=== PATIENT | male | born 1945 | race Caucasian/White ===

== ENCOUNTER → 2016-07-05 | Outpatient (REF) | payer OTHER, MEDICARE, MEDICAID ==
[2016-07-05 16:29] LABS: ALBUMIN 3.5 GM/DL (3.2-5.2); ALBUMIN/GLOBULIN RATIO 1.06 (1.00-1.93); ALKALINE PHOSPHATASE 59 U/L (45-117); ALT/SGPT 17 U/L (12-78); ANION GAP 6 MEQ/L (8-16); AST/SGOT 14 U/L (15-37); BILIRUBIN,TOTAL 0.4 MG/DL (0.2-1.0); BLOOD UREA NITROGEN 15 MG/DL (7-18); CALCIUM LEVEL 8.6 MG/DL (8.8-10.2); CARBON DIOXIDE LEVEL 28 MEQ/L (21-32); CHLORIDE LEVEL 104 MEQ/L (98-107); CHOLESTEROL LEVEL 155 MG/DL (<200); CREATININE FOR GFR 1.05 MG/DL (0.70-1.30); GLOMERULAR FILTRATION RATE > 60.0 (>42); GLUCOSE, FASTING 206 MG/DL (83-110); MAGNESIUM LEVEL 1.6 MG/DL (1.8-2.4); POTASSIUM SERUM 4.3 MEQ/L (3.5-5.1); SODIUM LEVEL 138 MEQ/L (136-145); TOTAL PROTEIN 6.8 GM/DL (6.4-8.2); TRIGLYCERIDES LEVEL 91 MG/DL (<150)
== END ==
LOC: M SFHCLACO 09:26
PROVIDERS: ATTEND Physician Assistant
DX: I10 Essential (primary) hypertension (principal); E78.1 Pure hyperglyceridemia; E11.49 Type 2 diabetes mellitus with other diabetic neurological complication; E61.2 Magnesium deficiency; E55.9 Vitamin D deficiency, unspecified

== ENCOUNTER 2016-08-08 02:58 | Emergency (ER) | payer MEDICAID, MEDICARE, OTHER ==
[~2016-08-08] VITALS: Ht 170.2 cm; Wt 100.7 kg
[2016-08-08 03:10] VITALS: BP 161/75
--- NOTE | 2016-08-08 06:20 | REPUSA ---
CLINICAL HISTORY: Right hip pain. TECHNIQUE: Multiple axial CT images were obtained through chest without IV contrast material. MPR cor onal and sagittal sequences were obtained. COMMENTS: There is no evidence of pleural or parenchymal mass. Bilateral basilar atelectatic pulmonary changes. There are no pleural effusions. There is no evidence of hilar or mediastinal lymphadenopathy. The he art and great vessels are within normal limits. The visualized portions of the liver are of uniform attenuation without mass or defect. There is no i ntra or extrahepatic biliary ductal dilatation. The spleen is unremarkable. The visualized pancreas i s of normal contour and attenuation characteristics. There is no evidence of adrenal mass. The visual ized portions of the kidneys present no abnormalities. The bony structures are free of lytic or blastic lesions. Multilevel degenerative changes are seen in volving the thoracic spine. Scattered calcifications are seen involving the aorta and visualized ana r branches compatible with atherosclerosis. Gallstones. IMPRESSION: Bilateral basilar atelectatic pulmonary changes. Gallstones. Thank you for your kind referral of this patient.
== END 2016-08-08 07:15 | disposition home or self-care (01) ==
LOC: EDBD 02:58 → M ED 04:22
DX: S20.219A Contusion of unspecified front wall of thorax, initial encounter (principal); W19.XXXA Unspecified fall, initial encounter; Y92.099 Unspecified place in other non-institutional residence as the place of occurrence of the external cause; Y93.9 Activity, unspecified; Y99.9 Unspecified external cause status; J98.8 Other specified respiratory disorders; Z88.0 Allergy status to penicillin

== ENCOUNTER → 2016-10-04 | Outpatient (REF) | payer OTHER, MEDICAID ==
[2016-10-04 15:25] LABS: ALBUMIN 3.5 GM/DL (3.2-5.2); ALBUMIN/GLOBULIN RATIO 1.06 (1.00-1.93); ALKALINE PHOSPHATASE 61 U/L (45-117); ALT/SGPT 18 U/L (12-78); ANION GAP 7 MEQ/L (8-16); AST/SGOT 12 U/L (15-37); BILIRUBIN,TOTAL 0.3 MG/DL (0.2-1.0); BLOOD UREA NITROGEN 14 MG/DL (7-18); CALCIUM LEVEL 8.7 MG/DL (8.8-10.2); CARBON DIOXIDE LEVEL 28 MEQ/L (21-32); CHLORIDE LEVEL 103 MEQ/L (98-107); CHOLESTEROL LEVEL 146 MG/DL (<200); CREATININE FOR GFR 1.03 MG/DL (0.70-1.30); GLOMERULAR FILTRATION RATE > 60.0 (>42); GLUCOSE, FASTING 115 MG/DL (83-110); MAGNESIUM LEVEL 1.7 MG/DL (1.8-2.4); SODIUM LEVEL 138 MEQ/L (136-145); TOTAL PROTEIN 6.8 GM/DL (6.4-8.2); TRIGLYCERIDES LEVEL 127 MG/DL (<150)
== END ==
LOC: M SFHCLACO 09:35
PROVIDERS: ATTEND Physician Assistant
DX: I10 Essential (primary) hypertension (principal); E78.1 Pure hyperglyceridemia; E11.49 Type 2 diabetes mellitus with other diabetic neurological complication; E61.2 Magnesium deficiency

== ENCOUNTER → 2017-03-09 | Outpatient (REF) | payer OTHER, MEDICAID ==
[2017-03-09 14:56] LABS: ALBUMIN/GLOBULIN RATIO 1.08 (1.00-1.93); BILIRUBIN,TOTAL 0.4 MG/DL (0.2-1.0); CALCIUM LEVEL 9.2 MG/DL (8.8-10.2); CREATININE FOR GFR 1.39 MG/DL (0.70-1.30); GLOMERULAR FILTRATION RATE 53.6 (>42); TOTAL PROTEIN 7.7 GM/DL (6.4-8.2)
[2017-03-09 14:57] LABS: POTASSIUM SERUM 5.3 MEQ/L (3.5-5.1)
== END ==
LOC: M SFHCLACO 10:47
PROVIDERS: ATTEND Physician Assistant
DX: I10 Essential (primary) hypertension (principal); E78.1 Pure hyperglyceridemia; E11.49 Type 2 diabetes mellitus with other diabetic neurological complication; E61.2 Magnesium deficiency; E55.9 Vitamin D deficiency, unspecified

== ENCOUNTER → 2017-06-13 | Outpatient (REF) | payer OTHER, MEDICAID ==
[2017-06-13 14:30] LABS: ALBUMIN 3.4 GM/DL (3.2-5.2); ALBUMIN/GLOBULIN RATIO 1.03 (1.00-1.93); ALKALINE PHOSPHATASE 64 U/L (45-117); ALT/SGPT 15 U/L (12-78); ANION GAP 8 MEQ/L (8-16); AST/SGOT 12 U/L (7-37); BILIRUBIN,TOTAL 0.4 MG/DL (0.2-1.0); BLOOD UREA NITROGEN 17 MG/DL (7-18); CARBON DIOXIDE LEVEL 29 MEQ/L (21-32); CHLORIDE LEVEL 108 MEQ/L (98-107); CHOLESTEROL LEVEL 158 MG/DL (<200); CREATININE FOR GFR 1.03 MG/DL (0.70-1.30); GLOMERULAR FILTRATION RATE > 60.0 (>42); GLUCOSE, FASTING 136 MG/DL (70-100); HDL CHOLESTEROL 44 MG/DL (>40); MAGNESIUM LEVEL 1.9 MG/DL (1.8-2.4); NON-HDL-C 114 MG/DL; POTASSIUM SERUM 4.3 MEQ/L (3.5-5.1); SODIUM LEVEL 145 MEQ/L (136-145); TOTAL PROTEIN 6.7 GM/DL (6.4-8.2); TRIGLYCERIDES LEVEL 95 MG/DL (<150)
[2017-06-13 14:42] LABS: ESTIMATED AVERAGE GLUCOSE 212 MG/DL (60-110)
== END ==
LOC: M SFHCLACO 09:25
DX: E78.1 Pure hyperglyceridemia (principal); I10 Essential (primary) hypertension; E11.49 Type 2 diabetes mellitus with other diabetic neurological complication; E61.2 Magnesium deficiency; E55.9 Vitamin D deficiency, unspecified
CPT/HCPCS: 83735

== ENCOUNTER 2017-10-21 18:19 | Emergency (ER) | payer OTHER, MEDICAID ==
[2017-10-21 19:35] LABS: BASO % 0.6 % (0.0-1.0); EOS # 0.4 10^3/uL (0.0-0.50); EOS % 5.2 % (0.0-3.0); HEMATOCRIT 38.1 % (42.0-52.0); HEMOGLOBIN 12.6 g/dl (13.5-17.5); IMMATURE GRANULOCYTE % 0.3 % (0-3.0); LYMPH # 1.3 10^3/uL (1.5-4.5); LYMPH % 17.6 % (24.0-44.0); MEAN CORPUSCULAR HEMOGLOBIN 28.8 pg (27.0-33.0); MEAN CORPUSCULAR HGB CONC 33.1 g/dl (32.0-36.5); MEAN CORPUSCULAR VOLUME 87.2 fl (80.0-96.0); MONO # 0.4 10^3/uL (0.0-0.8); MONO % 5.6 % (0.0-5.0); NEUTROPHILS % 70.7 % (36.0-66.0); PLATELET COUNT, AUTOMATED 231 10^3/uL (150-450); RED BLOOD COUNT 4.37 10^6/uL (4.30-6.10); RED CELL DISTRIBUTION WIDTH 13.5 % (11.5-14.5); WHITE BLOOD COUNT 7.1 10^3/uL (4.0-10.0)
[2017-10-21 19:59] LABS: ALBUMIN 3.3 GM/DL (3.2-5.2); ALBUMIN/GLOBULIN RATIO 0.89 (1.00-1.93); ALKALINE PHOSPHATASE 69 U/L (45-117); ALT/SGPT 19 U/L (12-78); ANION GAP 8 MEQ/L (8-16); AST/SGOT 12 U/L (7-37); BILIRUBIN,DIRECT < 0.1 MG/DL (0.0-0.2); BILIRUBIN,TOTAL 0.3 MG/DL (0.2-1.0); BLOOD UREA NITROGEN 22 MG/DL (7-18); CARBON DIOXIDE LEVEL 26 MEQ/L (21-32); CHLORIDE LEVEL 106 MEQ/L (98-107); GLOMERULAR FILTRATION RATE 57.9 (>42); GLUCOSE, FASTING 257 MG/DL (70-100); LIPASE 100 U/L (73-393); POTASSIUM SERUM 4.9 MEQ/L (3.5-5.1); SODIUM LEVEL 140 MEQ/L (136-145)
[2017-10-21 20:01] LABS: LACTIC ACID SEPSIS PROTOCOL 1.4 MMOL/L (0.4-2.0)
== END 2017-10-21 20:29 | disposition home or self-care (01) ==
LOC: M ED 18:19
DX: R10.9 Unspecified abdominal pain (principal); R05 Cough; E11.9 Type 2 diabetes mellitus without complications; I10 Essential (primary) hypertension; E78.9 Disorder of lipoprotein metabolism, unspecified; K21.9 Gastro-esophageal reflux disease without esophagitis; Z88.0 Allergy status to penicillin; Z79.899 Other long term (current) drug therapy; Z79.4 Long term (current) use of insulin
CPT/HCPCS: 74021

== ENCOUNTER → 2018-06-15 | Outpatient (REF) | payer OTHER, MEDICAID, MEDICARE ==
[~2018-06-15] MED LIST: BRIM1OPD OU; CALC600T7 PO; DESI13CR2 TOP; ESOM1CAP5 PO; EZET10TA PO; FERR1TAB8 PO; HYDR25TAB PO; LATA5OPD OU; LEVE1INJ5 SC; LISI-538 PO; MAGN64TASA PO; METF10004 PO; NOVOINJ3 SC; PIOG1TAB37 PO; TAB-TAB5 PO; TYLE500T78 PO; VITA50005 PO
[2018-06-15 17:41] LABS: HEMOGLOBIN A1c 8.6 %
== END ==
LOC: M LABDRAWP 14:26
PROVIDERS: ATTEND Physician Assistant
DX: Z11.3 Encounter for screening for infections with a predominantly sexual mode of transmission (principal); E11.49 Type 2 diabetes mellitus with other diabetic neurological complication

== ENCOUNTER 2018-10-14 12:26 | Emergency (ER) | payer MEDICARE, MEDICAID ==
[~2018-10-14] VITALS: Ht 170.2 cm; Wt 102.7 kg
[~2018-10-14 12:26] MED LIST changes: -EZET10TA PO; +EZET10TA21 PO; +LATA0.0013 OU; -LATA5OPD OU
[2018-10-14 12:59] LABS: BASO % 0.5 % (0.0-1.0); EOS # 0.2 10^3/uL (0.0-0.50); EOS % 1.9 % (0.0-3.0); HEMATOCRIT 37.8 % (42.0-52.0); HEMOGLOBIN 12.5 g/dl (13.5-17.5); LYMPH # 1.5 10^3/uL (1.5-4.5); LYMPH % 18.6 % (24.0-44.0); MEAN CORPUSCULAR HEMOGLOBIN 29.7 pg (27.0-33.0); MEAN CORPUSCULAR HGB CONC 33.1 g/dl (32.0-36.5); MEAN CORPUSCULAR VOLUME 89.8 fl (80.0-96.0); MONO # 0.4 10^3/uL (0.0-0.8); MONO % 5.2 % (0.0-5.0); NEUTROPHILS # 5.8 10^3/uL (1.8-7.7); NEUTROPHILS % 73.4 % (36.0-66.0); PLATELET COUNT, AUTOMATED 241 10^3/uL (150-450); RED BLOOD COUNT 4.21 10^6/uL (4.30-6.10); WHITE BLOOD COUNT 7.9 10^3/uL (4.0-10.0)
[2018-10-14 13:29] LABS: ALBUMIN 3.7 GM/DL (3.2-5.2); ALT/SGPT 19 U/L (12-78); BILIRUBIN,DIRECT 0.1 MG/DL (0.0-0.2); BILIRUBIN,TOTAL 0.4 MG/DL (0.2-1.0); CK-MB VALUE MASS 2.5 NG/ML (<3.6); CPK CREATINE PHOSPHOKINASE 114 U/L (39-308); LIPASE 67 U/L (73-393); MB/CK RELATIVE INDEX 2.19 (< OR =4); NT-PRO BNP 108 PG/ML (<125); TOTAL PROTEIN 7.3 GM/DL (6.4-8.2); TROPONIN I < 0.02 NG/ML (< 0.10)
[2018-10-14] MEDS ORDERED: ISOVUE-370 76% 100ML VIAL (Q9967) As Ordered ONE (13:39)
--- NOTE | 2018-10-14 14:27 | REP ---
CHEST, SINGLE VIEW: Single view of the chest is performed and compared to a prior study of 11/25/2017. There is mild cardiomegaly. There is no acute infiltrate. There is calcification of the thoracic aorta. The mediastinal silhouette is unchanged. IMPRESSION: No acute infiltrate. Mild cardiomegaly. Electronically Signed by Rodolfo Barfield MD 10/15/2018 12:01 A
--- NOTE | 2018-10-14 15:08 | REP ---
CT ABDOMEN AND PELVIS WITH IV CONTRAST: TECHNIQUE: Axial contrast enhanced images from the lung bases to the pubic symphysis using 100 mL Isovue 370 intravenous contrast material with multiplanar reformations. Visualized lung bases demonstrate no evidence of acute infiltrate. The liver is unremarkable. There are several gallstones in the gallbladder without evidence of gallbladder wall edema or biliary dilatation. Spleen is normal in size with no intrinsic abnormality. The adrenals and pancreas are unremarkable. The kidneys demonstrate no mass or hydronephrosis. There is atherosclerotic calcification of the abdominal aorta without aneurysm. Slightly enlarged inguinal lymph nodes bilaterally appear stable compared to the prior study of 07/20/2014. No periaortic adenopathy is seen. Anterior skin thickening of the abdomen is also similar to prior study. No bowel thickening or inflammation is seen. There is no free air or free fluid. Bladder is unremarkable in appearance. IMPRESSION: No acute findings. No free air or free fluid. Gallstones in the gallbladder without evidence of gallbladder wall edema or biliary dilatation. Mildly prominent lymph nodes in the inguinal regions are stable compared to prior CT of 07/20/2014. Electronically Signed by Rodolfo Barfield MD 10/15/2018 12:07 A
[2018-10-14 16:02] VITALS: BP 158/71
--- NOTE | 2018-10-14 19:49 | ECGEPIP ---
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
== END 2018-10-14 16:06 | disposition home or self-care (01) ==
LOC: M ED 12:26 → EDBD 12:26 → M ED 16:06
DX: R05 Cough (principal); R60.0 Localized edema; T67.9XXA Effect of heat and light, unspecified, initial encounter; X30.XXXA Exposure to excessive natural heat, initial encounter; Y92.098 Other place in other non-institutional residence as the place of occurrence of the external cause; E11.9 Type 2 diabetes mellitus without complications; I10 Essential (primary) hypertension; K21.9 Gastro-esophageal reflux disease without esophagitis; E78.1 Pure hyperglyceridemia; G62.9 Polyneuropathy, unspecified; Z88.0 Allergy status to penicillin; Z89.511 Acquired absence of right leg below knee; Z79.899 Other long term (current) drug therapy; Z79.4 Long term (current) use of insulin
CPT/HCPCS: 71045; 74177; 80047; 80076; 81001; 82550; 82553; 83690; 83880; 84443; 84484; 85025; 93005; 93041; 94760; 99285; Q9967

== ENCOUNTER 2019-03-01 12:17 | Emergency (ER) | payer MEDICARE, MEDICAID ==
[~2019-03-01] VITALS: Ht 170.2 cm; Wt 102.3 kg
[2019-03-01] MEDS ORDERED: AMLO5TAB6 PO ×2 (12:40→15:56)
--- NOTE | 2019-03-01 13:16 | REP ---
CT brain: 03/01/2019. Indication: Hemorrhage. Headache. Comparison: None. Technique: Unenhanced axial CT images of the brain were obtained from skull base to vertex. Findings: There is no acute intracranial hemorrhage, acute cortical infarction, mass effect or hydrocephalous. Volume loss is present. There are a few patchy areas of cerebral hemisphere white matter hypoattenuation most consistent with chronic small vessel disease. Impression: No acute intracranial process. Electronically Signed by Moi Crane DO 03/01/2019 01:08 P
[2019-03-01 13:25] LABS: HEMATOCRIT 37.2 % (42.0-52.0); HEMOGLOBIN 12.4 g/dl (13.5-17.5); MEAN CORPUSCULAR HEMOGLOBIN 29.5 pg (27.0-33.0); MEAN CORPUSCULAR HGB CONC 33.3 g/dl (32.0-36.5); MEAN CORPUSCULAR VOLUME 88.6 fl (80.0-96.0); PLATELET COUNT, AUTOMATED 292 10^3/uL (150-450); WHITE BLOOD COUNT 9.6 10^3/uL (4.0-10.0)
[2019-03-01 13:44] LABS: CALCIUM LEVEL 9.4 MG/DL (8.8-10.2); CREATININE FOR GFR 1.64 MG/DL (0.70-1.30); GLOMERULAR FILTRATION RATE 44.1 (>42); POTASSIUM SERUM 5.7 MEQ/L (3.5-5.1)
[2019-03-01] MEDS ORDERED: NS 1,000 ML IV ONE (14:00)
[2019-03-01] MEDS ORDERED: LISI10TA4 PO (15:56)
[2019-03-01 16:20] VITALS: BP 160/74
--- NOTE | 2019-03-01 20:05 | ECGEPIP ---
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
== END 2019-03-01 16:29 | disposition home or self-care (01) ==
LOC: EDBD 12:17 → M ED 12:17
DX: E86.0 Dehydration (principal); E87.5 Hyperkalemia; E11.9 Type 2 diabetes mellitus without complications; I10 Essential (primary) hypertension; Z79.899 Other long term (current) drug therapy; Z79.4 Long term (current) use of insulin; Z88.0 Allergy status to penicillin

== ENCOUNTER 2019-04-19 16:22 | Emergency (ER) | payer MEDICARE, MEDICAID ==
[~2019-04-19] VITALS: Ht 170.2 cm; Wt 102.2 kg
[~2019-04-19 16:22] MED LIST changes: +AMLO5TAB6 PO; +LISI10TA4 PO
[2019-04-19] MEDS ORDERED: INSUDET SC (16:42)
[2019-04-19] MEDS ORDERED: NORV5TAB PO (16:42)
[2019-04-19 18:25] VITALS: BP 144/69
== END 2019-04-19 18:26 | disposition home or self-care (01) ==
LOC: M ED 16:22 → EDBD 16:22 → M ED 18:26
DX: S70.311A Abrasion, right thigh, initial encounter (principal); W10.1XXA Fall (on)(from) sidewalk curb, initial encounter; Y92.9 Unspecified place or not applicable; E11.9 Type 2 diabetes mellitus without complications; I10 Essential (primary) hypertension; E78.5 Hyperlipidemia, unspecified; D64.9 Anemia, unspecified; Z88.0 Allergy status to penicillin; Z79.84 Long term (current) use of oral hypoglycemic drugs; Z79.4 Long term (current) use of insulin; Z79.899 Other long term (current) drug therapy

== ENCOUNTER 2020-03-18 18:56 | Inpatient (IN) | payer MEDICAID, MEDICARE, OTHER ==
[~2020-03-18] VITALS: Ht 170.2 cm; Wt 73.6 kg
[~2020-03-18 18:56] MED LIST changes: +AMLO1TAB24 PO; -AMLO5TAB6 PO; +CALC-212 PO; -CALC600T7 PO; +INSUDET SC; +NORV5TAB PO
[2020-03-18 20:15] LABS: BASO % 0.4 % (0.0-1.0); EOS % 0.1 % (0.0-3.0); HEMATOCRIT 32.1 % (42.0-52.0); HEMOGLOBIN 9.6 g/dl (13.5-17.5); LYMPH # 1.2 10^3/uL (1.5-5.0); LYMPH % 11.6 % (24.0-44.0); MEAN CORPUSCULAR HEMOGLOBIN 27.4 pg (27.0-33.0); MEAN CORPUSCULAR HGB CONC 29.9 g/dl (32.0-36.5); MEAN CORPUSCULAR VOLUME 91.5 fl (80.0-96.0); MONO # 0.6 10^3/uL (0.0-0.8); MONO % 5.7 % (0.0-5.0); NEUTROPHILS # 8.5 10^3/uL (1.5-8.5); NEUTROPHILS % 81.1 % (36.0-66.0); PLATELET COUNT, AUTOMATED 345 10^3/uL (150-450); RED BLOOD COUNT 3.51 10^6/uL (4.30-6.10); WHITE BLOOD COUNT 10.4 10^3/uL (4.0-10.0)
--- NOTE | 2020-03-18 20:18 | REP ---
INDICATION: preop COMPARISON: None. TECHNIQUE: Portable AP view of the chest FINDINGS: The mediastinum and cardiac silhouette are stable and within normal limits for portable technique. Subtle left lower lobe airspace disease cannot be excluded and requires correlation with auscultation and physical examination. No further consolidation. No effusion. No pneumothorax. Skeletal structures are intact. IMPRESSION: Questionable left lower lobe infiltrate. <Electronically signed by Vik Alcantar > 03/18/202014
--- NOTE | 2020-03-18 20:21 | REP ---
INDICATION: infection COMPARISON: None. TECHNIQUE: AP, lateral, bilateral oblique views . FINDINGS: Considerable areas of subcutaneous emphysema primarily along the lateral aspect of the distal foot. Underlying osseous changes involving the 5th toe cannot be excluded and raise the possibility of osteomyelitis. No obvious acute fracture. Underlying age-related osteopenia and degenerative changes noted. IMPRESSION: Significant subcutaneous emphysema consistent with underlying infectious process and ulceration. Osteomyelitis involving the 5th toe cannot be excluded. <Electronically signed by Vik Alcantar > 03/18/20 2017
[2020-03-18 20:25] LABS: INR 1.04; PROTHROMBIN TIME 13.8 SECONDS (12.5-14.3)
[2020-03-18 20:26] LABS: PARTIAL THROMBOPLASTIN TIME 32.5 SECONDS (24.2-38.5)
[2020-03-18] MEDS ORDERED: MEROPENEM INJ 1 GM in IV 1 EA IV ONE (20:30)
[2020-03-18 20:44] LABS: RSV AMPLIFICATION NEGATIVE (NEGATIVE)
[2020-03-18 20:55] LABS: ERYTHROCYTE SEDIMENTATION RATE 93 mm/hr (0-20)
[2020-03-18 20:56] LABS: ALBUMIN 2.2 GM/DL (3.2-5.2); ALT/SGPT 11 U/L (12-78); AMYLASE 16 U/L (25-115); BILIRUBIN,DIRECT 0.1 MG/DL (0.0-0.2); BILIRUBIN,TOTAL 0.4 MG/DL (0.2-1.0); BLOOD UREA NITROGEN 35 MG/DL (7-18); CALCIUM LEVEL 8.6 MG/DL (8.8-10.2); CARBON DIOXIDE LEVEL 17 MEQ/L (21-32); CHLORIDE LEVEL 102 MEQ/L (98-107); CK-MB VALUE MASS 6.3 NG/ML (<3.6); CPK CREATINE PHOSPHOKINASE 90 U/L (39-308); CREATININE FOR GFR 1.79 MG/DL (0.70-1.30); GLOMERULAR FILTRATION RATE 39.7 (>42); GLUCOSE, FASTING 599 MG/DL (70-100); LIPASE 59 U/L (73-393); POTASSIUM SERUM 4.7 MEQ/L (3.5-5.1); SODIUM LEVEL 135 MEQ/L (136-145); TOTAL PROTEIN 6.8 GM/DL (6.4-8.2); TROPONIN I < 0.02 NG/ML (< 0.10)
[2020-03-18] MEDS: LATANOPROST 0.005% OPHTH SOLN 2.5 ML OU SCH (21:00)
[2020-03-18] MEDS ORDERED: NS 1,000 ML IV ONE (21:00)
[2020-03-18] MEDS: BRIMONIDINE 0.1% OPHTH SOLN 5 ML OU SCH (21:00)
[2020-03-18] MEDS ORDERED: HumaLOG INSULIN (NovoLOG) PER UNIT SC STA (21:01)
[2020-03-18 21:20] LABS: OSMOLALITY SERUM 339 MOSM/KG (280-301)
[2020-03-18 21:21] LABS: ACETONE/KETONE > 46.00 MG/DL (<2.81)
[2020-03-18 21:55] LABS: ABG BASE EXCESS -12.9 (-2.0-2.0); ABG HCO3 12.5 MEQ/L (22.0-26.0); ABG O2 SATURATION 98.4 % (95.0-99.0); ABG PARTIAL PRESSURE CO2 27.4 mmHg (35.0-45.0); ABG PARTIAL PRESSURE O2 119.3 mmHg (75.0-100.0); ABG STANDARD HCO3 14.3 MEQ/L (22.0-26.0); ABG TOTAL CO2 13.3 MEQ/L (23.0-31.0); ABG pH (ARTERIAL) 7.277 UNITS (7.350-7.450)
[2020-03-18 22:02] LABS: HEMOGLOBIN A1c > 14.0 %
[2020-03-18] MEDS ORDERED: INSULIN REGULAR IN 0.9 % NACL 100 UNIT in IV 1 EA IV SCH ×4 (22:05→22:11)
[2020-03-18 22:06] LABS: ESTIMATED AVERAGE GLUCOSE 355 MG/DL (60-110)
[2020-03-18] MEDS ORDERED: NS 500 ML IV ONE (22:15)
[2020-03-18] MEDS ORDERED: HumuLIN R (REGULAR) INSULIN (NovoLIN R) **100U/ML** PER UNIT IV ONE (22:15)
[2020-03-18] MEDS ORDERED: INSULIN IV RATE CHANGE DOCUMENTATION ML/HR XX SCH (22:15)
[2020-03-18] MEDS ORDERED: LISI-538 PO (22:34)
[2020-03-18] MEDS ORDERED: INSUHUMDS SC (22:34)
[2020-03-18] MEDS ORDERED: ACET-897 PO (22:34)
[2020-03-18] MEDS ORDERED: NORV5TAB PO (22:34)
[2020-03-18] MEDS ORDERED: XALA0.007 OU (22:34)
[2020-03-18] MEDS ORDERED: VITA50005 PO (22:34)
--- NOTE | 2020-03-18 22:45 | HPEPDOC ---
[facility] Medical History & Physical Date of Admission Mar 18, 2020 Date of Service: Mar 18, 2020 Primary Care Physician: Cathleen Steen PA-C, LAC Attending Physician: JB RIZZO MD History and Physical TIME OF SERVICE: 1140pm CHIEF COMPLAINT: foot pain HISTORY OF PRESENT ILLNESS: One week ago, this 74 yr old M dropped a heavy box on his left foot which cause trauma to the top of the foot. Over the last week the pain, which he describes as dull and 4/10 in severity became worse therefore he decided to come to the hospital for evaluation. He denied having f/c/n/v/d. He admits to occasionally forgetting to take his meds, and thinks that he took them yesterday. He has been feeling thirstier than usual but denied urinating more than usual. He reported that his AM sugars usually range from 145 to 150. 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 Per office notes patient has had difficulties with compliance because of poor health literacy. FAMILY HISTORY: Denies family hx of DM, CAD, CVA or CKD ALLERGIES: Please see below. HOME MEDICATIONS: Please see below. PHYSICAL EXAMINATION: Vital Signs Date Time Temp Pulse Resp B/P (MAP) Pulse Ox O2 Delivery O2 Flow Rate FiO2 03/18/20 19:11 97.5 101 18 165/65 (98) 98 Room Air GENERAL APPEARANCE: well-nourished / well developed / NAD / doesnt appear toxic INTEGUMENT: the skin on the left foot and left lower leg is thickened & red and there are stasis dermatitis changes on the legs / there is a malodours 5cm x 6cm necrotic ulcer on the dorsal surface of the left foot; tendons of the toes are visible at the base of the ulcer HEENT: EOMI / MM slightly dry CARDIOVASCULAR: tachycardic / NMRG / radial pulses intact LUNGS: CTAB on RA ABDOMEN: contour distended MUSCULOSKELETAL: NCAT / HARPER in arms NEUROLOGICAL: CN 2-12 grossly intact / speech not dysarthric PSYCHIATRIC: A&Ox 3/ able to understand and follow all commands LABORATORY DATA: 03/18/20 20:02 IMAGING: Xray left foot IMPRESSION: Significant subcutaneous emphysema consistent with underlying infectious process and ulceration. Osteomyelitis involving the 5th toe cannot be excluded. Chest xray IMPRESSION: Questionable left lower lobe infiltrate. MICROBIOLOGY: blood cx pending. ASSESSMENT: Mr. Knott is a 74 yr old w a hx of IDDM2, polyneuropathy, R AKA, HTN, DLP and BERNADETTE who presented w c/o 1 week in duration foot pain 2/2 trauma and was found to have a necrotic DM foot ulcer on the dorsal part of his foot; he will be admitted for management of DKA and left foot osteomyelitis /cellulitis. PLAN: 1 DKA in IDDM2 He meets the criteria to diagnose DKA, specifically he has: glucose >250 + pH <7.30 + bicarbonate <18 + urine ketones + serum osmol >320 + AG >12 The triggers are likely a combination of noncompliance with meds because of poor health literacy and the foot infection. DKA MPM Score to predict risk of in hospital mortality = 0 points = 0.86% in hospital mortality Plan: admit to ICU /NPO / Insulin drip per protocol/ IVF (will start w NS w KCl @ 250ml/H / f/u blood cx, / f/u accuchecks Q1H, BMP Q4H, venous PH Q4H, osmol Q4H, Mag Q4H, phosphorus Q4H/ hypoglycemia protocol / DM education / hold all home DM meds 2. Left foot osteomyelitis / left foot and lower leg cellulitis He doesnt meet SIRS criteria Plan: admit to ICU / NPO/ IVF / Vancomycin for MRAS and Ceftriaxone for MSSA coverage / General Surgery consult / will ask the day time team to liase with to determine if additional imaging studies are needed and to contact the department of radiology to determine if MRIs will be available tomorrow (Alma Delia Watkins) if not they may consider ordering a tagged WBC scan or CT of the foot 3. BELLA vs CKD His Cr is 1.79 but I am not sure what his baseline is Plan: f/u Is and Os / f/u Ulytes for FENa / f/u PTH, Phosph, Hep C and renal US 4. Possible left lower lobe infiltrate He doesnt have URI symptoms therefore no need to treat 5. Chronic HTN Plan: amlodipine / hold Lisinopril 6. Hx of BERNADETTE Plan: f/u iron panel & stool occult / hold oral iron while acutely ill 7. DLP Plan: hold Zetia while NPO DVT Px w SCDs pending possible surgery Dispo: home after more than 2 midnights stay Laboratory Data Labs 24H Laboratory Tests 2 03/18/20 19:52: Urine Color STRAW, Urine Appearance CLEAR, Urine pH 5.0, Urine Specific [place] 1.022, Urine Protein NEGATIVE, Urine Glucose (UA) 3+H, Urine Ketones 2+H, Urine Blood NEGATIVE, Urine Nitrite NEGATIVE, Urine Bilirubin NEGATIVE, Urine Urobilinogen 0.2, Urine Leukocyte Esterase NEGATIVE, Urine WBC (Auto) 0, Urine RBC (Auto) 1, Urine Hyaline Casts (Auto) 0, Urine Bacteria (Auto) NEGATIVE, Urine Squamous Epithelial Cells 0, Urine Mucus (Auto) SMALL, Urine Sperm (Auto) 03/18/20 19:56: Coronavirus (COVID-19)(PCR) NEGATIVE, Influenza Type A (RT-PCR) NEGATIVE, Influe nza Type B (RT-PCR) NEGATIVE, Respiratory Syncytial Virus (PCR) NEGATIVE 03/18/20 20:02: Immature Granulocyte % (Auto) 1.1, Neutrophils (%) (Auto) 81.1H, Lymphocytes (%) (Auto) 11.6L, Monocytes (%) (Auto) 5.7H, Eosinophils (%) (Auto) 0.1, Basophils (%) (Auto) 0.4, Neutrophils # (Auto) 8.5, Lymphocytes # (Auto) 1.2L, Monocytes # (Auto) 0.6, Eosinophils # (Auto) 0.0, Basophils # (Auto) 0.0, Nucleated Red Blood Cells % (auto) 0.0, Erythrocyte Sedimentation Rate 93H, Prothrombin Time 13.8, Prothromb Time International Ratio 1.04, Activated Partial Thromboplast Time 32.5, Anion Gap 16, Glomerular Filtration Rate 39.7L, Estimated Mean Plasma Glucose 355H, Hemoglobin A1c > 14.0, Osmolality 339H, Lactic Acid Level 1.0, Calcium Level 8.6L, Total Bilirubin 0.4, Direct Bilirubin 0.1, Aspartate Amino Transf (AST/SGOT) 7, Alanine Aminotransferase (ALT/SGPT) 11L, Alkaline Phospha tase 103, Total Creatine Kinase 90, Creatine Kinase MB 6.3H, Creatine Kinase MB Relative Index 7.00H, Troponin I < 0.02, C-Reactive Protein, Quantitative 17.40H, Total Protein 6.8, Albumin 2.2L, Albumin/Globulin Ratio 0.5, Amylase Level 16L, Lipase 59L, B-Hydroxybutyrate > 46.00H 03/18/20 21:40: Blood Gas Bicarbonate Standard 14.3L, Arterial Blood pH 7.277L, Arterial Blood Partial Pressure CO2 27.4L, Arterial Blood Partial Pressure O2 119.3H, Arterial Blood Total CO2 13.3L, Arterial Blood HCO3 12.5L, Arterial Blood Base Excess - 12.9L, Arterial Blood Oxygen Saturation 98.4 Microbiology Microbiology 03/18/20 Blood Culture, Received Pending 03/18/20 Blood Culture, Received Pending Home Medications Scheduled Amlodipine Besylate (Norvasc) 5 Mg Tablet, 5 MG PO DAILY Brimonidine Tartrate (Alphagan P) 100 Drop/5 Ml Soln, 1 DROP OU BID Calcium Carbonate/Vitamin D3 (Calcium 600-Vit D3 200 Tablet) 1 Tab Tab, 1 TAB PO BID Ergocalciferol (Vitamin D2) (Vitamin D2) 50,000 Units Cap, 50,000 UNITS PO Q2WK Esomeprazole Magnesium (Esomeprazole Magnesium) 40 Mg Cap, 40 MG PO DAILY Ezetimibe (Ezetimibe) 10 Mg Tab, 10 MG PO DAILY Ferrous Sulfate (Ferrous Sulfate) 325 Mg Tab, 325 MG PO TID Insulin Detemir (Levemir Flextouch) 100 Unit/Ml Inj, 45 UNITS SC DAILY Insulin Detemir (Levemir) 100 Unit/1 Ml Vial, 40 UNITS SC QHS Insulin Human Lispro (Humalog) 100 Unit/1 Ml Vial, 1 DOSE SC AC PER SLIDING SCALE Latanoprost (Xalatan) 0.005% 2.5ML Drops, 1 DROP OU QHS Lisinopril (Lisinopril) 20 Mg Tablet, 20 MG PO DAILY Magnesium Chloride (Mag64) 64 Mg Tabcr, 64 MG PO BID Metformin HCl (Metformin HCl) 1,000 Mg Tab, 1,000 MG PO BID Multivitamin with Iron (Tab-A-Bharath with Iron) 1 Tab Tab, 1 TAB PO DAILY Pioglitazone HCl (Pioglitazone HCl) 30 Mg Tab, 30 MG PO DAILY Scheduled PRN Acetaminophen (Tylenol Extra Strength) 500 Mg Tablet, 1,000 MG PO Q6H PRN for PAIN / FEVER Allergies Coded Allergies: Penicillins (Verified Allergy, Mild, rash, 10/14/18) A-FIB/CHADSVASC A-FIB History Current/History of A-Fib/PAF?: No Current PO Anticoag Therapy: No JB RIZZO MD Mar 18, 2020 22:45
[2020-03-18 23:48] LABS: VENOUS BASE EXCESS -9.8 (-2.0-2.0); VENOUS HCO3 16.7 MEQ/L (23.0-27.0); VENOUS O2 SATURATION 89.4 % (60.0-80.0); VENOUS PARTIAL PRESSURE CO2 38.7 mmHg (38.0-50.0); VENOUS PARTIAL PRESSURE O2 60.3 mmHg (30.0-50.0); VENOUS PH 7.253 UNITS (7.330-7.430); VENOUS STANDARD HCO3 16.5 MEQ/L; VENOUS TOTAL CO2 17.9 MEQ/L (24.0-28.0)
[2020-03-19] MEDS ORDERED: VANCOMYCIN HCL 750 MG, VIAL MATE ADAPTER 1 EACH in D5W 250 ML IV ONE ×4 (01:00)
[2020-03-19 01:35] LABS: CALCIUM LEVEL 8.8 MG/DL (8.8-10.2); CREATININE FOR GFR 1.67 MG/DL (0.70-1.30); MAGNESIUM LEVEL 2.2 MG/DL (1.8-2.4); PHOSPHORUS LEVEL 2.5 MG/DL (2.5-4.9)
[2020-03-19 01:36] LABS: PERCENT SATURATION 34.6 % (19.7-50.0)
[2020-03-19] MEDS: KCL 20MEQ in NS 1000ML 1,000 ML IV SCH ×2 (02:14→02:57)
[2020-03-19] MEDS: INSULIN REGULAR IN 0.9 % NACL 100 UNIT in IV 1 EA IV SCH ×10 (02:41→11:41)
[2020-03-19] MEDS: cefTRIAXone SOD 2 GM in D5W MINI-BAG PLUS 50 ML IV SCH (02:57)
[2020-03-19 03:28] LABS: VENOUS BASE EXCESS -2.6 (-2.0-2.0); VENOUS HCO3 22.6 MEQ/L (23.0-27.0); VENOUS O2 SATURATION 91.5 % (60.0-80.0); VENOUS PARTIAL PRESSURE CO2 40.5 mmHg (38.0-50.0); VENOUS PARTIAL PRESSURE O2 58.2 mmHg (30.0-50.0); VENOUS PH 7.364 UNITS (7.330-7.430); VENOUS STANDARD HCO3 22.2 MEQ/L; VENOUS TOTAL CO2 23.8 MEQ/L (24.0-28.0)
[2020-03-19] MEDS: INSULIN IV RATE CHANGE DOCUMENTATION ML/HR XX SCH ×4 (04:04→11:42)
[2020-03-19 04:15] LABS: CALCIUM LEVEL 8.1 MG/DL (8.8-10.2); CREATININE FOR GFR 1.61 MG/DL (0.70-1.30); GLOMERULAR FILTRATION RATE 44.9 (>42); PHOSPHORUS LEVEL 1.8 MG/DL (2.5-4.9); POTASSIUM SERUM 3.7 MEQ/L (3.5-5.1)
[2020-03-19] MEDS: KCL 40MEQ IN D5/0.45NS 1000ML 1,000 ML IV SCH ×3 (06:11→14:59)
[2020-03-19 07:46] LABS: VENOUS BASE EXCESS -7.8 (-2.0-2.0); VENOUS HCO3 17.2 MEQ/L (23.0-27.0); VENOUS O2 SATURATION 98.8 % (60.0-80.0); VENOUS PARTIAL PRESSURE O2 139.2 mmHg (30.0-50.0); VENOUS PH 7.334 UNITS (7.330-7.430); VENOUS STANDARD HCO3 18.1 MEQ/L; VENOUS TOTAL CO2 18.2 MEQ/L (24.0-28.0)
[2020-03-19 08:08] LABS: HEMATOCRIT 28.4 % (42.0-52.0); HEMOGLOBIN 8.9 g/dl (13.5-17.5); MEAN CORPUSCULAR HEMOGLOBIN 27.9 pg (27.0-33.0); MEAN CORPUSCULAR HGB CONC 31.3 g/dl (32.0-36.5); PLATELET COUNT, AUTOMATED 331 10^3/uL (150-450); RED BLOOD COUNT 3.19 10^6/uL (4.30-6.10); WHITE BLOOD COUNT 11.6 10^3/uL (4.0-10.0)
[2020-03-19 08:27] LABS: CREATININE FOR GFR 1.31 MG/DL (0.70-1.30); GLOMERULAR FILTRATION RATE 56.9 (>42); PHOSPHORUS LEVEL 1.7 MG/DL (2.5-4.9); POTASSIUM SERUM 4.1 MEQ/L (3.5-5.1)
[2020-03-19] MEDS: amLODIPine 5 MG TAB PO SCH (08:40)
--- NOTE | 2020-03-19 08:56 | CR.PDOC ---
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 Throughout this time he was able to ambulate with some discomfort. He notes subsequent swelling of his foot, erythema of the foot and the leg. Despite this he denies any fevers or chills and generally was not feeling terribly ill. The pain became worse eventually that led him to the emergency room. In the emergency room he was fo und to have redness extending from his foot to the area below the patella. He tells me he does get some redness over the area which results with antibiotics after a few days. He does have some chronic skin changes involving that red area. Despite his history has never been seen and evaluated by a vascular surgeon. He reports neuropathy to the leg secondary to his long standing diabetes He denies night pains, claudication type pains. PAST MEDICAL HISTORY: 1. Diabetes on insulin with neuropathy, prior diabetic foot infection on the right leg resulting in a below-knee amputation 2. Hypertension . PAST SURGICAL HISTORY: INCLUDES: 1. Appendectomy 2. Right below-knee amputation. ALLERGIES: Please see below. HOME MEDICATIONS: Please see below. REVIEW OF SYSTEMS: GENERAL: Patient symptoms are roughly about 2 weeks old with progression following dropping a heavy box on his left foot. He denies fevers or chills, abnormal weight loss.. HEENT: Reports history of cataracts, wears dentures NECK: Denies any neck pain CARDIOVASCULAR: [Denies chest pain and palpitations]. MUSCULOSKELETAL: [Denies arthralgias, back pain and thrombophlebitis]. NEUROLOGIC: [Denies headache, stroke and transient ischemic attack]. HEMATOLOGY/ONCOLOGY: [Denies bleeding or clotting disorder]. Patient is not on any anticoagulant HEART: Reports a history of heart murmurs is a child. PULMONARY: [Denies chronic cough, dyspnea and wheezing]. GASTROINTESTINAL: Denies any abdominal pain, diarrhea or constipation. GENITOURINARY: Denies dysuria, reports frequency. ENDOCRINE: Reports polyuria, polydipsia INFECTIOUS: [Denies any recent upper respiratory tract infection, UTI, need for use of antibiotics]. NUTRITION: [Reports good appetite]. PHYSICAL EXAMINATION: VITALS SIGNS: Please see below. GENERAL APPEARANCE: Patient seen laying flat on bed does not appear to be in any acute distress looks overall comfortable. He is pleasant and cooperative. SKIN: Warm and dry. HEENT: [Normocephalic, atraumatic. Lips and mucosa appear dry]. NECK: [Supple, no thyromegaly. No obvious jugular venous distention]. LUNGS: [Clear to auscultation bilaterally. No wheezing appreciated]. HEART: Regular heart rate and rhythm. ABDOMEN: Abdomen is round, soft, nondistended. Nontender. EXTREMITIES: Right leg below-knee amputation. He is wearing his stump sock Left leg: Black dry gangrene on the fifth toe. He has an open wound at the metatarsal aspect medial aspect of the dorsum of the forefoot involving the metatarsal. Dry, woody appearance with black eschar of the remaining skin and subcutaneous tissue. Generalized swelling on the foot. Deep red erythema. I don't feel any crepitations, though there is some mild dermal thickening with the skin erythema. No plantar ulcers. There are small scattered necrotic ulcer of the skin laterally and at the back of his ankle, with no active drainage. The erythema of the foot extending circumferentially to the lower leg up to about 3 cm laterally below the patella with some evidence of some chronic skin changes involving that portion of the foot. Also some mild dermal thickening. No definite area of fluctuance. Sent from flaking of the skin no skin breakdown. I feel a decreased pulse on the popliteal and could not definitely feel a pulse at the dorsalis pedis or posterior tibial area felt was told that Dr. ortega were present there. Pitting edema on the leg and foot. Mild tenderness on manipulation, pressure and leg and foot. Patient only partially to rotate the an kle, small motions on the toes. Patient's only able to have good sensation at the plantar area. ANCILLARIES: LABORATORY DATA: Please see below. IMAGING STUDIES: Foot x-ray. IMPRESSION AND PLAN: 74-year-old male with diabetes, poorly controlled with diabetes ketoacidosis Right foot and leg infection secondary to recent trauma which looks like there is evidence of poor healing, necrosis, dry gangrene of the fifth toe and portion of the skin and subcutaneous at the level of the metatarsals on the first toe, scattered skin necrosis. He has ongoing cellulitis or skin infection. Certainly there is a concern for possibility of necrotizing soft tissue infection though clinically he looks well for somebody with extensive skin erythema surrounding the foot and the leg that probably this is not a necrotizing soft tissue infection of the foot or otherwise what we know as a typical diabetic foot infection that could require emergent amputation. My concern on debriding those portions with necrosis is that this won't heal as he is already demonstrating failure to heal with the dry gangrene on the forefoot. I think he needs a formal vascular evaluation. Unfortunately we don't have a vascular surgery available to us through the holiday . Looked [facility] the [facility] He does not have an acutely ischemic leg to require emergent transfer. For now, continue to elevate the leg. Continue him on antibiotics. He is hungry cell start him on a regular diet. I'll try to get some noninvasive studies over the weekend. He is human and creatinine are elevated so we cannot get contrast studies to evaluate the status of the blood vessels on his lower leg. The depth and extent of the erythema seems to be resolving slightly with an tibiotics. Still with this it's hard to ascertain whether we can save the foot are not until we know what the vascular status is. We will continue to keep an eye on him over the weekend. If he does make a turn for worsening may need an emergent guillotine amputation. Given that he already has a right below-knee amputation, the chances of him being able to ambulate is very low. I explained all this to the patient and he seems to understand that. I will hold off on any surgical debridement on the wound. I will get some noninvasive studies over the weekend. Please ask our vascular surgeon to evaluate him, Monday. He'll be followed up by the epic professional surgeon over the weekend. Vital Signs Vital Signs Date Time Temp Pulse Resp B/P (MAP) Pulse Ox O2 Delivery O2 Flow Rate FiO2 03/19/20 07:45 85 135/67 (89) 97 Room Air 03/19/20 06:14 97.7 03/19/20 02:15 18 I&Os I&O- Last 24 Hours up to 6 AM 03/19/20 06:00 Intake Total 2109 ml Balance 2109 ml Laboratory Data Labs 24H Laboratory Tests 2 03/18/20 19:52: Urine Color STRAW, Urine Appearance CLEAR, Urine pH 5.0, Urine Specific [place] 1.022, Urine Protein NEGATIVE, Urine Glucose (UA) 3+H, Urine Ketones 2+H, Urine Blood NEGATIVE, Urine Nitrite NEGATIVE, Urine Bilirubin NEGATIVE, Urine Urobilinogen 0.2, Urine Leukocyte Esterase NEGATIVE, Urine WBC (Auto) 0, Urine RBC (Auto) 1, Urine Hyaline Casts (Auto) 0, Urine Bacteria (Auto) NEGATIVE, Urine Squamous Epithelial Cells 0, Urine Mucus (Auto) SMALL, Urine Sperm (Auto) 03/18/20 19:56: Coronavirus (COVID-19)(PCR) NEGATIVE, Influenza Type A (RT-PCR) NEGATIVE, Influenza Type B (RT-PCR) NEGATIVE, Respiratory Syncytial Virus (PCR) NEGATIVE 03/18/20 20:02: Immature Granulocyte % (Auto) 1.1, Neutrophils (%) (Auto) 81.1H, Lymphocytes (%) (Auto) 11.6L, Monocytes (%) (Auto) 5.7H, Eosinophils (%) (Auto) 0.1, Basophils (%) (Auto) 0.4, Neutrophils # (Auto) 8.5, Lymphocytes # (Auto) 1.2L, Monocytes # (Auto) 0.6, Eosinophils # (Auto) 0.0, Basophils # (Auto) 0.0, Nucleated Red Blood Cells % (auto) 0.0, Erythrocyte Sedimentation Rate 93H, Prothrombin Time 13.8, Prothromb Time International Ratio 1.04, Activated Partial Thromboplast Time 32.5, Anion Gap 16, Glomerular Filtration Rate 39.7L, Estimated Mean Plasma Glucose 355H, Hemoglobin A1c > 14.0, Osmolality 339H, Lactic Acid Level 1.0, Calcium Level 8.6L, Total Bilirubin 0.4, Direct Bilirubin 0.1, Aspartate Amino Transf (AST/SGOT) 7, Alanine Aminotransferase (ALT/SGPT) 11L, Alkaline Phosphatase 103, Total Creatine Kinase 90, Creatine Kinase MB 6.3H, Creatine Kinase MB Relative Index 7.00H, Troponin I < 0.02, C-Reactive Protein, Quantitative 17.40H, Total Protein 6.8, Albumin 2.2L, Albumin/Globulin Ratio 0.5, Amylase Level 16L, Lipase 59L, B-Hydroxybutyrate > 46.00H 03/18/20 21:40: Blood Gas Bicarbonate Standard 14.3L, Arterial Blood pH 7.277L, Arterial Blood Partial Pressure CO2 27.4L, Arterial Blood Partial Pressure O2 119.3H, Arterial Blood Total CO2 13.3L, Arterial Blood HCO3 12.5L, Arterial Blood Base Excess - 12.9L, Arterial Blood Oxygen Saturation 98.4 03/18/20 22:34: Bedside Glucose (Misc Panel) 355H 03/18/20 23:08: Bedside Glucose (Misc Panel) 285H 03/18/20 23:40: Blood Gas Puncture Site UNKNOWN, Blood Gas Bicarbonate Standard 16.5, Venous Blood pH 7.253L, Venous Blood Partial Pressure CO2 38.7, Venous Blood Partial Pressure O2 60.3H, Venous Blood Total Carbon Dioxide 17.9L, Venous Blood HCO3 1 6.7L, Venous Blood Oxygen Saturation 89.4H, Venous Blood Base Excess -9.8L, Anion Gap 13, Glomerular Filtration Rate 43.0, Osmolality 329H, Calcium Level 8.8, Phosphorus Level 2.5, Magnesium Level 2.2, Iron Level 54L, Total Iron Binding Capacity 156L, Transferrin % Saturation 34.6, Ferritin 1016H 03/19/20 00:22: Bedside Glucose (Misc Panel) 230H 03/19/20 01:35: Bedside Glucose (Misc Panel) 215H 03/19/20 02:35: Bedside Glucose (Misc Panel) 207H 03/19/20 03:21: Anion Gap 10, Glomerular Filtration Rate 44.9, Osmolality 311H, Calcium Level 8.1L, Phosphorus Level 1.8#L 03/19/20 03:22: Blood Gas Bicarbonate Standard 22.2, Venous Blood pH 7.364, Venous Blood Partial Pressure CO2 40.5, Venous Blood Partial Pressure O2 58.2H, Venous Blood Total Carbon Dioxide 23.8L, Venous Blood HCO3 22.6L, Venous Blood Oxygen Saturation 91.5H, Venous Blood Base Excess -2.6L 03/19/20 03:57: Bedside Glucose (Misc Panel) 135H 03/19/20 05:12: Bedside Glucose (Misc Panel) 94 03/19/20 06:47: Bedside Glucose (Misc Panel) 137H 03/19/20 07:40: Nucleated Red Blood Cells % (auto) 0.0, Blood Gas Bicarbonate Standard 18.1, Venous Blood pH 7.334, Venous Blood Partial Pressure CO2 33.0L, Venous Blood Partial Pressure O2 139.2H, Venous Blood Total Carbon Dioxide 18.2L, Venous Blood HCO3 17.2L, Venous Blood Oxygen Saturation 98.8H, Venous Blood Base Excess -7.8L, Anion Gap 12, Glomerular Filtration Rate 56.9, Calcium Level 8.0L, Phosphorus Level 1.7L CBC/BMP Laboratory Tests 03/18/20 20:02 03/18/20 23:40 03/19/20 03:21 03/19/20 07:40 Microbiology Microbiology 03/18/20 Blood Culture, Received Pending 03/18/20 Blood Culture, Received Pending Home Medications Scheduled Amlodipine Besylate (Norvasc) 5 Mg Tablet, 5 MG PO DAILY, (Reported) Brimonidine Tartrate (Alphagan P) 100 Drop/5 Ml Soln, 1 DROP OU BID, (Reported) Calcium Carbonate/Vitamin D3 (Calcium 600-Vit D3 200 Tablet) 1 Tab Tab, 1 TAB PO BID, (Reported) Ergocalciferol (Vitamin D2) (Vitamin D2) 50,000 Units Cap, 50,000 UNITS PO Q2WK, (Reported) Esomeprazole Magnesium (Esomeprazole Magnesium) 40 Mg Cap, 40 MG PO DAILY, (Reported) Ezetimibe (Ezetimibe) 10 Mg Tab, 10 MG PO DAILY, (Reported) Ferrous Sulfate (Ferrous Sulfate) 325 Mg Tab, 325 MG PO TID, (Reported) Insulin Detemir (Levemir Flextouch) 100 Unit/Ml Inj, 45 UNITS SC DAILY, (Reported) Insulin Detemir (Levemir) 100 Unit/1 Ml Vial, 40 UNITS SC QHS, (Reported) Insulin Human Lispro (Humalog) 100 Unit/1 Ml Vial, 1 DOSE SC AC, (Reported) PER SLIDING SCALE Latanoprost (Xalatan) 0.005% 2.5ML Drops, 1 DROP OU QHS, (Reported) Lisinopril (Lisinopril) 20 Mg Tablet, 20 MG PO DAILY, (Reported) Magnesium Chloride (Mag64) 64 Mg Tabcr, 64 MG PO BID, (Reported) Metformin HCl (Metformin HCl) 1,000 Mg Tab, 1,000 MG PO BID, (Reported) Multivitamin with Iron (Tab-A-Bharath with Iron) 1 Tab Tab, 1 TAB PO DAILY, (Reported) Pioglitazone HCl (Pioglitazone HCl) 30 Mg Tab, 30 MG PO DAILY, (Reported) Scheduled PRN Acetaminophen (Tylenol Extra Strength) 500 Mg Tablet, 1,000 MG PO Q6H PRN for PAIN / FEVER, (Reported) Allergies Coded Allergies: Penicillins (Verified Allergy, Mild, rash, 10/14/18) SAMI BARAKAT MD Mar 19, 2020 08:56
--- NOTE | 2020-03-19 09:25 | IPNPDOC ---
Date Seen The patient was seen on 03/19/20. Progress Note S:C/O 4/10 discomfort in left LE. remains in DKA on insulin iv gtt. c/o thirst. no abd pain/m/v. O: PE VITALS SEE BELOW GENERAL APPEARANCE: disheveled. appears his stated age. no respiratory distress. HEENT: no JVD, thyromegaly, or cervical LAD, dry mm Heart: S1 S2 RRR LUNGS: AEBE CTAB no adventitious breath sounds. no distress or use of resp acc mm ABDOMEN: Soft nt nd +bs x 4 quadrants EXT: right BKA, left foot w necrotic black eschar on left lateral foot w necrotic ulcer 5cm/x5cm on dorsum, malodorous exposed tendons on toes at base of the ulcer. chronic edema and venous changes LABORATORY DATA:see below IMAGING: Xray left foot IMPRESSION: Significant subcutaneous emphysema consistent with underlying infectious process and ulceration. Osteomyelitis involving the 5th toe cannot be excluded. Chest xray IMPRESSION: Questionable left lower lobe infiltrate. MICROBIOLOGY: blood cx pending. ASSESSMENT: 74 yr old w a hx of IDDM2, polyneuropathy, R AKA, HTN, DLP and BERNADETTE c/o 1wk h/o trauma to left foot admitted for DKA and left foot dry gangrene/cellulitis. PROBLEM LIST: DKA -Patient's anion gap is closed, bicarbonate is 19. He may be given Levemir insulin, but will change to 25 units subcutaneous twice a day for better glycemic control. -Patient's insulin drip may be discontinued at noon. Repeat BMP in 4 hours to make sure that the mammogram remains closed and bicarbonate remains above 21. -Patient may have a consistent carbohydrate diet at noon. Fingersticks can be changed to every before meals and at bedtime at that time and insulin sliding scale per [facility] protocol. -Patient has baseline peripheral neuropathy and only complains of 4 out of 10 pain in the left lower extremity, but will give pain medications as needed. -Check A1c Traumatic injury to Left Foot at home. -Resulting in left foot and lower extremity cellulitis and possible osteomyelitis -Elevate the left lower extremity on 2 pillows while supine -Avoid full weightbearing on this foot Left foot osteomyelitis / left foot and lower leg cellulitis/, dry gangrene -Patient most likely has severe peripheral vascular disease In light of his long-standing type 2 diabetes and hypertensive disease -check arterial Dopplers and vascular surgical consult for revascularization prior to amputation as recommended by general surgery -Currently on broad-spectrum antibiotics with vancomycin for possible MRSA. Check MRSA screen -On IV Zosyn for possible Pseudomonas. -Blood cultures have been obtained -Monitor sedimentation rate, CRP, and pro-calcitonin periodically -Gen. surgery, Dr. Newton has been consulted for possible debridement and amputation once revascularization is completed -Vascular Surgery is currently not available, we'll need to consult on Monday -Since the patient has had this traumatic injury and has had this issue for over 2 weeks, Patient does not require emergent revascularization. Peripheral vascular disease -check arterial Dopplers and vascular surgical consult for revascularization prior to amputation as recommended by general surgery -Vascular Surgery is currently not available, we'll need to consult on Monday -Since the patient has had this traumatic injury and has had this issue for over 2 weeks, Patient does not require emergent revascularization. CKD3 -Probably at baseline creatinine. Avoid nephrotoxins. -Renally dose all medications -since the patient is on vancomycin, We will need to check daily metabolic panel and Vanco peak and trough to Avoid nephrotoxicity left lower lobe infiltrate -No complaints of cough or fever. Currently on broad-spectrum antibiotics, vancomycin, Zosyn, day #2 -If possible, obtain a sputum culture, urine Legionella, urine streptococcal antigen Chronic HTN -Resumed on home medications Hx of BERNADETTE -No acute indication for RBC transfusion -No signs or symptoms of acute GI bleed DLP -Chronic -Check lipid profile -Resume home medications Disposition: 5-7 days depending on vascular surgical revascularization and completion of 7 days of antibiotics. Patient may need surgical debridement during this hospital stay Patient may be transferred to medical surgical floor later today once off the insulin drip. VS, I&O, 24H, Pending Sale To [facility] Vital Signs/I&O Vital Signs Date Time Temp Pulse Resp B/P (MAP) Pulse Ox O2 Delivery O2 Flow Rate FiO2 03/19/20 06:14 97.7 03/19/20 04:30 85 134/66 (88) 98 03/19/20 02:15 18 Room Air I&O- Last 24 Hours up to 6 AM 03/19/20 06:00 Intake Total 2109 ml Balance 2109 ml Laboratory Data 24H LABS Laboratory Tests 2 03/18/20 19:52: Urine Color STRAW, Urine Appearance CLEAR, Urine pH 5.0, Urine Specific [place] 1.022, Urine Protein NEGATIVE, Urine Glucose (UA) 3+H, Urine Ketones 2+H, Urine Blood NEGATIVE, Urine Nitrite NEGATIVE, Urine Bilirubin NEGATIVE, Urine Urobilinogen 0.2, Urine Leukocyte Esterase NEGATIVE, Urine WBC (Auto) 0, Urine RBC (Auto) 1, Urine Hyaline Casts (Auto) 0, Urine Bacteria (Auto) NEGATIVE, Urine Squamous Epithelial Cells 0, Urine Mucus (Auto) SMALL, Urine Sperm (Auto) 03/18/20 19:56: Coronavirus (COVID-19)(PCR) NEGATIVE, Influenza Type A (RT-PCR) NEGATIVE, Influenza Type B (RT-PCR) NEGATIVE, Respiratory Syncytial Virus (PCR) NEGATIVE 03/18/20 20:02: Immature Granulocyte % (Auto) 1.1, Neutrophils (%) (Auto) 81.1H, Lymphocytes (%) (Auto) 11.6L, Monocytes (%) (Auto) 5.7H, Eosinophils (%) (Auto) 0.1, Basophils (%) (Auto) 0.4, Neutrophils # (Auto) 8.5, Lymphocytes # (Auto) 1.2L, Monocytes # (Auto) 0.6, Eosinophils # (Auto) 0.0, Basophils # (Auto) 0.0, Nucleated Red Blood Cells % (auto) 0.0, Erythrocyte Sedimentation Rate 93H, Prothrombin Time 13.8, Prothromb Time International Ratio 1.04, Activated Partial Thromboplast Time 32.5, Anion Gap 16, Glomerular Filtration Rate 39.7L, Estimated Mean Plasma Glucose 355H, Hemoglobin A1c > 14.0, Osmolality 339H, Lactic Acid Level 1.0, Calcium Level 8.6L, Total Bilirubin 0.4, Direct Bilirubin 0.1, Aspartate Amino Transf (AST/SGOT) 7, Alanine Aminotransferase (ALT/SGPT) 11L, Alkaline Phosphatase 103, Total Creatine Kinase 90, Creatine Kinase MB 6.3H, Creatine Kinase MB Relative Index 7.00H, Troponin I < 0.02, C-Reactive Protein, Quantitative 17.40H, Total Protein 6.8, Albumin 2.2L, Albumin/Globulin Ratio 0.5, Amylase Level 16L, Lipase 59L, B-Hydroxybutyrate > 46.00H 03/18/20 21:40: Blood Gas Bicarbonate Standard 14.3L, Arterial Blood pH 7.277L, Arterial Blood Partial Pressure CO2 27.4L, Arterial Blood Partial Pressure O2 119.3H, Arterial Blood Total CO2 13.3L, Arterial Blood HCO3 12.5L, Arterial Blood Base Excess - 12.9L, Arterial Blood Oxygen Saturation 98.4 03/18/20 22:34: Bedside Glucose (Misc Panel) 355H 03/18/20 23:08: Bedside Glucose (Misc Panel) 285H 03/18/20 23:40: Blood Gas Puncture Site UNKNOWN, Blood Gas Bicarbonate Standard 16.5, Venous Blood pH 7.253L, Venous Blood Partial Pressure CO2 38.7, Venous Blood Partial Pressure O2 60.3H, Venous Blood Total Carbon Dioxide 17.9L, Venous Blood HCO3 16.7L, Venous Blood Oxygen Saturation 89.4H, Venous Blood Base Excess -9.8L, Anion Gap 13, Glomerular Filtration Rate 43.0, Osmolality 329H, Calcium Level 8.8, Phosphorus Level 2.5, Magnesium Level 2.2, Iron Level 54L, Total Iron Binding Capacity 156L, Transferrin % Saturation 34.6, Ferritin 1016H 03/19/20 00:22: Bedside Glucose (Misc Panel) 230H 03/19/20 01:35: Bedside Glucose (Misc Panel) 215H 03/19/20 02:35: Bedside Glucose (Misc Panel) 207H 03/19/20 03:21: Anion Gap 10, Glomerular Filtration Rate 44.9, Osmolality 311H, Calcium Level 8.1L, Phosphorus Level 1.8#L 03/19/20 03:22: Blood Gas Bicarbonate Standard 22.2, Venous Blood pH 7.364, Venous Blood Partial Pressure CO2 40.5, Venous Blood Partial Pressure O2 58.2H, Venous Blood Total Carbon Dioxide 23.8L, Venous Blood HCO3 22.6L, Venous Blood Oxygen Saturation 91.5H, Venous Blood Base Excess -2.6L 03/19/20 03:57: Bedside Glucose (Misc Panel) 135H 03/19/20 05:12: Bedside Glucose (Misc Panel) 94 03/19/20 06:47: Bedside Glucose (Misc Panel) 137H CBC/BMP Laboratory Tests 03/18/20 20:02 03/18/20 23:40 03/19/20 03:21 Microbiology Microbiology 03/18/20 Blood Culture, Received Pending 03/18/20 Blood Culture, Received Pending GINETTE URBAN MD Mar 19, 2020 07:29
[2020-03-19 09:34] LABS: FOLATE 11.3 NG/ML (>5.4)
[2020-03-19] MEDS: NEUTRA-PHOS 1.5 GM PACKET PO SCH ×4 (10:19→21:05)
[2020-03-19] MEDS: BRIMONIDINE 0.1% OPHTH SOLN 5 ML OU SCH ×2 (10:19→21:04)
[2020-03-19] MEDS: LEVEMIR (INSULIN DETEMIR) 1 UNITS/0.01ML SC SCH ×2 (10:30→21:04)
[2020-03-19 10:46] LABS: VENOUS BASE EXCESS -2.1 (-2.0-2.0); VENOUS HCO3 22.6 MEQ/L (23.0-27.0); VENOUS O2 SATURATION 99.5 % (60.0-80.0); VENOUS PARTIAL PRESSURE CO2 38.6 mmHg (38.0-50.0); VENOUS PARTIAL PRESSURE O2 169.4 mmHg (30.0-50.0); VENOUS PH 7.386 UNITS (7.330-7.430); VENOUS STANDARD HCO3 22.7 MEQ/L; VENOUS TOTAL CO2 23.8 MEQ/L (24.0-28.0)
[2020-03-19] MEDS ORDERED: GLUCAGON INJ 1MG VIAL SC PRN (12:15)
[2020-03-19] MEDS ORDERED: GLUCOSE 4GM CHEW TABLET PO PRN (12:15)
[2020-03-19] MEDS ORDERED: DEXTROSE 50% 50 ML SYRINGE IV PRN (12:15)
[2020-03-19] MEDS ORDERED: MAG SULF 1GM/100ML (MAG RUN) 1 GM in IV 1 EA IV ONE (12:30)
[2020-03-19 12:48] LABS: CALCIUM LEVEL 8.4 MG/DL (8.8-10.2); CREATININE FOR GFR 1.38 MG/DL (0.70-1.30); GLOMERULAR FILTRATION RATE 53.6 (>42); MAGNESIUM LEVEL 1.9 MG/DL (1.8-2.4); PHOSPHORUS LEVEL 1.4 MG/DL (2.5-4.9)
[2020-03-19 13:45] VITALS: BP 126/74
[2020-03-19 14:51] LABS: VENOUS BASE EXCESS -2.9 (-2.0-2.0); VENOUS HCO3 22.7 MEQ/L (23.0-27.0); VENOUS O2 SATURATION 94.3 % (60.0-80.0); VENOUS PARTIAL PRESSURE CO2 42.5 mmHg (38.0-50.0); VENOUS PARTIAL PRESSURE O2 70.9 mmHg (30.0-50.0); VENOUS PH 7.345 UNITS (7.330-7.430)
[2020-03-19] MEDS: VANCOMYCIN HCL 1,000 MG, VIAL MATE ADAPTER 1 EACH in D5W 250 ML IV SCH (14:52)
[2020-03-19] MEDS: HumaLOG INSULIN (NovoLOG) PER UNIT SC SCH ×2 (17:40→21:03)
[2020-03-19] MEDS: LATANOPROST 0.005% OPHTH SOLN 2.5 ML OU SCH (21:05)
[2020-03-19 22:00] VITALS: BP 111/55
[2020-03-20] MEDS: cefTRIAXone SOD 2 GM in D5W MINI-BAG PLUS 50 ML IV SCH (02:08)
[2020-03-20 06:00] VITALS: BP 121/67
[2020-03-20] MEDS: HumaLOG INSULIN (NovoLOG) PER UNIT SC SCH ×4 (07:30→21:55)
--- NOTE | 2020-03-20 07:32 | ECGEPIP ---
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
[2020-03-20] MEDS: LEVEMIR (INSULIN DETEMIR) 1 UNITS/0.01ML SC SCH ×2 (08:09→21:22)
[2020-03-20 08:17] LABS: BASO % 0.3 % (0.0-1.0); EOS # 0.1 10^3/uL (0.0-0.5); EOS % 1.1 % (0.0-3.0); HEMATOCRIT 29.6 % (42.0-52.0); HEMOGLOBIN 9.1 g/dl (13.5-17.5); LYMPH # 2.1 10^3/uL (1.5-5.0); LYMPH % 17.2 % (24.0-44.0); MEAN CORPUSCULAR HEMOGLOBIN 27.6 pg (27.0-33.0); MEAN CORPUSCULAR HGB CONC 30.7 g/dl (32.0-36.5); MEAN CORPUSCULAR VOLUME 89.7 fl (80.0-96.0); MONO # 0.9 10^3/uL (0.0-0.8); MONO % 7.4 % (0.0-5.0); NEUTROPHILS # 8.8 10^3/uL (1.5-8.5); NEUTROPHILS % 73.3 % (36.0-66.0); PLATELET COUNT, AUTOMATED 336 10^3/uL (150-450); WHITE BLOOD COUNT 12.1 10^3/uL (4.0-10.0)
--- NOTE | 2020-03-20 08:41 | IPNPDOC ---
Date Seen The patient was seen on 03/20/20. Progress Note S: not feeling well, diaphoretic, and shaky, and was found to be hypoglycemic this am. 3/10 pain in left foot and still malodorous. no fever or chills. given orange juice. O: PE VITALS SEE BELOW GENERAL APPEARANCE: disheveled. HEENT: no JVD, thyromegaly, or cervical LAD, dry mm Heart: S1 S2 RRR LUNGS: AEBE CTAB no adventitious breath sounds. ABDOMEN: Soft nt nd +bs x 4 quadrants EXT: right BKA, left foot w necrotic black eschar on left lateral foot w necrotic ulcer 5cm/x5cm on dorsum, malodorous exposed tendons on toes at base of the ulcer. chronic edema and venous changes LABORATORY DATA:see below IMAGING: Xray left foot IMPRESSION: Significant subcutaneous emphysema consistent with underlying infectious process and ulceration. Osteomyelitis involving the 5th toe cannot be excluded. Chest xray IMPRESSION: Questionable left lower lobe infiltrate. MICROBIOLOGY: blood cx pending. ASSESSMENT: 74 yr old w a hx of IDDM2, polyneuropathy, R AKA, HTN, DLP and BERNADETTE c/o 1wk h/o trauma to left foot admitted for DKA and left foot dry gangrene/cellulitis. PROBLEM LIST: DKA , resolved -hypoglycemic today, on protocol -start on d5 x 1liter -continue fingersticks Traumatic injury to Left Foot at home. -on abx for gangrene and cellulitis. surgery to debride vs amputate. -Elevate the left lower extremity on 2 pillows while supine -Avoid full weightbearing on this foot Left foot osteomyelitis / left foot and lower leg cellulitis/, dry gangrene -on IV antibiotics. -vascular surgical consult for revascularization prior to amputation as recommended by general surgery -Vascular Surgery is currently not available, we'll need to consult on Monday -Since the patient has had this traumatic injury and has had this issue for over 2 weeks, Patient does not require emergent revascularization. Peripheral vascular disease -carterial Dopplers and vascular surgical consult for revascularization prior to amputation as recommended by general surgery -Vascular Surgery is currently not available, we'll need to consult on Monday -Since the patient has had this traumatic injury and has had this issue for over 2 weeks, Patient does not require emergent revascularization. CKD3 -Probably at baseline creatinine. Avoid nephrotoxins. -Renally dose all medications -since the patient is on vancomycin, We will need to check daily metabolic panel and Vanco peak and trough to Avoid nephrotoxicity left lower lobe infiltrate -No complaints of cough or fever. Currently on broad-spectrum antibiotics, vancomycin, Zosyn, day #3 Chronic HTN -Resumed on home medications Hx of BERNADETTE -No acute indication for RBC transfusion -No signs or symptoms of acute GI bleed DLP -Chronic -Check lipid profile -Resume home medications VS, I&O, 24H, Fishbone Vital Signs/I&O Vital Signs Date Time Temp Pulse Resp B/P (MAP) Pulse Ox O2 Delivery O2 Flow Rate FiO2 03/20/20 06:00 97.7 89 18 121/67 (85) 96 Room Air I&O- Last 24 Hours up to 6 AM 03/20/20 06:00 Intake Total 3942 ml Output Total 2325 ml Balance 1617 ml Laboratory Data 24H LABS Laboratory Tests 2 03/19/20 08:45: Bedside Glucose (Misc Panel) 190H 03/19/20 10:23: Bedside Glucose (Misc Panel) 178H 03/19/20 10:37: Anion Gap 6L, Glomerular Filtration Rate 53.6, Calcium Level 8.4L, Phosphorus Level 1.4L, Magnesium Level 1.9 03/19/20 10:39: Blood Gas Bicarbonate Standard 22.7, Venous Blood pH 7.386, Venous Blood Partial Pressure CO2 38.6, Venous Blood Partial Pressure O2 169.4H, Venous Blood Total Carbon Dioxide 23.8L, Venous Blood HCO3 22.6L, Venous Blood Oxygen Saturation 99.5H, Venous Blood Base Excess -2.1L 03/19/20 11:38: Bedside Glucose (Misc Panel) 142H 03/19/20 14:36: Blood Gas Bicarbonate Standard 22.0, Venous Blood pH 7.345, Venous Blood Partial Pressure CO2 42.5, Venous Blood Partial Pressure O2 70.9H, Venous Blood Total Carbon Dioxide 24.0, Venous Blood HCO3 22.7L, Venous Blood Oxygen Saturation 94.3H, Venous Blood Base Excess -2.9L 03/19/20 16:55: Bedside Glucose (Misc Panel) 299H 03/19/20 20:01: Bedside Glucose (Misc Panel) 257H 03/20/20 07:55: Bedside Glucose (Misc Panel) 52L 03/20/20 07:58: Immature Granulocyte % (Auto) 0.7, Neutrophils (%) (Auto) 73.3H, Lymphocytes (%) (Auto) 17.2L, Monocytes (%) (Auto) 7.4H, Eosinophils (%) (Auto) 1.1, Basophils (%) (Auto) 0.3, Neutrophils # (Auto) 8.8H, Lymphocytes # (Auto) 2.1, Monocytes # (Auto) 0.9H, Eosinophils # (Auto) 0.1, Basophils # (Auto) 0.0, Nucleated Red Blood Cells % (auto) 0.0 03/20/20 08:32: Bedside Glucose (Misc Panel) 102 CBC/BMP Laboratory Tests 03/19/20 10:37 03/20/20 07:58 Microbiology Microbiology 03/18/20 Blood Culture - Preliminary, Resulted No growth after 24 hours . All specim... 03/18/20 Blood Culture - Preliminary, Resulted No growth after 24 hours . All specim... GINETTE URBAN MD Mar 20, 2020 08:41
[2020-03-20 08:44] LABS: BLOOD UREA NITROGEN 14 MG/DL (7-18); CALCIUM LEVEL 8.1 MG/DL (8.8-10.2); CARBON DIOXIDE LEVEL 25 MEQ/L (21-32); CHLORIDE LEVEL 107 MEQ/L (98-107); CREATININE FOR GFR 1.03 MG/DL (0.70-1.30); GLOMERULAR FILTRATION RATE > 60.0 (>42); GLUCOSE, FASTING 52 MG/DL (70-100); POTASSIUM SERUM 4.2 MEQ/L (3.5-5.1); SODIUM LEVEL 141 MEQ/L (136-145)
[2020-03-20] MEDS ORDERED: D5W/0.45% SODIUM CHLORIDE 1,000 ML IV SCH (09:00)
[2020-03-20] MEDS: VANCOMYCIN HCL 1,000 MG, VIAL MATE ADAPTER 1 EACH in D5W 250 ML IV SCH (10:02)
[2020-03-20] MEDS: BRIMONIDINE 0.1% OPHTH SOLN 5 ML OU SCH ×2 (10:05→21:23)
[2020-03-20] MEDS: amLODIPine 5 MG TAB PO SCH (10:05)
[2020-03-20] MEDS: NEUTRA-PHOS 1.5 GM PACKET PO SCH ×4 (10:07→21:23)
[2020-03-20] MEDS: MEROPENEM INJ 1 GM in IV 1 EA IV SCH ×2 (11:47→17:52)
[2020-03-20 14:00] VITALS: BP 119/68
[2020-03-20] MEDS ORDERED: MOM 30ML SUSPENSION UDC PO PRN (17:45)
[2020-03-20] MEDS ORDERED: MOM 30ML SUSPENSION UDC PO ONE (17:45)
[2020-03-20] MEDS: SENOKOT S TAB PO SCH (21:19)
[2020-03-20] MEDS: MIRALAX *UNIT DOSE* 17GM PACKET PO SCH (21:19)
[2020-03-20] MEDS: LATANOPROST 0.005% OPHTH SOLN 2.5 ML OU SCH (21:23)
[2020-03-20 22:00] VITALS: BP 120/76
[2020-03-21] MEDS: MEROPENEM INJ 1 GM in IV 1 EA IV SCH ×3 (02:09→17:20)
[2020-03-21] MEDS: VANCOMYCIN HCL 1,000 MG, VIAL MATE ADAPTER 1 EACH in D5W 250 ML IV SCH ×2 (03:05→21:07)
[2020-03-21 06:00] VITALS: BP 124/69
[2020-03-21 06:57] LABS: BASO % 0.3 % (0.0-1.0); EOS # 0.1 10^3/uL (0.0-0.5); EOS % 1.4 % (0.0-3.0); HEMOGLOBIN 8.9 g/dl (13.5-17.5); LYMPH # 1.4 10^3/uL (1.5-5.0); LYMPH % 14.7 % (24.0-44.0); MEAN CORPUSCULAR VOLUME 87.9 fl (80.0-96.0); MONO # 0.7 10^3/uL (0.0-0.8); MONO % 7.2 % (0.0-5.0); NEUTROPHILS # 7.2 10^3/uL (1.5-8.5); NEUTROPHILS % 75.7 % (36.0-66.0); PLATELET COUNT, AUTOMATED 252 10^3/uL (150-450); RED BLOOD COUNT 3.07 10^6/uL (4.30-6.10); WHITE BLOOD COUNT 9.5 10^3/uL (4.0-10.0)
[2020-03-21 07:24] LABS: BLOOD UREA NITROGEN 12 MG/DL (7-18); CALCIUM LEVEL 7.4 MG/DL (8.8-10.2); CARBON DIOXIDE LEVEL 27 MEQ/L (21-32); CHLORIDE LEVEL 104 MEQ/L (98-107); CREATININE FOR GFR 0.88 MG/DL (0.70-1.30); GLOMERULAR FILTRATION RATE > 60.0 (>42); GLUCOSE, FASTING 166 MG/DL (70-100); SODIUM LEVEL 138 MEQ/L (136-145)
[2020-03-21] MEDS: HumaLOG INSULIN (NovoLOG) PER UNIT SC SCH ×4 (07:41→21:00)
[2020-03-21] MEDS: NEUTRA-PHOS 1.5 GM PACKET PO SCH ×4 (07:41→21:06)
[2020-03-21] MEDS: SENOKOT S TAB PO SCH ×2 (07:42→21:00)
[2020-03-21] MEDS: MIRALAX *UNIT DOSE* 17GM PACKET PO SCH ×2 (07:42→21:00)
[2020-03-21] MEDS: amLODIPine 5 MG TAB PO SCH (07:42)
[2020-03-21] MEDS: LEVEMIR (INSULIN DETEMIR) 1 UNITS/0.01ML SC SCH ×2 (07:43→21:07)
[2020-03-21] MEDS: BRIMONIDINE 0.1% OPHTH SOLN 5 ML OU SCH ×2 (07:43→21:08)
--- NOTE | 2020-03-21 08:57 | IPNPDOC ---
Date Seen The patient was seen on 03/21/20. Progress Note S: Patient had a low-grade temperature of 100.2 overnight despite intravenous vancomycin and was given ceftriaxone early yesterday morning. , However, for better anaerobic and gram-negative coverage. Ceftriaxone has been discontinued and patient was started on intravenous meropenem with normalization of the white count. He denies any pain. Says he's feeling okay this morning. Due to hypoglycemia yesterday, patient was given a 1 L D5 half normal saline, which stabilized in the late afternoon. . He denies any diaphoresis, chest pain, pressure, tightness, lightheadedness, nausea, vomiting, abdominal pain, and says that the left lower extremity pain is 3 out of 10 on a pain scale and tolerable. Patient complained of constipation yesterday, was given as needed bowel regimen O: PE VITALS SEE BELOW GENERAL APPEARANCE: disheveled., No respiratory distress. Awake, alert, oriented 3, answering questions appropriately HEENT: no JVD, thyromegaly, or cervical LAD, moist mm , No stridor, no carotid bruit Heart: S1 S2 RRR LUNGS: AEBE CTAB no adventitious breath sounds. ABDOMEN: Soft nt nd +bs x 4 quadrants EXT: right BKA, left foot w necrotic black eschar on left lateral foot w necrotic ulcer 5cm/x5cm on dorsum, malodorous exposed tendons on toes at base of the ulcer. chronic edema and venous changes , worsening erythema Involving The left lower extremity increasing along the langley and medial leg. LABORATORY DATA:see below IMAGING: Xray left foot IMPRESSION: Significant subcutaneous emphysema consistent with underlying infectious process and ulceration. Osteomyelitis involving the 5th toe cannot be excluded. Chest xray IMPRESSION: Questionable left lower lobe infiltrate. MICROBIOLOGY: blood cx pending. ASSESSMENT: 74 yr old w a hx of IDDM2, polyneuropathy, R AKA, HTN, DLP and BERNADETTE c/o 1wk h/o trauma to left foot admitted for DKA and left foot dry gangrene/cellulitis. PROBLEM LIST: DKA , resolved -On consistent carbohydrate diet -On insulin sliding scale with SMC coverage per protocol -On fingersticks every before meals at bedtime -On hypoglycemic protocol -Had an episode of hypoglycemia on 03/20/2020 and was given D5. Traumatic injury to Left Foot at home. -Was initially an IV vancomycin, ceftriaxone for gangrene and cellulitis. -Due to persistent white count rations ceftriaxone was discontinued on 03/20/2020. -IV meropenem was started on 03/20/2020 for broader gram-negative and anaerobic coverage Currently on day #2 of meropenem -Day #3 of vancomycin managed by pharmacy -surgery to debride vs amputate, but leaning more towards amputation -Elevate the left lower extremity on 2 pillows while supine -Avoid full weightbearing on this foot Left foot osteomyelitis / left foot and lower leg cellulitis/, dry gangrene -on IV antibiotics. -vascular surgical consult for revascularization prior to amputation as recommended by general surgery -Vascular Surgery is currently not available, we'll need to consult on Monday -Since the patient has had this traumatic injury and has had this issue for over 2 weeks, Patient does not require emergent revascularization. Peripheral vascular disease -carterial Dopplers and vascular surgical consult for revascularization prior to amputation as recommended by general surgery -Vascular Surgery is currently not available, we'll need to consult on Monday -Since the patient has had this traumatic injury and has had this issue for over 2 weeks, Patient does not require emergent revascularization. CKD3 -Probably at baseline creatinine. Avoid nephrotoxins. -Renally dose all medications -since the patient is on vancomycin, We will need to check daily metabolic panel and Vanco peak and trough to Avoid nephrotoxicity left lower lobe infiltrate -No complaints of cough or fever. Currently on broad-spectrum antibiotics, vancomycin day #3 -s/p 2 days of ceftriaxone -Day #2 Meropenem Chronic HTN -Resumed on home medications Hx of BERNADETTE -No acute indication for RBC transfusion -No signs or symptoms of acute GI bleed DLP -Chronic -Resume home medications Disposition 3-4 days, pending amputation and vascular surgical evaluation VS, I&O, 24H, Fishbone Vital Signs/I&O Vital Signs Date Time Temp Pulse Resp B/P (MAP) Pulse Ox O2 Delivery O2 Flow Rate FiO2 03/21/20 07:42 94 124/69 03/21/20 06:54 100.1 03/21/20 06:00 18 95 Room Air I&O- Last 24 Hours up to 6 AM 03/21/20 06:00 Intake Total 3650 ml Output Total 1975 ml Balance 1675 ml Laboratory Data 24H LABS Laboratory Tests 2 03/20/20 12:06: Methicillin-Resist S.aureus DNA PCR NOT DETECTED 03/20/20 12:26: Bedside Glucose (Misc Panel) 393H 03/20/20 16:59: Bedside Glucose (Misc Panel) 243H 03/20/20 19:48: Bedside Glucose (Misc Panel) 372H 03/20/20 21:40: Bedside Glucose (Misc Panel) 383H 03/21/20 06:10: Bedside Glucose (Misc Panel) 164H 03/21/20 06:40: Immature Granulocyte % (Auto) 0.7, Neutrophils (%) (Auto) 75.7H, Lymphocytes (%) (Auto) 14.7L, Monocytes (%) (Auto) 7.2H, Eosinophils (%) (Auto) 1.4, Basophils (%) (Auto) 0.3, Neutrophils # (Auto) 7.2, Lymphocytes # (Auto) 1.4L, Monocytes # (Auto) 0.7, Eosinophils # (Auto) 0.1, Basophils # (Auto) 0.0, Nucleated Red Blood Cells % (auto) 0.0, Anion Gap 7L, Glomerular Filtration Rate > 60.0, Calcium Level 7.4L CBC/BMP Laboratory Tests 03/21/20 06:40 Microbiology Microbiology 03/20/20 Gram Stain - Final, Resulted 03/20/20 Wound Culture - Preliminary, Resulted Streptococcus Group G 03/18/20 Blood Culture - Preliminary, Resulted No Growth after 48 hours. All Specime... 03/18/20 Blood Culture - Preliminary, Resulted No Growth after 48 hours. All Specime... GINETTE URBAN MD Mar 21, 2020 08:57
--- NOTE | 2020-03-21 09:38 | IPNPDOC ---
Text Note Date of Service The patient was seen on 03/21/20. NOTE No acute events overnight. I was checking in on Mr. Knott due to his elevated wbc the last couple days, and his low grade fevers. He denies any changes to his left foot and lower leg. The pain is minimal, and the erythema has not spread any. He told me that he has no problems with his vasculature that he is aware of. Denies problems with VT, stroke, or PVD in the past. He lost the right leg about 18 years ago due to his diabetes, not ischemia. He is looking forward to seeing vascular early next week to see if they can do anything for him. VSSAF NAD ext - rt LE BKA, LT foot gangrene with some erythema up to the knee. No fluctuance or drainage. labs - below wbc improved A) 74y/o male with LLE cellulitis and gangrene P) recommend to continue with vascular consult. He will likely need some for of amputation prior to discharge. I will continue to monitor him for sepsis and be available for a guillotine amputation if needed. However, if this infection subsides, then vascular can evaluate him and likely plan on a bka once his infection has subsided. Will follow as needed. Sudarshan Ramsey DO VS,Fishbone, I+O VS, Fishbone, I+O Laboratory Tests 03/21/20 06:40 Vital Signs Date Time Temp Pulse Resp B/P (MAP) Pulse Ox O2 Delivery O2 Flow Rate FiO2 03/21/20 07:42 94 124/69 03/21/20 06:54 100.1 03/21/20 06:00 18 95 Room Air I&O- Last 24 Hours up to 6 AM 03/21/20 06:00 Intake Total 3650 ml Output Total 1975 ml Balance 1675 ml MAGALY RAMSEY DO Mar 21, 2020 09:38
[2020-03-21 14:00] VITALS: BP 128/63
[2020-03-21] MEDS: LATANOPROST 0.005% OPHTH SOLN 2.5 ML OU SCH (21:07)
[2020-03-21 22:00] VITALS: BP 126/67
[2020-03-22] MEDS: MEROPENEM INJ 1 GM in IV 1 EA IV SCH ×3 (02:16→17:50)
[2020-03-22 06:00] VITALS: BP 132/69
[2020-03-22 06:30] LABS: BASO % 0.5 % (0.0-1.0); EOS # 0.2 10^3/uL (0.0-0.5); EOS % 1.7 % (0.0-3.0); HEMATOCRIT 26.9 % (42.0-52.0); HEMOGLOBIN 8.5 g/dl (13.5-17.5); LYMPH # 1.1 10^3/uL (1.5-5.0); LYMPH % 12.7 % (24.0-44.0); MEAN CORPUSCULAR HEMOGLOBIN 28.4 pg (27.0-33.0); MEAN CORPUSCULAR HGB CONC 31.6 g/dl (32.0-36.5); MONO # 0.8 10^3/uL (0.0-0.8); MONO % 8.6 % (0.0-5.0); NEUTROPHILS # 6.7 10^3/uL (1.5-8.5); NEUTROPHILS % 75.8 % (36.0-66.0); PLATELET COUNT, AUTOMATED 234 10^3/uL (150-450); RED BLOOD COUNT 2.99 10^6/uL (4.30-6.10); WHITE BLOOD COUNT 8.8 10^3/uL (4.0-10.0)
[2020-03-22 06:47] LABS: BLOOD UREA NITROGEN 13 MG/DL (7-18); CALCIUM LEVEL 7.3 MG/DL (8.8-10.2); CARBON DIOXIDE LEVEL 28 MEQ/L (21-32); CHLORIDE LEVEL 102 MEQ/L (98-107); CREATININE FOR GFR 0.99 MG/DL (0.70-1.30); GLOMERULAR FILTRATION RATE > 60.0 (>42); GLUCOSE, FASTING 185 MG/DL (70-100); POTASSIUM SERUM 4.1 MEQ/L (3.5-5.1); SODIUM LEVEL 137 MEQ/L (136-145)
[2020-03-22] MEDS: amLODIPine 5 MG TAB PO SCH (08:50)
[2020-03-22] MEDS: NEUTRA-PHOS 1.5 GM PACKET PO SCH ×4 (08:50→21:18)
[2020-03-22] MEDS: LEVEMIR (INSULIN DETEMIR) 1 UNITS/0.01ML SC SCH ×2 (08:50→21:17)
[2020-03-22] MEDS: HumaLOG INSULIN (NovoLOG) PER UNIT SC SCH ×4 (08:51→21:00)
[2020-03-22] MEDS: BRIMONIDINE 0.1% OPHTH SOLN 5 ML OU SCH ×2 (08:53→21:19)
[2020-03-22] MEDS: MIRALAX *UNIT DOSE* 17GM PACKET PO SCH ×2 (09:00→21:00)
[2020-03-22] MEDS: SENOKOT S TAB PO SCH ×2 (09:00→21:00)
--- NOTE | 2020-03-22 09:26 | IPNPDOC ---
Date Seen The patient was seen on 03/22/20. Progress Note S: Continues to have malodorous discharge in the left foot and leg No fever, chills overnight. Glucose stable without hypoglycemia Denies shortness of breath, chest pain, pressure, tightness Dizziness, lightheadedness, diaphoresis, nausea, vomiting, diarrhea Complain of constipation and bowel regimen O: PE VITALS SEE BELOW GENERAL APPEARANCE: disheveled., No respiratory distress. Speaks full sentences without conversational dyspnea Awake, alert, oriented 3, answering questions appropriately HEENT: no JVD, thyromegaly, or cervical LAD, moist mm No stridor, no carotid bruit , no pharyngeal erythema Poor dentition Heart: S1 S2 RRR , no murmurs LUNGS: AEBE CTAB no adventitious breath sounds. No scoliosis. No use of respiratory accessory muscles ABDOMEN: Soft nt nd +bs x 4 quadrants. No fluid wave No abdominal bruit EXT: Malodorous, purulent, thick discharge noted on the left foot right BKA, left foot w necrotic black eschar on left lateral foot w necrotic ulcer 5cm/x5cm on dorsum, malodorous exposed tendons on toes at base of the ulcer. chronic edema and venous changes , worsening erythema Involving The left lower extremity increasing along the langley and medial leg. LABORATORY DATA:see below IMAGING: Xray left foot IMPRESSION: Significant subcutaneous emphysema consistent with underlying infectious process and ulceration. Osteomyelitis involving the 5th toe cannot be excluded. Chest xray IMPRESSION: Questionable left lower lobe infiltrate. MICROBIOLOGY: blood cx pending. ASSESSMENT: 74 yr old w a hx of IDDM2, polyneuropathy, R AKA, HTN, DLP and BERNADETTE c/o 1wk h/o trauma to left foot admitted for DKA and left foot dry gangrene/cellulitis. PROBLEM LIST: DKA , resolved -On consistent carbohydrate diet -On insulin sliding scale with SMC coverage per protocol -On fingersticks every before meals at bedtime -On hypoglycemic protocol -Had an episode of hypoglycemia on 03/20/2020 and was given D5. -No recurrent episodes of hypo-or hyperglycemia since 03/20/2020 Traumatic injury to Left Foot at home. -Was initially an IV vancomycin, ceftriaxone for gangrene and cellulitis. -Due to persistent white count and low-grade fever, ceftriaxone was discontinued on 03/20/2020. -IV meropenem was started on 03/20/2020 for broader gram-negative and anaerobic coverage Currently on day #3 of meropenem -Day #4 of vancomycin managed by pharmacy -surgery to debride vs amputate, but leaning more towards amputation -Elevate the left lower extremity on 2 pillows while supine -Avoid full weightbearing on this foot -Vascular surgical consult on Monday Left foot osteomyelitis / left foot and lower leg cellulitis/, dry gangrene -on IV vancomycin, day #4, IV meropenem, day #3, status post ceftriaxone -vascular surgical consult for revascularization prior to amputation as recommended by general surgery -Vascular Surgery is currently not available, we'll need to consult on Monday -Since the patient has had this traumatic injury and has had this issue for over 2 weeks, Patient does not require vascular evaluation or emergent inpatient transfer to [facility] For vascular services. -Arterial Dopplers. Peripheral vascular disease -arterial Dopplers and vascular surgical consult for revascularization prior to amputation as recommended by general surgery -Vascular Surgery is currently not available, we'll need to consult on Monday -Since the patient has had this traumatic injury and has had this issue for over 2 weeks, Patient does not require vascular evaluation or emergent inpatient transfer to [place] For vascular services. CKD3 -Probably at baseline creatinine. Avoid nephrotoxins. -Renally dose all medications -since the patient is on vancomycin, We will need to check daily metabolic panel and Vanco peak and trough to Avoid nephrotoxicity left lower lobe infiltrate -No complaints of cough or fever. Currently on broad-spectrum antibiotics, vancomycin day #4 -s/p 2 days of ceftriaxone -Day #3 Meropenem Chronic HTN -Resumed on home medications Hx of BERNADETTE -No acute indication for RBC transfusion -No signs or symptoms of acute GI bleed DLP -Chronic -Resume home medications Disposition 3-4 days, pending amputation and vascular surgical evaluation VS, I&O, 24H, Fishbone Vital Signs/I&O Vital Signs Date Time Temp Pulse Resp B/P (MAP) Pulse Ox O2 Delivery O2 Flow Rate FiO2 03/22/20 08:50 88 134/66 03/22/20 06:00 98.0 18 96 Room Air I&O- Last 24 Hours up to 6 AM 03/22/20 06:00 Intake Total 2330 ml Output Total 1325 ml Balance 1005 ml Laboratory Data 24H LABS Laboratory Tests 2 03/21/20 11:25: Bedside Glucose (Misc Panel) 253H 03/21/20 16:57: Bedside Glucose (Misc Panel) 117H 03/21/20 19:48: Bedside Glucose (Misc Panel) 211H 03/22/20 05:41: Anion Gap 7L, Glomerular Filtration Rate > 60.0, Calcium Level 7.3L 03/22/20 05:42: Immature Granulocyte % (Auto) 0.7, Neutrophils (%) (Auto) 75.8H, Lymphocytes (%) (Auto) 12.7L, Monocytes (%) (Auto) 8.6H, Eosinophils (%) (Auto) 1.7, Basophils (%) (Auto) 0.5, Neutrophils # (Auto) 6.7, Lymphocytes # (Auto) 1.1L, Monocytes # (Auto) 0.8, Eosinophils # (Auto) 0.2, Basophils # (Auto) 0.0, Nucleated Red Blood Cells % (auto) 0.0 CBC/BMP Laboratory Tests 03/22/20 05:41 03/22/20 05:42 Microbiology Microbiology 03/20/20 Gram Stain - Final, Complete 03/20/20 Wound Culture - Final, Complete Streptococcus Group G 03/18/20 Blood Culture - Preliminary, Resulted No Growth after 72 hours. All specime... 03/18/20 Blood Culture - Preliminary, Resulted No Growth after 72 hours. All specime... GINETTE URBAN MD Mar 22, 2020 09:26
[2020-03-22 14:00] VITALS: BP 132/65
[2020-03-22] MEDS: LATANOPROST 0.005% OPHTH SOLN 2.5 ML OU SCH (21:19)
[2020-03-22 22:00] VITALS: BP 129/64
[2020-03-23] MEDS: MEROPENEM INJ 1 GM in IV 1 EA IV SCH ×3 (02:08→18:37)
[2020-03-23 06:00] VITALS: BP 92/64
[2020-03-23 06:02] LABS: BASO % 0.4 % (0.0-1.0); EOS # 0.2 10^3/uL (0.0-0.5); EOS % 1.7 % (0.0-3.0); HEMATOCRIT 27.4 % (42.0-52.0); HEMOGLOBIN 8.7 g/dl (13.5-17.5); LYMPH # 1.6 10^3/uL (1.5-5.0); LYMPH % 17.2 % (24.0-44.0); MEAN CORPUSCULAR HEMOGLOBIN 28.8 pg (27.0-33.0); MEAN CORPUSCULAR HGB CONC 31.8 g/dl (32.0-36.5); MEAN CORPUSCULAR VOLUME 90.7 fl (80.0-96.0); MONO % 10.2 % (0.0-5.0); NEUTROPHILS # 6.6 10^3/uL (1.5-8.5); NEUTROPHILS % 69.8 % (36.0-66.0); PLATELET COUNT, AUTOMATED 236 10^3/uL (150-450); RED BLOOD COUNT 3.02 10^6/uL (4.30-6.10); WHITE BLOOD COUNT 9.5 10^3/uL (4.0-10.0)
[2020-03-23 06:22] LABS: BLOOD UREA NITROGEN 13 MG/DL (7-18); C REACTIVE PROTEIN QUANTITATIV 9.43 MG/DL (0.00-0.30); CALCIUM LEVEL 7.4 MG/DL (8.8-10.2); CARBON DIOXIDE LEVEL 28 MEQ/L (21-32); CHLORIDE LEVEL 101 MEQ/L (98-107); CREATININE FOR GFR 1.09 MG/DL (0.70-1.30); GLOMERULAR FILTRATION RATE > 60.0 (>42); GLUCOSE, FASTING 89 MG/DL (70-100); POTASSIUM SERUM 4.3 MEQ/L (3.5-5.1); SODIUM LEVEL 136 MEQ/L (136-145)
--- NOTE | 2020-03-23 08:10 | IPNPDOC ---
Date Seen The patient was seen on 03/23/20. Progress Note S: irritable this morning. no c/o pain, fever,chills. no pain. had constipation, and received bowel regimen no n/v/abd pain. O: PE VITALS SEE BELOW GENERAL APPEARANCE: irritable No respiratory distress. Speaks full sentences without conversational dyspnea Awake, alert, oriented 3, answering questions appropriately HEENT: EOMI no JVD, thyromegaly, or cervical LAD, moist mm No stridor, no carotid bruit , no pharyngeal erythema Poor dentition Heart: S1 S2 RRR , no murmurs/rubs/gallops LUNGS: AEBE CTAB no adventitious breath sounds. No scoliosis. No use of respiratory accessory muscles no conversational dyspnea or abdominal retractions ABDOMEN: Soft nt nd +bs x 4 quadrants. No fluid wave No abdominal bruit no HSM EXT: Malodorous dry gangrene of the left foot right BKA, left foot w necrotic black eschar on left lateral foot w necrotic ulcer 5cm/x5cm on dorsum, malodorous exposed tendons on toes at base of the ulcer. chronic edema and venous changes , unchanged erythema along the left leg all within purple surgical margins without worsening. LABORATORY DATA:see below IMAGING: Xray left foot IMPRESSION: Significant subcutaneous emphysema consistent with underlying infectious process and ulceration. Osteomyelitis involving the 5th toe cannot be excluded. Chest xray IMPRESSION: Questionable left lower lobe infiltrate. MICROBIOLOGY: blood cx pending. ASSESSMENT: 74 yr old w a hx of IDDM2, polyneuropathy, R AKA, HTN, DLP and BERNADETTE c/o 1wk h/o trauma to left foot admitted for DKA and left foot dry gangrene/cellulitis. PROBLEM LIST: DKA , resolved -On consistent carbohydrate diet -On insulin sliding scale with SMC coverage per protocol -On fingersticks every before meals at bedtime -On hypoglycemic protocol -Had an episode of hypoglycemia on 03/20/2020 and was given D5. -decreased levemir insulin from 30 units daily to 20 units qhs due to glucose 79 this AM and poor oral intake. Traumatic injury to Left Foot at home. -Was initially an IV vancomycin, ceftriaxone for left foot gangrene and cellulitis. -Due to persistent white count and low-grade fever, ceftriaxone was discontinued on 03/20/2020. -IV meropenem was started on 03/20/2020 for broader gram-negative and anaerobic coverage Currently on day #4 of meropenem -s/p 4 days of iv vancomycin, discontinued 03/22/20. -surgery to debride vs amputate, but leaning more towards amputation -Elevate the left lower extremity on 2 pillows while supine -Avoid full weightbearing on this foot -Vascular surgical consulted for revascularization. -arterial dopplers ordered, but not completed. Left foot osteomyelitis / left foot and lower leg cellulitis/, dry gangrene -completed 4days IV vanco - IV meropenem, day #4, status post ceftriaxone -vascular surgical consult for revascularization prior to amputation as recommended by general surgery -Arterial Dopplers ordered Peripheral vascular disease -arterial Dopplers and vascular surgical consult for revascularization prior to amputation as recommended by general surgery CKD3 -Probably at baseline creatinine. Avoid nephrotoxins. -Renally dose all medications left lower lobe infiltrate -No complaints of cough or fever. Currently on broad-spectrum antibiotics, vancomycin day #4 -s/p 2 days of ceftriaxone -Day #4 Meropenem Chronic HTN -Resumed on home medications Hx of BERNADETTE -No acute indication for RBC transfusion -No signs or symptoms of acute GI bleed DLP -Chronic -Resume home medications Disposition :pending amputation and vascular surgical evaluation VS, I&O, 24H, Fishbone Vital Signs/I&O Vital Signs Date Time Temp Pulse Resp B/P (MAP) Pulse Ox O2 Delivery O2 Flow Rate FiO2 03/23/20 06:00 97.3 92 20 92/64 (73) 93 Room Air I&O- Last 24 Hours up to 6 AM 03/23/20 06:00 Intake Total 2190 ml Output Total 1800 ml Balance 390 ml Laboratory Data 24H LABS Laboratory Tests 2 03/22/20 11:52: Bedside Glucose (Misc Panel) 169H 03/22/20 17:04: Bedside Glucose (Misc Panel) 204H 03/22/20 20:53: Bedside Glucose (Misc Panel) 170H 03/23/20 05:26: Immature Granulocyte % (Auto) 0.7, Neutrophils (%) (Auto) 69.8H, Lymphocytes (%) (Auto) 17.2L, Monocytes (%) (Auto) 10.2H, Eosinophils (%) (Auto) 1.7, Basophils (%) (Auto) 0.4, Neutrophils # (Auto) 6.6, Lymphocytes # (Auto) 1.6, Monocytes # (Auto) 1.0H, Eosinophils # (Auto) 0.2, Basophils # (Auto) 0.0, Nucleated Red Blood Cells % (auto) 0.2H, Anion Gap 7L, Glomerular Filtration Rate > 60.0, Calcium Level 7.4L, C-Reactive Protein, Quantitative 9.43H 03/23/20 05:41: Bedside Glucose (Misc Panel) 79L CBC/BMP Laboratory Tests 03/23/20 05:26 Microbiology Microbiology 03/20/20 Gram Stain - Final, Complete 03/20/20 Wound Culture - Final, Complete Streptococcus Group G 03/18/20 Blood Culture - Preliminary, Resulted No Growth after 72 hours. All specime... 03/18/20 Blood Culture - Preliminary, Resulted No Growth after 72 hours. All specime... GINETTE URBAN MD Mar 23, 2020 08:10
[2020-03-23] MEDS: MIRALAX *UNIT DOSE* 17GM PACKET PO SCH ×2 (09:00→21:00)
[2020-03-23] MEDS: SENOKOT S TAB PO SCH ×2 (09:00→21:33)
[2020-03-23] MEDS: HumaLOG INSULIN (NovoLOG) PER UNIT SC SCH ×4 (09:01→21:32)
[2020-03-23] MEDS: NEUTRA-PHOS 1.5 GM PACKET PO SCH ×4 (10:16→21:31)
[2020-03-23] MEDS: BRIMONIDINE 0.1% OPHTH SOLN 5 ML OU SCH ×2 (10:17→21:34)
[2020-03-23] MEDS: amLODIPine 5 MG TAB PO SCH (10:17)
--- NOTE | 2020-03-23 13:25 | CR.PDOC ---
General Date of Consultation: Mar 23, [address] Mcmullen HISTORY OF PRESENT ILLNESS: The patient is a 74-year-old male admitted to [facility] 03/18/20 with, to the left foot after dropping a heavy box on top of his foot. Found to have left foot osteomyelitis / left foot and lower leg cellulitis/, dry gangrene. Patient with history of right AKA. Vascular surgery is consulted for further recommendations. PAST MEDICAL HISTORY/Surgical History: IDDM2 w polyneuropathy Chronic HTN BERNADETTE DLP Appendectomy Right AKA / right lower extremity prosthesis FAMILY HISTORY: Hypertension SOCIAL HISTORY: Nonsmoker REVIEW OF SYSTEMS: As noted in HPI otherwise 11 point review of systems unremarkable. PHYSICAL EXAMINATION: VITAL SIGNS: Please see below. GENERAL APPEARANCE: A/O HEENT: MMM RESPIRATORY: no wheezing CARDIOVASCULAR: RRR ABDOMEN: soft, NT EXTREMITIES: Left foot/5th toe with black eschar, ulcer on dorsum of foot 4-5cm diameter, erythema extending to prox pretibial area but not beyond the area of skin marker demarcation. ASSESSMENT/PLAN: 1. Left foot trauma/left foot osteomyelitis / left foot and lower leg cellulitis/, dry gangrene. IV antibiotics as per hospitalist service. Continue with wound care. Arterial ultrasound has been requested and is pending at this time. Further recommendations to follow after review as per Dr. Mcmullen. 2. History of right AKA. Patient uses prosthetic. 3. CKD3 Initially on admission serum creatinine was 1.79 with GFR 39. Renal function has improved and this morning GFR is noted to be greater than 60 with serum creatinine 1.09. Vital Signs/I&O Vital Signs Date Time Temp Pulse Resp B/P (MAP) Pulse Ox O2 Delivery O2 Flow Rate FiO2 03/23/20 06:00 97.3 92 20 92/64 (73) 93 Room Air I&O- Last 24 Hours up to 6 AM 03/23/20 05:59 Intake Total 2190 ml Output Total 1800 ml Balance 390 ml Laboratory Data Labs 24H Laboratory Tests 2 03/22/20 11:52: Bedside Glucose (Misc Panel) 169H 03/22/20 17:04: Bedside Glucose (Misc Panel) 204H 03/22/20 20:53: Bedside Glucose (Misc Panel) 170H 03/23/20 05:26: Immature Granulocyte % (Auto) 0.7, Neutrophils (%) (Auto) 69.8H, Lymphocytes (%) (Auto) 17.2L, Monocytes (%) (Auto) 10.2H, Eosinophils (%) (Auto) 1.7, Basophils (%) (Auto) 0.4, Neutrophils # (Auto) 6.6, Lymphocytes # (Auto) 1.6, Monocytes # (Auto) 1.0H, Eosinophils # (Auto) 0.2, Basophils # (Auto) 0.0, Nucleated Red Blood Cells % (auto) 0.2H, Anion Gap 7L, Glomerular Filtration Rate > 60.0, Calcium Level 7.4L, C-Reactive Protein, Quantitative 9.43H 03/23/20 05:41: Bedside Glucose (Misc Panel) 79L CBC/BMP Laboratory Tests 03/23/20 05:26 Microbiology Microbiology 03/20/20 Gram Stain - Final, Complete 03/20/20 Wound Culture - Final, Complete Streptococcus Group G 03/18/20 Blood Culture - Preliminary, Resulted No Growth after 72 hours. All specime... 03/18/20 Blood Culture - Preliminary, Resulted No Growth after 72 hours. All specime... Allergies Coded Allergies: Penicillins (Verified Allergy, Mild, rash, 10/14/18) Home Medications Scheduled Amlodipine Besylate (Norvasc) 5 Mg Tablet, 5 MG PO DAILY, (Reported) Brimonidine Tartrate (Alphagan P) 100 Drop/5 Ml Soln, 1 DROP OU BID, (Reported) Calcium Carbonate/Vitamin D3 (Calcium 600-Vit D3 200 Tablet) 1 Tab Tab, 1 TAB PO BID, (Reported) Ergocalciferol (Vitamin D2) (Vitamin D2) 50,000 Units Cap, 50,000 UNITS PO Q2WK, (Reported) Esomeprazole Magnesium (Esomeprazole Magnesium) 40 Mg Cap, 40 MG PO DAILY, (Reported) Ezetimibe (Ezetimibe) 10 Mg Tab, 10 MG PO DAILY, (Reported) Ferrous Sulfate (Ferrous Sulfate) 325 Mg Tab, 325 MG PO TID, (Reported) Insulin Detemir (Levemir Flextouch) 100 Unit/Ml Inj, 45 UNITS SC DAILY, (Reported) Insulin Detemir (Levemir) 100 Unit/1 Ml Vial, 40 UNITS SC QHS, (Reported) Insulin Human Lispro (Humalog) 100 Unit/1 Ml Vial, 1 DOSE SC AC, (Reported) PER SLIDING SCALE Latanoprost (Xalatan) 0.005% 2.5ML Drops, 1 DROP OU QHS, (Reported) Lisinopril (Lisinopril) 20 Mg Tablet, 20 MG PO DAILY, (Reported) Magnesium Chloride (Mag64) 64 Mg Tabcr, 64 MG PO BID, (Reported) Metformin HCl (Metformin HCl) 1,000 Mg Tab, 1,000 MG PO BID, (Reported) Multivitamin with Iron (Tab-A-Bharath with Iron) 1 Tab Tab, 1 TAB PO DAILY, (Reported) Pioglitazone HCl (Pioglitazone HCl) 30 Mg Tab, 30 MG PO DAILY, (Reported) Scheduled PRN Acetaminophen (Tylenol Extra Strength) 500 Mg Tablet, 1,000 MG PO Q6H PRN for PAIN / FEVER, (Reported) Brigitte Prado Mar 23, 2020 08:27
--- NOTE | 2020-03-23 13:33 | REP ---
INDICATION: left foot dry gangrene/nonhealing diabetic ulcer PAD? COMPARISON: None. TECHNIQUE: Real time lock scale and color Doppler evaluation of the bilateral lower extremity arterial vasculature using linear high frequency transducer. FINDINGS: Right lower extremity demonstrates moderate to significant mixed atheromatous plaquing with biphasic wave patterns to the level of the proximal superficial femoral artery and subsequent monophasic wave pattern in the mid superficial femoral artery. There is subsequent occlusion of the distal superficial femoral artery with reversed flow in the popliteal artery. Patient is noted to be status post below the knee amputation. Left lower extremity demonstrates moderate to significant mixed atheromatous plaquing with biphasic wave pattern at the common femoral artery followed by monophasic wave patterns. There is evidence for 2:1 stenosis at the profundus, mid superficial femoral artery, popliteal artery and distal anterior tibial artery. Increased diastolic flow is noted consistent with hyperemia likely related to gangrenous changes of the left foot. Peak systolic velocities (cm/sec) Common femoral artery: Right 79; Left 155 Profunda femoris: Right 130; Left 104/156 SFA (proximal): Right 102; Left 99 SFA (mid): Right 64; Left 113/177 SFA (distal): Right occluded; Left 87 Popliteal artery: Right reversal; Left 71/131 DIANNA (prox.): Right -; Left 115 Tibioperoneal trunk: Right -; Left 98 HOSPICE SPIRITUAL CARE COORDINATOR (prox.): Right -; Left - HOSPICE SPIRITUAL CARE COORDINATOR (distal): Right -; Left 25 DIANNA (distal): Right -; Left 85/189 IMPRESSION: Marked atheromatous changes with evidence for right distal superficial femoral artery occlusion and areas of stenosis through the left profundus, superficial femoral artery, popliteal artery, and anterior tibial artery. <Electronically signed by Vik Alcantar > 03/23/20 [id number]
[2020-03-23 14:00] VITALS: BP 124/66
[2020-03-23] MEDS: LEVEMIR (INSULIN DETEMIR) 1 UNITS/0.01ML SC SCH (21:32)
[2020-03-23] MEDS: LATANOPROST 0.005% OPHTH SOLN 2.5 ML OU SCH (21:33)
[2020-03-23 22:00] VITALS: BP 144/70
[2020-03-24] MEDS: MEROPENEM INJ 1 GM in IV 1 EA IV SCH ×3 (02:07→17:54)
[2020-03-24 05:53] LABS: BASO % 0.5 % (0.0-1.0); EOS # 0.2 10^3/uL (0.0-0.5); EOS % 2.6 % (0.0-3.0); HEMATOCRIT 26.4 % (42.0-52.0); HEMOGLOBIN 8.1 g/dl (13.5-17.5); LYMPH # 1.7 10^3/uL (1.5-5.0); LYMPH % 19.6 % (24.0-44.0); MEAN CORPUSCULAR HEMOGLOBIN 28.1 pg (27.0-33.0); MEAN CORPUSCULAR HGB CONC 30.7 g/dl (32.0-36.5); MEAN CORPUSCULAR VOLUME 91.7 fl (80.0-96.0); MONO % 10.9 % (0.0-5.0); NEUTROPHILS # 5.8 10^3/uL (1.5-8.5); NEUTROPHILS % 65.9 % (36.0-66.0); PLATELET COUNT, AUTOMATED 211 10^3/uL (150-450); RED BLOOD COUNT 2.88 10^6/uL (4.30-6.10); WHITE BLOOD COUNT 8.8 10^3/uL (4.0-10.0)
[2020-03-24 06:00] VITALS: BP 131/62
[2020-03-24 06:17] LABS: BLOOD UREA NITROGEN 16 MG/DL (7-18); CALCIUM LEVEL 7.2 MG/DL (8.8-10.2); CARBON DIOXIDE LEVEL 30 MEQ/L (21-32); CHLORIDE LEVEL 101 MEQ/L (98-107); CREATININE FOR GFR 1.07 MG/DL (0.70-1.30); GLOMERULAR FILTRATION RATE > 60.0 (>42); GLUCOSE, FASTING 102 MG/DL (70-100); POTASSIUM SERUM 4.4 MEQ/L (3.5-5.1); SODIUM LEVEL 137 MEQ/L (136-145)
[2020-03-24] MEDS: HumaLOG INSULIN (NovoLOG) PER UNIT SC SCH ×4 (08:50→21:00)
--- NOTE | 2020-03-24 09:00 | IPNPDOC ---
Text Note Date of Service The patient was seen on 03/24/20. NOTE Vascular surgery. Dr. Mcmullen The patient is a 74-year-old male admitted to [facility] 03/18/20 with, to the left foot after dropping a heavy box on top of his foot. Found to have left foot osteomyelitis / left foot and lower leg cellulitis/, dry gangrene. Patient with history of right AKA. GENERAL APPEARANCE: A/O HEENT: MMM RESPIRATORY: no wheezing CARDIOVASCULAR: RRR ABDOMEN: soft, NT EXTREMITIES: Left foot/5th toe with black eschar, ulcer on dorsum of foot 4-5cm diameter, erythema extending to prox pretibial area but not beyond the area of skin marker demarcation. Betadine soaked gauze is applied to the patient's wounds on the left foot. Left foot is wrapped with Kerlix. ASSESSMENT/PLAN: 1. Left foot trauma/left foot osteomyelitis / left foot and lower leg cell ulitis/, dry gangrene. IV antibiotics as per hospitalist service. Betadine dressings to left foot daily. Arterial ultrasound is reviewed as per Dr. Mcmullen. Left lower extremity with significant disease throughout the SFA and stenosis noted at the profunda. Biphasic at the common femoral and monophasic distally. Plan is to proceed with left lower extremity angiogram 03/25/[address] Mcmullen. This is discussed and reviewed with the patient. The procedure, risks, benefits and alternatives are reviewed, informed consent is obtained and placed with the chart. NPO except meds in AM for procedure. 2. History of right AKA. Patient uses prosthetic. 3. CKD3 Initially on admission serum creatinine was 1.79 with GFR 39. Renal function has improved and this morning GFR is noted to be greater than 60 with serum creatinine 1.07. VS,Fishbone, I+O VS, Fishbone, I+O Laboratory Tests 03/24/20 05:26 Vital Signs Date Time Temp Pulse Resp B/P (MAP) Pulse Ox O2 Delivery O2 Flow Rate FiO2 03/24/20 06:00 98.6 97 17 131/62 (85) 96 Room Air I&O- Last 24 Hours up to 6 AM 03/24/20 05:59 Intake Total 2130 ml Output Total 2425 ml Balance -295 ml Brigitte Prado Mar 24, 2020 09:00
--- NOTE | 2020-03-24 10:29 | IPNPDOC ---
Text Note Date of Service The patient was seen on 03/24/20. NOTE Subjective: Patient seen and examined this morning. No acute overnight events reported. No new medical complaints this morning. Objective: VITALS SEE BELOW GENERAL APPEARANCE: No acute distress, lying comfortably in bed, chronically ill-appearing HEENT: Normocephalic, atraumatic, Poor dentition Heart: +S1 S2 RRR , no murmurs/rubs/gallops LUNGS: CTA B/L ABDOMEN: Soft nt nd +bs x 4 quadrants EXT: Malodorous dry gangrene of the left foot ; right BKA; left foot w necrotic black eschar on left lateral foot w necrotic ulcer 5cm/x5cm on dorsum, malodorous exposed tendons on toes at base of the ulcer. LABORATORY DATA:see below ASSESSMENT: 74M with PMHx IDDM2, polyneuropathy, R AKA, HTN, DLP and anemia, presents for 1wk h/o trauma to left foot, admitted for DKA and left foot dry gangrene/cellulitis. Plan: #DKA - resolved -On consistent carbohydrate diet -On insulin sliding scale with SMC coverage per protocol -On fingersticks every before meals at bedtime -On hypoglycemic protocol #Traumatic injury to Left Foot at home. -Was initially an IV vancomycin, ceftriaxone for left foot gangrene and cellulitis. -Due to persistent white count and low-grade fever, ceftriaxone was discontinued on 03/20/2020. -IV meropenem was started on 03/20/2020 for broader gram-negative and anaerobic coverage Currently on day #5 of meropenem -s/p 4 days of iv vancomycin, discontinued 03/22/20. - follow as per vascular - assistance appreciated - plan for angiogram tomorrow 03/25/20 # Left foot osteomyelitis / left foot and lower leg cellulitis/, dry gangrene -completed 4days IV vanco - IV meropenem, day #4, status post ceftriaxone -vascular surgical consult for revascularization prior to amputation as recommended by general surgery #Peripheral vascular disease -arterial Dopplers and vascular surgical consult for revascularization prior to amputation as recommended by general surgery #CKD3 -Probably at baseline creatinine. Avoid nephrotoxins. -Renally dose all medications # left lower lobe infiltrate -No complaints of cough or fever. Currently on broad-spectrum antibiotics, vancomycin day #4 -s/p 2 days of ceftriaxone -Day #5 Meropenem # HTN -Resumed on home medications #Hx of BERNADETTE - H/H slowly trending down - continue to monitor -No acute indication for RBC transfusion -No signs or symptoms of acute GI bleed # DLP -Resume home medications Disposition: pending angiogram, vascular follow up, likely BKA VS,Fishbone, I+O VS, Fishbone, I+O Laboratory Tests 03/24/20 05:26 Vital Signs Date Time Temp Pulse Resp B/P (MAP) Pulse Ox O2 Delivery O2 Flow Rate FiO2 03/24/20 06:00 98.6 97 17 131/62 (85) 96 Room Air I&O- Last 24 Hours up to 6 AM 03/24/20 06:00 Intake Total 2180 ml Output Total 2350 ml Balance -170 ml MELISSA MURRIETA MD Mar 24, 2020 10:28
[2020-03-24] MEDS: NEUTRA-PHOS 1.5 GM PACKET PO SCH ×4 (10:58→20:58)
[2020-03-24] MEDS: amLODIPine 5 MG TAB PO SCH (10:59)
[2020-03-24] MEDS: BRIMONIDINE 0.1% OPHTH SOLN 5 ML OU SCH ×2 (10:59→21:03)
[2020-03-24] MEDS: SENOKOT S TAB PO SCH ×2 (11:00→20:57)
[2020-03-24] MEDS: MIRALAX *UNIT DOSE* 17GM PACKET PO SCH ×2 (11:00→20:57)
[2020-03-24 14:00] VITALS: BP 142/63
[2020-03-24] MEDS: LEVEMIR (INSULIN DETEMIR) 1 UNITS/0.01ML SC SCH (21:02)
[2020-03-24] MEDS: LATANOPROST 0.005% OPHTH SOLN 2.5 ML OU SCH (21:03)
[2020-03-24 22:00] VITALS: BP 140/63
[2020-03-25] MEDS: MEROPENEM INJ 1 GM in IV 1 EA IV SCH ×3 (01:46→18:07)
[2020-03-25 06:00] VITALS: BP 131/66
[2020-03-25 06:52] LABS: BASO % 0.4 % (0.0-1.0); EOS # 0.3 10^3/uL (0.0-0.5); HEMATOCRIT 27.7 % (42.0-52.0); HEMOGLOBIN 8.4 g/dl (13.5-17.5); LYMPH % 23.7 % (24.0-44.0); MEAN CORPUSCULAR HEMOGLOBIN 27.5 pg (27.0-33.0); MEAN CORPUSCULAR HGB CONC 30.3 g/dl (32.0-36.5); MEAN CORPUSCULAR VOLUME 90.5 fl (80.0-96.0); MONO # 0.9 10^3/uL (0.0-0.8); MONO % 10.8 % (0.0-5.0); NEUTROPHILS # 5.1 10^3/uL (1.5-8.5); NEUTROPHILS % 61.5 % (36.0-66.0); PLATELET COUNT, AUTOMATED 254 10^3/uL (150-450); RED BLOOD COUNT 3.06 10^6/uL (4.30-6.10); WHITE BLOOD COUNT 8.3 10^3/uL (4.0-10.0)
[2020-03-25 07:15] LABS: BLOOD UREA NITROGEN 15 MG/DL (7-18); CALCIUM LEVEL 8.1 MG/DL (8.8-10.2); CARBON DIOXIDE LEVEL 29 MEQ/L (21-32); CHLORIDE LEVEL 102 MEQ/L (98-107); CREATININE FOR GFR 1.06 MG/DL (0.70-1.30); GLOMERULAR FILTRATION RATE > 60.0 (>42); GLUCOSE, FASTING 57 MG/DL (70-100); POTASSIUM SERUM 4.3 MEQ/L (3.5-5.1); SODIUM LEVEL 137 MEQ/L (136-145)
[2020-03-25] MEDS: HumaLOG INSULIN (NovoLOG) PER UNIT SC SCH ×4 (07:30→21:00)
[2020-03-25] MEDS: SENOKOT S TAB PO SCH ×2 (09:00→21:00)
[2020-03-25] MEDS: MIRALAX *UNIT DOSE* 17GM PACKET PO SCH ×2 (09:00→21:00)
[2020-03-25] MEDS: BRIMONIDINE 0.1% OPHTH SOLN 5 ML OU SCH ×2 (09:16→21:47)
[2020-03-25] MEDS: NEUTRA-PHOS 1.5 GM PACKET PO SCH ×4 (09:16→21:45)
[2020-03-25] MEDS: amLODIPine 5 MG TAB PO SCH (09:20)
[2020-03-25] MEDS ORDERED: ISOVUE-300 61% 50ML VIAL As Ordered ONE (11:11)
[2020-03-25] MEDS ORDERED: LIDOCAINE 1% MDV 20ML VIAL As Ordered ONE (11:11)
[2020-03-25] MEDS ORDERED: DEXTROSE 50% 50 ML SYRINGE As Ordered ONE (11:13)
[2020-03-25] MEDS ORDERED: fentaNYL 100 MCG/2 ML INJECTION (J3010) As Ordered ONE (11:21)
[2020-03-25] MEDS ORDERED: MIDAZOLAM INJ 2MG/2ML VIAL (J2250 PER 1MG) As Ordered ONE (11:21)
--- NOTE | 2020-03-25 12:17 | IPNPDOC ---
Text Note Date of Service The patient was seen on 03/25/20. NOTE Subjective: Patient seen and examined this morning. Overnight . He had an episode of hypoglycemia and was refusing intravenous repletion, but insisted on oral. No new medical complaints this morning. Objective: VITALS SEE BELOW GENERAL APPEARANCE: No acute distress, lying comfortably in bed, chronically ill-appearing HEENT: Normocephalic, atraumatic, Poor dentition Heart: +S1 S2 RRR , no murmurs/rubs/gallops LUNGS: CTA B/L ABDOMEN: Soft nt nd +bs x 4 quadrants EXT: Malodorous dry gangrene of the left foot ; right BKA; left foot w necrotic black eschar on left lateral foot w necrotic ulcer 5cm/x5cm on dorsum, malodorous exposed tendons on toes at base of the ulcer. LABORATORY DATA:see below ASSESSMENT: 74M with PMHx IDDM2, polyneuropathy, R AKA, HTN, DLP and anemia, presents for 1wk h/o trauma to left foot, admitted for DKA and left foot dry gangrene/celluli tis. Plan: #Traumatic injury to Left Foot at home. -Was initially an IV vancomycin, ceftriaxone for left foot gangrene and cellulitis. -Due to persistent white count and low-grade fever, ceftriaxone was discontinued on 03/20/2020. -IV meropenem was started on 03/20/2020 for broader gram-negative and anaerobic coverage Currently on day #5 of meropenem -s/p 4 days of iv vancomycin, discontinued 03/22/20. - follow as per vascular - assistance appreciated - plan for angiogram today 03/25/20 # Left foot osteomyelitis / left foot and lower leg cellulitis/, dry gangrene -completed 4days IV vanco - IV meropenem, day #5, status post ceftriaxone -vascular surgical consult for revascularization prior to amputation as recommended by general surgery #DKA - resolved -On consistent carbohydrate diet -On insulin sliding scale with SMC coverage per protocol -On fingersticks every before meals at bedtime -On hypoglycemic protocol #DM - severely uncontrolled - A1C>14 #Peripheral vascular disease -arterial Dopplers and vascular surgical consult for revascularization prior to amputation as recommended by general surgery #CKD3 -Probably at baseline creatinine. Avoid nephrotoxins. -Renally dose all medications # left lower lobe infiltrate -No complaints of cough or fever. Currently on broad-spectrum antibiotics, vancomycin day #4 -s/p 2 days of ceftriaxone -Day #5 Meropenem # HTN -Resumed on home medications #Hx of BERNADETTE - H/H slowly trending down - continue to monitor -No acute indication for RBC transfusion -No signs or symptoms of acute GI bleed # DLP -Resume home medications Disposition: pending angiogram, vascular follow up, likely BKA VS,Carmen, I+O VS, Marianelae, I+O Laboratory Tests 03/25/20 06:33 Vital Signs Date Time Temp Pulse Resp B/P (MAP) Pulse Ox O2 Delivery O2 Flow Rate FiO2 03/25/20 11:07 98.4 89 18 97 Room Air 03/25/20 09:20 137/85 I&O- Last 24 Hours up to 6 AM 03/25/20 05:59 Intake Total 2835 ml Output Total 3925 ml Balance -1090 ml MELISSA MURRIETA MD Mar 25, 2020 12:17
[2020-03-25] MEDS ORDERED: ASPIRIN 81 MG ENTERIC TAB PO ONE (13:30)
--- NOTE | 2020-03-25 13:50 | ROOPDOC ---
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 Ultrasound-guided access right common femoral artery 2. Aortoiliofemoral arteriogram 3. Selection left common femoral artery and left lower extremity arteriogram 4. Selection left mid superficial femoral artery and left lower extremity runoff 5. Angioplasty left distal SFA and popliteal artery with 5 x 100 [place] balloon 6. Stenting left distal SFA and proximal popliteal artery with 6 x 150 Innova stent and post-dilation with 6 x 200 [place] balloon 7. Attempt to cross chronic total occlusion left peroneal artery and posterior tibial arteries, aborted 8. Angioplasty left popliteal and proximal anterior tibial arteries with 3.5 x 100 Johnathan balloon 9. Completion arteriograms left lower extremity 10. Mynx closure right common femoral artery SURGEON: Shailesh Mcmullen MD ANESTHESIA: Local anesthesia 3 mL lidocaine. Moderate intravenous conscious sedation was supervised by Dr. Mcmullen. The patient was independently monitored by registered nurse assigned to the Department of radiology using automated blood pressure, EKG, and pulse oximetry. The detailed sedation record is probably stored in the hospital information system. The following is a brief sedation record: Start time 12:06, stop time 13:13, Versed 2 mg IV, fentanyl 100 g IV, heparin 4000 units IV. CONTRAST: 46 mL Isovue-300 INDICATION FOR PROCEDURE: This is a 74-year-old gentleman with long-standing peripheral vascular disease and history of a right below-knee amputation who was admitted with gangrene of the left foot and seen by general surgery last week, then we were consulted early this week for possible revascularization and possible limb amputation. Based on the patient's arterial study, I did not feel he could heel a below-knee amputation without some improvement in his arterial perfusion of the left lower extremity below the knee. The patient was hopefully would have a below-knee amputation as it would give him a better option to walk with dual prosthetics. He currently walks with a right lower extremity prosthetic. Risks benefits and alternatives to a left lower extremity arteriogram and potential intervention were explained to the patient and he was agreeable to proceed. Informed consent was obtained. INTERPRETATION: 1. The distal aorta and the bilateral common iliac arteries, hypogastric a rteries, and external iliac arteries are widely patent. 2. The bilateral common femoral arteries have some occasion plaque but are otherwise patent with good runoff into the proximal profunda and SFA bilaterally. 3. The left superficial femoral artery is widely patent but becomes increasingly ectatic and calcified without stenosis towards the mid distal aspect of the vessel, and then the proximal popliteal artery has heavy bulky calcified plaque throughout with several near occlusions, and then become slightly diminutive in size in the mid distal portion. There are multiple genicular vessels around the knee that collateralize to supply the proximal calf muscle The anterior tibial artery is the main runoff to the foot. There is a few areas of focal 60% stenos is in the proximal anterior tibial artery, but distal to this towards the foot and into the dorsal pedis artery there is rapid flow. No significant distal stenoses are noted. The peroneal and posterior tibial artery occluded near their origins, and the perineal does reconstitute with thready flow for a few centimeters through collaterals, but otherwise is occluded all the way to the ankle. The posterior tibial artery does not reconstitute. Both have large collaterals near their occlusions that then supply some of the calf. 4. After angioplasty of the distal SFA and proximal popliteal artery, there is still heavy plaque with mild dissections, significant flow limitation. After stenting the proximal popliteal artery into the distal SFA with a 6 x 150 Innova stent and post-dilating with a 6 x 200 [place] balloon, there is widely patent flow through the distal SFA and popliteal segments with no embolization, extravasation, or dissections. No significant residual stenosis present. 5. After extensive attempts to cannulize and cross the chronic total occlusions in the left peroneal and posterior tibial arteries, this was aborted. There are large collaterals near the occlusions in both vessels, and the wires and catheters consistently select collaterals consider crossing the occlusions. After aborting the attempts to cross the occlusions and these vessels, we saw no extravasation on completion arteriogram. 6. After angioplasty of the distal popliteal artery into the proximal anterior tibial artery with a Johnathan balloon, we had widely patent flow with no significant residual stenoses in the anterior tibial artery and rapid flow to the foot. No extravasation, embolization, or dissections were noted. There was still good collateral flow from genicular vessels around the knee to help supply the calf muscle medially. REPORT OF OPERATION: Patient was brought to the angiographic suite in stable condition. His bilateral groins were prepped and draped in sterile fashion. A timeout was performed. Sedation was administered without complication. Local anesthesia was administered to skin and subcutaneous tissue over the right common femoral artery. A microneedle was used to access the artery under ultrasound guidance. A wire was passed through this access needle was removed. A 4 Bengali sheath was placed and flushed with saline. A Glidewire and on reflex catheter were advanced under fluoroscopic guidance into the distal aorta. Aortoiliofemoral arteriograms were performed. Please see interpretation above. We then went up and over the bifurcation with a Glidewire and the catheter. We selected the left common femoral artery and arteriogram left lower extremity was performed, please see interpretation above. We then selected the mid left superficial femoral artery and a runoff of the left lower extremity was performed. Please see interpretation above. We then were able to navigate the wire pass the near occlusions in the popliteal artery. Extensive sheath over the wire for 6 x 45 cm destination sheath and flushed the sheath with saline. A 5 x 100 [place] balloon was advanced over the wire and the popliteal artery was angioplastied for multiple three-minute inflations. Following this are still significant residual stenosis, bulky calcified plaque, flow limitation, mild dissections. A 6 x 150 Innova stent was placed from the mid popliteal artery to the distal superficial femoral artery on the left. This was then postdilated with a 6 x 200 [place] balloon. Following this, there is widely patent flow through the distal SFA and popliteal artery with no significant residual stenosis. No extravasation embolization or dissections were noted. We then exchange the wire for an O18 Glidewire advantage and navigated this towards the tibials. I Mccormick catheter was advanced over the wire and we attempted to cross first into the posterior tibial artery, then into the peroneal artery on the left. Unfortunately, both vessels have large collaterals near their occlusions which the wire continue to try to select. We could not navigate the wire or the catheter down through the occlusions in either tibial vessel. Once this was aborted, completion arteriogram showed there was no extravasation from our attempts. We then navigated the wire into the anterior tibial artery and a 3.5 x 100 Johnathan balloon was advanced over the wire from the distal popliteal artery through the proximal anterior tibial artery. A three-minute inflations was performed and following this there was widely patent flow in line through the left femoral popliteal tibial system. Unfortunately, the best we could offer the patient was in line single vessel patent runoff to the foot, but it is a large vessel. He does have good collaterals from his genicular vessels to the medial calf. I'm hopeful this will be adequate blood flow to heal a below-knee amp utation. It is his best chance to be successful with walking with bilateral prosthetics. We exchange the sheath for short 6 Bengali sheath over an O35 wire and the Mynx closure device was deployed with good hemostasis. The patient was then taken to recovery in stable condition. In recovery, the patient became a bit confused, and then quite combative, and we were unable to keep him laying flat. During that time, he did not appear to have any bleeding or hematoma, but we will need to watch for this tonight. He cannot be redirected right now to lay flat despite our best efforts. Thankfully, he does not appear to have any negative sequela from this so far. We'll continue to watch closely. ESTIMATED BLOOD LOSS: Approximately 5 mL. COMPLICATIONS: None PLAN: Patient will return to the floor after an hour of monitoring in our recovery. He will likely need a sitter if he is still confused. He will be on bedrest for 4 hours postprocedure. I will speak with him tomorrow about considering amputation for the left lower extremity. He is not consolable at this time. The patient is not on an aspirin so we started this, and I also started him on heparin 5000 units 3 times a day. I like to put him on Plavix, but if he is going to have an amputation I think that we would have too much bleeding, as we will not be able to use a tourniquet due to recent stent placement. Therefore, we will hope that aspirin and 3 times a day heparin will be adequate for now. Continue local wound care to left foot. Betadine dressings are fine since the foot is not felt salvageable. We appreciate the opportunity to participate in the care of this patient. SHAILESH MCMULLEN MD Mar 25, 2020 13:50
[2020-03-25 15:00] VITALS: BP 150/73
[2020-03-25] MEDS: HEPARIN SOD (PORCINE) 5000UNITS/ML 1ML VIAL/SYRINGE SQ SCH ×2 (15:16→21:45)
[2020-03-25] MEDS: LEVEMIR (INSULIN DETEMIR) 1 UNITS/0.01ML SC SCH (21:00)
[2020-03-25] MEDS: LATANOPROST 0.005% OPHTH SOLN 2.5 ML OU SCH (21:47)
[2020-03-25 22:00] VITALS: BP 129/66
[2020-03-26] VITALS (10 sets, daily range): BP systolic 99–138; BP diastolic 43–66
[2020-03-26] MEDS: MEROPENEM INJ 1 GM in IV 1 EA IV SCH ×3 (01:43→17:31)
[2020-03-26 06:06] LABS: BASO % 0.4 % (0.0-1.0); EOS # 0.2 10^3/uL (0.0-0.5); EOS % 2.7 % (0.0-3.0); HEMATOCRIT 26.7 % (42.0-52.0); HEMOGLOBIN 8.1 g/dl (13.5-17.5); LYMPH # 1.6 10^3/uL (1.5-5.0); MEAN CORPUSCULAR HEMOGLOBIN 28.3 pg (27.0-33.0); MEAN CORPUSCULAR HGB CONC 30.3 g/dl (32.0-36.5); MEAN CORPUSCULAR VOLUME 93.4 fl (80.0-96.0); MONO # 0.6 10^3/uL (0.0-0.8); MONO % 8.5 % (0.0-5.0); NEUTROPHILS # 4.5 10^3/uL (1.5-8.5); PLATELET COUNT, AUTOMATED 271 10^3/uL (150-450); RED BLOOD COUNT 2.86 10^6/uL (4.30-6.10)
[2020-03-26 06:44] LABS: BLOOD UREA NITROGEN 16 MG/DL (7-18); CALCIUM LEVEL 8.3 MG/DL (8.8-10.2); CARBON DIOXIDE LEVEL 27 MEQ/L (21-32); CHLORIDE LEVEL 100 MEQ/L (98-107); CREATININE FOR GFR 1.07 MG/DL (0.70-1.30); GLOMERULAR FILTRATION RATE > 60.0 (>42); GLUCOSE, FASTING 347 MG/DL (70-100); POTASSIUM SERUM 5.2 MEQ/L (3.5-5.1); SODIUM LEVEL 133 MEQ/L (136-145)
[2020-03-26] MEDS: HumaLOG INSULIN (NovoLOG) PER UNIT SC SCH ×4 (07:30→21:14)
[2020-03-26] MEDS ORDERED: propofoL 200 MG/20 ML VIAL As Ordered ONE ×2 (07:42→10:10)
[2020-03-26] MEDS ORDERED: LIDOCAINE 2% 100MG/5ML SDV (FOR ANES.) As Ordered ONE (07:42)
[2020-03-26] MEDS ORDERED: ROCURONIUM BROMIDE 50 MG/5 ML VIAL As Ordered ONE (07:42)
[2020-03-26] MEDS ORDERED: ONDANSETRON 4MG/2ML VIAL As Ordered ONE (07:43)
[2020-03-26] MEDS ORDERED: fentaNYL 100 MCG/2 ML INJECTION (J3010) As Ordered ONE (07:43)
[2020-03-26] MEDS ORDERED: VANCOMYCIN HCL 1,000 MG, VIAL MATE ADAPTER 1 EACH in D5W 250 ML IV ONE (08:00)
[2020-03-26] MEDS ORDERED: VANCOMYCIN 1000MG/20ML VIAL As Ordered ONE (08:00)
--- NOTE | 2020-03-26 08:02 | IPNPDOC ---
Date Seen The patient was seen on 03/26/20. Progress Note Patient seen and examined. Last night, we discussed the risks benefits and alternatives to a left below-knee versus above-knee amputation. I discussed with the patient that we did improve the blood flow to the left lower extremity with his procedure yesterday, but that if there was too much infection in the calf or the skin was not viable on the posterior flat, we would have to do an above-knee amputation regardless. My hope is that we will be able to do a below knee. The patient was agreeable to proceed, he and his family were extensively counseled, informed consent was obtained. This morning, I reiterated this with the patient and asked if he had any questions, and he said no he understands. We will plan to proceed soon to the OR for left below-knee versus above-knee amputation. VS, I&O, 24H, Fishbone Vital Signs/I&O Vital Signs Date Time Temp Pulse Resp B/P (MAP) Pulse Ox O2 Delivery O2 Flow Rate FiO2 03/26/20 06:00 98.3 81 19 125/61 (82) 97 Room Air 03/25/20 13:10 2 I&O- Last 24 Hours up to 6 AM 03/26/20 05:59 Intake Total 950 ml Output Total 5270 ml Balance -4320 ml Laboratory Data 24H LABS Laboratory Tests 2 03/25/20 11:08: Bedside Glucose (Misc Panel) 67L 03/25/20 11:40: Bedside Glucose (Misc Panel) 149H 03/25/20 13:26: Bedside Glucose (Misc Panel) 125H 03/25/20 16:45: Bedside Glucose (Misc Panel) 179H 03/25/20 18:08: Coronavirus (COVID-19)(PCR) NEGATIVE 03/25/20 20:24: Bedside Glucose (Misc Panel) 217H 03/26/20 05:18: Immature Granulocyte % (Auto) 0.4, Neutrophils (%) (Auto) 65.0, Lymphocytes (%) (Auto) 23.0L, Monocytes (%) (Auto) 8.5H, Eosinophils (%) (Auto) 2.7, Basophils (%) (Auto) 0.4, Neutrophils # (Auto) 4.5, Lymphocytes # (Auto) 1.6, Monocytes # (Auto) 0.6, Eosinophils # (Auto) 0.2, Basophils # (Auto) 0.0, Nucleated Red Blood Cells % (auto) 0.0, Anion Gap 6L, Glomerular Filtration Rate > 60.0, Calcium Level 8.3L 03/26/20 07:31: Bedside Glucose (Misc Panel) 304H CBC/BMP Laboratory Tests 03/26/20 05:18 Microbiology Microbiology 03/20/20 Gram Stain - Final, Complete 03/20/20 Wound Culture - Final, Complete Streptococcus Group G 03/18/20 Blood Culture - Final, Complete NO GROWTH AFTER 5 DAYS 03/18/20 Blood Culture - Final, Complete NO GROWTH AFTER 5 DAYS SHAILESH MARADIAGA MD Mar 26, 2020 08:02
[2020-03-26] MEDS: MIRALAX *UNIT DOSE* 17GM PACKET PO SCH ×2 (09:00→21:00)
[2020-03-26] MEDS: NEUTRA-PHOS 1.5 GM PACKET PO SCH ×2 (09:00→12:32)
[2020-03-26] MEDS: SENOKOT S TAB PO SCH ×2 (09:00→21:13)
[2020-03-26] MEDS ORDERED: BUPIVACAINE HCL 0.5% 30 ML VIAL As Ordered ONE (09:18)
[2020-03-26] MEDS ORDERED: LIDOCAINE 2% W/EPINEPHRINE 20ML VIAL **PRES FREE As Ordered ONE (09:18)
[2020-03-26] MEDS ORDERED: PHENYLephrine HCL 500 MCG/5 ML (100MCG/ML) SYRINGE (J2370) As Ordered ONE ×2 (10:10→10:37)
--- NOTE | 2020-03-26 11:19 | ROOPDOC ---
[facility] Report Of Operation Report of Operation DATE OF PROCEDURE: 03/26/20 PREPROCEDURE DIAGNOSES: Atherosclerosis of the [place] arteries with gangrene left foot POSTPROCEDURE DIAGNOSES: Same PROCEDURE: Left below-knee amputation SURGEON: Shailesh Mcmullen MD ANESTHESIA: LMA and local INDICATION FOR PROCEDURE: Mr. Knott is a very pleasant 74-year-old gentleman with severe end-stage peripheral vascular disease status post revascularization of his left popliteal artery and anterior tibial artery yesterday, and now we prepare for a left below-knee versus above-knee amputation. I believe the patient has adequate blood flow for a below-knee amputation, but I am not sure if the quality of the tissue or the posterior flap due to gangrene of the foot and infection. I discussed with him that a possible we would do a left below- knee amputation, since this is his best option to ambulate again as a bilateral amputee. He has a history of a right below-knee amputation and walks with a prosthetic. At his age, his best chance to ambulate again with bilateral prosthetics is with a below-knee amputation. We will do everything we can to provide this if possible. Risks benefits and alternatives were explained to the patient and he was agreeable to proceed. Informed consent was obtained. REPORT OF OPERATION: The patient was brought to the OR in stable condition and placed supine on your table. LMA anesthesia and antibiotics were administered without complication. His left lower extremity was prepped and draped in sterile fashion. A timeout was performed. A skin marker was used to fashion and incision with a long posterior flap, and then local anesthesia was administered around the planned incision. A transverse incision was made 12 cm distal to the tibial plateau and then extended medially and laterally 12 cm distal to this for a long posterior flap. Bovie cautery was used to extend the incision down through the subcutaneous tissue and muscle. Bridging vessels were suture ligated and divided. Arterial structures were suture ligated and divided. Veins were suture ligated and divided. We did not use a tourniquet for this procedure because the patient had a proximal popliteal artery, distal SFA artery stent placed yesterday and we do not want to crush it. The tibia was transected slightly proximally with an anterior bevel and the fibula was transected slightly more proximal to this. We then continued the dissection along the posterior muscle flap and the lower leg was sent for pathology. We irrigated with saline. Additional suture ligation and Bovie cautery were used for hemostasis. The nerve was high ligated and divided and local anesthesia was placed around the perineural structures. A rasp was used to smooth the edges of the bones and further bevel the anterior aspect of the tibia. We irrigated a second time. The posterior muscle and fascia were attached to the periosteal tissue anterior to the tibia to protect the area from erosion of the bone. Jqzdif-[id number]-yquqh Vicryl sutures were used across the area to secure the fascia. We then used [id number]-bo-[id number] Vicryl sutures along the entire fascial edge to approximate the edges. We made sure there were fascial closure. We then did a few deep dermal Vicryl sutures, interrupted, to further take tension off the skin edge. Nylon mattress sutures were placed to approximate the skin edges, and jose luis were used as a final closure of the skin. The entire stump was cleaned and dried. Xeroform was placed over the incision and sutures. Lotion was placed on the skin as it was very dry preop. We are hopeful this will help with skin integrity and healing. Fluffs, 4 x 4's, Kerlix, and Sonu wrap were used as a final dressing. The patient was then allowed to awaken from anesthesia and taken to recovery in stable condition. He tolerated the procedure and the anesthesia well. ESTIMATED BLOOD LOSS: Approximately 150 mL. COMPLICATIONS: None SPECIMENS: Left lower leg sent for pathology PLAN: Okay to resume preoperative diet and medications per primary team. Elevate left lower extremity stump to minimize swelling. Encourage patient to straight knee to prevent contractures. Analgesia as needed. Encourage high-protein healing, and tight glucose control. PTOT and ARU eval. We appreciate the opportunity to participate in the care of this patient. SHAILESH MCMULLEN MD Mar 26, 2020 11:19
[2020-03-26] MEDS ORDERED: diazePAM 5MG TABLET PO PRN (11:30)
[2020-03-26] MEDS ORDERED: PERCOCET 5MG/325MG TAB PO PRN (11:30)
[2020-03-26] MEDS ORDERED: LR 1,000 ML IV SCH (11:45)
[2020-03-26] MEDS ORDERED: fentaNYL 100 MCG/2 ML INJECTION (J3010) IV PRN (11:45)
[2020-03-26] MEDS ORDERED: ONDANSETRON 4MG/2ML VIAL IV PRN (11:45)
[2020-03-26] MEDS: ASPIRIN 81 MG ENTERIC TAB PO SCH (12:32)
[2020-03-26] MEDS: PERCOCET 5MG/325MG TAB PO PRN ×2 (12:32→17:44)
[2020-03-26] MEDS: BRIMONIDINE 0.1% OPHTH SOLN 5 ML OU SCH ×2 (12:33→21:15)
[2020-03-26] MEDS: amLODIPine 5 MG TAB PO SCH (12:36)
--- NOTE | 2020-03-26 18:02 | IPN ---
PROGRESS NOTE DATE: 03/26/2020 SUBJECTIVE: Sebas is seen in [address] [place] [address]. He underwent a left below knee amputation today due to gangrene in the lower extremity by Dr. Mcmullen. The patient currently denies chest pain, shortness of breath, or palpitations. PHYSICAL EXAM: Vital signs: Blood pressure 103/43, pulse 91, respirations 18, temperature 98.1 degrees. General appearance: Alert, conversant, no distress. Lungs: Clear. Heart: Regular rate and rhythm. Abdomen: Soft, nontender. His operative site is dressed. LABS: CBC today is unchanged from previous. BMP showed a potassium of 5.2. Blood sugar was 347. It was 57 yesterday morning. I note that his hemoglobin A1c on admission was above measurable range which is unusual. IMPRESSION: 1. Status post left below knee amputation, postop care per vascular surgery. 2. Diabetic ketoacidosis, resolved. Compliance as outpatient is obviously poor. Hemoglobin A1c is above measurable range which is something I have not seen in several years. 3. Peripheral arterial disease. Treatment per vascular surgery. 4. Chronic kidney disease stage III. Follow daily labs. 5. Left lower lobe infiltrate. He is on day three of ceftriaxone, day six of Meropenem. 6. Iron-deficiency anemia. Daily CBCs have been ordered. 7. Hypertension. Blood pressure is low postoperatively. We will be holding his antihypertensives. 8. Mild hyperkalemia. Hold his potassium supplement.
[2020-03-26] MEDS: LEVEMIR (INSULIN DETEMIR) 1 UNITS/0.01ML SC SCH (21:14)
[2020-03-26] MEDS: LATANOPROST 0.005% OPHTH SOLN 2.5 ML OU SCH (21:15)
[2020-03-26] MEDS: HEPARIN SOD (PORCINE) 5000UNITS/ML 1ML VIAL/SYRINGE SQ SCH (21:15)
[2020-03-27] VITALS (11 sets, daily range): BP systolic 112–150; BP diastolic 57–78
[2020-03-27] MEDS: MEROPENEM INJ 1 GM in IV 1 EA IV SCH ×2 (01:12→16:28)
[2020-03-27] MEDS: PERCOCET 5MG/325MG TAB PO PRN (02:10)
[2020-03-27] MEDS: HEPARIN SOD (PORCINE) 5000UNITS/ML 1ML VIAL/SYRINGE SQ SCH ×3 (05:28→21:24)
[2020-03-27 06:28] LABS: HEMATOCRIT 21.3 % (42.0-52.0); MEAN CORPUSCULAR HEMOGLOBIN 28.3 pg (27.0-33.0); MEAN CORPUSCULAR HGB CONC 30.5 g/dl (32.0-36.5); MEAN CORPUSCULAR VOLUME 92.6 fl (80.0-96.0); PLATELET COUNT, AUTOMATED 286 10^3/uL (150-450); WHITE BLOOD COUNT 14.1 10^3/uL (4.0-10.0)
[2020-03-27 06:33] LABS: HEMOGLOBIN 6.5 g/dl (13.5-17.5)
[2020-03-27 06:49] LABS: CALCIUM LEVEL 7.4 MG/DL (8.8-10.2); CREATININE FOR GFR 1.27 MG/DL (0.70-1.30); POTASSIUM SERUM 4.7 MEQ/L (3.5-5.1)
[2020-03-27 07:42] LABS: HEMATOCRIT 20.6 % (42.0-52.0); HEMOGLOBIN 6.4 g/dl (13.5-17.5)
[2020-03-27] MEDS: ASPIRIN 81 MG ENTERIC TAB PO SCH ×2 (08:07→08:11)
[2020-03-27] MEDS: HumaLOG INSULIN (NovoLOG) PER UNIT SC SCH ×4 (08:07→21:25)
[2020-03-27] MEDS: SENOKOT S TAB PO SCH ×2 (08:08→20:53)
[2020-03-27] MEDS: MIRALAX *UNIT DOSE* 17GM PACKET PO SCH ×2 (08:08→20:53)
[2020-03-27] MEDS: BRIMONIDINE 0.1% OPHTH SOLN 5 ML OU SCH ×2 (08:11→21:23)
--- NOTE | 2020-03-27 08:52 | IPN ---
PROGRESS NOTE DATE: 03/27/2020 SUBJECTIVE: Sebas is seen in [address], his hemoglobin is down to 6.4, dropped postoperatively. There is no active bleeding. No epistaxis, rectal bleeding or urinary bleeding and no bleeding from his wound noticed. No chest pain, shortness of breath, or dyspnea on exertion. PHYSICAL EXAMINATION: VITAL SIGNS: Stable. Blood pressure is 120/64, afebrile. LUNGS: Clear. HEART: Regular rhythm. ABDOMEN: Soft, nontender. No masses. Left surgical site is dressed. There is no bleeding. LABORATORY DATA: Hemoglobin is 6.5, white count 14, platelets 286,000, sodium 134, potassium 4.7, BUN is 20, creatinine 1.2, glucose 145. IMPRESSION: 1. Postop anemia, probably from perioperative blood loss. He consented to blood transfusion. Will transfuse 2 units of packed red blood cells. 2. Status post left below knee amputation, postop day #2. Postop care per Anesthesia. 3. Chronic kidney disease Stage III. Renal function is monitored with daily lab work. 4. Diabetic ketoacidosis, resolved. He is on enforced compliance while hospitalized, unfortunately, upon discharge he probably will return to his previous pattern of noncompliance. 5. Left lobe pneumonia. He is on day #4 of Ceftriaxone and day #7 of Meropenem. 6. Hypertension. His antihypertensives were held postoperatively. Blood pressure is still well-controlled. 7. Hyperkalemia, resolved by holding his potassium supplement.
[2020-03-27] MEDS ORDERED: VANCOMYCIN HCL 1,000 MG, VIAL MATE ADAPTER 1 EACH in D5W 250 ML IV SCH (14:30)
--- NOTE | 2020-03-27 14:33 | IPNPDOC ---
Date Seen The patient was seen on 03/27/20. Progress Note Patient seen and examined postop day #2 status post left popliteal artery and anterior tibial artery revascularization, postoperative day one status post left below-knee amputation. The patient says he is doing much better, and feels considerably better today than yesterday. I suspect this is partially due to removing the gangrenous tissue that had mostly consumed his left foot, and also because he is receiving blood transfusions today for acute on chronic anemia with baseline hemoglobin 8 down to 6.5 today likely due to acute surgical blood loss. The patient says his pain is well controlled. He says he is tolerating a diet well. On exam, his incision is clean dry and intact but he does have some erythema on the pretibial aspect of the stump as well as some mild erythema along the inferior aspect of his incision on the flap. He also has a little venous congestion in the flap but is being compliant with elevation and his Sonu wrap compression, so I'm hopeful this will improve with time. There is minimal serosanguineous drainage on his postop dressing, but otherwise everything is jorge luis an dry and intact. The jose luis and sutures are intact. I cleaned the stump thoroughly and redressed it with Xeroform, fluffs, kerlix, Sonu wrap. The patient tolerated this well. We then elevated on 3 pillows. He did very well with this dressing change. Minimal pain per the patient. He has not yet seen in physical or occupational therapy, but it is a holiday weekend. Hopefully he can start moving around a bit more later today or tomorrow. I encouraged him to eat as much protein is possible to help with healing. He will need tight glucose control. I also discussed with Dr. Chavarria that we would like to continue antibiotics a few more days due to the erythema noted around the incision, since there was such significant infection before amputation. We are hopeful that we will be able to preserve the below-knee amputation stump, as this is the best chance for the patient to ambulate as a bilateral amputee, but he is high risk for infection due to the extensive pre-op infection and diabetes. We will continue antibiotics for now. I'm very hopeful that the stump will heal well. We appreciate the opportunity to participate in the care of this patient. VS, I&O, 24H, Fishbone Vital Signs/I&O Vital Signs Date Time Temp Pulse Resp B/P (MAP) Pulse Ox O2 Delivery O2 Flow Rate FiO2 03/27/20 13:46 03/27/20 11:35 135/65 03/26/20 12:05 2 I&O- Last 24 Hours up to 6 AM 03/27/20 06:00 Intake Total 3415 ml Output Total 2675 ml Balance 740 ml Laboratory Data 24H LABS Laboratory Tests 2 03/26/20 16:35: Bedside Glucose (Misc Panel) 296H 03/26/20 20:51: Bedside Glucose (Misc Panel) 342H 03/27/20 05:21: Nucleated Red Blood Cells % (auto) 0.0, Anion Gap 5L, Glomerular Filtration Rate 59.0, Calcium Level 7.4L 03/27/20 11:20: Bedside Glucose (Misc Panel) 93 CBC/BMP Laboratory Tests 03/27/20 05:21 03/27/20 07:25 Microbiology Microbiology 03/20/20 Gram Stain - Final, Complete 03/20/20 Wound Culture - Final, Complete Streptococcus Group G 03/18/20 Blood Culture - Final, Complete NO GROWTH AFTER 5 DAYS 03/18/20 Blood Culture - Final, Complete NO GROWTH AFTER 5 DAYS SHAILESH MARADIAGA MD Mar 27, 2020 14:33
[2020-03-27] MEDS ORDERED: VANCOMYCIN HCL 750 MG, VIAL MATE ADAPTER 1 EACH in D5W 250 ML IV ONE ×2 (18:00→19:00)
[2020-03-27] MEDS: LATANOPROST 0.005% OPHTH SOLN 2.5 ML OU SCH (21:23)
[2020-03-27] MEDS: LEVEMIR (INSULIN DETEMIR) 1 UNITS/0.01ML SC SCH (21:24)
[2020-03-28] MEDS: MEROPENEM INJ 1 GM in IV 1 EA IV SCH ×2 (04:07→16:15)
[2020-03-28] MEDS: HEPARIN SOD (PORCINE) 5000UNITS/ML 1ML VIAL/SYRINGE SQ SCH ×3 (05:50→21:19)
[2020-03-28] MEDS: VANCOMYCIN HCL 750 MG, VIAL MATE ADAPTER 1 EACH in D5W 250 ML IV SCH (05:50)
[2020-03-28 06:00] VITALS: BP 149/69
[2020-03-28 06:01] LABS: HEMATOCRIT 25.1 % (42.0-52.0); MEAN CORPUSCULAR HGB CONC 31.9 g/dl (32.0-36.5); MEAN CORPUSCULAR VOLUME 90.9 fl (80.0-96.0); PLATELET COUNT, AUTOMATED 264 10^3/uL (150-450); RED BLOOD COUNT 2.76 10^6/uL (4.30-6.10); WHITE BLOOD COUNT 10.7 10^3/uL (4.0-10.0)
[2020-03-28 06:27] LABS: BLOOD UREA NITROGEN 18 MG/DL (7-18); CALCIUM LEVEL 7.8 MG/DL (8.8-10.2); CARBON DIOXIDE LEVEL 27 MEQ/L (21-32); CHLORIDE LEVEL 99 MEQ/L (98-107); CREATININE FOR GFR 1.17 MG/DL (0.70-1.30); GLOMERULAR FILTRATION RATE > 60.0 (>42); GLUCOSE, FASTING 141 MG/DL (70-100); POTASSIUM SERUM 4.2 MEQ/L (3.5-5.1); SODIUM LEVEL 132 MEQ/L (136-145)
[2020-03-28] MEDS: VANCOMYCIN HCL 500 MG in D5W MINI-BAG PLUS 100 ML IV SCH (07:03)
[2020-03-28] MEDS: ASPIRIN 81 MG ENTERIC TAB PO SCH (08:06)
[2020-03-28] MEDS: MIRALAX *UNIT DOSE* 17GM PACKET PO SCH ×2 (08:07→21:19)
[2020-03-28] MEDS: SENOKOT S TAB PO SCH ×2 (08:07→21:18)
[2020-03-28] MEDS: HumaLOG INSULIN (NovoLOG) PER UNIT SC SCH ×4 (08:07→21:18)
[2020-03-28] MEDS: BRIMONIDINE 0.1% OPHTH SOLN 5 ML OU SCH ×2 (08:07→21:19)
--- NOTE | 2020-03-28 10:47 | IPN ---
PROGRESS NOTE DATE: 03/28/2020 SUBJECTIVE: Sebas feels well. No chest pain, shortness of breath or dyspnea on exertion. He feels better since he got transfused yesterday. PHYSICAL EXAMINATION: VITAL SIGNS: Afebrile. Blood pressure 149/69. LUNGS: Clear. HEART: Regular rhythm. ABDOMEN: Soft, nontender. No bloody drainage on his bandages from his recent surgery. LABORATORY DATA: White count 10.7, hemoglobin is up to 8, platelets 264,000. Sodium 132, potassium is 4.2, BUN 18, creatinine is 1.0, glucose is 141. Blood sugars have been between 90 and 300. IMPRESSION: 1. Status post left below knee amputation, required blood transfusion yesterday. Spoke with Dr. Mcmullen. She would like him on IV antibiotics because of some redness near the surgical site and would like him treated for about a week with this. Will take him into the middle of the week before making a decision about stopping them. 2. DKA is resolved, his diabetic compliance is poor as an outpatient. Blood sugars are fluctuating between 90s to 300s here. 3. Chronic kidney disease Stage III, stable. Adjust doses of medicines based on renal function. 4. Left lower lobe infiltrate. He is on IV antibiotics which should cover this. 5. Hypertension. Blood pressure is under adequate control. 6. History of hyperkalemia, potassium levels remain acceptable.
[2020-03-28 14:00] VITALS: BP 109/51
--- NOTE | 2020-03-28 18:49 | IPNPDOC ---
Date Seen The patient was seen on 03/28/20. Progress Note Patient seen and examined postop day #3 status post left popliteal artery and anterior tibial artery revascularization, postoperative day #2 status post left below-knee amputation. The patient says still doing well today, and feels considerably better today than preop. I suspect this is partially due to removing the gangrenous tissue that had mostly consumed his left foot, and also because he is receiving blood transfusions yesterday for acute on chronic anemia with baseline hemoglobin 8 down to 6.5 today likely due to acute surgical blood loss. The patient says his pain is well controlled. He does have some muscle spasms, but says they resolved pretty quickly. He says he is tolerating a diet well. I encouraged him to eat as much protein is possible to help with healing. He will need tight glucose control. Physical therapy came today. The patient's that he sat at the edge of the bed. On exam, his incision is clean dry and intact but he does have still some erythema on the pretibial aspect of the stump as well as some mild erythema along the inferior aspect of his incision on the flap, although I think it is a little better today than yesterday. He also has a little venous congestion on the posterior flap that is also slightly improved from yesterday, and he is being compliant with elevation and his Sonu wrap compression, so I'm hopeful this will improve with time. There is minimal serosanguineous drainage on his postop dressing, but otherwise everything is clean dry and intact. The jose luis and sutures are intact. I cleaned the stump thoroughly and redressed it with Xero form, fluffs, kerlix, Sonu wrap. The patient tolerated this well. We then elevated on 3 pillows. He did very well with this dressing change. Minimal pain per the patient. Dr. Chavarria restarted antibiotics yesterday at her request, and we would like to continue this for a few more days due to the erythema noted around the incision, since there was such significant infection before amputation. We are hopeful that we will be able to preserve the below-knee amputation stump, as this is the best chance for the patient to ambulate as a bilateral amputee, but he is high risk for infection due to the extensive pre-op infection and diabetes. I'm very hopeful that the stump will heal well. We appre ciate the opportunity to participate in the care of this patient. VS, I&O, 24H, Fishbone Vital Signs/I&O Vital Signs Date Time Temp Pulse Resp B/P (MAP) Pulse Ox O2 Delivery O2 Flow Rate FiO2 03/28/20 14:00 98.0 91 17 109/51 (70) 96 Room Air 03/26/20 12:05 2 I&O- Last 24 Hours up to 6 AM 03/28/20 06:00 Intake Total 3712 ml Output Total 3200 ml Balance 512 ml Laboratory Data 24H LABS Laboratory Tests 2 03/27/20 21:17: Bedside Glucose (Misc Panel) 369H 03/28/20 05:29: Nucleated Red Blood Cells % (auto) 0.0, Anion Gap 6L, Glomerular Filtration Rate > 60.0, Calcium Level 7.8L 03/28/20 11:29: Bedside Glucose (Misc Panel) 208H 03/28/20 16:33: Bedside Glucose (Misc Panel) 265H CBC/BMP Laboratory Tests 03/28/20 05:29 Microbiology Microbiology 03/20/20 Gram Stain - Final, Complete 03/20/20 Wound Culture - Final, Complete Streptococcus Group G 03/18/20 Blood Culture - Final, Complete NO GROWTH AFTER 5 DAYS 03/18/20 Blood Culture - Final, Complete NO GROWTH AFTER 5 DAYS SHAILESH MARADIAGA MD Mar 28, 2020 18:49
[2020-03-28] MEDS: LEVEMIR (INSULIN DETEMIR) 1 UNITS/0.01ML SC SCH (21:18)
[2020-03-28] MEDS: LATANOPROST 0.005% OPHTH SOLN 2.5 ML OU SCH (21:19)
[2020-03-28 22:00] VITALS: BP 108/56
[2020-03-29] MEDS: MEROPENEM INJ 1 GM in IV 1 EA IV SCH ×2 (03:30→17:53)
[2020-03-29 05:36] LABS: HEMATOCRIT 26.8 % (42.0-52.0); HEMOGLOBIN 8.3 g/dl (13.5-17.5); MEAN CORPUSCULAR HEMOGLOBIN 28.7 pg (27.0-33.0); MEAN CORPUSCULAR VOLUME 92.7 fl (80.0-96.0); PLATELET COUNT, AUTOMATED 302 10^3/uL (150-450); RED BLOOD COUNT 2.89 10^6/uL (4.30-6.10)
[2020-03-29 06:00] VITALS: BP 118/60
[2020-03-29 06:05] LABS: BLOOD UREA NITROGEN 21 MG/DL (7-18); CALCIUM LEVEL 8.2 MG/DL (8.8-10.2); CARBON DIOXIDE LEVEL 32 MEQ/L (21-32); CHLORIDE LEVEL 101 MEQ/L (98-107); CREATININE FOR GFR 1.25 MG/DL (0.70-1.30); GLOMERULAR FILTRATION RATE > 60.0 (>42); GLUCOSE, FASTING 69 MG/DL (70-100); POTASSIUM SERUM 4.1 MEQ/L (3.5-5.1); SODIUM LEVEL 135 MEQ/L (136-145); VANCOMYCIN LEVEL TROUGH 15.6 UG/ML (10.0-20.0)
[2020-03-29] MEDS: VANCOMYCIN HCL 750 MG, VIAL MATE ADAPTER 1 EACH in D5W 250 ML IV SCH (06:16)
[2020-03-29] MEDS: HEPARIN SOD (PORCINE) 5000UNITS/ML 1ML VIAL/SYRINGE SQ SCH ×3 (06:18→21:18)
[2020-03-29] MEDS: VANCOMYCIN HCL 500 MG in D5W MINI-BAG PLUS 100 ML IV SCH (07:28)
[2020-03-29] MEDS: HumaLOG INSULIN (NovoLOG) PER UNIT SC SCH ×4 (07:30→21:19)
[2020-03-29] MEDS: BRIMONIDINE 0.1% OPHTH SOLN 5 ML OU SCH ×2 (09:04→21:18)
[2020-03-29] MEDS: SENOKOT S TAB PO SCH ×2 (09:04→21:00)
[2020-03-29] MEDS: ASPIRIN 81 MG ENTERIC TAB PO SCH (09:04)
[2020-03-29] MEDS: MIRALAX *UNIT DOSE* 17GM PACKET PO SCH ×2 (09:04→21:00)
[2020-03-29 14:00] VITALS: BP 113/84
--- NOTE | 2020-03-29 14:03 | IPN ---
PROGRESS NOTE DATE: 03/29/2020 SUBJECTIVE: No real change in Sebas today. No chest pain, shortness of breath, or dyspnea on exertion. Blood pressure is well controlled at 118/60. His hemoglobin is stable after transfusion. PHYSICAL EXAMINATION: Vital signs: Stable. General appearance: Alert, conversant, no distress. Lungs: Clear. Heart: Regular rate and rhythm. Abdomen: Soft, nontender. No bleeding from the amputation site. LABS: Hemoglobin is stable at 8.3. BMP unremarkable. Blood sugars are elevated. IMPRESSION: 1. Diabetes. We will increase the dose of his evening Detemir insulin to a sliding scale coverage. 2. Postop anemia. Hemoglobin is stable. Would check this daily. 3. Status post left BKA. Surgery would like him to be on IV antibiotics into the mid week so we will continue these through Monday and then hopefully we will have a disposition for him.
[2020-03-29] MEDS: LATANOPROST 0.005% OPHTH SOLN 2.5 ML OU SCH (21:18)
[2020-03-29] MEDS: LEVEMIR (INSULIN DETEMIR) 1 UNITS/0.01ML SC SCH (21:20)
[2020-03-29 22:00] VITALS: BP 114/52
[2020-03-30] MEDS: MEROPENEM INJ 1 GM in IV 1 EA IV SCH ×2 (03:00→16:10)
[2020-03-30] MEDS: HEPARIN SOD (PORCINE) 5000UNITS/ML 1ML VIAL/SYRINGE SQ SCH ×3 (05:22→21:15)
[2020-03-30] MEDS: VANCOMYCIN HCL 750 MG, VIAL MATE ADAPTER 1 EACH in D5W 250 ML IV SCH (05:30)
[2020-03-30 06:00] VITALS: BP 113/47
[2020-03-30] MEDS: VANCOMYCIN HCL 500 MG in D5W MINI-BAG PLUS 100 ML IV SCH (06:33)
[2020-03-30 06:59] LABS: BLOOD UREA NITROGEN 21 MG/DL (7-18); CALCIUM LEVEL 8.3 MG/DL (8.8-10.2); CARBON DIOXIDE LEVEL 32 MEQ/L (21-32); CHLORIDE LEVEL 100 MEQ/L (98-107); CREATININE FOR GFR 1.25 MG/DL (0.70-1.30); GLOMERULAR FILTRATION RATE > 60.0 (>42); GLUCOSE, FASTING 152 MG/DL (70-100); POTASSIUM SERUM 4.8 MEQ/L (3.5-5.1); SODIUM LEVEL 135 MEQ/L (136-145)
[2020-03-30 07:02] LABS: HEMATOCRIT 26.5 % (42.0-52.0); MEAN CORPUSCULAR HGB CONC 30.2 g/dl (32.0-36.5); MEAN CORPUSCULAR VOLUME 92.7 fl (80.0-96.0); PLATELET COUNT, AUTOMATED 397 10^3/uL (150-450); RED BLOOD COUNT 2.86 10^6/uL (4.30-6.10); WHITE BLOOD COUNT 6.3 10^3/uL (4.0-10.0)
--- NOTE | 2020-03-30 07:34 | IPNPDOC ---
Date Seen The patient was seen on 03/30/20. Progress Note Patient seen and examined postop day #4 status post left popliteal artery and anterior tibial artery revascularization, postoperative day #3 status post left below-knee amputation. The patient says still doing well today. The patient says his pain is well controlled. He does have some muscle spasms, but says they resolve pretty quickly. He says he is tolerating a diet well. I encouraged him to eat as much protein is possible to help with healing. He will need tight glucose control. Physical therapy continues to work with patient. YUNIEL prasad pending. On exam, his incision is clean dry and intact and the erythema on the pretibial aspect of the stump as well as along the inferior aspect of his incision on the flap is definitely improved today. He also has a little venous congestion on the posterior flap that is also much improved today, and he is being compliant with elevation and his Sonu wrap compression, so I'm hopeful this will continue to resolve with time. There is no drainage on his dressing, and everything is clean dry and intact. The jose luis and sutures are intact. I cleaned the stump thoroughly and redressed it with Xeroform, fluffs, kerlix, Sonu wrap. The patient tolerated this well. We then elevated on 3 pillows. He did very well with this dressing change. Minimal pain per the patient. Dr. Chavarria restarted antibiotics at our request, and we would like to continue this for a few more days due to the erythema noted around the incision, and since there was such si gnificant infection before amputation. We are hopeful that we will be able to preserve the below-knee amputation stump, as this is the best chance for the patient to ambulate as a bilateral amputee, but he is high risk for infection due to the extensive pre-op infection and diabetes. I'm very hopeful that the stump will heal well. We appreciate the opportunity to participate in the care of this patient. VS, I&O, 24H, Fishbone Vital Signs/I&O Vital Signs Date Time Temp Pulse Resp B/P (MAP) Pulse Ox O2 Delivery O2 Flow Rate FiO2 03/30/20 06:00 98.5 72 18 113/47 (69) 95 Room Air 03/26/20 12:05 2 I&O- Last 24 Hours up to 6 AM 03/30/20 06:00 Intake Total 1923 ml Output Total 2975 ml Balance -1052 ml Laboratory Data 24H LABS Laboratory Tests 2 03/29/20 11:32: Bedside Glucose (Misc Panel) 375H 03/29/20 17:13: Bedside Glucose (Misc Panel) 296H 03/29/20 20:52: Bedside Glucose (Misc Panel) 272H 03/30/20 05:30: Nucleated Red Blood Cells % (auto) 0.0, Anion Gap 3L, Glomerular Filtration Rate > 60.0, Calcium Level 8.3L CBC/BMP Laboratory Tests 03/30/20 05:30 Microbiology Microbiology 03/20/20 Gram Stain - Final, Complete 03/20/20 Wound Culture - Final, Complete Streptococcus Group G SHAILESH MARADIAGA MD Mar 30, 2020 07:34
[2020-03-30] MEDS: HumaLOG INSULIN (NovoLOG) PER UNIT SC SCH ×4 (07:58→21:13)
[2020-03-30] MEDS: MIRALAX *UNIT DOSE* 17GM PACKET PO SCH ×2 (07:58→21:00)
[2020-03-30] MEDS: ASPIRIN 81 MG ENTERIC TAB PO SCH (07:58)
[2020-03-30] MEDS: SENOKOT S TAB PO SCH ×2 (07:59→21:00)
[2020-03-30] MEDS: BRIMONIDINE 0.1% OPHTH SOLN 5 ML OU SCH ×2 (07:59→21:14)
--- NOTE | 2020-03-30 09:15 | DSES ---
DISCHARGE SUMMARY DATE OF ADMISSION: 03/18/2020 DATE OF DISCHARGE: 03/30/2020 ADMISSION DIAGNOSIS: Left below-knee amputation for ischemic left lower extremity. PROCEDURE PERFORMED: Left below-knee amputation, left popliteal artery and anterior tibial artery revascularization by Dr. Mcmullen. SECONDARY DIAGNOSES: 1. Peripheral artery disease. 2. Diabetic ketoacidosis, resolved. 3. Type 1 diabetes noncompliant with poor control. 4. Chronic kidney disease stage III. 5. Left lower lobe pneumonia community-acquired. 6. Iron deficiency anemia. 7. Hypertensive heart disease. 8. Hyperkalemia. HISTORY: Sebas Knott was a patient of Cathleen Steen of the [facility], who dropped a heavy box on his left foot causing trauma to the left foot. A week later, he presented with an infection in that foot and was admitted for further treatment. He was found initially to be in DKA and had osteomyelitis with left lower leg cellulitis and was in acute kidney injury. HOSPITAL COURSE: He was treated with IV antibiotics and he failed to respond to this. He was seen by general surgery and then vascular surgery. Attempt at revascularization occurred. He ultimately underwent below-knee amputation. He had some signs of infection postoperatively and recommendation was to continue antibiotics, which we had done. He had some acute blood loss anemia and required transfusion. Today, he has been seen by Dr. Mcmullen who thinks that the wound is healing well. He recommended continued IV antibiotics for a few more days. He feels the patient is progressive and should be stable for rehab. SIGNIFICANT LABORATORY DATA: Today white count 6.3, hemoglobin 8, platelets 397,000. Sodium 133, potassium 4.8, BUN 21, creatinine 1.2, glucose 152. COVID was negative. DISCHARGE DISPOSITION: He is discharged to acute rehabilitation unit (ARU). He will follow-up with Cathleen Steen his primary care provider after discharge. DISCHARGE ACTIVITY: As tolerated. DISCHARGE DIET: He will continue with consistent carbohydrate, no added salt, low-fat and cholesterol diet. DISCHARGE FOLLOW-UP: He will follow-up with Dr. Mcmullen per her office. DISCHARGE MEDICATIONS: Currently are - detemir insulin 3 units at bedtime - vancomycin dosing per clinical pharmacology - meropenem 1 gram IV q. 12 hours - various eye drops - sliding scale insulin per protocol - MiraLAX one capful b.i.d. - Ecotrin 81 mg daily - Tylenol p.r.n. for pain - Percocet 5/325 q. 4 hours p.r.n. for pain At the time of this dictation, there are no pending labs.
[2020-03-30] MEDS ORDERED: CLOPIDOGREL 75 MG TAB PO ONE (09:26)
[2020-03-30 14:00] VITALS: BP 108/45
[2020-03-30] MEDS: LATANOPROST 0.005% OPHTH SOLN 2.5 ML OU SCH (21:14)
[2020-03-30] MEDS: LEVEMIR (INSULIN DETEMIR) 1 UNITS/0.01ML SC SCH (21:14)
[2020-03-30 22:00] VITALS: BP 136/61
[2020-03-31] MEDS: MEROPENEM INJ 1 GM in IV 1 EA IV SCH ×2 (03:52→15:19)
[2020-03-31 05:28] LABS: HEMATOCRIT 25.5 % (42.0-52.0); HEMOGLOBIN 7.6 g/dl (13.5-17.5); MEAN CORPUSCULAR HEMOGLOBIN 27.6 pg (27.0-33.0); MEAN CORPUSCULAR HGB CONC 29.8 g/dl (32.0-36.5); MEAN CORPUSCULAR VOLUME 92.7 fl (80.0-96.0); PLATELET COUNT, AUTOMATED 383 10^3/uL (150-450); RED BLOOD COUNT 2.75 10^6/uL (4.30-6.10); WHITE BLOOD COUNT 5.8 10^3/uL (4.0-10.0)
[2020-03-31] MEDS: VANCOMYCIN HCL 750 MG, VIAL MATE ADAPTER 1 EACH in D5W 250 ML IV SCH (05:33)
[2020-03-31] MEDS: HEPARIN SOD (PORCINE) 5000UNITS/ML 1ML VIAL/SYRINGE SQ SCH ×3 (05:33→21:30)
[2020-03-31 06:00] VITALS: BP 129/57
[2020-03-31 06:02] LABS: BLOOD UREA NITROGEN 22 MG/DL (7-18); CALCIUM LEVEL 7.8 MG/DL (8.8-10.2); CARBON DIOXIDE LEVEL 32 MEQ/L (21-32); CHLORIDE LEVEL 102 MEQ/L (98-107); CREATININE FOR GFR 1.17 MG/DL (0.70-1.30); GLOMERULAR FILTRATION RATE > 60.0 (>42); GLUCOSE, FASTING 139 MG/DL (70-100); POTASSIUM SERUM 4.6 MEQ/L (3.5-5.1); SODIUM LEVEL 136 MEQ/L (136-145); VANCOMYCIN LEVEL TROUGH 14.9 UG/ML (10.0-20.0)
[2020-03-31] MEDS: VANCOMYCIN HCL 500 MG in D5W MINI-BAG PLUS 100 ML IV SCH (07:50)
[2020-03-31] MEDS: ASPIRIN 81 MG ENTERIC TAB PO SCH (07:51)
[2020-03-31] MEDS: HumaLOG INSULIN (NovoLOG) PER UNIT SC SCH ×4 (07:51→21:28)
[2020-03-31] MEDS: CLOPIDOGREL 75 MG TAB PO SCH (07:51)
[2020-03-31] MEDS: SENOKOT S TAB PO SCH ×2 (07:52→21:29)
[2020-03-31] MEDS: MIRALAX *UNIT DOSE* 17GM PACKET PO SCH ×2 (07:52→21:31)
[2020-03-31] MEDS: BRIMONIDINE 0.1% OPHTH SOLN 5 ML OU SCH ×2 (07:52→21:30)
[2020-03-31 13:48] VITALS: BP 128/48
[2020-03-31] MEDS: LEVEMIR (INSULIN DETEMIR) 1 UNITS/0.01ML SC SCH (21:28)
[2020-03-31] MEDS: LATANOPROST 0.005% OPHTH SOLN 2.5 ML OU SCH (21:30)
[2020-03-31 22:00] VITALS: BP 128/57
[2020-04-01] MEDS: KETOCONAZOLE 2% CREAM TOP SCH ×3 (00:22→21:12)
[2020-04-01] MEDS: MEROPENEM INJ 1 GM in IV 1 EA IV SCH ×2 (04:25→16:11)
[2020-04-01 05:26] LABS: HEMATOCRIT 29.8 % (42.0-52.0); MEAN CORPUSCULAR HEMOGLOBIN 28.5 pg (27.0-33.0); MEAN CORPUSCULAR HGB CONC 30.2 g/dl (32.0-36.5); MEAN CORPUSCULAR VOLUME 94.3 fl (80.0-96.0); PLATELET COUNT, AUTOMATED 461 10^3/uL (150-450); RED BLOOD COUNT 3.16 10^6/uL (4.30-6.10); WHITE BLOOD COUNT 6.1 10^3/uL (4.0-10.0)
[2020-04-01 05:59] LABS: BEDSIDE GLUCOSE CONFIRMATION 70 MG/DL (LESS THAN 200); BLOOD UREA NITROGEN 23 MG/DL (7-18); CALCIUM LEVEL 8.3 MG/DL (8.8-10.2); CARBON DIOXIDE LEVEL 32 MEQ/L (21-32); CHLORIDE LEVEL 103 MEQ/L (98-107); CREATININE FOR GFR 1.19 MG/DL (0.70-1.30); GLOMERULAR FILTRATION RATE > 60.0 (>42); GLUCOSE, FASTING 70 MG/DL (70-100); POTASSIUM SERUM 4.3 MEQ/L (3.5-5.1); SODIUM LEVEL 140 MEQ/L (136-145)
[2020-04-01 06:00] VITALS: BP 123/58
[2020-04-01] MEDS: VANCOMYCIN HCL 750 MG, VIAL MATE ADAPTER 1 EACH in D5W 250 ML IV SCH (06:17)
[2020-04-01] MEDS: HEPARIN SOD (PORCINE) 5000UNITS/ML 1ML VIAL/SYRINGE SQ SCH ×3 (06:19→21:12)
[2020-04-01] MEDS: HumaLOG INSULIN (NovoLOG) PER UNIT SC SCH ×3 (07:16→17:23)
[2020-04-01] MEDS: VANCOMYCIN HCL 500 MG in D5W MINI-BAG PLUS 100 ML IV SCH (07:35)
[2020-04-01] MEDS: MIRALAX *UNIT DOSE* 17GM PACKET PO SCH ×2 (09:00→21:00)
[2020-04-01] MEDS: BRIMONIDINE 0.1% OPHTH SOLN 5 ML OU SCH ×2 (09:43→21:11)
[2020-04-01] MEDS: CLOPIDOGREL 75 MG TAB PO SCH (09:43)
[2020-04-01] MEDS: SENOKOT S TAB PO SCH ×2 (09:43→21:10)
[2020-04-01] MEDS: ASPIRIN 81 MG ENTERIC TAB PO SCH (09:43)
--- NOTE | 2020-04-01 10:15 | IPNPDOC ---
Text Note Date of Service The patient was seen on 04/01/20. NOTE Vascular surgery. Dr. Mcmullen Patient seen and examined status post left popliteal artery and anterior tibial artery revascularization 03/25/[address] Mcmullen, S/P status post left below-knee amputation 03/26/[address] Mcmullen. The patient says still doing well today. The patient says his pain is well controlled. He states he is eating well. On exam, his incision is clean dry and intact. There is some erythema on the pretibial aspect of the stump as well as along the inferior aspect of his incision, does not appear to be worsening. There is no drainage on his dressing, and everything is clean dry and intact. The jose luis and sutures are intact. I cleaned the stump thoroughly and redressed it with Xeroform, fluffs, kerlix, Sonu wrap. The patient tolerated this well. Continue to elevate. Currently remains on IV antibiotics, he is high risk for infection due to the extensive pre-op infection and diabetes. Continues to closely monitor healing. We appreciate the opportunity to participate in the care of this patient. VS,Miguelbone, I+O VS, Miguelbone, I+O Laboratory Tests 04/01/20 05:19 Vital Signs Date Time Temp Pulse Resp B/P (MAP) Pulse Ox O2 Delivery O2 Flow Rate FiO2 04/01/20 06:00 97.6 80 18 123/58 (79) 98 Room Air 03/26/20 12:05 2 I&O- Last 24 Hours up to 6 AM 04/01/20 06:00 Intake Total 2950 ml Output Total 4400 ml Balance -1450 ml Brigitte Prado Apr 01, 2020 10:15
--- NOTE | 2020-04-01 10:22 | IPNPDOC ---
Date Seen The patient was seen on 03/31/20. Progress Note This note is for 03/31/2020 Patient seen and examined postop day #5 status post left popliteal artery and anterior tibial artery revascularization, postoperative day #4 status post left below-knee amputation. The patient says still doing well today. The patient says his pain is well controlled. He does have some muscle spasms, but says they resolve pretty quickly. He says he is tolerating a diet well. I encouraged him to eat as much protein is possible to help with healing. He will need tight glucose control. Physical therapy continues to work with patient. ARU acceptance pending insurance approval P On exam, his incision is clean dry and intact and the erythema on the pretibial aspect of the stump as well as along the inferior aspect of his incision on the flap is definitely improved today. He also has a little venous congestion on the posterior flap that is improving daily, and he is being compliant with elevation and his Sonu wrap compression, so I'm hopeful this will continue to resolve with time. There is no drainage on his dressing, and everything is clean dry and intact. The jose luis and sutures are intact. I cleaned the stump thoroughly and redressed it with Xeroform, fluffs, kerlix, Sonu wrap. The patient tolerated this well. We then elevated on 3 pillows. He is doing well with knee extension to prevent contracture. He did very well with this dressing change. Minimal pain per the patient. Dr. Chavarria restarted antibiotics at our request, and we would like to continue this for a few more days due to the erythema noted around the incision, and since there was such significant infection before amputation. We are hopeful that we will be able to preserve the below-knee amputation stump, as this is the best chance for the patient to ambulate as a bilateral amputee, but he is high risk for infection due to the extensive pre-op infection and diabetes. I'm very hopeful that the stump will heal well. We appreciate the opportunity to participate in the care of this patient. VS, I&O, 24H, Fishbone Vital Signs/I&O Vital Signs Date Time Temp Pulse Resp B/P (MAP) Pulse Ox O2 Delivery O2 Flow Rate FiO2 04/01/20 06:00 97.6 80 18 123/58 (79) 98 Room Air 03/26/20 12:05 2 I&O- Last 24 Hours up to 6 AM 04/01/20 06:00 Intake Total 2950 ml Output Total 4400 ml Balance -1450 ml Laboratory Data 24H LABS Laboratory Tests 2 03/31/20 11:43: Bedside Glucose (Misc Panel) 244H 03/31/20 17:10: Bedside Glucose (Misc Panel) 228H 03/31/20 19:57: Bedside Glucose (Misc Panel) 286H 04/01/20 05:03: Bedside Glucose (Misc Panel) 45L 04/01/20 05:19: Nucleated Red Blood Cells % (auto) 0.0, Bedside Glucose Confirm (Misc) 70, Anion Gap 5L, Glomerular Filtration Rate > 60.0, Calcium Level 8.3L 04/01/20 05:27: Bedside Glucose (Misc Panel) 86 CBC/BMP Laboratory Tests 04/01/20 05:19 SHAILESH MARADIAGA MD Apr 01, 2020 10:22
--- NOTE | 2020-04-01 12:09 | IPN ---
PROGRESS NOTE DATE: 04/01/2020 SUBJECTIVE: We are waiting for Sebas to be cleared for ARU. He has developed what looks like a fungal rash. I put him on some topical ketoconazole and today, the rash is much less red and pruritic, so he seems to be responding well to this. OBJECTIVE: VITAL SIGNS: Stable, blood pressure 123/58. LUNGS: Clear. HEART: Rhythm regular. ABDOMEN: Soft and nontender. EXTREMITIES: His bandages are clean and dry. LABORATORY DATA: Electrolytes unremarkable. Hemoglobin stable at 9. His blood sugar was 45 this morning. IMPRESSION: 1. Hypoglycemia. I will reduce the dose of his basal insulin from 30 to 20 units at bedtime and discontinue his h.s. insulin. 2. Intertrigo. Continue his ketoconazole 2% cream. 3. Postoperative anemia. Hemoglobin is stable. Continue his aspirin 81 mg daily. 4. Wound infection. Infectious disease would like him on meropenem and vancomycin through the end of the week. These can be discontinued on Monday if vascular surgery feels that his wounds have sufficiently recovered. 5. Peripheral arterial disease. He is on aspirin and Plavix, and he needs to continue both of these. Dr. Mcmullen has been attending to him and I appreciate her input. I reviewed the vascular surgery note for today and plans are to continue intravenous antibiotics at this point. I think making a decision about stopping these Monday seems reasonable, with the input of vascular surgery.
[2020-04-01 14:00] VITALS: BP 115/59
[2020-04-01] MEDS ORDERED: LEVEMIR (INSULIN DETEMIR) 1 UNITS/0.01ML SC SCH (21:00)
[2020-04-01] MEDS: LATANOPROST 0.005% OPHTH SOLN 2.5 ML OU SCH (21:11)
[2020-04-01 22:00] VITALS: BP 127/62
[2020-04-02] MEDS: MEROPENEM INJ 1 GM in IV 1 EA IV SCH (03:11)
[2020-04-02] MEDS: HEPARIN SOD (PORCINE) 5000UNITS/ML 1ML VIAL/SYRINGE SQ SCH ×2 (05:23→13:50)
[2020-04-02] MEDS: VANCOMYCIN HCL 750 MG, VIAL MATE ADAPTER 1 EACH in D5W 250 ML IV SCH (05:31)
[2020-04-02 05:54] LABS: HEMATOCRIT 29.1 % (42.0-52.0); HEMOGLOBIN 8.7 g/dl (13.5-17.5); MEAN CORPUSCULAR HEMOGLOBIN 27.7 pg (27.0-33.0); MEAN CORPUSCULAR HGB CONC 29.9 g/dl (32.0-36.5); MEAN CORPUSCULAR VOLUME 92.7 fl (80.0-96.0); PLATELET COUNT, AUTOMATED 483 10^3/uL (150-450); RED BLOOD COUNT 3.14 10^6/uL (4.30-6.10); WHITE BLOOD COUNT 5.3 10^3/uL (4.0-10.0)
[2020-04-02 06:00] VITALS: BP 121/56
[2020-04-02 06:19] LABS: BLOOD UREA NITROGEN 30 MG/DL (7-18); CALCIUM LEVEL 8.3 MG/DL (8.8-10.2); CARBON DIOXIDE LEVEL 31 MEQ/L (21-32); CHLORIDE LEVEL 101 MEQ/L (98-107); CREATININE FOR GFR 1.14 MG/DL (0.70-1.30); GLOMERULAR FILTRATION RATE > 60.0 (>42); GLUCOSE, FASTING 193 MG/DL (70-100); POTASSIUM SERUM 4.6 MEQ/L (3.5-5.1); SODIUM LEVEL 136 MEQ/L (136-145)
[2020-04-02] MEDS: VANCOMYCIN HCL 500 MG in D5W MINI-BAG PLUS 100 ML IV SCH (06:32)
[2020-04-02] MEDS: ASPIRIN 81 MG ENTERIC TAB PO SCH (08:11)
[2020-04-02] MEDS: BRIMONIDINE 0.1% OPHTH SOLN 5 ML OU SCH (08:11)
[2020-04-02] MEDS: CLOPIDOGREL 75 MG TAB PO SCH (08:11)
[2020-04-02] MEDS: HumaLOG INSULIN (NovoLOG) PER UNIT SC SCH ×2 (08:11→12:31)
[2020-04-02] MEDS: SENOKOT S TAB PO SCH (08:11)
[2020-04-02] MEDS: MIRALAX *UNIT DOSE* 17GM PACKET PO SCH (08:11)
[2020-04-02] MEDS: KETOCONAZOLE 2% CREAM TOP SCH (08:12)
[2020-04-02] MEDS ORDERED: VANC1INJ37 IV (11:39)
[2020-04-02] MEDS ORDERED: [UNRECOGNIZED DRUG - CODE] IV (11:39)
[2020-04-02] MEDS ORDERED: CLOP75TA2 PO (11:39)
[2020-04-02] MEDS ORDERED: ASPI81TAEC PO (11:39)
[2020-04-02] MEDS ORDERED: KETO2CR TOP (11:39)
[2020-04-02] MEDS ORDERED: VANC750P8 IV (11:39)
[2020-04-02] MEDS ORDERED: SENN-52 PO (11:39)
--- NOTE | 2020-04-03 02:43 | DS.PDOC ---
Discharge Summary General Date of Admission Mar 18, 2020 at 22:14 Date of Discharge April 02, 2020 Specialist/Consultants Involve Vascular surgery, Dr. Mcmullen General surgery, Dr. Newton and Dr. Ramsey Discharge Summary PROCEDURES PERFORMED DURING STAY: Left below the knee amputation, Left popliteal artery and anterior tibial artery revascularization ADMITTING DIAGNOSES: 1. Peripheral arterial disease 2. Diabetic ketoacidosis, resolved 3. Insulin dependent diabetes mellitus, poorly controlled 4. CKD stage III 5. Left lower lobe pneumonia (CAP) 6. Iron deficiency anemia 7. Hypertension 8. Hyperkalemia DISCHARGE DIAGNOSES: 1. Peripheral arterial disease 2. Diabetic ketoacidosis, resolved 3. Insulin dependent diabetes mellitus, poorly controlled 4. CKD stage III 5. Left lower lobe pneumonia (CAP) 6. Iron deficiency anemia 7. Hypertension 8. Hyperkalemia 9. Osteomyelitis of left foot, dry gangrene of left foot COMPLICATIONS/CHIEF COMPLAINT: Dka Type 1,Osteomyelitis Of L Foot. HISTORY OF PRESENT ILLNESS: Mr. Knott is a 74 year old male with type 1 diabetes mellitus and PAD who is here after trauma to left foot. About a week prior to admission, he had dropped a heavy box on his left foot. Ever since then he had a dull, 4/10 pain in his left foot. He came to the ED for evaluation. Otherwise, he reported occasionally forgetting to take his medication. He has been experiencing polydipsia. Patient was admitted for DKA, cellulitis/osteomyelitis/dry gangrene of left foot, and left lower lobe pneumonia. HOSPITAL COURSE: DKA resolved. General surgery was initially consulted for the left foot, but they recommended vascular surgery to evaluate the patient. In the mean time, patient was managed with broad spectrum IV antibiotics (Vancomycin and meropenem), but there was no improvement. Patient underwent left BKA on 03/30/2020. Afterwards, Vascular surgery requested that we continue antibiotics until 04/03/2020. This morning, patient felt well. Denied any fever, chest pain, dyspnea, or abdominal pain. He felt ready and was subsequently sent to ARU. DISCHARGE MEDICATIONS: Please see below. ALLERGIES: Please see below. PHYSICAL EXAMINATION ON DISCHARGE: VITAL SIGNS: Please see below. GENERAL: Comfortable, in no apparent distress HEENT: Head normocephalic, atraumatic, EOMI, sclera clear NECK: Supple CARDIOVASCULAR EXAMINATION: Regular rate and rhythm RESPIRATORY EXAMINATION: Lungs clear to auscultation bilaterally ABDOMINAL EXAMINATION: Soft, nontender, normal bowel sounds EXTREMITIES: Bilateral BKA SKIN: Warm and dry NEUROLOGICAL EXAMINATION: CN 3-12 grossly intact PSYCHIATRIC EXAMINATION: Normal mood and affect LABORATORY DATA: Please see below. IMAGING: (Radiologist interpretation) XR left foot, 03/18/2020 Significant subcutaneous emphysema consistent with underlying infectious process and ulceration. Osteomyelitis involving the 5th toe cannot be excluded. CXR 03/18/2020 Questionable left lower lobe infiltrate. Bilateral lower extremity arterial study 03/23/2020 Marked atheromatous changes with evidence for right distal superficial femoral artery occlusion and areas of stenosis through the left profundus, superficial femoral artery, popliteal artery, and anterior tibial artery. PROGNOSIS: Good. ACTIVITY: As tolerated. DIET: Carbohydrate consistent diet DISCHARGE PLAN: ARU DISPOSITION: 62 D/T Rehab Facility. DISCHARGE INSTRUCTIONS: 1. Follow up with physician at ARU 2. On discharge from ARU, follow up with PCP 3. On discharge from ARU, follow up with vascular surgery DISCHARGE CONDITION: Stable. Total time spent on discharge planning, discharge summary, and medication reconciliation: 45 minutes Vital Signs/I&Os Vital Signs Date Time Temp Pulse Resp B/P (MAP) Pulse Ox O2 Delivery O2 Flow Rate FiO2 04/02/20 06:00 97.0 77 17 121/56 (77) 96 Room Air I&O- Last 24 Hours up to 6 AM 04/03/20 06:00 Intake Total 885 ml Output Total 0 ml Balance 885 ml Laboratory Data Labs 24H Laboratory Tests 2 04/02/20 05:28: Nucleated Red Blood Cells % (auto) 0.0, Anion Gap 4L, Glomerular Filtration Rate > 60.0, Calcium Level 8.3L 04/02/20 11:26: Bedside Glucose (Misc Panel) 324H CBC/BMP Laboratory Tests 04/02/20 05:28 FSBS Laboratory Tests Test 04/02/20 11:26 Range/Units Bedside Glucose (Misc Panel) 324 83-110 MG/DL Discharge Medications Scheduled Aspirin (Aspirin EC) 81 Mg Tablet., 81 MG PO QAM Brimonidine Tartrate (Alphagan P) 100 Drop/5 Ml Soln, 1 DROP OU BID, (Reported) Clopidogrel Bisulfate (Clopidogrel) 75 Mg Tablet, 75 MG PO DAILY Ezetimibe (Ezetimibe) 10 Mg Tab, 10 MG PO DAILY, (Reported) Insulin Detemir (Levemir) 100 Unit/1 Ml Vial, 40 UNITS SC QHS, (Reported) Insulin Human Lispro (Humalog) 100 Unit/1 Ml Vial, 1 DOSE SC AC, (Reported) PER SLIDING SCALE Ketoconazole (Ketoconazole) 15 Gm Cream..g., 0 DOSE TOP BID Latanoprost (Xalatan) 0.005% 2.5ML Drops, 1 DROP OU QHS, (Reported) Meropenem (Merrem) 1 Gm Vial, 1 GM IV Q12H Multivitamin with Iron (Tab-A-Bharath with Iron) 1 Tab Tab, 1 TAB PO DAILY, (Reported) Sennosides/Docusate Sodium (Senna Plus Tablet) 1 Each Tablet, 2 TAB PO BID Vancomycin/0.9 % Sod Chloride (Vanco 500 mg/100 ml-0.9% NaCl) 500 Mg/100 Ml Froz.piggy, 1 INJ IV Q24H Vancomycin/Water For Inj (Peg) (Vancomycin 750 mg/150 ml Bag) 750 Mg/150 Ml Piggyback, 750 MG IV Q24H Scheduled PRN Acetaminophen (Tylenol Extra Strength) 500 Mg Tablet, 1,000 MG PO Q6H PRN for PAIN / FEVER, (Reported) Allergies Coded Allergies: Penicillins (Verified Allergy, Mild, rash, 10/14/18) DUNIA SKELTON DO Apr 03, 2020 02:43
== END 2020-04-02 14:08 | DRG 616 ==
LOC: M ED 18:56 → M ED INP 22:14 → M MSPAV 03-19 13:45
PROVIDERS: ADMIT Internal Medicine; ATTEND Family Medicine
PROC: 047K3ZZ Dilation of Right Femoral Artery, Percutaneous Approach (ICD-10-PCS; 2020-03-25)
PROC: 047M3ZZ Dilation of Right Popliteal Artery, Percutaneous Approach (ICD-10-PCS; 2020-03-25)
PROC: 047T3ZZ Dilation of Right Peroneal Artery, Percutaneous Approach (ICD-10-PCS; 2020-03-25)
PROC: B41FYZZ Fluoroscopy of Right Lower Extremity Arteries using Other Contrast (ICD-10-PCS; 2020-03-25)
PROC: 0Y6J0Z3 Detachment at Left Lower Leg, Low, Open Approach (ICD-10-PCS; principal; 2020-03-26 08:30)
PROC: 30233N1 Transfusion of Nonautologous Red Blood Cells into Peripheral Vein, Percutaneous Approach (ICD-10-PCS; 2020-03-27)
DX: E10.10 Type 1 diabetes mellitus with ketoacidosis without coma (principal); J18.9 Pneumonia, unspecified organism; E10.52 Type 1 diabetes mellitus with diabetic peripheral angiopathy with gangrene; L97.929 Non-pressure chronic ulcer of unspecified part of left lower leg with unspecified severity; M86.172 Other acute osteomyelitis, left ankle and foot; N17.9 Acute kidney failure, unspecified; E10.621 Type 1 diabetes mellitus with foot ulcer; N18.30 Chronic kidney disease, stage 3 unspecified; Z79.4 Long term (current) use of insulin; I12.9 Hypertensive chronic kidney disease with stage 1 through stage 4 chronic kidney disease, or unspecified chronic kidney disease; E87.5 Hyperkalemia; D50.9 Iron deficiency anemia, unspecified; Z79.82 Long term (current) use of aspirin; Z79.899 Other long term (current) drug therapy; Z88.0 Allergy status to penicillin; Z89.611 Acquired absence of right leg above knee

== ENCOUNTER 2020-03-30 11:30 | Inpatient (IN) | payer OTHER ==
[~2020-03-30] VITALS: Ht 170.2 cm; Wt 73.0 kg
[~2020-03-30 11:30] MED LIST changes: +ACET-897 PO; +HYDR-3490 PO; -HYDR25TAB PO; +INSUHUMDS SC; -LISI-538 PO; +LISI10TA22 PO; -LISI10TA4 PO; +LISI20TA33 PO; +XALA0.007 OU
--- NOTE | 2020-03-31 10:47 | IPN ---
PROGRESS NOTE DATE: 03/31/2020 SUBJECTIVE: Sebas is waiting to go to ARU. He is still on IV antibiotics. His hemoglobin has remained stable. No chest pain, shortness of breath, fever, or chills. He developed a rash that is mostly in his inguinal creases and still some on the bottom of his left thigh and his back. OBJECTIVE: VITAL SIGNS: Afebrile, vital signs stable. LUNGS: Clear. HEART: Regular rhythm. ABDOMEN: Soft and nontender. EXTREMITIES: Erythema rash in the inguinal creases behind the left thigh and the rash on his back is almost gone. LABORATORY DATA: White count 5.8, hemoglobin 7.6, platelets 383,000. Sodium 136, potassium 4.6, BUN 22, creatinine 1.1, glucose 139. IMPRESSION: 1. Rash. This looks like a fungal rash. I have ordered topical treatment of ketoconazole 2% cream applied twice a day. 2. Status post left below-knee amputation (BKA) with postoperative anemia. His hemoglobin is a little lower today. Daily labs have been ordered. He might need another blood transfusion. 3. Diabetes. Sliding scale insulin coverage, as well as detemir insulin to be continued. 4. Postoperative infection. Vascular surgery is advising to continue intravenous (IV) antibiotic therapy at least until mid week. 5. Disposition: Awaiting approval for acute rehabilitation unit (ARU).
[2020-04-02] MEDS ORDERED: VANC750P8 IV (11:39)
[2020-04-02] MEDS ORDERED: CLOP75TA2 PO (11:39)
[2020-04-02] MEDS ORDERED: [UNRECOGNIZED DRUG - CODE] IV (11:39)
[2020-04-02] MEDS ORDERED: SENN-52 PO (11:39)
[2020-04-02] MEDS ORDERED: ASPI81TAEC PO (11:39)
[2020-04-02] MEDS ORDERED: KETO2CR TOP (11:39)
[2020-04-02] MEDS ORDERED: VANC1INJ37 IV (11:39)
[2020-04-02 14:15] VITALS: BP 125/59
[2020-04-02] MEDS ORDERED: BISACODYL 10 MG SUPP PR PRN (15:15)
[2020-04-02] MEDS ORDERED: oxyCODONE 5MG TAB PO PRN (15:15)
[2020-04-02] MEDS ORDERED: DEXTROSE 50% 50 ML SYRINGE IV PRN (15:15)
[2020-04-02] MEDS ORDERED: MOM 30ML SUSPENSION UDC PO PRN (15:15)
[2020-04-02] MEDS ORDERED: GLUCOSE 4GM CHEW TABLET PO PRN (15:15)
[2020-04-02] MEDS ORDERED: GLUCAGON INJ 1MG VIAL SC PRN (15:15)
--- NOTE | 2020-04-02 17:06 | IPNPDOC ---
Date Seen The patient was seen on 04/02/20. Progress Note Patient seen and examined. Doing well status post revascularization left lower extremity and left below-knee amputation. His erythema is almost completely resolved, which is a huge improvement from where we started postop. The venous congestion on the flap is also significantly better with only a small amount of venous congestion noted in the central inferior incision on the posterior flap. There are 2 small areas of excoriation, but otherwise the skin is clean dry and intact and healing well. The incision was cleaned and dried. Xeroform was placed over the central portion in the area of venous congestion excoriations and mild erythema. 4 x 4's gauze and Sonu wrap were placed as a final dressing. I think it is safe to discontinue the antibiotics tomorrow. Hopefully the flap and the i ncision will continue to heal. I am cautiously optimistic that this will be a successful below-knee amputation. The patient is doing an excellent job of extending his knee and preventing contracture. We will plan to discontinue his jose luis 2 weeks postop and sutures 3 weeks postop if he is healing well. Continue local wound care and physical and occupational therapy as tolerated. We appreciate the opportunity to participate in care of this patient. VS, I&O, 24H, Fishbone Vital Signs/I&O Vital Signs Date Time Temp Pulse Resp B/P (MAP) Pulse Ox O2 Delivery O2 Flow Rate FiO2 04/02/20 14:15 98.6 90 19 125/59 (81) 96 Room Air Laboratory Data 24H LABS Laboratory Tests 2 04/02/20 16:27: Bedside Glucose (Misc Panel) 258H SHAILESH MARADIAGA MD Apr 02, 2020 17:06
[2020-04-02] MEDS: LACTOBACILLUS ACIDOPHILUS CAP (BACID) PO SCH ×2 (17:13→20:28)
[2020-04-02] MEDS: MEROPENEM INJ 1 GM in IV 1 EA IV SCH (17:13)
[2020-04-02] MEDS: ACETAMINOPHEN 500 MG TAB PO SCH ×2 (17:13→20:28)
[2020-04-02] MEDS: PANTOPRAZOLE 40MG TAB (PROTONIX) PO SCH (17:13)
[2020-04-02] MEDS: HumaLOG INSULIN (NovoLOG) PER UNIT SC SCH ×2 (17:14→20:29)
[2020-04-02] MEDS: REMEDY PHYTOPLEX Z-GUARD PASTE 113GM TUBE (FROM STOREROOM PRODUCT) TOP SCH ×2 (17:14→20:31)
[2020-04-02 20:00] VITALS: BP 121/57
[2020-04-02] MEDS: FERROUS GLUCONATE 324 MG TAB PO SCH (20:28)
[2020-04-02] MEDS: SENOKOT S TAB PO SCH (20:28)
[2020-04-02] MEDS: LEVEMIR (INSULIN DETEMIR) 1 UNITS/0.01ML SC SCH (20:29)
[2020-04-02] MEDS: BRIMONIDINE 0.1% OPHTH SOLN 5 ML OU SCH (20:30)
[2020-04-02] MEDS: LATANOPROST 0.005% OPHTH SOLN 2.5 ML OU SCH (20:30)
[2020-04-02] MEDS: KETOCONAZOLE 2% CREAM TOP SCH (20:30)
[2020-04-02] MEDS: HEPARIN SOD (PORCINE) 5000UNITS/ML 1ML VIAL/SYRINGE SC SCH (20:37)
[2020-04-03] MEDS: MEROPENEM INJ 1 GM in IV 1 EA IV SCH (03:58)
[2020-04-03] MEDS: HEPARIN SOD (PORCINE) 5000UNITS/ML 1ML VIAL/SYRINGE SC SCH ×3 (05:25→21:35)
[2020-04-03 05:32] VITALS: BP 120/59
[2020-04-03] MEDS ORDERED: VANCOMYCIN HCL 750 MG, VIAL MATE ADAPTER 1 EACH in D5W 250 ML IV ONE (06:00)
[2020-04-03] MEDS ORDERED: VANCOMYCIN HCL 500 MG in D5W MINI-BAG PLUS 100 ML IV ONE (07:00)
[2020-04-03] MEDS: LACTOBACILLUS ACIDOPHILUS CAP (BACID) PO SCH ×4 (08:00→21:35)
[2020-04-03 08:10] LABS: BASO # 0.1 10^3/uL (0.0-0.2); EOS # 0.3 10^3/uL (0.0-0.5); EOS % 6.2 % (0.0-3.0); HEMATOCRIT 29.1 % (42.0-52.0); HEMOGLOBIN 8.6 g/dl (13.5-17.5); LYMPH # 1.5 10^3/uL (1.5-5.0); LYMPH % 29.8 % (24.0-44.0); MEAN CORPUSCULAR HEMOGLOBIN 27.6 pg (27.0-33.0); MEAN CORPUSCULAR HGB CONC 29.6 g/dl (32.0-36.5); MEAN CORPUSCULAR VOLUME 93.3 fl (80.0-96.0); MONO # 0.3 10^3/uL (0.0-0.8); MONO % 6.4 % (0.0-5.0); NEUTROPHILS # 2.9 10^3/uL (1.5-8.5); NEUTROPHILS % 56.4 % (36.0-66.0); PLATELET COUNT, AUTOMATED 497 10^3/uL (150-450); RED BLOOD COUNT 3.12 10^6/uL (4.30-6.10); WHITE BLOOD COUNT 5.2 10^3/uL (4.0-10.0)
[2020-04-03 08:50] LABS: ALBUMIN 2.1 GM/DL (3.2-5.2); ALT/SGPT 18 U/L (12-78); BILIRUBIN,TOTAL 0.3 MG/DL (0.2-1.0); BLOOD UREA NITROGEN 29 MG/DL (7-18); C REACTIVE PROTEIN QUANTITATIV 2.75 MG/DL (0.00-0.30); CALCIUM LEVEL 8.7 MG/DL (8.8-10.2); CARBON DIOXIDE LEVEL 32 MEQ/L (21-32); CHLORIDE LEVEL 102 MEQ/L (98-107); CREATININE FOR GFR 1.19 MG/DL (0.70-1.30); GLOMERULAR FILTRATION RATE > 60.0 (>42); GLUCOSE, FASTING 204 MG/DL (70-100); POTASSIUM SERUM 4.2 MEQ/L (3.5-5.1); SODIUM LEVEL 137 MEQ/L (136-145); TOTAL PROTEIN 7.1 GM/DL (6.4-8.2)
[2020-04-03] MEDS ORDERED: VANCOMYCIN HCL 1,250 MG in IV FLUID PLACE HOLDER 1 EA IV ONE (09:00)
[2020-04-03] MEDS: ASPIRIN 81 MG ENTERIC TAB PO SCH (09:36)
[2020-04-03] MEDS: FERROUS GLUCONATE 324 MG TAB PO SCH ×2 (09:37→21:35)
[2020-04-03] MEDS: MULTIVITAMINS/MINERALS THERAP 1 TAB PO SCH (09:37)
[2020-04-03] MEDS: HumaLOG INSULIN (NovoLOG) PER UNIT SC SCH ×4 (09:37→21:48)
[2020-04-03] MEDS: PANTOPRAZOLE 40MG TAB (PROTONIX) PO SCH (09:38)
[2020-04-03] MEDS: CLOPIDOGREL 75 MG TAB PO SCH (09:38)
[2020-04-03] MEDS: SENOKOT S TAB PO SCH ×2 (09:38→21:00)
[2020-04-03] MEDS: ACETAMINOPHEN 500 MG TAB PO SCH ×3 (09:39→21:35)
[2020-04-03] MEDS: BRIMONIDINE 0.1% OPHTH SOLN 5 ML OU SCH ×2 (09:40→21:36)
[2020-04-03] MEDS: KETOCONAZOLE 2% CREAM TOP SCH ×2 (09:41→21:37)
[2020-04-03] MEDS: REMEDY PHYTOPLEX Z-GUARD PASTE 113GM TUBE (FROM STOREROOM PRODUCT) TOP SCH ×3 (09:42→21:37)
--- NOTE | 2020-04-03 11:16 | HPEPDOC ---
Cosmetics Supervisor Note DATE OF ADMISSION: 04-02-20 DATE OF SERVICE: 04-03-20 TIME OF ADMISSION: Please refer to physician's admission order. SOURCE OF ADMISSION INFORMATION: [facility] record and patient CHIEF COMPLAINT: left BKA HISTORY OF PRESENT ILLNESS: 74M pmh PAD s/p right BKA, diabetes with peripheral polyneuropathy, HTN, HLD, iron deficiency anemia who dropped a box onto his left foot and presented to [facility] ED on 03-18-20 with worsening pain and was found to be in DKA with a left foot infection. Foot Xray showed, Significant subcutaneous emphysema consistent with underlying infectious process and ulceration. Osteomyelitis involving the 5th toe cannot be excluded. He was started on antibiotics and vascular was consulted recommended an arterial study which showed, Marked atheromatous changes with evidence for right distal superficial femoral artery occlusion and areas of stenosis through the left profundus, superficial femoral artery, popliteal artery, and anterior tibial artery. He then underwent a left BKA on 03-26-30 with post-op anemia for which he received blood transfusion of prbcs. He was continued on IV antibiotics following surgery due to concern for residual limb cellulitis, had episodes of hypoglycemia for which his insulin dosing was adjusted, and was evaluated by therapy who noted deficits in mobility and ADL below his prior level of function making him a good candidate for ARU level of care. REVIEW OF SYSTEMS: The following is a completed review of systems and has been reviewed. Review of systems otherwise unremarkable. 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 PAST MEDICAL HISTORY: as per HPI PAST SURGICAL HISTORY: As per HPI and appendectomy ALLERGIES: Please see below. MEDICATIONS: Please see below. FAMILY HISTORY: Cardiac, DM, renal disease SOCIAL HISTORY: denies smoking, etoh, illicit drugs DIET: consistent carb PHYSICAL EXAMINATION: VITAL SIGNS: Please see below. GENERAL: Pleasant and cooperative. No acute distress. HEENT: PERRL. Extraocular movements intact. Clear conjunctiva CARDIOVASCULAR: Regular rate and rhythm. No murmurs, rubs, or gallops LUNGS: Clear to auscultation bilaterally. No wheezes. No rhonchi ABDOMEN: Soft, nontender, nondistended. Positive bowel sounds. Normal active bowel sounds NEUROLOGICAL: Alert and oriented times three. Cranial nerves II through XII grossly intact. Sensation grossly intact except diminished in distal LE EXTREMITIES: 5\5 strength bilateral upper extremities. 5/5 bilat hip flexors, knee extensors and flexors SKIN: groin erythematous rash, right BKA with medial laceration (covered with optifoam) and blanchable erythema, left BKA incision with minimal erythema, no ecchymosis or induration, mildly macerated borders LABORATORY DATA: Please see below. IMAGING: Imaging documentation personally reviewed by record FUNCTIONAL STATUS: Premorbid: Modified Independent with all activities of daily life as well as mobility with cane and prosthesis On Admission: Min-total assist for bed mobility, functional transfers, ambulation, dressing, toileting GOALS: Mod-I from wheelchair level for community distances, toileting, functional transfers, dressing, bathing, bed mobility ASSESSMENT:74-year-old M with past medical history of DM and PAD who presents status post left BKA PLAN: 1. Rehab- PT/OT advance mobility and ADLs, stretch/maintain ROM/strengthen all 4 limbs, teach limb care and desensitization 2. Neuro- peripheral polyneuropathy celine to longstanding DM 3. Vasc- s/p left BKA c/u IV antibiotics through till 04-03-20, daily wound care, monitor for infection, will trend CRP. c/u ASA and Plavix -vasc consulted, f/u as outpatient 4. Cardiac- hx of PAD on ASa and Plavix, will monitor BPs 5. Resp- Encourage incentive spirometry, monitor for infection 6. Endo- DM1 on Insulin, monitor and adjust dosing prn 7. GI ppx- protonix 8. DVT ppx- heparin 9. Pain- tylenol and oxycodone 10. - monitor PVRs 11. Heme- iron deficiency anemia will start oral iron, FOBT ordered 12. Dispo- tbd POST ADMISSION PHYSICIAN EVALUATION: Medical and functional status: Description of medical status, medical asse ssment: As above. Rehabilitation diagnosis and current and prior cold morbid medical conditions as above. Risk of complications and plans to mitigate them as above. Description of functional status current status is as above. Prior status as above. Status compared to preadmission: There are no clinically significant differences between the patient's current status and the information described on the preadmission screening document. Treatment plan anticipated: Treatment plan is as described above. Required disciplines including physical therapy, occupational therapy, others as noted above Intensity of services: 3 hours a day, 6 days a week. Special considerations: There are no specific special or safety considerations that would likely preclude immediate implementation of an intensive greyson abilitation program or subsequently influence the plan of care. ATTESTATION: Considering all the information above, it is my best judgment that this patient requires intensive rehabilitation therapy as described above and an inpatient hospital environment due to the complexity of nursing, medical, and rehabilitation needs required by the patient. Furthermore, this patient can reasonably be expected to participate in an benefit from an inpatient rehabilitation stay with an interdisciplinary team approach to the delivery of rehabilitation care under the direction and supervision of rehabilitation physician. PROGNOSIS: good ESTIMATED LENGTH OF STAY:10-14 days. PROJECTED DISCHARGE DESTINATION: Home with family support and any durable medical equipment required to increase functional safety and mobility. TIME SPENT COUNSELING AND COORDINATING INITIAL CARE: Greater than 70 minutes. Vital Signs Vital Sign - Last 24 Hours 04/02/20 04/02/20 04/03/20 14:15 20:00 05:32 Temp 98.6 98.4 97.5 Pulse 90 84 73 Resp 19 19 19 B/P (MAP) 125/59 (81) 121/57 (78) 120/59 (79) Pulse Ox 96 97 97 O2 Delivery Room Air Room Air Room Air Laboratory Data CBC/BMP Laboratory Tests 04/03/20 07:52 Labs 24H Laboratory Tests 2 04/02/20 16:27: Bedside Glucose (Misc Panel) 258H 04/02/20 19:41: Bedside Glucose (Misc Panel) 285H 04/03/20 04:43: Bedside Glucose (Misc Panel) 202H 04/03/20 07:52: Immature Granulocyte % (Auto) 0.2, Neutrophils (%) (Auto) 56.4, Lymphocytes (%) (Auto) 29.8, Monocytes (%) (Auto) 6.4H, Eosinophils (%) (Auto) 6.2H, Basophils (%) (Auto) 1.0, Neutrophils # (Auto) 2.9, Lymphocytes # (Auto) 1.5, Monocytes # (Auto) 0.3, Eosinophils # (Auto) 0.3, Basophils # (Auto) 0.1, Nucleated Red Blood Cells % (auto) 0.0, Anion Gap 3L, Glomerular Filtration Rate > 60.0, Calcium Level 8.7L, Total Bilirubin 0.3, Aspartate Amino Transf (AST/SGOT) 12, Alanine Aminotransferase (ALT/SGPT) 18, Alkaline Phosphatase 83, C-Reactive Protein, Quantitative 2.75H, Total Protein 7.1, Albumin 2.1L, Albumin/Globulin Ratio 0.4 FSBS Laboratory Tests Test 04/02/20 16:27 04/02/20 19:41 04/03/20 04:43 Range/Units Bedside Glucose (Misc Panel) 258 285 202 83-110 MG/DL Home Medications Scheduled Aspirin (Aspirin EC) 81 Mg Tablet.dr, 81 MG PO QAM Brimonidine Tartrate (Alphagan P) 100 Drop/5 Ml Soln, 1 DROP OU BID, (Reported) Clopidogrel Bisulfate (Clopidogrel) 75 Mg Tablet, 75 MG PO DAILY Ezetimibe (Ezetimibe) 10 Mg Tab, 10 MG PO DAILY, (Reported) Insulin Detemir (Levemir) 100 Unit/1 Ml Vial, 40 UNITS SC QHS, (Reported) Insulin Human Lispro (Humalog) 100 Unit/1 Ml Vial, 1 DOSE SC AC, (Reported) PER SLIDING SCALE Ketoconazole (Ketoconazole) 15 Gm Cream..g., 0 DOSE TOP BID Latanoprost (Xalatan) 0.005% 2.5ML Drops, 1 DROP OU QHS, (Reported) Meropenem (Merrem) 1 Gm Vial, 1 GM IV Q12H Multivitamin with Iron (Tab-A-Bharath with Iron) 1 Tab Tab, 1 TAB PO DAILY, (Reported) Sennosides/Docusate Sodium (Senna Plus Tablet) 1 Each Tablet, 2 TAB PO BID Vancomycin/0.9 % Sod Chloride (Vanco 500 mg/100 ml-0.9% NaCl) 500 Mg/100 Ml Froz.piggy, 1 INJ IV Q24H Vancomycin/Water For Inj (Peg) (Vancomycin 750 mg/150 ml Bag) 750 Mg/150 Ml Piggyback, 750 MG IV Q24H Scheduled PRN Acetaminophen (Tylenol Extra Strength) 500 Mg Tablet, 1,000 MG PO Q6H PRN for PAIN / FEVER, (Reported) Allergies Coded Allergies: Penicillins (Verified Allergy, Mild, rash, 10/14/18) A-FIB/CHADSVASC A-FIB History Current/History of A-Fib/PAF?: No Current PO Anticoag Therapy: No YOSVANY GORMAN MD Apr 03, 2020 11:16
[2020-04-03 14:00] VITALS: BP 131/63
[2020-04-03 20:38] VITALS: BP 132/62
[2020-04-03] MEDS: LATANOPROST 0.005% OPHTH SOLN 2.5 ML OU SCH (21:36)
[2020-04-03] MEDS: LEVEMIR (INSULIN DETEMIR) 1 UNITS/0.01ML SC SCH (21:36)
[2020-04-04] MEDS: HEPARIN SOD (PORCINE) 5000UNITS/ML 1ML VIAL/SYRINGE SC SCH ×3 (06:14→21:41)
[2020-04-04 06:30] VITALS: BP 146/71
[2020-04-04] MEDS: LACTOBACILLUS ACIDOPHILUS CAP (BACID) PO SCH ×4 (07:53→21:38)
[2020-04-04] MEDS: HumaLOG INSULIN (NovoLOG) PER UNIT SC SCH ×4 (07:54→21:36)
[2020-04-04] MEDS: PANTOPRAZOLE 40MG TAB (PROTONIX) PO SCH (08:00)
[2020-04-04] MEDS: MULTIVITAMINS/MINERALS THERAP 1 TAB PO SCH (08:00)
[2020-04-04] MEDS: CLOPIDOGREL 75 MG TAB PO SCH (08:00)
[2020-04-04] MEDS: SENOKOT S TAB PO SCH ×2 (08:00→21:00)
[2020-04-04] MEDS: ASPIRIN 81 MG ENTERIC TAB PO SCH (08:00)
[2020-04-04] MEDS: FERROUS GLUCONATE 324 MG TAB PO SCH ×2 (08:00→21:38)
[2020-04-04] MEDS: ACETAMINOPHEN 500 MG TAB PO SCH ×3 (08:04→21:38)
[2020-04-04] MEDS: BRIMONIDINE 0.1% OPHTH SOLN 5 ML OU SCH ×2 (08:04→21:36)
[2020-04-04] MEDS: KETOCONAZOLE 2% CREAM TOP SCH ×2 (08:05→21:37)
[2020-04-04] MEDS: REMEDY PHYTOPLEX Z-GUARD PASTE 113GM TUBE (FROM STOREROOM PRODUCT) TOP SCH ×3 (08:06→21:37)
[2020-04-04 14:00] VITALS: BP 108/68
[2020-04-04 21:00] VITALS: BP 140/63
[2020-04-04] MEDS: LEVEMIR (INSULIN DETEMIR) 1 UNITS/0.01ML SC SCH (21:36)
[2020-04-04] MEDS: LATANOPROST 0.005% OPHTH SOLN 2.5 ML OU SCH (21:36)
[2020-04-05] MEDS: HEPARIN SOD (PORCINE) 5000UNITS/ML 1ML VIAL/SYRINGE SC SCH ×3 (06:07→20:27)
[2020-04-05 06:11] VITALS: BP 129/60
[2020-04-05] MEDS: ACETAMINOPHEN 500 MG TAB PO SCH ×3 (08:40→20:22)
[2020-04-05] MEDS: MULTIVITAMINS/MINERALS THERAP 1 TAB PO SCH (08:40)
[2020-04-05] MEDS: PANTOPRAZOLE 40MG TAB (PROTONIX) PO SCH (08:40)
[2020-04-05] MEDS: LACTOBACILLUS ACIDOPHILUS CAP (BACID) PO SCH ×4 (08:40→20:22)
[2020-04-05] MEDS: HumaLOG INSULIN (NovoLOG) PER UNIT SC SCH ×4 (08:41→20:23)
[2020-04-05] MEDS: CLOPIDOGREL 75 MG TAB PO SCH (08:41)
[2020-04-05] MEDS: SENOKOT S TAB PO SCH ×2 (08:41→20:22)
[2020-04-05] MEDS: ASPIRIN 81 MG ENTERIC TAB PO SCH (08:41)
[2020-04-05] MEDS: FERROUS GLUCONATE 324 MG TAB PO SCH ×2 (08:41→20:22)
[2020-04-05] MEDS: KETOCONAZOLE 2% CREAM TOP SCH ×2 (08:42→20:24)
[2020-04-05] MEDS: BRIMONIDINE 0.1% OPHTH SOLN 5 ML OU SCH ×2 (08:42→20:24)
[2020-04-05] MEDS: REMEDY PHYTOPLEX Z-GUARD PASTE 113GM TUBE (FROM STOREROOM PRODUCT) TOP SCH ×3 (08:43→20:24)
[2020-04-05 14:00] VITALS: BP 106/54
[2020-04-05 20:00] VITALS: BP 136/64
[2020-04-05] MEDS: LEVEMIR (INSULIN DETEMIR) 1 UNITS/0.01ML SC SCH (20:23)
[2020-04-05] MEDS: LATANOPROST 0.005% OPHTH SOLN 2.5 ML OU SCH (20:24)
[2020-04-06] MEDS: HEPARIN SOD (PORCINE) 5000UNITS/ML 1ML VIAL/SYRINGE SC SCH ×3 (05:03→21:20)
[2020-04-06 06:00] VITALS: BP 133/63
[2020-04-06] MEDS: CLOPIDOGREL 75 MG TAB PO SCH (07:28)
[2020-04-06] MEDS: ASPIRIN 81 MG ENTERIC TAB PO SCH (07:29)
[2020-04-06] MEDS: PANTOPRAZOLE 40MG TAB (PROTONIX) PO SCH (07:29)
[2020-04-06] MEDS: LACTOBACILLUS ACIDOPHILUS CAP (BACID) PO SCH ×4 (07:29→21:17)
[2020-04-06] MEDS: FERROUS GLUCONATE 324 MG TAB PO SCH ×2 (07:29→21:18)
[2020-04-06] MEDS: HumaLOG INSULIN (NovoLOG) PER UNIT SC SCH ×4 (07:29→21:00)
[2020-04-06] MEDS: SENOKOT S TAB PO SCH ×2 (07:29→21:00)
[2020-04-06] MEDS: MULTIVITAMINS/MINERALS THERAP 1 TAB PO SCH (07:29)
[2020-04-06] MEDS: REMEDY PHYTOPLEX Z-GUARD PASTE 113GM TUBE (FROM STOREROOM PRODUCT) TOP SCH ×3 (07:30→21:20)
[2020-04-06] MEDS: KETOCONAZOLE 2% CREAM TOP SCH ×2 (07:30→21:00)
[2020-04-06] MEDS: BRIMONIDINE 0.1% OPHTH SOLN 5 ML OU SCH ×2 (07:30→21:20)
[2020-04-06] MEDS: ACETAMINOPHEN 500 MG TAB PO SCH ×3 (07:32→21:18)
[2020-04-06 09:09] LABS: BASO # 0.1 10^3/uL (0.0-0.2); BASO % 1.1 % (0.0-1.0); EOS # 0.5 10^3/uL (0.0-0.5); EOS % 7.5 % (0.0-3.0); HEMATOCRIT 30.6 % (42.0-52.0); HEMOGLOBIN 9.2 g/dl (13.5-17.5); LYMPH % 28.2 % (24.0-44.0); MEAN CORPUSCULAR HEMOGLOBIN 28.5 pg (27.0-33.0); MEAN CORPUSCULAR HGB CONC 30.1 g/dl (32.0-36.5); MEAN CORPUSCULAR VOLUME 94.7 fl (80.0-96.0); MONO # 0.4 10^3/uL (0.0-0.8); MONO % 5.9 % (0.0-5.0); NEUTROPHILS # 4.1 10^3/uL (1.5-8.5); PLATELET COUNT, AUTOMATED 542 10^3/uL (150-450); RED BLOOD COUNT 3.23 10^6/uL (4.30-6.10); WHITE BLOOD COUNT 7.2 10^3/uL (4.0-10.0)
[2020-04-06 09:37] LABS: BLOOD UREA NITROGEN 28 MG/DL (7-18); CALCIUM LEVEL 8.8 MG/DL (8.8-10.2); CARBON DIOXIDE LEVEL 29 MEQ/L (21-32); CHLORIDE LEVEL 100 MEQ/L (98-107); CREATININE FOR GFR 1.23 MG/DL (0.70-1.30); GLOMERULAR FILTRATION RATE > 60.0 (>42); GLUCOSE, FASTING 259 MG/DL (70-100); POTASSIUM SERUM 4.6 MEQ/L (3.5-5.1); SODIUM LEVEL 134 MEQ/L (136-145)
--- NOTE | 2020-04-06 10:07 | IPNPDOC ---
PM&R Progress Note DATE OF SERVICE: Apr 06, 2020 Fleet Administrative Assistant Progress Note Subjective: Patient reporting he had a good weekend, no fevers or chills, and that he is feeling stronger. REVIEW OF SYSTEMS: The following is a completed review of systems and has been reviewed. Review of systems otherwise unremarkable. 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 PHYSICAL EXAMINATION: VITAL SIGNS: Please see below. GENERAL: Pleasant and cooperative. No acute distress. HEENT: PERRL. Extraocular movements intact. Clear conjunctiva CARDIOVASCULAR: Regular rate and rhythm. No murmurs, rubs, or gallops LUNGS: Clear to auscultation bilaterally. No wheezes. No rhonchi ABDOMEN: Soft, nontender, nondistended. Positive bowel sounds. Normal active bow el sounds NEUROLOGICAL: Alert and oriented times three. Cranial nerves II through XII grossly intact. Sensation grossly intact except diminished in distal LE EXTREMITIES: 5\5 strength bilateral upper extremities. 5/5 bilat hip flexors, knee extensors and flexors SKIN: groin erythematous rash (improving), right BKA with medial laceration (covered with optifoam) and blanchable erythema, left BKA incision with no erythema, no ecchymosis or induration ASSESSMENT:74-year-old M with past medical history of DM and PAD who presents status post left BKA PLAN: 1. Rehab- PT/OT advance mobility and ADLs, stretch/maintain ROM/strengthen all 4 limbs, teach limb care and desensitization 2. Neuro- peripheral polyneuropathy celine to longstanding DM 3. Vasc- s/p left BKA c/u IV antibiotics through till 04-03-20, daily wound care, monitor for infection, will trend CRP(trending down off antibiotics), c/u ASA and Plavix -vasc consulted, f/u as outpatient 4. Cardiac- hx of PAD on ASa and Plavix, will monitor BPs 5. Resp- Encourage incentive spirometry, monitor for infection 6. Endo- DM1 on Insulin, monitor and adjust dosing prn, mildly elevated fasting glucose levls, will increase evening long-acting and c/u to monitor 7. GI ppx- protonix 8. DVT ppx- heparin 9. Pain- tylenol and oxycodone 10. - monitor PVRs 11. Heme- iron deficiency anemia will start oral iron, FOBT ordered 12. Dispo- tbd Allergies Coded Allergies: Penicillins (Verified Allergy, Mild, rash, 10/14/18) Vital Signs Vital Signs Date Time Temp Pulse Resp B/P (MAP) Pulse Ox O2 Delivery O2 Flow Rate FiO2 04/06/20 06:00 98.2 70 18 133/63 (86) 98 Room Air Laboratory Data CBC/BMP Laboratory Tests 04/06/20 07:49 Labs 24H Laboratory Tests 2 04/05/20 11:18: Bedside Glucose (Misc Panel) 203H 04/05/20 16:14: Bedside Glucose (Misc Panel) 290H 04/05/20 19:21: Bedside Glucose (Misc Panel) 226H 04/06/20 05:02: Bedside Glucose (Misc Panel) 189H 04/06/20 07:49: Immature Granulocyte % (Auto) 0.3, Neutrophils (%) (Auto) 57.0, Lymphocytes (%) (Auto) 28.2, Monocytes (%) (Auto) 5.9H, Eosinophils (%) (Auto) 7.5H, Basophils (%) (Auto) 1.1H, Neutrophils # (Auto) 4.1, Lymphocytes # (Auto) 2.0, Monocytes # (Auto) 0.4, Eosinophils # (Auto) 0.5, Basophils # (Auto) 0.1, Nucleated Red Blood Cells % (auto) 0.0, Anion Gap 5L, Glomerular Filtration Rate > 60.0, Calcium Level 8.8, C-Reactive Protein, Quantitative 1.20H Microbiology Microbiology 04/03/20 Stool Occult Blood (BRITNEY) - Final, Complete Current Medications Current Medications Current Medications Medications (Trade) Dose Ordered Sig/Anna Route PRN Reason Start Time Stop Time Status Last Admin Dose Admin Acetaminophen (Tylenol Tab) 1,000 mg TID PO 04/02/20 16:00 04/06/20 07:32 Aspirin (Ecotrin) 81 mg DAILY PO 04/03/20 09:00 04/06/20 07:29 Bisacodyl (Dulcolax Suppository) 10 mg DAILYPRN PRN IN CONSTIPATION 04/02/20 15:15 Brimonidine Tartrate (Alphagan P 0.1%) 1 drop BID OU 04/02/20 21:00 04/06/20 07:30 Clopidogrel Bisulfate (PLAVix) 75 mg DAILY PO 04/03/20 09:00 04/06/20 07:28 Dextrose (Dextrose 50%) 25 ml ASDIRECTED PRN IV SEE LABEL COMMENTS 04/02/20 15:15 Ferrous Gluconate (Fergon) 324 mg BID PO 04/02/20 21:00 04/06/20 07:29 Glucagon (Glucagon) 1 mg ASDIRECTED PRN SC SEE LABEL COMMENTS 04/02/20 15:15 Glucose (Glucose) 16 GM ASDIRECTED PRN PO SEE LABEL COMMENTS 04/02/20 15:15 Heparin Sodium (Porcine) (Heparin) 5,000 units Q8H SC 04/02/20 22:00 04/06/20 05:03 Insulin Detemir (Levemir Insulin) 20 units QHS SC 04/02/20 21:00 04/05/20 20:23 Insulin Human Lispro (HumaLOG INSULIN) SEE PROTOCOL TABLE AC SC 04/02/20 17:30 04/06/20 07:29 Insulin Human Lispro (HumaLOG INSULIN) SEE PROTOCOL TABLE QHS SC 04/02/20 21:00 04/04/20 21:36 Ketoconazole (Nizoral) APPLY TO RASH ON THIG... BID TOP 04/02/20 21:00 04/06/20 07:30 Lactobacillus Acidophilus (Bacid) 1 ea WMHS PO 04/02/20 18:00 04/06/20 07:29 Latanoprost (Xalatan 0.005% Op Soln) 1 drop QHS OU 04/02/20 21:00 04/05/20 20:24 Magnesium Hydroxide (Milk Of Magnesia) 30 ml DAILYPRN PRN PO CONSTIPATION 04/02/20 15:15 Meropenem 1 gm/IV Miscellaneous Supplies 50 ml @ 100 mls/hr Q12H IV 04/02/20 16:00 04/03/20 15:59 DC 04/03/20 03:58 Multivitamins (Theragram-M) 1 tab DAILY PO 04/03/20 09:00 04/06/20 07:29 Oxycodone HCl (Roxicodone, Oxyir) 5 mg Q4HP PRN PO PAIN 04/02/20 15:15 Pantoprazole Sodium (Protonix) 40 mg DAILY PO 04/02/20 09:00 04/06/20 07:29 Senna/Docusate Sodium (Senokot S) 2 tab BID PO 04/02/20 21:00 04/06/20 07:29 YOSVANY GORMAN MD Apr 06, 2020 10:07
[2020-04-06 14:00] VITALS: BP 124/67
[2020-04-06 20:00] VITALS: BP 128/58
[2020-04-06] MEDS ORDERED: LEVEMIR (INSULIN DETEMIR) 1 UNITS/0.01ML SC SCH (21:00)
[2020-04-06] MEDS: LATANOPROST 0.005% OPHTH SOLN 2.5 ML OU SCH (21:20)
[2020-04-07] MEDS: HEPARIN SOD (PORCINE) 5000UNITS/ML 1ML VIAL/SYRINGE SC SCH ×3 (05:39→21:31)
[2020-04-07 06:00] VITALS: BP 111/52
[2020-04-07] MEDS: SENOKOT S TAB PO SCH ×2 (07:45→21:29)
[2020-04-07] MEDS: CLOPIDOGREL 75 MG TAB PO SCH (08:44)
[2020-04-07] MEDS: MULTIVITAMINS/MINERALS THERAP 1 TAB PO SCH (08:44)
[2020-04-07] MEDS: HumaLOG INSULIN (NovoLOG) PER UNIT SC SCH ×4 (08:44→21:00)
[2020-04-07] MEDS: ASPIRIN 81 MG ENTERIC TAB PO SCH (08:45)
[2020-04-07] MEDS: LACTOBACILLUS ACIDOPHILUS CAP (BACID) PO SCH ×4 (08:45→21:29)
[2020-04-07] MEDS: PANTOPRAZOLE 40MG TAB (PROTONIX) PO SCH (08:45)
[2020-04-07] MEDS: FERROUS GLUCONATE 324 MG TAB PO SCH ×2 (08:45→21:29)
[2020-04-07] MEDS: ACETAMINOPHEN 500 MG TAB PO SCH ×3 (08:46→21:29)
[2020-04-07] MEDS: BRIMONIDINE 0.1% OPHTH SOLN 5 ML OU SCH ×2 (08:46→21:31)
[2020-04-07] MEDS: REMEDY PHYTOPLEX Z-GUARD PASTE 113GM TUBE (FROM STOREROOM PRODUCT) TOP SCH ×3 (08:47→21:00)
[2020-04-07] MEDS: KETOCONAZOLE 2% CREAM TOP SCH ×2 (08:49→21:31)
--- NOTE | 2020-04-07 10:43 | IPNPDOC ---
PM&R Progress Note DATE OF SERVICE: Apr 07, 2020 [employer] Progress Note Subjective: Patient reporting he is upset about staff finding a bedbug in his room. Otherwise he has no complaints. REVIEW OF SYSTEMS: The following is a completed review of systems and has been reviewed. Review of systems otherwise unremarkable. 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 PHYSICAL EXAMINATION: VITAL SIGNS: Please see below. GENERAL: Pleasant and cooperative. No acute distress. HEENT: PERRL. Extraocular movements intact. Clear conjunctiva CARDIOVASCULAR: Regular rate and rhythm. No murmurs, rubs, or gallops LUNGS: Clear to auscultation bilaterally. No wheezes. No rhonchi ABDOMEN: Soft, nontender, nondistended. Positive bowel sounds. Normal active bowel sounds NEUROLOGICAL: Alert and oriented times three. Cranial nerves II through XII grossly intact. Sensation grossly intact except diminished in distal LE EXTREMITIES: 5\5 strength bilateral upper extremities. 5/5 bilat hip flexors, knee extensors and flexors SKIN: groin erythematous rash (improving), right BKA with medial laceration (covered with optifoam) and blanchable erythema, left BKA incision with no erythema, no ecchymosis or induration ASSESSMENT:74-year-old M with past medical history of DM and PAD who presents status post left BKA PLAN: 1. Rehab- PT/OT advance mobility and ADLs, stretch/maintain ROM/strengthen all 4 limbs, teach limb care and desensitization 2. Neuro- peripheral polyneuropathy celine to longstanding DM 3. Vasc- s/p left BKA s/p IVr antibiotics, CRP trending down, wound appears to be healing well, c/u ASA and Plavix -vasc consulted, f/u as outpatient 4. Cardiac- hx of PAD on ASa and Plavix, will monitor BPs 5. Resp- Encourage incentive spirometry, monitor for infection 6. Endo- DM1 on Insulin, monitor and adjust dosing prn, mildly elevated fasting glucose levels, will increase evening long-acting again and add daytime coverage, c/u ISS 7. GI ppx- protonix 8. DVT ppx- heparin 9. Pain- tylenol and oxycodone 10. - monitor PVRs, voiding well 11. Heme- iron deficiency anemia, c/u oral iron, FOBT negative 12. Dispo- tbd Allergies Coded Allergies: Penicillins (Verified Allergy, Mild, rash, 10/14/18) Vital Signs Vital Signs Date Time Temp Pulse Resp B/P (MAP) Pulse Ox O2 Delivery O2 Flow Rate FiO2 04/07/20 06:00 97.7 72 18 111/52 (71) 97 Room Air Laboratory Data Labs 24H Laboratory Tests 2 04/06/20 11:13: Bedside Glucose (Misc Panel) 329H 04/06/20 16:06: Bedside Glucose (Misc Panel) 192H 04/06/20 21:08: Bedside Glucose (Misc Panel) 220H 04/07/20 05:40: Bedside Glucose (Misc Panel) 183H Microbiology Microbiology 04/03/20 Stool Occult Blood (BRITNEY) - Final, Complete Current Medications Current Medications Current Medications Medications (Trade) Dose Ordered Sig/Anna Route PRN Reason Start Time Stop Time Status Last Admin Dose Admin Acetaminophen (Tylenol Tab) 1,000 mg TID PO 04/02/20 16:00 04/07/20 08:46 Aspirin (Ecotrin) 81 mg DAILY PO 04/03/20 09:00 04/07/20 08:45 Bisacodyl (Dulcolax Suppository) 10 mg DAILYPRN PRN ID CONSTIPATION 04/02/20 15:15 Brimonidine Tartrate (Alphagan P 0.1%) 1 drop BID OU 04/02/20 21:00 04/07/20 08:46 Clopidogrel Bisulfate (PLAVix) 75 mg DAILY PO 04/03/20 09:00 04/07/20 08:44 Dextrose (Dextrose 50%) 25 ml ASDIRECTED PRN IV SEE LABEL COMMENTS 04/02/20 15:15 Ferrous Gluconate (Fergon) 324 mg BID PO 04/02/20 21:00 04/07/20 08:45 Glucagon (Glucagon) 1 mg ASDIRECTED PRN SC SEE LABEL COMMENTS 04/02/20 15:15 Glucose (Glucose) 16 GM ASDIRECTED PRN PO SEE LABEL COMMENTS 04/02/20 15:15 Heparin Sodium (Porcine) (Heparin) 5,000 units Q8H SC 04/02/20 22:00 04/07/20 05:39 Insulin Detemir (Levemir Insulin) 20 units QHS SC 04/02/20 21:00 04/06/20 10:02 DC 04/05/20 20:23 Insulin Detemir (Levemir Insulin) 24 units QHS SC 04/06/20 21:00 04/06/20 21:19 Insulin Human Lispro (HumaLOG INSULIN) SEE PROTOCOL TABLE AC SC 04/02/20 17:30 04/07/20 08:44 Insulin Human Lispro (HumaLOG INSULIN) SEE PROTOCOL TABLE QHS SC 04/02/20 21:00 04/04/20 21:36 Ketoconazole (Nizoral) APPLY TO RASH ON THIG... BID TOP 04/02/20 21:00 04/07/20 08:49 Lactobacillus Acidophilus (Bacid) 1 ea WMHS PO 04/02/20 18:00 04/07/20 08:45 Latanoprost (Xalatan 0.005% Op Soln) 1 drop QHS OU 04/02/20 21:00 04/06/20 21:20 Magnesium Hydroxide (Milk Of Magnesia) 30 ml DAILYPRN PRN PO CONSTIPATION 04/02/20 15:15 Meropenem 1 gm/IV Miscellaneous Supplies 50 ml @ 100 mls/hr Q12H IV 04/02/20 16:00 04/03/20 15:59 DC 04/03/20 03:58 Multivitamins (Theragram-M) 1 tab DAILY PO 04/03/20 09:00 04/07/20 08:44 Oxycodone HCl (Roxicodone, Oxyir) 5 mg Q4HP PRN PO PAIN 04/02/20 15:15 Pantoprazole Sodium (Protonix) 40 mg DAILY PO 04/02/20 09:00 04/07/20 08:45 Senna/Docusate Sodium (Senokot S) 2 tab BID PO 04/02/20 21:00 04/06/20 07:29 YOSVANY GORMAN MD 12, 2021 10:43
[2020-04-07] MEDS: LEVEMIR (INSULIN DETEMIR) 1 UNITS/0.01ML SC SCH ×2 (12:49→21:30)
[2020-04-07 20:00] VITALS: BP 152/70
[2020-04-07] MEDS: LATANOPROST 0.005% OPHTH SOLN 2.5 ML OU SCH (21:31)
[2020-04-08] MEDS: HEPARIN SOD (PORCINE) 5000UNITS/ML 1ML VIAL/SYRINGE SC SCH ×3 (05:29→21:23)
[2020-04-08 05:55] VITALS: BP 112/61
[2020-04-08] MEDS: HumaLOG INSULIN (NovoLOG) PER UNIT SC SCH ×4 (07:42→20:21)
[2020-04-08] MEDS: ASPIRIN 81 MG ENTERIC TAB PO SCH (07:43)
[2020-04-08] MEDS: CLOPIDOGREL 75 MG TAB PO SCH (07:43)
[2020-04-08] MEDS: LEVEMIR (INSULIN DETEMIR) 1 UNITS/0.01ML SC SCH ×2 (07:43→21:23)
[2020-04-08] MEDS: MULTIVITAMINS/MINERALS THERAP 1 TAB PO SCH (07:43)
[2020-04-08] MEDS: FERROUS GLUCONATE 324 MG TAB PO SCH ×2 (07:43→21:22)
[2020-04-08] MEDS: ACETAMINOPHEN 500 MG TAB PO SCH ×3 (07:43→21:22)
[2020-04-08] MEDS: LACTOBACILLUS ACIDOPHILUS CAP (BACID) PO SCH ×4 (07:43→21:22)
[2020-04-08] MEDS: SENOKOT S TAB PO SCH ×2 (07:43→21:22)
[2020-04-08] MEDS: PANTOPRAZOLE 40MG TAB (PROTONIX) PO SCH (07:43)
[2020-04-08] MEDS: BRIMONIDINE 0.1% OPHTH SOLN 5 ML OU SCH ×2 (07:44→21:27)
[2020-04-08] MEDS: KETOCONAZOLE 2% CREAM TOP SCH ×2 (07:44→21:27)
[2020-04-08] MEDS: REMEDY PHYTOPLEX Z-GUARD PASTE 113GM TUBE (FROM STOREROOM PRODUCT) TOP SCH ×3 (07:44→21:24)
[2020-04-08 08:58] LABS: BASO # 0.1 10^3/uL (0.0-0.2); EOS # 0.6 10^3/uL (0.0-0.5); EOS % 10.1 % (0.0-3.0); HEMATOCRIT 29.2 % (42.0-52.0); HEMOGLOBIN 8.8 g/dl (13.5-17.5); LYMPH # 1.6 10^3/uL (1.5-5.0); MEAN CORPUSCULAR HEMOGLOBIN 28.8 pg (27.0-33.0); MEAN CORPUSCULAR HGB CONC 30.1 g/dl (32.0-36.5); MEAN CORPUSCULAR VOLUME 95.4 fl (80.0-96.0); MONO # 0.4 10^3/uL (0.0-0.8); MONO % 6.1 % (0.0-5.0); NEUTROPHILS # 3.1 10^3/uL (1.5-8.5); NEUTROPHILS % 54.3 % (36.0-66.0); PLATELET COUNT, AUTOMATED 487 10^3/uL (150-450); RED BLOOD COUNT 3.06 10^6/uL (4.30-6.10); WHITE BLOOD COUNT 5.8 10^3/uL (4.0-10.0)
[2020-04-08 09:28] LABS: BLOOD UREA NITROGEN 22 MG/DL (7-18); CALCIUM LEVEL 8.6 MG/DL (8.8-10.2); CARBON DIOXIDE LEVEL 28 MEQ/L (21-32); CHLORIDE LEVEL 104 MEQ/L (98-107); GLOMERULAR FILTRATION RATE > 60.0 (>42); GLUCOSE, FASTING 207 MG/DL (70-100); POTASSIUM SERUM 4.7 MEQ/L (3.5-5.1); SODIUM LEVEL 139 MEQ/L (136-145)
--- NOTE | 2020-04-08 12:48 | IPNPDOC ---
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 REVIEW OF SYSTEMS: The following is a completed review of systems and has been reviewed. Review of systems otherwise unremarkable. 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 PHYSICAL EXAMINATION: VITAL SIGNS: Please see below. GENERAL: Pleasant and cooperative. No acute distress. HEENT: PERRL. Extraocular movements intact. Clear conjunctiva CARDIOVASCULAR: Regular rate and rhythm. No murmurs, rubs, or gallops LUNGS: Clear to auscultation bilaterally. No wheezes. No rhonchi ABDOMEN: Soft, nontender, nondistended. Positive bowel sounds. Normal active bowel sounds NEUROLOGICAL: Alert and oriented times three. Cranial nerves II through XII grossly intact. Sensation grossly intact except diminished in distal LE EXTREMITIES: 5\5 strength bilateral upper extremities. 5/5 bilat hip flexors, knee extensors and flexors SKIN: groin erythematous rash (improving), right BKA with medial laceration (covered with optifoam) and blanchable erythema(improving), left BKA incision with no erythema, no ecchymosis or induration ASSESSMENT:74-year-old M with past medical history of DM and PAD who presents status post left BKA PLAN: 1. Rehab- PT/OT advance mobility and ADLs, stretch/maintain ROM/strengthen all 4 limbs, teach limb care and desensitization 2. Neuro- peripheral polyneuropathy celine to longstanding DM 3. Vasc- s/p left BKA s/p IVr antibiotics, CRP trending down, wound appears to be healing well, c/u ASA and Plavix- will confirmw ith vascular if ok to remove jose luis as patient 2 weeks post-op -vasc consulted, f/u as outpatient 4. Cardiac- hx of PAD on ASa and Plavix, will monitor BPs 5. Resp- Encourage incentive spirometry, monitor for infection 6. Endo- DM on Insulin, monitor and adjust dosing prn, mildly elevated fasting glucose levels, continue to adjust levemir dosing prn, c/u ISS 7. GI ppx- protonix 8. DVT ppx- heparin 9. Pain- tylenol and oxycodone 10. - monitor PVRs, voiding well 11. Heme- iron deficiency anemia, c/u oral iron, FOBT negative 12. Dispo- 04-15-20 to home at wheelchair level, progressing towards goals Allergies Coded Allergies: Penicillins (Verified Allergy, Mild, rash, 10/14/18) Vital Signs Vital Signs Date Time Temp Pulse Resp B/P (MAP) Pulse Ox O2 Delivery O2 Flow Rate FiO2 04/08/20 05:55 98.1 81 17 112/61 (78) 97 Room Air Laboratory Data CBC/BMP Laboratory Tests 04/08/20 08:31 Labs 24H Laboratory Tests 2 04/07/20 16:32: Bedside Glucose (Misc Panel) 159H 04/07/20 19:39: Bedside Glucose (Misc Panel) 151H 04/07/20 21:33: Bedside Glucose (Misc Panel) 238H 04/08/20 04:47: Bedside Glucose (Misc Panel) 177H 04/08/20 08:31: Immature Granulocyte % (Auto) 0.5, Neutrophils (%) (Auto) 54.3, Lymphocytes (%) (Auto) 28.0, Monocytes (%) (Auto) 6.1H, Eosinophils (%) (Auto) 10.1H, Basophils (%) (Auto) 1.0, Neutrophils # (Auto) 3.1, Lymphocytes # (Auto) 1.6, Monocytes # (Auto) 0.4, Eosinophils # (Auto) 0.6H, Basophils # (Auto) 0.1, Nucleated Red Blood Cells % (auto) 0.0, Anion Gap 7L, Glomerular Filtration Rate > 60.0, Calcium Level 8.6L 04/08/20 11:33: Bedside Glucose (Misc Panel) 230H Microbiology Microbiology 04/03/20 Stool Occult Blood (BRITNEY) - Final, Complete Current Medications Current Medications Current Medications Medications (Trade) Dose Ordered Sig/Anna Route PRN Reason Start Time Stop Time Status Last Admin Dose Admin Acetaminophen (Tylenol Tab) 1,000 mg TID PO 04/02/20 16:00 04/08/20 07:43 Aspirin (Ecotrin) 81 mg DAILY PO 04/03/20 09:00 04/08/20 07:43 Bisacodyl (Dulcolax Suppository) 10 mg DAILYPRN PRN [place] CONSTIPATION 04/02/20 15:15 Brimonidine Tartrate (Alphagan P 0.1%) 1 drop BID OU 04/02/20 21:00 04/08/20 07:44 Clopidogrel Bisulfate (PLAVix) 75 mg DAILY PO 04/03/20 09:00 04/08/20 07:43 Dextrose (Dextrose 50%) 25 ml ASDIRECTED PRN IV SEE LABEL COMMENTS 04/02/20 15:15 Ferrous Gluconate (Fergon) 324 mg BID PO 04/02/20 21:00 04/08/20 07:43 Glucagon (Glucagon) 1 mg ASDIRECTED PRN SC SEE LABEL COMMENTS 04/02/20 15:15 Glucose (Glucose) 16 GM ASDIRECTED PRN PO SEE LABEL COMMENTS 04/02/20 15:15 Heparin Sodium (Porcine) (Heparin) 5,000 units Q8H SC 04/02/20 22:00 04/08/20 05:29 Insulin Detemir (Levemir Insulin) 5 units DAILY SC 04/07/20 11:00 04/08/20 07:43 Insulin Detemir (Levemir Insulin) 20 units QHS SC 04/02/20 21:00 04/06/20 10:02 DC 04/05/20 20:23 Insulin Detemir (Levemir Insulin) 24 units QHS SC 04/06/20 21:00 04/07/20 10:41 DC 04/06/20 21:19 Insulin Detemir (Levemir Insulin) 26 units QHS SC 04/07/20 21:00 04/07/20 21:30 Insulin Human Lispro (HumaLOG INSULIN) SEE PROTOCOL TABLE AC SC 04/02/20 17:30 04/08/20 12:16 Insulin Human Lispro (HumaLOG INSULIN) SEE PROTOCOL TABLE QHS SC 04/02/20 21:00 04/04/20 21:36 Ketoconazole (Nizoral) APPLY TO RASH ON THIG... BID TOP 04/02/20 21:00 04/08/20 07:44 Lactobacillus Acidophilus (Bacid) 1 ea WMHS PO 04/02/20 18:00 04/08/20 07:43 Latanoprost (Xalatan 0.005% Op Soln) 1 drop QHS OU 04/02/20 21:00 04/07/20 21:31 Magnesium Hydroxide (Milk Of Magnesia) 30 ml DAILYPRN PRN PO CONSTIPATION 04/02/20 15:15 Meropenem 1 gm/IV Miscellaneous Supplies 50 ml @ 100 mls/hr Q12H IV 04/02/20 16:00 04/03/20 15:59 DC 04/03/20 03:58 Multivitamins (Theragram-M) 1 tab DAILY PO 04/03/20 09:00 04/08/20 07:43 Oxycodone HCl (Roxicodone, Oxyir) 5 mg Q4HP PRN PO PAIN 04/02/20 15:15 Pantoprazole Sodium (Protonix) 40 mg DAILY PO 04/02/20 09:00 04/08/20 07:43 Senna/Docusate Sodium (Senokot S) 2 tab BID PO 04/02/20 21:00 04/07/20 21:29 YOSVANY GORMAN MD Apr 08, 2020 12:48
[2020-04-08 14:00] VITALS: BP 128/70
[2020-04-08 20:00] VITALS: BP 141/63
[2020-04-08] MEDS: LATANOPROST 0.005% OPHTH SOLN 2.5 ML OU SCH (21:28)
[2020-04-09] MEDS: HEPARIN SOD (PORCINE) 5000UNITS/ML 1ML VIAL/SYRINGE SC SCH ×3 (05:24→20:49)
[2020-04-09 06:00] VITALS: BP 136/70
[2020-04-09] MEDS: BRIMONIDINE 0.1% OPHTH SOLN 5 ML OU SCH ×2 (06:00→20:50)
[2020-04-09] MEDS: PANTOPRAZOLE 40MG TAB (PROTONIX) PO SCH (08:49)
[2020-04-09] MEDS: CLOPIDOGREL 75 MG TAB PO SCH (08:49)
[2020-04-09] MEDS: FERROUS GLUCONATE 324 MG TAB PO SCH ×2 (08:49→20:48)
[2020-04-09] MEDS: MULTIVITAMINS/MINERALS THERAP 1 TAB PO SCH (08:49)
[2020-04-09] MEDS: LACTOBACILLUS ACIDOPHILUS CAP (BACID) PO SCH ×4 (08:49→20:48)
[2020-04-09] MEDS: ASPIRIN 81 MG ENTERIC TAB PO SCH (08:49)
[2020-04-09] MEDS: LEVEMIR (INSULIN DETEMIR) 1 UNITS/0.01ML SC SCH ×2 (08:50→20:50)
[2020-04-09] MEDS: REMEDY PHYTOPLEX Z-GUARD PASTE 113GM TUBE (FROM STOREROOM PRODUCT) TOP SCH ×3 (08:54→20:51)
[2020-04-09] MEDS: ACETAMINOPHEN 500 MG TAB PO SCH ×3 (08:59→20:48)
[2020-04-09] MEDS: SENOKOT S TAB PO SCH ×2 (09:01→20:48)
[2020-04-09] MEDS: KETOCONAZOLE 2% CREAM TOP SCH ×2 (09:04→20:50)
[2020-04-09] MEDS: HumaLOG INSULIN (NovoLOG) PER UNIT SC SCH ×4 (09:47→20:49)
--- NOTE | 2020-04-09 11:29 | IPNPDOC ---
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 REVIEW OF SYSTEMS: The following is a completed review of systems and has been reviewed. Review of systems otherwise unremarkable. 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 PHYSICAL EXAMINATION: VITAL SIGNS: Please see below. GENERAL: Pleasant and cooperative. No acute distress. HEENT: PERRL. Extraocular movements intact. Clear conjunctiva CARDIOVASCULAR: Regular rate and rhythm. No murmurs, rubs, or gallops LUNGS: Clear to auscultation bilaterally. No wheezes. No rhonchi ABDOMEN: Soft, nontender, nondistended. Positive bowel sounds. Normal active bowel sounds NEUROLOGICAL: Alert and oriented times three. Cranial nerves II through XII grossly intact. Sensation grossly intact except diminished in distal LE EXTREMITIES: 5\5 strength bilateral upper extremities. 5/5 bilat hip flexors, knee extensors and flexors SKIN: groin erythematous rash (improving), right BKA with medial laceration (covered with optifoam) and blanchable erythema(improving), left BKA incision with no erythema, no ecchymosis or induration ASSESSMENT:74-year-old M with past medical history of DM and PAD who presents status post left BKA PLAN: 1. Rehab- PT/OT advance mobility and ADLs, stretch/maintain ROM/strengthen all 4 limbs, teach limb care and desensitization 2. Neuro- peripheral polyneuropathy due to longstanding DM 3. Vasc- s/p left BKA s/p IVr antibiotics, CRP trending down, wound appears to be healing well, c/u ASA and Plavix- jose luis to be removed today -vasc consulted, f/u as outpatient 4. Cardiac- hx of PAD on ASa and Plavix, will monitor BPs 5. Resp- Encourage incentive spirometry, monitor for infection 6. Endo- DM on Insulin, monitor and adjust dosing prn, mildly elevated fasting glucose levels, continue to adjust levemir dosing prn, c/u ISS 7. GI ppx- protonix 8. DVT ppx- heparin 9. Pain- tylenol and oxycodone 10. - monitor PVRs, voiding well 11. Heme- iron deficiency anemia, c/u oral iron, FOBT negative 12. Dispo- 04-15-20 to home at wheelchair level, progressing towards goals Allergies Coded Allergies: Penicillins (Verified Allergy, Mild, rash, 10/14/18) Vital Signs Vital Signs Date Time Temp Pulse Resp B/P (MAP) Pulse Ox O2 Delivery O2 Flow Rate FiO2 04/09/20 06:00 98.1 82 18 136/70 (92) 95 Room Air Laboratory Data Labs 24H Laboratory Tests 2 04/08/20 11:33: Bedside Glucose (Misc Panel) 230H 04/08/20 16:27: Bedside Glucose (Misc Panel) 166H 04/08/20 19:57: Bedside Glucose (Misc Panel) 243H 04/09/20 06:29: Bedside Glucose (Misc Panel) 110 04/09/20 11:13: Bedside Glucose (Misc Panel) 127H Microbiology Microbiology 04/03/20 Stool Occult Blood (BRITNEY) - Final, Complete Current Medications Current Medications Current Medications Medications (Trade) Dose Ordered Sig/Anna Route PRN Reason Start Time Stop Time Status Last Admin Dose Admin Acetaminophen (Tylenol Tab) 1,000 mg TID PO 04/02/20 16:00 04/09/20 08:59 Aspirin (Ecotrin) 81 mg DAILY PO 04/03/20 09:00 04/09/20 08:49 Bisacodyl (Dulcolax Suppository) 10 mg DAILYPRN PRN [place] CONSTIPATION 04/02/20 15:15 Brimonidine Tartrate (Alphagan P 0.1%) 1 drop BID OU 04/02/20 21:00 04/09/20 06:00 Clopidogrel Bisulfate (PLAVix) 75 mg DAILY PO 04/03/20 09:00 04/09/20 08:49 Dextrose (Dextrose 50%) 25 ml ASDIRECTED PRN IV SEE LABEL COMMENTS 04/02/20 15:15 Ferrous Gluconate (Fergon) 324 mg BID PO 04/02/20 21:00 04/09/20 08:49 Glucagon (Glucagon) 1 mg ASDIRECTED PRN SC SEE LABEL COMMENTS 04/02/20 15:15 Glucose (Glucose) 16 GM ASDIRECTED PRN PO SEE LABEL COMMENTS 04/02/20 15:15 Heparin Sodium (Porcine) (Heparin) 5,000 units Q8H SC 04/02/20 22:00 04/09/20 05:24 Insulin Detemir (Levemir Insulin) 5 units DAILY SC 04/07/20 11:00 04/09/20 08:50 Insulin Detemir (Levemir Insulin) 20 units QHS SC 04/02/20 21:00 04/06/20 10:02 DC 04/05/20 20:23 Insulin Detemir (Levemir Insulin) 24 units QHS SC 04/06/20 21:00 04/07/20 10:41 DC 04/06/20 21:19 Insulin Detemir (Levemir Insulin) 26 units QHS SC 04/07/20 21:00 04/08/20 21:23 Insulin Human Lispro (HumaLOG INSULIN) SEE PROTOCOL TABLE AC SC 04/02/20 17:30 04/09/20 09:47 Insulin Human Lispro (HumaLOG INSULIN) SEE PROTOCOL TABLE QHS SC 04/02/20 21:00 04/04/20 21:36 Ketoconazole (Nizoral) APPLY TO RASH ON THIG... BID TOP 04/02/20 21:00 04/09/20 09:04 Lactobacillus Acidophilus (Bacid) 1 ea WMHS PO 04/02/20 18:00 04/09/20 08:49 Latanoprost (Xalatan 0.005% Op Soln) 1 drop QHS OU 04/02/20 21:00 04/08/20 21:28 Magnesium Hydroxide (Milk Of Magnesia) 30 ml DAILYPRN PRN PO CONSTIPATION 04/02/20 15:15 Meropenem 1 gm/IV Miscellaneous Supplies 50 ml @ 100 mls/hr Q12H IV 04/02/20 16:00 04/03/20 15:59 DC 04/03/20 03:58 Multivitamins (Theragram-M) 1 tab DAILY PO 04/03/20 09:00 04/09/20 08:49 Oxycodone HCl (Roxicodone, Oxyir) 5 mg Q4HP PRN PO PAIN 04/02/20 15:15 Pantoprazole Sodium (Protonix) 40 mg DAILY PO 04/02/20 09:00 04/09/20 08:49 Senna/Docusate Sodium (Senokot S) 2 tab BID PO 04/02/20 21:00 04/09/20 09:01 YOSVANY GORMAN MD Apr 09, 2020 11:29
[2020-04-09 14:00] VITALS: BP 129/81
[2020-04-09 20:15] VITALS: BP 134/62
[2020-04-09] MEDS: LATANOPROST 0.005% OPHTH SOLN 2.5 ML OU SCH (20:51)
[2020-04-10] MEDS: HEPARIN SOD (PORCINE) 5000UNITS/ML 1ML VIAL/SYRINGE SC SCH ×3 (05:43→20:40)
[2020-04-10 06:00] VITALS: BP 115/63
[2020-04-10] MEDS: LEVEMIR (INSULIN DETEMIR) 1 UNITS/0.01ML SC SCH ×2 (07:31→20:34)
[2020-04-10] MEDS: HumaLOG INSULIN (NovoLOG) PER UNIT SC SCH ×4 (07:31→20:33)
[2020-04-10] MEDS: CLOPIDOGREL 75 MG TAB PO SCH (07:32)
[2020-04-10] MEDS: SENOKOT S TAB PO SCH ×2 (07:32→20:33)
[2020-04-10] MEDS: ACETAMINOPHEN 500 MG TAB PO SCH ×3 (07:32→20:33)
[2020-04-10] MEDS: ASPIRIN 81 MG ENTERIC TAB PO SCH (07:32)
[2020-04-10] MEDS: LACTOBACILLUS ACIDOPHILUS CAP (BACID) PO SCH ×4 (07:32→20:33)
[2020-04-10] MEDS: MULTIVITAMINS/MINERALS THERAP 1 TAB PO SCH (07:32)
[2020-04-10] MEDS: PANTOPRAZOLE 40MG TAB (PROTONIX) PO SCH (07:32)
[2020-04-10] MEDS: BRIMONIDINE 0.1% OPHTH SOLN 5 ML OU SCH ×2 (07:33→20:34)
[2020-04-10] MEDS: REMEDY PHYTOPLEX Z-GUARD PASTE 113GM TUBE (FROM STOREROOM PRODUCT) TOP SCH ×3 (07:33→20:35)
[2020-04-10] MEDS: KETOCONAZOLE 2% CREAM TOP SCH ×2 (07:33→20:35)
[2020-04-10] MEDS: FERROUS GLUCONATE 324 MG TAB PO SCH ×2 (07:36→20:33)
[2020-04-10 08:18] LABS: BASO # 0.1 10^3/uL (0.0-0.2); BASO % 1.1 % (0.0-1.0); EOS # 0.9 10^3/uL (0.0-0.5); EOS % 13.9 % (0.0-3.0); HEMATOCRIT 32.6 % (42.0-52.0); HEMOGLOBIN 9.7 g/dl (13.5-17.5); LYMPH # 1.9 10^3/uL (1.5-5.0); LYMPH % 30.7 % (24.0-44.0); MEAN CORPUSCULAR HEMOGLOBIN 28.1 pg (27.0-33.0); MEAN CORPUSCULAR HGB CONC 29.8 g/dl (32.0-36.5); MEAN CORPUSCULAR VOLUME 94.5 fl (80.0-96.0); MONO # 0.5 10^3/uL (0.0-0.8); MONO % 7.3 % (0.0-5.0); NEUTROPHILS # 2.9 10^3/uL (1.5-8.5); NEUTROPHILS % 46.7 % (36.0-66.0); PLATELET COUNT, AUTOMATED 483 10^3/uL (150-450); RED BLOOD COUNT 3.45 10^6/uL (4.30-6.10); WHITE BLOOD COUNT 6.2 10^3/uL (4.0-10.0)
[2020-04-10 08:56] LABS: BLOOD UREA NITROGEN 19 MG/DL (7-18); CALCIUM LEVEL 8.7 MG/DL (8.8-10.2); CARBON DIOXIDE LEVEL 29 MEQ/L (21-32); CHLORIDE LEVEL 104 MEQ/L (98-107); CREATININE FOR GFR 1.11 MG/DL (0.70-1.30); GLOMERULAR FILTRATION RATE > 60.0 (>42); GLUCOSE, FASTING 176 MG/DL (70-100); POTASSIUM SERUM 5.4 MEQ/L (3.5-5.1); SODIUM LEVEL 138 MEQ/L (136-145)
[2020-04-10] MEDS ORDERED: SOD POLYSTYRENE SULFONATE SUSP 15 GM/60 ML UD PO ONE (11:00)
[2020-04-10 14:00] VITALS: BP 109/58
[2020-04-10 20:00] VITALS: BP 131/61
[2020-04-10] MEDS: LATANOPROST 0.005% OPHTH SOLN 2.5 ML OU SCH (20:34)
[2020-04-11] MEDS: HEPARIN SOD (PORCINE) 5000UNITS/ML 1ML VIAL/SYRINGE SC SCH ×3 (05:23→20:12)
[2020-04-11 05:38] VITALS: BP 123/59
[2020-04-11] MEDS: SENOKOT S TAB PO SCH ×2 (08:24→20:12)
[2020-04-11] MEDS: ACETAMINOPHEN 500 MG TAB PO SCH ×3 (08:24→20:12)
[2020-04-11] MEDS: ASPIRIN 81 MG ENTERIC TAB PO SCH (08:24)
[2020-04-11] MEDS: LACTOBACILLUS ACIDOPHILUS CAP (BACID) PO SCH ×4 (08:24→20:12)
[2020-04-11] MEDS: LEVEMIR (INSULIN DETEMIR) 1 UNITS/0.01ML SC SCH ×2 (08:24→20:11)
[2020-04-11] MEDS: FERROUS GLUCONATE 324 MG TAB PO SCH ×2 (08:24→20:12)
[2020-04-11] MEDS: MULTIVITAMINS/MINERALS THERAP 1 TAB PO SCH (08:24)
[2020-04-11] MEDS: PANTOPRAZOLE 40MG TAB (PROTONIX) PO SCH (08:24)
[2020-04-11] MEDS: CLOPIDOGREL 75 MG TAB PO SCH (08:24)
[2020-04-11 08:25] LABS: BLOOD UREA NITROGEN 18 MG/DL (7-18); CALCIUM LEVEL 8.3 MG/DL (8.8-10.2); CARBON DIOXIDE LEVEL 29 MEQ/L (21-32); CHLORIDE LEVEL 101 MEQ/L (98-107); CREATININE FOR GFR 1.21 MG/DL (0.70-1.30); GLOMERULAR FILTRATION RATE > 60.0 (>42); GLUCOSE, FASTING 188 MG/DL (70-100); POTASSIUM SERUM 4.6 MEQ/L (3.5-5.1); SODIUM LEVEL 136 MEQ/L (136-145)
[2020-04-11] MEDS: KETOCONAZOLE 2% CREAM TOP SCH ×2 (08:25→20:13)
[2020-04-11] MEDS: BRIMONIDINE 0.1% OPHTH SOLN 5 ML OU SCH ×2 (08:25→20:13)
[2020-04-11] MEDS: HumaLOG INSULIN (NovoLOG) PER UNIT SC SCH ×4 (08:25→20:13)
[2020-04-11] MEDS: REMEDY PHYTOPLEX Z-GUARD PASTE 113GM TUBE (FROM STOREROOM PRODUCT) TOP SCH ×3 (08:26→20:13)
[2020-04-11 13:44] VITALS: BP 100/59
--- NOTE | 2020-04-11 14:00 | IPNPDOC ---
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 REVIEW OF SYSTEMS: The following is a completed review of systems and has been reviewed. Review of systems otherwise unremarkable. 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 PHYSICAL EXAMINATION: VITAL SIGNS: Please see below. GENERAL: Pleasant and cooperative. No acute distress. HEENT: PERRL. Extraocular movements intact. Clear conjunctiva CARDIOVASCULAR: Regular rate and rhythm. No murmurs, rubs, or gallops LUNGS: Clear to auscultation bilaterally. No wheezes. No rhonchi ABDOMEN: Soft, nontender, nondistended. Positive bowel sounds. Normal active bowel sounds NEUROLOGICAL: Alert and oriented times three. Cranial nerves II through XII grossly intact. Sensation grossly intact except diminished in distal LE EXTREMITIES: 5\5 strength bilateral upper extremities. 5/5 bilat hip flexors, knee extensors and flexors SKIN: groin erythematous rash (improving), right BKA with medial laceration (covered with optifoam) and blanchable erythema(improving), left BKA incision with no erythema, no ecchymosis or induration ASSESSMENT:74-year-old M with past medical history of DM and PAD who presents status post left BKA PLAN: 1. Rehab- PT/OT advance mobility and ADLs, stretch/maintain ROM/strengthen all 4 limbs, teach limb care and desensitization 2. Neuro- peripheral polyneuropathy due to longstanding DM 3. Vasc- s/p left BKA s/p IVr antibiotics, CRP trending down, wound appears to be healing well, c/u ASA and Plavix- jose luis to be removed today -vasc consulted, f/u as outpatient 4. Cardiac- hx of PAD on ASa and Plavix, will monitor BPs 5. Resp- Encourage incentive spirometry, monitor for infection 6. Endo- DM on Insulin, monitor and adjust dosing prn, mildly elevated fasting glucose levels, continue to adjust levemir dosing prn, c/u ISS 7. GI ppx- protonix 8. DVT ppx- heparin 9. Pain- tylenol and oxycodone 10. - monitor PVRs, voiding well 11. Heme- iron deficiency anemia, c/u oral iron, FOBT negative 12. Dispo- 04-15-20 to home at wheelchair level, progressing towards goals Allergies Coded Allergies: Penicillins (Verified Allergy, Mild, rash, 10/14/18) Vital Signs Vital Signs Date Time Temp Pulse Resp B/P (MAP) Pulse Ox O2 Delivery O2 Flow Rate FiO2 04/11/20 13:44 96.9 88 20 100/59 (73) 99 Room Air Laboratory Data CBC/BMP Laboratory Tests 04/11/20 07:12 Labs 24H Laboratory Tests 2 04/10/20 15:56: Bedside Glucose (Misc Panel) 158H 04/10/20 19:53: Bedside Glucose (Misc Panel) 216H 04/11/20 04:58: Bedside Glucose (Misc Panel) 158H 04/11/20 07:12: Anion Gap 6L, Glomerular Filtration Rate > 60.0, Calcium Level 8.3L 04/11/20 12:20: Bedside Glucose (Misc Panel) 157H Microbiology Microbiology 04/03/20 Stool Occult Blood (BRITNEY) - Final, Complete Current Medications Current Medications Current Medications Medications (Trade) Dose Ordered Sig/Anna Route PRN Reason Start Time Stop Time Status Last Admin Dose Admin Acetaminophen (Tylenol Tab) 1,000 mg TID PO 04/02/20 16:00 04/11/20 08:24 Aspirin (Ecotrin) 81 mg DAILY PO 04/03/20 09:00 04/11/20 08:24 Bisacodyl (Dulcolax Suppository) 10 mg DAILYPRN PRN [place] CONSTIPATION 04/02/20 15:15 Brimonidine Tartrate (Alphagan P 0.1%) 1 drop BID OU 04/02/20 21:00 04/11/20 08:25 Clopidogrel Bisulfate (PLAVix) 75 mg DAILY PO 04/03/20 09:00 04/11/20 08:24 Dextrose (Dextrose 50%) 25 ml ASDIRECTED PRN IV SEE LABEL COMMENTS 04/02/20 15:15 Ferrous Gluconate (Fergon) 324 mg BID PO 04/02/20 21:00 04/11/20 08:24 Glucagon (Glucagon) 1 mg ASDIRECTED PRN SC SEE LABEL COMMENTS 04/02/20 15:15 Glucose (Glucose) 16 GM ASDIRECTED PRN PO SEE LABEL COMMENTS 04/02/20 15:15 Heparin Sodium (Porcine) (Heparin) 5,000 units Q8H SC 04/02/20 22:00 04/11/20 13:56 Insulin Detemir (Levemir Insulin) 5 units DAILY SC 04/07/20 11:00 04/11/20 08:24 Insulin Detemir (Levemir Insulin) 20 units QHS SC 04/02/20 21:00 04/06/20 10:02 DC 04/05/20 20:23 Insulin Detemir (Levemir Insulin) 24 units QHS SC 04/06/20 21:00 04/07/20 10:41 DC 04/06/20 21:19 Insulin Detemir (Levemir Insulin) 26 units QHS SC 04/07/20 21:00 04/10/20 20:34 Insulin Human Lispro (HumaLOG INSULIN) SEE PROTOCOL TABLE AC SC 04/02/20 17:30 04/11/20 12:46 Insulin Human Lispro (HumaLOG INSULIN) SEE PROTOCOL TABLE QHS SC 04/02/20 21:00 04/09/20 20:49 Ketoconazole (Nizoral) APPLY TO RASH ON THIG... BID TOP 04/02/20 21:00 04/11/20 08:25 Lactobacillus Acidophilus (Bacid) 1 ea WMHS PO 04/02/20 18:00 04/11/20 12:46 Latanoprost (Xalatan 0.005% Op Soln) 1 drop QHS OU 04/02/20 21:00 04/10/20 20:34 Magnesium Hydroxide (Milk Of Magnesia) 30 ml DAILYPRN PRN PO CONSTIPATION 04/02/20 15:15 Meropenem 1 gm/IV Miscellaneous Supplies 50 ml @ 100 mls/hr Q12H IV 04/02/20 16:00 04/03/20 15:59 DC 04/03/20 03:58 Multivitamins (Theragram-M) 1 tab DAILY PO 04/03/20 09:00 04/11/20 08:24 Oxycodone HCl (Roxicodone, Oxyir) 5 mg Q4HP PRN PO PAIN 04/02/20 15:15 Pantoprazole Sodium (Protonix) 40 mg DAILY PO 04/02/20 09:00 04/11/20 08:24 Senna/Docusate Sodium (Senokot S) 2 tab BID PO 04/02/20 21:00 04/11/20 08:24 YOSVANY GORMAN MD Apr 11, 2020 14:00
[2020-04-11 20:00] VITALS: BP 141/65
[2020-04-11] MEDS: LATANOPROST 0.005% OPHTH SOLN 2.5 ML OU SCH (20:13)
[2020-04-12] MEDS: HEPARIN SOD (PORCINE) 5000UNITS/ML 1ML VIAL/SYRINGE SC SCH ×3 (05:22→20:25)
[2020-04-12 06:00] VITALS: BP 138/69
[2020-04-12] MEDS: SENOKOT S TAB PO SCH ×2 (08:12→20:26)
[2020-04-12] MEDS: HumaLOG INSULIN (NovoLOG) PER UNIT SC SCH ×4 (08:12→20:26)
[2020-04-12] MEDS: BRIMONIDINE 0.1% OPHTH SOLN 5 ML OU SCH ×2 (08:13→20:25)
[2020-04-12] MEDS: ACETAMINOPHEN 500 MG TAB PO SCH ×3 (08:13→20:24)
[2020-04-12] MEDS: ASPIRIN 81 MG ENTERIC TAB PO SCH (08:13)
[2020-04-12] MEDS: LEVEMIR (INSULIN DETEMIR) 1 UNITS/0.01ML SC SCH ×2 (08:13→20:25)
[2020-04-12] MEDS: FERROUS GLUCONATE 324 MG TAB PO SCH ×2 (08:13→20:24)
[2020-04-12] MEDS: CLOPIDOGREL 75 MG TAB PO SCH (08:13)
[2020-04-12] MEDS: PANTOPRAZOLE 40MG TAB (PROTONIX) PO SCH (08:13)
[2020-04-12] MEDS: LACTOBACILLUS ACIDOPHILUS CAP (BACID) PO SCH ×4 (08:13→20:24)
[2020-04-12] MEDS: MULTIVITAMINS/MINERALS THERAP 1 TAB PO SCH (08:13)
[2020-04-12] MEDS: KETOCONAZOLE 2% CREAM TOP SCH ×2 (08:14→20:26)
[2020-04-12] MEDS: REMEDY PHYTOPLEX Z-GUARD PASTE 113GM TUBE (FROM STOREROOM PRODUCT) TOP SCH ×3 (08:14→20:26)
[2020-04-12 14:00] VITALS: BP 142/67
[2020-04-12 20:00] VITALS: BP 143/69
[2020-04-12] MEDS: LATANOPROST 0.005% OPHTH SOLN 2.5 ML OU SCH (20:25)
[2020-04-13] MEDS: HEPARIN SOD (PORCINE) 5000UNITS/ML 1ML VIAL/SYRINGE SC SCH ×3 (05:42→21:26)
[2020-04-13 06:05] VITALS: BP 140/66
[2020-04-13] MEDS: HumaLOG INSULIN (NovoLOG) PER UNIT SC SCH ×4 (07:43→21:26)
[2020-04-13] MEDS: SENOKOT S TAB PO SCH ×2 (07:44→21:29)
[2020-04-13] MEDS: LEVEMIR (INSULIN DETEMIR) 1 UNITS/0.01ML SC SCH ×2 (07:44→21:27)
[2020-04-13] MEDS: PANTOPRAZOLE 40MG TAB (PROTONIX) PO SCH (07:46)
[2020-04-13] MEDS: FERROUS GLUCONATE 324 MG TAB PO SCH ×2 (07:46→21:28)
[2020-04-13] MEDS: ASPIRIN 81 MG ENTERIC TAB PO SCH (07:46)
[2020-04-13] MEDS: LACTOBACILLUS ACIDOPHILUS CAP (BACID) PO SCH ×4 (07:46→21:29)
[2020-04-13] MEDS: CLOPIDOGREL 75 MG TAB PO SCH (07:46)
[2020-04-13] MEDS: ACETAMINOPHEN 500 MG TAB PO SCH ×3 (07:47→21:28)
[2020-04-13] MEDS: MULTIVITAMINS/MINERALS THERAP 1 TAB PO SCH (07:47)
[2020-04-13] MEDS: BRIMONIDINE 0.1% OPHTH SOLN 5 ML OU SCH ×2 (07:48→21:31)
[2020-04-13] MEDS: KETOCONAZOLE 2% CREAM TOP SCH ×2 (07:49→21:32)
[2020-04-13] MEDS: REMEDY PHYTOPLEX Z-GUARD PASTE 113GM TUBE (FROM STOREROOM PRODUCT) TOP SCH ×3 (07:51→21:31)
[2020-04-13 08:03] LABS: BASO # 0.1 10^3/uL (0.0-0.2); BASO % 1.2 % (0.0-1.0); EOS # 0.7 10^3/uL (0.0-0.5); EOS % 12.2 % (0.0-3.0); HEMATOCRIT 32.3 % (42.0-52.0); HEMOGLOBIN 9.4 g/dl (13.5-17.5); LYMPH # 1.5 10^3/uL (1.5-5.0); LYMPH % 25.8 % (24.0-44.0); MEAN CORPUSCULAR HEMOGLOBIN 27.6 pg (27.0-33.0); MEAN CORPUSCULAR HGB CONC 29.1 g/dl (32.0-36.5); MONO # 0.5 10^3/uL (0.0-0.8); MONO % 8.7 % (0.0-5.0); NEUTROPHILS # 2.9 10^3/uL (1.5-8.5); NEUTROPHILS % 51.2 % (36.0-66.0); PLATELET COUNT, AUTOMATED 386 10^3/uL (150-450); WHITE BLOOD COUNT 5.7 10^3/uL (4.0-10.0)
[2020-04-13 08:28] LABS: BLOOD UREA NITROGEN 18 MG/DL (7-18); CALCIUM LEVEL 9.1 MG/DL (8.8-10.2); CARBON DIOXIDE LEVEL 29 MEQ/L (21-32); CHLORIDE LEVEL 104 MEQ/L (98-107); CREATININE FOR GFR 1.15 MG/DL (0.70-1.30); GLOMERULAR FILTRATION RATE > 60.0 (>42); GLUCOSE, FASTING 167 MG/DL (70-100); POTASSIUM SERUM 4.5 MEQ/L (3.5-5.1); SODIUM LEVEL 138 MEQ/L (136-145)
[2020-04-13 14:00] VITALS: BP 125/62
[2020-04-13 20:15] VITALS: BP 158/78
[2020-04-13] MEDS: LATANOPROST 0.005% OPHTH SOLN 2.5 ML OU SCH (21:31)
[2020-04-14 05:13] VITALS: BP 151/73
[2020-04-14] MEDS: HEPARIN SOD (PORCINE) 5000UNITS/ML 1ML VIAL/SYRINGE SC SCH ×3 (06:08→21:34)
[2020-04-14] MEDS: LACTOBACILLUS ACIDOPHILUS CAP (BACID) PO SCH ×4 (07:23→21:32)
[2020-04-14] MEDS: HumaLOG INSULIN (NovoLOG) PER UNIT SC SCH ×4 (07:24→21:34)
[2020-04-14] MEDS: ASPIRIN 81 MG ENTERIC TAB PO SCH (07:43)
[2020-04-14] MEDS: CLOPIDOGREL 75 MG TAB PO SCH (07:43)
[2020-04-14] MEDS: MULTIVITAMINS/MINERALS THERAP 1 TAB PO SCH (07:43)
[2020-04-14] MEDS: ACETAMINOPHEN 500 MG TAB PO SCH ×3 (07:44→21:32)
[2020-04-14] MEDS: FERROUS GLUCONATE 324 MG TAB PO SCH ×2 (07:44→21:32)
[2020-04-14] MEDS: PANTOPRAZOLE 40MG TAB (PROTONIX) PO SCH (07:44)
[2020-04-14] MEDS: SENOKOT S TAB PO SCH ×2 (07:44→21:00)
[2020-04-14] MEDS: KETOCONAZOLE 2% CREAM TOP SCH ×2 (07:45→21:35)
[2020-04-14] MEDS: LEVEMIR (INSULIN DETEMIR) 1 UNITS/0.01ML SC SCH ×2 (07:45→21:33)
[2020-04-14] MEDS: REMEDY PHYTOPLEX Z-GUARD PASTE 113GM TUBE (FROM STOREROOM PRODUCT) TOP SCH ×3 (07:46→21:34)
[2020-04-14] MEDS: BRIMONIDINE 0.1% OPHTH SOLN 5 ML OU SCH ×2 (07:46→18:29)
--- NOTE | 2020-04-14 09:56 | IPNPDOC ---
PM&R Progress Note DATE OF SERVICE: Apr 14, 2020 [employer] Progress Note Subjective: Patient seen in his room stating he wishes he could stay here longer for rehab, but understands he will need an extended stay somewhere since his goal is to be able to work on gait training with new prosthetic. REVIEW OF SYSTEMS: The following is a completed review of systems and has been reviewed. Review of systems otherwise unremarkable. 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 PHYSICAL EXAMINATION: VITAL SIGNS: Please see below. GENERAL: Pleasant and cooperative. No acute distress. HEENT: PERRL. Extraocular movements intact. Clear conjunctiva CARDIOVASCULAR: Regular rate and rhythm. No murmurs, rubs, or gallops LUNGS: Clear to auscultation bilaterally. No wheezes. No rhonchi ABDOMEN: Soft, nontender, nondistended. Positive bowel sounds. Normal active bowel sounds NEUROLOGICAL: Alert and oriented times three. Cranial nerves II through XII grossly intact. Sensation grossly intact except diminished in distal LE EXTREMITIES: 5\5 strength bilateral upper extremities. 5/5 bilat hip flexors, knee extensors and flexors SKIN: groin erythematous rash (improving), right BKA with medial laceration (covered with optifoam) and blanchable erythema(improving), left BKA incision with no erythema, no ecchymosis or induration ASSESSMENT:74-year-old M with past medical history of DM and PAD who presents status post left BKA PLAN: 1. Rehab- PT/OT advance mobility and ADLs, stretch/maintain ROM/strengthen all 4 limbs, teach limb care and desensitization 2. Neuro- peripheral polyneuropathy due to longstanding DM 3. Vasc- s/p left BKA s/p IVr antibiotics, CRP trending down, wound appears to be healing well, c/u ASA and Plavix- jose luis removed, will d/c sutures prior to d/c -vasc consulted, f/u as outpatient 4. Cardiac- hx of PAD on ASa and Plavix, will monitor BPs 5. Resp- Encourage incentive spirometry, monitor for infection 6. Endo- DM on Insulin, monitor and adjust dosing prn, mildly elevated fasting glucose levels, continue to adjust levemir dosing prn, c/u ISS 7. GI ppx- protonix 8. DVT ppx- heparin 9. Pain- tylenol and oxycodone 10. - monitor PVRs, voiding well 11. Heme- iron deficiency anemia, c/u oral iron, FOBT negative 12. Dispo- 04-15-20 to home at wheelchair level, progressing towards goals Allergies Coded Allergies: Penicillins (Verified Allergy, Mild, rash, 10/14/18) Vital Signs Vital Signs Date Time Temp Pulse Resp B/P (MAP) Pulse Ox O2 Delivery O2 Flow Rate FiO2 04/14/20 05:13 97.7 70 18 151/73 (99) 96 Room Air Laboratory Data Labs 24H Laboratory Tests 2 04/13/20 10:55: Bedside Glucose (Misc Panel) 263H 04/13/20 16:11: Bedside Glucose (Misc Panel) 96 04/13/20 16:39: Bedside Glucose (Misc Panel) 92 04/13/20 19:34: Bedside Glucose (Misc Panel) 277H 04/14/20 06:23: Bedside Glucose (Misc Panel) 115H Current Medications Current Medications Current Medications Medications (Trade) Dose Ordered Sig/Anna Route PRN Reason Start Time Stop Time Status Last Admin Dose Admin Acetaminophen (Tylenol Tab) 1,000 mg TID PO 04/02/20 16:00 04/14/20 07:44 Aspirin (Ecotrin) 81 mg DAILY PO 04/03/20 09:00 04/14/20 07:43 Bisacodyl (Dulcolax Suppository) 10 mg DAILYPRN PRN [place] CONSTIPATION 04/02/20 15:15 Brimonidine Tartrate (Alphagan P 0.1%) 1 drop BID OU 04/02/20 21:00 04/14/20 07:46 Clopidogrel Bisulfate (PLAVix) 75 mg DAILY PO 04/03/20 09:00 04/14/20 07:43 Dextrose (Dextrose 50%) 25 ml ASDIRECTED PRN IV SEE LABEL COMMENTS 04/02/20 15:15 Ferrous Gluconate (Fergon) 324 mg BID PO 04/02/20 21:00 04/14/20 07:44 Glucagon (Glucagon) 1 mg ASDIRECTED PRN SC SEE LABEL COMMENTS 04/02/20 15:15 Glucose (Glucose) 16 GM ASDIRECTED PRN PO SEE LABEL COMMENTS 04/02/20 15:15 Heparin Sodium (Porcine) (Heparin) 5,000 units Q8H SC 04/02/20 22:00 04/14/20 06:08 Insulin Detemir (Levemir Insulin) 5 units DAILY SC 04/07/20 11:00 04/14/20 07:45 Insulin Detemir (Levemir Insulin) 20 units QHS SC 04/02/20 21:00 04/06/20 10:02 DC 04/05/20 20:23 Insulin Detemir (Levemir Insulin) 24 units QHS SC 04/06/20 21:00 04/07/20 10:41 DC 04/06/20 21:19 Insulin Detemir (Levemir Insulin) 26 units QHS SC 04/07/20 21:00 04/13/20 21:27 Insulin Human Lispro (HumaLOG INSULIN) SEE PROTOCOL TABLE AC SC 04/02/20 17:30 04/14/20 07:24 Insulin Human Lispro (HumaLOG INSULIN) SEE PROTOCOL TABLE QHS SC 04/02/20 21:00 04/13/20 21:26 Ketoconazole (Nizoral) APPLY TO RASH ON THIG... BID TOP 04/02/20 21:00 04/14/20 07:45 Lactobacillus Acidophilus (Bacid) 1 ea WMHS PO 04/02/20 18:00 04/14/20 07:23 Latanoprost (Xalatan 0.005% Op Soln) 1 drop QHS OU 04/02/20 21:00 04/13/20 21:31 Magnesium Hydroxide (Milk Of Magnesia) 30 ml DAILYPRN PRN PO CONSTIPATION 04/02/20 15:15 Meropenem 1 gm/IV Miscellaneous Supplies 50 ml @ 100 mls/hr Q12H IV 04/02/20 16:00 04/03/20 15:59 DC 04/03/20 03:58 Multivitamins (Theragram-M) 1 tab DAILY PO 04/03/20 09:00 04/14/20 07:43 Oxycodone HCl (Roxicodone, Oxyir) 5 mg Q4HP PRN PO PAIN 04/02/20 15:15 Pantoprazole Sodium (Protonix) 40 mg DAILY PO 04/02/20 09:00 04/14/20 07:44 Senna/Docusate Sodium (Senokot S) 2 tab BID PO 04/02/20 21:00 04/14/20 07:44 YOSVANY GORMAN MD Apr 14, 2020 09:56
[2020-04-14 14:00] VITALS: BP 127/58
[2020-04-14 20:00] VITALS: BP 137/69
[2020-04-14] MEDS: LATANOPROST 0.005% OPHTH SOLN 2.5 ML OU SCH (21:30)
[2020-04-15 05:53] VITALS: BP 138/66
[2020-04-15] MEDS: HEPARIN SOD (PORCINE) 5000UNITS/ML 1ML VIAL/SYRINGE SC SCH (06:33)
[2020-04-15] MEDS: HumaLOG INSULIN (NovoLOG) PER UNIT SC SCH (07:00)
[2020-04-15] MEDS: LEVEMIR (INSULIN DETEMIR) 1 UNITS/0.01ML SC SCH (07:01)
[2020-04-15] MEDS: SENOKOT S TAB PO SCH (07:03)
[2020-04-15] MEDS: CLOPIDOGREL 75 MG TAB PO SCH (07:25)
[2020-04-15] MEDS: MULTIVITAMINS/MINERALS THERAP 1 TAB PO SCH (07:25)
[2020-04-15] MEDS: FERROUS GLUCONATE 324 MG TAB PO SCH (07:25)
[2020-04-15] MEDS: ASPIRIN 81 MG ENTERIC TAB PO SCH (07:25)
[2020-04-15] MEDS: LACTOBACILLUS ACIDOPHILUS CAP (BACID) PO SCH (07:25)
[2020-04-15] MEDS: ACETAMINOPHEN 500 MG TAB PO SCH (07:25)
[2020-04-15] MEDS: BRIMONIDINE 0.1% OPHTH SOLN 5 ML OU SCH (07:26)
[2020-04-15] MEDS: REMEDY PHYTOPLEX Z-GUARD PASTE 113GM TUBE (FROM STOREROOM PRODUCT) TOP SCH (07:27)
[2020-04-15 07:28] LABS: BASO # 0.1 10^3/uL (0.0-0.2); BASO % 1.2 % (0.0-1.0); EOS # 0.8 10^3/uL (0.0-0.5); EOS % 10.2 % (0.0-3.0); HEMATOCRIT 31.1 % (42.0-52.0); HEMOGLOBIN 9.7 g/dl (13.5-17.5); LYMPH # 1.9 10^3/uL (1.5-5.0); LYMPH % 26.4 % (24.0-44.0); MEAN CORPUSCULAR HGB CONC 31.2 g/dl (32.0-36.5); MEAN CORPUSCULAR VOLUME 93.1 fl (80.0-96.0); MONO # 0.7 10^3/uL (0.0-0.8); MONO % 9.3 % (0.0-5.0); NEUTROPHILS # 3.8 10^3/uL (1.5-8.5); NEUTROPHILS % 52.4 % (36.0-66.0); PLATELET COUNT, AUTOMATED 329 10^3/uL (150-450); RED BLOOD COUNT 3.34 10^6/uL (4.30-6.10); WHITE BLOOD COUNT 7.3 10^3/uL (4.0-10.0)
[2020-04-15] MEDS: PANTOPRAZOLE 40MG TAB (PROTONIX) PO SCH (07:29)
[2020-04-15] MEDS: KETOCONAZOLE 2% CREAM TOP SCH (07:30)
[2020-04-15 07:49] LABS: BLOOD UREA NITROGEN 18 MG/DL (7-18); CALCIUM LEVEL 8.6 MG/DL (8.8-10.2); CARBON DIOXIDE LEVEL 30 MEQ/L (21-32); CHLORIDE LEVEL 106 MEQ/L (98-107); CREATININE FOR GFR 1.13 MG/DL (0.70-1.30); GLOMERULAR FILTRATION RATE > 60.0 (>42); GLUCOSE, FASTING 69 MG/DL (70-100); POTASSIUM SERUM 4.2 MEQ/L (3.5-5.1); SODIUM LEVEL 140 MEQ/L (136-145)
[2020-04-15] MEDS ORDERED: RISATAB3 PO (09:40)
[2020-04-15] MEDS ORDERED: BRIM1OPD OU (09:40)
[2020-04-15] MEDS ORDERED: PANT40TA29 PO (09:40)
[2020-04-15] MEDS ORDERED: OXYC-517 PO (09:40)
[2020-04-15] MEDS ORDERED: INSUHUMDS SC ×2 (09:40)
[2020-04-15] MEDS ORDERED: ASPI81TAEC PO (09:40)
[2020-04-15] MEDS ORDERED: SENN-52 PO (09:40)
[2020-04-15] MEDS ORDERED: CLOP75TA2 PO (09:40)
[2020-04-15] MEDS ORDERED: Latanoprost 0.005% Op Soln OU (09:40)
[2020-04-15] MEDS ORDERED: FERR32TA PO (09:40)
[2020-04-15] MEDS ORDERED: INSUDET SC ×2 (09:40)
[2020-04-15] MEDS ORDERED: VITMTA PO (09:40)
[2020-04-15] MEDS ORDERED: ACET-683 PO (09:40)
--- NOTE | 2020-04-15 11:45 | PMRDS ---
NAME: BRITNI FLEMING [facility] WT ID#: [id number] : 1945 JOB: [id number] JUAN C: 04/15/2020 ACCT: [id number] DOCTOR: YOSVANY GORMAN MD PMR DISCHARGE SUMMARY DATE OF ADMISSION: 04/02/2020 DATE OF DISCHARGE: 04/15/2020 CHIEF COMPLAINT/DISCHARGE DIAGNOSIS: Left BKA. HISTORY OF PRESENT ILLNESS: This is a 74-year-old male with a past medical history of PAD status post right BKA, diabetes, peripheral polyneuropathy, hypertension, hyperlipidemia, iron deficiency anemia, who dropped a box onto his left foot and presented to [facility] ED on 03/18/2020 with worsening pain and was found to be on DKA with a foot infection. Foot x-ray showed "significant subcutaneous emphysema consistent with underlying infectious process and ulceration. Osteomyelitis involving the 5th toe cannot be excluded." He was started on antibiotics, Vascular was consulted and recommended an arterial study which showed "marked atheromatous changes with evidence of right distal superficial femoral artery occlusion and areas of stenosis to the left profunda, superficial femoral artery, popliteal artery and anterior tibial artery." He then underwent a left BKA on 03/26/2020 with postop anemia for which he received blood transfusions with PRBCs. He was continued on IV antibiotics, followed by Surgery for concern of residual limb cellulitis and had episodes of hypoglycemia for which his insulin dosing was adjusted. He was evaluated by therapy who noted deficits in mobility and ADLs below his prior level of function making him a good candidate for ARU level of care. PAST MEDICAL HISTORY: As per HPI. HOSPITAL COURSE: The patient was admitted and enrolled in a comprehensive PT/OT program. He received 24 hour nursing supervision and weekly team meetings were held to discuss his progress. The patient was transitioned off IV antibiotics and the CRP trended down, with overall good healing of his left residual limb incision. He was maintained on oral iron for iron deficiency anemia. His fecal occult blood test was negative and he also remained on Heparin for DVT prophylaxis. Patient's insulin dosing was adjusted due to elevated fasting glucose levels and he was maintained on aspirin and Plavix. He made slow steady but substantial gains in therapy and was deemed functionally stable for further short-term rehab. DISCHARGE MEDICATIONS: As per instructions. FUNCTIONAL HISTORY: The patient was standby assist for [facility] independent for functional transfers and bed mobility. Thank you for this referral.
== END 2020-04-15 10:25 | DRG 561 ==
LOC: M PM&R 04-02 14:15
PROVIDERS: ADMIT Physical Medicine & Rehabilitation; ATTEND Physical Medicine & Rehabilitation
DX: Z47.81 Encounter for orthopedic aftercare following surgical amputation (principal); Z89.512 Acquired absence of left leg below knee; E11.51 Type 2 diabetes mellitus with diabetic peripheral angiopathy without gangrene; Z89.511 Acquired absence of right leg below knee; E11.42 Type 2 diabetes mellitus with diabetic polyneuropathy; D50.9 Iron deficiency anemia, unspecified; I10 Essential (primary) hypertension; Z88.0 Allergy status to penicillin; Z79.82 Long term (current) use of aspirin; Z79.02 Long term (current) use of antithrombotics/antiplatelets; Z79.4 Long term (current) use of insulin; Z79.899 Other long term (current) drug therapy; E78.5 Hyperlipidemia, unspecified

== ENCOUNTER 2020-05-17 23:06 | Inpatient (IN) | payer OTHER ==
[~2020-05-17] VITALS: Ht 170.2 cm; Wt 77.0 kg
[~2020-05-17 23:06] MED LIST changes: +ACET-683 PO; +ASPI81TAEC PO; +CLOP75TA2 PO; +FERR32TA PO; +KETO2CR TOP; +Latanoprost 0.005% Op Soln OU; +OXYC-517 PO; +PANT40TA29 PO; +RISATAB3 PO; +SENN-52 PO; +VANC1INJ37 IV; +VANC750P8 IV; +VITMTA PO; +[UNRECOGNIZED DRUG - CODE] IV
--- OUTSIDE RECORDS SUMMARY | 2020-05-17 23:15 | CCD ---
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 Name Role Phone Hubert Dyer MD Unavailable Unavailable Hubert Dyer MD Unavailable Unavailable Hubert Dyer MD Unavailable Unavailable Hubert Dyer MD Unavailable Unavailable Hubert Dyer MD Unavailable Unavailable Hubert Dyer MD Unavailable Unavailable Hubert Dyer MD Unavailable Unavailable Hubert Dyer MD Unavailable Unavailable Hubert Dyer MD Unavailable Unavailable Hubert Dyer MD Unavailable Unavailable Hubert Dyer MD Unavailable Unavailable Hubert Dyer MD Unavailable Unavailable Hubert Dyer MD Unavailable Unavailable Hubert Dyer MD Unavailable Unavailable Hubert Dyer MD Unavailable Unavailable Hubert Dyer MD Unavailable Unavailable Dombek-Lang, V Jacqueline MD Unavailable Unavailable Dombek-Lang, V Jacqueline MD Unavailable Unavailable Dombek-Lang, V Jacqueline MD Unavailable Unavailable Dombek-Lang, V Jacqueline MD Unavailable Unavailable Dombek-Lang, V Jacqueline MD Unavailable Unavailable Dombek-Lang, V Jacqueline MD Unavailable Unavailable Dombek-Lang, V Jacqueline MD Unavailable Unavailable Dombek-Lang, V Jacqueline MD Unavailable Unavailable Dombek-Lang, V Jacqueline MD Unavailable Unavailable Dombek-Lang, V Jacqueline MD Unavailable Unavailable Dombek-Lang, V Jacqueline MD Unavailable Unavailable Dombek-Lang, V Jacqueline MD Unavailable Unavailable Dombek-Lang, V Jacqueline MD Unavailable Unavailable Dombek-Lang, V Jacqueline MD Unavailable Unavailable Dombek-Lang, V Jacqueline MD Unavailable Unavailable Dombek-Lang, V Jacqueline MD Unavailable Unavailable Dombek-Lang, V Jacqueline MD Unavailable Unavailable Dombek-Lang, V Jacqueline MD Unavailable Unavailable Dombek-Lang, V Jacqueline MD Unavailable Unavailable Dombek-Lang, V Jacqueline MD Unavailable Unavailable Dombek-Lang, V Jacqueline MD Unavailable Unavailable Enio, Cathleen PA Unavailable Unavailable Enio, Cathleen PA Unavailable Unavailable Enio, Cathleen PA Unavailable Unavailable Enio, Cathleen PA Unavailable Unavailable Enio, Cathleen PA Unavailable Unavailable Enio, Cathleen PA Unavailable Unavailable Enio, Cathleen PA Unavailable Unavailable Enio, Cathleen PA Unavailable Unavailable Enio, Cathleen PA Unavailable Unavailable Enio, Cathleen PA Unavailable Unavailable Enio, Cathleen PA Unavailable Unavailable Enio, Cathleen PA Unavailable Unavailable Enio, Cathleen PA Unavailable Unavailable Enio, Cathleen PA Unavailable Unavailable Enio, Cathleen PA Unavailable Unavailable Enio, Cathleen PA Unavailable Unavailable Enio, Cathleen PA Unavailable Unavailable Enio, Cathleen PA Unavailable Unavailable Enio, Cathleen PA Unavailable Unavailable Enio, Cathleen PA Unavailable Unavailable Enio, Cathleen PA Unavailable Unavailable Enio, Cathleen PA Unavailable Unavailable Enio, Cathleen PA Unavailable Unavailable Enio, Cathleen PA Unavailable Unavailable Enio, Cathleen PA Unavailable Unavailable Enio, Cathleen PA Unavailable Unavailable Enio, Cathleen PA Unavailable Unavailable Enio, Cathleen PA Unavailable Unavailable Enio, Cathleen PA Unavailable Unavailable Enio, Cathleen PA Unavailable Unavailable Enio, Cathleen PA Unavailable Unavailable Enio, Cathleen PA Unavailable Unavailable Enio, Cathleen PA Unavailable Unavailable Enio, Cathleen PA Unavailable Unavailable Enio, Cathleen PA Unavailable Unavailable Enio, Cathleen PA Unavailable Unavailable Enio, Cathleen PA Unavailable Unavailable Enio, Cathleen PA Unavailable Unavailable Enio, Cathleen PA Unavailable Unavailable Enio, Cathleen PA Unavailable Unavailable Enio, Cathleen PA Unavailable Unavailable Enio, Cathleen PA Unavailable Unavailable Enio, Cathleen PA Unavailable Unavailable Enio, Cathleen PA Unavailable Unavailable Enio, Cathleen PA Unavailable Unavailable Enio, Cathleen PA Unavailable Unavailable Enio, Cathleen PA Unavailable Unavailable Enio, Cathleen PA Unavailable Unavailable Enio, Cathleen PA Unavailable Unavailable Eino, Cathleen PA Unavailable Unavailable Enio, Cathleen PA Unavailable Unavailable Enio, Cathleen PA Unavailable Unavailable Enio, Cathleen PA Unavailable Unavailable Enio, Cathleen PA Unavailable Unavailable Enio, Cathleen PA Unavailable Unavailable Enio, Cathleen PA Unavailable Unavailable Enio, Cathleen PA Unavailable Unavailable Enio, Cathleen PA Unavailable Unavailable MED[facility]_23, [id number] Unavailable [phone] [facility], [id number] Unavailable [phone] [facility], [id number] Unavailable [phone] [facility], [id number] Unavailable [phone] [facility], [id number] Unavailable [phone] [facility], [id number] Unavailable [phone] [facility], [id number] Unavailable [phone] [facility], [id number] Unavailable [phone] [facility], [id number] Unavailable [phone] [facility], [id number] Unavailable [phone] [facility], [id number] Unavailable [phone] [facility] Un[facility] Unavailable Hubert Dyer MD Unavailable Unavailable Hubert Dyer MD Unavailable Unavailable Dombek-Lang, V Jacqueline MD Unavailable Unavailable Dombek-Lang, V Jacqueline MD Unavailable Unavailable Dombek-Lang, V Jacqueline MD Unavailable Unavailable Dombek-Lang, V Jacqueline MD Unavailable Unavailable Dombek-Lang, V Jacqueline MD Unavailable Unavailable Dombek-Lang, V Jacqueline MD Unavailable Unavailable Dombek-Lang, V Jacqueline MD Unavailable Unavailable Dombek-Lang, V Jacqueline MD Unavailable Unavailable Dombek-Lang, V Jacqueline MD Unavailable Unavailable Dombek-Lang, V Jacqueline MD Unavailable Unavailable Dombek-Lang, V Jacqueline MD Unavailable Unavailable Dombek-Lang, V Jacqueline MD Unavailable Unavailable Dombek-Lang, V Jacqueline MD Unavailable Unavailable Dombek-Lang, V Jacqueline MD Unavailable Unavailable Dombek-Lang, V Jacqueline MD Unavailable Unavailable Dombek-Lang, V Jacqueline MD Unavailable Unavailable Dombek-Lang, V Jacqueline MD Unavailable Unavailable Dombek-Lang, V Jacqueline MD Unavailable Unavailable Dombek-Lang, V Jacqueline MD Unavailable Unavailable Dombek-Lang, V Jacqueline MD Unavailable Unavailable Dombek-Lang, V Jacqueline MD Unavailable Unavailable Dombek-Lang, V Jacqueline MD Unavailable Unavailable Dombek-Lang, V Jacqueline MD Unavailable Unavailable Dombek-Lang, V Jacqueline MD Unavailable Unavailable Dombek-Lang, V Jacqueline MD Unavailable Unavailable Dombek-Lang, V Jacqueline MD Unavailable Unavailable Dombek-Lang, V Jacqueline MD Unavailable Unavailable Dombek-Lang, V Jacqueline MD Unavailable Unavailable Dombek-Lang, V Jacqueline MD Unavailable Unavailable Dombek-Lang, V Jacqueline MD Unavailable Unavailable Dombek-Lang, V Jacqueline MD Unavailable Unavailable Dombek-Lang, V Jacqueline MD Unavailable Unavailable Dombek-Lang, V Jacqueline MD Unavailable Unavailable Dombek-Lang, V Jacqueline MD Unavailable Unavailable Dombek-Lang, V Jacqueline MD Unavailable Unavailable DiVencenzo, Jordan DO Unavailable Unavailable DiVencenzo, Jordan DO Unavailable Unavailable DiVencenzo, Jordan DO Unavailable Unavailable DiVencenzo, Jordan DO Unavailable Unavailable DiVencenzo, Jordan DO Unavailable Unavailable IRIS, JESSICA Unavailable Unavailable Re-disclosure Warning The records that you are about to access may contain information from federally-assisted alcohol or drug abuse programs. If such information is present, then the following federally mandated warning applies: This information has been disclosed to you from records protected by federal confidentiality rules (42 CFR part 2). The federal rules prohibit you from making any further disclosure of this information unless further disclosure is expressly permitted by the written consent of the person to whom it pertains or as otherwise permitted by 42 CFR part 2. A general authorization for the release of medical or other information is NOT sufficient for this purpose. The Federal rules restrict any use of the information to criminally investigate or prosecute any alcohol or drug abuse patient.The records that you are about to access may contain highly sensitive health information, the redisclosure of which is protected by Article 27-F of the [facility] Public Health law. If you continue you may have access to information: Regarding HIV / AIDS; Provided by facilities licensed or operated by the [facility] Office of Mental Health; or Provided by the [facility] Office for People With Developmental Disabilities. If such information is present, then the following [facility] mandated warning applies: This information has been disclosed to you from confidential records which are protected by state law. State law prohibits you from making any further disclosure of this information without the specific written consent of the person to whom it pertains, or as otherwise permitted by law. Any unauthorized further disclosure in violation of state law may result in a fine or senior care sentence or both. A general authorization for the release of medical or other information is NOT sufficient authorization for further disc losure. Allergies and Adverse Reactions Type Description Substance Reaction Status Data Source(s ) Drug allergy Penicillins Penicillins Hives [facility] Drug allergy Farxiga dapagliflozin lightheaded, nauseated Active eCW1 ([facility]) Drug allergy Hydrochlorothiazide Hydrochlorothiazide diarrhea Activ e eCW1 ([facility]) Drug allergy Guaifenesin Drug allergy blurry vision Active eCW1 ([facility]) statins statins statins myalgias Active eCW1 ([facility]) Penicillin V-potassium Penicillin V-potassium Penicillin V-potassiu m rash Active eCW1 ([facility]) statins statins statins myalgias Active eCW1 ([facility]) Penicillin V-potassium Penicillin V-potassium Penicillin V-potassiu m rash Active eCW1 ([facility]) statins statins statins myalgias Active eCW1 ([facility]) Penicillin V-potassium Penicillin V-potassium Penicillin V-potassiu m rash Active eCW1 ([facility]) statins statins statins myalgias Active eCW1 ([facility]) Penicillin V-potassium Penicillin V-potassium Penicillin V-potassiu m rash Active eCW1 ([facility]) statins statins statins myalgias Active eCW1 ([facility]) Penicillin V-potassium Penicillin V-potassium Penicillin V-potassiu m rash Active eCW1 ([facility]) Encounters Encounter Providers Location Date Indications Data Source(s ) Unknown [address] [facility] [address] 05/13/2020 12:00:00 AM EST eCW1 ([facility]) Outpatient Attender: Jacqueline Dyer MDConsultant: [facility] [id number] 05/08/2020 08:10:00 PM [facility] Inpatient Attender: [phone] MEDENT_ 23Attender: Jordan Brice DOAdmitter: Jordan Brice DO EMERGENCY ROOM-2N 05/02/2020 02:40:00 PM EST - 05/13/2020 10:20:00 AM [facility] Patient discharged. Inpatient Attender: Jacqueline Dyer MDAdmitter: Jacqueline Dyer MD EMERGENCY ROOM-2N 04/29/2020 03:00:00 PM EST - 05/02/2020 02:39:00 PM [facility] Patient discharged. Outpatient Attender: Jacqueline Dyer MDConsultant: [facility] [id number] 04/29/2020 02:50:00 AM [facility] Inpatient Attender: Jacqueline Dyer MDAdmitter: Jacqueline Dyer MD EMERGENCY ROOM-2N 04/15/2020 11:09:00 AM EST - 04/29/2020 02:59:00 PM [facility] Patient discharged. Unknown [address] [facility] [address] 03/12/2020 12:00:00 AM EST eCW1 ([facility]) Outpatient [address] [facility] [address] 03/12/2020 12:00:00 AM EST eCW1 ([facility]) Unknown [address] [facility] [address] 03/03/2020 12:00:00 AM EST eCW1 ([facility]) Unknown [address] [facility] [address] 02/27/2020 12:00:00 AM EST eCW1 ([facility]) Unknown [address] [facility] [address] 02/24/2020 12:00:00 AM EST eCW1 ([facility]) Unknown [address] [facility] [address] 02/12/2020 12:00:00 AM EST eCW1 ([facility]) Outpatient [address] [facility] [address] 02/12/2020 12:00:00 AM EST eCW1 ([facility]) Unknown [address] [facility] [address] 01/23/2020 12:00:00 AM EDT eCW1 ([facility]) Outpatient [address] [facility] [address] 01/06/2020 12:00:00 AM EDT eCW1 ([facility]) Unknown [address] [facility] [address] 01/06/2020 12:00:00 AM EDT eCW1 ([facility]) Unknown [address] [facility] [address] 12/31/2019 12:00:00 AM EDT eCW1 ([facility]) [facility] [place] [address] [facility] [address] 10/17/2019 12:00:00 AM EDT eCW1 ([facility]) Outpatient [address] [facility] [address] 09/12/2019 12:00:00 AM EDT eCW1 ([facility]) Unknown [address] [facility] [address] 09/10/2019 12:00:00 AM EDT eCW1 ([facility]) Unknown [address] [facility] [address] 09/05/2019 12:00:00 AM EDT eCW1 ([facility]) [facility] [address] [place] [address] [place] [address] 08/15/2019 12:00:00 AM EDT eCW1 ([facility]) [facility] [address] [place] [address] Y [address] 08/14/2019 12:00:00 AM EDT eCW1 ([facility]) [facility] [address] [facility] [address] 08/07/2019 12:00:00 AM EDT eCW1 ([facility]) [address] [place] [address] 07/31/2019 12:00:00 AM EDT eCW1 ([facility]) Outpatient Attender: Cathleen PHAM 07/26/2019 10:14:0 0 AM EDT Lab [facility] [place] [id number] [facility] [address] 07/26/2019 12:00:00 AM EDT eCW1 ([facility]) [address] [place] [address] 07/18/2019 12:00:00 AM EDT eCW1 ([facility]) [facility] [address] [place] [address] [place] [address] 07/18/2019 12:00:00 AM EDT eCW1 ([facility]) [address] [place] [address] 07/17/2019 12:00:00 AM EDT eCW1 ([facility]) [facility] [address] [facility] [address] 07/12/2019 12:00:00 AM EDT eCW1 ([facility]) [facility] [address] [facility] [address] 07/11/2019 12:00:00 AM EDT eCW1 ([facility]) [facility] [address] [facility] [address] 07/09/2019 12:00:00 AM EDT [facility]CW1 [facility] [address] [facility] [address] 07/08/2019 12:00:00 AM EDT eCW1 ([facility]) [facility] [address] [facility] [address] 07/03/2019 12:00:00 AM EDT eCW1 ([facility]) [facility] [address] [facility] [address] 07/03/2019 12:00:00 AM EDT eCW1 ([facility]) [facility] [address] [facility] [address] 06/25/2019 12:00:00 AM EDT eCW1 ([facility]) [facility] [address] [facility] [address] 06/06/2019 12:00:00 AM EDT eCW1 ([facility]) [facility] [address] [facility] [address] 05/31/2019 12:00:00 AM EST eCW1 ([facility]) [facility] [place] [address] [facility] [address] 05/30/2019 12:00:00 AM EST eCW1 ([facility]) [facility] [address] [facility] [address] 05/23/2019 12:00:00 AM EST eCW1 ([facility]) [facility] [address] [facility] [address] 05/17/2019 12:00:00 AM EST eCW1 ([facility]) [facility] [address] [facility] [address] 05/13/2019 12:00:00 AM EST eCW1 ([facility]) [facility] [place] [address] [facility] [address] 05/10/2019 12:00:00 AM EST eCW1 ([facility] [address] [facility] [address] 05/08/2019 12:00:00 AM EST eCW1 ([facility]) [facility] [place] [address] [facility] [address] 05/02/2019 12:00:00 AM EST eCW1 ([facility]) [facility] [place] [address] [facility] [address] 04/23/2019 12:00:00 AM EST eCW1 ([facility]) [facility] [place] [address] [facility] [address] 04/23/2019 12:00:00 AM EST eCW1 ([facility]) [facility] [place] [address] [facility] [address] 04/22/2019 12:00:00 AM EST eCW1 ([facility]) Outpatient Attender: Cathleen PHAM 04/16/2019 10:21:0 0 AM EST lab [facility] lab [facility] [place] [address] [place] [address], [place] [address] 04/16/2019 12:00:00 AM EST eCW1 ([facility]) [facility] [place] [address] [place] [address], [place] [address] 04/11/2019 12:00:00 AM EST eCW1 ([facility]) [facility] [address] [facility] [address] 04/09/2019 12:00:00 AM EST eCW1 ([facility]) Outpatient Attender: JESSICA SIMMONS 04/01/2019 12:00:00 A [facility] [place] [address] [facility] [address] 03/28/2019 12:00:00 AM EST eCW1 ([facility]) [facility] [address] [facility] [address] 03/25/2019 12:00:00 AM EST eCW1 ([facility]) Outpatient Attender: JESSICA SIMMONS 03/22/2019 12:00:00 A [facility] [address] [facility] [address] 03/19/2019 12:00:00 AM EST eCW1 ([facility]) Outpatient 01/25/2018 12:00:00 AM EDT - 01/25/2018 11:59:00 PM EDT [facility] [employer] [facility] [employer] [facility] Patient discharged. Medications Medication Brand Name Start Date Product Form Dose Route Admi nistrative Instructions Pharmacy Instructions Status Indications Reaction Description Data Source(s) Glucometer UNK 05/13/2019 12:00:00 AM EST active Glucometer eCW1 ([facility]) Glucometer UNK 05/13/2019 12:00:00 AM EST active as directed eCW1 ([facility]) Glucometer UNK 05/13/2019 12:00:00 AM EST active Glucometer eCW1 ([facility]) Glucometer UNK 05/13/2019 12:00:00 AM EST active Glucometer eCW1 ([facility]) Glucometer UNK 05/13/2019 12:00:00 AM EST active as directed eCW1 ([facility]) Glucometer UNK 05/13/2019 12:00:00 AM EST active as directed eCW1 ([facility]) Glucometer UNK 05/13/2019 12:00:00 AM EST active Glucometer eCW1 ([facility]) Glucometer UNK 05/13/2019 12:00:00 AM EST active Glucometer eCW1 ([facility]) Glucometer UNK 05/13/2019 12:00:00 AM EST active Glucometer eCW1 ([facility]) Glucometer UNK 05/13/2019 12:00:00 AM EST active Glucometer eCW1 ([facility]) Glucometer UNK 05/13/2019 12:00:00 AM EST active as directed eCW1 ([facility]) Glucometer UNK 05/13/2019 12:00:00 AM EST active as directed eCW1 ([facility]) Glucometer UNK 05/13/2019 12:00:00 AM EST active Glucometer eCW1 ([facility]) Glucometer UNK 05/13/2019 12:00:00 AM EST active as directed eCW1 ([facility]) Glucometer UNK 05/13/2019 12:00:00 AM EST active as directed eCW1 ([facility]) Glucometer UNK 05/13/2019 12:00:00 AM EST active Glucometer eCW1 ([facility]) Glucometer UNK 05/13/2019 12:00:00 AM EST active Glucometer eCW1 ([facility]) Glucometer UNK 05/13/2019 12:00:00 AM EST active Glucometer eCW1 ([facility]) Glucometer UNK 05/13/2019 12:00:00 AM EST active Glucometer eCW1 ([facility]) Glucometer UNK 05/13/2019 12:00:00 AM EST active Glucometer eCW1 ([facility]) Glucometer UNK 05/13/2019 12:00:00 AM EST active Glucometer eCW1 ([facility]) Glucometer UNK 05/13/2019 12:00:00 AM EST active Glucometer eCW1 ([facility]) Physical Therapy evaluate and treat UNK 05/10/2019 12:00:00 AM EST active mechanical eval & tx eCW1 (Counts include 234 beds at the [facility]) Physical Therapy evaluate and treat UNK 05/10/2019 12:00:00 AM EST suspended Physical Therapy evaluate and tr eat eCW1 ([facility]) Physical Therapy evaluate and treat UNK 05/10/2019 12:00:00 AM EST suspended Physical Therapy evaluate and tr eat eCW1 ([facility]) Physical Therapy evaluate and treat UNK 05/10/2019 12:00:00 AM EST active Physical Therapy evaluate and tr eat eCW1 ([facility]) Physical Therapy evaluate and treat UNK 05/10/2019 12:00:00 AM EST suspended Physical Therapy evaluate and tr eat eCW1 ([facility]) Physical Therapy evaluate and treat UNK 05/10/2019 12:00:00 AM EST active Physical Therapy evaluate and tr eat eCW1 ([facility]) Physical Therapy evaluate and treat UNK 05/10/2019 12:00:00 AM EST suspended Physical Therapy evaluate and tr eat eCW1 ([facility]) Physical Therapy evaluate and treat UNK 05/10/2019 12:00:00 AM EST active Physical Therapy evaluate and tr eat eCW1 ([facility]) Physical Therapy evaluate and treat UNK 05/10/2019 12:00:00 AM EST active mechanical eval & tx eCW1 (Counts include 234 beds at the [facility]) Physical Therapy evaluate and treat UNK 05/10/2019 12:00:00 AM EST active mechanical eval & tx eCW1 (Counts include 234 beds at the [facility]) Physical Therapy evaluate and treat UNK 05/10/2019 12:00:00 AM EST suspended Physical Therapy evaluate and tr eat eCW1 ([facility]) Physical Therapy evaluate and treat UNK 05/10/2019 12:00:00 AM EST active mechanical eval & tx eCW1 (Counts include 234 beds at the [facility]) Physical Therapy evaluate and treat UNK 05/10/2019 12:00:00 AM EST suspended Physical Therapy evaluate and tr eat eCW1 ([facility]) Physical Therapy evaluate and treat UNK 05/10/2019 12:00:00 AM EST active Physical Therapy evaluate and tr eat eCW1 ([facility]) Physical Therapy evaluate and treat UNK 05/10/2019 12:00:00 AM EST active mechanical eval & tx eCW1 (Counts include 234 beds at the [facility]) Physical Therapy evaluate and treat UNK 05/10/2019 12:00:00 AM EST active mechanical eval & tx eCW1 (Counts include 234 beds at the [facility]) Physical Therapy evaluate and treat UNK 05/10/2019 12:00:00 AM EST suspended Physical Therapy evaluate and tr eat eCW1 ([facility]) Physical Therapy evaluate and treat UNK 05/10/2019 12:00:00 AM EST active mechanical eval & tx eCW1 (Counts include 234 beds at the [facility]) Physical Therapy evaluate and treat UNK 05/10/2019 12:00:00 AM EST suspended Physical Therapy evaluate and tr eat eCW1 ([facility]) Physical Therapy evaluate and treat UNK 05/10/2019 12:00:00 AM EST suspended Physical Therapy evaluate and tr eat eCW1 ([facility]) Physical Therapy evaluate and treat UNK 05/10/2019 12:00:00 AM EST suspended Physical Therapy evaluate and tr eat eCW1 ([facility]) Physical Therapy evaluate and treat UNK 05/10/2019 12:00:00 AM EST active mechanical eval & tx eCW1 (Counts include 234 beds at the [facility]) Physical Therapy evaluate and treat UNK 05/10/2019 12:00:00 AM EST suspended Physical Therapy evaluate and tr eat eCW1 ([facility]) 3 ML Insulin, Aspart, Human 100 UNT/ML P en Injector [NovoLog] NovoLog Flexpen 100 UNIT/ML NovoLog Flexpen 100 UNIT/ML 05/03/2019 12:00:00 AM EST active NovoLog Flexpen 100 UNIT/ML eCW1 ([facility]) 3 ML Insulin, Aspart, Human 100 UNT/ML P en Injector [NovoLog] NovoLog Flexpen 100 UNIT/ML NovoLog Flexpen 100 UNIT/ML 05/03/2019 12:00:00 AM EST active 6 units eCW1 ([facility]) 3 ML Insulin, Aspart, Human 100 UNT/ML P en Injector [NovoLog] NovoLog Flexpen 100 UNIT/ML NovoLog Flexpen 100 UNIT/ML 05/03/2019 12:00:00 AM EST active 6 units eCW1 ([facility]) 3 ML Insulin, Aspart, Human 100 UNT/ML P en Injector [NovoLog] NovoLog Flexpen 100 UNIT/ML NovoLog Flexpen 100 UNIT/ML 05/03/2019 12:00:00 AM EST active 6 units eCW1 ([facility]) 3 ML Insulin, Aspart, Human 100 UNT/ML P en Injector [NovoLog] NovoLog Flexpen 100 UNIT/ML NovoLog Flexpen 100 UNIT/ML 05/03/2019 12:00:00 AM EST active NovoLog Flexpen 100 UNIT/ML eCW1 ([facility]) 3 ML Insulin, Aspart, Human 100 UNT/ML P en Injector [NovoLog] NovoLog Flexpen 100 UNIT/ML NovoLog Flexpen 100 UNIT/ML 05/03/2019 12:00:00 AM EST active NovoLog Flexpen 100 UNIT/ML eCW1 ([facility]) 3 ML Insulin, Aspart, Human 100 UNT/ML P en Injector [NovoLog] NovoLog Flexpen 100 UNIT/ML NovoLog Flexpen 100 UNIT/ML 05/03/2019 12:00:00 AM EST active NovoLog Flexpen 100 UNIT/ML eCW1 ([facility]) 3 ML Insulin, Aspart, Human 100 UNT/ML P en Injector [NovoLog] NovoLog Flexpen 100 UNIT/ML NovoLog Flexpen 100 UNIT/ML 05/03/2019 12:00:00 AM EST active NovoLog Flexpen 100 UNIT/ML eCW1 ([facility]) 3 ML Insulin, Aspart, Human 100 UNT/ML P en Injector [NovoLog] NovoLog Flexpen 100 UNIT/ML NovoLog Flexpen 100 UNIT/ML 05/03/2019 12:00:00 AM EST active 6 units eCW1 ([facility]) 3 ML Insulin, Aspart, Human 100 UNT/ML P en Injector [NovoLog] NovoLog Flexpen 100 UNIT/ML NovoLog Flexpen 100 UNIT/ML 05/03/2019 12:00:00 AM EST active 6 units eCW1 ([facility]) 3 ML Insulin, Aspart, Human 100 UNT/ML P en Injector [NovoLog] NovoLog Flexpen 100 UNIT/ML NovoLog Flexpen 100 UNIT/ML 05/03/2019 12:00:00 AM EST active NovoLog Flexpen 100 UNIT/ML eCW1 ([facility]) 3 ML Insulin, Aspart, Human 100 UNT/ML P en Injector [NovoLog] NovoLog Flexpen 100 UNIT/ML NovoLog Flexpen 100 UNIT/ML 05/03/2019 12:00:00 AM EST active NovoLog Flexpen 100 UNIT/ML eCW1 ([facility]) 3 ML Insulin, Aspart, Human 100 UNT/ML P en Injector [NovoLog] NovoLog Flexpen 100 UNIT/ML NovoLog Flexpen 100 UNIT/ML 05/03/2019 12:00:00 AM EST active NovoLog Flexpen 100 UNIT/ML eCW1 ([facility]) 3 ML Insulin, Aspart, Human 100 UNT/ML P en Injector [NovoLog] NovoLog Flexpen 100 UNIT/ML NovoLog Flexpen 100 UNIT/ML 05/03/2019 12:00:00 AM EST active NovoLog Flexpen 100 UNIT/ML eCW1 ([facility]) 3 ML Insulin, Aspart, Human 100 UNT/ML P en Injector [NovoLog] NovoLog Flexpen 100 UNIT/ML NovoLog Flexpen 100 UNIT/ML 05/03/2019 12:00:00 AM EST active NovoLog Flexpen 100 UNIT/ML eCW1 ([facility]) 3 ML Insulin, Aspart, Human 100 UNT/ML P en Injector [NovoLog] NovoLog Flexpen 100 UNIT/ML NovoLog Flexpen 100 UNIT/ML 05/03/2019 12:00:00 AM EST active NovoLog Flexpen 100 UNIT/ML eCW1 ([facility]) 3 ML Insulin, Aspart, Human 100 UNT/ML P en Injector [NovoLog] NovoLog Flexpen 100 UNIT/ML NovoLog Flexpen 100 UNIT/ML 05/03/2019 12:00:00 AM EST active NovoLog Flexpen 100 UNIT/ML eCW1 ([facility]) 3 ML Insulin, Aspart, Human 100 UNT/ML P en Injector [NovoLog] NovoLog Flexpen 100 UNIT/ML NovoLog Flexpen 100 UNIT/ML 05/03/2019 12:00:00 AM EST active 6 units eCW1 ([facility]) 3 ML Insulin, Aspart, Human 100 UNT/ML P en Injector [NovoLog] NovoLog Flexpen 100 UNIT/ML NovoLog Flexpen 100 UNIT/ML 05/03/2019 12:00:00 AM EST active NovoLog Flexpen 100 UNIT/ML eCW1 ([facility]) 3 ML Insulin, Aspart, Human 100 UNT/ML P en Injector [NovoLog] NovoLog Flexpen 100 UNIT/ML NovoLog Flexpen 100 UNIT/ML 05/03/2019 12:00:00 AM EST active 6 units eCW1 ([facility]) 3 ML Insulin, Aspart, Human 100 UNT/ML P en Injector [NovoLog] NovoLog Flexpen 100 UNIT/ML NovoLog Flexpen 100 UNIT/ML 05/03/2019 12:00:00 AM EST active NovoLog Flexpen 100 UNIT/ML eCW1 ([facility]) 3 ML Insulin, Aspart, Human 100 UNT/ML P en Injector [NovoLog] NovoLog Flexpen 100 UNIT/ML NovoLog Flexpen 100 UNIT/ML 05/03/2019 12:00:00 AM EST active NovoLog Flexpen 100 UNIT/ML eCW1 ([facility]) 3 ML Insulin, Aspart, Human 100 UNT/ML P en Injector [NovoLog] NovoLog Flexpen 100 UNIT/ML NovoLog Flexpen 100 UNIT/ML 05/03/2019 12:00:00 AM EST active 6 units eCW1 ([facility]) Amlodipine 5 MG Oral Tablet amLODIPine Besylate 5 MG O ral Tablet (NORVASC) amLODIPine Besylate 5 MG Oral Tablet (NORVASC) 02/27/2019 12:00:00 AM EST 5 mg Oral active Take 1 tablet by mouth d [facility] Insurance Providers Payer name Policy type / Coverage type Policy ID Covered alliance party ID Covered alliance party's relationship to brown Policy Brown Plan Information HUMANA GOLD [id number] SP [id number] HUMANA GOLD CLASSIC [id number] S [id number] [place]EDNY [id number] SP [id number] BHARAT MEDICARE [id number] SP [id number] [facility] AZLE [id number] SP [id number] HUMANA GOLD [id number] SP [id number] MEDICAID M [id number] Self [id number] [id number] UNITED MEDICARE DUAL G [id number] Self [id number] SELF PAY MEDICAID [facility] [id number] SP [id number] HUMANA MEDICARE ADV [id number] SP [id number] MEDICAID [id number] SP [id number] BHARAT MEDICARE ADV [id number] SP [id number] SELF PAY [employer] [facility] MCRHMO [id number] SP [id number] MEDICARE [id number] SP [id number] MEDICARE [id number] SP [id number] UNITED [employer]ARE MGD MEDICARE [id number] SP [id number] UNITED HEALTHCARE(MCAID) O [id number] S [id number] MEDICAID M [id number] S [id number] [place]ELF [facility] M[facility] MEDICARE [id number] SP [id number] UNITED HE[employer]CARE(MCAID) O [id number] S [id number] SELF PAY MEDICAID [facility] [id number] SP [id number] ANSI-Health Maintenance Organization (HM O) [id number] ANSI-Medicaid [id number] ANSI-Medicare Part B [id number] ANSI-Not a Secondary Insurance [id number] ic2evob [id number] ANSI-Medicare Part B [id number] ANSI-Not a Secondary Insurance [id number] ANSI-Health Maintenance Organization ( O) [id number] ANSI-Medicaid [id number] ANSI-Not a Secondary Insurance [id number] ANSI-Health Maintenance Organization ( O) [id number] ANSI-Medicare Part B [id number] ANSI-Medicaid [id number] ANSI-Medicare Part B [id number] ANSI-Medicaid [id number] ANSI-Not a Secondary Insurance [id number] ANSI-Health Maintenance Organization ( O) [id number] ANSI-Health Maintenance Organization ( O) [id number] ANSI-Medicare Part B [id number] ANSI-Medicaid [id number] ANSI-Not a Secondary Insurance [id number] [id number] [employer] [id number] SP [id number] [employer] OPTIONS [id number] SP [id number] [facility] COMMUNITY PLAN [id number] SP [id number] [facility] [id number] SP [id number] ANSI-Health Maintenance Organization ( O) [id number] ANSI-Medicaid [id number] ANSI-Medicare Part B [id number] ANSI-Not a Secondary Insurance [id number] [id number]-0715-[id number] ANSI-Medicare Part B [id number] ANSI-Health Maintenance Organization ( O) [id number] ANSI-Not a Secondary Insurance [id number]-[id number]-[id number] [id number]-a145-698t-[id number] ANSI-Medicaid [id number] ANSI-Medicaid [id number] ANSI-Health Maintenance Organization ( O) [id number] [id number]-4cl3-4dmw-[id number] ANSI-Not a Secondary Insurance [id number]-47c6-o267w [id number] dpngr4d2-4977-321d-68l3-[id number] ANSI-Medicare Part B [id number] ANSI-Medicare Part B [id number] ANSI-Health Maintenance Organization ( O) [id number]-hiuo-[id number] [id number]-oqlk-wl21mu51k2n0 ANSI-Not a Secondary Insurance [id number]-[id number]-78y01 [id number]-u505-6j68-055x-[id number] ANSI-Medicaid [id number] ANSI-Health Maintenance Organization ( O) [id number]-37fw61385749 ANSI-Medicare Part B [id number] ANSI-Medicaid [id number] ANSI-Not a Secondary Insurance [id number] [id number] [id number] ANSI-Medicaid [id number] ANSI-Medicare Part B [id number] ANSI-Not a Secondary Insurance [id number] [id number] 400i3g21-25k4-6687-1276-g1246z4qr0b4 ANSI-Health Maintenance Organization ( O) [id number]-[id number]-2hjg-34si-cc9t-w8998m733o2s Medicaid of [place] Other 0 Self 0 [employer] Other 0 Self 0 ANSI-Medicare Part B [id number] ANSI-Health Maintenance Organization ( O) [id number] [id number]-60dp-[id number] ANSI-Medicaid [id number] ANSI-Not a Secondary Insurance [id number]-[id number] [id number]-s489-02bu-d8ch-[id number] ANSI-Not a Secondary Insurance [id number]-hu7h-1949-u18r-uy945 [id number]-oc3f-3030-r24l-[id number] ANSI-Health Maintenance Organization ( O) [id number]-6164-773n-[id number] ANSI-Medicare Part B [id number] ANSI-Medicaid [id number] ANSI-Medicaid [id number] ANSI-Health Maintenance Organization ( O) [id number]-[id number] ANSI-Not a Secondary Insurance [id number]-6600-8273-ju81-lnz1n 374z77e 44m5066t-4918-0537-rx48-bqo1k345c92w ANSI-Health Maintenance Organization ( O) [id number]-[id number]-[id number] k503h8e3-uc07-5011-2vfv-[id number] ANSI-Not a Secondary Insurance [id number]-e213-71iy-15oc-626gv [id number]-p862-55xe-50oc-884oc6373sv7 ANSI-Medicaid [id number] ANSI-Not a Secondary Insurance [id number]-90k3-eok6-31836 [id number] [id number]-br8n-48w2-[id number] ANSI-Health Maintenance Organization ( O) [id number]hx4p8 5w3dz0c1-4yg9-4ac7-5407-37ci934lh0e4 ANSI-Medicaid [id number]-[id number] ANSI-Medicaid [id number] ANSI-Not a Secondary Insurance [id number]-n5sj-19357 [id number] 71k6x3a6-8i97-3d0x-l2eo-81287b1p036u ANSI-Medicaid [id number] ANSI-Not a Secondary Insurance [id number]-n405-0y5w-432k-3vcd0 [id number] 3628zfv5-k653-7m1g-162u-[id number] ANSI-Not a Secondary Insurance 285qx7r8-k6o7-42hl-1060-44dj2 [id number] 349in9s1-g0w3-55yv-[id number] ANSI-Medicaid [id number] ANSI-Not a Secondary Insurance [id number]-m818-97234 hn8n2c0 [id number]-s7ih-5a75-h071-62904je5z2y5 ANSI-Medicaid [id number] ANSI-Medicaid [id number] ANSI-Not a Secondary Insurance [id number]-[id number]-[id number] SELF PAY MEDICAID [facility] [id number] BW [id number] ANSI-Medicaid [id number] ANSI-Not a Secondary Insurance [id number]-f50h8 [id number] 191tl3eb-l825-52k6-4jk5-[id number] ANSI-Not a Secondary Insurance [id number]-1154-h8u7-ce4if [id number]-7476-g9x6-[id number] ANSI-Medicaid [id number] ANSI-Medicaid [id number] ANSI-Health Maintenance Organization ( O) [id number]-556x-[id number]-yw7c-671o-[id number] ANSI-Health Maintenance Organization ( O) [id number]-752m-[id number]-694r-[id number] ANSI-Medicaid [id number] ANSI-Health Maintenance Organization ( O) [id number]-[id number] [id number]-7xb0-91x6-4e49-sc4i74551b5g ANSI-Medicaid [id number] ANSI-Health Maintenance Organization ( O) [id number]-2c3p-[id number]-b6i1-622l-6y8t-[id number] ANSI-Medicaid [id number] ANSI-Health Maintenance Organization ( O) [id number]-p039-3p71-lp9a-[id number] 4jvy4dci-u630-4o47-og4a-[id number] ANSI-Medicaid [id number] ANSI-Medicaid [id number] ANSI-Health Maintenance Organization ( O) [id number] ANSI-Medicare Part B [id number] ANSI-Medicaid [id number] ANSI-Health Maintenance Organization ( O) [id number] [id number]-npy8-7981-3eyj-[id number] ANSI-Medicaid [id number] ANSI-Medicare Part B [id number] ANSI-Medicaid [id number] ANSI-Medicare Part B [id number] ANSI-Medicaid [id number] ANSI-Medicaid [id number] ANSI-Medicare Part B [id number] ANSI-Medicaid [id number] ANSI-Medicare Part B [id number] ANSI-Medicare Part B [id number] ANSI-Medicaid [id number] ANSI-Medicare Part B [id number] ANSI-Medicaid [id number] ANSI-Medicare Part B [id number] ANSI-Medicaid [id number] ANSI-Medicare Part B [id number] ANSI-Medicaid [id number] ANSI-Medicare Part B [id number] ANSI-Medicaid [id number] ANSI-Medicare Part B [id number] ANSI-Medicaid [id number] ANSI-Medicaid [id number] ANSI-Medicare Part B [id number] ANSI-Medicaid [id number] ANSI-Medicare Part B [id number] [employer] [facility] [id number] SP [id number] MEDICAID [facility] [id number] SP [id number] ANSI-Medicaid [id number] ANSI-Medicare Part B [id number] ANSI-Medicaid [id number] ANSI-Medicare Part B [id number] ANSI-Medicaid [id number] ANSI-Medicare Part B [id number] [employer] [facility] [id number] SP [id number] ANSI-Medicare Part B [id number] ANSI-Medicaid [id number] MEDICAID [facility] [id number] SP [id number] ANSI-Medicare Part B [id number] ANSI-Medicaid [id number] MEDICARE [id number] SP [id number] A [employer] [id number] SP [id number] ANSI-Medicare Part B [id number] ANSI-Medicaid [id number] Medicaid of [place] Other 0 Self 0 Medicare Part A [facility] Other 0 Self 0 MEDICARE [id number] SP [id number] ANSI-Medicaid [id number] ANSI-Medicare Part B [id number] ANSI-Medicaid [id number] ANSI-Medicare Part B [id number] ANSI-Medicaid [id number] ANSI-Medicare Part B [id number] ANSI-Medicare Part B [id number] ANSI-Medicaid [id number] [facility]-Medicare Part B [id number] [facility]-Medicaid [id number] Medicaid - Sara Campbell [id number] Medica id [id number] ID IDENTIFICATION [id number] Other In surance [id number] [employer] [id number] Commercial Insurance [id number] [employer]/CHADIAN O [id number] O [id number] MEDICARE COMPLETE [id number] SP [id number] MEDICARE COMPLETE [id number] SP [id number] MEDICARE COMPLETE UNAVAILABLE SP UNAVAILABLE [facility] [id number] SP [id number] MEDICARE [id number] SP [id number] A Medicare [facility] Medicare Primary Self Medicare [facility] Medicare Primary Self [place] UNAVAIL[place] SP UNAVAILABLE MEDICARE [id number] SP [id number] Problems, Conditions, and Diagnoses Code Display Name Description Problem Type Effective Dates Data Source(s) F41.8 984162408 Anxiety about health Problem 07/03/2019 12:0 0:00 AM EDT eCW1 ([facility]) F41.8 [id number] Anxiety about health Problem 07/03/2019 12:0 0:00 AM EDT eCW1 ([facility]) I62.9 [id number] Intracranial hemorrhage Problem 04/11/2019 1 2:00:00 AM EST eCW1 ([facility]) I62.9 [id number] Intracranial hemorrhage Problem 04/11/2019 1 2:00:00 AM EST [facility] ([facility]) Z66 Do not resuscitate DO NOT RESUSCITATE Diagnosis 02:40:00 PM [facility] Z90.89 Acquired absence of other organs ACQUIRED ABSENC E OF OTHER ORGANS Diagnosis 05/02/2020 02:40:00 PM [facility] Z87.39 Personal history of other di seases of the musculoskeletal system and connective tissue PERSONAL HISTORY OF DISEASES OF THE MS SYS AND CON Diagnosis 05/02/2020 02:40:00 PM [facility] Z89.511 Acquired absence of right leg below knee ACQUIRED ABSENCE OF RIGHT LEG BELOW KNEE Diagnosis 05/02/2020 02:40:00 PM [facility] 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 GATHERER (CU RRENT) USE OF ASPIRIN Diagnosis 05/02/2020 02:40:00 PM [facility] Z79.4 watermelon inspector (current) use of insulin SENIOR CARE (CU RRENT) USE OF INSULIN Diagnosis 05/02/2020 02:40:00 PM [facility] G31.9 Degenerative disease of nervous system, unspecified DEGENERATIVE DISEASE OF NERVOUS SYSTEM, UNSPECIFIE Diagnosis 05/02/2020 02:40:00 PM [facility] J44.9 Chronic obstructive pulmonary disease, u nspecified CHRONIC OBSTRUCTIVE PULMONARY DISEASE, UNSPECIFIED Diagnosis 05/02/2020 02:40:00 PM [facility] E61.1 Iron deficiency IRON DEFICIENCY Diagnosis 05/02/2020 02:4 0:00 PM [facility] F41.9 Anxiety disorder, unspecified ANXIETY DISORDER, UNSPEC IFIED Diagnosis 05/02/2020 02:40:00 PM [facility] R79.89 Other specified abnormal findings of blo od chemistry OTHER SPECIFIED ABNORMAL FINDINGS OF BLOOD MILL TENDER WASHING Diagnosis 05/02/2020 02:40:00 PM [facility] E87.6 Hypokalemia HYPOKALEMIA Diagnosis 05/02/2020 02:40:00 PM [facility] E83.42 Hypomagnesemia HYPOMAGNESEMIA Diagnosis 05/02/2020 02:40: 00 PM [facility] B37.2 Candidiasis of skin and nail CANDIDIASIS OF SKIN AND N AIL Diagnosis 05/02/2020 02:40:00 PM [facility] E55.9 Vitamin D deficiency, unspecified VITAMIN D DEFI CIENCY, UNSPECIFIED Diagnosis 05/02/2020 02:40:00 PM [facility] F43.20 Adjustment disorder, unspecified ADJUSTMENT DISO RDER, UNSPECIFIED Diagnosis 05/02/2020 02:40:00 PM [facility] H40.9 Unspecified glaucoma UNSPECIFIED GLAUCOMA Diagnosis 05/02/2020 02:40:00 PM [facility] K21.9 Gastro-esophageal reflux disease without esophagitis GASTRO-ESOPHAGEAL REFLUX DISEASE WITHOUT ESOPHAGIT Diagnosis 05/02/2020 02:40:00 PM [facility] E78.5 Hyperlipidemia, unspecified HYPERLIPIDEMIA, UNSPECIFIE D Diagnosis 05/02/2020 02:40:00 PM [facility] I13.10 Hypertensive heart and chron ic kidney disease without heart failure, with stage 1 through stage 4 chronic kidney disease, or unspecified chronic kidney disease HYP HRT CHR KDNY DIS W/O HRT FAIL, W STG 1-4/UNS Diagnosis 05/02/2020 02:40:00 PM [facility] I73.9 Peripheral vascular disease, unspecified PERIPHERAL VASCULAR DISEASE, UNSPECIFIED Diagnosis 05/02/2020 02:40:00 [facility] E11[facility]8 Type 2 diabetes mellitus with unspecifie d complications TYPE 2 DIABETES MELLITUS WITH UNSPECIFIED COMPLICA Diagnosis 05/02/2020 02:40:00 PM [facility] E87.8 Other disorders of electroly te and fluid balance, not elsewhere classified OTH DISORDERS OF ELECTROLYTE AND FLUID BALANCE, NE Diagnosis 05/02/2020 02:40:00 PM [facility] D64.9 Anemia, unspecified ANEMIA, UNSPECIFIED Diagnosis 0 05/02/2020 02:40:00 PM [facility] R79.82 Elevated C-reactive protein (CRP) ELEVATED C-YOLETTE CTIVE PROTEIN (CRP) Diagnosis 05/02/2020 02:40:00 PM [facility] N18.2 Chronic kidney disease, stage 2 (mild) C HRONIC KIDNEY DISEASE, STAGE 2 (MILD) Diagnosis 05/02/2020 02:40:00 PM [facility] l A04.72 ENTEROCOLITIS D/T CLOSTRIDIUM DIFFICILE, NOT SPCF ENTEROCOLITIS D/T CLOSTRIDIUM DIFFICILE, NOT SPCF Diagnosis 05/02/2020 02:40:00 PM [facility] Z89.512 Acquired absence of left leg below knee ACQUIRED ABSENCE OF LEFT LEG BELOW KNEE Diagnosis 05/02/2020 02:40:00 PM [facility] l E87.1 Hypo-osmolality and hyponatremia HYPO-OSMOLALITY AND HYPONATREMIA Diagnosis 05/02/2020 02:40:00 PM [facility] E43 Unspecified severe protein-calorie malnu trition UNSPECIFIED SEVERE PROTEIN- CALORIE MALNUTRITION Diagnosis 05/02/2020 02:40:00 [facility] R26.89 Other abnormalities of gait and mobility OTHER ABNORMALITIES OF GAIT AND MOBILITY Diagnosis 05/02/2020 02:40:00 PM [facility] R26.2 Difficulty in walking, not elsewhere cla ssified DIFFICULTY IN WALKING, NOT ELSEWHERE CLASSIFIED Diagnosis 04/29/2020 03:00:00 PM [facility] N18.9 Chronic kidney disease, unspecified CHRONIC KIDN EY DISEASE, UNSPECIFIED Diagnosis 04/29/2020 03:00:00 PM [facility] E86.0 Dehydration DEHYDRATION Diagnosis 04/29/2020 03:00:00 PM [facility] F32.9 Major depressive disorder, single episod e, unspecified MAJOR DEPRESSIVE DISORDER, SINGLE EPISODE, UNSPECI Diagnosis 04/29/2020 03:00:00 PM [facility] D50.9 Iron deficiency anemia, unspecified IRON DEFICIE NCY ANEMIA, UNSPECIFIED Diagnosis 04/29/2020 03:00:00 PM [facility] B37.9 Candidiasis, unspecified CANDIDIASIS, UNSPECIFIED Diag nosis 04/29/2020 03:00:00 PM [facility] I12.9 Hypertensive chronic kidney disease with stage 1 through stage 4 chronic kidney disease, or unspecified chronic kidney disease HYPERTENSIVE CHRONIC KIDNEY DISEASE W STG 1-4/UNSP Diagnosis 04/29/2020 03:00:00 PM [facility] E11.51 Type 2 diabetes mellitus wit h diabetic peripheral angiopathy without gangrene TYPE 2 DIABETES W DIABETIC PERIPHERAL ANGIOPATH W/ Diagnosis 04/29/2020 03:00:00 PM [facility] Z98.890 OTHER SPECIFIED POSTPROCEDURAL STATES OT HER SPECIFIED POSTPROCEDURAL STATES Diagnosis 04/29/2020 03:00:00 PM [facility] l A41.9 Sepsis, unspecified organism SEPSIS, UNSPECIFIED ORGAN ISM Diagnosis 04/29/2020 03:00:00 PM [facility] N17.9 Acute kidney failure, unspecified ACUTE KIDNEY F AILURE, UNSPECIFIED Diagnosis 04/29/2020 03:00:00 PM [facility] M86.10 Other acute osteomyelitis, unspecified s ite OTHER ACUTE OSTEOMYELITIS, UNSPECIFIED SITE Diagnosis 04/29/2020 03:00:00 PM [facility] l R50.9 Fever, unspecified FEVER, UNSPECIFIED Diagnosis 11:09:00 AM [facility] R19.7 Diarrhea, unspecified DIARRHEA, UNSPECIFIED Diagnosis 04/15/2020 11:09:00 [facility] Z86.39 Personal history of other endocrine, nut ritional and metabolic disease PERSONAL HISTORY OF ENDO, NUTRITIONAL AND METABOLI Diagnosis 11:09:00 [facility] K21.00 GASTRO-ESOPHAGEAL REFLUX DIS WITH ESOPHA GITIS, WIT GASTRO-ESOPHAGEAL REFLUX DIS WITH ESOPHAGITIS, WIT Diagnosis 04/15/2020 11:09:00 [facility] J42 Unspecified chronic bronchitis UNSPECIFIED CHRONIC BRO NCHITIS Diagnosis 04/15/2020 11:09:00 [facility] E78.2 Mixed hyperlipidemia MIXED HYPERLIPIDEMIA Diagnosis 04/15/2020 11:09:00 [facility] I11.9 Hypertensive heart disease without heart failure HYPERTENSIVE HEART DISEASE WITHOUT HEART FAILURE Diagnosis 04/15/2020 11:09:00 AM [facility] M86.9 Osteomyelitis, unspecified OSTEOMYELITIS, UNSPECIFIED Diagnosis 04/15/2020 11:09:00 AM [facility] R53.81 Other malaise OTHER MALAISE Diagnosis 04/15/2020 11:09:00 AM [facility] E78.1 Pure hyperglyceridemia E78.1 - Pure hyperglyceridemia Diagnosis 07/26/2019 10:14:00 AM [facility] Surgeries/Procedures Procedure Description Date Indications Data Source(s) Introduction of Insulin into Subcutaneous Tissue, Percutaneo us Approach 05/02/2020 12:00:00 AM [facility] Introduction of Other Therapeutic Substa nce into Peripheral Vein, Percutaneous Approach 05/02/2020 12:00:00 AM [facility] Introduction of Anti-inflammatory into R espiratory Tract, Via Natural or Artificial Opening 05/02/2020 12:00:00 AM [facility] Muscle Performance Treatment of Musculoskeletal System - Who le Body 05/02/2020 12:00:00 AM [facility] Introduction of Other Anti-infective int o Peripheral Vein, Percutaneous Approach 04/29/2020 12:00:00 AM [facility] CHRON CARE MGMT SRVC 20 MIN 08/14/2019 12:00:00 AM EDT eCW1 ([facility]) PHYSICIAN TELEPHONE EVALUATION 21-30 MIN 07/18/2019 12 :00:00 AM EDT eCW1 ([facility]) Office Visit, Est Pt., Level 3 PC 07/12/2019 12:00:00 AM EDT eCW1 ([facility]) HOME V, EP EXPANDED 05/02/2019 12:00:00 AM EST eCW1 ([facility]) TRANS CARE MGMT 7 DAY DISCH 03/28/2019 12:00:00 AM EST eCW1 ([facility]) Results ID Date Data Source [id number] 05/13/2020 09:59:00 AM [facility] l In-Patient NoteNote:LABORATORY TEST RX: Dx Hyponatremia Hyperkalemia OBTAIN BEFORE 05/16/2020 PCP tel [phone] CBC with [id number] Iron Name Value Range Interpretation Code Description Data Marcela rce(s) Supporting Document(s) ID Date Data Source [id number] 05/11/2020 10:18:00 AM [facility] l DATE OF EXAMINATION: 05/11/2020 9:33 EST BRAIN W/O CONTRAST HISTORY: Altered mental status TECHNIQUE: This CT exam was performed using the following dose reduction techniques:automatic exposure control, adjustment of mA and/or kV according to thepatient's size, and use of iterative reconstruction technique. Standard contiguous axial spiral imaging was obtained from the skull basethrough the vertex without contrast administration and with coronalreformatting. FINDINGS: BRAIN: Moderate atrophy and chronic deep white matter ischemic changes arenoted. There are no parenchymal hematomas mass effect or midline shift. Thereare no extra-axial collections. Mild calcified plaque formation of the rightvertebral artery is noted. IMPRESSION: Moderate diffuse cerebral atrophy of aging and chronic deep white matterischemic changes. Electronically signed in [id number] by: Hardy Duran M.D. 05/11/2020 10:13 EST Name Value Range Interpretation Code Description Data Marcela rce(s) Supporting Document(s) ID Date Data Source [id number] 05/12/2020 10:05:00 AM EST [facility] Name Value Range Interpretation Code Description Data [facility] rce(s) Supporting Document(s) Cortisol 17.8 ug/dL [facility] C ortisol AM 6.2 - 19.4 Cortisol PM 2.3 - 11.9 ID Date Data Source [id number] 05/11/2020 07:29:00 AM EST [facility] Name Value Range Interpretation Code Description Data [facility] rce(s) Supporting Document(s) GLUCOSE 155 mg/dL 74-106 H [facility] BLOOD UREA NITROGEN 35 mg/dL 7-18 H [facility] ital CREATININE 1.44 mg/dL 0.7-1.3 H [facility] SODIUM 124 mmol/L 136-145 L [facility] POTASSIUM 5.0 mmol/L 3.5-5.1 [facility] CHLORIDE 92 mmol/L 98-107 L [facility] CO2 29 mmol/L 21-32 [facility] CALCIUM 8.4 mg/dL 8.5-10.1 L [facility] ANION GAP 3.0 mmol/L 5-12 L [facility] GLOMERULAR FILTRATION RATE 48 mL/min [facility] GFR IS CALCULATED IN mL/min/1.73m2 ROBERT L FUNCTION: >90MILDLY DECREASED: 60-89MILDY TO MODERATELY DECREASED: 45-59 MODERATELY TO SEVERELY DECREASED: 30-44SEVERELY DECREASED: 15-29RENAL FAILURE: <15 AST 13 U/L 15-37 L [facility] ALT 16 U/L 12-78 [facility] ALKALINE PHOSPHATASE 56 U/L 46-116 [facility] pital TOTAL BILIRUBIN 0.2 mg/dL 0.2-1.0 [facility] TOTAL PROTEIN 6.3 g/dl 6.4-8.2 L [facility] ALBUMIN 2.9 gm/dL 3.4-5.0 L [facility] ID Date Data Source [id number] 05/11/2020 07:29:00 AM EST [facility] Name Value Range Interpretation Code Description Data Marcela rce(s) Supporting Document(s) MAGNESIUM 1.9 mg/dL 1.8-2.4 [facility] ID Date Data Source [id number] 05/11/2020 07:20:00 AM [facility] l Name Value Range Interpretation Code Description Data Marcela rce(s) Supporting Document(s) PROTHROMBIN TIME (PATIENT) 9.8 SECONDS 9.1-11.6 [facility] INR 0.94 0.87-1.06 [facility] ID Date Data Source [id number] 05/11/2020 07:08:00 AM [facility] l Name Value Range Interpretation Code Description Data Marcela rce(s) Supporting Document(s) WHITE BLOOD COUNT 9.1 K/mm3 4.0-10.0 [facility] al RED BLOOD COUNT 3.82 M/mm3 4.50-6.00 L [facility] HEMOGLOBIN 11.1 gm/dL 14.0-18.0 L [facility] HEMATOCRIT 32.6 % 42.0-54.0 [facility] MEAN CELL VOLUME 85.3 fl 80-96 [facility] MEAN CORPUSCULAR HEMOGLOBIN 29.1 pg 27.0-31.0 [facility] MEAN CORPUSCULAR HGB CONC 34.0 g/dl 32.0-36.0 [facility] RED CELL DISTRIBUTION WIDTH 14.2 % 10.0-14.5 [facility] PLATELET COUNT 409 K/mm3 172-450 [facility] MEAN PLATELET VOLUME 9.4 fl 9.0-13.0 [facility] pital GRAN % 46.5 % 50-80.0 L [facility] IG% 0.1 % 0.0-0.2 [facility] LYMPH % 20.3 % 25.0-50.0 L [facility] MONO % 4.7 % 2.0-10.0 [facility] EOS % 27.7 % 0-5.0 *H [facility] BASO % 0.7 % 0.0-2.0 [facility] GRAN # 4.3 K/mm3 2.0-8.00 [facility] IG# 0.0 K/mm3 0.0-0.2 [facility] LYMPH # 1.9 K/mm3 1.0-5.0 [facility] MONO # 0.4 K/mm3 0.10-1.20 [facility] EOS # 2.5 K/mm3 0.0-0.5 *H [facility] BASO # 0.1 K/mm3 0.0-0.2 [facility] ID Date Data Source [id number] 05/11/2020 07:07:00 AM [facility] Name Value Range Interpretation Code Description Data Marcela rce(s) Supporting Document(s) PH 7.35 7.31-7.41 [facility] VENOUS PCO2 54.8 mmHg 41-51 [facility] VENOUS PO2 43 mmHg 35-42 H [facility] VENOUS BLODD O2 SATURATION 55.2 % 68-77 L [facility] VENOUS BLOOD HCO3 29.2 meq/L 24.0-25.0 [facility] VENOUS BASE EXCESS 3.0 -3.0-3.0 [facility] VENOUS BLOOD CO2 30.9 mmol/L 23.0-32.0 [facility] ID Date Data Source [id number] 05/10/2020 06:45:00 AM [facility] l Name Value Range Interpretation Code Description Data Marcela rce(s) Supporting Document(s) GLUCOSE 165 mg/dL 74-106 H [facility] BLOOD UREA NITROGEN 26 mg/dL 7-18 H [facility] ital CREATININE 1.46 mg/dL 0.7-1.3 H [facility] SODIUM 122 mmol/L 136-145 L [facility] POTASSIUM 5.2 mmol/L 3.5-5.1 H [facility] CHLORIDE 88 mmol/L 98-107 *L [facility] CO2 30 mmol/L 21-32 [facility] CALCIUM 8.8 mg/dL 8.5-10.1 [facility] ANION GAP 4.0 mmol/L 5-12 L [facility] GLOMERULAR FILTRATION RATE 47 mL/min [facility] GFR IS CALCULATED IN mL/min/1.73m2 ROBERT L FUNCTION: >90MILDLY DECREASED: 60-89MILDY TO MODERATELY DECREASED: 45-59 MODERATELY TO SEVERELY DECREASED: 30-44SEVERELY DECREASED: 15-29RENAL FAILURE: <15 ID Date Data Source [id number] 05/09/2020 06:32:00 AM [facility] l Name Value Range Interpretation Code Description Data Marcela rce(s) Supporting Document(s) GLUCOSE 214 mg/dL 74-106 H [facility] BLOOD UREA NITROGEN 19 mg/dL 7-18 [facility] ital CREATININE 1.40 mg/dL 0.7-1.3 H [facility] SODIUM 126 mmol/L 136-145 L [facility] POTASSIUM 5.5 mmol/L 3.5-5.1 H [facility] CHLORIDE 92 mmol/L 98-107 L [facility] CO2 31 mmol/L 21-32 [facility] CALCIUM 8.8 mg/dL 8.5-10.1 [facility] ANION GAP 3.0 mmol/L 5-12 L [facility] GLOMERULAR FILTRATION RATE 50 mL/min [facility] GFR IS CALCULATED IN mL/min/1.73m2 ROBERT L FUNCTION: >90MILDLY DECREASED: 60-89MILDY TO MODERATELY DECREASED: 45-59 MODERATELY TO SEVERELY DECREASED: 30-44SEVERELY DECREASED: 15-29RENAL FAILURE: <15 ID Date Data Source [id number] 05/08/2020 11:39:00 PM EST [facility] In-Patient NoteNote:05/08/2020 22;40 I was notified at 22:40 about genna Fleming's potassium level . I am at his bed side at 22: 59. THe EKG shows sinus rhythm at 70 bpm.His EKG obtained at 22:49 showssinus rh\ythm 70 bpm.Patient is alert and oriented x 3 There is no chest pain , no palpitations, no difficulty breathing.I did explain to Mr Fleming he will get treatment with inhaled medications as wellas furosemide. With several blood draws today that show a consistent trend of hyperkalemia. At this time the exact cause is puzzling.Mr Fleming is receiving albuterol neb now which we will return in 2 hrs. We are going to give the patient lasix and recheck his potassium levels at 6 am. Name Value Range Interpretation Code Description Data Marcela rce(s) Supporting Document(s) ID Date Data Source [id number] 05/08/2020 10:34:00 PM EST [facility] Name Value Range Interpretation Code Description Data Marcela rce(s) Supporting Document(s) TSH 2.454 uIU/mL 0.360-3.740 [facility] ID Date Data Source [id number] 05/08/2020 10:21:00 PM EST [facility] Name Value Range Interpretation Code Description Data Marcela rce(s) Supporting Document(s) GLUCOSE 186 mg/dL 74-106 H [facility] BLOOD UREA NITROGEN 16 mg/dL 7-18 [facility] ital CREATININE 1.35 mg/dL 0.7-1.3 H [facility] SODIUM 125 mmol/L 136-145 L [facility] CALLED TO [facility] 05/080 POTASSIUM 6.6 mmol/L 3.5-5.1 *H [facility] CALLED TO [facility] 05/08 2220 CHLORIDE 94 mmol/L 98-107 L [facility] CO2 29 mmol/L 21-32 [facility] CALCIUM 8.6 mg/dL 8.5-10.1 [facility] ANION GAP 2.0 mmol/L 5-12 L [facility] GLOMERULAR FILTRATION RATE 52 mL/min [facility] GFR IS CALCULATED IN mL/min/1.73m2 ROBERT L FUNCTION: >90MILDLY DECREASED: 60-89MILDY TO MODERATELY DECREASED: 45-59 MODERATELY TO SEVERELY DECREASED: 30-44SEVERELY DECREASED: 15-29RENAL FAILURE: <15 ID Date Data Source [id number] 05/09/2020 02:54:00 PM EST [facility] dawn Name Value Range Interpretation Code Description Data Marcela rce(s) Supporting Document(s) OSMS 276 mOsm/KG 275-300 N [facility] ID Date Data Source [id number] 05/09/2020 02:51:00 PM [facility] Name Value Range Interpretation Code Description Data [facility] rce(s) Supporting Document(s) OSMO URINE 208 MMOL/KG 400-850 L [facility] ID Date Data Source [id number] 05/08/2020 09:05:00 PM EST [facility] l Name Value Range Interpretation Code Description Data [facility] rce(s) Supporting Document(s) SODIUM,RANDOM URINE 59 mmol/L 5-300 [facility] ital ID Date Data Source [id number] 05/08/2020 06:10:00 PM [facility] See AddendumProgress Note GeneralEn counter:Chart reviewed. Patient interviewed and examined. Labs, medications and orders viewed by me. Discussed with staff. All questions were answered. SubjectiveGeneral Condition:The patient is feeling much better. He is no longer having loose watery stools. He had a more soft bowel movement this morning. There was no melena or blood. The patient denies fever or chills and he has been afebrile. His vital signs are stable. He denies any nausea or vomiting. His appetite is excellent. He has not felt lightheaded or dizzy and denies headache. He denies any new EENT complaints. He is breathing at baseline and has not felt short of breath. He denies any cough or wheezing. He has not had palpitations and denies chest pain. He denies abdominal pain and has no other GI complaints. He continues tourinate without a problem and has no new genitourinary complaints. He is havingno discomfort in either of his stumps. He continues to work with physical therapy. He is using a slide board for transfers. He denies feeling weak and has had no new numbness or tingling. He denies any new skin problems. Full review of systems is as noted above, otherwise is negative. ObjectiveNote:Current MedicationsAcetaminophen 650 MG Q4H PRN PO fever, pain and/or headache Aluminum Hydroxide 30 ML Q4H PRN PO INDIGESTION Aspirin 81 MG DAILY PO Brimonidine Tartrate 1 DROP BID OU Cholecalciferol 2,000 UNIT DAILY PO Clopidogrel Bisulfate 75 MG DAILY PO Ferrous Sulfate 325 MG BID PO Heparin Sodium 5,000 UNIT BID SC Insulin Glargine 26 U HS SC Insulin Human Regular MODERATE DOSE - Sliding Scale < 60 MG/DL * Follow Hypoglycemic Protocol 61 - 150 No COVERAGE 151 - 180 2 UNITS 181 - 240 4 UNITS 241 - 300 6 UNITS 301 - 350 8 UNITS 351 - 400 10 UNITS > 400 Serum Glucose, Notify Provider ACHS SC Latanoprost 1 DROP HS OP Lisinopril 10 MG DAILY PO Magnesium Oxide 400 MG BID PO Multivitamins 1 TAB DAILY PO Nutritional Formula (Lactose Free) 1 CAP BID PO Nystatin 1 DOSE BID TP Omeprazole 40 MG DAILY PO Vancomycin HCl 125 MG QID PO Vital Signs 05/07 0800 Temp 97.6 98.0 Pulse 72 80 Resp 16 18 B/P 136/58 120/60 B/P Mean Pulse Ox 96 97 O2 Delivery O2 Flow Rate FiO2 Temp; 98.0, Pulse; 80, Resp: 18, B/P: 120/60 SaO2: 97, O2 Status: PHYSICAL EXAMINATION: General: Pleasant white male who is alert and oriented. He continues to be cooperative. He is in no distress.Head: AtraumaticEENT pupils reactive, sclerae anicteric, ENT evaluation is unremarkable except from just having a couple of teeth.Neck normal inspection, non-tender, supple, full range of motion, there was no JVDRespiratory chest non-tender, lungs clear, normal breath sounds, no respiratory distress, no accessory muscle useCardiovascular regular rate/rhythm, no JVD, no murmurGastrointestinal normal bowel sounds, non tender, soft, no organomegaly, no pulsatile massBack normal inspection, no CVA tenderness, no vertebral tendernessExtremities patient has bilateral BKA's. 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0 gm/dL) 10.4 L Hct (42.0 - 54.0 %) 31.2 L MCV (80 - 96 fl) 86.9 MCH (27.0 - 31.0 pg) 29.0 MCHC Differential (32.0 - 36.0 g/dl) 33.3 RDW (10.0 - 14.5 %) 14.3 Plt Count (172 - 450 K/mm3) 412 MPV (9.0 - 13.0 fl) 9.6 Gran % (Auto) (50 - 80.0 %) 50.9 Gran # (2.0 - 8.00 K/mm3) 5.2 Immature Gran % (0.0 - 0.2 %) 0.4 H Lymphocytes % (25.0 - 50.0 %) 17.3 L Monocytes % (2.0 - 10.0 %) 4.6 Eosinophils % (0 - 5.0 %) 26.0 *H Basophils % (0.0 - 2.0 %) 0.8 Immature Gran # (0.0 - 0.2 K/mm3) 0.0 Lymphocytes # (1.0 - 5.0 K/mm3) 1.8 Monocytes # (0.10 - 1.20 K/mm3) 0.5 Eosinophils # (0.0 - 0.5 K/mm3) 2.7 *H Basophils # (0.0 - 0.2 K/mm3) 0.1 EKG: Normal sinus rhythm, PAC's, there were no acute ST or T-wave changes. Assessment/PlanAllergiesCoded Allergies:Penicillins (Intermediate, Hives 05/02/20) Additional NotesLab work on Monday the : CMP, CBC with differential, magnesium levelContinue Maalox and Tylenol as neededMaintain DVT prophylaxis with heparinContinue probioticContinue multivitaminProblem List 1. Ambulatory dysfunction A&PThe patient is making progress. Continue to work with staff and PT 2. History of left below knee amputation A&PAgain, continue to work with staff and PTT. We're awaiting his new prosthesis. Work with prosthetics. 3. Clostridium difficile colitis A&PComplete 10 day course of oral vancomycin. Monitor symptoms as well. Continue contact precautions per protocol 4. Diarrhea of infectious origin A&PThis seems to finally be improving. Continue to monitor response to treatment. Once stools are well formed, contact precautions can be DC'd 5. Hyperkalemia A&PQuestion if this is a true elevation and not hemolyzed specimen. We will therefore repeat his chemistries. For completeness I had an EKG performed and there were no acute ST T wave changes. If still is elevated then will initiate treatment. 6. Chronic kidney disease A&PThe patient did have a little drop in his renal function on his last lab work (GFR of 52), and today's is now essentially unchanged (GFR of 55). Try to avoid nephrotoxic medications. Follow-up renal function on Monday. 7. Hyponatremia A&PThe patient now has significant hyponatremia and it developed over the past 4 days. This may all be secondary to his diarrhea. We will repeat his chemistries, and trend levels. 8. Hypochloremia A&PThe patient now has significant hypochloremia (and it was high 4 days ago) and it developed over the past 4 days. This may all be secondary to his diarrhea. We will repeat his chemistries, and trend levels. 9. Hypomagnesemia A&PHis magnesium level is improving with supplementation. We will and 6 more dosesof magnesium oxide and recheck a level on Monday 10. Elevated WBC count A&PThis is improving. Continue to trend WBC to make sure normalizes. 11. Abnormal CBC A&PThis is also improving. Follow-up differential as well, to make sure it is normalizing. 12. Normocytic anemia A&PThis is improving. Continue to follow H&H. Continue iron supplementation 13. Elevated C-reactive protein (CRP) A&PThis is much improved and no further follow-up is needed 14. Severe protein- calorie malnutrition A&PPatient appetite is excellent. Staff continue to encourage by mouth intake. Wehave added Liquacel. Follow dietitian recommendations as well 15. Diabetes mellitus type 2 with complications A&PPatient does have frequent elevated glucose readings. Continue diabetic diet. Continue to monitor blood sugars and provide sliding scale coverage. We will increase his Lantus dose to 26 units daily at bedtime and monitor response. 16. PAD (peripheral artery disease) A&PContinue aspirin, clopidogrel as well as secondary prevention 17. Hypertension A&PThe patient will remain on a heart healthy diet. Blood pressure has been stablewith the addition of lisinopril. Question if the addition of lisinopril is raising his potassium. Continue to monitor electrolytes as well as renal function. Follow blood pressure closely as well 18. Dyslipidemia A&PThe patient may benefit from niacin or omega-3 fats. This can be addressed by his PCP as an outpatient. The only other option to increase his HDL is exercise, and unfortunately he is limited from an ambulatory status 19. GERD (gastroesophageal reflux disease) A&PContinue PPI 20. Glaucoma A&PContinue current ophthalmic preparations 21. Adjustment reaction A&PThe patient was seen by behavioral health. Medications are not indicated. 22. Vitamin D deficiency A&PContinue vitamin D supplementation. 23. Candidiasis of skin A&PThis has since improved. Staff is providing nystatin to prevent further skin issues from his recent significant diarrhea 24. History of right below knee amputation A&PThis remained stable and patient does use his prosthesis. VTE ProphylaxisVTE Prophylaxis: Maintain DVT prophylaxis with heparin. ADDENDUM: 05/08/20 1809 ADDENDUM: Jordan Brice DO on 05/08/20 at 1803 Laboratory Tests 05/08 05/08 05/08 0630 1425 1700 Chemistry Sodium (136 - 145 mmol/L) 130 L 124 L 124 L Potassium (3.5 - 5.1 mmol/L) 6.3 H 6.0 H 5.4 H Chloride (98 - 107 mmol/L) 96 L 91 L 91 L Carbon Dioxide (21 - 32 mmol/L) 31 31 29 Anion Gap (5 - 12 mmol/L) 3.0 L 2.0 L 4.0 L BUN (7 - 18 mg/dL) 18 17 16 Creatinine (0.7 - 1.3 mg/dL) 1.28 1.31 H 1.31 H Estimated GFR (MDRD) (mL/min) 55 53 53 Glucose (74 - 106 mg/dL) 197 H 222 H 204 H Calcium (8.5 - 10.1 mg/dL) 8.7 8.4 L 8.7 Magnesium (1.8 - 2.4 mg/dL) 1.5 L Hematology WBC (4.0 - 10.0 K/mm3) 10.3 H RBC (4.50 - 6.00 M/mm3) 3.59 L Hgb (14.0 - 18.0 gm/dL) 10.4 L Hct (42.0 - 54.0 %) 31.2 L MCV (80 - 96 fl) 86.9 MCH (27.0 - 31.0 pg) 29.0 MCHC Differential (32.0 - 36.0 g/dl) 33.3 RDW (10.0 - 14.5 %) 14.3 Plt Count (172 - 450 K/mm3) 412 MPV (9.0 - 13.0 fl) 9.6 Gran % (Auto) (50 - 80.0 %) 50.9 Gran # (2.0 - 8.00 K/mm3) 5.2 Immature Gran % (0.0 - 0.2 %) 0.4 H Lymphocytes % (25.0 - 50.0 %) 17.3 L Monocytes % (2.0 - 10.0 %) 4.6 Eosinophils % (0 - 5.0 %) 26.0 *H Basophils % (0.0 - 2.0 %) 0.8 Immature Gran # (0.0 - 0.2 K/mm3) 0.0 Lymphocytes # (1.0 - 5.0 K/mm3) 1.8 Monocytes # (0.10 - 1.20 K/mm3) 0.5 Eosinophils # (0.0 - 0.5 K/mm3) 2.7 *H Basophils # (0.0 - 0.2 K/mm3) 0.1 As I noted above, question if this is true hyperkalemia. Repeat potassium at 1425 was 6.0 and then at 1700, 5.4. This is without any intervention/treatment.What is also disconcerting is the significant hyponatremia/hypochloremia. The patient had a normal sodium and chloride on the eighth and nothing has changed clinically. In fact his C. difficile colitis symptoms have improved. The patient is not on a diuretic or medications that potentially could cause hyponatremia. He is not in CHF nor does have a history of CHF. He is not in liver or renal failure. This is not alcohol-related. There's been no significant change in his fluid intake. He has not had any major surgery or trauma.Therefore, we will send off urine sodium, urine and serum osmolality and see if we can get a better picture of his hyponatremia. We will follow accurate I's and O's as well. For completeness check TSH and we'll repeat a BMP at 10 PM. The patient's review of systems is unchanged since arthur vasquez today as is his physical examination. Name Value Range Interpretation Code Description Data [facility] Supporting Document(s) ID Date Data Source [id number] 05/08/2020 05:28:00 PM EST [facility] Name Value Range Interpretation Code Description Data [facility] Supporting Document(s) GLUCOSE 204 mg/dL 74-106 H [facility] BLOOD UREA NITROGEN 16 mg/dL 7-18 [facility] CREATININE 1.31 mg/dL 0.7-1.3 H [facility] SODIUM 124 mmol/L 136-145 L [facility] POTASSIUM 5.4 mmol/L 3.5-5.1 H [facility] CHLORIDE 91 mmol/L 98-107 L [facility] CO2 29 mmol/L 21-32 [facility] CALCIUM 8.7 mg/dL 8.5-10.1 [facility] ANION GAP 4.0 mmol/L 5-12 L [facility] GLOMERULAR FILTRATION RATE 53 mL/min [facility] GFR IS CALCULATED IN mL/min/1.73m2 ROBERT L FUNCTION: >90MILDLY DECREASED: 60-89MILDY TO MODERATELY DECREASED: 45-59 MODERATELY TO SEVERELY DECREASED: 30-44SEVERELY DECREASED: 15-29RENAL FAILURE: <15 ID Date Data Source [id number] 05/08/2020 02:43:00 PM [facility] l Name Value Range Interpretation Code Description Data [facility] rce(s) Supporting Document(s) GLUCOSE 222 mg/dL 74-106 H [facility] BLOOD UREA NITROGEN 17 mg/dL 7-18 [facility] CREATININE 1.31 mg/dL 0.7-1.3 H [facility] SODIUM 124 mmol/L 136-145 L [facility] POTASSIUM 6.0 mmol/L 3.5-5.1 H [facility] CHLORIDE 91 mmol/L 98-107 L [facility] CO2 31 mmol/L 21-32 [facility] CALCIUM 8.4 mg/dL 8.5-10.1 L [facility] ANION GAP 2.0 mmol/L 5-12 L [facility] GLOMERULAR FILTRATION RATE 53 mL/min [facility] GFR IS CALCULATED IN mL/min/1.73m2 ROBERT L FUNCTION: >90MILDLY DECREASED: 60-89MILDY TO MODERATELY DECREASED: 45-59 MODERATELY TO SEVERELY DECREASED: 30-44SEVERELY DECREASED: 15-29RENAL FAILURE: <15 ID Date Data Source [id number] 05/08/2020 09:41:00 AM EST [facility] In-Patient NoteNote:The patient will re quire following equipment at home: 36 inch slide board18 inch wheelchair with removable arm rest, elevate leg rests and anti-tippersDrop arm commodeSome electric hospital bed with mattress and side rales 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 He does require theabove equipment so that he may perform his ADLs as well as transfer and ambulate. Name Value Range Interpretation Code Description Data [facility] rce(s) Supporting Document(s) ID Date Data Source [id number] 05/08/2020 07:04:00 AM EST [facility] Name Value Range Interpretation Code Description Data [facility] rce(s) Supporting Document(s) MAGNESIUM 1.5 mg/dL 1.8-2.4 L [facility] ID Date Data Source [id number] 05/08/2020 07:04:00 AM EST [facility] Name Value Range Interpretation Code Description Data [facility] rce(s) Supporting Document(s) GLUCOSE 197 mg/dL 74-106 H [facility] BLOOD UREA NITROGEN 18 mg/dL 7-18 [facility] ital CREATININE 1.28 mg/dL 0.7-1.3 [facility] SODIUM 130 mmol/L 136-145 L [facility] POTASSIUM 6.3 mmol/L 3.5-5.1 H [facility] CHLORIDE 96 mmol/L 98-107 L [facility] CO2 31 mmol/L 21-32 [facility] CALCIUM 8.7 mg/dL 8.5-10.1 [facility] ANION GAP 3.0 mmol/L 5-12 L [facility] GLOMERULAR FILTRATION RATE 55 mL/min [facility] GFR IS CALCULATED IN mL/min/1.73m2 ROBERT L FUNCTION: >90MILDLY DECREASED: 60-89MILDY TO MODERATELY DECREASED: 45-59 MODERATELY TO SEVERELY DECREASED: 30-44SEVERELY DECREASED: 15-29RENAL FAILURE: <15 ID Date Data Source [id number] 05/08/2020 06:55:00 AM EST [facility] Name Value Range Interpretation Code Description [facility] WHITE BLOOD COUNT 10.3 K/mm3 4.0-10.[address] [facility] dawn RED BLOOD COUNT 3.59 M/mm3 4.50-6.00 L [facility] l HEMOGLOBIN 10.4 gm/dL 14.0-18.0 L [facility] HEMATOCRIT 31.2 % 42.0-54.0 L [facility] MEAN CELL VOLUME 86.9 fl 80-96 [facility] l MEAN CORPUSCULAR HEMOGLOBIN 29.0 pg 27.0-31.0 [facility] MEAN CORPUSCULAR HGB CONC 33.3 g/dl 32.0-36.0 [facility] RED CELL DISTRIBUTION WIDTH 14.3 % 10.0-14.5 [facility] PLATELET COUNT 412 K/mm3 172-450 [facility] MEAN PLATELET VOLUME 9.6 fl 9.0-13.0 [facility] pital GRAN % 50.9 % 50-80.0 [facility] IG% 0.4 % 0.0-0.2 H [facility] LYMPH % 17.3 % 25.0-50.0 L [facility] MONO % 4.6 % 2.0-10.0 [facility] EOS % 26.0 % 0-5.0 *H [facility] BASO % 0.8 % 0.0-2.0 [facility] GRAN # 5.2 K/mm3 2.0-8.00 [facility] IG# 0.0 K/mm3 0.0-0.2 [facility] LYMPH # 1.8 K/mm3 1.0-5.0 [facility] MONO # 0.5 K/mm3 0.10-1.20 [facility] EOS # 2.7 K/mm3 0.0-0.5 *H [facility] BASO # 0.1 K/mm3 0.0-0.2 [facility] ID Date Data Source [id number] 05/04/2020 04:14:00 PM [facility] In-Patient NoteNote:Laboratory Tests 05/04 05/04 0625 0625 Chemistry Sodium (136 - 145 mmol/L) 140 Potassium (3.5 - 5.1 mmol/L) 4.3 Chloride (98 - 107 mmol/L) 108 H Carbon Dioxide (21 - 32 mmol/L) 25 Anion Gap (5 - 12 mmol/L) 7.0 BUN (7 - 18 mg/dL) 16 Creatinine (0.7 - 1.3 mg/dL) 1.34 H Estimated GFR (MDRD) (mL/min) 52 Glucose (74 - 106 mg/dL) 224 H Calcium (8.5 - 10.1 mg/dL) 8.4 L Magnesium (1.8 - 2.4 mg/dL) 1.3 L Total Bilirubin (0.2 - 1.0 mg/dL) 0.2 AST (15 - 37 U/L) 15 ALT (12 - 78 U/L) 19 Alkaline Phosphatase (46 - 116 U/L) 49 C-Reactive Protein (0.0 - 3.0 mg/L) 10.1 H Total Protein (6.4 - 8.2 g/dl) 4.8 L Albumin (3.4 - 5.0 gm/dL) 2.0 L Triglycerides (0 - 150 mg/dL) 130 Cholesterol (0 - 200 mg/dL) 93 LDL Cholesterol, Calc (0 - 100 mg/dL) 43 HDL Cholesterol (40 - 60 mg/dL) 24 L Cholesterol/HDL Ratio (0.0 - 5.0) 3.9 Hematology WBC (4.0 - 10.0 K/mm3) 13.1 H RBC (4.50 - 6.00 M/mm3) 3.09 L Hgb (14.0 - 18.0 gm/dL) 9.0 L Hct (42.0 - 54.0 %) 27.4 L MCV (80 - 96 fl) 88.7 MCH (27.0 - 31.0 pg) 29.1 MCHC Differential (32.0 - 36.0 g/dl) 32.8 RDW (10.0 - 14.5 %) 15.2 H Plt Count (172 - 450 K/mm3) 331 MPV (9.0 - 13.0 fl) 10.0 Gran % (Auto) (50 - 80.0 %) 48.5 L Gran # (2.0 - 8.00 K/mm3) 6.4 Immature Gran % (0.0 - 0.2 %) 0.7 H Lymphocytes % (25.0 - 50.0 %) 15.8 L Monocytes % (2.0 - 10.0 %) 6.1 Eosinophils % (0 - 5.0 %) 28.1 *H Basophils % (0.0 - 2.0 %) 0.8 Immature Gran # (0.0 - 0.2 K/mm3) 0.1 Lymphocytes # (1.0 - 5.0 K/mm3) 2.1 Monocytes # (0.10 - 1.20 K/mm3) 0.8 Eosinophils # (0.0 - 0.5 K/mm3) 3.7 *H Basophils # (0.0 - 0.2 K/mm3) 0.1 Labs reviewed: CBC: Slightly higher leukocytosis. Normocytic anemia, essentially no change. Has abnormal differential. Continue iron supplementation. Repeat CBC with differential on Monday to trend WBC, H&H as well as differential. CMP, CRP and lipid profile: Elevated chloride improving. Chronic kidney diseaseslightly worse (stage III). Patient has hyperglycemia but is a diabetic. He has hypomagnesemia. Elevated CRP is much improved. Severe PCM. Positive dyslipidemia.We will supplement patient's magnesium with mag oxide 4 mg twice a day for 7 doses. Follow-up magnesium level on Monday. Follow-up BMP on Monday as well totrend chloride level, renal function and glucose. No further CRP levels are indicated. Await dietitian evaluation and recommendations for patient's PCM as well as his dyslipidemia. The dyslipidemia will need to be followed up as an outpatient. Name Value Range Interpretation Code Description Data [facility] rce(s) Supporting Document(s) ID Date Data Source [id number] 05/04/2020 07:37:00 AM [facility] l Name Value Range Interpretation Code Description Data [facility] rce(s) Supporting Document(s) CHOLESTEROL 93 mg/dL 0-200 [facility] TRIGLYCERIDES 130 mg/dL 0-150 [facility] LDL CHOLESTEROL 43 mg/dL 0-100 [facility] HDL CHOLESTEROL 24 mg/dL 40-60 [facility] CHOL/HDL RATIO 3.9 0.0-5.0 [facility] ID Date Data Source [id number] 05/04/2020 07:25:00 AM [facility] l Name Value Range Interpretation Code Description Data [facility] rce(s) Supporting Document(s) MAGNESIUM 1.3 mg/dL 1.8-2.4 [facility] ID Date Data Source [id number] 05/04/2020 07:25:00 AM [facility] l Name Value Range Interpretation Code Description Data [facility] rce(s) Supporting Document(s) C REACTIVE PROTEIN 10.1 mg/L 0.0-3.[address] [facility] dawn ID Date Data Source [id number] 05/04/2020 07:25:00 AM [facility] Name Value Range Interpretation Code Description Data [facility] rce(s) Supporting Document(s) GLUCOSE 224 mg/dL 74-106 H [facility] BLOOD UREA NITROGEN 16 mg/dL 7-18 [facility] ital CREATININE 1.34 mg/dL 0.7-1.3 H [facility] SODIUM 140 mmol/L 136-145 [facility] POTASSIUM 4.3 mmol/L 3.5-5.1 [facility] CHLORIDE 108 mmol/L 98-107 H [facility] CO2 25 mmol/L 21-32 [facility] CALCIUM 8.4 mg/dL 8.5-10.1 L [facility] ANION GAP 7.0 mmol/L 5-12 [facility] GLOMERULAR FILTRATION RATE 52 mL/min [facility] GFR IS CALCULATED IN mL/min/1.73m2 ROBERT L FUNCTION: >90MILDLY DECREASED: 60-89MILDY TO MODERATELY DECREASED: 45-59 MODERATELY TO SEVERELY DECREASED: 30-44SEVERELY DECREASED: 15-29RENAL FAILURE: <15 AST 15 U/L 15-37 [facility] ALT 19 U/L 12-78 [facility] ALKALINE PHOSPHATASE 49 U/L 46-116 [facility] TOTAL BILIRUBIN 0.2 mg/dL 0.2-1.0 [facility] TOTAL PROTEIN 4.8 g/dl 6.4-8.2 L [facility] ALBUMIN 2.0 gm/dL 3.4-5.0 [facility] ID Date Data Source [id number] 05/04/2020 07:01:00 AM EST [facility] Name Value Range Interpretation Code Description Data Marcela e(s) Supporting Document(s) WHITE BLOOD COUNT 13.1 K/mm3 4.0-10.0 [facility] RED BLOOD COUNT 3.09 M/mm3 4.50-6.00 L [facility] HEMOGLOBIN 9.0 gm/dL 14.0-18.0 L [facility] HEMATOCRIT 27.4 % 42.0-54.0 L [facility] MEAN CELL VOLUME 88.7 fl 80-96 [facility] MEAN CORPUSCULAR HEMOGLOBIN 29.1 pg 27.0-31.0 [facility] MEAN CORPUSCULAR HGB CONC 32.8 g/dl 32.0-36.0 [facility] RED CELL DISTRIBUTION WIDTH 15.2 % 10.0-14.5 H [facility] PLATELET COUNT 331 K/mm3 172-450 [facility] MEAN PLATELET VOLUME 10.0 fl 9.0-13.0 [facility] GRAN % 48.5 % 50-80.0 L [facility] IG% 0.7 % 0.0-0.2 H [facility] LYMPH % 15.8 % 25.0-50.0 L [facility] MONO % 6.1 % 2.0-10.0 [facility] EOS % 28.1 % 0-5.0 *H [facility] BASO % 0.8 % 0.0-2.0 [facility] GRAN # 6.4 K/mm3 2.0-8.00 [facility] IG# 0.1 K/mm3 0.0-0.2 [facility] LYMPH # 2.1 K/mm3 1.0-5.0 [facility] MONO # 0.8 K/mm3 0.10-1.20 [facility] EOS # 3.7 K/mm3 0.0-0.5 *H [facility] BASO # 0.1 K/mm3 0.0-0.2 [facility] ID Date Data Source [id number] 05/02/2020 04:16:00 PM [facility] HistoryChief Complaint/Admit ReasonAmbu latory dysfunction, status post left BKAHistory of Presenting IllnessThe patient is a 74-year-old white male who had been here for a course of subacute rehabilitation after a recent left BKA. The patient had an infected left foot with osteomyelitis, that was complicated by lower extremity arterial ischemia. He underwent the left BKA on 03/26/20. The patient came to our facility on 04/15/20. On 04/28/20 he started to have loose watery stools. He developed a fever and his stool was tested and came back positive for C. difficile. The patient was placed on isolation and oral vancomycin was initiated. However the patient had a significant white count, fever, acute kidney injury with dehydration. IV Flagyl was also ordered and the patient was changed to inpatient. The patient has responded nicely to his IV fluids and they have been discontinued. His acute kidney injury/dehydration/prerenal azotemia has improved. His IV Flagyl was discontinued and he has just been continued on his oral vancomycin. His diarrhea is much improved and he is feeling better. His white blood cell count has come down from 28.8, to 11.8. The left shift has also resolved. The patient's vital signs have been stable and he has been afebrile. He is tolerating his diet. The patient is nonambulatory, but this is due to his recent left BKA. He has a slide board transfer, from bed to wheelchair. We are awaiting his left lower extremity prosthesis. With the patient clinically improved, he is being transferred back to swing bed status to continue his course of rehabilitation. REVIEW OF SYSTEMS: The patient denies fever or chills. He denies nausea or vomiting. He still is having on average 5-6 loose/watery stools a day. There's been no melena, blood or mucus. His appetite is good. He does have chronic headaches and they have not changed. They're intermittent. He denies feeling lightheaded or dizzy. Hedenies any change in vision, speech or swallowing. He denies any new ENT complaints. The patient denies shortness of breath, wheezing or cough. He denies chest pain or palpitations. He denies abdominal pain and has not had heartburn, indigestion, dysphagia or lori nophagia. He is voiding without difficulty and denies any complaints. The patient does have a right lower extremity prosthesis and is awaiting his new left lower extremity prosthesis. As noted above he is currently nonambulatory, until he has to prosthesis. He ruchi slide board transfer from bed to chair. Patient will have occasional pain in his left stump, but it is tolerable. He is very occasional phantom limb pain inboth lower extremities and it is also tolerable. He denies any specific new musculoskeletal complaints. The patient does have occasional numbness and tingling in his fingers. He denies any other weakness, numbness or tingling. His fungal infection in the skin folds is much improved with current treatment. He denies any new skin problems. He does have good and bad days and emotionallyis feeling in between today. 10 point review of systems is otherwise negative except for what is documented above. PAST MEDICAL HISTORY: C. difficile colitisDiarrhea, secondary to the C. di fficileDehydrationAcute kidney injuryChronic kidney disease stage II to IIIDiabetes mellitus type 2 with hyperglycemia, status post DKA as well as diabeticneuropathyPeripheral arterial diseaseCandidiasi sGERDGlaucomaHyperlipidemiaHypertensionIron deficiency anemiaSepsisHeart murmur as a childVitamin D deficiency PAST SURGICAL HISTORY: AppendectomyRight BKA, years agoLeft BKA 03/26/20 FAMILY HISTORY: Mother from cancer at age 64, type unknownFather at a young age, but unfortunately he does not know any history aboutit.He has 3 half-sisters, ages 59, 62 and 66. They are all alive and well. 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 He did drink years ago, but just occasionallyHe is a nonsmoker and does not use drugs ADVANCED DIRECTIVES: The patient does not have a healthcare proxyHe is a DNR/DNI IMMUNIZATIONS: Flu and pneumonia vaccines are up-to-date ALLERGIES: Penicillin (hives) HOME MEDICATIONS: Amlodipine 5 mg by mouth dailyBrimonidine 1 drop both eyes twice a dayCalcium with vitamin D 600/200 one tablet by mouth twice a dayVitamin D 50,000 units every 2 weeksNexium 40 mg by mouth dailyZetia 10 mg by mouth dailyFerrous sulfate 325 mg by mouth 3 times a dayLevemir 60 units subcutaneous twice a daySliding scale insulin (Humalog)Latanoprost 0.005% one drop both eyes daily at bedtimeLisinopril 20 mg by mouth dailyMagnesium chloride 64 mg by mouth twice a dayMetformin 1000 mg by mouth twice a dayMultivitamin with iron 1 by mouth dailyPioglitazone 30 mg by mouth dailyAcetaminophen 1000 mg every 6 hours when necessary CURRENT INPATIENT MEDICATIONS: Lantus 20 units subcutaneous daily at bedtimeAspirin 81 mg enteric-coated by mouth dailyPlavix 75 mg by mouth dailyOmeprazole 40 mg by mouth dailyProbiotic 1 capsule by mouth every afternoonModerate sliding scale insulin coverage before meals and at bedtimeNystatin powder topically twice a dayLatanoprost 0.005% both eyes one drop at bedtimeBrimonidine 0.2% both eyes one drop twice a dayVancomycin 125 mg by mouth 4 times a day (day 3 of 10)Tylenol 650 mg every 6 hours as needed Past Medical/Surgical HistoryPast Medical/Surgical HistoryMedical Problems Adjustment reaction BELLA (acute kidney injury) Ambulatory dysfunction Candidiasis of skin Chronic kidney disease Clostridium difficile colitis COPD (chronic obstructive pulmonary disease) Dehydration Depression Diabetes mellitus Diabetes mellitus type 2 with complications Diarrhea of infectious origin DKA (diabetic ketoacidosis) Elevated C-reactive protein (CRP) Elevated WBC count GERD (gastroesophageal reflux disease) Glaucoma History of left below knee amputation Hyperchloremia Hyperlipidemia Hypertension Hyponatremia Iron deficiency Metabolic acidosis Normocytic anemia Osteomyelitis of left foot PAD (peripheral artery disease) Prerenal azotemia Sepsis Severe protein-calorie malnutrition Vitamin D deficiencySurgical Problems History of appendectomy History of right below knee amputation AllergiesCoded Allergies:Penicillins (Intermediate, Hives 05/02/20) ExamVital SignsVital Signs 05/02 1541 Temp 97.2 Pulse 78 Resp 20 B/P 119/62 B/P Mean Pulse Ox 98 O2 Delivery O2 Flow Rate FiO2 Physical ExaminationOther:PHYSICAL EXAMINATION: General: Well- developed, well-nourished white male who is alert, oriented x3, cooperative and in no apparent distress.HEENT: Normocephalic, atraumatic, pupils reactive, sclerae anicteric, oral mucosa is pink and moist, the patient has just 2 lower teeth. Oropharynx is otherwise unremarkable.Neck: FROM, supple, nontender, no masses or lymphadenopathy, carotids 2+ withoutbruits, trachea in the midline, no thyromegaly, there was no JVD or HJR.Lungs: Clear to auscultation bilaterally. There was no accessory muscle movement or evidence of respiratory distress.Chest wall: Nontender and no crepitationHeart: Regular, rate and rhythm. Normal S1-S2. No murmur was noted.Abdomen: Soft, nontender, no masses or organomegaly, bowel sounds are positive in all 4 quadrants.Extremities: The patient has bilateral BKA's. He does move all 4 extremities atthe bedside. th ere've been no issues with either of his stumps.Neurologic: Again the patient was alert and oriented X3. He did move all 4 extremities and the bedside. Motor and sensory does appear grossly intact.Back: There was no vertebral or CVA tenderness. I do not appreciate any paravertebral muscle spasm.Skin: Warm and dry, normal colorPsychiatric: Mood and affect were appropriate.Lymphatic: No palpable lymphadenopathy ADMISSION PLAN: The patient is being admitted from acute status to swing bed status, to continuehis course of rehabilitation.Vital signs every 4 hours 6 and then every shiftThe patient is currently not ambulatory. He is slight board transfers from bed to wheelchair. Further activity will depend on physical therapy, as we are awaiting his left lower extremity prosthesis.Diet: Heart healthy, consistent carbohydrateWe will resume patient's multivitamin.AM lab work to 05/04/20: CBC, CMP, CRP and magnesium level.Patient will have available as needed Tylenol MaaloxContinue probioticMaintain DVT prophylaxis as patient is currently nonambulatory Assessment/PlanProblem List 1. Ambulatory dysfunction A&PThe patient is currently nonambulatory. He is a sliding board with transfers from bed to wheelchair. The patient will work with staff and PT. Further activity per PT. We are waiting the patient's left lower extremity prosthesis. He already has his right lower extremity prosthesis. 2. History of left below knee amputation A&PAgain, as noted above, we are awaiting patient's left lower extremity prosthesis 3. Clostridium difficile colitis A&PThe patient is clinically much improved. Complete 10 day course of oral vancomycin. Continue to monitor response to treatment as well. Maintaining contact precautions for now. 4. Diarrhea of infectious origin A&PThis is improving. Continue to monitor response to treatment. 5. Dehydration A&PThis has been corrected 6. Prerenal azotemia A&PThis has been corrected 7. BELLA (acute kidney injury) A&PThis has resolved 8. Chronic kidney disease A&PThis is improved and patient is now stage II with a GFR of 63 9. Elevated WBC count A&PThis has improved and the patient has no further left shift. Continue to trend the CBC 10. Elevated C- reactive protein (CRP) A&PThis is most likely elevated due to patient's C. difficile colitis. Trend levelto see that it is improving/resolving with t reatment 11. Normocytic anemia A&PTrend H&H. Resume patient's iron supplement 12. Hyperchloremia A&PTrend chloride level 13. Diabetes mellitus type 2 with complications A&PConsistent carbohydrate diet. Check blood sugars before meals and at bedtime and provide sliding scale coverage, if indicated. Continue Lantus. 14. Severe protein-calorie malnutrition A&PEncourage by mouth intake. Dietitian evaluation 15. PAD (peripheral artery disease) A&PContinue aspirin, Plavix as well as management of patient's diabetes, hypertension and hyperlipidemia. 16. Hypertension A&PThe patient's blood pressure has been at times slightly elevated and he needs tohave better control view of his diabetes, PAD and recent BKA. With the patient's acute kidney injury and renal function improved, I will start at a lower dose of lisinopril and monitor response (not only for blood pressure management, but reinitiating an ANDRES inhibitor in a diabetic). At this time, I will not be resuming amlodipine. 17. Hyperlipidemia A&PPer the old records as well as pharmacy, the patient was only on Zetia and not astatin. He has not been on anything for his lipids and well over a month and a half. I am therefore going to check a lipid profile and then initiate treatment, after results are available 18. GERD (gastroesophageal reflux disease) A&PMonitor for exacerbating symptoms. Continue omeprazole 19. Glaucoma A&PContinue brimonidine and latanoprost 20. Adjustment reaction A&PA behavioral health consult has already been requested and we are awaiting theirevaluation and recommendations 21. Vitamin D deficiency A&PThe patient will be started on daily vitamin D and he may resume his high dose vitamin D every 2 weeks, post discharge. 22. Candidiasis of skin A&PWe will continue topical treatment with nystatin powder and continue to monitor response DIET Consistent Carbohydrate (heart healthy)Activity the patient is currently nonambulatory and we are awaiting his new prosthesis for his left lower extremity. He is currently slide board transfers from bed to wheelchair. Further activity per PT.Patient Condition StableResuscitation Status DNR & DNIPlan discussed with patientCase discussed with nursing staffCopies toFamily Provider: Advance Care Planning* 5 minutes of [id number] time spent for Advance Care Planning in explanation/discussion of Advance Directives.* Following people are present during the meeting: Myself and the patient.* Decisions reached: The patient does not have a healthcare proxy or a MOLST form. However, he will remain a DNR/DNI. VTE ProphylaxisVTE Prophylaxis: Resume DVT prophylaxis with heparin. Name Value Range Interpretation Code Description Data Marcela rce(s) Supporting Document(s) ID Date Data Source [id number] 05/02/2020 03:28:00 PM EST [facility] Summary of HospitalizationReason for Ad missionC. difficile colitis, diarrhea, dehydration, feverHospital CourseThe patient is a 74-year-old white male who had been here for a course of subacute rehabilitation after a recent left BKA. The patient had an infected left foot with osteomyelitis, that was complicated by lower extremity arterial ischemia. He underwent the left BKA on 03/26/20. The patient came to our facility on 04/15/20. On 04/28/20 he started to have loose watery stools. He developed a fever and his stool was tested and came back positive for C. difficile. The patient was placed on isolation and oral vancomycin was initiated. However the patient had a significant white count, fever, acute kidney injury with dehydration. IV Flagyl was also ordered and the patient was changed to inpatient. The patient has responded nicely to his IV fluids and they have been discontinued. His acute kidney injury/dehydration/prerenal azotemia has improved. His IV Flagyl was discontinued and he has just been continued on his oral vancomycin. His diarrhea is much improved and he is feeling better. His white blood cell count has come down from 28.8, to 11.8. The left shift has also resolved. The patient's vital signs have been stable and he has been afebrile. He is tolerating his diet. The patient is nonambulatory, but this is due to his recent left BKA. He has a slide board transfer, from bed to wheelchair. We are awaiting his left lower extremity prosthesis. With the patient clinically improved, he is being transferred back to swing bed status to continue his course of rehabilitation. REVIEW OF SYSTEMS: The patient denies fever or chills. He denies nausea or vomiting. He still is having on average 5-6 loose/watery stools a day. There's been no melena, blood or mucus. His appetite is good. He does have chronic headaches and they have not changed. They're intermittent. He denies feeling lightheaded or dizzy. Hedenies any change in vision, speech or swallowing. He denies any new ENT complaints. The patient denies shortness of breath, wheezing or cough. He denies chest pain or palpitations. He denies abdominal pain and has not had heartburn, indigestion, dysphagia or odynophagia. He is voiding without difficulty and denies any complaints. The patient does have a right lower extremity prosthesis and is awaiting his new left lower extremity prosthesis. As noted above he is currently nonambulatory, until he has to prosthesis. He ruchi slide board transfer from bed to chair. Patient will have occasional pain in his left stump, but it is tolerable. He is very occasional phantom limb pain inboth lower extremities and it is also tolerable. He denies any specific new musculoskeletal complaints. The patient does have occasional numbness and tingling in his fingers. He denies any other weakness, numbness or tingling. His fungal infection in the skin folds is much improved with current treatment. He denies any new skin problems. He does have good and bad days and emotionallyis feeling in between today. 10 point review of systems is otherwise negative except for what is documented above. PAST MEDICAL HISTORY: C. difficile colitisDiarrhea, secondary to the C. difficileDehydrationAcute kidney injuryChronic kidney disease stage II to IIIDiabetes mellitus type 2 with hyperglycemia, status post DKA as well as diabeticneuropathyPeripheral arterial diseaseCandidi asisGERDGlaucomaHyperlipidemiaHypertensionIron deficiency anemiaSepsisHeart murmur as a childVitamin D deficiency PAST SURGICAL HISTORY: AppendectomyRight BKA, years agoLeft BKA 03/26/20 FAMILY HISTORY: Mother from cancer at age 64, type unknownFather at a young age, but unfortunately he does not know any history aboutit.He has 3 half-sisters, ages 59, 62 and 66. They are all alive and well. 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 He did drink years ago, but just occasionallyHe is a nonsmoker and does not use drugs ADVANCED DIRECTIVES: The patient does not have a healthcare proxyHe is a DNR/DNI IMMUNIZATIONS: Flu and pneumonia vaccines are up-to-date ALLERGIES: Penicillin (hives) HOME MEDICATIONS: Amlodipine 5 mg by mouth dailyBrimonidine 1 drop both eyes twice a dayCalcium with vitamin D 600/200 one tablet by mouth twice a dayVitamin D 50,000 units every 2 weeksNexium 40 mg by mouth dailyZetia 10 mg by mouth dailyFerrous sulfate 325 mg by mouth 3 times a dayLevemir 60 units subcutaneous twice a daySliding scale insulin (Humalog)Latanoprost 0.005% one drop both eyes daily at bedtimeLisinopril 20 mg by mouth dailyMagnesium chloride 64 mg by mouth twice a dayMetformin 1000 mg by mouth twice a dayMultivitamin with iron 1 by mouth dailyPioglitazone 30 mg by mouth dailyAcetaminophen 1000 mg every 6 hours when necessary CURRENT INPATIENT MEDICATIONS: Lantus 20 units subcutaneous daily at bedtimeAspirin 81 mg enteric-coated by mouth dailyPlavix 75 mg by mouth dailyOmeprazole 40 mg by mouth dailyProbiotic 1 capsule by mouth every afternoonModerate sliding scale insulin coverage before meals and at bedtimeNystatin powder topically twice a dayLatanoprost 0.005% both eyes one drop at bedtimeBrimonidine 0.2% both eyes one drop twice a dayVancomycin 125 mg by mouth 4 times a day ()Tylenol 650 mg every 6 hours as needed Procedures & Relevant StudiesStudiesLaboratory Tests All Test Result Date Time Chemistry Sodium (136 - 145 mmol/L) 142 05/02 0555 Potassium (3.5 - 5.1 mmol/L) 4.0 05/02 0555 Chloride (98 - 107 mmol/L) 110 H 05/02 0555 Carbon Dioxide (21 - 32 mmol/L) 23 05/02 0555 Anion Gap (5 - 12 mmol/L) 9.0 05/02 0555 BUN (7 - 18 mg/dL) 16 05/02 05 Creatinine (0.7 - 1.3 mg/dL) 1.14 05/02 0555 Estimated GFR (MDRD) (mL/min) 63 05/02 0555 Glucose (74 - 106 mg/dL) 177 H 05/02 0555 Calcium (8.5 - 10.1 mg/dL) 8.3 L 05/02 0555 Total Bilirubin (0.2 - 1.0 mg/dL) 0.3 04/30 622 AST (15 - 37 U/L) 18 04/30 622 ALT (12 - 78 U/L) 19 04/30 622 Alkaline Phosphatase (46 - 116 U/L) 69 04/30 06 C-Reactive Protein (0.0 - 3.0 mg/L) 125.8 H 04/30 622 Total Protein (6.4 - 8.2 g/dl) 5.7 L 04/30 622 Albumin (3.4 - 5.0 gm/dL) 2.5 L 02/ 0623 Hematology WBC (4.0 - 10.0 K/mm3) 11.8 H 02/ 0555 RBC (4.50 - 6.00 M/mm3) 3.02 L 02/ 0555 Hgb (14.0 - 18.0 gm/dL) 8.8 L 02/ 0555 Hct (42.0 - 54.0 %) 26.1 L 02/ 0555 MCV (80 - 96 fl) 86.4 02/ 0555 MCH (27.0 - 31.0 pg) 29.1 02/ 0555 MCHC Differential (32.0 - 36.0 g/dl) 33.7 02/ 0555 RDW (10.0 - 14.5 %) 15.0 H 02/ 0555 Plt Count (172 - 450 K/mm3) 308 02/ 0555 MPV (9.0 - 13.0 fl) 10.4 02/ 0623 Gran % (Auto) (50 - 80.0 %) 70.0 02/04 0623 Gran # (2.0 - 8.00 K/mm3) 13.4 H 02/04 0623 Immature Gran % (0.0 - 0.2 %) 0.2 02/04 0623 Lymphocytes % (25.0 - 50.0 %) 9.7 L 02/04 0623 Monocytes % (2.0 - 10.0 %) 3.4 02/04 0623 Eosinophils % (0 - 5.0 %) 16.4 *H 02/ 0623 Basophils % (0.0 - 2.0 %) 0.3 02/04 0623 Immature Gran # (0.0 - 0.2 K/mm3) 0.0 02/04 0623 Lymphocytes # (1.0 - 5.0 K/mm3) 1.9 02/ 0623 Monocytes # (0.10 - 1.20 K/mm3) 0.7 02/04 0623 Eosinophils # (0.0 - 0.5 K/mm3) 3.1 *H 02/ 0623 Basophils # (0.0 - 0.2 K/mm3) 0.1 02/ 0623 Diagnoses (Current Visit)Problem List 1. Sepsis 2. BELLA (acute kidney injury) 3. Dehydration 4. Prerenal azotemia 5. Chronic kidney disease 6. Clostridium difficile colitis 7. Elevated WBC count 8. Elevated C-reactive protein (CRP) 9. Normocytic anemia 10. Hyponatremia 11. Hyperchloremia 12. Metabolic acidosis 13. Diabetes mellitus type 2 with complications 14. Severe protein- calorie malnutrition 15. Ambulatory dysfunction 16. History of left below knee amputation 17. PAD (peripheral artery disease) 18. Hypertension 19. Hyperlipidemia 20. GERD (gastroesophageal reflux disease) 21. Glaucoma 22. Candidiasis of skin 23. Adjustment reaction Patient's Discharge ConditionVital SignsVital Signs Date Time Temp Pulse Resp B/P B/P Pulse O2 O2 Flow FiO2 Mean Ox Delivery Rate 05/02 1117 98.2 80 18 123/66 97 05/02 0700 97.0 80 18 120/69 96 05/02 0308 98.0 88 20 128/56 98 / 2315 97.6 87 16 133/66 97 / 2000 97.9 88 16 129/66 98 Patient's Discharge ConditionDischarge date 05/02/20Discharge condition stableDischarge DispositionThe patient is being discharged from the acute service and admitted back to swing bed status to resume his course of subacute rehabilitation Physical ExaminationOther:PHYSICAL EXAMINATION: General: Well-developed, well- nourished white male who is alert, oriented x3, cooperative and in no apparent distress.HEENT: Normocephalic, atraumatic, pupils reactive, sclerae anicteric, oral mucosa is pink and moist, the patient has just 2 lower teeth. Oropharynx is otherwise unremarkable.Neck: FROM, supple, nontender, no masses or lymphaden opathy, carotids 2+ withoutbruits, trachea in the midline, no thyromegaly, there was no JVD or HJR.Lungs: Clear to auscultation bilaterally. There was no accessory muscle movement or evidence of respiratory distress.Chest wall: Nontender and no crepitationHeart: Regular, rate and rhythm. Normal S1-S2. No murmur was noted.Abdomen: Soft, nontender, no masses or organomegaly, bowel sounds are positive in all 4 quadrants.Extremities: The patient has bilateral BKA's. He does move all 4 extremities atthe bedside. there've been no issues with either of his stumps.Neurologic: Again the patient was alert and oriented X3. He did move all 4 extremities and the bedside. Motor and sensory does appear grossly intact.Back: There was no vertebral or CVA tenderness. I do not appreciate any paravertebral muscle spasm.Skin: Warm and dry, normal colorPsychiatric: Mood and affect were appropriate.Lymphatic: No palpable lymphadenopathy Patient/Family InstructionsAdditional NotesThe patient is being discharged from acute status and admitted back to swing bed, to resume his course of subacute rehabilitation. Please see full H&P as well as orders in his swing bed admission for further details.Time spent by provider to complete discharge > 30 minutesCopies toFamily Provider: Advance Care Planning* 3 minutes of [id number] time spent for Advance Care Planning in explanation/discussion of Advance Directives.* Following people are present during the meeting: The patient and myself.* Decisions reached: He will remain a DNR/DNI. Name Value Range Interpretation Code Description Data Marcela rce(s) Supporting Document(s) ID Date Data Source [id number] 05/02/2020 06:17:00 AM EST [facility] Name Value Range Interpretation Code Description Data [facility] rce(s) Supporting Document(s) GLUCOSE 177 mg/dL 74-106 H [facility] BLOOD UREA NITROGEN 16 mg/dL 7-18 [facility] ital CREATININE 1.14 mg/dL 0.7-1.3 [facility] SODIUM 142 mmol/L 136-145 [facility] POTASSIUM 4.0 mmol/L 3.5-5.1 [facility] CHLORIDE 110 mmol/L 98-107 H [facility] CO2 23 mmol/L 21-32 [facility] CALCIUM 8.3 mg/dL 8.5-10.1 L [facility] ANION GAP 9.0 mmol/L 5-12 [facility] GLOMERULAR FILTRATION RATE 63 mL/min [facility] GFR IS CALCULATED IN mL/min/1.73m2 ROBERT L FUNCTION: >90MILDLY DECREASED: 60-89MILDY TO MODERATELY DECREASED: 45-59 MODERATELY TO SEVERELY DECREASED: 30-44SEVERELY DECREASED: 15-29RENAL FAILURE: <15 ID Date Data Source [id number] 05/02/2020 06:03:00 AM EST [facility] Name Value Range Interpretation Code Description Data Marcela rce(s) Supporting Document(s) WHITE BLOOD COUNT 11.8 K/mm3 4.0-10.0 H [facility] RED BLOOD COUNT 3.02 M/mm3 4.50-6.00 L [facility] HEMOGLOBIN 8.8 gm/dL 14.0-18.0 [facility] HEMATOCRIT 26.1 % 42.0-54.0 L [facility] MEAN CELL VOLUME 86.4 fl 80-96 [facility] MEAN CORPUSCULAR HEMOGLOBIN 29.1 pg 27.0-31.0 [facility] MEAN CORPUSCULAR HGB CONC 33.7 g/dl 32.0-36.0 [facility] RED CELL DISTRIBUTION WIDTH 15.0 % 10.0-14.5 H [facility] PLATELET COUNT 308 K/mm3 172-450 [facility] ID Date Data Source [id number] 05/01/2020 09:39:00 AM [facility] Progress Note GeneralEncounter:Chart re viewed. Patient interviewed and examined. Labs, medications and orders viewed by me. SubjectiveGeneral Condition:74 yo male seen in room, in wheelchair participating with PT.Denies complaints and feels his diarrhea has almost completely resolved.No overnight or nursing issues reported.Denies: f/c/r, n/v/d, CP, productive sputum, cough, hemoptysis, SOB/GOEL, abd/flank pain.Tolerating PO intakeVoiding fine. ObjectiveNote:Temp; 98.2, Pulse; 87, Resp: 18, B/P: 118/59 SaO2: 98, O2 Status: RA EENT PERRL/EOMI, normal ENT inspectionNeck normal inspection, suppleResp iratory lungs clear, no respiratory distressCardiovascular regular rate/rhythm, no JVDPeripheral Pulses2+ carotid (R), 2+ carotid (L), 2+ femoral (R), 2+ femoral (L)Back normal inspection, no CVA tendernessExtremities bilateral BKA, no issues with stumpsNeurologic/Psychiatric alert, 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, normal mood/affect, oriented x 3Skin normal color, warm/dryLymphatic no adenopathyOther:Laboratory Tests 05/01 0840 Chemistry Sodium (136 - 145 mmol/L) 139 Potassium (3.5 - 5.1 mmol/L) 4.3 Chloride (98 - 107 mmol/L) 109 H Carbon Dioxide (21 - 32 mmol/L) 20 L Anion Gap (5 - 12 mmol/L) 10.0 BUN (7 - 18 mg/dL) 22 H Creatinine (0.7 - 1.3 mg/dL) 1.26 Estimated GFR (MDRD) (mL/min) 56 Glucose (74 - 106 mg/dL) 372 H Calcium (8.5 - 10.1 mg/dL) 8.1 L Hematology WBC (4.0 - 10.0 K/mm3) 9.6 RBC (4.50 - 6.00 M/mm3) 3.13 L Hgb (14.0 - 18.0 gm/dL) 9.2 L Hct (42.0 - 54.0 %) 27.7 L MCV (80 - 96 fl) 88.5 MCH (27.0 - 31.0 pg) 29.4 MCHC Differential (32.0 - 36.0 g /dl) 33.2 RDW (10.0 - 14.5 %) 15.0 H Plt Count (172 - 450 K/mm3) 267 Current MedicationsAcetaminophen 650 MG Q6H PRN PO FEVER GREATER THAN 101 Acetaminophen 650 MG Q6H PRN PO PAIN MILD (-06/03) Aspirin 81 MG DAILY PO Brimonidine Tartrate 1 DROP BID OU Clopidogrel Bisulfate 75 MG DAILY PO Insulin Glargine 10 U HS SC Insulin Human Regular MODERATE DOSE - Sliding Scale < 60 MG/DL * Follow Hypoglycemic Protocol 61 - 150 No COVERAGE 151 - 180 2 UNITS 181 - 240 4 UNITS 241 - 300 6 UNITS 301 - 350 8 UNITS 351 - 400 10 UNITS > 400 Serum Glucose, Notify Provider ACHS SC Latanoprost 1 DROP HS OU Nutritional Formula (Lactose Free) 1 CAP DAILY@1400 PO Nystatin 1 DOSE BID TP Omeprazole 40 MG DAILY PO Sodium Chloride 5 ML QID PRN IV Flush Vancomycin HCl 125 MG QID PO Vital Signs-Last Result Date Time Pulse Ox 98 02/ 0700 B/P 118/59 02/ 0700 Temp 98.2 02/ 0700 Pulse 87 02/ 0700 Resp 18 05/01 0700 Assessment/PlanAllergiesCoded Marcelino rgies:Penicillins (Intermediate, Hives 04/15/20) Problem List 1. Sepsis A&PPatient admitted acute from SWING status on 04/29/2020WBC: 25.9 (day before was 28.8), RRmax 20, HR: 99 in combination with positive C.diff is equivalent to Sepsis and had noted BELLA with increas in Sr Cr.He has been maintained on IV fluids and IV metronidazole along with po vanco. The lowest his MAP recorded was 63. Otherwise he has maintained good BP readings and good UO indicating good tissue perfusions.I agree that it was best to admit him for a few days to acute status and closer nursing and provider follow up.Today, he is progressing nicely. 2. BELLA (acute kidney injury) A&PSr Cr baseline is around 1.2 Today's labs are at baseline.Will d/c IV fluids and encouarge oral intake. 3. Clostridium difficile colitis A&PToday wbc has normalizedCurrently good BP readings and he is on RA and no clinical s/s of sepsis.Will d/c IV Metronidazole and contine po vanco (day 05/06).Avoid nephrotoxins. 4. Diabetes mellitus A&PC/w consistent carb dietFSBS ac/hs with SSI and Lantus coverag (may need further adjustments) 5. Osteomyelitis of left foot A&Ps/p BKADoing well otherwise and has been evaluated for a new prosthetic (just waiting for it to be delivered)c/w nutritional supplementationC/w PT and appreciate input from case management regarding disposition 6. Hypertension A&Pstablec/t monitor 7. Glaucoma A&Pc/w brimonidine and latanoprost 8. PAD (peripheral artery disease) A&Pstablec/w ASA and Plavix 9. GERD (gastroesophageal reflux disease) A&Pc/w omeprazole 10. COPD (chronic obstructive pulmonary disease) A&P?COPD by history, but not on inhalers.Lungs clear, not requiring oxygen supplementation. 11. Hyperlipidemia A&Pnot currently on statin therapyshould f/u OP with PCP 12. Candidiasis of skin A&Pc/w nystatin topical 13. Iron deficiency A&Pchronic anemiaH/H stable Negative stool occult blood sample on 04/28/2020no c/o of rectal bleedingShould be followed up OP with colonoscopy 14. Depression A&PPatient had some anger issues this morning with being frustrated with his prolonged stay and set back from the C. Diff/sepsis. Will request consult. Disposition PlanLets monitor him on acute status one more day, repeat labs in morning and then anticpate making him a SWING patient. He will still need some further PT and training with his new prosthetic before he will be ready for d/c home.VTE ProphylaxisVTE Prophylaxis: bilateral bka, active with PT Name Value Range Interpretation Code Description [facility]) ID Date Data Source [id number] 05/01/2020 09:20:00 AM [facility] Name Value Range Interpretation Code Description [facility] Supporting Document(s) GLUCOSE 372 mg/dL 74-106 H [facility] BLOOD UREA NITROGEN 22 mg/dL 7-18 H [facility] ital CREATININE 1.26 mg/dL 0.7-1.3 [facility] SODIUM 139 mmol/L 136-145 [facility] POTASSIUM 4.3 mmol/L 3.5-5.1 [facility] CHLORIDE 109 mmol/L 98-107 H [facility] CO2 20 mmol/L 21-32 L [facility] CALCIUM 8.1 mg/dL 8.5-10.1 L [facility] ANION GAP 10.0 mmol/L 5-12 [facility] GLOMERULAR FILTRATION RATE 56 mL/min [facility] GFR IS CALCULATED IN mL/min/1.73m2 ROBERT L FUNCTION: >90MILDLY DECREASED: 60-89MILDY TO MODERATELY DECREASED: 45-59 MODERATELY TO SEVERELY DECREASED: 30-44SEVERELY DECREASED: 15-29RENAL FAILURE: <15 ID Date Data Source [id number] 05/01/2020 09:13:00 AM [facility] Name Value Range Interpretation Code Description Data [facility](s) Supporting Document(s) WHITE BLOOD COUNT 9.6 K/mm3 4.0-10.0 [facility] al RED BLOOD COUNT 3.13 M/mm3 4.50-6.00 L [facility] HEMOGLOBIN 9.2 gm/dL 14.0-18.0 L [facility] HEMATOCRIT 27.7 % 42.0-54.0 L [facility] MEAN CELL VOLUME 88.5 fl 80-96 [facility] MEAN CORPUSCULAR HEMOGLOBIN 29.4 pg 27.0-31.0 [facility] MEAN CORPUSCULAR HGB CONC 33.2 g/dl 32.0-36.0 [facility] RED CELL DISTRIBUTION WIDTH 15.0 % 10.0-14.5 H [facility] PLATELET COUNT 267 K/mm3 172-450 [facility] ID Date Data Source [id number] 04/30/2020 12:37:00 PM [facility] dakota See AddendumProgress Note GeneralEn counter:Chart reviewed. Patient interviewed and examined. Labs, medications and orders viewed by me. SubjectiveGeneral Condition:74 yo male seen bedside no specific complaints.No overnight or nursing issues reported.Feels his diarrhea is improved.Denies: f/c/r, n/v/d, CP, productive sputum, hemoptysis, GOEL/SOB, PND, abd/flankpain.Tolerating PO intakeVoiding fine. ObjectiveNote:Temp; 96.9, Pulse; 69, Resp: 18, B/P: 101/51 SaO2: 94, O2 Status: RA EENT PERRL/EOMI, normal ENT inspectionNeck normal inspection, non-tender, suppleRespiratory chest non- tender, lungs clearCardiovascular regular rate/rhythm, no JVDPeripheral Pulses2+ carotid (R), 2+ carotid (L), 2+ femoral (R), 2+ femoral (L), 2+ dorsalis pedis (R), 2+ dorsalis pedis (L)Gastrointestinal normal bowel sounds, non tender, soft, no organomegalyBack normal inspection, no CVA tendernessExtremities no calf tenderness, no pedal edemaNeurologic/Psychiatric alert, 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, normal mood/affect, oriented x 3Skin normal color, warm/dryLymphatic no adenopathyOther:Laboratory Tests 04/30 06 Chemistry Sodium (136 - 145 mmol/L) 138 Potassium (3.5 - 5.1 mmol/L) 3.8 Chloride (98 - 107 mmol/L) 107 Carbon Dioxide (21 - 32 mmol/L) 18 L Anion Gap (5 - 12 mmol/L) 13.0 H BUN (7 - 18 mg/dL) 34 H Creatinine (0.7 - 1.3 mg/dL) 1.48 H Estimated GFR (MDRD) (mL/min) 46 Glucose (74 - 106 mg/dL) 161 H Calcium (8.5 - 10.1 mg/dL) 7.7 L Total Bilirubin (0.2 - 1.0 mg/dL) 0.3 AST (15 - 37 U/L) 18 ALT (12 - 78 U/L) 19 Alkaline Phosphatase (46 - 116 U/L) 69 C-Reactive Prote in (0.0 - 3.0 mg/L) 125.8 H Total Protein (6.4 - 8.2 g/dl) 5.7 L Albumin (3.4 - 5.0 gm/dL) 2.5 L Hematology WBC (4.0 - 10.0 K/mm3) 19.1 H RBC (4.50 - 6.00 M/mm3) 3.34 L Hgb (14.0 - 18.0 gm/dL) 9.8 L Hct (42.0 - 54.0 %) 29.6 L MCV (80 - 96 fl) 88.6 MCH (27.0 - 31.0 pg) 29.3 MCHC Differential (32.0 - 36.0 g/dl) 33.1 RDW (10.0 - 14.5 %) 14.8 H Plt Count (172 - 450 K/mm3) 279 MPV (9.0 - 13.0 fl) 10.4 Gran % (Auto) (50 - 80.0 %) 70.0 Gran # (2.0 - 8.00 K/mm3) 13.4 H Immature Gran % (0.0 - 0.2 %) 0.2 Lymphocytes % (25.0 - 50.0 %) 9.7 L Monocytes % (2.0 - 10.0 %) 3.4 Eosinophils % (0 - 5.0 %) 16.4 *H Basophils % (0.0 - 2.0 %) 0.3 Immature Gran # (0.0 - 0.2 K/mm3) 0.0 Lymphocytes # (1.0 - 5.0 K/mm3) 1.9 Monocytes # (0.10 - 1.20 K/mm3) 0.7 Eosinophils # (0.0 - 0.5 K/mm3) 3.1 *H Basophils # (0.0 - 0.2 K/mm3) 0.1 Current MedicationsAcetaminophen 650 MG Q6H PRN PO FEVER GREATER THAN 101 Acetaminophen 650 MG Q6H PRN PO PAIN MILD (1- 06/03) Aspirin 81 MG DAILY PO Brimonidine Tartrate 1 DROP BID OU Clopidogrel Bisulfate 75 MG DAILY PO Insulin Human Regular MODERATE DOSE - Sliding Scale < 60 MG/DL * Follow Hypoglycemic Protocol 61 - 150 No COVERAGE 151 - 180 2 UNITS 181 - 240 4 UNITS 241 - 300 6 UNITS 301 - 350 8 UNITS 351 - 400 10 UNITS > 400 Serum Glucose, Notify Provider ACHS SC Latanoprost 1 DROP HS OU Metronidazole 100 ML Q8H IVPB Nutritional Formula (Lactose Free) 1 CAP DAILY@1400 PO Nystatin 1 DOSE BID TP Omeprazole 40 MG DAILY PO Sodium Chloride 1,000 ML .Q6H40M IV Sodium Chloride 5 ML QID PRN IV Flush Vancomycin HCl 125 MG QID PO Assessment/PlanAllergiesCoded Allergies:Penicillins (Intermediate, Hives 04/15/20) Problem List 1. Clostridium difficile colitis A&Pimproved symptomsWBC improving No s/s of sepsisC/w Po Vanco and currently on Metronidazole 2. PAD (peripheral artery disease) A&Pstablec/w ASA and Plavix 3. Osteomyelitis of left foot A&Ps/p right BKA, now with bilateral BKAHas been eval for new prostheticc/w nutritional supplementationC/w PT and appreciate input from case management regarding disposition 4. Diabetes mellitus A&PConsistent carb dietFSBS ac/hs with SSI 5. Hypertension A&Pstablec/t monitor 6. Glaucoma A&Pc/w brimonidine and latanoprost 7. GERD (gastroesophageal reflux disease) A&Pc/w omeprazole 8. Candidiasis of skin A&Pc/w nystatin topically VTE ProphylaxisVTE Prophylaxis: bilateral bka, active with PT ADDENDUM: 04/30/20 1237 ADDENDUM: Juan Pablo Ponce DO on 04/30/20 at 1235 will restart Lantus at 10unitis sq qhs this evening since his fsbs are runnig more consistently above 250 Name Value Range Interpretation Code Description Data Marcela [facility](s) Supporting Document(s) ID Date Data Source [id number] 04/30/2020 07:27:00 AM EST [facility] Name Value Range Interpretation Code Description Data Marcela rce(s) Supporting Document(s) GLUCOSE 161 mg/dL 74-106 H [facility] BLOOD UREA NITROGEN 34 mg/dL 7-18 H [facility] ital CREATININE 1.48 mg/dL 0.7-1.3 H [facility] SODIUM 138 mmol/L 136-145 [facility] POTASSIUM 3.8 mmol/L 3.5-5.1 [facility] CHLORIDE 107 mmol/L 98-107 [facility] CO2 18 mmol/L 21-32 L [facility] CALCIUM 7.7 mg/dL 8.5-10.1 [facility] ANION GAP 13.0 mmol/L 5-12 H [facility] GLOMERULAR FILTRATION RATE 46 mL/min [facility] GFR IS CALCULATED IN mL/min/1.73m2 ROBERT L FUNCTION: >90MILDLY DECREASED: 60-89MILDY TO MODERATELY DECREASED: 45-59 MODERATELY TO SEVERELY DECREASED: 30-44SEVERELY DECREASED: 15-29RENAL FAILURE: <15 AST 18 U/L 15-37 [facility] ALT 19 U/L 12-78 [facility] ALKALINE PHOSPHATASE 69 U/L 46-116 [facility] pital TOTAL BILIRUBIN 0.3 mg/dL 0.2-1.0 [facility] TOTAL PROTEIN 5.7 g/dl 6.4-8.2 L [facility] ALBUMIN 2.5 gm/dL 3.4-5.0 [facility] ID Date Data Source [id number] 04/30/2020 07:27:00 AM [facility] Name Value Range Interpretation Code Description Data Marcela e(s) Supporting Document(s) C REACTIVE PROTEIN 125.8 mg/L 0.0-3.0 H [facility] ital ID Date Data Source [id number] 04/30/2020 07:03:00 AM [facility] Name Value Range Interpretation Code Description Data Marcela rce(s) Supporting Document(s) WHITE BLOOD COUNT 19.1 K/mm3 4.0-10.0 [facility] RED BLOOD COUNT 3.34 M/mm3 4.50-6.00 L [facility] HEMOGLOBIN 9.8 gm/dL 14.0-18.0 [facility] HEMATOCRIT 29.6 % 42.0-54.0 [facility] MEAN CELL VOLUME 88.6 fl 80-96 [facility] MEAN CORPUSCULAR HEMOGLOBIN 29.3 pg 27.0-31.0 [facility] MEAN CORPUSCULAR HGB CONC 33.1 g/dl 32.0-36.0 [facility] RED CELL DISTRIBUTION WIDTH 14.8 % 10.0-14.5 H [facility] PLATELET COUNT 279 K/mm3 172-450 [facility] MEAN PLATELET VOLUME 10.4 fl 9.0-13.0 [facility] pital GRAN % 70.0 % 50-80.0 [facility] IG% 0.2 % 0.0-0.2 [facility] LYMPH % 9.7 % 25.0-50.0 L [facility] MONO % 3.4 % 2.0-10.0 [facility] EOS % 16.4 % 0-5.0 *H [facility] BASO % 0.3 % 0.0-2.0 [facility] GRAN # 13.4 K/mm3 2.0-8.00 H [facility] IG# 0.0 K/mm3 0.0-0.2 [facility] LYMPH # 1.9 K/mm3 1.0-5.0 [facility] MONO # 0.7 K/mm3 0.10-1.20 [facility] EOS # 3.1 K/mm3 0.0-0.5 *H [facility] BASO # 0.1 K/mm3 0.0-0.2 [facility] ID Date Data Source [id number] 04/29/2020 07:35:00 AM [facility] l Name Value Range Interpretation Code Description Data Marcela rce(s) Supporting Document(s) C REACTIVE PROTEIN 121.8 mg/L 0.0-3.0 H [facility] ital ID Date Data Source [id number] 04/29/2020 07:23:00 AM [facility] l Name Value Range Interpretation Code Description Data Marcela rce(s) Supporting Document(s) GLUCOSE 292 mg/dL 74-106 H [facility] BLOOD UREA NITROGEN 48 mg/dL 7-18 H [facility] ital CREATININE 1.78 mg/dL 0.7-1.3 H [facility] SODIUM 131 mmol/L 136-145 L [facility] POTASSIUM 3.6 mmol/L 3.5-5.1 [facility] CHLORIDE 101 mmol/L 98-107 [facility] CO2 21 mmol/L 21-32 [facility] CALCIUM 7.3 mg/dL 8.5-10.1 L [facility] ANION GAP 9.0 mmol/L 5-12 [facility] GLOMERULAR FILTRATION RATE 38 mL/min [facility] GFR IS CALCULATED IN mL/min/1.73m2 ROBERT L FUNCTION: >90MILDLY DECREASED: 60-89MILDY TO MODERATELY DECREASED: 45-59 MODERATELY TO SEVERELY DECREASED: 30-44SEVERELY DECREASED: 15-29RENAL FAILURE: <15 AST 22 U/L 15-37 [facility] ALT 19 U/L 12-78 [facility] ALKALINE PHOSPHATASE 63 U/L 46-116 [facility] TOTAL BILIRUBIN 0.2 mg/dL 0.2-1.0 [facility] TOTAL PROTEIN 5.1 g/dl 6.4-8.2 L [facility] ALBUMIN 2.2 gm/dL 3.4-5.0 [facility] ID Date Data Source [id number] 04/29/2020 06:55:00 AM EST [facility] Name Value Range Interpretation Code Description Data Marcela rce(s) Supporting Document(s) WHITE BLOOD COUNT 25.9 K/mm3 4.0-10.0 *[facility] RED BLOOD COUNT 3.05 M/mm3 4.50-6.00 L [facility] HEMOGLOBIN 8.9 gm/dL 14.0-18.0 [facility] HEMATOCRIT 26.9 % 42.0-54.0 [facility] MEAN CELL VOLUME 88.2 fl 80-96 [facility] MEAN CORPUSCULAR HEMOGLOBIN 29.2 pg 27.0-31.0 [facility] MEAN CORPUSCULAR HGB CONC 33.1 g/dl 32.0-36.0 [facility] RED CELL DISTRIBUTION WIDTH 14.6 % 10.0-14.5 H [facility] PLATELET COUNT 262 K/mm3 172-450 [facility] MEAN PLATELET VOLUME 10.2 fl 9.0-13.0 [facility] pital GRAN % 80.3 % 50-80.0 H [facility] IG% 0.5 % 0.0-0.2 H [facility] LYMPH % 8.7 % 25.0-50.0 L [facility] MONO % 5.4 % 2.0-10.0 [facility] EOS % 4.9 % 0-5.0 [facility] BASO % 0.2 % 0.0-2.0 [facility] GRAN # 20.8 K/mm3 2.0-8.00 *H [facility] IG# 0.1 K/mm3 0.0-0.2 [facility] LYMPH # 2.3 K/mm3 1.0-5.0 [facility] MONO # 1.4 K/mm3 0.10-1.20 H [facility] EOS # 1.3 K/mm3 0.0-0.5 H [facility] BASO # 0.0 K/mm3 0.0-0.2 [facility] ID Date Data Source [id number] 05/05/2020 10:20:00 AM EST [facility] Name Value Range Interpretation Code Description Data Marcela rce(s) Supporting Document(s) [facility] ID Date Data Source [id number] 05/05/2020 10:20:00 AM EST [facility] Name Value Range Interpretation Code Description Data Marcela rce(s) Supporting Document(s) [facility] ID Date Data Source [id number] 04/28/2020 08:02:00 [facility] Name Value Range Interpretation Code Description Data Marcela rce(s) Supporting Document(s) NEUTROPHILS 81 % 50-80 H [facility] LYMPHOCYTE 8 % 25-50 L [facility] MONOCYTE 6 % 2.0-10.0 [facility] Eosinophils [#/volume] in Blood by Automated count 5 % 0-5 [facility] PLATELET ESTIMATE NORMAL NORMAL [facility] RBC MORPHOLOGY EXPECTED RESULTS:NORMAL= NORMOCHROMIC, NORMOCYTIC CELLSAbnormal Morphologic Findings > or = to 1+ are reported.Clinicopathologic correlation by the provider is required todetermine significance of finding. ID Date Data Source [id number] 04/28/2020 08:49:00 PM [facility] l Name Value Range Interpretation Code Description Data Marcela rce(s) Supporting Document(s) WHITE BLOOD COUNT 28.8 K/mm3 4.0-10.0 *[facility] RED BLOOD COUNT 3.23 M/mm3 4.50-6.00 L [facility] l HEMOGLOBIN 9.5 gm/dL 14.0-18.0 L [facility] HEMATOCRIT 28.5 % 42.0-54.0 L [facility] MEAN CELL VOLUME 88.2 fl 80-96 [facility] l MEAN CORPUSCULAR HEMOGLOBIN 29.4 pg 27.0-31.0 [facility] MEAN CORPUSCULAR HGB CONC 33.3 g/dl 32.0-36.0 [facility] RED CELL DISTRIBUTION WIDTH 14.7 % 10.0-14.5 H [facility] PLATELET COUNT 282 K/mm3 172-450 [facility] MEAN PLATELET VOLUME 9.5 fl 9.0-13.0 [facility] pital GRAN % 81.0 % 50-80.0 H [facility] IG% 0.2 % 0.0-0.2 [facility] LYMPH % 6.1 % 25.0-50.0 L [facility] MONO % 6.6 % 2.0-10.0 [facility] EOS % 5.9 % 0-5.0 H [facility] BASO % 0.2 % 0.0-2.0 [facility] GRAN # 23.3 K/mm3 2.0-8.00 *H [facility] IG# 0.1 K/mm3 0.0-0.2 [facility] LYMPH # 1.8 K/mm3 1.0-5.0 [facility] MONO # 1.9 K/mm3 0.10-1.20 H [facility] EOS # 1.7 K/mm3 0.0-0.5 *H [facility] BASO # 0.1 K/mm3 0.0-0.2 [facility] ID Date Data Source [id number] 04/28/2020 09:16:00 PM EST [facility] Name Value Range Interpretation Code Description Data Marcela rce(s) Supporting Document(s) GLUCOSE 146 mg/dL 74-106 H [facility] BLOOD UREA NITROGEN 47 mg/dL 7-18 H [facility] ital CREATININE 1.85 mg/dL 0.7-1.3 H [facility] SODIUM 131 mmol/L 136-145 L [facility] POTASSIUM 4.7 mmol/L 3.5-5.1 [facility] CHLORIDE 99 mmol/L 98-107 [facility] CO2 22 mmol/L 21-32 [facility] CALCIUM 7.8 mg/dL 8.5-10.1 L [facility] ANION GAP 10.0 mmol/L 5-12 [facility] GLOMERULAR FILTRATION RATE 36 mL/min [facility] GFR IS CALCULATED IN mL/min/1.73m2 ROBERT L FUNCTION: >90MILDLY DECREASED: 60-89MILDY TO MODERATELY DECREASED: 45-59 MODERATELY TO SEVERELY DECREASED: 30-44SEVERELY DECREASED: 15-29RENAL FAILURE: <15 AST 24 U/L 15-37 [facility] ALT 18 U/L 12-78 [facility] ALKALINE PHOSPHATASE 69 U/L 46-116 [facility] TOTAL BILIRUBIN 0.3 mg/dL 0.2-1.0 [facility] TOTAL PROTEIN 5.8 g/dl 6.4-8.2 L [facility] ALBUMIN 2.5 gm/dL 3.4-5.0 L [facility] ID Date Data Source [id number] 05/04/2020 12:05:00 PM EST [facility] Name Value Range Interpretation Code Description Data Marcela rce(s) Supporting Document(s) GI Profile, Stool, PCR Abnormal (applies to non-nu meric results) [facility] TESTS RESULT FLAG UNI TS REF RANGE LAB Campylobacter Note [A] 01 Not Detected Reference Range: Not DetectedC difficile toxin... Detected [A] 01 Reference Range: Not DetectedPlesiomonas shige... Note 01 Not Detected Reference Range: Not DetectedSalmonella Note 01 Not Detected Reference Range: Not DetectedVibrio Note 01 Not Dete cted Reference Range: Not DetectedVibrio cholerae Note 01 Not Detected Reference Range: Not DetectedYersinia enteroco... Note 01 Not Detected Reference Range: Not DetectedEnteroaggretative... Note 01 Not Detected Reference Range: Not DetectedEnteropathogenic ... Note 01 Not Detected Reference Range: Not DetectedEnterotoxigenic E... Note 01 Not Detected Reference Range: Not FzhqlfaiNxjqh-ablam-esfdr... Note 01 Not Detected Reference Range: Not DetectedE coli O157 Note 01 Not Detected Reference Range: Not DetectedShigella/Enteroin... Note 01 Not Detected Reference Range: Not DetectedCryptosporidium Note 01 Not Detected Reference Range: Not DetectedCyclospora cayeta... Note 01 Not Detected Reference Range: Not DetectedEntamoeba histoly... Note 01 Not Detected Reference Range: Not DetectedGiardia lamblia Note 01 Not Detected Reference Range: Not DetectedAdenovirus F 40/41 Note 01 Not Detected Reference Range: Not DetectedAstrovirus Note 01 Not Detected Reference Range: Not DetectedNorovirus GI/GII Note 01 Not Detected Reference Range: Not DetectedRotavirus A Note 01 Not Detected Reference Range: Not DetectedSapovirus Note 01 Not Detected Reference Range: Not Detected FLAG LEGEND: L-Low Normal,H-High Normal,LL-Alert Low,HH-Alert High <- Panic Low,>-Panic High,A-Abnormal,AA-Critical Abnormal Performed at:[address] [id number] Shanda Ryan MD, ID Date Data Source [id number] 04/28/2020 02:20:00 PM [facility] Name Value Range Interpretation Code Description Data Marcela rce(s) Supporting Document(s) STOOL FOR OCCULT BLOOD NEGATIVE NEGATIVE [facility] ID Date Data Source [id number] 04/28/2020 02:20:00 PM [facility] Name Value Range Interpretation Code Description Data Marcela rce(s) Supporting Document(s) CDIFF A/B POSITIVE NEGATIVE [facility] THIS TEST IS PERFORMED USING A RAPIDIMMU NONASSAY FOR DETECTING CLOSTRIDIUM DIFFICILE TOXINS AAND B. ID Date Data Source [id number] 04/26/2020 10:20:00 AM [facility] Name Value Range Interpretation Code Description Data Marcela rce(s) Supporting Document(s) GLUCOSE 260 mg/dL 74-106 H [facility] BLOOD UREA NITROGEN 33 mg/dL 7-18 H [facility] ital CREATININE 1.49 mg/dL 0.7-1.3 H [facility] SODIUM 133 mmol/L 136-145 L [facility] POTASSIUM 4.8 mmol/L 3.5-5.1 [facility] CHLORIDE 99 mmol/L 98-107 [facility] CO2 28 mmol/L 21-32 [facility] CALCIUM 9.3 mg/dL 8.5-10.1 [facility] ANION GAP 6.0 mmol/L 5-12 [facility] GLOMERULAR FILTRATION RATE 46 mL/min [facility] GFR IS CALCULATED IN mL/min/1.73m2 ROBERT L FUNCTION: >90MILDLY DECREASED: 60-89MILDY TO MODERATELY DECREASED: 45-59 MODERATELY TO SEVERELY DECREASED: 30-44SEVERELY DECREASED: 15-29RENAL FAILURE: <15 AST 16 U/L 15-37 [facility] ALT 22 U/L 12-78 [facility] ALKALINE PHOSPHATASE 77 U/L 46-116 [facility] pitsd TOTAL BILIRUBIN 0.4 mg/dL 0.2-1.0 [facility] TOTAL PROTEIN 7.2 g/dl 6.4-8.2 [facility] ALBUMIN 3.4 gm/dL 3.4-5.0 [facility] ID Date Data Source [id number] 04/26/2020 10:14:00 AM [facility] Name Value Range Interpretation Code Description Data Marcela rce(s) Supporting Document(s) WHITE BLOOD COUNT 8.7 K/mm3 4.0-10.0 [facility] al RED BLOOD COUNT 3.79 M/mm3 4.50-6.00 L [facility] HEMOGLOBIN 11.1 gm/dL 14.0-18.0 L [facility] HEMATOCRIT 33.8 % 42.0-54.0 L [facility] MEAN CELL VOLUME 89.2 fl 80-96 [facility] MEAN CORPUSCULAR HEMOGLOBIN 29.3 pg 27.0-31.0 [facility] MEAN CORPUSCULAR HGB CONC 32.8 g/dl 32.0-36.0 [facility] RED CELL DISTRIBUTION WIDTH 14.9 % 10.0-14.5 H [facility] PLATELET COUNT 344 K/mm3 172-450 [facility] ID Date Data Source [id number] 04/24/2020 12:46:00 PM [facility] Progress Note GeneralEncounter:Chart re viewed. Patient interviewed and examined. Labs, medications and orders viewed by me. SubjectiveGeneral Condition:Mr Fleming is here for a subacute rehav after his left below the knee amputation related to infection and arterial insufficiency.His left leg is healing nicely. There is no open areas. His pain is minimal He started PT. He is working on Upper extremity strength as well as his endurance. Undestandably his recent surgery was extremely stressful; he did have some mood swings related to his recent loos. He denies any chest pain or chest pressure. He denies shhortness of breath, any GI or symptoms.He did have Psych eval. He would benefit from supportive therapy.t this stage wewill hold off prescribing pharmaceuticals. ObjectiveNote:Temp; 98.5, Pulse; 110, Resp: 18, B/P: 118/63 SaO2: 99, O2 Status: RAEENT PERRL/EOMI, normal ENT inspection, TMs normalNeck normal inspection, non-tender, supple, full range of motionRespiratory chest non-tender, lungs clear, normal breath sounds, no respiratory distress, no accessory muscle useCardiovascular regular rate/rhythm, no edema, no gallop, no JVD, no murmur, normal peripheral pulsesGastrointestinal normal bowel sounds, non tender, soft, no organomegaly, no pulsatile massBack normal inspection, no CVA tenderness, no vertebral tendernessExtremities non-tender, normal range of motion, normal inspection, St post bilateral BKA.Left stomp is healing nicely.Neurologic/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 History of left below knee amputation A&PLeft BKA on March 26. Stomp is healing very well Obtaining consultation for stomp care. 2. History of right below knee amputation A&PWell healed Patient does have prosthesis for his right leg. He was able to walk before the left side amputation. 3. Candidiasis of skin A&PWill use Nystatin as needed 4. Glaucoma A&PContinue Opht medications 5. DKA (diabetic ketoacidosis) A&PResolved. 6. Iron deficiency A&PContinue supplementation. Will obtain iron studies as possibly there is also an impaired absorption. 7. Hypertension A&PWell controlled. No changes. Continue present medication 8. Hyperlipidemia A&PStatin to be continued 9. COPD (chronic obstructive pulmonary disease) A&PSo far well controlled 10. Osteomyelitis of left foot A&PSt post left BKA. Off antibiotics, sutures and jose luis out.iHealing very well. Continue supplementation for healing Consulted Mr Damon to discuss stomp care and preparation 11. Diabetes mellitus A&PContinue ADA diet Continue long lasting insulin as well as sliding scale coverage 12. PAD (peripheral artery disease) A&PContinue secondary prevention, Severe 13. GERD (gastroesophageal reflux disease) A&PContinue PPIs Name Value Range Interpretation Code Description Data Marcela rce(s) Supporting Document(s) ID Date Data Source [id number] 04/22/2020 04:36:00 PM EST [facility] In-Patient NoteNote:Mr Fleming had psych consult today. The recommendation was to start therapy is possible but no medications at this point. Name Value Range Interpretation Code Description Data [facility] rce(s) Supporting Document(s) ID Date Data Source [id number] 04/19/2020 08:46:00 PM EST [facility] Progress Note GeneralEncounter:Chart re viewed. Patient interviewed and examined. Labs, medications and orders viewed by me. SubjectiveGeneral Condition:Mr Fleming is a 74 year old male who was transferred here from [facility] where he underwent BKA of his left leg after developing infection related to trauma. He is off his IV antibiotics now. His left leg is healing very well. His jose luis and sutures are now removed and steri strips are in place. Mr Fleming is adjusting well to his stay here. He was frustrated we do not carry Levemir Insulin.We started his on Lantus but slightly lower dose as hospital diet is usually more restricted,He is sleeping well He denies any chest discomfort or any GI or symptoms.He would like to work on his prosthesis care with the same lab he did for his right leg. We will obtain consult.Mr Fleming had 2 units of PRBCs transfusion at [facility]. His Hb is 9.3. We will follow that issue and also obtain Iron studies.Laboratory Tests All Test Result Date Time Chemistry Sodium (136 - 145 mmol/L) 133 L 04/19 0555 Potassium (3.5 - 5.1 mmol/L) 4.9 04/19 0555 Chloride (98 - 107 mmol/L) 98 04/19 0555 Carbon Dioxide (21 - 32 mmol/L) 29 04/19 0555 Anion Gap (5 - 12 mmol/L) 6.0 04/19 0555 BUN (7 - 18 mg/dL) 24 H 04/19 0555 Creatinine (0.7 - 1.3 mg/dL) 1.40 H 04/19 0555 Estimated GFR (MDRD) (mL/min) 50 04/19 0555 Glucose (74 - 106 mg/dL) 250 H 04/19 0555 Estimat Average Glucose (mg/dL) 228.8 04/16 0618 Hemoglobin A1c (3.8 - 5.6 %) 9.6 H 04/16 0618 Specific Antoine (1.001 - 1.035) 1.020 04/15 1330 Calcium (8.5 - 10.1 mg/dL) 8.7 04/19 0555 Total Bilirubin (0.2 - 1.0 mg/dL) 0.3 04/19 0555 AST (15 - 37 U/L) 17 04/19 0555 ALT (12 - 78 U/L) 23 04/19 0555 Alkaline Phosphatase (46 - 116 U/L) 59 04/19 0555 C-Reactive Protein (0.0 - 3.0 mg/L) 12.4 H 04/16 0618 Total Protein (6.4 - 8.2 g/dl) 6.7 04/19 0555 Albumin (3.4 - 5.0 gm/dL) 2.7 L 04/19 0555 Hematology WBC (4.0 - 10.0 K/mm3) 8.0 04/19 0555 RBC (4.50 - 6.00 M/mm3) 3.18 L 04/19 0555 Hgb (14.0 - 18.0 gm/dL) 9.3 L 04/19 0555 Hct (42.0 - 54.0 %) 28.1 L 04/19 0555 MCV (80 - 96 fl) 88.4 04/19 0555 MCH (27.0 - 31.0 pg) 29.2 04/19 0555 MCHC Differential (32.0 - 36.0 g/dl) 33.1 04/19 0555 RDW (10.0 - 14.5 %) 14.6 H 04/19 0555 Plt Count (172 - 450 K/mm3) 273 04/19 0555 MPV (9.0 - 13.0 fl) 9.5 04/19 0555 Gran % (Auto) (50 - 80.0 %) 69.2 04/19 0555 Gran # (2.0 - 8.00 K/mm3) 5.6 04/19 0555 Immature Gran % (0.0 - 0.2 %) 0.1 04/19 0555 Lymphocytes % (25.0 - 50.0 %) 18.2 L 04/19 0555 Monocytes % (2.0 - 10.0 %) 7.2 04/19 0555 Eosinophils % (0 - 5.0 %) 4.6 04/19 0555 Basophils % (0.0 - 2.0 %) 0.7 04/19 0555 Immature Gran # (0.0 - 0.2 K/mm3) 0.0 04/19 0555 Lymphocytes # (1.0 - 5.0 K/mm3) 1.5 04/19 0555 Monocytes # (0.10 - 1.20 K/mm3) 0.6 04/19 0555 Eosinophils # (0.0 - 0.5 K/mm3) 0.4 04/19 0555 Basophils # (0.0 - 0.2 K/mm3) 0.1 04/19 05 Urines Urine Color YELLOW 04/15 1329 Urine Appearance CLEAR 04/15 1329 Urine pH (5.0 - 9.0) 7.0 04/15 1329 Urine Protein (NEGATIVE mg/dL) NEGATIVE 04/15 1329 Urine Ketones (NEGATIVE mg/dL) NEGATIVE 04/15 1329 Urine Blood (NEGATIVE) TRACE H 04/15 1329 Urine Nitrite (NEGATIVE) NEGATIVE 04/15 1329 Urine Bilirubin (NEGATIVE) NEGATIVE 04/15 1329 Urine Urobilinogen (0 - 1 mg/dL) NORMAL(0.2-1) 04/15 1329 Ur Leukocyte Esterase (NEGATIVE) NEGATIVE 04/15 1329 Urine Microscopic RBC (0 - 3 /hpf) NON E SEEN 04/15 1329 Urine Microscopic WBC (0 - 5 /hpf) NONE SEEN 04/15 1329 Ur Epithelial Cells (0 /hpf) 1+ 04/15 1329 Urine Glucose (NEGATIVE mg/dL) 500 H 04/15 1329 ObjectiveNote:Temp; 97.2, Pulse; 80, Resp: 16, B/P: 149/71 SaO2: 99, O2 Status: RA EENT PERRL/EOMI, normal ENT inspection, TMs normalNeck normal inspection, non-tender, supple, full range of motionRespiratory chest non-tender, lungs clear, normal breath sounds, no respiratory distress, no accessory muscle useCardiovascular regular rate/rhythm, no edema, no gallop, no JVD, no murmur, normal peripheral pulsesGastrointestinal normal bowel sounds, non tender, soft, no organomegaly, no pulsatile massBack normal inspection, no CVA tenderness, no vertebral tendernessExtremities non-tender, normal range of motion, normal inspection, St post bilateral 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 alert, 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, normal mood/affect, no motor/sensory deficits, oriented x 3Skin warm/dryLymphatic no adenopathyOther:Current MedicationsAcet aminophen 1,000 MG TID PO Aspirin 81 MG DAILY PO Bisacodyl 10 MG Q24H PRN RC IF NO BM IN PRIOR 24 HRS Brimonidine Tartrate 1 DROP BID OU Clopidogrel Bisulfate 75 MG DAILY PO Docusate Sodium 200 MG DAILY PO Ferrous Sulfate 325 MG BID PO Heparin Sodium 5,000 UNIT Q8H.2 SC Insulin Glargine 20 U DAILY SC Insulin Human Regular MODERATE DOSE - Sliding Scale < 60 MG/DL * Follow Hypoglycemic Protocol 61 - 150 No COVERAGE 151 - 180 2 UNITS 181 - 240 4 UNITS 241 - 300 6 UNITS 301 - 350 8 UNITS 351 - 400 10 UNITS > 400 Serum Glucose, Notify Provider ACHS SC Latanoprost 1 DROP HS OU Multivitamins 1 TAB DAILY PO Nutritional Formula (Lactose Free) 1 CAP DAILY@1400 PO Nystatin 1 DOSE BID TP Omeprazole 40 MG DAILY 0700 PO Oxycodone HCl 5 MG Q4H PRN PO PAIN SEVERE (7- 10/10) Senna 8.6 MG HS PO Assessment/PlanAllergiesCoded Allergies:Penicillins (Intermediate, Hives 04/15/20) Problem List 1. History of left below knee amputation A&PLeft BKA on March 26. Stomp is healing very well Obtaining consultation for stomp care. 2. History of right below knee amputation A&PWell healed Patient does have prosthesis and he was able to walk. 3. Candidiasis of skin A&PWill use Nystatin as needed 4. Glaucoma A&PContinue Opht medications 5. DKA (diabetic ketoacidosis) A&PResolved. That was February 2020 6. Iron deficiency A&PContinue supplementation. Edithll obtain iron studies as possibly there is also an impaired absorption. 7. Hypertension A&PWell controlled Continue present medication 8. Hyperlipidemia A&PStatin to be continued 9. COPD (chronic obstructive pulmonary disease) A&PSo far well controlled 10. Osteomyelitis of left foot A&PSt post left BKA Off antibiotics 11. Diabetes mellitus A&PContinue ADA diet Long lasting insulin as well as sliding scale coverage 12. PAD (peripheral artery disease) A&PContinue secondary prevention 13. GERD (gastroesophageal reflux disease) A&PContinue PPIs Advance Care Planning* 5 minutes of [id number] time spent for Advance Care Planning in explanation/discussion of Advance Directives.* Following people are present during the meeting: Mr Alberto and myself* Decisions reached: Maintain full code VTE ProphylaxisVTE Prophylaxis: Continue heparin sc Name Value Range Interpretation Code Description Data Marcela rce(s) Supporting Document(s) ID Date Data Source [id number] 04/19/2020 06:32:00 AM [facility] l Name Value Range Interpretation Code Description Data [facility] rce(s) Supporting Document(s) GLUCOSE 250 mg/dL 74-106 [facility] BLOOD UREA NITROGEN 24 mg/dL 7-18 H [facility] ital CREATININE 1.40 mg/dL 0.7-1.3 H [facility] SODIUM 133 mmol/L 136-145 L [facility] POTASSIUM 4.9 mmol/L 3.5-5.1 [facility] CHLORIDE 98 mmol/L 98-107 [facility] CO2 29 mmol/L 21-32 [facility] CALCIUM 8.7 mg/dL 8.5-10.1 [facility] ANION GAP 6.0 mmol/L 5-12 [facility] GLOMERULAR FILTRATION RATE 50 mL/min [facility] GFR IS CALCULATED IN mL/min/1.73m2 ROBERT L FUNCTION: >90MILDLY DECREASED: 60-89MILDY TO MODERATELY DECREASED: 45-59 MODERATELY TO SEVERELY DECREASED: 30-44SEVERELY DECREASED: 15-29RENAL FAILURE: <15 AST 17 U/L 15-37 [facility] ALT 23 U/L 12-78 [facility] ALKALINE PHOSPHATASE 59 U/L 46-116 [facility] pital TOTAL BILIRUBIN 0.3 mg/dL 0.2-1.0 [facility] TOTAL PROTEIN 6.7 g/dl 6.4-8.2 [facility] ALBUMIN 2.7 gm/dL 3.4-5.0 L [facility] ID Date Data Source [id number] 04/19/2020 06:03:00 AM [facility] Name Value Range Interpretation Code Description Data Marcela e(s) Supporting Document(s) WHITE BLOOD COUNT 8.0 K/mm3 4.0-10.0 [facility]LOOD COUNT 3.18 M/mm3 4.50-6.00 L [facility] HEMOGLOBIN 9.3 gm/dL 14.0-18.0 L [facility] HEMATOCRIT 28.1 % 42.0-54.0 L [facility] MEAN CELL VOLUME 88.4 fl 80-96 [facility] MEAN CORPUSCULAR HEMOGLOBIN 29.2 pg 27.0-31.0 [facility] MEAN CORPUSCULAR HGB CONC 33.1 g/dl 32.0-36.0 [facility] RED CELL DISTRIBUTION WIDTH 14.6 % 10.0-14.5 H [facility] PLATELET COUNT 273 K/mm3 172-450 [facility] MEAN PLATELET VOLUME 9.5 fl 9.0-13.0 [facility] pital GRAN % 69.2 % 50-80.0 [facility] IG% 0.1 % 0.0-0.2 [facility] LYMPH % 18.2 % 25.0-50.0 L [facility] MONO % 7.2 % 2.0-10.0 [facility] EOS % 4.6 % 0-5.0 [facility] BASO % 0.7 % 0.0-2.0 [facility] GRAN # 5.6 K/mm3 2.0-8.00 [facility] IG# 0.0 K/mm3 0.0-0.2 [facility] LYMPH # 1.5 K/mm3 1.0-5.0 [facility] MONO # 0.6 K/mm3 0.10-1.20 [facility] EOS # 0.4 K/mm3 0.0-0.5 [facility] BASO # 0.1 K/mm3 0.0-0.2 [facility] ID Date Data Source [id number] 04/16/2020 09:38:00 AM [facility] HistoryChief Complaint/Admit ReasonDebi llity and deconditioningSt post left below the knee amputationHistory of Presenting IllnessThis is a 74 year old male with past medical history of diabetes mellitus, PAD, st post right BKA, hyperlipidemia, hypertension, iron deficiency anemia, peripheral neuropathy,iron deficiency anemia who was treated at [facility] in February 2020 for DKA and left foot infection (he dropped a heavy box on his left foot). Due to severe arterial ischemia involving left lower extremity arterial supply and left foot osteomyelitis after vascular consult patient underwent a left BKA on .In a postoperative period Mr Fleming had PRBCs transfusion and IV antibiotics werecontinued for concern of a residual limb cellulitis. Patient was referred for acute PT/OT rehab program at [facility]. He was maintained on IV antibiotics, his insulin was adjusted and he was started on Iron supplementation. The demand of an acute rehab program were to exhausting for Mr Fleming. He was referred to [facility] for a subacute rehab. Prior to discharge his jose luis and sutures were removed. Mr Fleming has been using right leg prosthesis prior to his February leftfoot infection. He is coming to [facility] for a Subacute rehab and recoveryfrom his recent Left leg amputation and a new bilateral BKA amputation status. Past Medical/Surgical HistoryPast Medical/Surgical HistoryMedical Problems Candidiasis of skin COPD (chronic obstructive pulmonary disease) Diabetes mellitus DKA (diabetic ketoacidosis) GERD (gastroesophageal reflux disease) Glaucoma History of left below knee amputation Hyperlipidemia Hypertension Iron deficiency Osteomyelitis of left foot PAD (peripheral artery disease)Surgical Problems History of appendectomy History of right below knee amputation Reconciled Home Med ListSee Reconciled Home Medication List AllergiesCoded Allergies:Penicillins (Intermediate, Hives 04/15/20) Family history Strong family gx for DM, heart disease and renal diseaseSocial History quit smoking, no alcohol use, no recreational drug use Review of SystemsConstitutionalReports: Generalized weakness, Fatigue. SkinReports: rash, other (recent left BKA ). EyesReports: other (Glaucoma). Denies: redness, discharge, visual loss/blurred, itching. ENTDenies: earache, ear ringing, hearing loss, mouth pain, nose bleeding. RespiratoryDenies: shortness of breath, wheezing, hemoptysis. CardiovascularDenies: chest pain, palpitations. GastrointestinalDenies: nausea, vomiting, diarrhea, constipation. GenitourinaryDenies: dysuria, hematuria, nocturia. MusculoskeletalReports: other (Hx of r.JOSEA and s.p. left BKA). HematologyReports: other (Anemia). EndocrineReports: hyperglycemia. NeurologicalReports: other (diabetic neuropathy). PsychDenies: agitation, anxiety, confusion, delusional, depression. Unable to obtainTHe 14 system review was negative unless mentioned above ExamVital SignsVital Signs 04/15 04/15 1131 2019 Temp 98.0 97.0 Pulse 77 80 Resp 16 18 B/P 142/77 155/70 B/P Mean Pulse Ox 98 99 O2 Delivery O2 Flow Rate FiO2 Physical ExaminationEENT PERRL/EOMI, normal ENT inspection, pharynx normalNeck normal inspection, non-tender, supple, full range of motio nRespiratory chest non-tender, lungs clear, normal breath sounds, no respiratory distress, no accessory muscle useCardiovascular regular rate/rhythm, no edema, no gallop, no JVDGastrointestinal normal bowel sounds, non tender, soft, no organomegaly, no pulsatile massBack Exam normal inspection, no CVA tendernessExtremities normal range of motion, Upper extremities, St post Bilat. 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 alert, 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, normal mood/affect, no motor/sensory deficits, oriented x 3Skin Opal infection related skin irritation is groin areaLymphatic no adenopathy Assessment/PlanProblem List 1. History of left below knee amputation A&PContinue healing of surgical incision and preparing the left leg for a prosthesis 2. History of right below knee amputation A&PPatient was using his prosthesis prior to his left leg amputation 3. Candidiasis of skin A&PInvolving skin folds.Will continue Nystatin powder 4. Glaucoma A&PContinue eye preparations 5. DKA (diabetic ketoacidosis) A&PDecember 2019 Resolved now. Qualifiers Diabetes mellitus type: type 2 6. Iron deficiency A&PPatiernt did have PRBCs transfusion.Continue Iron supplementation BID 7. Hypertension Qualifiers Hypertension type: essential hypertension Qualified Code: I10 - Essential (primary) hypertension 8. Hyperlipidemia A&PContinue statins Qualifiers Hyperlipidemia type: mixed hyperlipidemia Qualified Code: E78.2 - Mixed hyperlipidemia 9. COPD (chronic obstructive pulmonary disease) A&PNo current isues Qualifiers COPD type: chronic bronchitis Chronic bronchitis type: unspecified Qualified Code: J42 - Unspecified chronic bronchitis 10. Osteomyelitis of left foot A&PLeft BKA 2019 Qualifiers Osteomyelitis type: unspecified type Qualified Code: M86.9 - Osteomyelitis, unspecified 11. Diabetes mellitus A&PConsistent carb diet and insulin lantus plus sliding scale Qualifiers Diabetes mellitus type: type 2 12. PAD (peripheral artery disease) A&PContinue secondary prevention,,Continue PLavix 13. GERD (gastroesophageal reflux disease) A&PReplaced Protonix with Omeprazole 40 mg po daily Qualifiers Esophagitis presence: with esophagitis DIET Consistent Carb. 60gActivity OOB as tolerated w/assistPatient Condition StableResuscitation Status FULL CODEPlan discussed with patientCase discussed with case advocate, nursing staffCopies toFamily Provider: VTE ProphylaxisVTE Prophylaxis: SQ Heparin Name Value Range Interpretation Code Description Data [facility] rce(s) Supporting Document(s) ID Date Data Source [id number] 04/16/2020 06:50:00 AM [facility] Name Value Range Interpretation Code Description [facility]) HGBA1C 9.6 % 3.8-5.6 H [facility] Diabetic > or = to 6.5%Prediabetes 5.7-6 .4%Normal <5.7 ESTIMATED AVERAGE GLUCOSE 228.8 mg/dL [facility] ID Date Data Source [id number] 04/16/2020 06:34:00 AM [facility] l Name Value Range Interpretation Code Description Data [facility] Supporting Document(s) WHITE BLOOD COUNT 7.3 K/mm3 4.0-10.0 [facility] al RED BLOOD COUNT 3.34 M/mm3 4.50-6.00 L [facility] HEMOGLOBIN 9.8 gm/dL 14.0-18.0 [facility] HEMATOCRIT 30.1 % 42.0-54.0 L [facility] MEAN CELL VOLUME 90.1 fl 80-96 [facility] MEAN CORPUSCULAR HEMOGLOBIN 29.3 pg 27.0-31.0 [facility] MEAN CORPUSCULAR HGB CONC 32.6 g/dl 32.0-36.0 [facility] RED CELL DISTRIBUTION WIDTH 14.7 % 10.0-14.5 H [facility] PLATELET COUNT 301 K/mm3 172-450 [facility] MEAN PLATELET VOLUME 9.3 fl 9.0-13.0 [facility] pital GRAN % 60.9 % 50-80.0 [facility] IG% 0.1 % 0.0-0.2 [facility] LYMPH % 23.5 % 25.0-50.0 L [facility] MONO % 6.8 % 2.0-10.0 [facility] EOS % 7.7 % 0-5.0 H [facility] BASO % 1.0 % 0.0-2.0 [facility] GRAN # 4.5 K/mm3 2.0-8.00 [facility] IG# 0.0 K/mm3 0.0-0.2 [facility] LYMPH # 1.7 K/mm3 1.0-5.0 [facility] MONO # 0.5 K/mm3 0.10-1.20 [facility] EOS # 0.6 K/mm3 0.0-0.5 H [facility] BASO # 0.1 K/mm3 0.0-0.2 [facility] ID Date Data Source [id number] 04/16/2020 07:05:00 AM EST [facility] l Name Value Range Interpretation Code Description Data Marcela rce(s) Supporting Document(s) C REACTIVE PROTEIN 12.4 mg/L 0.0-3.0 [facility] ID Date Data Source [id number] 04/16/2020 07:05:00 AM [facility] l Name Value Range Interpretation Code Description Data Marcela rce(s) Supporting Document(s) GLUCOSE 274 mg/dL 74-106 H [facility] BLOOD UREA NITROGEN 21 mg/dL 7-18 H [facility] ital CREATININE 1.29 mg/dL 0.7-1.3 [facility] SODIUM 137 mmol/L 136-145 [facility] POTASSIUM 5.2 mmol/L 3.5-5.1 H [facility] CHLORIDE 102 mmol/L 98-107 [facility] CO2 29 mmol/L 21-32 [facility] CALCIUM 9.4 mg/dL 8.5-10.1 [facility] ANION GAP 6.0 mmol/L 5-12 [facility] GLOMERULAR FILTRATION RATE 54 mL/min [facility] GFR IS CALCULATED IN mL/min/1.73m2 ROBERT L FUNCTION: >90MILDLY DECREASED: 60-89MILDY TO MODERATELY DECREASED: 45-59 MODERATELY TO SEVERELY DECREASED: 30-44SEVERELY DECREASED: 15-29RENAL FAILURE: <15 AST 21 U/L 15-37 [facility] ALT 27 U/L 12-78 [facility] ALKALINE PHOSPHATASE 63 U/L 46-116 [facility] pital TOTAL BILIRUBIN 0.4 mg/dL 0.2-1.0 [facility] TOTAL PROTEIN 7.1 g/dl 6.4-8.2 [facility] ALBUMIN 2.8 gm/dL 3.4-5.0 L [facility] ID Date Data Source [id number] 04/15/2020 01:52:00 PM EST [facility] spital Name Value Range Interpretation Code Description Data Marcela rce(s) Supporting Document(s) URINE RBC NONE SEEN /hpf 0-3 [facility] URINE WBC NONE SEEN /hpf 0-5 [facility] URINE EPITHELIAL CELLS 1+ /hpf 0 [facility]ital ID Date Data Source [id number] 04/15/2020 01:44:00 PM [facility] ital Name Value Range Interpretation Code Description Data Marcela rce(s) Supporting Document(s) URINE COLOR. [facility] URINE APPEARANCE CLEAR [facility] GLUCOSE (UA) 500 mg/dL NEGATIVE [facility] dawn URINE BILIRUBIN NEGATIVE NEGATIVE [facility] URINE KETONE NEGATIVE mg/dL NEGATIVE [facility] al SPECIFIC GRAVITY,URINE 1.020 1.001-1.035 [facility] URINE BLOOD TRACE NEGATIVE [facility] PH,URINE 7.0 5.0-9.0 [facility] URINE PROTEIN NEGATIVE mg/dL NEGATIVE [facility] URINE UROBILINOGEN NORMAL(0.2-1) mg/dL 0-1 [facility] URINE NITRATE NEGATIVE NEGATIVE [facility] URINE LEUKOCYTE ESTERASE NEGATIVE NEGATIVE [facility] ID Date Data Source [id number] 04/15/2020 09:23:00 AM EST [facility] Name Value Range Interpretation Code Description Data Marcela rce(s) Supporting Document(s) SARS coronavirus 2 RNA [Presence] in Res piratory specimen by ZEYAD with probe detection NEGATIVE [facility] This lab was ordered by [facility] a nd reported by [facility]. ID Date Data Source [id number] 03/25/2020 06:08:00 PM EST [facility] Name Value Range Interpretation Code Description Data Marcela rce(s) Supporting Document(s) SARS coronavirus 2 RNA [Presence] in Res piratory specimen by ZEYAD with probe detection [facility] This lab was ordered by [facility] a nd reported by [facility]. ID Date Data Source [id number] 03/18/2020 07:56:00 PM EST [facility] Name Value Range Interpretation Code Description Data Marcela rce(s) Supporting Document(s) SARS coronavirus 2 RNA [Presence] in Res piratory specimen by ZEYAD with probe detection [facility] This lab was ordered by [facility] a nd reported by [facility]. ID Date Data Source [id number] 07/26/2019 01:58:00 PM EDT [facility] Name Value Range Interpretation Code Description Data Marcela rce(s) Supporting Document(s) SODIUM 141 MEQ/L 135-145 N [facility] POTASSIUM 4.8 MEQ/L 3.5-5.3 [facility] CHLORIDE 107 MEQ/L 94-110 [facility] CARBON DIOXIDE 23 MEQ/L 22-33 N [facility] ANION GAP 16 5-16 N [facility] BLOOD UREA NITRO 24 MG/DL 7-25 [facility] CREATININE 1.3 MG/DL 0.6-1.4 [facility] GFR 54.1 ML/MIN [facility] Stage G3a - Mildly to moderately decrea sed kidney function The GFR is an estimate of the Glomerular Filtration Rate. It is an aid to assess a patient's renal function. It is not a conclusive diagnosis of kidney disease. GFR normal is >=90 The MDRD GFR calculation is considered valid between the ages of 18 and 75 years only. BUN/CREAT RATIO 18 8-36 N [facility] GLUCOSE 261 MG/DL 70-100 H [facility] CA 9.3 MG/DL 8.7-10.5 [facility] BILIRUBIN,TOTAL 0.3 MG/DL 0.1-1.3 [facility] AST 12 U/L 5-40 [facility] ALT 14 U/L 5-48 [facility] ALKALINE PHOSPHATASE 66 U/L 40-140 [facility] alth TOTAL PROTEIN 6.7 G/DL 5.9-8.3 N [facility] ALBUMIN 4.5 G/DL 3.0-5.1 [facility] GLOBULIN 2.2 G/DL 1.5-3.5 [facility] ALB/GLOB RATIO 2.0 G/DL 1.0-3.0 N [facility] ID Date Data Source [id number] 07/26/2019 01:58:00 PM [facility] Name Value Range Interpretation Code Description Data Marcela rce(s) Supporting Document(s) GLYCOSYLATED HGBA1C 10.5 % 4.1-6.5 [facility] Date Data Source [id number] 07/26/2019 01:58:00 PM EDT [facility] Name Value Range Interpretation Code Description Data Marcela rce(s) Supporting Document(s) TRIGLYCERIDES 152 MG/DL 45-150 [facility] CHOLESTEROL 146 MG/DL 125-200 [facility] LDL CHOLESTEROL 76 MG/DL 50-130 [facility] HDL CHOLESTEROL 40 MG/DL 39-96 [facility] CHOL/HDL RATIO 3.7 0-4.9 N [facility] ID Date Data Source [id number] 04/16/2019 02:37:00 PM EST [facility] Name Value Range Interpretation Code Description Data Marcela rce(s) Supporting Document(s) SODIUM 142 MEQ/L 135-145 [facility] POTASSIUM 4.5 MEQ/L 3.5-5.3 N [facility] CHLORIDE 107 MEQ/L 94-110 [facility] CARBON DIOXIDE 26 MEQ/L 22-33 N [facility] ANION GAP 14 5-16 N [facility] BLOOD UREA NITRO 17 MG/DL 7-25 N [facility] CREATININE 1.3 MG/DL 0.6-1.4 N [facility] GFR 54.1 ML/MIN [facility] Stage G3a - Mildly to moderately decrea sed kidney function GFR normal is >=90 The MDRD GFR calculation is considered valid between the ages of 18 and 75 years only. The GFR is an estimate of the Glomerular Filtration Rate. It is considered accurate in evaluating patients with Chronic Kidney Disease,but may underestimate kidney function in Healthy Patients. BUN/CREAT RATIO 13 8-36 [facility] GLUCOSE 271 MG/DL 70-100 H [facility] CA 9.0 MG/DL 8.7-10.5 [facility] BILIRUBIN,TOTAL 0.3 MG/DL 0.1-1.3 N [facility] AST 14 U/L 5-40 [facility] ALT 16 U/L 5-48 [facility] ALKALINE PHOSPHATASE 73 U/L 40-140 [facility] TOTAL PROTEIN 6.4 G/DL 5.9-8.3 [facility] ALBUMIN 4.1 G/DL 3.0-5.1 [facility] GLOBULIN 2.3 G/DL 1.5-3.5 [facility] [place] ALB/GLOB RATIO 1.8 G/DL 1.0-2.7 [facility] [place] ID Date Data Source [id number] 04/16/2019 02:37:00 PM EST [facility] [place] Name Value Range Interpretation Code Description Data Marcela rce(s) Supporting Document(s) GLYCOSYLATED HGBA1C 9.2 % 4.1-6.5 [facility] ID Date Data Source [id number] 04/16/2019 02:37:00 PM [facility] [place] Name Value Range Interpretation Code Description Data Marcela rce(s) Supporting Document(s) TRIGLYCERIDES 97 MG/DL 45-150 [facility] CHOLESTEROL 160 MG/DL 125-200 [facility] LDL CHOLESTEROL 99 MG/DL 50-130 [facility] HDL CHO[facility]STEROL 42 MG/DL 39-96 [facility] CHOL/HDL RATIO 3.8 0-4.9 [facility] Procedure Social History Code Duration Value Status Description Data Source(s ) Smoking 03/25/2020 12:00:00 AM EST Never Smoker completed Never S moker eCW1 ([facility]) Smoking 07/27/2019 12:00:00 AM EDT Never Smoker completed Never S moker eCW1 ([facility]) Smoking 07/27/2019 12:00:00 AM EDT Never Smoker completed Never S moker eCW1 ([facility]) Smoking 07/27/2019 12:00:00 AM EDT Never Smoker completed Never S moker eCW1 ([facility]) Smoking 07/27/2019 12:00:00 AM EDT Never Smoker completed Never S moker eCW1 ([facility]) Smoking 07/27/2019 12:00:00 AM EDT Never Smoker completed Never S moker eCW1 ([facility]) Smoking 07/27/2019 12:00:00 AM EDT Never Smoker completed Never S moker eCW1 ([facility]) Smoking 07/27/2019 12:00:00 AM EDT Never Smoker completed Never S moker eCW1 ([facility]) Smoking 07/27/2019 12:00:00 AM EDT Never Smoker completed Never S moker eCW1 ([facility]) Smoking 07/27/2019 12:00:00 AM EDT Never Smoker completed Never S moker eCW1 ([facility]) Smoking 07/27/2019 12:00:00 AM EDT Never Smoker completed Never S moker eCW1 ([facility]) Smoking 07/27/2019 12:00:00 AM EDT Never Smoker completed Never S moker eCW1 ([facility]) Smoking 07/27/2019 12:00:00 AM EDT Never Smoker completed Never S moker eCW1 ([facility]) Smoking 07/27/2019 12:00:00 AM EDT Never Smoker completed Never S moker eCW1 ([facility]) Smoking 07/27/2019 12:00:00 AM EDT Never Smoker completed Never S moker eCW1 ([facility]) Vital Signs ID Date Data Source UNK Name Value Range Interpretation Code Description Data Source(s) Body mass index (BMI) [Ratio] 33.04 kg/m2 33.04 kg/m2 W1 ([facility]) Body height 67 [in_us] 67 [in_us] eCW1 ([facility]) Body weight Measured 211 [lb_av] 211 [lb_av] eC W1 ([facility]) Body weight Measured 211.2 [lb_av] 211.2 [lb_av ] W1 ([facility]) Diastolic blood pressure 72 mm[Hg] 72 mm[Hg] eCW1 ([facility]) Systolic blood pressure 130 mm[Hg] 130 mm[Hg] e CW1 ([facility]) Body temperature 98.2 [degF] 98.2 [degF] W1 ( [facility]) Respiratory rate 18 /min 18 /min eCW1 ([facility]) Heart rate 118 /min 118 /min eCW1 ([facility]) Body mass index (BMI) [Ratio] 33.07 kg/m2 33.07 kg/m2 eCW1 ([facility]) Body height 67 [in_us] 67 [in_us] eCW1 ([facility]) Diastolic blood pressure 72 mm[Hg] 72 mm[Hg] eCW1 ([facility]) Systolic blood pressure 122 mm[Hg] 122 mm[Hg] e CW1 ([facility]) Body temperature 98.1 [degF] 98.1 [degF] eCW1 ( [facility]) Respiratory rate 18 /min 18 /min eCW1 ([facility]) Heart rate 103 /min 103 /min eCW1 ([facility]) Body mass index (BMI) [Ratio] 33.76 kg/m2 33.76 kg/m2 eCW1 ([facility]) Body height 67 [in_us] 67 [in_us] eCW1 ([facility]) Body weight Measured 215.6 [lb_av] 215.6 [lb_av ] eCW1 ([facility]) Diastolic blood pressure 56 mm[Hg] 56 mm[Hg] eCW1 ([facility]) Systolic blood pressure 138 mm[Hg] 138 mm[Hg] e CW1 ([facility]) Body temperature 99.1 [degF] 99.1 [degF] eCW1 ( [facility]) Respiratory rate 16 /min 16 /min eCW1 ([facility]) Heart rate 87 /min 87 /min eCW1 ([facility]) Body mass index (BMI) [Ratio] 35.39 kg/m2 35.39 kg/m2 eCW1 ([facility]) Body height 67 [in_us] 67 [in_us] eCW1 ([facility]) Body weight Measured 226 [lb_av] 226 [lb_av] eC W1 ([facility]) Diastolic blood pressure 65 mm[Hg] 65 mm[Hg] eCW1 ([facility]) Systolic blood pressure 144 mm[Hg] 144 mm[Hg] e CW1 ([facility]) Body temperature 98.1 [degF] 98.1 [degF] eCW1 ( [facility]) Respiratory rate 18 /min 18 /min eCW1 ([facility]) Heart rate 83 /min 83 /min eCW1 ([facility]) Body mass index (BMI) [Ratio] 35.86 kg/m2 35.86 kg/m2 eCW1 ([facility]) Body height 67 [in_us] 67 [in_us] eCW1 ([facility]) Body weight Measured 229 [lb_av] 229 [lb_av] eC W1 ([facility]) ID Date Data Source [id number] 05/14/2020 11:15:00 AM EST [facility] Name Value Range Interpretation Code Description Data Source(s) WEIGHT 75.7 kilos 75.7 [facility] HEIGHT 170.18 centimeters 170.18 centimeter [facility] WEIGHT 95.8 kilos 95.8 [facility] HEIGHT 152.4 centimeters 152.4 centimeters [facility] WEIGHT 78.3 kilos 78.3 [facility] HEIGHT 170.18 centimeters 170.18 centimeter [facility] ID Date Data Source [id number] 05/07/2020 11:37:00 AM EST [facility] Name Value Range Interpretation Code Description Data Source(s) WEIGHT 78.3 kilos 78.3 [facility] HEIGHT 170.18 centimeters 170.18 centimeter [facility] ID Date Data Source [id number] 05/07/2020 11:37:00 AM EST [facility] Name Value Range Interpretation Code Description Data Source(s) WEIGHT 78.3 kilos 78.3 [facility] HEIGHT 170.18 centimeters 170.18 centimeter [facility] WE[facility].18 centimeters 170.18 centimeter [facility] WEIGHT 82.1 kilos 82.1 [facility] HEIGHT 170.18 centimeters 170.18 centimeter [facility] Patient Treatment Plan of Care Planned Activity Planned Date Details Description Data Source (s) Glucometer 05/13/2019 12:00:00 AM EST e CW1 ([facility]) Glucometer 05/13/2019 12:00:00 AM EST e CW1 ([facility]) Glucometer 05/13/2019 12:00:00 AM EST e CW1 ([facility]) Glucometer 05/13/2019 12:00:00 AM EST e CW1 ([facility]) Physical Therapy evaluate and treat 05/10/2019 12:00:00 AM EST eCW1 ([facility]) 3 ML Insulin, Aspart, Human 100 UNT/ML Pen Injector [N ovoLog] 05/03/2019 12:00:00 AM EST eCW1 ([facility]) Amlodipine 5 MG Oral Tablet 02/27/2019 12:00:00 AM EST [facility]
[2020-05-18] VITALS (86 sets, daily range): BP systolic 58–134; BP diastolic 37–84
--- OUTSIDE RECORDS SUMMARY | 2020-05-18 00:02 | CCD ---
Author Author [facility] Organization [facility] Address Unknown Phone Unavailable Care Team Providers Care Subsurface Augmentee Operator Name Role Phone Hubert Dyer MD [...] Unavailable Enio, Cathleen PA Unavailable Unavailable MEDENT_23, [id number] Unavailable [phone] [facility], [id number] Unavailable [phone] [facility], [id number] Unavailable [phone] [facility], [id number] Unavailable [phone] [facility], [id number] Unavailable [phone] [facility], [id number] Unavailable [phone] [facility], [id number] Unavailable [phone] [facility], [id number] Unavailable [phone] [facility], [id number] Unavailable [phone] [facility], [id number] Unavailable [phone] [facility], [id number] Unavailable [phone] [facility] Unavailable Hubert Dyer MD [...] is protected by Article 27-F of the [facility] Public Health law. If you continue you may have access to information: Regarding HIV / AIDS; Provided by facilities licensed or operated by the [facility] Office of Mental Health; or Provided by the [facility] Office for People With Developmental Disabilities. If such information is present, then the following [facility] mandated warning applies: This information has [...] law may result in a fine or retirement sentence or both. A general authorization for the release of medical or other information is NOT sufficient authorization for further disc losure. Allergies and Adverse Reactions Type Description Substance Reaction Status Data Source(s ) Drug allergy Penicillins Penicillins Hives [place] [facility] Drug allergy Farxiga dapagliflozin lightheaded, nauseated Active eCW1 ([facility]) Drug allergy Hydrochlorothiazide Hydrochlorothiazide diarrhea Activ e eCW1 ([facility]) Drug allergy Guaifenesin Drug allergy blurry vision Active eCW1 ([facility]) statins statins statins myalgias Active eCW1 ([facility]) Penicillin V-potassium Penicillin V-potassium Penicillin V-potassiu m rash Active eCW1 ([facility]) statins statins statins myalgias Active eCW1 ([facility]) Penicillin V-potassium Penicillin V-potassium Penicillin V-potassiu m rash Active eCW1 ([facility]) statins statins statins myalgias Active eCW1 ([facility]) Penicillin V-potassium Penicillin V-potassium Penicillin V-potassiu m rash Active eCW1 ([facility]) statins statins statins myalgias Active eCW1 ([facility]) Penicillin V-potassium Penicillin V-potassium Penicillin V-potassiu m rash Active eCW1 ([facility]) statins statins statins myalgias Active eCW1 ([facility]) Penicillin V-potassium Penicillin V-potassium Penicillin V-potassiu m rash Active eCW1 ([facility]) Encounters Encounter Providers Location Date Indications Data Source(s ) Unknown [address] [facility] [address] 05/13/2020 12:00:00 AM EST eCW1 ([facility]) Outpatient Attender: Jacqueline Dyer MDConsultant: [id number] 05/08/2020 08:10:00 PM [facility] Inpatient Attender: [phone] MEDENT_ 23Attender: Jordan Brice DOAdmitter: Jordan Brice DO EMERGENCY ROOM-2N 05/02/2020 02:40:00 PM EST - 05/13/2020 10:20:00 AM [facility] Patient discharged. Inpatient Attender: Jacqueline Dyer MDAdmitter: Jacqueline Dyer MD EMERGENCY ROOM-2N 04/29/2020 03:00:00 PM EST - 05/02/2020 02:39:00 PM [facility] Patient discharged. Outpatient Attender: Jacqueline Dyer MDConsultant: [facility] [id number] 04/29/2020 02:50:00 AM [facility] Inpatient Attender: Jacqueline Dyer MDAdmitter: Jacqueline Dyer MD EMERGENCY ROOM-2N 04/15/2020 11:09:00 AM EST - 04/29/2020 02:59:00 PM [facility] Patient discharged. Unknown [address] [facility] [address] 03/12/2020 12:00:00 AM EST eCW1 ([facility]) Out[place] [address] [facility] [address] 03/12/2020 12:00:00 AM EST eCW1 ([facility]) Unknown [address] [facility] [address] 03/03/2020 12:00:00 AM EST eCW1 ([facility]) Unknown [address] [facility] [address] 02/27/2020 12:00:00 AM EST eCW1 ([facility]) Unknown [address] [facility] [address] 02/24/2020 12:00:00 AM EST eCW1 ([facility]) Unknown [address] [facility] [address] 02/12/2020 12:00:00 AM EST eCW1 ([facility]) Out[place] [address] [facility] [address] 02/12/2020 12:00:00 AM EST eCW1 ([facility]) Unknown [address] [facility] [address] 01/23/2020 12:00:00 AM EDT eCW1 ([facility]) Out[place] [address] [facility] [address] 01/06/2020 12:00:00 AM EDT eCW1 ([facility]) Unknown [address] [facility] [address] 01/06/2020 12:00:00 AM EDT eCW1 ([facility]) Unknown [address] [facility] [address] 12/31/2019 12:00:00 AM EDT eCW1 ([facility]) [facility] [place] [address] [facility] [address] 10/17/2019 12:00:00 AM EDT eCW1 ([facility]) Out[place] [address] [facility] [address] 09/12/2019 12:00:00 AM EDT eCW1 ([facility]) Unknown [address] [facility] [address] 09/10/2019 12:00:00 AM EDT eCW1 ([facility]) Unknown [address] [facility] [address] 09/05/2019 12:00:00 AM EDT eCW1 ([facility]) [facility] [address] [place] [address] [place] [address] 08/15/2019 12:00:00 AM EDT eCW1 ([facility]) [facility] [address] [place] [address] [place] [address] 08/14/2019 12:00:00 AM EDT eCW1 ([facility]) [facility] [address] [facility] [address] 08/07/2019 12:00:00 AM EDT eCW1 ([facility]) [address] [place] [address] 07/31/2019 12:00:00 AM EDT eCW1 ([facility]) Outpatient Attender: Cathleen PHAM 07/26/2019 10:14:0 0 AM EDT Lab [facility] Lab [place] [id number] [facility] [address] 07/26/2019 12:00:00 AM EDT eCW1 ([facility]) [address] [place] [address] 07/18/2019 12:00:00 AM EDT eCW1 ([facility]) [facility] [address] [place] [address] [place] [address] 07/18/2019 12:00:00 AM EDT eCW1 ([facility]) [address] [place] [address] 07/17/2019 12:00:00 AM EDT eCW1 ([facility]) [facility] [place] [address] [facility] [address] 07/12/2019 12:00:00 AM EDT eCW1 ([facility]) [facility] [place] [address] [facility] [address] 07/11/2019 12:00:00 AM EDT eCW1 ([facility]) [facility] [place] [address] [facility] [address] 07/09/2019 12:00:00 AM EDT eCW1 ([facility]) [facility] [address] [facility] [address] 07/08/2019 12:00:00 AM EDT eCW1 ([facility]) [facility] [place] [address] [facility] [address] 07/03/2019 12:00:00 AM EDT eCW1 ([facility]) [facility] [place] [address] [facility] [address] 07/03/2019 12:00:00 AM EDT eCW1 ([facility]) [facility] [place] [address] [facility] [address] 06/25/2019 12:00:00 AM EDT eCW1 ([facility]) [facility] [place] [address] [facility] [address] 06/06/2019 12:00:00 AM EDT eCW1 ([facility]) [facility] [place] [address] [facility] [address] 05/31/2019 12:00:00 AM EST eCW1 ([facility]) [facility] [place] [address] [facility] [address] 05/30/2019 12:00:00 AM EST eCW1 ([facility]) [facility] [place] [address] [facility] [address] 05/23/2019 12:00:00 AM EST eCW1 ([facility]) [facility] [place] [address] [facility] [address] 05/17/2019 12:00:00 AM EST eCW1 ([facility]) [facility] [place] [address] [facility] [address] 05/13/2019 12:00:00 AM EST eCW1 ([facility]) [facility] [place] [address] [facility] [address] 05/10/2019 12:00:00 AM EST eCW1 ([facility]) [facility] [address] [facility] [address] 05/08/2019 12:00:00 AM EST eCW1 ([facility]) [facility] [place] [address] [facility] [address] 05/02/2019 12:00:00 AM EST eCW1 ([facility]) [facility] [place] [address] [facility] [address] 04/23/2019 12:00:00 AM EST eCW1 ([facility]) [facility] [place] [address] [facility] [address] 04/23/2019 12:00:00 AM EST eCW1 ([facility]) [facility] [place] [address] [facility] [address] 04/22/2019 12:00:00 AM EST eCW1 ([facility]) Outpatient Attender: Cathleen PHAM 04/16/2019 10:21:0 0 AM EST lab [facility] lab [facility] [place] [address] [place] [address], [place] [address] 04/16/2019 12:00:00 AM EST eCW1 ([facility]) [facility] [place] [address] [place] [address], [place] [address] 04/11/2019 12:00:00 AM EST eCW1 ([facility]) [facility] [place] [address] [facility] [address] 04/09/2019 12:00:00 AM EST eCW1 ([facility]) Outpatient Attender: JESSICA SIMMONS 04/01/2019 12:00:00 A [facility] [place] [address] [facility] [address] 03/28/2019 12:00:00 AM EST eCW1 ([facility]) [facility] [place] [address] [facility] [address] 03/25/2019 12:00:00 AM EST eCW1 ([facility]) Outpatient Attender: JESSICA SIMMONS 03/22/2019 12:00:00 A M [facility] Outpatient 01/25/2018 12:00:00 AM EDT - 01/25/2018 11:59:00 PM EDT ONGOING [employer]IFEL[employer] SERVICE [facility] ONGOING [employer]IFEL[employer] SERVICE Patient discharged. Medications Medication Brand Name Start Date Product Form Dose Route Admi nistrative Instructions Pharmacy Instructions Status Indications Reaction Description Data Source(s) Glucometer UNK 05/13/2019 12:00:00 AM EST active Glucometer eCW1 ([facility]) Glucometer UNK 05/13/2019 12:00:00 AM EST active as directed eCW1 ([facility]) Glucometer UNK 05/13/2019 12:00:00 AM EST active Glucometer eCW1 ([facility]) Glucometer UNK 05/13/2019 12:00:00 AM EST active Glucometer eCW1 ([facility]) Glucometer UNK 05/13/2019 12:00:00 AM EST active as directed eCW1 ([facility]) Glucometer UNK 05/13/2019 12:00:00 AM EST active as directed eCW1 ([facility]) Glucometer UNK 05/13/2019 12:00:00 AM EST active Glucometer eCW1 ([facility]) Glucometer UNK 05/13/2019 12:00:00 AM EST active Glucometer eCW1 ([facility]) Glucometer UNK 05/13/2019 12:00:00 AM EST active Glucometer eCW1 ([facility]) Glucometer UNK 05/13/2019 12:00:00 AM EST active Glucometer eCW1 ([facility]) Glucometer UNK 05/13/2019 12:00:00 AM EST active as directed eCW1 ([facility]) Glucometer UNK 05/13/2019 12:00:00 AM EST active as directed eCW1 ([facility]) Glucometer UNK 05/13/2019 12:00:00 AM EST active Glucometer eCW1 ([facility]) Glucometer UNK 05/13/2019 12:00:00 AM EST active as directed eCW1 ([facility]) Glucometer UNK 05/13/2019 12:00:00 AM EST active as directed eCW1 ([facility]) Glucometer UNK 05/13/2019 12:00:00 AM EST active Glucometer eCW1 ([facility]) Glucometer UNK 05/13/2019 12:00:00 AM EST active Glucometer eCW1 ([facility]) Glucometer UNK 05/13/2019 12:00:00 AM EST active Glucometer eCW1 ([facility]) Glucometer UNK 05/13/2019 12:00:00 AM EST active Glucometer eCW1 ([facility]) Glucometer UNK 05/13/2019 12:00:00 AM EST active Glucometer eCW1 ([facility]) Glucometer UNK 05/13/2019 12:00:00 AM EST active Glucometer eCW1 ([facility]) Glucometer UNK 05/13/2019 12:00:00 AM EST active Glucometer eCW1 ([facility]) Physical Therapy evaluate and treat UNK 05/10/2019 12:00:00 AM EST active mechanical eval & tx eCW1 ([facility]) Physical Therapy evaluate and treat UNK 05/10/2019 12:00:00 AM EST suspended Physical Therapy evaluate and tr eat eCW1 ([facility]) Physical Therapy evaluate and treat UNK 05/10/2019 12:00:00 AM EST suspended Physical Therapy evaluate and tr eat eCW1 ([facility]) Physical Therapy evaluate and treat UNK 05/10/2019 12:00:00 AM EST active Physical Therapy evaluate and tr eat eCW1 ([facility]) Physical Therapy evaluate and treat UNK 05/10/2019 12:00:00 AM EST suspended Physical Therapy evaluate and tr eat eCW1 ([facility]) Physical Therapy evaluate and treat UNK 05/10/2019 12:00:00 AM EST active Physical Therapy evaluate and tr eat eCW1 ([facility]) Physical Therapy evaluate and treat UNK 05/10/2019 12:00:00 AM EST suspended Physical Therapy evaluate and tr eat eCW1 ([facility]) Physical Therapy evaluate and treat UNK 05/10/2019 12:00:00 AM EST active Physical Therapy evaluate and tr eat eCW1 ([facility]) Physical Therapy evaluate and treat UNK 05/10/2019 12:00:00 AM EST active mechanical eval & tx eCW1 ([facility]) Physical Therapy evaluate and treat UNK 05/10/2019 12:00:00 AM EST active mechanical eval & tx eCW1 ([facility]) Physical Therapy evaluate and treat UNK 05/10/2019 12:00:00 AM EST suspended Physical Therapy evaluate and tr eat eCW1 ([facility]) Physical Therapy evaluate and treat UNK 05/10/2019 12:00:00 AM EST active mechanical eval & tx eCW1 ([facility]) Physical Therapy evaluate and treat UNK 05/10/2019 12:00:00 AM EST suspended Physical Therapy evaluate and tr eat eCW1 ([facility]) Physical Therapy evaluate and treat UNK 05/10/2019 12:00:00 AM EST active Physical Therapy evaluate and tr eat eCW1 ([facility]) Physical Therapy evaluate and treat UNK 05/10/2019 12:00:00 AM EST active mechanical eval & tx eCW1 ([facility]) Physical Therapy evaluate and treat UNK 05/10/2019 12:00:00 AM EST active mechanical eval & tx eCW1 ([facility]) Physical Therapy evaluate and treat UNK 05/10/2019 12:00:00 AM EST suspended Physical Therapy evaluate and tr eat eCW1 ([facility]) Physical Therapy evaluate and treat UNK 05/10/2019 12:00:00 AM EST active mechanical eval & tx eCW1 ([facility]) Physical Therapy evaluate and treat UNK 05/10/2019 12:00:00 AM EST suspended Physical Therapy evaluate and tr eat eCW1 ([facility]) Physical Therapy evaluate and treat UNK 05/10/2019 12:00:00 AM EST suspended Physical Therapy evaluate and tr eat eCW1 ([facility]) Physical Therapy evaluate and treat UNK 05/10/2019 12:00:00 AM EST suspended Physical Therapy evaluate and tr eat eCW1 ([facility]) Physical Therapy evaluate and treat UNK 05/10/2019 12:00:00 AM EST active mechanical eval & tx eCW1 ([facility]) Physical Therapy evaluate and treat UNK 05/10/2019 12:00:00 AM EST suspended Physical Therapy evaluate and tr eat eCW1 ([facility]) 3 ML Insulin, Aspart, Human 100 UNT/ML P en Injector [NovoLog] NovoLog Flexpen 100 UNIT/ML NovoLog Flexpen 100 UNIT/ML 05/03/2019 12:00:00 AM EST active NovoLog Flexpen 100 UNIT/ML eCW1 ([facility]) 3 ML Insulin, Aspart, Human 100 UNT/ML P en Injector [NovoLog] NovoLog Flexpen 100 UNIT/ML NovoLog Flexpen 100 UNIT/ML 05/03/2019 12:00:00 AM EST active 6 units eCW1 ([facility]) 3 ML Insulin, Aspart, Human 100 UNT/ML P en Injector [NovoLog] NovoLog Flexpen 100 UNIT/ML NovoLog Flexpen 100 UNIT/ML 05/03/2019 12:00:00 AM EST active 6 units eCW1 ([facility]) 3 ML Insulin, Aspart, Human 100 UNT/ML P en Injector [NovoLog] NovoLog Flexpen 100 UNIT/ML NovoLog Flexpen 100 UNIT/ML 05/03/2019 12:00:00 AM EST active 6 units eCW1 ([facility]) 3 ML Insulin, Aspart, Human 100 UNT/ML P en Injector [NovoLog] NovoLog Flexpen 100 UNIT/ML NovoLog Flexpen 100 UNIT/ML 05/03/2019 12:00:00 AM EST active NovoLog Flexpen 100 UNIT/ML eCW1 ([facility]) 3 ML Insulin, Aspart, Human 100 UNT/ML P en Injector [NovoLog] NovoLog Flexpen 100 UNIT/ML NovoLog Flexpen 100 UNIT/ML 05/03/2019 12:00:00 AM EST active NovoLog Flexpen 100 UNIT/ML eCW1 ([facility]) 3 ML Insulin, Aspart, Human 100 UNT/ML P en Injector [NovoLog] NovoLog Flexpen 100 UNIT/ML NovoLog Flexpen 100 UNIT/ML 05/03/2019 12:00:00 AM EST active NovoLog Flexpen 100 UNIT/ML eCW1 ([facility]) 3 ML Insulin, Aspart, Human 100 UNT/ML P en Injector [NovoLog] NovoLog Flexpen 100 UNIT/ML NovoLog Flexpen 100 UNIT/ML 05/03/2019 12:00:00 AM EST active NovoLog Flexpen 100 UNIT/ML eCW1 ([facility]) 3 ML Insulin, Aspart, Human 100 UNT/ML P en Injector [NovoLog] NovoLog Flexpen 100 UNIT/ML NovoLog Flexpen 100 UNIT/ML 05/03/2019 12:00:00 AM EST active 6 units eCW1 ([facility]) 3 ML Insulin, Aspart, Human 100 UNT/ML P en Injector [NovoLog] NovoLog Flexpen 100 UNIT/ML NovoLog Flexpen 100 UNIT/ML 05/03/2019 12:00:00 AM EST active 6 units eCW1 ([facility]) 3 ML Insulin, Aspart, Human 100 UNT/ML P en Injector [NovoLog] NovoLog Flexpen 100 UNIT/ML NovoLog Flexpen 100 UNIT/ML 05/03/2019 12:00:00 AM EST active NovoLog Flexpen 100 UNIT/ML eCW1 ([facility]) 3 ML Insulin, Aspart, Human 100 UNT/ML P en Injector [NovoLog] NovoLog Flexpen 100 UNIT/ML NovoLog Flexpen 100 UNIT/ML 05/03/2019 12:00:00 AM EST active NovoLog Flexpen 100 UNIT/ML eCW1 ([facility]) 3 ML Insulin, Aspart, Human 100 UNT/ML P en Injector [NovoLog] NovoLog Flexpen 100 UNIT/ML NovoLog Flexpen 100 UNIT/ML 05/03/2019 12:00:00 AM EST active NovoLog Flexpen 100 UNIT/ML eCW1 ([facility]) 3 ML Insulin, Aspart, Human 100 UNT/ML P en Injector [NovoLog] NovoLog Flexpen 100 UNIT/ML NovoLog Flexpen 100 UNIT/ML 05/03/2019 12:00:00 AM EST active NovoLog Flexpen 100 UNIT/ML eCW1 ([facility]) 3 ML Insulin, Aspart, Human 100 UNT/ML P en Injector [NovoLog] NovoLog Flexpen 100 UNIT/ML NovoLog Flexpen 100 UNIT/ML 05/03/2019 12:00:00 AM EST active NovoLog Flexpen 100 UNIT/ML eCW1 ([facility]) 3 ML Insulin, Aspart, Human 100 UNT/ML P en Injector [NovoLog] NovoLog Flexpen 100 UNIT/ML NovoLog Flexpen 100 UNIT/ML 05/03/2019 12:00:00 AM EST active NovoLog Flexpen 100 UNIT/ML eCW1 ([facility]) 3 ML Insulin, Aspart, Human 100 UNT/ML P en Injector [NovoLog] NovoLog Flexpen 100 UNIT/ML NovoLog Flexpen 100 UNIT/ML 05/03/2019 12:00:00 AM EST active NovoLog Flexpen 100 UNIT/ML eCW1 ([facility]) 3 ML Insulin, Aspart, Human 100 UNT/ML P en Injector [NovoLog] NovoLog Flexpen 100 UNIT/ML NovoLog Flexpen 100 UNIT/ML 05/03/2019 12:00:00 AM EST active 6 units eCW1 ([facility]) 3 ML Insulin, Aspart, Human 100 UNT/ML P en Injector [NovoLog] NovoLog Flexpen 100 UNIT/ML NovoLog Flexpen 100 UNIT/ML 05/03/2019 12:00:00 AM EST active NovoLog Flexpen 100 UNIT/ML eCW1 ([facility]) 3 ML Insulin, Aspart, Human 100 UNT/ML P en Injector [NovoLog] NovoLog Flexpen 100 UNIT/ML NovoLog Flexpen 100 UNIT/ML 05/03/2019 12:00:00 AM EST active 6 units eCW1 ([facility]) 3 ML Insulin, Aspart, Human 100 UNT/ML P en Injector [NovoLog] NovoLog Flexpen 100 UNIT/ML NovoLog Flexpen 100 UNIT/ML 05/03/2019 12:00:00 AM EST active NovoLog Flexpen 100 UNIT/ML eCW1 ([facility]) 3 ML Insulin, Aspart, Human 100 UNT/ML P en Injector [NovoLog] NovoLog Flexpen 100 UNIT/ML NovoLog Flexpen 100 UNIT/ML 05/03/2019 12:00:00 AM EST active NovoLog Flexpen 100 UNIT/ML eCW1 ([facility]) 3 ML Insulin, Aspart, Human 100 UNT/ML P en Injector [NovoLog] NovoLog Flexpen 100 UNIT/ML NovoLog Flexpen 100 UNIT/ML 05/03/2019 12:00:00 AM EST active 6 units eCW1 ([facility]) Amlodipine 5 MG Oral Tablet amLODIPine Besylate 5 MG O ral Tablet (NORVASC) amLODIPine Besylate 5 MG Oral Tablet (NORVASC) 02/27/2019 12:00:00 AM EST 5 mg Oral active Take 1 tablet by mouth d [facility] Insurance Providers Payer name Policy type / Coverage type Policy ID Covered alliance party ID Covered alliance party's relationship to brown Policy Brown Plan Information HUMANA GOLD [id number] SP [id number] HUMANA GOLD CLASSIC [id number] S [id number] [place] [id number] SP [id number] [facility] MEDICARE [id number] SP [id number] [facility] [place] [id number] SP [id number] HUMANA GOLD [id number] SP [id number] MEDICAID M [id number] Self [id number] [id number] UNITED MEDICARE DUAL G [id number] Self [id number] SELF PAY MEDICAID [facility] [id number] SP [id number] HUMANA MEDICARE ADV [id number] SP [id number] MEDICAID [id number] SP [id number] [place] MEDICARE ADV [id number] SP [id number] SELF PAY [facility] [id number] SP [id number] MEDICARE [id number] SP [id number] MEDICARE [id number] SP [id number] [employer] MGD MEDICARE [id number] SP [id number] [employer]ARE(MCAID) O [id number] S [id number] MEDICAID M [id number] S [id number] SELF PAY [employer] MGD MEDICARE [id number] SP [id number] UNITED [employer](MCAID) O [id number] S [id number] SELF PAY MEDICAID [facility] [id number] SP [id number] [facility] ( O) 01v90l3a-0272-66a3-a150-v03918844r1e 58y63o4r-0430-96q2-r451-u99920570z2g ANSI-Medicaid [id number] ANSI-Medicare Part B [id number] ANSI-Not a Secondary Insurance jda6r47k-19kf-84o4-1tsa-b1h21 qj9ezlo qbv8b02w-77qr-03j4-3tpf-m4h86ru2sezh ANSI-Medicare Part B [id number]-[id number] ANSI-Not a Secondary Insurance uy8290bv-u6z7-2f33-r1sn-508l3 28373h7 xd3828td-p3t2-2k66-m4xh-712w475090j1 ANSI-Health Maintenance Organization (HM O) 568b17w9-7l6i-4i71-t48w-23196542g8k0 952r10d5-1i9j-4n33-z12h-48914025w2a0 ANSI-Medicaid [id number] ANSI-Not a Secondary Insurance [id number]-729b-ik30-5l0c8 0zy24l2 9h701611-46sp-382d-kb01-6i8m23ev55m9 ANSI-Health Maintenance Organization ( O) 5iz39l05-24tv-9215-p2z7-k969vq37oh90 6wp44x50-96ja-5429-u0c9-l047un61yh71 ANSI-Medicare Part B [id number]-x2t1-6g45-155i-[id number] ANSI-Medicaid [id number] ANSI-Medicare Part B [id number] ANSI-Medicaid [id number]-[id number] ANSI-Not a Secondary Insurance 882565u7-7m39-8749-k4kn-13sw9 968n35t 051390h9-1z69-2226-q9ws-23se1053k30e ANSI-Health Maintenance Organization ( O) 58g3a83r-26o6-5767-6676-k21x6lafg832 43b8j04v-34g2-3404-0610-y36i3vuar436 ANSI-Health Maintenance Organization ( O) 6te34aj0-j685-9467-y520-3u8pa26ea488 6gv08fw6-x577-4769-r760-7w1eu97rt262 ANSI-Medicare Part B [id number] ANSI-Medicaid [id number]-[id number]-[id number] ANSI-Not a Secondary Insurance e8k4m3w9-6f41-86h6-txld-1vq84 0pi96gk y3e1k9p2-6x41-89y3-fooq-2ys366js87uu [employer] [id number] SP [id number] [place] [employer]IONS [id number] SP [id number] [facility] [id number] SP [id number] [facility] [id number] SP [id number] ANSI-Health Maintenance Organization (HM O) n8b88t4i-94l9-4y14-4f5r-j223eq62g82o k7j45o5y-57m3-7h76-0x6m-z731vk38j76x ANSI-Medicaid [id number] ANSI-Medicare Part B [id number]-[id number] ANSI-Not a Secondary Insurance scek75x8-57c9-12tm-0337-q00g1 62gvq98 adkh15p2-32u3-51ri-0944-w42o531hiy47 ANSI-Medicare Part B [id number] [id number]-ffdw-15k4-[id number] ANSI-Health Maintenance Organization (HM O) 8452r063-kqz9-1l52-05t4-3ar11d257p05 9614i727-fxf2-6s72-48w9-1pv20x293e98 ANSI-Not a Secondary Insurance xn7j0c87-x980-164h-m597-28018 665817q an8e4x14-u928-042i-c454-71647642793w ANSI-Medicaid [id number] ANSI-Medicaid [id number] ANSI-Health Maintenance Organization ( O) q3385l1l-0xa5-6ovw-k311-2l51aol6fu01 f9788o4m-0iz8-6jsm-x072-4k43gep7hp12 ANSI-Not a Secondary Insurance quebl1u8-6459-449i-72h4-b121h 6595m03 iquog3n6-9583-658e-17n5-r213b2960i73 ANSI-Medicare Part B [id number]-607i-398u-t98m-s6nrqj5e08h9 ANSI-Medicare Part B [id number] bncr2m7t-x64o-1506-n952-87948wl5us9i ANSI-Health Maintenance Organization ( O) tkq63z80-5655-37x8-mure-qd18sp83f6l2 qmf39f30-0552-13q2-ppux-lg34kj36n7b8 ANSI-Not a Secondary Insurance 126y8v64-k489-7q68-086b-47b81 f092gb7 436s4b20-t764-0s37-207z-87p19n983nb4 ANSI-Medicaid [id number] ANSI-Health Maintenance Organization (HM O) 205t9452-0p02-6v33-14wj-83td29132941 497i0147-3f30-1h96-73ya-72rc80178402 ANSI-Medicare Part B [id number]-[id number] ANSI-Medicaid [id number] ANSI-Not a Secondary Insurance 22908f52-2121-22m2-4dp3-66041 s9gb628 71309s99-0188-97y5-4oq7-07081s5hm563 ANSI-Medicaid [id number]-[id number] ANSI-Medicare Part B [id number] 37pf14j8-i92z-975x-0zc3-exlh3mmcb4r2 ANSI-Not a Secondary Insurance 914t7c06-72u2-7056-0764-z5942 h1ki2d6 714r0y82-33a2-7249-7291-q6924p5yw5e1 ANSI-Health Maintenance Organization ( O) x698offm-9hnn-61rb-pg2y-b0293o981l8a a019yvoh-0rcv-96zv-kc5z-f5589t863a4u Medicaid of [place] Other 0 Self 0 [facility] Other 0 Self 0 ANSI-Medicare Part B [id number] ANSI-Health Maintenance Organization ( O) h685e733-7wzv-43rl-78g9-79h644z9qq18 e626e464-7tfl-79dn-87w9-87a839i4te34 ANSI-Medicaid [id number]-n1ar-[id number] ANSI-Not a Secondary Insurance 9c1d23bz-h377-85ur-u1ml-30z10 8m32433 9v3o64qc-f875-99mx-f6gp-39t633a03008 ANSI-Not a Secondary Insurance r2146qym-uu4m-8020-l72s-mz603 95g50z4 x5091qvz-ua0i-9403-a06h-dv06402r94e4 ANSI-Health Maintenance Organization ( O) [id number]-1616-205l-298a64x31839 09603105-6x3s-7287-783e-985w53r78122 ANSI-Medicare Part B [id number] ANSI-Medicaid [id number]-4t03-f0n5-s7l2er3lov7i ANSI-Medicaid [id number]-d0v6-8w9b-27po-[id number] ANSI-Health Maintenance Organization ( O) n180e1xd-53b5-5528-9547-5m437549cj27 h659v9rv-89y4-1962-8519-7y742817nm42 ANSI-Not a Secondary Insurance 21a3804k-3211-5804-wr69-vzn6l 991x89p 11g4571n-1410-3890-cs80-keu0l120n54m ANSI-Health Maintenance Organization ( O) c070u0u8-fm68-7549-0isi-2266962583w9 w429s8f8-yj07-7693-5uue-5350941105h6 ANSI-Not a Secondary Insurance 68841a11-r160-02if-60uf-045dy 5866nv5 19123p98-l742-44zy-05fg-228jy5113hs0 ANSI-Medicaid [id number]-55a9-0103-[id number] ANSI-Not a Secondary Insurance 0cf05448-hc0n-76d7-qld9-33466 1216z72 5bp51726-fn9c-94f6-uqc1-607849852y76 ANSI-Health Maintenance Organization ( O) 8o9gy4d6-6hc1-7vm2-3872-12dl142ft5m2 2m2ok0d5-0vc0-7cc5-3491-07bs678pz7e2 ANSI-Medicaid [id number]-6b06-c486-7y023k8vs6oa ANSI-Medicaid [id number] 70uep4vb-52y0-1u43-[id number] ANSI-Not a Secondary Insurance 81n5v7g9-7s13-0u6i-p3yo-85651 r8y825v 12w6i2v7-5z37-3i8p-q8cr-91461g2g614h ANSI-Medicaid [id number]-[id number] ANSI-Not a Secondary Insurance 5709ilk0-o020-4j9d-087u-3mmi6 3yi28m0 7735fyv3-j745-0r8r-187d-9ryw35gj76p0 ANSI-Not a Secondary Insurance 452mn8o4-j1o5-48em-5091-23ai5 75j8p11 577he6q7-e2b1-05kb-6820-81uv543o1z72 ANSI-Medicaid [id number]-d45z-[id number] ANSI-Not a Secondary Insurance s087u092-c1lu-4r23-u863-72522 jq2y2n5 p062v149-g5ei-9b13-z279-39098kv2d4k9 ANSI-Medicaid [id number] ANSI-Medicaid [id number] ANSI-Not a Secondary Insurance 11g32p35-2473-074h-0qg7-5v95j 526kd56 49e43t94-9299-632w-3sg1-4b50z964zq93 SELF PAY MEDICAID [facility] [id number] ANSI-Medicaid [id number] ANSI-Not a Secondary Insurance 779jm1qh-w208-57k2-1yu3-t85x1 87579r1 234in2xj-t704-49s4-7ab2-y83p005323r1 ANSI-Not a Secondary Insurance 950t7d67-527d-0099-l0m9-yx4wi 674g073 032x0u15-734j-5422-m1s2-df4qg401n598 ANSI-Medicaid [id number]-818n-[id number] ANSI-Medicaid [id number]-[id number] ANSI-Health Maintenance Organization ( O) 4ph1q872-up5k-566o-5947-58x1152k662e 6kq2t817-zv5i-628j-0485-30z4201d046w ANSI-Health Maintenance Organization ( O) n0q8j8v3-0ay9-935a-312c-2q6pb89446jy e8o3b3f9-4zb7-791v-471m-8c3hl67523kx ANSI-Medicaid [id number]-2x74-62rb-[id number] ANSI-Health Maintenance Organization ( O) 8l3c856c-1mj0-51o8-4w20-vb5y76935g7j 3s6r571m-2ml9-69a8-2c05-hw1x17363z0m ANSI-Medicaid [id number]-7276-l51j-[id number] ANSI-Health Maintenance Organization ( O) [id number]-t5n0-899a-8g5j-q736q8352319 99224424-i0m1-238s-3x3c-j624d3312529 ANSI-Medicaid [id number]-[id number] ANSI-Health Maintenance Organization ( O) 7yxl1xjb-z374-2m00-qd4w-1r6s427j6103 6alv2nrj-j093-5v98-bv2d-9g0d238p1694 ANSI-Medicaid [id number]-[id number] ANSI-Medicaid [id number] ANSI-Health Maintenance Organization ( O) q9e20363-2119-1915-8084-98640jh030a6 y6j46288-4844-2074-3740-14515gj364u8 ANSI-Medicare Part B [id number]-[id number]-sh40ao3luhu0 ANSI-Medicaid [id number] [facility] i5094d44-qdd8-6058-7ksp-88p4s2m20514 u0706n44-dwq6-5021-8zki-19t8c8y00213 ANSI-Medicaid [id number] 26auufme-08v1-00sb27b1-46ki-68k7-34rl895v729g ANSI-Medicare Part B [id number] 8moyn42n-7ea3-7xu1-xm09-fyp08g0a8794 ANSI-Medicaid [id number] ANSI-Medicare Part B [id number] ANSI-Medicaid [id number] 0xq1[id number] ANSI-Medicaid [id number]-z0d3-72iv-626s-[id number] ANSI-Medicare Part B [id number]-14iz-66lu-c019-hri6ae8p50zs ANSI-Medicaid [id number] ANSI-Medicare Part B [id number]-w7t6-0r2c-0e5z-5764qj21rgm1 ANSI-Medicare Part B [id number]-r2qd-3246-b9s8-8m2vt30p7336 ANSI-Medicaid [id number]-[id number] ANSI-Medicare Part B [id number] ANSI-Medicaid [id number]-jc9z-[id number]-[id number] ANSI-Medicare Part B [id number]-340m-1e4f-h2505hjbp563 ANSI-Medicaid [id number]-[id number] ANSI-Medicare Part B [id number] ANSI-Medicaid [id number] 8fna5vyx-079o-3x3c-1i8w-w8e98wm513l3 ANSI-Medicare Part B [id number]-511d-[id number] ANSI-Medicaid [id number]-tpy0-4743-bii4-brep1x26g31b ANSI-Medicare Part B [id number] ANSI-Medicaid [id number] ANSI-Medicaid [id number]-[id number] ANSI-Medicare Part B [id number] ANSI-Medicaid [id number]-[id number] ANSI-Medicare Part B [id number]-[id number] [employer] MCR [id number] SP 1 [id number] MEDICAID [facility] [id number] SP [id number] ANSI-Medicaid [id number] ANSI-Medicare Part B [id number] ANSI-Medicaid [id number] ANSI-Medicare Part B [id number] ANSI-Medicaid [id number] ANSI-Medicare Part B [id number] [employer] MCR [id number] SP 1 [id number] ANSI-Medicare Part B [id number] ANSI-Medicaid [id number] MEDICAID [facility] [id number] SP [id number] ANSI-Medicare Part B [id number] ANSI-Medicaid [id number] MEDICARE [id number] SP [id number] A [employer] [id number] SP [id number] ANSI-Medicare Part B [id number] ANSI-Medicaid [id number] [place] of [place] Other 0 Self 0 Medicare Part A [facility] Other 0 Self 0 MEDICARE [id number] SP [id number] ANSI-Medicaid [id number] ANSI-Medicare Part B [id number] ANSI-Medicaid [id number] ANSI-Medicare Part B [id number] ANSI-Medicaid [id number] ANSI-Medicare Part B [id number] ANSI-Medicare Part B [id number] [facility]-Medicaid [id number] [facility]-Medicare Part B [id number] [facility]-Medicaid [id number] Medicaid - [employer] [id number] Medica id [id number] ID IDENTIFICATION [id number] Other In surance .[id number] [employer] [id number] Commercial Insurance [id number] [employer]/[place] O [id number] O [id number] MEDICARE COMPLETE [id number] SP [id number] MEDICARE COMPLETE [id number] SP [id number] MEDICARE COMPLETE UNAVAILABLE SP UNAVAILABLE [facility] [id number] SP [id number] MEDICARE [id number] SP [id number] A Medicare [facility] Medicare Primary Self Medicare [facility] Medicare Primary Self MEDICAID [facility] UNAVAILABLE SP UNAVAILABLE MEDICARE [id number] SP [id number] Problems, Conditions, and Diagnoses Code Display Name Description Problem Type Effective Dates Data Source(s) F41.8 799238243 Anxiety about health Problem 07/03/2019 12:0 0:00 AM EDT eCW1 ([facility]) F41.8 [id number] Anxiety about health Problem 07/03/2019 12:0 0:00 AM EDT eCW1 ([facility]) I62.9 [id number] Intracranial hemorrhage Problem 04/11/2019 1 2:00:00 AM EST eCW1 ([facility]) I62.9 [id number] Intracranial hemorrhage Problem 04/11/2019 1 2:00:00 AM [facility] ([facility]) Z66 Do not resuscitate DO NOT RESUSCITATE Diagnosis 02:40:00 PM [facility] Z90.89 Acquired absence of other organs ACQUIRED ABSENC E OF OTHER ORGANS Diagnosis 05/02/2020 02:40:00 PM [facility] Z87.39 Personal history of other di seases of the musculoskeletal system and connective tissue PERSONAL HISTORY OF DISEASES OF THE MS SYS AND CON Diagnosis 05/02/2020 02:40:00 PM [facility] Z89.511 Acquired absence of right leg below knee ACQUIRED ABSENCE OF RIGHT LEG BELOW KNEE Diagnosis 05/02/2020 02:40:00 PM [facility] Z79.82 emt intermediate (current) use of aspirin JAIL (CU RRENT) USE OF ASPIRIN Diagnosis 05/02/2020 02:40:00 PM [facility] Z79.4 care 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 Diagnosis 05/02/2020 02:40:00 PM [facility] G31.9 Degenerative disease of nervous system, unspecified DEGENERATIVE DISEASE OF NERVOUS SYSTEM, UNSPECIFIE Diagnosis 05/02/2020 02:40:00 PM [facility] J44.9 Chronic obstructive pulmonary disease, u nspecified CHRONIC OBSTRUCTIVE PULMONARY DISEASE, UNSPECIFIED Diagnosis 05/02/2020 02:40:00 PM [facility] E61.1 Iron deficiency IRON DEFICIENCY Diagnosis 05/02/2020 02:4 0:00 PM [facility] F41.9 Anxiety disorder, unspecified ANXIETY DISORDER, UNSPEC IFIED Diagnosis 05/02/2020 02:40:00 PM [facility] R79.89 Other specified abnormal findings of blo od chemistry OTHER SPECIFIED ABNORMAL FINDINGS OF BLOOD AIR[employer]OR[employer] ELECT[employer]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 Diagnosis 05/02/2020 02:40:00 PM [facility] E87.6 Hypokalemia HYPOKALEMIA Diagnosis 05/02/2020 02:40:00 PM [facility] E83.42 Hypomagnesemia HYPOMAGNESEMIA Diagnosis 05/02/2020 02:40: 00 PM [facility] B37.2 Candidiasis of skin and nail CANDIDIASIS OF SKIN AND N AIL Diagnosis 05/02/2020 02:40:00 PM [facility] E55.9 Vitamin D deficiency, unspecified VITAMIN D DEFI CIENCY, UNSPECIFIED Diagnosis 05/02/2020 02:40:00 PM [facility] F43.20 Adjustment disorder, unspecified ADJUSTMENT DISO RDER, UNSPECIFIED Diagnosis 05/02/2020 02:40:00 PM [facility] H40.9 Unspecified glaucoma UNSPECIFIED GLAUCOMA Diagnosis 05/02/2020 02:40:00 PM [facility] K21.9 Gastro-esophageal reflux disease without esophagitis GASTRO-ESOPHAGEAL REFLUX DISEASE WITHOUT ESOPHAGIT Diagnosis 05/02/2020 02:40:00 PM [facility] E78.5 Hyperlipidemia, unspecified HYPERLIPIDEMIA, UNSPECIFIE D Diagnosis 05/02/2020 02:40:00 PM [facility] I13.10 Hypertensive heart and chron ic kidney disease without heart failure, with stage 1 through stage 4 chronic kidney disease, or unspecified chronic kidney disease HYP HRT CHR KDNY DIS W/O HRT FAIL, W STG 1-4/UNS Diagnosis 05/02/2020 02:40:00 PM [facility] I73.9 Peripheral vascular disease, unspecified PERIPHERAL VASCULAR DISEASE, UNSPECIFIED Diagnosis 05/02/2020 [facility]40[facility] E11.8 Type 2 diabetes mellitus with unspecifie d complications TYPE 2 DIABETES MELLITUS WITH UNSPECIFIED COMPLICA Diagnosis 05/02/2020 02:40:00 PM [facility] E87.8 Other disorders of electroly te and fluid balance, not elsewhere classified OTH DISORDERS OF ELECTROLYTE AND FLUID BALANCE, NE Diagnosis 05/02/2020 02:40:00 PM [facility] D64.9 Anemia, unspecified ANEMIA, UNSPECIFIED Diagnosis 0 05/02/2020 02:40:00 PM [facility] R79.82 Elevated C-reactive protein (CRP) ELEVATED C-YOLETTE CTIVE PROTEIN (CRP) Diagnosis 05/02/2020 02:40:00 PM [facility] N18.2 Chronic kidney disease, stage 2 (mild) C HRONIC KIDNEY DISEASE, STAGE 2 (MILD) Diagnosis 05/02/2020 02:40:00 [facility] A04.72 ENTEROCOLITIS D/T CLOSTRIDIUM DIFFICILE, NOT SPCF ENTEROCOLITIS D/T CLOSTRIDIUM DIFFICILE, NOT SPCF Diagnosis 05/02/2020 02:40:00 PM [facility] Z89.512 Acquired absence of left leg below knee ACQUIRED ABSENCE OF LEFT LEG BELOW KNEE Diagnosis 05/02/2020 02:40:00 PM [facility] E87.1 Hypo-osmolality and hyponatremia HYPO-OSMOLALITY AND HYPONATREMIA Diagnosis 05/02/2020 02:40:00 PM [facility] E43 Unspecified severe protein-calorie malnu trition UNSPECIFIED SEVERE PROTEIN- CALORIE MALNUTRITION Diagnosis 05/02/2020 02:40:[facility] R26.89 Other abnormalities of gait and mobility OTHER ABNORMALITIES OF GAIT AND MOBILITY Diagnosis 05/02/2020 02:40:00 PM [facility] R26.2 Difficulty in walking, not elsewhere cla ssified DIFFICULTY IN WALKING, NOT ELSEWHERE CLASSIFIED Diagnosis 04/29/2020 03:00:00 PM [facility] N18.9 Chronic kidney disease, unspecified CHRONIC KIDN EY DISEASE, UNSPECIFIED Diagnosis 04/29/2020 03:00:00 PM [facility] E86.0 Dehydration DEHYDRATION Diagnosis 04/29/2020 03:00:00 PM [facility] F32.9 Major depressive disorder, single episod e, unspecified MAJOR DEPRESSIVE DISORDER, SINGLE EPISODE, UNSPECI Diagnosis 04/29/2020 03:00:00 PM [facility] D50.9 Iron deficiency anemia, unspecified IRON DEFICIE NCY ANEMIA, UNSPECIFIED Diagnosis 04/29/2020 03:00:00 PM [facility] B37.9 Candidiasis, unspecified CANDIDIASIS, UNSPECIFIED Diag nosis 04/29/2020 03:00:00 PM [facility] I12.9 Hypertensive chronic kidney disease with stage 1 through stage 4 chronic kidney disease, or unspecified chronic kidney disease HYPERTENSIVE CHRONIC KIDNEY DISEASE W STG 1-4/UNSP Diagnosis 04/29/2020 03:00:00 PM [facility] E11.51 Type 2 diabetes mellitus wit h diabetic peripheral angiopathy without gangrene TYPE 2 DIABETES W DIABETIC PERIPHERAL ANGIOPATH W/ Diagnosis 04/29/2020 03:00:00 PM [facility] Z98.890 OTHER SPECIFIED POSTPROCEDURAL STATES OT HER SPECIFIED POSTPROCEDURAL STATES Diagnosis 04/29/2020 03:00:00 PM [facility] A41.9 Sepsis, unspecified organism SEPSIS, UNSPECIFIED ORGAN ISM Diagnosis 04/29/2020 03:00:00 PM [facility] N17.9 Acute kidney failure, unspecified ACUTE KIDNEY F AILURE, UNSPECIFIED Diagnosis 04/29/2020 03:00:00 PM [facility] M86.10 Other acute osteomyelitis, unspecified s ite OTHER ACUTE OSTEOMYELITIS, UNSPECIFIED SITE Diagnosis 04/29/2020 03:00:00 PM [facility] R50.9 Fever, unspecified FEVER, UNSPECIFIED Diagnosis 11:09:00 AM [facility] R19.7 Diarrhea, unspecified DIARRHEA, UNSPECIFIED Diagnosis 04/15/2020 11:09:00 AM [facility] Z86.39 Personal history of other endocrine, nut ritional and metabolic disease PERSONAL HISTORY OF ENDO, NUTRITIONAL AND METABOLI Diagnosis 11:09:00 [facility] K21.00 GASTRO-ESOPHAGEAL REFLUX DIS WITH ESOPHA GITIS, WIT GASTRO-ESOPHAGEAL REFLUX DIS WITH ESOPHAGITIS, WIT Diagnosis 04/15/2020 11:09:00 [facility] J42 Unspecified chronic bronchitis UNSPECIFIED CHRONIC BRO NCHITIS Diagnosis 04/15/2020 11:09:00 [facility] E78.2 Mixed hyperlipidemia MIXED HYPERLIPIDEMIA Diagnosis 04/15/2020 11:09:00 [facility] I11.9 Hypertensive heart disease without heart failure HYPERTENSIVE HEART DISEASE WITHOUT HEART FAILURE Diagnosis 04/15/2020 11:09:00 AM [facility] M86.9 Osteomyelitis, unspecified OSTEOMYELITIS, UNSPECIFIED Diagnosis 04/15/2020 11:09:00 AM [facility] R53.81 Other malaise OTHER MALAISE Diagnosis 04/15/2020 11:09:00 AM [facility] E78.1 Pure hyperglyceridemia E78.1 - Pure hyperglyceridemia Diagnosis 07/26/2019 10:14:00 AM [facility] Surgeries/Procedures Procedure Description Date Indications Data Source(s) Introduction of Insulin into Subcutaneous Tissue, Percutaneo us Approach 05/02/2020 12:00:00 AM [facility] Introduction of Other Therapeutic Substa nce into Peripheral Vein, Percutaneous Approach 05/02/2020 12:00:00 [facility] Introduction of Anti-inflammatory into R espiratory Tract, Via Natural or Artificial Opening 05/02/2020 12:00:00 AM [facility] Muscle Performance Treatment of Musculoskeletal System - Who le Body 05/02/2020 12:00:00 AM [facility] Introduction of Other Anti-infective int o Peripheral Vein, Percutaneous Approach 04/29/2020 12:00:00 AM [facility] CHRON CARE MGMT SRVC 20 MIN 08/14/2019 12:00:00 AM EDT eCW1 ([facility]) PHYSICIAN TELEPHONE EVALUATION 21-30 MIN 07/18/2019 12 :00:00 AM EDT eCW1 ([facility]) Office Visit, Est Pt., Level 3 PC 07/12/2019 12:00:00 AM EDT eCW1 ([facility]) HOME V, EP EXPANDED 05/02/2019 12:00:00 AM EST eCW1 ([facility]) TRANS CARE MGMT 7 DAY DISCH 03/28/2019 12:00:00 AM EST eCW1 ([facility]) Results ID Date Data Source [id number] 05/13/2020 09:59:00 AM [facility] l In-Patient NoteNote:LABORATORY TEST RX: Dx Hyponatremia Hyperkalemia OBTAIN BEFORE 05/16/2020 PCP tel [phone] CBC with [id number] Name Value Range Interpretation Code Description Data Marcela rce(s) Supporting Document(s) ID Date Data Source [id number] 05/11/2020 10:18:00 AM [facility] l DATE OF EXAMINATION: 05/11/2020 9:33 EST [...] rce(s) Supporting Document(s) ID Date Data Source [id number] 05/12/2020 10:05:00 AM EST [facility] Name Value Range Interpretation Code Description Data Marcela rce(s) Supporting Document(s) Cortisol 17.8 ug/dL [facility] C ortisol AM 6.2 - 19.4 Cortisol PM 2.3 - 11.9 ID Date Data Source [id number] 05/11/2020 07:29:00 AM [facility] Name Value Range Interpretation Code Description Data Marcela rce(s) Supporting Document(s) GLUCOSE 155 mg/dL 74-106 H [facility] BLOOD UREA NITROGEN 35 mg/dL 7-18 H [facility] ital CREATININE 1.44 mg/dL 0.7-1.3 H [facility] SODIUM 124 mmol/L 136-145 L [facility] POTASSIUM 5.0 mmol/L 3.5-5.1 [facility] CHLORIDE 92 mmol/L 98-107 L [facility] CO2 29 mmol/L 21-32 [facility] CALCIUM 8.4 mg/dL 8.5-10.1 L [facility] ANION GAP 3.0 mmol/L 5-12 L [facility] GLOMERULAR FILTRATION RATE 48 mL/min [facility] GFR IS CALCULATED IN mL/min/1.73m2 ROBERT L FUNCTION: >90MILDLY DECREASED: 60-89MILDY TO MODERATELY DECREASED: 45-59 MODERATELY TO SEVERELY DECREASED: 30-44SEVERELY DECREASED: 15-29RENAL FAILURE: <15 AST 13 U/L 15-37 L [facility] ALT 16 U/L 12-78 [facility] ALKALINE PHOSPHATASE 56 U/L 46-116 [facility] pital TOTAL BILIRUBIN 0.2 mg/dL 0.2-1.0 [facility] TOTAL PROTEIN 6.3 g/dl 6.4-8.2 L [facility] ALBUMIN 2.9 gm/dL 3.4-5.0 L [facility] ID Date Data Source [id number] 05/11/2020 07:29:00 AM [facility] l Name Value Range Interpretation Code Description Data Marcela rce(s) Supporting Document(s) MAGNESIUM 1.9 mg/dL 1.8-2.4 [facility] ID Date Data Source [id number] 05/11/2020 07:20:00 AM [facility] l Name Value Range Interpretation Code Description Data Marcela rce(s) Supporting Document(s) PROTHROMBIN TIME (PATIENT) 9.8 SECONDS 9.1-11.6 [facility] INR 0.94 0.87-1.06 [facility] ID Date Data Source [id number] 05/11/2020 07:08:00 AM [facility] Name Value Range Interpretation Code Description Data Marcela rce(s) Supporting Document(s) WHITE BLOOD COUNT 9.1 K/mm3 4.0-10.0 [facility] RED BLOOD COUNT 3.82 M/mm3 4.50-6.00 L [facility] HEMOGLOBIN 11.1 gm/dL 14.0-18.0 [facility] HEMATOCRIT 32.6 % 42.0-54.0 [facility] MEAN CELL VOLUME 85.3 fl 80-96 [facility] MEAN CORPUSCULAR HEMOGLOBIN 29.1 pg 27.0-31.0 [facility] MEAN CORPUSCULAR HGB CONC 34.0 g/dl 32.0-36.0 [facility] RED CELL DISTRIBUTION WIDTH 14.2 % 10.0-14.5 [facility] PLATELET COUNT 409 K/mm3 172-450 [facility] MEAN PLATELET VOLUME 9.4 fl 9.0-13.0 [facility] pital GRAN % 46.5 % 50-80.0 L [facility] IG% 0.1 % 0.0-0.2 [facility] LYMPH % 20.3 % 25.0-50.0 L [facility] MONO % 4.7 % 2.0-10.0 [facility] EOS % 27.7 % 0-5.0 *H [facility] BASO % 0.7 % 0.0-2.0 [facility] GRAN # 4.3 K/mm3 2.0-8.00 [facility] IG# 0.0 K/mm3 0.0-0.2 [facility] LYMPH # 1.9 K/mm3 1.0-5.0 [facility] MONO # 0.4 K/mm3 0.10-1.20 [facility] EOS # 2.5 K/mm3 0.0-0.5 *H [facility] BASO # 0.1 K/mm3 0.0-0.2 [facility] ID Date Data Source [id number] 05/11/2020 07:07:00 AM [facility] l Name Value Range Interpretation Code Description Data Marcela rce(s) Supporting Document(s) PH 7.35 7.31-7.41 [facility] VENOUS PCO2 54.8 mmHg 41-51 [facility] VENOUS PO2 43 mmHg 35-42 [facility] VENOUS BLODD O2 SATURATION 55.2 % 68-77 L [facility] VENOUS BLOOD HCO3 29.2 meq/L 24.0-25.0 [facility] VEN[facility] BASE EXCESS 3.0 -3.0-3.0 [facility] VENOUS BLOOD CO2 30.9 mmol/L 23.0-32.0 [facility] ID Date Data Source [id number] 05/10/2020 06:45:00 AM [facility] Name Value Range Interpretation Code Description Data Marcela rce(s) Supporting Document(s) GLUCOSE 165 mg/dL 74-106 H [facility] BLOOD UREA NITROGEN 26 mg/dL 7-18 H [facility] ital CREATININE 1.46 mg/dL 0.7-1.3 H [facility] SODIUM 122 mmol/L 136-145 L [facility] POTASSIUM 5.2 mmol/L 3.5-5.1 H [facility] CHLORIDE 88 mmol/L 98-107 *L [facility] CO2 30 mmol/L 21-32 [facility] CALCIUM 8.8 mg/dL 8.5-10.1 [facility] ANION GAP 4.0 mmol/L 5-12 L [facility] GLOMERULAR FILTRATION RATE 47 mL/min [facility] GFR IS CALCULATED IN mL/min/1.73m2 ROBERT L FUNCTION: >90MILDLY DECREASED: 60-89MILDY TO MODERATELY DECREASED: 45-59 MODERATELY TO SEVERELY DECREASED: 30-44SEVERELY DECREASED: 15-29RENAL FAILURE: <15 ID Date Data Source [id number] 05/09/2020 06:32:00 AM [facility] l Name Value Range Interpretation Code Description Data Marcela rce(s) Supporting Document(s) GLUCOSE 214 mg/dL 74-106 H [facility] BLOOD UREA NITROGEN 19 mg/dL 7-18 H [facility] ital CREATININE 1.40 mg/dL 0.7-1.3 [facility] SODIUM 126 mmol/L 136-145 L [facility] POTASSIUM 5.5 mmol/L 3.5-5.1 H [facility] CHLORIDE 92 mmol/L 98-107 L [facility] CO2 31 mmol/L 21-32 [facility] CALCIUM 8.8 mg/dL 8.5-10.1 [facility] ANION GAP 3.0 mmol/L 5-12 L [facility] GLOMERULAR FILTRATION RATE 50 mL/min [facility] GFR IS CALCULATED IN mL/min/1.73m2 ROBERT L FUNCTION: >90MILDLY DECREASED: 60-89MILDY TO MODERATELY DECREASED: 45-59 MODERATELY TO SEVERELY DECREASED: 30-44SEVERELY DECREASED: 15-29RENAL FAILURE: <15 ID Date Data Source [id number] 05/08/2020 11:39:00 PM [facility] In-Patient NoteNote:05/08/2020 22;40 I was notified at [...] Code Description Data Marcela e(s) Supporting Document(s) ID Date Data Source [id number] 05/08/2020 10:34:00 PM [facility] Name Value Range Interpretation Code Description Data Marcela rce(s) Supporting Document(s) TSH 2.454 uIU/mL 0.360-3.740 [facility] ID Date Data Source [id number] 05/08/2020 10:21:00 PM [facility] Name Value Range Interpretation Code Description Data [facility](s) Supporting Document(s) GLUCOSE 186 mg/dL 74-106 H [facility] BLOOD UREA NITROGEN 16 mg/dL 7-18 [facility] ital CREATININE 1.35 mg/dL 0.7-1.3 H [facility] SODIUM 125 mmol/L 136-145 [facility] CALLED TO [facility] 05/08 2219 POTASSIUM 6.6 mmol/L 3.5-5.1 *H [facility] CALLED TO [facility] 05/08 2219 CHLORIDE 94 mmol/L 98-107 L [facility] CO2 29 mmol/L 21-32 [facility] CALCIUM 8.6 mg/dL 8.5-10.1 [facility] ANION GAP 2.0 mmol/L 5-12 L [facility] GLOMERULAR FILTRATION RATE 52 mL/min [facility] GFR IS CALCULATED IN mL/min/1.73m2 ROBERT L FUNCTION: >90MILDLY DECREASED: 60-89MILDY TO MODERATELY DECREASED: 45-59 MODERATELY TO SEVERELY DECREASED: 30-44SEVERELY DECREASED: 15-29RENAL FAILURE: <15 ID Date Data Source [id number] 05/09/2020 02:54:00 PM [facility] Name Value Range Interpretation Code Description Data Marcela rce(s) Supporting Document(s) OSMS 276 mOsm/KG 275-300 N [facility] ID Date Data Source [id number] 05/09/2020 02:51:00 PM [facility] dawn Name Value Range Interpretation Code Description Data Marcela rce(s) Supporting Document(s) OSMO URINE 208 MMOL/KG 400-850 L [facility] ID Date Data Source [id number] 05/08/2020 09:05:00 PM [facility] l Name Value Range Interpretation Code Description Data Marcela rce(s) Supporting Document(s) SODIUM,RANDOM URINE 59 mmol/L 5-300 [facility] ID Date Data Source [id number] 05/08/2020 06:10:00 PM [facility] l See AddendumProgress Note GeneralEn counter:Chart reviewed. 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 ADDENDUM: 05/08/20 1809 ADDENDUM: MashaJordan robles DO on 05/08/20 at 1803 Laboratory Tests [...] Name Value Range Interpretation Code Description Data [facility] Document(s) ID Date Data Source [id number] 05/08/2020 05:28:00 PM EST [facility] Name Value Range Interpretation Code Description Data [facility] Supporting Document(s) GLUCOSE 204 mg/dL 74-106 H [facility] BLOOD UREA NITROGEN 16 mg/dL 7-18 [facility] CREATININE 1.31 mg/dL 0.7-1.3 H [facility] SODIUM 124 mmol/L 136-145 L [facility] POTASSIUM 5.4 mmol/L 3.5-5.1 H [facility] CHLORIDE 91 mmol/L 98-107 L [facility] CO2 29 mmol/L 21-32 [facility] CALCIUM 8.7 mg/dL 8.5-10.1 [facility] ANION GAP 4.0 mmol/L 5-12 L [facility] GLOMERULAR FILTRATION RATE 53 mL/min [facility] GFR IS CALCULATED IN mL/min/1.73m2 ROBERT L FUNCTION: >90MILDLY DECREASED: 60-89MILDY TO MODERATELY DECREASED: 45-59 MODERATELY TO SEVERELY DECREASED: 30-44SEVERELY DECREASED: 15-29RENAL FAILURE: <15 ID Date Data Source [id number] 05/08/2020 02:43:00 PM EST [facility] Name Value Range Interpretation Code Description Data Marcela rce(s) Supporting Document(s) GLUCOSE 222 mg/dL 74-106 H [facility] BLOOD UREA NITROGEN 17 mg/dL 7-18 [facility] ital CREATININE 1.31 mg/dL 0.7-1.3 H [facility] SODIUM 124 mmol/L 136-145 L [facility] POTASSIUM 6.0 mmol/L 3.5-5.1 H [facility] CHLORIDE 91 mmol/L 98-107 L [facility] CO2 31 mmol/L 21-32 [facility] CALCIUM 8.4 mg/dL 8.5-10.1 L [facility] ANION GAP 2.0 mmol/L 5-12 L [facility] GLOMERULAR FILTRATION RATE 53 mL/min [facility] GFR IS CALCULATED IN mL/min/1.73m2 ROBERT L FUNCTION: >90MILDLY DECREASED: 60-89MILDY TO MODERATELY DECREASED: 45-59 MODERATELY TO SEVERELY DECREASED: 30-44SEVERELY DECREASED: 15-29RENAL FAILURE: <15 ID Date Data Source [id number] 05/08/2020 09:41:00 AM EST [facility] In-Patient NoteNote:The patient will re quire following equipment at home: 36 inch slide board18 inch wheelchair with removable arm rest, elevate leg rests and anti-tippersDrop arm commodeSome electric [facility] bed with mattress and side rales 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 He does require theabove equipment so that he may perform his ADLs as well as transfer and ambulate. Name Value Range Interpretation Code Description Data Marcela rce(s) Supporting Document(s) ID Date Data Source [id number] 05/08/2020 07:04:00 AM [facility] l Name Value Range Interpretation Code Description Data Marcela rce(s) Supporting Document(s) MAGNESIUM 1.5 mg/dL 1.8-2.4 L [facility] ID Date Data Source [id number] 05/08/2020 07:04:00 AM [facility] l Name Value Range Interpretation Code Description Data Marcela e(s) Supporting Document(s) GLUCOSE 197 mg/dL 74-106 H [facility] BLOOD UREA NITROGEN 18 mg/dL 7-18 [facility] ital CREATININE 1.28 mg/dL 0.7-1.3 [facility] SODIUM 130 mmol/L 136-145 L [facility] POTASSIUM 6.3 mmol/L 3.5-5.1 H [facility] CHLORIDE 96 mmol/L 98-107 L [facility] CO2 31 mmol/L 21-32 [facility] CALCIUM 8.7 mg/dL 8.5-10.1 [facility] ANION GAP 3.0 mmol/L 5-12 L [facility] GLOMERULAR FILTRATION RATE 55 mL/min [facility] GFR IS CALCULATED IN mL/min/1.73m2 ROBERT L FUNCTION: >90MILDLY DECREASED: 60-89MILDY TO MODERATELY DECREASED: 45-59 MODERATELY TO SEVERELY DECREASED: 30-44SEVERELY DECREASED: 15-29RENAL FAILURE: <15 ID Date Data Source [id number] 05/08/2020 06:55:00 AM [facility] l Name Value Range Interpretation Code Description Data [facility] rce(s) Supporting Document(s) WHITE BLOOD COUNT 10.3 K/mm3 4.0-10.0 H [facility] RED BLOOD COUNT 3.59 M/mm3 4.50-6.00 L [facility] l HEMOGLOBIN 10.4 gm/dL 14.0-18.0 L [facility] HEMATOCRIT 31.2 % 42.0-54.0 L [facility] MEAN CELL VOLUME 86.9 fl 80-96 [facility] l MEAN CORPUSCULAR HEMOGLOBIN 29.0 pg 27.0-31.0 [facility] MEAN CORPUSCULAR HGB CONC 33.3 g/dl 32.0-36.0 [facility] RED CELL DISTRIBUTION WIDTH 14.3 % 10.0-14.5 [facility] PLATELET COUNT 412 K/mm3 172-450 [facility] MEAN PLATELET VOLUME 9.6 fl 9.0-13.0 [facility] pital GRAN % 50.9 % 50-80.0 [facility] IG% 0.4 % 0.0-0.2 H [facility] LYMPH % 17.3 % 25.0-50.0 L [facility] MONO % 4.6 % 2.0-10.0 [facility] EOS % 26.0 % 0-5.0 *H [facility] BASO % 0.8 % 0.0-2.0 [facility] GRAN # 5.2 K/mm3 2.0-8.00 [facility] IG# 0.0 K/mm3 0.0-0.2 [facility] LYMPH # 1.8 K/mm3 1.0-5.0 [facility] MONO # 0.5 K/mm3 0.10-1.20 [facility] EOS # 2.7 K/mm3 0.0-0.5 *H [facility] BASO # 0.1 K/mm3 0.0-0.2 [facility] ID Date Data Source [id number] 05/04/2020 04:14:00 PM [facility] l In-Patient NoteNote:Laboratory Tests 05/04 05/04 0625 0625 [...] rce(s) Supporting Document(s) ID Date Data Source [id number] 05/04/2020 07:37:00 AM [facility] Name Value Range Interpretation Code Description Data [facility] rce(s) Supporting Document(s) CHOLESTEROL 93 mg/dL 0-200 [facility] TRIGLYCERIDES 130 mg/dL 0-150 [facility] LDL CHOLESTEROL 43 mg/dL 0-100 [facility] HDL CHOLESTEROL 24 mg/dL 40-60 L [facility] CHOL/HDL RATIO 3.9 0.0-5.0 [facility] ID Date Data Source [id number] 05/04/2020 07:25:00 AM EST [facility] Name Value Range Interpretation Code Description Data [facility] rce(s) Supporting Document(s) MAGNESIUM 1.3 mg/dL 1.8-2.4 L [facility] ID Date Data Source [id number] 05/04/2020 07:25:00 AM EST [facility] Name Value Range Interpretation Code Description Data [facility] rce(s) Supporting Document(s) C REACTIVE PROTEIN 10.1 mg/L 0.0-3.0 H [facility] dawn ID Date Data Source [id number] 05/04/2020 07:25:00 AM EST [facility] Name Value Range Interpretation Code Description Data Marcela rce(s) Supporting Document(s) GLUCOSE 224 mg/dL 74-106 H [facility] BLOOD UREA NITROGEN 16 mg/dL 7-18 [facility] ital CREATININE 1.34 mg/dL 0.7-1.3 H [facility] SODIUM 140 mmol/L 136-145 [facility] POTASSIUM 4.3 mmol/L 3.5-5.1 [facility] CHLORIDE 108 mmol/L 98-107 H [facility] CO2 25 mmol/L 21-32 [facility] CALCIUM 8.4 mg/dL 8.5-10.1 L [facility] ANION GAP 7.0 mmol/L 5-12 [facility] GLOMERULAR FILTRATION RATE 52 mL/min [facility] GFR IS CALCULATED IN mL/min/1.73m2 ROBERT L FUNCTION: >90MILDLY DECREASED: 60-89MILDY TO MODERATELY DECREASED: 45-59 MODERATELY TO SEVERELY DECREASED: 30-44SEVERELY DECREASED: 15-29RENAL FAILURE: <15 AST 15 U/L 15-37 [facility] ALT 19 U/L 12-78 [facility] ALKALINE PHOSPHATASE 49 U/L 46-116 [facility] TOTAL BILIRUBIN 0.2 mg/dL 0.2-1.0 [facility] TOTAL PROTEIN 4.8 g/dl 6.4-8.2 L [facility] ALBUMIN 2.0 gm/dL 3.4-5.0 L [facility] ID Date Data Source [id number] 05/04/2020 07:01:00 AM EST [facility] Name Value Range Interpretation Code Description Data Marcela rce(s) Supporting Document(s) WHITE BLOOD COUNT 13.1 K/mm3 4.0-10.0 H [facility] RED BLOOD COUNT 3.09 M/mm3 4.50-6.00 L [facility] HEMOGLOBIN 9.0 gm/dL 14.0-18.0 L [facility] HEMATOCRIT 27.4 % 42.0-54.0 L [facility] MEAN CELL VOLUME 88.7 fl 80-96 [facility] MEAN CORPUSCULAR HEMOGLOBIN 29.1 pg 27.0-31.0 [facility] MEAN CORPUSCULAR HGB CONC 32.8 g/dl 32.0-36.0 [facility] RED CELL DISTRIBUTION WIDTH 15.2 % 10.0-14.5 H [facility] PLATELET COUNT 331 K/mm3 172-450 [facility] MEAN PLATELET VOLUME 10.0 fl 9.0-13.0 [facility] pital GRAN % 48.5 % 50-80.0 L [facility] IG% 0.7 % 0.0-0.2 H [facility] LYMPH % 15.8 % 25.0-50.0 L [facility] MONO % 6.1 % 2.0-10.0 [facility] EOS % 28.1 % 0-5.0 *H [facility] BASO % 0.8 % 0.0-2.0 [facility] GRAN # 6.4 K/mm3 2.0-8.00 [facility] IG# 0.1 K/mm3 0.0-0.2 [facility] LYMPH # 2.1 K/mm3 1.0-5.0 [facility] MONO # 0.8 K/mm3 0.10-1.20 [facility] EOS # 3.7 K/mm3 0.0-0.5 *H [facility] BASO # 0.1 K/mm3 0.0-0.2 [facility] ID Date Data Source [id number] 05/02/2020 04:16:00 PM [facility] HistoryChief Complaint/Admit ReasonAmbu latory dysfunction, status post [...] alone.He has no children.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 He did drink [...] Provider: Advance Care Planning* 5 minutes of hyzq-aq-poqi time spent for Advance Care Planning in [...] rce(s) Supporting Document(s) ID Date Data Source [id number] 05/02/2020 03:28:00 PM [facility] Summary of HospitalizationReason for Ad missionC. 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 He did drink [...] by mouth 4 times a day (day )Tylenol 650 mg every 6 hours as needed Procedures & Relevant StudiesStudiesLaboratory Tests All Test Result Date Time Chemistry Sodium (136 - 145 mmol/L) 142 05/02 0555 Potassium (3.5 - 5.1 mmol/L) 4.0 05/02 05 Chloride (98 - 107 mmol/L) 110 H 05/02 0555 Carbon Dioxide (21 - 32 mmol/L) 23 05/02 0555 Anion Gap (5 - 12 mmol/L) 9.0 05/02 554 BUN (7 - 18 mg/dL) 16 05/02 05 Creatinine (0.7 - 1.3 mg/dL) 1.14 05/02 05 Estimated GFR (MDRD) (mL/min) 63 05/02 05 Glucose (74 - 106 mg/dL) 177 H 05/02 05 Calcium (8.5 - 10.1 mg/dL) 8.3 L 05/02 554 Total Bilirubin (0.2 - 1.0 mg/dL) 0.3 04/30 622 AST (15 - 37 U/L) 18 04/30 622 ALT (12 - 78 U/L) 19 04/30 622 Alkaline Phosphatase (46 - 116 U/L) 69 04/30 622 C-Reactive Protein (0.0 - 3.0 mg/L) 125.8 H 04/30 622 Total Protein (6.4 - 8.2 g/dl) 5.7 L 04/30 622 Albumin (3.4 - 5.0 gm/dL) 2.5 L 04/30 622 Hematology WBC (4.0 - 10.0 K/mm3) 11.8 H 05/02 05 RBC (4.50 - 6.00 M/mm3) 3.02 L 05/02 0555 Hgb (14.0 - 18.0 gm/dL) 8.8 L / 0555 Hct (42.0 - 54.0 %) 26.1 L 05/02 0555 MCV (80 - 96 fl) 86.4 / 0555 MCH (27.0 - 31.0 pg) 29.1 05/02 0555 MCHC Differential (32.0 - 36.0 g/dl) 33.7 / 0555 RDW (10.0 - 14.5 %) 15.0 H 05/02 0555 Plt Count (172 - 450 K/mm3) 308 02/ 0555 MPV (9.0 - 13.0 fl) 10.4 / 0623 Gran % (Auto) (50 - 80.0 %) 70.0 02/ 0623 Gran # (2.0 - 8.00 K/mm3) 13.4 H 04/30 0623 Immature Gran % (0.0 - 0.2 %) 0.2 02/ 0623 Lymphocytes % (25.0 - 50.0 %) 9.7 L 02/ 0623 Monocytes % (2.0 - 10.0 %) 3.4 02/ 0623 Eosinophils % (0 - 5.0 %) 16.4 *H / 0623 Basophils % (0.0 - 2.0 %) 0.3 02/ 0623 Immature Gran # (0.0 - 0.2 K/mm3) 0.0 02/ 0623 Lymphocytes # (1.0 - 5.0 K/mm3) 1.9 02/ 0623 Monocytes # (0.10 - 1.20 K/mm3) 0.7 / 0623 Eosinophils # (0.0 - 0.5 K/mm3) 3.1 *H / 0623 Basophils # (0.0 - 0.2 K/mm3) 0.1 /06 3023 Diagnoses (Current Visit)Problem List 1. Sepsis 2. [...] 05/02 0700 97.0 80 18 120/69 96 / 0308 98.0 88 20 128/56 98 02/ 2315 97.6 87 16 133/66 97 05/01 2000 97.9 88 16 129/66 98 Patient's [...] Provider: Advance Care Planning* 3 minutes of myxo-pt-tinu time spent for Advance Care Planning in explanation/discussion of Advance Directives.* Following people are present during the meeting: The patient and myself.* Decisions reached: He will remain a DNR/DNI. Name Value Range Interpretation Code Description Data Marcela rce(s) Supporting Document(s) ID Date Data Source [id number] 05/02/2020 06:17:00 AM EST [facility] Name Value Range Interpretation Code Description Data [facility] rce(s) Supporting Document(s) GLUCOSE 177 mg/dL 74-106 H [facility] BLOOD UREA NITROGEN 16 mg/dL 7-18 [facility] ital CREATININE 1.14 mg/dL 0.7-1.3 [facility] SODIUM 142 mmol/L 136-145 [facility] POTASSIUM 4.0 mmol/L 3.5-5.1 [facility] CHLORIDE 110 mmol/L 98-107 H [facility] CO2 23 mmol/L 21-32 [facility] CALCIUM 8.3 mg/dL 8.5-10.1 [facility] ANION GAP 9.0 mmol/L 5-12 [facility] GLOMERULAR FILTRATION RATE 63 mL/min [facility] GFR IS CALCULATED IN mL/min/1.73m2 ROBERT L FUNCTION: >90MILDLY DECREASED: 60-89MILDY TO MODERATELY DECREASED: 45-59 MODERATELY TO SEVERELY DECREASED: 30-44SEVERELY DECREASED: 15-29RENAL FAILURE: <15 ID Date Data Source [id number] 05/02/2020 06:03:00 AM EST [facility] Name Value Range Interpretation Code Description Data Marcela rce(s) Supporting Document(s) WHITE BLOOD COUNT 11.8 K/mm3 4.0-10.0 H [facility] dawn RED BLOOD COUNT 3.02 M/mm3 4.50-6.00 L [facility] HEMOGLOBIN 8.8 gm/dL 14.0-18.0 [facility] HEMATOCRIT 26.1 % 42.0-54.0 L [facility] MEAN CELL VOLUME 86.4 fl 80-96 [facility] MEAN CORPUSCULAR HEMOGLOBIN 29.1 pg 27.0-31.0 [facility] MEAN CORPUSCULAR HGB CONC 33.7 g/dl 32.0-36.0 [facility] RED CELL DISTRIBUTION WIDTH 15.0 % 10.0-14.5 H [facility] PLATELET COUNT 308 K/mm3 172-450 [facility] ID Date Data Source [id number] 05/01/2020 09:39:00 AM [facility] Progress Note GeneralEncounter:Chart re viewed. 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3 [facility] SODIUM 139 mmol/L 136-145 [facility] POTASSIUM 4.3 mmol/L 3.5-5.1 [facility] CHLORIDE 109 mmol/L 98-107 H [facility] CO2 20 mmol/L 21-32 L [facility] CALCIUM 8.1 mg/dL 8.5-10.1 L [facility] ANION GAP 10.0 mmol/L 5-12 [facility] GLOMERULAR FILTRATION RATE 56 mL/min [facility] GFR IS CALCULATED IN mL/min/1.73m2 ROBERT L FUNCTION: >90MILDLY DECREASED: 60-89MILDY TO MODERATELY DECREASED: 45-59 MODERATELY TO SEVERELY DECREASED: 30-44SEVERELY DECREASED: 15-29RENAL FAILURE: <15 ID Date Data Source [id number] 05/01/2020 09:13:00 AM [facility] Name Value Range Interpretation Code Description Data [facility](s) Supporting Document(s) WHITE BLOOD COUNT 9.6 K/mm3 4.0-10.0 [facility] al RED BLOOD COUNT 3.13 M/mm3 4.50-6.00 L [facility] HEMOGLOBIN 9.2 gm/dL 14.0-18.0 [facility] HEMATOCRIT 27.7 % 42.0-54.0 [facility] MEAN CELL VOLUME 88.5 fl 80-96 [facility] MEAN CORPUSCULAR HEMOGLOBIN 29.4 pg 27.0-31.0 [facility] MEAN CORPUSCULAR HGB CONC 33.2 g/dl 32.0-36.0 [facility] RED CELL DISTRIBUTION WIDTH 15.0 % 10.0-14.5 H [facility] PLATELET COUNT 267 K/mm3 172-450 [facility] ID Date Data Source [id number] 04/30/2020 12:37:00 PM EST [facility] See AddendumProgress Note GeneralEn counter:Chart reviewed. 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(s) Supporting Document(s) ID Date Data Source [id number] 04/30/2020 07:27:00 AM EST [facility] Name Value Range Interpretation Code Description Data [facility](s) Supporting Document(s) GLUCOSE 161 mg/dL 74-106 H [facility] BLOOD UREA NITROGEN 34 mg/dL 7-18 [facility] ital CREATININE 1.48 mg/dL 0.7-1.3 H [facility] SODIUM 138 mmol/L 136-145 [facility] POTASSIUM 3.8 mmol/L 3.5-5.1 [facility] CHLORIDE 107 mmol/L 98-107 [facility] CO2 18 mmol/L 21-32 L [facility] CALCIUM 7.7 mg/dL 8.5-10.1 [facility] ANION GAP 13.0 mmol/L 5-12 H [facility] GLOMERULAR FILTRATION RATE 46 mL/min [facility] GFR IS CALCULATED IN mL/min/1.73m2 ROBERT L FUNCTION: >90MILDLY DECREASED: 60-89MILDY TO MODERATELY DECREASED: 45-59 MODERATELY TO SEVERELY DECREASED: 30-44SEVERELY DECREASED: 15-29RENAL FAILURE: <15 AST 18 U/L 15-37 [facility] ALT 19 U/L 12-78 [facility] ALKALINE PHOSPHATASE 69 U/L 46-116 [facility] TOTAL BILIRUBIN 0.3 mg/dL 0.2-1.0 [facility] TOTAL PROTEIN 5.7 g/dl 6.4-8.2 [facility] ALBUMIN 2.5 gm/dL 3.4-5.0 [facility] ID Date Data Source [id number] 04/30/2020 07:27:00 AM [facility] Name Value Range Interpretation Code Description Data [facility](s) Supporting Document(s) C REACTIVE PROTEIN 125.8 mg/L 0.0-3.0 H [facility] ital ID Date Data Source [id number] 04/30/2020 07:03:00 AM [facility] Name Value Range Interpretation Code Description Data [facility](s) Supporting Document(s) WHITE BLOOD COUNT 19.1 K/mm3 4.0-10.0 H [facility] dawn RED BLOOD COUNT 3.34 M/mm3 4.50-6.00 L [facility] HEMOGLOBIN 9.8 gm/dL 14.0-18.0 [facility] HEMATOCRIT 29.6 % 42.0-54.0 [facility] MEAN CELL VOLUME 88.6 fl 80-96 [facility] MEAN CORPUSCULAR HEMOGLOBIN 29.3 pg 27.0-31.0 [facility] MEAN CORPUSCULAR HGB CONC 33.1 g/dl 32.0-36.0 [facility] RED CELL DISTRIBUTION WIDTH 14.8 % 10.0-14.5 H [facility] PLATELET COUNT 279 K/mm3 172-450 [facility] MEAN PLATELET VOLUME 10.4 fl 9.0-13.0 [facility] pital GRAN % 70.0 % 50-80.0 [facility] IG% 0.2 % 0.0-0.2 [facility] LYMPH % 9.7 % 25.0-50.0 L [facility] MONO % 3.4 % 2.0-10.0 [facility] EOS % 16.4 % 0-5.0 *H [facility] BASO % 0.3 % 0.0-2.0 [facility] GRAN # 13.4 K/mm3 2.0-8.00 H [facility] IG# 0.0 K/mm3 0.0-0.2 [facility] LYMPH # 1.9 K/mm3 1.0-5.0 [facility] MONO # 0.7 K/mm3 0.10-1.20 [facility] EOS # 3.1 K/mm3 0.0-0.5 *H [facility] BASO # 0.1 K/mm3 0.0-0.2 [facility] ID Date Data Source [id number] 04/29/2020 07:35:00 AM [facility] Name Value Range Interpretation Code Description Data Marcela rce(s) Supporting Document(s) C REACTIVE PROTEIN 121.8 mg/L 0.0-3.0 [facility] ital ID Date Data Source [id number] 04/29/2020 07:23:00 AM [facility] Name Value Range Interpretation Code Description Data Marcela rce(s) Supporting Document(s) GLUCOSE 292 mg/dL 74-106 H [facility] BLOOD UREA NITROGEN 48 mg/dL 7-18 H [facility] ital CREATININE 1.78 mg/dL 0.7-1.3 H [facility] SODIUM 131 mmol/L 136-145 L [facility] POTASSIUM 3.6 mmol/L 3.5-5.1 [facility] CHLORIDE 101 mmol/L 98-107 [facility] CO2 21 mmol/L 21-32 [facility] CALCIUM 7.3 mg/dL 8.5-10.1 L [facility] ANION GAP 9.0 mmol/L 5-12 [facility] GLOMERULAR FILTRATION RATE 38 mL/min [facility] GFR IS CALCULATED IN mL/min/1.73m2 ROBERT L FUNCTION: >90MILDLY DECREASED: 60-89MILDY TO MODERATELY DECREASED: 45-59 MODERATELY TO SEVERELY DECREASED: 30-44SEVERELY DECREASED: 15-29RENAL FAILURE: <15 AST 22 U/L 15-37 [facility] ALT 19 U/L 12-78 [facility] ALKALINE PHOSPHATASE 63 U/L 46-116 [facility] TOTAL BILIRUBIN 0.2 mg/dL 0.2-1.0 [facility] TOTAL PROTEIN 5.1 g/dl 6.4-8.2 L [facility] ALBUMIN 2.2 gm/dL 3.4-5.0 L [facility] ID Date Data Source [id number] 04/29/2020 06:55:00 AM EST [facility] Name Value Range Interpretation Code Description Data Marcela rce(s) Supporting Document(s) WHITE BLOOD COUNT 25.9 K/mm3 4.0-10.0 *[facility] RED BLOOD COUNT 3.05 M/mm3 4.50-6.00 L [facility] HEMOGLOBIN 8.9 gm/dL 14.0-18.0 L [facility] HEMATOCRIT 26.9 % 42.0-54.0 [facility] MEAN CELL VOLUME 88.2 fl 80-96 [facility] MEAN CORPUSCULAR HEMOGLOBIN 29.2 pg 27.0-31.0 [facility] MEAN CORPUSCULAR HGB CONC 33.1 g/dl 32.0-36.0 [facility] RED CELL DISTRIBUTION WIDTH 14.6 % 10.0-14.5 H [facility] PLATELET COUNT 262 K/mm3 172-450 [facility] MEAN PLATELET VOLUME 10.2 fl 9.0-13.0 [facility] GRAN % 80.3 % 50-80.0 H [facility] IG% 0.5 % 0.0-0.2 H [facility] LYMPH % 8.7 % 25.0-50.0 L [facility] MONO % 5.4 % 2.0-10.0 [facility] EOS % 4.9 % 0-5.0 [facility] BASO % 0.2 % 0.0-2.0 [facility] GRAN # 20.8 K/mm3 2.0-8.00 *H [facility] IG# 0.1 K/mm3 0.0-0.2 [facility] LYMPH # 2.3 K/mm3 1.0-5.0 [facility] MONO # 1.4 K/mm3 0.10-1.20 H [facility] EOS # 1.3 K/mm3 0.0-0.5 H [facility] BASO # 0.0 K/mm3 0.0-0.2 [facility] ID Date Data Source [id number] 05/05/2020 10:20:00 AM EST [facility] Name Value Range Interpretation Code Description Data Marceal rce(s) Supporting Document(s) [facility] ID Date Data Source [id number] 05/05/2020 10:20:00 AM EST [facility] Name Value Range Interpretation Code Description Data Marcela rce(s) Supporting Document(s) [facility] ID Date Data Source [id number] 04/28/2020 08:02:00 PM EST [facility] Name Value Range Interpretation Code Description Data Marcela rce(s) Supporting Document(s) NEUTROPHILS 81 % 50-80 H [facility] LYMPHOCYTE 8 % 25-50 L [facility] MONOCYTE 6 % 2.0-10.0 [facility] Eosinophils [#/volume] in Blood by Automated count 5 % 0-5 [facility] PLATELET ESTIMATE NORMAL NORMAL [facility] RBC MORPHOLOGY EXPECTED RESULTS:NORMAL= NORMOCHROMIC, NORMOCYTIC CELLSAbnormal Morphologic Findings > or = to 1+ are reported.Clinicopathologic correlation by the provider is required todetermine significance of finding. ID Date Data Source [id number] 04/28/2020 08:49:00 PM [facility] l Name Value Range Interpretation Code Description Data Marcela rce(s) Supporting Document(s) WHITE BLOOD COUNT 28.8 K/mm3 4.0-10.0 *[facility] RED BLOOD COUNT 3.23 M/mm3 4.50-6.00 L [facility] HEMOGLOBIN 9.5 gm/dL 14.0-18.0 L [facility] HEMATOCRIT 28.5 % 42.0-54.0 L [facility] MEAN CELL VOLUME 88.2 fl 80-96 [facility] MEAN CORPUSCULAR HEMOGLOBIN 29.4 pg 27.0-31.0 [facility] MEAN CORPUSCULAR HGB CONC 33.3 g/dl 32.0-36.0 [facility] RED CELL DISTRIBUTION WIDTH 14.7 % 10.0-14.5 H [facility] PLATELET COUNT 282 K/mm3 172-450 [facility] MEAN PLATELET VOLUME 9.5 fl 9.0-13.0 [facility] pital GRAN % 81.0 % 50-80.0 H [facility] IG% 0.2 % 0.0-0.2 [facility] LYMPH % 6.1 % 25.0-50.0 L [facility] MONO % 6.6 % 2.0-10.0 [facility] EOS % 5.9 % 0-5.0 H [facility] BASO % 0.2 % 0.0-2.0 [facility] GRAN # 23.3 K/mm3 2.0-8.00 *H [facility] IG# 0.1 K/mm3 0.0-0.2 [facility] LYMPH # 1.8 K/mm3 1.0-5.0 [facility] MONO # 1.9 K/mm3 0.10-1.20 H [facility] EOS # 1.7 K/mm3 0.0-0.5 *H [facility] BASO # 0.1 K/mm3 0.0-0.2 [facility] ID Date Data Source [id number] 04/28/2020 09:16:00 PM EST [facility] Name Value Range Interpretation Code Description Data Marcela rce(s) Supporting Document(s) GLUCOSE 146 mg/dL 74-106 H [facility] BLOOD UREA NITROGEN 47 mg/dL 7-18 H [facility] ital CREATININE 1.85 mg/dL 0.7-1.3 H [facility] SODIUM 131 mmol/L 136-145 L [facility] POTASSIUM 4.7 mmol/L 3.5-5.1 [facility] CHLORIDE 99 mmol/L 98-107 [facility] CO2 22 mmol/L 21-32 [facility] CALCIUM 7.8 mg/dL 8.5-10.1 L [facility] ANION GAP 10.0 mmol/L 5-12 [facility] GLOMERULAR FILTRATION RATE 36 mL/min [facility] GFR IS CALCULATED IN mL/min/1.73m2 ROBERT L FUNCTION: >90MILDLY DECREASED: 60-89MILDY TO MODERATELY DECREASED: 45-59 MODERATELY TO SEVERELY DECREASED: 30-44SEVERELY DECREASED: 15-29RENAL FAILURE: <15 AST 24 U/L 15-37 [facility] ALT 18 U/L 12-78 [facility] ALKALINE PHOSPHATASE 69 U/L 46-116 [facility] pital TOTAL BILIRUBIN 0.3 mg/dL 0.2-1.0 [facility] TOTAL PROTEIN 5.8 g/dl 6.4-8.2 L [facility] ALBUMIN 2.5 gm/dL 3.4-5.0 L [facility] ID Date Data Source [id number] 05/04/2020 12:05:00 PM EST [facility] Name Value [...] Note 01 Not Detected Reference Range: Not [id number]... Note 01 Not Detected Reference Range: Not [...] <- Panic Low,>-Panic High,A-Abnormal,AA-Critical Abnormal Performed at:[address] [id number] Shanda Ryan MD, ID Date Data Source [id number] 04/28/2020 02:20:00 PM [facility] l Name Value Range Interpretation Code Description Data Marcela rce(s) Supporting Document(s) STOOL FOR OCCULT BLOOD NEGATIVE NEGATIVE [facility] ospital ID Date Data Source [id number] 04/28/2020 02:20:00 PM [facility] l Name Value Range Interpretation Code Description Data Marcela rce(s) Supporting Document(s) CDIFF A/B POSITIVE NEGATIVE [facility] THIS TEST IS PERFORMED USING A RAPIDIMMU NONASSAY FOR DETECTING CLOSTRIDIUM DIFFICILE TOXINS AAND B. ID Date Data Source [id number] 04/26/2020 10:20:00 AM [facility] l Name Value Range Interpretation Code Description Data Marcela rce(s) Supporting Document(s) GLUCOSE 260 mg/dL 74-106 H [facility] BLOOD UREA NITROGEN 33 mg/dL 7-18 H [facility] ital CREATININE 1.49 mg/dL 0.7-1.3 H [facility] SODIUM 133 mmol/L 136-145 [facility] POTASSIUM 4.8 mmol/L 3.5-5.1 [facility] CHLORIDE 99 mmol/L 98-107 [facility] CO2 28 mmol/L 21-32 [facility] CALCIUM 9.3 mg/dL 8.5-10.1 [facility] ANION GAP 6.0 mmol/L 5-12 [facility] GLOMERULAR FILTRATION RATE 46 mL/min [facility] GFR IS CALCULATED IN mL/min/1.73m2 ROBERT L FUNCTION: >90MILDLY DECREASED: 60-89MILDY TO MODERATELY DECREASED: 45-59 MODERATELY TO SEVERELY DECREASED: 30-44SEVERELY DECREASED: 15-29RENAL FAILURE: <15 AST 16 U/L 15-37 [facility] ALT 22 U/L 12-78 [facility] ALKALINE PHOSPHATASE 77 U/L 46-116 [facility] pital TOTAL BILIRUBIN 0.4 mg/dL 0.2-1.0 [facility] TOTAL PROTEIN 7.2 g/dl 6.4-8.2 [facility] ALBUMIN 3.4 gm/dL 3.4-5.0 [facility] ID Date Data Source [id number] 04/26/2020 10:14:00 AM [facility] Name Value Range Interpretation Code Description Data Marcela rce(s) Supporting Document(s) WHITE BLOOD COUNT 8.7 K/mm3 4.0-10.0 [facility] RED BLOOD COUNT 3.79 M/mm3 4.50-6.00 L [facility] HEMOGLOBIN 11.1 gm/dL 14.0-18.0 [facility] HEMATOCRIT 33.8 % 42.0-54.0 [facility] MEAN CELL VOLUME 89.2 fl 80-96 [facility] MEAN CORPUSCULAR HEMOGLOBIN 29.3 pg 27.0-31.0 [facility] MEAN CORPUSCULAR HGB CONC 32.8 g/dl 32.0-36.0 [facility] RED CELL DISTRIBUTION WIDTH 14.9 % 10.0-14.5 H [facility] PLATELET COUNT 344 K/mm3 172-450 [facility] ID Date Data Source [id number] 04/24/2020 12:46:00 PM [facility] Progress Note GeneralEncounter:Chart re viewed. Patient interviewed [...] would benefit from supportive therapy.t this stage samra hold off prescribing pharmaceuticals. 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 Continue supplementation for healing Consulted Mr Marisol to discuss stomp care and preparation 11. Diabetes mellitus A&PContinue ADA diet Continue long lasting insulin as well as sliding scale coverage 12. PAD (peripheral artery disease) A&PContinue secondary prevention, Severe 13. GERD (gastroesophageal reflux disease) A&PContinue PPIs Name Value Range Interpretation Code Description Data Marcela zurita(s) Supporting Document(s) ID Date Data Source [id number] 04/22/2020 04:36:00 PM EST [facility] In-Patient NoteNote:Mr Fleming had psych consult today. The recommendation was to start therapy is possible but no medications at this point. Name Value Range Interpretation Code Description Data Marcela rce(s) Supporting Document(s) ID Date Data Source [id number] 04/19/2020 08:46:00 PM EST [facility] Progress Note GeneralEncounter:Chart re viewed. Patient interviewed and examined. Labs, medications and orders viewed by me. SubjectiveGeneral Condition:Mr Fleming is a 74 year old male who was transferred here from [facility] where he underwent BKA of his left [...] had 2 units of PRBCs transfusion at [facility]. His Hb is 9.3. 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 Iron deficiency A&PContinue supplementation. Wewill obtain iron studies as possibly there is [...] PPIs Advance Care Planning* 5 minutes of [id number] time spent for Advance Care Planning in explanation/discussion of Advance Directives.* Following people are present during the meeting: Mr Alberto and myself* Decisions reached: Maintain full code VTE ProphylaxisVTE Prophylaxis: Continue heparin sc Name Value Range Interpretation Code Description Data Marcela rce(s) Supporting Document(s) ID Date Data Source [id number] 04/19/2020 06:32:00 AM [facility] l Name Value Range Interpretation Code Description Data [facility] rce(s) Supporting Document(s) GLUCOSE 250 mg/dL 74-106 H [facility] BLOOD UREA NITROGEN 24 mg/dL 7-18 H [facility] ital CREATININE 1.40 mg/dL 0.7-1.3 H [facility] SODIUM 133 mmol/L 136-145 L [facility] POTASSIUM 4.9 mmol/L 3.5-5.1 [facility] CHLORIDE 98 mmol/L 98-107 [facility] CO2 29 mmol/L 21-32 [facility] CALCIUM 8.7 mg/dL 8.5-10.1 [facility] ANION GAP 6.0 mmol/L 5-12 [facility] GLOMERULAR FILTRATION RATE 50 mL/min [facility] GFR IS CALCULATED IN mL/min/1.73m2 ROBERT L FUNCTION: >90MILDLY DECREASED: 60-89MILDY TO MODERATELY DECREASED: 45-59 MODERATELY TO SEVERELY DECREASED: 30-44SEVERELY DECREASED: 15-29RENAL FAILURE: <15 AST 17 U/L 15-37 [facility] ALT 23 U/L 12-78 [facility] ALKALINE PHOSPHATASE 59 U/L 46-116 [facility] pital TOTAL BILIRUBIN 0.3 mg/dL 0.2-1.0 [facility] TOTAL PROTEIN 6.7 g/dl 6.4-8.2 [facility] ALBUMIN 2.7 gm/dL 3.4-5.0 L [facility] ID Date Data Source [id number] 04/19/2020 06:03:00 AM [facility] Name Value Range Interpretation Code Description Data [facility] Supporting Document(s) WHITE BLOOD COUNT 8.0 K/mm3 4.0-10.0 [facility] al RED BLOOD COUNT 3.18 M/mm3 4.50-6.00 L [facility] HEMOGLOBIN 9.3 gm/dL 14.0-18.0 L [facility] HEMATOCRIT 28.1 % 42.0-54.0 L [facility] MEAN CELL VOLUME 88.4 fl 80-96 [facility] MEAN CORPUSCULAR HEMOGLOBIN 29.2 pg 27.0-31.0 [facility] MEAN CORPUSCULAR HGB CONC 33.1 g/dl 32.0-36.0 [facility] RED CELL DISTRIBUTION WIDTH 14.6 % 10.0-14.5 H [facility] PLATELET COUNT 273 K/mm3 172-450 [facility] MEAN PLATELET VOLUME 9.5 fl 9.0-13.0 [facility] pital GRAN % 69.2 % 50-80.0 [facility] IG% 0.1 % 0.0-0.2 [facility] LYMPH % 18.2 % 25.0-50.0 L [facility] MONO % 7.2 % 2.0-10.0 [facility] EOS % 4.6 % 0-5.0 [facility] BASO % 0.7 % 0.0-2.0 [facility] GRAN # 5.6 K/mm3 2.0-8.00 [facility] IG# 0.0 K/mm3 0.0-0.2 [facility] LYMPH # 1.5 K/mm3 1.0-5.0 [facility] MONO # 0.6 K/mm3 0.10-1.20 [facility] EOS # 0.4 K/mm3 0.0-0.5 [facility] BASO # 0.1 K/mm3 0.0-0.2 [facility] ID Date Data Source [id number] 04/16/2020 09:38:00 AM [facility] HistoryChief Complaint/Admit ReasonDebi llity and deconditioningSt post left below the knee amputationHistory of Presenting IllnessThis is a 74 year old male with past medical history of diabetes mellitus, PAD, st post right BKA, hyperlipidemia, hypertension, iron deficiency anemia, peripheral neuropathy,iron deficiency anemia who was treated at [facility] in February 2020 for DKA and left [...] referred for acute PT/OT rehab program at [facility]. He was maintained on IV antibiotics, his insulin was adjusted and he was started on Iron supplementation. The demand of an acute rehab program were to exhausting for Mr Fleming. He was referred to [facility] for a subacute rehab. Prior to discharge his jose luis and sutures were removed. Mr Fleming has been using right leg prosthesis prior to his February leftfoot infection. He is coming to [facility] for a Subacute rehab and recoveryfrom his [...] dysuria, hematuria, nocturia. MusculoskeletalReports: other (Hx of r.BKA and s.p. left BKA). HematologyReports: other (Anemia). [...] Upper extremities, St post Bilat. 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 Supporting Document(s) HGBA1C 9.6 % 3.8-5.6 H [facility] Diabetic > or = to 6.5%Prediabetes 5.7-6 .4%Normal <5.7 ESTIMATED AVERAGE GLUCOSE 228.8 mg/dL [facility] ID Date Data Source [id number] 04/16/2020 06:34:00 AM [facility] l Name Value Range Interpretation Code Description Data [facility](s) Supporting Document(s) WHITE BLOOD COUNT 7.3 K/mm3 4.0-10.0 [facility] al RED BLOOD COUNT 3.34 M/mm3 4.50-6.00 L [facility] HEMOGLOBIN 9.8 gm/dL 14.0-18.0 [facility] HEMATOCRIT 30.1 % 42.0-54.0 [facility] MEAN CELL VOLUME 90.1 fl 80-96 [facility] MEAN CORPUSCULAR HEMOGLOBIN 29.3 pg 27.0-31.0 [facility] MEAN CORPUSCULAR HGB CONC 32.6 g/dl 32.0-36.0 [facility] RED CELL DISTRIBUTION WIDTH 14.7 % 10.0-14.5 H [facility] PLATELET COUNT 301 K/mm3 172-450 [facility] MEAN PLATELET VOLUME 9.3 fl 9.0-13.0 [facility] pital GRAN % 60.9 % 50-80.0 [facility] IG% 0.1 % 0.0-0.2 [facility] LYMPH % 23.5 % 25.0-50.0 L [facility] MONO % 6.8 % 2.0-10.0 [facility] EOS % 7.7 % 0-5.0 H [facility] BASO % 1.0 % 0.0-2.0 [facility] GRAN # 4.5 K/mm3 2.0-8.00 [facility] IG# 0.0 K/mm3 0.0-0.2 [facility] LYMPH # 1.7 K/mm3 1.0-5.0 [facility] MONO # 0.5 K/mm3 0.10-1.20 [facility] EOS # 0.6 K/mm3 0.0-0.5 H [facility] BASO # 0.1 K/mm3 0.0-0.2 [facility] ID Date Data Source [id number] 04/16/2020 07:05:00 [facility] Name Value Range Interpretation Code Description Data Marcela rce(s) Supporting Document(s) C REACTIVE PROTEIN 12.4 mg/L 0.0-3.0 H [facility] ID Date Data Source [id number] 04/16/2020 07:05:00 AM [facility] l Name Value Range Interpretation Code Description Data Marcela rce(s) Supporting Document(s) GLUCOSE 274 mg/dL 74-106 H [facility] BLOOD UREA NITROGEN 21 mg/dL 7-18 H [facility] ital CREATININE 1.29 mg/dL 0.7-1.3 [facility] SODIUM 137 mmol/L 136-145 [facility] POTASSIUM 5.2 mmol/L 3.5-5.1 H [facility] CHLORIDE 102 mmol/L 98-107 [facility] CO2 29 mmol/L 21-32 [facility] CALCIUM 9.4 mg/dL 8.5-10.1 [facility] ANION GAP 6.0 mmol/L 5-12 [facility] GLOMERULAR FILTRATION RATE 54 mL/min [facility] GFR IS CALCULATED IN mL/min/1.73m2 ROBERT L FUNCTION: >90MILDLY DECREASED: 60-89MILDY TO MODERATELY DECREASED: 45-59 MODERATELY TO SEVERELY DECREASED: 30-44SEVERELY DECREASED: 15-29RENAL FAILURE: <15 AST 21 U/L 15-37 [facility] ALT 27 U/L 12-78 [facility] ALKALINE PHOSPHATASE 63 U/L 46-116 [facility] pital TOTAL BILIRUBIN 0.4 mg/dL 0.2-1.0 [facility] TOTAL PROTEIN 7.1 g/dl 6.4-8.2 [facility] ALBUMIN 2.8 gm/dL 3.4-5.0 L [facility] ID Date Data Source [id number] 04/15/2020 01:52:00 PM EST [facility] Name Value Range Interpretation Code Description Data Marcela rce(s) Supporting Document(s) URINE RBC NONE SEEN /hpf 0-3 [facility] URINE WBC NONE SEEN /hpf 0-5 [facility] URINE EPITHELIAL CELLS 1+ /hpf 0 [facility] ospital ID Date Data Source [id number] [id number] 04/15/2020 01:44:00 PM EST [facility] Name Value Range Interpretation Code Description Data Marcela rce(s) Supporting Document(s) URINE COLOR. [facility] URINE APPEARANCE CLEAR [facility] GLUCOSE (UA) 500 mg/dL [facility] URINE BILIRUBIN NEGATIVE NEGATIVE [facility] URINE KETONE NEGATIVE mg/dL NEGATIVE [facility] SPECIFIC GRAVITY,URINE 1.020 1.001-1.035 [facility] URINE BLOOD TRACE NEGATIVE [facility] PH,URINE 7.0 5.0-9.0 [facility] URINE PROTEIN NEGATIVE mg/dL NEGATIVE [facility] URINE UROBILINOGEN NORMAL(0.2-1) mg/dL 0-1 [facility] URINE NITRATE NEGATIVE NEGATIVE [facility] URINE LEUKOCYTE ESTERASE NEGATIVE NEGATIVE [facility] ID Date Data Source [id number] 04/15/2020 09:23:00 AM EST [facility] Name Value Range Interpretation Code Description Data Marcela rce(s) Supporting Document(s) SARS coronavirus 2 RNA [Presence] in Res piratory specimen by ZEYAD with probe detection NEGATIVE [facility] This lab was ordered by [facility] a nd reported by [facility]. ID Date Data Source [id number] 03/25/2020 06:08:00 PM EST [facility] Name Value Range Interpretation Code Description Data Marcela rce(s) Supporting Document(s) SARS coronavirus 2 RNA [Presence] in Res piratory specimen by ZEYAD with probe detection [facility] This lab was ordered by [facility] a nd reported by [facility]. ID Date Data Source [id number] 03/18/2020 07:56:00 PM EST [facility] Name Value Range Interpretation Code Description Data Marcela rce(s) Supporting Document(s) SARS coronavirus 2 RNA [Presence] in Res piratory specimen by ZEYAD with probe detection [facility] This lab was ordered by [facility] a nd reported by [facility]. ID Date Data Source [id number] 07/26/2019 01:58:00 PM EDT [facility] Name Value Range Interpretation Code Description Data Marcela rce(s) Supporting Document(s) SODIUM 141 MEQ/L 135-145 [facility] POTASSIUM 4.8 MEQ/L 3.5-5.3 [facility] CHLORIDE 107 MEQ/L 94-110 [facility] CARBON DIOXIDE 23 MEQ/L 22-33 [facility] ANION GAP 16 5-16 N [facility] BLOOD UREA NITRO 24 MG/DL 7-25 [facility] CREATININE 1.3 MG/DL 0.6-1.4 N [facility] GFR 54.1 ML/MIN [facility] Stage G3a - Mildly to moderately [...] years only. BUN/CREAT RATIO 18 8-36 N [facility] GLUCOSE 261 MG/DL 70-100 H [facility] CA 9.3 MG/DL 8.7-10.5 N [facility] BILIRUBIN,TOTAL 0.3 MG/DL 0.1-1.3 N [facility] AST 12 U/L 5-40 N [facility] ALT 14 U/L 5-48 N [facility] ALKALINE PHOSPHATASE 66 U/L 40-140 N [facility] alth TOTAL PROTEIN 6.7 G/DL 5.9-8.3 [facility] ALBUMIN 4.5 G/DL 3.0-5.1 [facility] GLOBULIN 2.2 G/DL 1.5-3.5 N [facility] ALB/GLOB RATIO 2.0 G/DL 1.0-3.0 N [facility] ID Date Data Source [id number] 07/26/2019 01:58:00 PM EDT [facility] Name Value Range Interpretation Code Description Data Marcela rce(s) Supporting Document(s) GLYCOSYLATED HGBA1C 10.5 % 4.1-6.5 H [facility] lt ID Date Data Source [id number] 07/26/2019 01:58:00 PM EDT [facility] Name Value Range Interpretation Code Description Data Marcela rce(s) Supporting Document(s) TRIGLYCERIDES 152 MG/DL 45-150 [facility] CHOLESTEROL 146 MG/DL 125-200 [facility] LDL CHOLESTEROL 76 MG/DL 50-130 [facility] HDL CHOLESTEROL 40 MG/DL 39-96 [facility] CHOL/HDL RATIO 3.7 0-4.9 N [facility] ID Date Data Source [id number] 04/16/2019 02:37:00 PM EST [facility] Name Value Range Interpretation Code Description Data Marcela rce(s) Supporting Document(s) SODIUM 142 MEQ/L 135-145 N [facility] POTASSIUM 4.5 MEQ/L 3.5-5.3 N [facility] CHLORIDE 107 MEQ/L 94-110 N [facility] CARBON DIOXIDE 26 MEQ/L 22-33 [facility] ANION GAP 14 5-16 N [facility] BLOOD UREA NITRO 17 MG/DL 7-25 N [facility] CREATININE 1.3 MG/DL 0.6-1.4 [facility] GFR 54.1 ML/MIN [facility] Stage G3a - Mildly to moderately [...] Healthy Patients. BUN/CREAT RATIO 13 8-36 N [facility] GLUCOSE 271 MG/DL 70-100 H [facility] CA 9.0 MG/DL 8.7-10.5 N [facility] BILIRUBIN,TOTAL 0.3 MG/DL 0.1-1.3 [facility] AST 14 U/L 5-40 [facility] ALT 16 U/L 5-48 N [facility] ALKALINE PHOSPHATASE 73 U/L 40-140 N [facility] TOTAL PROTEIN 6.4 G/DL 5.9-8.3 N [facility] ALBUMIN 4.1 G/DL 3.0-5.1 [facility] GLOBULIN 2.3 G/DL 1.5-3.5 [facility] ALB/GLOB RATIO 1.8 G/DL 1.0-2.7 [facility] ID Date Data Source [id number] 04/16/2019 02:37:00 PM EST [facility] Name Value Range Interpretation Code Description Data Marcela rce(s) Supporting Document(s) GLYCOSYLATED HGBA1C 9.2 % 4.1-6.5 [facility] ID Date Data Source [id number] 04/16/2019 02:37:00 PM EST [facility] Name Value Range Interpretation Code Description Data Marcela rce(s) Supporting Document(s) TRIGLYCERIDES 97 MG/DL 45-150 [facility] CHOLESTEROL 160 MG/DL 125-200 [facility] LDL CHOLESTEROL 99 MG/DL 50-130 [facility] HDL CHOLESTEROL 42 MG/DL 39-96 [facility] CHOL/HDL RATIO 3.8 0-4.9 [facility] Procedure Social History Code Duration Value Status Description Data Source(s ) Smoking 03/25/2020 12:00:00 AM EST Never Smoker completed Never S moker eCW1 ([facility]) Smoking 07/27/2019 12:00:00 AM EDT Never Smoker completed Never S moker eCW1 ([facility]) Smoking 07/27/2019 12:00:00 AM EDT Never Smoker completed Never S moker eCW1 ([facility]) Smoking 07/27/2019 12:00:00 AM EDT Never Smoker completed Never S moker eCW1 ([facility]) Smoking 07/27/2019 12:00:00 AM EDT Never Smoker completed Never S moker eCW1 ([facility]) Smoking 07/27/2019 12:00:00 AM EDT Never Smoker completed Never S moker eCW1 ([facility]) Smoking 07/27/2019 12:00:00 AM EDT Never Smoker completed Never S moker eCW1 ([facility]) Smoking 07/27/2019 12:00:00 AM EDT Never Smoker completed Never S moker eCW1 ([facility]) Smoking 07/27/2019 12:00:00 AM EDT Never Smoker completed Never S moker eCW1 ([facility]) Smoking 07/27/2019 12:00:00 AM EDT Never Smoker completed Never S moker eCW1 ([facility]) Smoking 07/27/2019 12:00:00 AM EDT Never Smoker completed Never S moker eCW1 ([facility]) Smoking 07/27/2019 12:00:00 AM EDT Never Smoker completed Never S moker eCW1 ([facility]) Smoking 07/27/2019 12:00:00 AM EDT Never Smoker completed Never S moker eCW1 ([facility]) Smoking 07/27/2019 12:00:00 AM EDT Never Smoker completed Never S moker eCW1 ([facility]) Smoking 07/27/2019 12:00:00 AM EDT Never Smoker completed Never S moker eCW1 ([facility]) Vital Signs ID Date Data Source UNK Name Value Range Interpretation Code Description Data Source(s) Body mass index (BMI) [Ratio] 33.04 kg/m2 33.04 kg/m2 eCW1 ([facility]) Body height 67 [in_us] 67 [in_us] eCW1 ([facility]) Body weight Measured 211 [lb_av] 211 [lb_av] eC W1 ([facility]) Body weight Measured 211.2 [lb_av] 211.2 [lb_av ] eCW1 ([facility]) Diastolic blood pressure 72 mm[Hg] 72 mm[Hg] eCW1 ([facility]) Systolic blood pressure 130 mm[Hg] 130 mm[Hg] e CW1 ([facility]) Body temperature 98.2 [degF] 98.2 [degF] eCW1 ( [facility]) Respiratory rate 18 /min 18 /min eCW1 ([facility]) Heart rate 118 /min 118 /min eCW1 ([facility]) Body mass index (BMI) [Ratio] 33.07 kg/m2 33.07 kg/m2 eCW1 ([facility]) Body height 67 [in_us] 67 [in_us] eCW1 ([facility]) Diastolic blood pressure 72 mm[Hg] 72 mm[Hg] eCW1 ([facility]) Systolic blood pressure 122 mm[Hg] 122 mm[Hg] e CW1 ([facility]) Body temperature 98.1 [degF] 98.1 [degF] eCW1 ( [facility]) Respiratory rate 18 /min 18 /min eCW1 ([facility]) Heart rate 103 /min 103 /min eCW1 ([facility]) Body mass index (BMI) [Ratio] 33.76 kg/m2 33.76 kg/m2 eCW1 ([facility]) Body height 67 [in_us] 67 [in_us] eCW1 ([facility]) Body weight Measured 215.6 [lb_av] 215.6 [lb_av ] eCW1 ([facility]) Diastolic blood pressure 56 mm[Hg] 56 mm[Hg] eCW1 ([facility]) Systolic blood pressure 138 mm[Hg] 138 mm[Hg] e CW1 ([facility]) Body temperature 99.1 [degF] 99.1 [degF] eCW1 ( [facility]) Respiratory rate 16 /min 16 /min eCW1 ([facility]) Heart rate 87 /min 87 /min eCW1 ([facility]) Body mass index (BMI) [Ratio] 35.39 kg/m2 35.39 kg/m2 eCW1 ([facility]) Body height 67 [in_us] 67 [in_us] eCW1 ([facility]) Body weight Measured 226 [lb_av] 226 [lb_av] eC W1 ([facility]) Diastolic blood pressure 65 mm[Hg] 65 mm[Hg] eCW1 ([facility]) Systolic blood pressure 144 mm[Hg] 144 mm[Hg] e CW1 ([facility]) Body temperature 98.1 [degF] 98.1 [degF] eCW1 ( [facility]) Respiratory rate 18 /min 18 /min eCW1 ([facility]) Heart rate 83 /min 83 /min eCW1 ([facility]) Body mass index (BMI) [Ratio] 35.86 kg/m2 35.86 kg/m2 eCW1 ([facility]) Body height 67 [in_us] 67 [in_us] eCW1 ([facility]) Body weight Measured 229 [lb_av] 229 [lb_av] eC W1 ([facility]) ID Date Data Source [id number] 05/14/2020 11:15:00 AM EST [facility] Name Value Range Interpretation Code Description Data Source(s) WEIGHT 75.7 kilos 75.7 kilos [facility] HEIGHT 170.18 centimeters 170.18 centimeter [facility] WEIGHT 95.8 kilos 95.8 [facility] HEIGHT 152.4 centimeters 152.4 centimeters [facility] WEIGHT 78.3 kilos 78.3 [facility] HEIGHT 170.18 centimeters 170.18 centimeter [facility] ID Date Data Source [id number] 05/07/2020 11:37:00 AM EST [facility] Name Value Range Interpretation Code Description Data Source(s) WEIGHT 78.3 kilos 78.3 [facility] HEIGHT 170.18 centimeters 170.18 centimeter [facility] ID Date Data Source [id number] 05/07/2020 11:37:00 AM EST [facility] Name Value Range Interpretation Code Description Data Source(s) WEIGHT 78.3 kilos 78.3 [facility] HEIGHT 170.18 centimeters 170.18 centimeter [facility] WEIGHT 72.4 kilos 72.4 [facility] HEIGHT 170.18 centimeters 170.18 centimeter [facility] WEIGHT 82.1 kilos 82.1 [facility] HEIGHT 170.18 centimeters 170.18 centimeter [facility] Patient Treatment Plan of Care Planned Activity Planned Date Details Description Data Source (s) Glucometer 05/13/2019 12:00:00 AM EST e CW1 ([facility]) Glucometer 05/13/2019 12:00:00 AM EST e CW1 ([facility]) Glucometer 05/13/2019 12:00:00 AM EST e CW1 ([facility]) Glucometer 05/13/2019 12:00:00 AM EST e CW1 ([facility]) Physical Therapy evaluate and treat 05/10/2019 12:00:00 AM EST eCW1 ([facility]) 3 ML Insulin, Aspart, Human 100 UNT/ML Pen Injector [N ovoLog] 05/03/2019 12:00:00 AM EST eCW1 ([facility]) Amlodipine 5 MG Oral Tablet 02/27/2019 12:00:00 AM EST [facility]
[2020-05-18] MEDS ORDERED: ACETAMINOPHEN TAB 650MG DOSE (2X325MG) PO ONE (00:15)
[2020-05-18] MEDS ORDERED: FERR1TAB8 PO (00:38)
[2020-05-18] MEDS ORDERED: SENN-53 PO (00:39)
[2020-05-18] MEDS ORDERED: METF10004 PO (00:41)
[2020-05-18] MEDS ORDERED: ESOM40CA35 PO (00:41)
[2020-05-18] MEDS ORDERED: LISI20TA33 PO (00:41)
[2020-05-18] MEDS ORDERED: AMLO1TAB24 PO (00:41)
[2020-05-18] MEDS ORDERED: TORS20TA2 PO (00:41)
[2020-05-18 00:52] LABS: HEMATOCRIT 29.2 % (42.0-52.0); HEMOGLOBIN 9.5 g/dl (13.5-17.5); MEAN CORPUSCULAR HEMOGLOBIN 28.4 pg (27.0-33.0); MEAN CORPUSCULAR HGB CONC 32.5 g/dl (32.0-36.5); MEAN CORPUSCULAR VOLUME 87.4 fl (80.0-96.0); PLATELET COUNT, AUTOMATED 291 10^3/uL (150-450); RED BLOOD COUNT 3.34 10^6/uL (4.30-6.10); WHITE BLOOD COUNT 19.5 10^3/uL (4.0-10.0)
[2020-05-18 01:13] LABS: BLOOD UREA NITROGEN 59 MG/DL (7-18); CARBON DIOXIDE LEVEL 19 MEQ/L (21-32); CHLORIDE LEVEL 96 MEQ/L (98-107); CREATININE FOR GFR 2.03 MG/DL (0.70-1.30); GLOMERULAR FILTRATION RATE 34.3 (>42); GLUCOSE, FASTING 488 MG/DL (70-100); INR 1.29; PARTIAL THROMBOPLASTIN TIME 30.7 SECONDS (24.2-38.5); POTASSIUM SERUM 3.2 MEQ/L (3.5-5.1); PROTHROMBIN TIME 16.4 SECONDS (12.5-14.3); SODIUM LEVEL 129 MEQ/L (136-145)
--- NOTE | 2020-05-18 01:13 | REPVR ---
PROCEDURE INFORMATION: Exam: XR Chest, 1 View Exam date and time: 05/18/2020 1:02 AM Age: 74 years old Clinical indication: Other: Weakness TECHNIQUE: Imaging protocol: XR of the chest Views: 1 view. COMPARISON: CR PORTABLE CHEST X-RAY 03/18/2020 7:55 PM FINDINGS: Lungs: Unremarkable. No consolidation. Pleural spaces: Unremarkable. No pleural effusion. No pneumothorax. Heart/Mediastinum: Unremarkable. No cardiomegaly. Bones/joints: Unremarkable. IMPRESSION: Negative chest without change from 03/18/2020. Electronically signed by: Giovanny Daiman On 05/18/2020 01:13:11 AM
[2020-05-18 01:14] LABS: ALBUMIN 2.6 GM/DL (3.2-5.2); ALT/SGPT 23 U/L (12-78); BILIRUBIN,DIRECT 0.1 MG/DL (0.0-0.2); BILIRUBIN,TOTAL 0.3 MG/DL (0.2-1.0); CALCIUM LEVEL 7.9 MG/DL (8.8-10.2); CK-MB VALUE MASS 8.1 NG/ML (<3.6); CPK CREATINE PHOSPHOKINASE 630 U/L (39-308); LIPASE 44 U/L (73-393); MB/CK RELATIVE INDEX 1.29 (< OR =4); TROPONIN I < 0.02 NG/ML (< 0.10)
[2020-05-18] MEDS ORDERED: HumuLIN R (REGULAR) INSULIN (NovoLIN R) **100U/ML** PER UNIT IV ONE (01:15)
[2020-05-18 01:24] LABS: LYMPHOCYTES 6 % (16-44); MONOCYTES 8 % (0-5); NEUTROPHILS 80 % (28-66); PLATELET ESTIMATE NORMAL (NORMAL)
[2020-05-18] MEDS ORDERED: POTASSIUM CHLORIDE 10 MEQ SR TABLET PO ONE (01:30)
[2020-05-18] MEDS ORDERED: MED REC COMMENT (01:37)
[2020-05-18] MEDS ORDERED: NS 500 ML IV ONE (01:45)
--- NOTE | 2020-05-18 02:59 | REPVR ---
PROCEDURE INFORMATION: Exam: CT Chest Without Contrast; Diagnostic Exam date and time: 05/18/2020 2:36 AM Age: 74 years old Clinical indication: Chest pain; Additional info: Hypoxia TECHNIQUE: Imaging protocol: Diagnostic computed tomography of the chest without contrast. 3D rendering (Not supervised by radiologist): MIP and/or 3D reconstructed images were created by the technologist. Radiation optimization: All CT scans at this facility use at least one of these dose optimization techniques: automated exposure control; mA and/or kV adjustment per patient size (includes targeted exams where dose is matched to clinical indication); or iterative reconstruction. COMPARISON: CT Chest without contrast 08/08/2016 5:40 AM FINDINGS: Lungs: Minimal dependent atelectasis in the lower lobes. No focal infiltrates. Pleural spaces: Unremarkable. No pneumothorax. No pleural effusion. Heart: Coronary artery calcifications are present. Pulmonary arteries: The main pulmonary artery measures 32 mm. Aorta: The ascending thoracic aorta measures 34 mm. Lymph nodes: Unremarkable. No enlarged lymph nodes. Gallbladder and bile ducts: There are several gallstones in the gallbladder. Bones/joints: Unremarkable. No acute fracture. Soft tissues: Unremarkable. IMPRESSION: 1. Cholelithiasis. 2. Minimal dependent atelectasis in the lower lobes with no interval infiltrates since 08/08/2016. Electronically signed by: Giovanny Damian On 05/18/2020 03:00:05 AM
[2020-05-18] MEDS ORDERED: NS 1,000 ML IV ONE (03:30)
[2020-05-18] MEDS ORDERED: DEXTROSE 50% 50 ML SYRINGE IV PRN (03:45)
[2020-05-18] MEDS ORDERED: GLUCAGON INJ 1MG VIAL SC PRN (03:45)
[2020-05-18] MEDS ORDERED: GLUCOSE 4GM CHEW TABLET PO PRN (03:45)
[2020-05-18] MEDS ORDERED: SODIUM CHLORIDE 0.9% 1000ML IV ONE (03:45)
[2020-05-18 03:57] LABS: ABG BASE EXCESS -8.1 (-2.0-2.0); ABG HCO3 16.7 MEQ/L (22.0-26.0); ABG O2 SATURATION 98.3 % (95.0-99.0); ABG PARTIAL PRESSURE CO2 31.5 mmHg (35.0-45.0); ABG PARTIAL PRESSURE O2 217.5 mmHg (75.0-100.0); ABG STANDARD HCO3 17.9 MEQ/L (22.0-26.0); ABG TOTAL CO2 17.6 MEQ/L (23.0-31.0); ABG pH (ARTERIAL) 7.341 UNITS (7.350-7.450)
--- OUTSIDE RECORDS SUMMARY | 2020-05-18 04:11 | CCD ---
Author Author [facility] [employer] Organization [facility] [employer] Address Unknown Phone Unavailable Care Team Providers Care Clinical Appeals Auditor Name Role Phone Cathleen Steen Unavailable PROBLEMS Type Condition ICD9-CM Code [id number] Code Onset Dates Condition S tatus W/U Status Risk SNOMED Code Notes Problem Status post below knee amputation Z89.519 Active confirmed 996113424 Definitely qualifies for continued home care assistance, forms are completed Problem Pure hypertriglyceridemia E78.1 Active confirmed [id number] We reviewed diet Problem DM neuro manif type II, uncontrolled E11.49 Act luca confirmed [id number] Again, I reminded Justo that he needs ba ilda insulin, and it is never good to skip a dose no matter what his blood sugar is. He will continue to work with our art educator Problem Long-term current use of insulin for diabetes mellitus Z79.4 Active confirmed 646809758 Problem Essential hypertension I10 Active confirmed 52347796 Likely controlled on current regimen, no medication changes have been made Problem Iron deficiency anemia D50.9 Active confirmed 08570820 Stable Problem Intracranial hemorrhage I62.9 Active confirmed 1407168 Recovering slowly, but he has helped. I encouraged him to keep calling his landlord until the bedbug problem his salt, so he can get in-home help as well. He will continue seeing our diabetes counselor. 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.42 Active confirmed 82163102 Problem Anxiety about health F41.8 Active confirmed 306307881 Problem Magnesium deficiency E61.2 Active confirmed 646192051 Well- controlled on magnesium 64 mg daily, no medication changes Problem Vitamin D deficiency E55.9 Active confirmed 17319105 Well controlled on current regimen of Drisdol 50,000 units, no changes Problem Hypocalcemia E83.51 Active confirmed 2450425 Improved on calcium 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 Active conf irmed [id number] Problem Type 2 diabetes mellitus with unspecified complications E11.8 Active confirmed 68708806 ALLERGIES Allergen (clinical drug ingredient) Drug/Non Drug Allergy do cumented on EMR Reaction Allergy Type Onset Date Status hydrochlorothiazide Hydrochlorothiazide([facility] Code:[address]-83) diarrhea Drug Allergy Active Guaifenesin blurry vision Drug Allergy Active statins myalgias Non Drug Allergy Active dapagliflozin Farxiga([facility] Code:[address]-41) lightheaded, marky seated Drug Allergy Active Penicillin V-potassium rash Drug Allergy Active ENCOUNTERS from 1945 to 2020-05-16 Encounter Location Date Provider Diagnosis [facility] [address] [place] [address] 17 Apr, 2020 [facility] IMMUN[facility] Vaccine Route Administration Date Status Influenza 18 yrs & older Flublok Unknown Nov 27, 2018 Administered Zoster 50mcg/0.5mL Shingrix Unknown August 18, 2017 Admi nistered Influenza (High Dose 65 & up) Unknown Nov 24, 2017 Ad ministered Pneumococcal 0.5mL Prevnar 13 Unknown Nov 20, 2014 Ad ministered SOCIAL HISTORY Tobacco Use: Social History Observation Description Date Details (start date - stop date) Never Smoker Sex Assigned At : Social History Observation Description Sex Assigned At Unknown Education: Question Answer Notes Level of Education: Not finished High School Audit Question Answer Notes Total Score: 0 Interpretation: Alcohol Education Sexual Hx: Question Answer Notes Had sex in the last 12 months (vaginal, oral, or anal)? No Have you ever had an STD? No Drug and Alcohol Question Answer Notes Total Score: 0 Interpretation: No problems reported BMI Care Goal Follow-Up Question Answer Notes Above Normal BMI Follow-Up Dietary management educatio n, guidance, and counseling Tobacco Use: Question Answer Notes Are you a: never smoker , never smoker REASON FOR REFERRAL No Information VITAL SIGNS No information MEDICATIONS Medication SIG (Take, Route, Frequency, Duration) Notes Start Da te End Date Status May have dx = v49.75 Medicare#[id number], Medicai d #[id number] for a right prosthetic leg as directed for 99 months Nov, Active Pioglitazone HCl 30 MG 1 tablet Orally Once a day Active Calcium + D3 600-200 MG-UNIT 1 tablet with food Orally Twice a day for 30 Days Not-Taking Alphagan P 0.1 % 1 drop into affected eye Ophthalmic Twice a day Active Glucose Blood - One Touch Ultra tst strips, dx=E11.49 dx=E11.49 3 times a day for 33 days Active July Z89.519 Medicare#[id number], Medicai d #[id number] (right BKA with prosthetic leg) Jan, Active Ezetimibe 10 MG 1 tablet Orally Once a day for 90 day(s) Active Physical Therapy evaluate and treat mechanical eval & tx Z89.519, s/p BKA 3 x/wk x for 30 Days Apr, Not-Taking Metformin HCl 1000 1 tablet with a meal Orally Twice a day for 90 day s Active Hydrochlorothiazide 25 1 tablet in the morning Orally Once a day for 90 days Active Humalog KwikPen 100 UNIT/ML 6 units Subcutaneous Three times a day Not-Taking Glucometer as directed Freeyle light for dx=E11.49 3 times a day for 365 days Apr, Active OneTouch Ultra - TEST THREE TIMES DAILY for 90 Active Mag64 64 MG 1 tablet Orally Twice a day for 90 days Active Acetaminophen ER 650 MG 2 tablets as needed Orally every 6 hrs Active Levemir Flex Touch 100 UNIT/ML 36 units QAM, 30 units QPM Subcutaneous Twice a day Active Lisinopril 20 MG 1 tablet Orally Once a day for 90 days Active Tab-A-Bharath/Iron - 1 tablet Orally Once a for 90 Active Lancets - E11.49 subcutaneously 3 times a day for 66 days Feb, Active Glucose 5 GM Orally once daily as needed Active Vitamin C 500 MG 1 tablet Orally Once a day Active Eucerin Original Healing Externally Active AmLODIPine Besylate 5 MG 1 tablet Orally Once a day for 30 Active Metformin HCl 1000 mg 1 tablet with meals Orally Twice a day for 90 Not-Taking NovoFine 32G X 6 MM dx=E11.49 for dx=E11.49 4 times a day for 25 days Active Latanoprost 0.005 % 1 drop into affected eye in the evening Ophthalmic Once a day Active NovoLog Flexpen 100 UNIT/ML 6 units Subcutaneous 3 times a day f or 30 days Apr, Active Drisdol 55948 UNIT 1 capsule Orally Once every 2 weeks for 90 da ys Mar, Active Esomeprazole Magnesium 40 MG 1 capsule Orally Once a day Active Calcium + D 600-200 MG-UNIT 1 tablet with food Orally Twice a day for 30 Active Ferrous Sulfate 325 (65 Fe) MG 1 tablet Orally 3 times a day for 90 day(s) Active PROCEDURES No Information RESULTS No Results REASON FOR VISIT Verbal orders for jail & PT MEDICAL (GENERAL) HISTORY Type Description Date Medical History hypertension Medical History hyperlipidemia Medical History GERD Medical History anemia of chronic disease Medical History status post right below-knee amputation Medical History T2DM IR c periperheral neuropathy, ho R BKA 1993, dx at 48Y Surgical History right below-knee amputation Surgical History appendectomy 1994 Hospitalization History surgery as above Hospitalization History intracranial hemorrhage with extende d rehabilitation 2019 Goals Section No Information Health Concerns No Information MEDICAL EQUIPMENT No Information MENTAL STATUS No Information FUNCTIONAL STATUS No Information ASSESSMENTS No Information PLAN OF TREATMENT Next Appt Details Provider Name:Josué Dougherty, 2020-05-28 0 9:45:00 AM, [address] [place], [address], Insurance Providers Payer Name Payer Address Payer Phone Insured Name Patient Relati onship to Insured Coverage Start Date Coverage End Date MEDICAID [employer] [address] [employer] [id number] [place] [employer] [facility] [address] [address] [facility] [id number] [place]
--- OUTSIDE RECORDS SUMMARY | 2020-05-18 04:12 | CCD ---
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 Name Role Phone Hubert Dyer MD Unavailable [...] Unavailable Enio, Cathleen PA Unavailable Unavailable Enio, Catlheen PA Unavailable Unavailable Enio, Cathleen PA Unavailable [...] Unavailable Enio, Cathleen PA Unavailable Unavailable MEDENT_23, [id number] Unavailable [phone] [facility], [id number] Unavailable [phone] [facility], [id number] Unavailable [phone] [facility], [id number] Unavailable [phone] [facility], [id number] Unavailable [phone] [facility], [id number] Unavailable [phone] [facility], [id number] Unavailable [phone] [facility], [id number] Unavailable [phone] [facility], [id number] Unavailable [phone] [facility], [id number] Unavailable [phone] MED[facility], [id number] Unavailable [phone] [facility] Un[facility] Unavailable Hubert Dyer MD [...] is protected by Article 27-F of the [facility] Public Health law. If you continue you may have access to information: Regarding HIV / AIDS; Provided by facilities licensed or operated by the [facility] Office of Mental Health; or Provided by the [facility] Office for People With Developmental Disabilities. If such information is present, then the following [facility] mandated warning applies: This information has been [...] allergy Farxiga dapagliflozin lightheaded, nauseated Active eCW1 ([facility]) Drug allergy Hydrochlorothiazide Hydrochlorothiazide diarrhea Activ e eCW1 ([facility]) Drug allergy Guaifenesin Drug allergy blurry vision Active eCW1 ([facility]) statins statins statins myalgias Active eCW1 ([facility]) Penicillin V-potassium Penicillin V-potassium Penicillin V-potassiu m rash Active eCW1 ([facility]) statins statins statins myalgias Active eCW1 ([facility]) Penicillin V-potassium Penicillin V-potassium Penicillin V-potassiu m rash Active eCW1 ([facility]) statins statins statins myalgias Active eCW1 ([facility]) Penicillin V-potassium Penicillin V-potassium Penicillin V-potassiu m rash Active eCW1 ([facility]) statins statins statins myalgias Active eCW1 ([facility]) Penicillin V-potassium Penicillin V-potassium Penicillin V-potassiu m rash Active eCW1 ([facility]) statins statins statins myalgias Active eCW1 ([facility]) Penicillin V-potassium Penicillin V-potassium Penicillin V-potassiu m rash Active eCW1 ([facility]) Encounters Encounter Providers Location Date Indications Data Source(s ) Unknown [address] [facility] [address] 05/13/2020 12:00:00 AM EST eCW1 ([facility]) Outpatient Attender: Jacqueline Dyer MDConsultant: [facility] [id number] 05/08/2020 08:10:00 PM [facility] Inpatient Attender: [phone] MEDENT_ 23Attender: Jordan Brice DOAdmitter: Jordan Brice DO EMERGENCY ROOM-2N 05/02/2020 02:40:00 PM EST - 05/13/2020 10:20:00 AM [facility] Patient discharged. Inpatient Attender: Jacqueline Dyer MDAdmitter: Jacqueline Dyer MD EMERGENCY ROOM-2N 04/29/2020 03:00:00 PM EST - 05/02/2020 02:39:00 PM [facility] Patient discharged. Outpatient Attender: Jacqueline Dyer MDConsultant: [facility] [id number] 04/29/2020 02:50:00 AM [facility] Inpatient Attender: Jacqueline Dyer MDAdmitter: Jacqueline Dyer MD EMERGENCY ROOM-2N 04/15/2020 11:09:00 AM EST - 04/29/2020 02:59:00 PM [facility] Patient discharged. Unknown [address] [facility] [address] 03/12/2020 12:00:00 AM EST eCW1 ([facility]) Outpatient [address] [facility] [address] 03/12/2020 12:00:00 AM EST eCW1 ([facility]) Unknown [address] [facility] [address] 03/03/2020 12:00:00 AM EST eCW1 ([facility]) Unknown [address] [facility] [address] 02/27/2020 12:00:00 AM EST eCW1 ([facility]) Unknown [address] [facility] [address] 02/24/2020 12:00:00 AM EST eCW1 ([facility]) Unknown [address] [facility] [address] 02/12/2020 12:00:00 AM EST eCW1 ([facility]) Outpatient [address] [facility] [address] 02/12/2020 12:00:00 AM EST eCW1 ([facility]) Unknown [address] [facility] [address] 01/23/2020 12:00:00 AM EDT eCW1 ([facility]) Outpatient [address] [facility] [address] 01/06/2020 12:00:00 AM EDT eCW1 ([facility]) Unknown [address] [facility] [address] 01/06/2020 12:00:00 AM EDT eCW1 ([facility]) Unknown [address] [facility] [address] 12/31/2019 12:00:00 AM EDT eCW1 ([facility]) [facility] [place] [address] [facility] [address] 10/17/2019 12:00:00 AM EDT eCW1 ([facility]) Outpatient [address] [facility] [address] 09/12/2019 12:00:00 AM EDT eCW1 ([facility]) Unknown [address] [facility] [address] 09/10/2019 12:00:00 AM EDT eCW1 ([facility]) Unknown [address] [facility] [address] 09/05/2019 12:00:00 AM EDT eCW1 ([facility]) [facility] [address] [place] [address] [place] [address] 08/15/2019 12:00:00 AM EDT eCW1 ([facility]) [facility] [address] [place] [address] [place] [address] 08/14/2019 12:00:00 AM EDT eCW1 ([facility]) [facility] [address] [facility] [address] 08/07/2019 12:00:00 AM EDT eCW1 ([facility]) [address] [place] [address] 07/31/2019 12:00:00 AM EDT eCW1 ([facility]) Outpatient Attender: Cathleen PHAM 07/26/2019 10:14:0 0 AM EDT Lab [facility] [place] [address] [facility] [address] 07/26/2019 12:00:00 AM EDT eCW1 ([facility]) [address] [place] [address] 07/18/2019 12:00:00 AM EDT eCW1 ([facility]) [facility] [address] [place] [address] [place] [address] 07/18/2019 12:00:00 AM EDT eCW1 ([facility]) [address] [place] [address] 07/17/2019 12:00:00 AM EDT eCW1 ([facility]) [facility] [place] [address] [facility] [address] 07/12/2019 12:00:00 AM EDT eCW1 ([facility]) [facility] [place] [address] [facility] [address] 07/11/2019 12:00:00 AM EDT eCW1 ([facility]) [facility] [place] [address] [facility] [address] 07/09/2019 12:00:00 AM EDT eCW1 ([facility]) [facility] [address] [facility] [address] 07/08/2019 12:00:00 AM EDT eCW1 ([facility]) [facility] [place] [address] [facility] [address] 07/03/2019 12:00:00 AM EDT eCW1 ([facility]) [facility] [place] [address] [facility] [address] 07/03/2019 12:00:00 AM EDT eCW1 ([facility]) [facility] [place] [address] [facility] [address] 06/25/2019 12:00:00 AM EDT eCW1 ([facility]) [facility] [place] [address] [facility] [address] 06/06/2019 12:00:00 AM EDT eCW1 ([facility]) [facility] [place] [address] [facility] [address] 05/31/2019 12:00:00 AM EST eCW1 ([facility]) [facility] [place] [address] [facility] [address] 05/30/2019 12:00:00 AM EST eCW1 ([facility]) [facility] [place] [address] [facility] [address] 05/23/2019 12:00:00 AM EST eCW1 ([facility]) [facility] [place] [address] [facility] [address] 05/17/2019 12:00:00 AM EST eCW1 ([facility]) [facility] [place] [address] [facility] [address] 05/13/2019 12:00:00 AM EST eCW1 ([facility]) [facility] [place] [address] [facility] [address] 05/10/2019 12:00:00 AM EST eCW1 ([facility]) [facility] [address] [facility] [address] 05/08/2019 12:00:00 AM EST eCW1 ([facility]) [facility] [place] [address] [facility] [address] 05/02/2019 12:00:00 AM EST eCW1 ([facility]) [facility] [place] [address] [facility] [address] 04/23/2019 12:00:00 AM EST eCW1 ([facility]) [facility] [place] [address] [facility] [address] 04/23/2019 12:00:00 AM EST eCW1 ([facility]) [facility] [place] [address] [facility] [address] 04/22/2019 12:00:00 AM EST eCW1 ([facility]) Outpatient Attender: Cathleen PHAM 04/16/2019 10:21:0 0 AM EST lab [facility] [place] [address] [place] [address], [place] [address] 04/16/2019 12:00:00 AM EST eCW1 ([facility]) [facility] [place] [address] [place] [address], [place] [address] 04/11/2019 12:00:00 AM EST eCW1 ([facility]) [facility] [place] [address] [facility] [address] 04/09/2019 12:00:00 AM EST eCW1 ([facility]) Outpatient Attender: JESSICA SIMMONS 04/01/2019 12:00:00 A M [facility] [place] [address] [facility] [address] 03/28/2019 12:00:00 AM EST eCW1 ([facility]) [facility] [place] [address] [facility] [address] 03/25/2019 12:00:00 AM EST eCW1 ([facility]) Outpatient Attender: JESSICA SIMMONS 03/22/2019 12:00:00 A M [facility] Outpatient 01/25/2018 12:00:00 AM EDT - 01/25/2018 11:59:00 PM EDT [facility] Patient discharged. Medications Medication Brand Name Start Date Product Form Dose Route Admi nistrative Instructions Pharmacy Instructions Status Indications Reaction Description Data Source(s) Glucometer UNK 05/13/2019 12:00:00 AM EST active Glucometer eCW1 ([facility]) Glucometer UNK 05/13/2019 12:00:00 AM EST active as directed eCW1 ([facility]) Glucometer UNK 05/13/2019 12:00:00 AM EST active Glucometer eCW1 ([facility]) Glucometer UNK 05/13/2019 12:00:00 AM EST active Glucometer eCW1 ([facility]) Glucometer UNK 05/13/2019 12:00:00 AM EST active as directed eCW1 ([facility]) Glucometer UNK 05/13/2019 12:00:00 AM EST active as directed eCW1 ([facility]) Glucometer UNK 05/13/2019 12:00:00 AM EST active Glucometer eCW1 ([facility]) Glucometer UNK 05/13/2019 12:00:00 AM EST active Glucometer eCW1 ([facility]) Glucometer UNK 05/13/2019 12:00:00 AM EST active Glucometer eCW1 ([facility]) Glucometer UNK 05/13/2019 12:00:00 AM EST active Glucometer eCW1 ([facility]) Glucometer UNK 05/13/2019 12:00:00 AM EST active as directed eCW1 ([facility]) Glucometer UNK 05/13/2019 12:00:00 AM EST active as directed eCW1 ([facility]) Glucometer UNK 05/13/2019 12:00:00 AM EST active Glucometer eCW1 ([facility]) Glucometer UNK 05/13/2019 12:00:00 AM EST active as directed eCW1 ([facility]) Glucometer UNK 05/13/2019 12:00:00 AM EST active as directed eCW1 ([facility]) Glucometer UNK 05/13/2019 12:00:00 AM EST active Glucometer eCW1 ([facility]) Glucometer UNK 05/13/2019 12:00:00 AM EST active Glucometer eCW1 ([facility]) Glucometer UNK 05/13/2019 12:00:00 AM EST active Glucometer eCW1 ([facility]) Glucometer UNK 05/13/2019 12:00:00 AM EST active Glucometer eCW1 ([facility]) Glucometer UNK 05/13/2019 12:00:00 AM EST active Glucometer eCW1 ([facility]) Glucometer UNK 05/13/2019 12:00:00 AM EST active Glucometer eCW1 ([facility]) Glucometer UNK 05/13/2019 12:00:00 AM EST active Glucometer eCW1 ([facility]) Physical Therapy evaluate and treat UNK 05/10/2019 12:00:00 AM EST active mechanical eval & tx eCW1 ([facility]) Physical Therapy evaluate and treat UNK 05/10/2019 12:00:00 AM EST suspended Physical Therapy evaluate and tr eat eCW1 ([facility]) Physical Therapy evaluate and treat UNK 05/10/2019 12:00:00 AM EST suspended Physical Therapy evaluate and tr eat eCW1 ([facility]) Physical Therapy evaluate and treat UNK 05/10/2019 12:00:00 AM EST active Physical Therapy evaluate and tr eat eCW1 ([facility]) Physical Therapy evaluate and treat UNK 05/10/2019 12:00:00 AM EST suspended Physical Therapy evaluate and tr eat eCW1 ([facility]) Physical Therapy evaluate and treat UNK 05/10/2019 12:00:00 AM EST active Physical Therapy evaluate and tr eat eCW1 ([facility]) Physical Therapy evaluate and treat UNK 05/10/2019 12:00:00 AM EST suspended Physical Therapy evaluate and tr eat eCW1 ([facility]) Physical Therapy evaluate and treat UNK 05/10/2019 12:00:00 AM EST active Physical Therapy evaluate and tr eat eCW1 ([facility]) Physical Therapy evaluate and treat UNK 05/10/2019 12:00:00 AM EST active mechanical eval & tx eCW1 ([facility]) Physical Therapy evaluate and treat UNK 05/10/2019 12:00:00 AM EST active mechanical eval & tx eCW1 ([facility]) Physical Therapy evaluate and treat UNK 05/10/2019 12:00:00 AM EST suspended Physical Therapy evaluate and tr eat eCW1 ([facility]) Physical Therapy evaluate and treat UNK 05/10/2019 12:00:00 AM EST active mechanical eval & tx eCW1 ([facility]) Physical Therapy evaluate and treat UNK 05/10/2019 12:00:00 AM EST suspended Physical Therapy evaluate and tr eat eCW1 ([facility]) Physical Therapy evaluate and treat UNK 05/10/2019 12:00:00 AM EST active Physical Therapy evaluate and tr eat eCW1 ([facility]) Physical Therapy evaluate and treat UNK 05/10/2019 12:00:00 AM EST active mechanical eval & tx eCW1 ([facility]) Physical Therapy evaluate and treat UNK 05/10/2019 12:00:00 AM EST active mechanical eval & tx eCW1 ([facility]) Physical Therapy evaluate and treat UNK 05/10/2019 12:00:00 AM EST suspended Physical Therapy evaluate and tr eat eCW1 ([facility]) Physical Therapy evaluate and treat UNK 05/10/2019 12:00:00 AM EST active mechanical eval & tx eCW1 ([facility]) Physical Therapy evaluate and treat UNK 05/10/2019 12:00:00 AM EST suspended Physical Therapy evaluate and tr eat eCW1 ([facility]) Physical Therapy evaluate and treat UNK 05/10/2019 12:00:00 AM EST suspended Physical Therapy evaluate and tr eat eCW1 ([facility]) Physical Therapy evaluate and treat UNK 05/10/2019 12:00:00 AM EST suspended Physical Therapy evaluate and tr eat eCW1 ([facility]) Physical Therapy evaluate and treat UNK 05/10/2019 12:00:00 AM EST active mechanical eval & tx eCW1 ([facility]) Physical Therapy evaluate and treat UNK 05/10/2019 12:00:00 AM EST suspended Physical Therapy evaluate and tr eat eCW1 ([facility]) 3 ML Insulin, Aspart, Human 100 UNT/ML P en Injector [NovoLog] NovoLog Flexpen 100 UNIT/ML NovoLog Flexpen 100 UNIT/ML 05/03/2019 12:00:00 AM EST active NovoLog Flexpen 100 UNIT/ML eCW1 ([facility]) 3 ML Insulin, Aspart, Human 100 UNT/ML P en Injector [NovoLog] NovoLog Flexpen 100 UNIT/ML NovoLog Flexpen 100 UNIT/ML 05/03/2019 12:00:00 AM EST active 6 units eCW1 ([facility]) 3 ML Insulin, Aspart, Human 100 UNT/ML P en Injector [NovoLog] NovoLog Flexpen 100 UNIT/ML NovoLog Flexpen 100 UNIT/ML 05/03/2019 12:00:00 AM EST active 6 units eCW1 ([facility]) 3 ML Insulin, Aspart, Human 100 UNT/ML P en Injector [NovoLog] NovoLog Flexpen 100 UNIT/ML NovoLog Flexpen 100 UNIT/ML 05/03/2019 12:00:00 AM EST active 6 units eCW1 ([facility]) 3 ML Insulin, Aspart, Human 100 UNT/ML P en Injector [NovoLog] NovoLog Flexpen 100 UNIT/ML NovoLog Flexpen 100 UNIT/ML 05/03/2019 12:00:00 AM EST active NovoLog Flexpen 100 UNIT/ML eCW1 ([facility]) 3 ML Insulin, Aspart, Human 100 UNT/ML P en Injector [NovoLog] NovoLog Flexpen 100 UNIT/ML NovoLog Flexpen 100 UNIT/ML 05/03/2019 12:00:00 AM EST active NovoLog Flexpen 100 UNIT/ML eCW1 ([facility]) 3 ML Insulin, Aspart, Human 100 UNT/ML P en Injector [NovoLog] NovoLog Flexpen 100 UNIT/ML NovoLog Flexpen 100 UNIT/ML 05/03/2019 12:00:00 AM EST active NovoLog Flexpen 100 UNIT/ML eCW1 ([facility]) 3 ML Insulin, Aspart, Human 100 UNT/ML P en Injector [NovoLog] NovoLog Flexpen 100 UNIT/ML NovoLog Flexpen 100 UNIT/ML 05/03/2019 12:00:00 AM EST active NovoLog Flexpen 100 UNIT/ML eCW1 ([facility]) 3 ML Insulin, Aspart, Human 100 UNT/ML P en Injector [NovoLog] NovoLog Flexpen 100 UNIT/ML NovoLog Flexpen 100 UNIT/ML 05/03/2019 12:00:00 AM EST active 6 units eCW1 ([facility]) 3 ML Insulin, Aspart, Human 100 UNT/ML P en Injector [NovoLog] NovoLog Flexpen 100 UNIT/ML NovoLog Flexpen 100 UNIT/ML 05/03/2019 12:00:00 AM EST active 6 units eCW1 ([facility]) 3 ML Insulin, Aspart, Human 100 UNT/ML P en Injector [NovoLog] NovoLog Flexpen 100 UNIT/ML NovoLog Flexpen 100 UNIT/ML 05/03/2019 12:00:00 AM EST active NovoLog Flexpen 100 UNIT/ML eCW1 ([facility]) 3 ML Insulin, Aspart, Human 100 UNT/ML P en Injector [NovoLog] NovoLog Flexpen 100 UNIT/ML NovoLog Flexpen 100 UNIT/ML 05/03/2019 12:00:00 AM EST active NovoLog Flexpen 100 UNIT/ML eCW1 ([facility]) 3 ML Insulin, Aspart, Human 100 UNT/ML P en Injector [NovoLog] NovoLog Flexpen 100 UNIT/ML NovoLog Flexpen 100 UNIT/ML 05/03/2019 12:00:00 AM EST active NovoLog Flexpen 100 UNIT/ML eCW1 ([facility]) 3 ML Insulin, Aspart, Human 100 UNT/ML P en Injector [NovoLog] NovoLog Flexpen 100 UNIT/ML NovoLog Flexpen 100 UNIT/ML 05/03/2019 12:00:00 AM EST active NovoLog Flexpen 100 UNIT/ML eCW1 ([facility]) 3 ML Insulin, Aspart, Human 100 UNT/ML P en Injector [NovoLog] NovoLog Flexpen 100 UNIT/ML NovoLog Flexpen 100 UNIT/ML 05/03/2019 12:00:00 AM EST active NovoLog Flexpen 100 UNIT/ML eCW1 ([facility]) 3 ML Insulin, Aspart, Human 100 UNT/ML P en Injector [NovoLog] NovoLog Flexpen 100 UNIT/ML NovoLog Flexpen 100 UNIT/ML 05/03/2019 12:00:00 AM EST active NovoLog Flexpen 100 UNIT/ML eCW1 ([facility]) 3 ML Insulin, Aspart, Human 100 UNT/ML P en Injector [NovoLog] NovoLog Flexpen 100 UNIT/ML NovoLog Flexpen 100 UNIT/ML 05/03/2019 12:00:00 AM EST active NovoLog Flexpen 100 UNIT/ML eCW1 ([facility]) 3 ML Insulin, Aspart, Human 100 UNT/ML P en Injector [NovoLog] NovoLog Flexpen 100 UNIT/ML NovoLog Flexpen 100 UNIT/ML 05/03/2019 12:00:00 AM EST active 6 units eCW1 ([facility]) 3 ML Insulin, Aspart, Human 100 UNT/ML P en Injector [NovoLog] NovoLog Flexpen 100 UNIT/ML NovoLog Flexpen 100 UNIT/ML 05/03/2019 12:00:00 AM EST active NovoLog Flexpen 100 UNIT/ML eCW1 ([facility]) 3 ML Insulin, Aspart, Human 100 UNT/ML P en Injector [NovoLog] NovoLog Flexpen 100 UNIT/ML NovoLog Flexpen 100 UNIT/ML 05/03/2019 12:00:00 AM EST active 6 units eCW1 ([facility]) 3 ML Insulin, Aspart, Human 100 UNT/ML P en Injector [NovoLog] NovoLog Flexpen 100 UNIT/ML NovoLog Flexpen 100 UNIT/ML 05/03/2019 12:00:00 AM EST active NovoLog Flexpen 100 UNIT/ML eCW1 ([facility]) 3 ML Insulin, Aspart, Human 100 UNT/ML P en Injector [NovoLog] NovoLog Flexpen 100 UNIT/ML NovoLog Flexpen 100 UNIT/ML 05/03/2019 12:00:00 AM EST active NovoLog Flexpen 100 UNIT/ML eCW1 ([facility]) 3 ML Insulin, Aspart, Human 100 UNT/ML P en Injector [NovoLog] NovoLog Flexpen 100 UNIT/ML NovoLog Flexpen 100 UNIT/ML 05/03/2019 12:00:00 AM EST active 6 units eCW1 ([facility]) Amlodipine 5 MG Oral Tablet amLODIPine Besylate 5 MG O ral Tablet (NORVASC) amLODIPine Besylate 5 MG Oral Tablet (NORVASC) 02/27/2019 12:00:00 AM EST 5 mg Oral active Take 1 tablet by mouth [facility] Insurance Providers Payer name Policy type / Coverage type Policy ID Covered republican ID Covered republican's relationship to brown Policy Brown Plan Information HUMANA GOLD [id number] SP [id number] HUMANA GOLD CLASSIC [id number] S [id number] [id number] [id number] SP [id number] [facility] MEDICARE [id number] SP [id number] [facility] [id number] SP [id number] HUMANA GOLD [id number] SP [id number] MEDICAID M [id number] Self [id number] [id number] UNITED MEDICARE DUAL G [id number] Self [id number] SELF PAY MEDICAID [facility] [id number] SP [id number] HUMANA MEDICARE ADV [id number] SP [id number] MEDICAID [id number] SP [id number] BHARAT MEDICARE ADV [id number] SP [id number] SELF [facility] [id number] SP [id number] MEDICARE [id number] SP [id number] MEDICARE [id number] SP [id number] UNITED HEALTHCARE MGD MEDICARE [id number] SP [id number] UNITED HEALTHCARE(MCAID) O [id number] S [id number] MEDICAID M [id number] S [id number] SELF PAY UNITED HE[employer]CARE MGD MEDICARE [id number] SP [id number] UNITED HEALTHCARE(MCAID) O [id number] S [id number] SELF PAY MEDICAID [facility] [id number] SP [id number] ANSI-Health Maintenance Organization ( O) [id number] ANSI-Medicaid [id number] ANSI-Medicare Part B [id number] ANSI-Not a Secondary Insurance [id number] ANSI-Medicare Part B [id number] ANSI-Not a Secondary Insurance [id number] ANSI-Health Maintenance Organization (HM O) [id number] ANSI-Medicaid [id number] ANSI-Not a Secondary Insurance [id number] ANSI-Health Maintenance Organization ( O) [id number] ANSI-Medicare Part B [id number] ANSI-Medicaid [id number] ANSI-Medicare Part B [id number] ANSI-Medicaid [id number] ANSI-Not a Secondary Insurance [id number] ANSI-Health Maintenance Organization ( O) 65g8t76y-60g4-0430-2498-w87q1pirx413 49c0d53y-20t4-4157-9162-j79h7nqgf743 ANSI-Health Maintenance Organization ( O) [id number]-o069-2970-j991-5b6nz65vz479 6gr95tr1-i396-1141-o265-3a4yb35dd045 ANSI-Medicare Part B [id number] ANSI-Medicaid [id number] ANSI-Not a Secondary Insurance [id number]-xgme-2tm28 [id number] w4r9a7u6-4j76-84b6-hgal-9fl748jz66gh [employer] [id number] SP [id number] [place] OPTIONS [id number] SP [id number] [facility] COMM[facility] PLAN [id number] SP [id number] [facility] [id number] SP [id number] ANSI-Health Maintenance Organization (HM O) [id number]-[id number]-00s7-6d96-4a1a-a322kp89k54e ANSI-Medicaid [id number] ANSI-Medicare Part B [id number] ANSI-Not a Secondary Insurance nerp40c4-41h9-17df-2204-g54y3 41dca33 hzpl20o5-97s3-28rk-3952-b74j135fbh75 ANSI-Medicare Part B [id number] ANSI-Health Maintenance Organization (HM O) [id number]-[id number] [id number]-[id number] ANSI-Not a Secondary Insurance yt1r2p14-a327-880b-x713-03084 [id number] pi1s9m28-c767-012j-m814-91493599112s ANSI-Medicaid [id number] ANSI-Medicaid [id number] ANSI-Health Maintenance Organization ( O) [id number]-7jn7-5akn-p785-9n79vny7hq60 m2125k2l-2xg3-2bzb-j541-2b39asr6tx95 ANSI-Not a Secondary Insurance gfijt3w1-1539-853h-97s4-z979y [id number] nymzq4s7-8910-713i-46l6-[id number] ANSI-Medicare Part B [id number] ANSI-Medicare Part B [id number]-[id number] ANSI-Health Maintenance Organization ( O) lzt72i05-2163-66f1-dfpe-vf96mx14r0w7 cgh91d11-6108-13s0-amck-gm22jb30k9h1 ANSI-Not a Secondary Insurance [id number]-a705-4d70-305l-99o80 m049ox4 653r5x54-r537-3l89-439k-45d07v890lp6 ANSI-Medicaid [id number] ANSI-Health Maintenance Organization (HM O) [id number]-[id number]-93pm16260377 ANSI-Medicare Part B [id number] ANSI-Medicaid [id number] ANSI-Not a Secondary Insurance [id number]55 o2vq891 34617k21-6524-66g7-0oj5-96895t9yc956 ANSI-Medicaid [id number] ANSI-Medicare Part B [id number] ANSI-Not a Secondary Insurance 201z2p90-70x6-1636-1845-k1157 f4as9a6 513f8v36-47z9-4613-4655-x4105v0vv9j1 ANSI-Health Maintenance Organization ( O) a708zqtn-5bjf-38mz-yy6l-f9787w054v8j k702vqfl-4hzc-44vn-yg9m-r3414h384o5e Medicaid of [place] Other 0 Self 0 [facility] Other 0 Self 0 ANSI-Medicare Part B [id number] ANSI-Health Maintenance Organization ( O) s422s460-7pkj-69oq-91e5-83t057q9qe04 a888p651-7bsw-03uv-06e3-57p878f7tj76 ANSI-Medicaid [id number] ANSI-Not a Secondary Insurance [id number]-s050-57jg-l6ou-57w49 [id number] 6w5l85kk-h808-75et-s9xn-25d268y50668 ANSI-Not a Secondary Insurance [id number]-qy4m-6113-n11x-ym054 23r06c0 h6594pde-gw0h-0321-t56j-hu11458o28p4 ANSI-Health Maintenance Organization ( O) [id number]-2876-296i-672j71a44037 [id number]-5203-255p-362i73p89471 ANSI-Medicare Part B [id number] ANSI-Medicaid [id number]-3t80-p4i9-b6z5fl6win6w ANSI-Medicaid [id number] ANSI-Health Maintenance Organization ( O) h804p0tp-72d9-7967-5142-5w740808qe96 k998k4ag-91m9-9452-2793-2a036424zk79 ANSI-Not a Secondary Insurance [id number]-3265-9824-nf23-sij7n 434i62p 14q2262k-1186-7113-pf76-yma2q626w76m ANSI-Health Maintenance Organization ( O) c489h7n1-yv99-9976-8dqj-6333916953b1 j117j2i6-hc44-6265-9vqr-2532910688b0 ANSI-Not a Secondary Insurance [id number]-z320-97dd-69lx-594um 3954xl9 41542t75-x543-03yj-00qj-661wr7317eb7 ANSI-Medicaid [id number] ANSI-Not a Secondary Insurance [id number]-pj4e-41e2-cym8-23128 3033f05 8yw37022-lh7v-21s7-lsy0-799319303p83 ANSI-Health Maintenance Organization ( O) 0m1wc5e3-8ar4-5jt6-5959-22hb927ly6t9 0q4he8t5-0dy3-6yf7-5701-51rx943ph3h5 ANSI-Medicaid [id number] ANSI-Medicaid [id number] ANSI-Not a Secondary Insurance 86v1g0y1-0o48-2t4r-i5tj-66767 w2n420k 94k3w1y0-3f60-3c8a-f5ud-32573l7e959p ANSI-Medicaid [id number] ANSI-Not a Secondary Insurance 7429vif1-l799-3y7p-818r-6esu7 2ln70t9 2174vjn7-x104-1g5u-851z-5exm73oo25l7 ANSI-Not a Secondary Insurance 708oo0f4-u2a6-71xk-8287-49os2 93x9c54 522po4c8-o7i5-07oi-3097-08xq459k5b52 ANSI-Medicaid [id number] ANSI-Not a Secondary Insurance h797c725-c1je-0l18-o737-69949 fa3u8x7 h031b413-n2hk-2x48-a364-64299aj0k8w6 ANSI-Medicaid [id number] ANSI-Medicaid [id number] ANSI-Not a Secondary Insurance 54p47r26-6288-948s-0rb3-2x27o 307wa82 07g04x62-9393-555e-1cu6-2v77x696my94 S[employer] [place] MED[facility]ID [facility] [id number] ANSI-Medicaid [id number] ANSI-Not a Secondary Insurance 311bo0sf-o546-16n8-2uc9-x06l7 95636f0 552ti7na-b226-56m1-9iw2-f06e518740x7 ANSI-Not a Secondary Insurance 252z3v20-641t-5399-n3j8-ln3nc 378p522 852q2k55-098g-7121-z3g4-er3xy760i049 ANSI-Medicaid [id number] ANSI-Medicaid [id number] ANSI-Health Maintenance Organization ( O) 7sg3i360-bn5o-685v-8370-17w4550t993k 3gg7f850-ek0g-930p-5148-07b5550l075t ANSI-Health Maintenance Organization ( O) n7j9u0k6-9kc2-317h-009j-8k5nu55761yp p8a1h0z3-5jg2-284d-350a-8r4kw80369fv ANSI-Medicaid [id number] ANSI-Health Maintenance Organization ( O) [id number]-0sa1-12i6-6q70-nj2w27197d9v 9c6c406v-0mx4-72h4-7o40-ow1o18263j8a ANSI-Medicaid [id number] ANSI-Health Maintenance Organization ( O) [id number]-o3o5-759i-9p9v-[id number] 90904919-u0j7-691y-2z3l-a141u8847090 ANSI-Medicaid [id number] ANSI-Health Maintenance Organization ( O) 4ums8xnz-t138-7x97-wy1r-9h7k200h8636 4wlc8uzr-r739-1r86-ca7s-9s1p318r9924 ANSI-Medicaid [id number] ANSI-Medicaid [id number] ANSI-Health Maintenance Organization ( O) [id number]517ew835e8 y7j07205-6327-6524-1013-16570xn722u8 ANSI-Medicare Part B [id number] ANSI-Medicaid [id number] [facility] [id number]-rxs9-7569-4dbi-[id number] t5242e80-tqf6-5047-7ryb-80u1k8f37783 ANSI-Medicaid [id number]-36p5-10jk56j5-55mp-[id number] ANSI-Medicare Part B [id number] ANSI-Medicaid [id number] ANSI-Medicare Part B [id number] ANSI-Medicaid [id number] ANSI-Medicaid [id number] ANSI-Medicare Part B [id number] ANSI-Medicaid [id number] ANSI-Medicare Part B [id number]-9t8b-5983wm54deo9 ANSI-Medicare Part B [id number] ANSI-Medicaid [id number]-[id number] ANSI-Medicare Part B [id number] ANSI-Medicaid [id number]-rm7l-[id number] ANSI-Medicare Part B [id number] ANSI-Medicaid [id number] ANSI-Medicare Part B [id number] ANSI-Medicaid [id number]-[id number]-[id number]-[id number] ANSI-Medicare Part B [id number] ANSI-Medicaid [id number]-hef8-0119-kht1-[id number] ANSI-Medicare Part B [id number] ANSI-Medicaid [id number] ANSI-Medicaid [id number] ANSI-Medicare Part B [id number] ANSI-Medicaid [id number]-[id number] ANSI-Medicare Part B [id number] [employer]IONS MCR [id number] SP 1 [id number] MED[facility]ID [facility] [id number] SP [id number] ANSI-Medicaid [id number] ANSI-Medicare Part B [id number] ANSI-Medicaid [id number] ANSI-Medicare Part B [id number] ANSI-Medicaid [id number] ANSI-Medicare Part B [id number] [employer] OPTIONS MCR [id number] SP 1 [id number] ANSI-Medicare Part B [id number] ANSI-Medicaid [id number] [facility]ICAID [facility] [id number] SP BW [id number] ANSI-Medicare Part B [id number] ANSI-Medicaid [id number] MEDICARE [id number] SP [id number] A [employer] OPTIONS [id number] SP [id number] ANSI-Medicare Part B [id number] ANSI-Medicaid [id number] Medicaid of [place] Other 0 Self 0 Medicare Part A [facility] Other 0 Self 0 MEDICARE [id number] SP [id number] ANSI-Medicaid [id number] ANSI-Medicare Part B [id number] ANSI-Medicaid [id number] ANSI-Medicare Part B [id number] ANSI-Medicaid [id number] ANSI-Medicare Part B [id number] ANSI-Medicare Part B [id number] [facility]-Medicaid [id number] [facility]-Medicare Part B [id number] [facility]-Medicaid [id number] Medicaid - [place] [id number] Medica id [id number] ID IDENTIFICATION [id number] Other In surance [id number] [employer]IONS [id number] Commercial Insurance [id number] [employer] OPTIONS/EQUATORIAL GUINEAN O [id number] O [id number] MEDICARE COMPLETE [id number] SP [id number] MEDICARE COMPLETE [id number] SP [id number] MEDICARE COMPLETE UNAVAILABLE SP UNAVAILABLE [facility] [id number] SP [id number] MEDICARE [id number] SP [id number] A Medicare [facility] Medicare Primary Self Medicare [facility] [place] Medicare Primary Self MEDICAID [facility] UNAVAILABLE SP UNAVAILABLE MEDICARE [id number] SP [id number] Problems, Conditions, and Diagnoses Code Display Name Description Problem Type Effective Dates Data Source(s) F41.8 [id number] Anxiety about health Problem 07/03/2019 12:0 0:00 AM EDT eCW1 ([facility]) F41.8 [id number] Anxiety about health Problem 07/03/2019 12:0 0:00 AM EDT eCW1 ([facility]) I62.9 [id number] Intracranial hemorrhage Problem 04/11/2019 1 2:00:00 AM EST eCW1 ([facility]) I62.9 [id number] Intracranial hemorrhage Problem 04/11/2019 1 2:00:00 AM 1 ([facility]) Z66 Do not resuscitate DO NOT RESUSCITATE Diagnosis 02:40:00 PM [facility] Z90.89 Acquired absence of other organs ACQUIRED ABSENC E OF OTHER ORGANS Diagnosis 05/02/2020 02:40:00 PM [facility] Z87.39 Personal history of other di seases of the musculoskeletal system and connective tissue PERSONAL HISTORY OF DISEASES OF THE MS SYS AND CON Diagnosis 05/02/2020 02:40:00 PM [facility] Z89.511 Acquired absence of right leg below knee ACQUIRED ABSENCE OF RIGHT LEG BELOW KNEE Diagnosis 05/02/2020 02:40:00 PM [facility] 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 DETENTION (CU RRENT) USE OF ASPIRIN Diagnosis 05/02/2020 02:40:00 PM [facility] Z79.4 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 Diagnosis 05/02/2020 02:40:00 PM [facility] G31.9 Degenerative disease of nervous system, unspecified DEGENERATIVE DISEASE OF NERVOUS SYSTEM, UNSPECIFIE Diagnosis 05/02/2020 02:40:00 PM [facility] J44.9 Chronic obstructive pulmonary disease, u nspecified CHRONIC OBSTRUCTIVE PULMONARY DISEASE, UNSPECIFIED Diagnosis 05/02/2020 02:40:00 PM [facility] E61.1 Iron deficiency IRON DEFICIENCY Diagnosis 05/02/2020 02:4 0:00 PM [facility] F41.9 Anxiety disorder, unspecified ANXIETY DISORDER, UNSPEC IFIED Diagnosis 05/02/2020 02:40:00 PM [facility] R79.89 Other specified abnormal findings of blo od chemistry OTHER SPECIFIED ABNORMAL FINDINGS OF BLOOD ORDER TAKER Diagnosis 05/02/2020 02:40:00 PM [facility] E87.6 Hypokalemia HYPOKALEMIA Diagnosis 05/02/2020 02:40:00 PM [facility] E83.42 Hypomagnesemia HYPOMAGNESEMIA Diagnosis 05/02/2020 02:40: 00 PM [facility] B37.2 Candidiasis of skin and nail CANDIDIASIS OF SKIN AND N AIL Diagnosis 05/02/2020 02:40:00 PM [facility] E55.9 Vitamin D deficiency, unspecified VITAMIN D DEFI CIENCY, UNSPECIFIED Diagnosis 05/02/2020 02:40:00 PM [facility] F43.20 Adjustment disorder, unspecified ADJUSTMENT DISO RDER, UNSPECIFIED Diagnosis 05/02/2020 02:40:00 PM [facility] H40.9 Unspecified glaucoma UNSPECIFIED GLAUCOMA Diagnosis 05/02/2020 02:40:00 PM [facility] K21.9 Gastro-esophageal reflux disease without esophagitis GASTRO-ESOPHAGEAL REFLUX DISEASE WITHOUT ESOPHAGIT Diagnosis 05/02/2020 02:40:00 PM [facility] E78.5 Hyperlipidemia, unspecified HYPERLIPIDEMIA, UNSPECIFIE D Diagnosis 05/02/2020 02:40:00 PM [facility] I13.10 Hypertensive heart and chron ic kidney disease without heart failure, with stage 1 through stage 4 chronic kidney disease, or unspecified chronic kidney disease HYP HRT CHR KDNY DIS W/O HRT FAIL, W STG 1-4/UNS Diagnosis 05/02/2020 02:40:00 PM [facility] I73.9 Peripheral vascular disease, unspecified PERIPHERAL VASCULAR DISEASE, UNSPECIFIED Diagnosis 05/02/2020 02:40:00 PM [facility] E11.8 Type 2 diabetes mellitus with unspecifie d complications TYPE 2 DIABETES MELLITUS WITH UNSPECIFIED COMPLICA Diagnosis 05/02/2020 02:40:00 PM [facility] E87.8 Other disorders of electroly te and fluid balance, not elsewhere classified OTH DISORDERS OF ELECTROLYTE AND FLUID BALANCE, NE Diagnosis 05/02/2020 02:40:00 PM [facility] D64.9 Anemia, unspecified ANEMIA, UNSPECIFIED Diagnosis 0 05/02/2020 02:40:00 PM [facility] R79.82 Elevated C-reactive protein (CRP) ELEVATED C-YOLETTE CTIVE PROTEIN (CRP) Diagnosis 05/02/2020 02:40:00 PM [facility] N18.2 Chronic kidney disease, stage 2 (mild) C HRONIC KIDNEY DISEASE, STAGE 2 (MILD) Diagnosis 05/02/2020 02:40:00 PM [facility] A04.72 ENTEROCOLITIS D/T CLOSTRIDIUM DIFFICILE, NOT SPCF ENTEROCOLITIS D/T CLOSTRIDIUM DIFFICILE, NOT SPCF Diagnosis 05/02/2020 02:40:00 PM [facility] Z89.512 Acquired absence of left leg below knee ACQUIRED ABSENCE OF LEFT LEG BELOW KNEE Diagnosis 05/02/2020 02:40:00 PM [facility] E87.1 Hypo-osmolality and hyponatremia HYPO-OSMOLALITY AND HYPONATREMIA Diagnosis 05/02/2020 02:40:00 PM [facility] E43 Unspecified severe protein-calorie malnu trition UNSPECIFIED SEVERE PROTEIN- CALORIE MALNUTRITION Diagnosis 05/02/2020 02:40:00 PM [facility] R26.89 Other abnormalities of gait and mobility OTHER ABNORMALITIES OF GAIT AND MOBILITY Diagnosis 05/02/2020 02:40:00 PM [facility] R26.2 Difficulty in walking, not elsewhere cla ssified DIFFICULTY IN WALKING, NOT ELSEWHERE CLASSIFIED Diagnosis 04/29/2020 03:00:00 PM [facility] N18.9 Chronic kidney disease, unspecified CHRONIC KIDN EY DISEASE, UNSPECIFIED Diagnosis 04/29/2020 03:00:00 PM [facility] E86.0 Dehydration DEHYDRATION Diagnosis 04/29/2020 03:00:00 PM [facility] F32.9 Major depressive disorder, single episod e, unspecified MAJOR DEPRESSIVE DISORDER, SINGLE EPISODE, UNSPECI Diagnosis 04/29/2020 03:00:00 PM [facility] D50.9 Iron deficiency anemia, unspecified IRON DEFICIE NCY ANEMIA, UNSPECIFIED Diagnosis 04/29/2020 03:00:00 PM [facility] B37.9 Candidiasis, unspecified CANDIDIASIS, UNSPECIFIED Diag nosis 04/29/2020 03:00:00 PM [facility] I12.9 Hypertensive chronic kidney disease with stage 1 through stage 4 chronic kidney disease, or unspecified chronic kidney disease HYPERTENSIVE CHRONIC KIDNEY DISEASE W STG 1-4/UNSP Diagnosis 04/29/2020 03:00:00 PM [facility] E11.51 Type 2 diabetes mellitus wit h diabetic peripheral angiopathy without gangrene TYPE 2 DIABETES W DIABETIC PERIPHERAL ANGIOPATH W/ Diagnosis 04/29/2020 03:00:00 PM [facility] Z98.890 OTHER SPECIFIED POSTPROCEDURAL STATES OT HER SPECIFIED POSTPROCEDURAL STATES Diagnosis 04/29/2020 03:00:00 PM [facility] A41.9 Sepsis, unspecified organism SEPSIS, UNSPECIFIED ORGAN ISM Diagnosis 04/29/2020 03:00:00 PM [facility] N17.9 Acute kidney failure, unspecified ACUTE KIDNEY F AILURE, UNSPECIFIED Diagnosis 04/29/2020 03:00:00 PM [facility] M86.10 Other acute osteomyelitis, unspecified s ite OTHER ACUTE OSTEOMYELITIS, UNSPECIFIED SITE Diagnosis 04/29/2020 03:00:00 PM [facility] R50.9 Fever, unspecified FEVER, UNSPECIFIED Diagnosis 11:09:00 AM [facility] R19.7 Diarrhea, unspecified DIARRHEA, UNSPECIFIED Diagnosis 04/15/2020 11:09:00 AM [facility] Z86.39 Personal history of other endocrine, nut ritional and metabolic disease PERSONAL HISTORY OF ENDO, NUTRITIONAL AND METABOLI Diagnosis 11:09:00 [facility] K21.00 GASTRO-ESOPHAGEAL REFLUX DIS WITH ESOPHA GITIS, WIT GASTRO-ESOPHAGEAL REFLUX DIS WITH ESOPHAGITIS, WIT Diagnosis 04/15/2020 11:09:00 [facility] J42 Unspecified chronic bronchitis UNSPECIFIED CHRONIC BRO NCHITIS Diagnosis 04/15/2020 11:09:00 [facility] E78.2 Mixed hyperlipidemia MIXED HYPERLIPIDEMIA Diagnosis 04/15/2020 11:09:00 [facility] I11.9 Hypertensive heart disease without heart failure HYPERTENSIVE HEART DISEASE WITHOUT HEART FAILURE Diagnosis 04/15/2020 11:09:00 AM [facility] M86.9 Osteomyelitis, unspecified OSTEOMYELITIS, UNSPECIFIED Diagnosis 04/15/2020 11:09:00 AM [facility] R53.81 Other malaise OTHER MALAISE Diagnosis 04/15/2020 11:09:00 AM [facility] E78.1 Pure hyperglyceridemia E78.1 - Pure hyperglyceridemia Diagnosis 07/26/2019 10:14:00 AM [facility] Surgeries/Procedures Procedure Description Date Indications Data Source(s) Introduction of Insulin into Subcutaneous Tissue, Percutaneo us Approach 05/02/2020 12:00:00 AM [facility] Introduction of Other Therapeutic Substa nce into Peripheral Vein, Percutaneous Approach 05/02/2020 12:00:00 [facility] Introduction of Anti-inflammatory into R espiratory Tract, Via Natural or Artificial Opening 05/02/2020 12:00:00 AM [facility] Muscle Performance Treatment of Musculoskeletal System - Who le Body 05/02/2020 12:00:00 AM [facility] Introduction of Other Anti-infective int o Peripheral Vein, Percutaneous Approach 04/29/2020 12:00:00 AM [facility] CHRON CARE MGMT SRVC 20 MIN 08/14/2019 12:00:00 AM EDT eCW1 ([facility]) PHYSICIAN TELEPHONE EVALUATION 21-30 MIN 07/18/2019 12 :00:00 AM EDT eCW1 ([facility]) Office Visit, Est Pt., Level 3 PC 07/12/2019 12:00:00 AM EDT eCW1 ([facility]) HOME V, EP EXPANDED 05/02/2019 12:00:00 AM EST eCW1 ([facility]) TRANS CARE MGMT 7 DAY DISCH 03/28/2019 12:00:00 AM EST eCW1 ([facility]) Results ID Date Data Source [id number] 05/13/2020 09:59:00 AM [facility] In-Patient NoteNote:LABORATORY TEST RX: Dx Hyponatremia Hyperkalemia OBTAIN BEFORE 05/16/2020 PCP tel [phone] CBC with [id number] Iron Name Value Range Interpretation Code Description Data Marcela rce(s) Supporting Document(s) ID Date Data Source [id number] 05/11/2020 10:18:00 AM [facility] DATE OF EXAMINATION: 05/11/2020 9:33 EST [...] rce(s) Supporting Document(s) ID Date Data Source [id number] 05/12/2020 10:05:00 AM EST [facility] Name Value Range Interpretation Code Description Data Marcela rce(s) Supporting Document(s) Cortisol 17.8 ug/dL [facility] C ortisol AM 6.2 - 19.4 Cortisol PM 2.3 - 11.9 ID Date Data Source [id number] 05/11/2020 07:29:00 AM [facility] Name Value Range Interpretation Code Description Data Marcela rce(s) Supporting Document(s) GLUCOSE 155 mg/dL 74-106 H Black [facility] BLOOD UREA NITROGEN 35 mg/dL 7-18 [facility] ital CREATININE 1.44 mg/dL 0.7-1.3 H [facility] SODIUM 124 mmol/L 136-145 L [facility] POTASSIUM 5.0 mmol/L 3.5-5.1 [facility] CHLORIDE 92 mmol/L 98-107 L [facility] CO2 29 mmol/L 21-32 [facility] CALCIUM 8.4 mg/dL 8.5-10.1 L [facility] ANION GAP 3.0 mmol/L 5-12 L [facility] GLOMERULAR FILTRATION RATE 48 mL/min [facility] GFR IS CALCULATED IN mL/min/1.73m2 ROBERT L FUNCTION: >90MILDLY DECREASED: 60-89MILDY TO MODERATELY DECREASED: 45-59 MODERATELY TO SEVERELY DECREASED: 30-44SEVERELY DECREASED: 15-29RENAL FAILURE: <15 AST 13 U/L 15-37 L [facility] ALT 16 U/L 12-78 [facility] ALKALINE PHOSPHATASE 56 U/L 46-116 [facility] pital TOTAL BILIRUBIN 0.2 mg/dL 0.2-1.0 [facility] TOTAL PROTEIN 6.3 g/dl 6.4-8.2 L [facility] ALBUMIN 2.9 gm/dL 3.4-5.0 L [facility] ID Date Data Source [id number] 05/11/2020 07:29:00 AM [facility] l Name Value Range Interpretation Code Description Data Marcela rce(s) Supporting Document(s) MAGNESIUM 1.9 mg/dL 1.8-2.4 [facility] ID Date Data Source [id number] 05/11/2020 07:20:00 AM [facility] l Name Value Range Interpretation Code Description Data Marcela rce(s) Supporting Document(s) PROTHROMBIN TIME (PATIENT) 9.8 SECONDS 9.1-11.6 [facility] INR 0.94 0.87-1.06 [facility] ID Date Data Source [id number] 05/11/2020 07:08:00 AM [facility] Name Value Range Interpretation Code Description Data Marcela rce(s) Supporting Document(s) WHITE BLOOD COUNT 9.1 K/mm3 4.0-10.0 [facility] 3.82 M/mm3 4.50-6.00 L [facility] HEMOGLOBIN 11.1 gm/dL 14.0-18.0 [facility] HEMATOCRIT 32.6 % 42.0-54.0 [facility] MEAN CELL VOLUME 85.3 fl 80-96 [facility] MEAN CORPUSCULAR HEMOGLOBIN 29.1 pg 27.0-31.0 [facility] MEAN CORPUSCULAR HGB CONC 34.0 g/dl 32.0-36.0 [facility] RED CELL DISTRIBUTION WIDTH 14.2 % 10.0-14.5 [facility] PLATELET COUNT 409 K/mm3 172-450 [facility] MEAN PLATELET VOLUME 9.4 fl 9.0-13.0 [facility] pital GRAN % 46.5 % 50-80.0 L [facility] IG% 0.1 % 0.0-0.2 [facility] LYMPH % 20.3 % 25.0-50.0 L [facility] MONO % 4.7 % 2.0-10.0 [facility] EOS % 27.7 % 0-5.0 *H [facility] BASO % 0.7 % 0.0-2.0 [facility] GRAN # 4.3 K/mm3 2.0-8.00 [facility] IG# 0.0 K/mm3 0.0-0.2 [facility] LYMPH # 1.9 K/mm3 1.0-5.0 [facility] MONO # 0.4 K/mm3 0.10-1.20 [facility] EOS # 2.5 K/mm3 0.0-0.5 *H [facility] BASO # 0.1 K/mm3 0.0-0.2 [facility] ID Date Data Source [id number] 05/11/2020 07:07:00 AM [facility] l Name Value Range Interpretation Code Description Data Marcela rce(s) Supporting Document(s) PH 7.35 7.31-7.41 [facility] VENOUS PCO2 54.8 mmHg 41-51 [facility] VENOUS PO2 43 mmHg 35-42 [facility] VENOUS BLODD O2 SATURATION 55.2 % 68-77 L [facility] VENOUS BLOOD HCO3 29.2 meq/L 24.0-25.0 [facility] BASE EXCESS 3.0 -3.0-3.0 [facility] VENOUS BLOOD CO2 30.9 mmol/L 23.0-32.0 [facility] ID Date Data Source [id number] 05/10/2020 06:45:00 AM [facility] Name Value Range Interpretation Code Description Data Marcela rce(s) Supporting Document(s) GLUCOSE 165 mg/dL 74-106 H [facility] BLOOD UREA NITROGEN 26 mg/dL 7-18 [facility] ital CREATININE 1.46 mg/dL 0.7-1.3 H [facility] SODIUM 122 mmol/L 136-145 L [facility] POTASSIUM 5.2 mmol/L 3.5-5.1 H [facility] CHLORIDE 88 mmol/L 98-107 *L [facility] CO2 30 mmol/L 21-32 [facility] CALCIUM 8.8 mg/dL 8.5-10.1 [facility] ANION GAP 4.0 mmol/L 5-12 L [facility] GLOMERULAR FILTRATION RATE 47 mL/min [facility] GFR IS CALCULATED IN mL/min/1.73m2 ROBERT L FUNCTION: >90MILDLY DECREASED: 60-89MILDY TO MODERATELY DECREASED: 45-59 MODERATELY TO SEVERELY DECREASED: 30-44SEVERELY DECREASED: 15-29RENAL FAILURE: <15 ID Date Data Source [id number] 05/09/2020 06:32:00 AM [facility] l Name Value Range Interpretation Code Description Data Marcela rce(s) Supporting Document(s) GLUCOSE 214 mg/dL 74-106 H [facility] BLOOD UREA NITROGEN 19 mg/dL 7-18 [facility] ital CREATININE 1.40 mg/dL 0.7-1.3 [facility] SODIUM 126 mmol/L 136-145 L [facility] POTASSIUM 5.5 mmol/L 3.5-5.1 H [facility] CHLORIDE 92 mmol/L 98-107 L [facility] CO2 31 mmol/L 21-32 [facility] CALCIUM 8.8 mg/dL 8.5-10.1 [facility] ANION GAP 3.0 mmol/L 5-12 L [facility] GLOMERULAR FILTRATION RATE 50 mL/min [facility] GFR IS CALCULATED IN mL/min/1.73m2 ROBERT L FUNCTION: >90MILDLY DECREASED: 60-89MILDY TO MODERATELY DECREASED: 45-59 MODERATELY TO SEVERELY DECREASED: 30-44SEVERELY DECREASED: 15-29RENAL FAILURE: <15 ID Date Data Source [id number] 05/08/2020 11:39:00 PM [facility] In-Patient NoteNote:05/08/2020 22;40 I was notified [...] e(s) Supporting Document(s) ID Date Data Source [id number] 05/08/2020 10:34:00 PM [facility] Name Value Range Interpretation Code Description Data Marcela rce(s) Supporting Document(s) TSH 2.454 uIU/mL 0.360-3.740 [facility] ID Date Data Source [id number] 05/08/2020 10:21:00 PM [facility] Name Value Range Interpretation Code Description Data [facility](s) Supporting Document(s) GLUCOSE 186 mg/dL 74-106 H [facility] BLOOD UREA NITROGEN 16 mg/dL 7-18 [facility] ital CREATININE 1.35 mg/dL 0.7-1.3 H [facility] SODIUM 125 mmol/L 136-145 [facility] CALLED TO [facility] 05/08 2219 POTASSIUM 6.6 mmol/L 3.5-5.1 *H [facility] CALLED TO [facility] 05/08 2219 CHLORIDE 94 mmol/L 98-107 L [facility] CO2 29 mmol/L 21-32 [facility] CALCIUM 8.6 mg/dL 8.5-10.1 [facility] ANION GAP 2.0 mmol/L 5-12 L [facility] GLOMERULAR FILTRATION RATE 52 mL/min [facility] GFR IS CALCULATED IN mL/min/1.73m2 ROBERT L FUNCTION: >90MILDLY DECREASED: 60-89MILDY TO MODERATELY DECREASED: 45-59 MODERATELY TO SEVERELY DECREASED: 30-44SEVERELY DECREASED: 15-29RENAL FAILURE: <15 ID Date Data Source [id number] 05/09/2020 02:54:00 PM [facility] Name Value Range Interpretation Code Description Data Marcela rce(s) Supporting Document(s) OSMS 276 mOsm/KG 275-300 [facility] ID Date Data Source [id number] 05/09/2020 02:51:00 PM [facility] Name Value Range Interpretation Code Description Data Marcela rce(s) Supporting Document(s) OSMO URINE 208 MMOL/KG 400-850 L [facility] ID Date Data Source [id number] 05/08/2020 09:05:00 PM [facility] l Name Value Range Interpretation Code Description Data Marcela rce(s) Supporting Document(s) SODIUM,RANDOM URINE 59 mmol/L 5-300 [facility] ID Date Data Source [id number] 05/08/2020 06:10:00 PM [facility] l See AddendumProgress Note GeneralEn counter:Chart reviewed. 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, normal mood/affect, no [...] Name Value Range Interpretation Code Description [facility](s[facility] ID Date Data Source [id number] 05/08/2020 05:28:00 PM [facility] Name Value Range Interpretation Code Description Data [facility] Supporting Document(s) GLUCOSE 204 mg/dL 74-106 H [facility] BLOOD UREA NITROGEN 16 mg/dL 7-18 [facility] ital CREATININE 1.31 mg/dL 0.7-1.3 H [facility] SODIUM 124 mmol/L 136-145 L [facility] POTASSIUM 5.4 mmol/L 3.5-5.1 H [facility] CHLORIDE 91 mmol/L 98-107 L [facility] CO2 29 mmol/L 21-32 [facility] CALCIUM 8.7 mg/dL 8.5-10.1 [facility] ANION GAP 4.0 mmol/L 5-12 L [facility] GLOMERULAR FILTRATION RATE 53 mL/min [facility] GFR IS CALCULATED IN mL/min/1.73m2 ROBERT L FUNCTION: >90MILDLY DECREASED: 60-89MILDY TO MODERATELY DECREASED: 45-59 MODERATELY TO SEVERELY DECREASED: 30-44SEVERELY DECREASED: 15-29RENAL FAILURE: <15 ID Date Data Source [id number] 05/08/2020 02:43:00 PM EST [facility] Name Value Range Interpretation Code Description Data Marcela rce(s) Supporting Document(s) GLUCOSE 222 mg/dL 74-106 H [facility] BLOOD UREA NITROGEN 17 mg/dL 7-18 [facility] ital CREATININE 1.31 mg/dL 0.7-1.3 H [facility] SODIUM 124 mmol/L 136-145 L [facility] POTASSIUM 6.0 mmol/L 3.5-5.1 H [facility] CHLORIDE 91 mmol/L 98-107 L [facility] CO2 31 mmol/L 21-32 [facility] CALCIUM 8.4 mg/dL 8.5-10.1 L [facility] ANION GAP 2.0 mmol/L 5-12 L [facility] GLOMERULAR FILTRATION RATE 53 mL/min [facility] GFR IS CALCULATED IN mL/min/1.73m2 ROBERT L FUNCTION: >90MILDLY DECREASED: 60-89MILDY TO MODERATELY DECREASED: 45-59 MODERATELY TO SEVERELY DECREASED: 30-44SEVERELY DECREASED: 15-29RENAL FAILURE: <15 ID Date Data Source [id number] 05/08/2020 09:41:00 AM EST [facility] In-Patient NoteNote:The patient will re quire following equipment at home: 36 inch slide board18 inch wheelchair with removable arm rest, elevate leg rests and anti-tippersDrop arm commodeSome electric 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 He does require theabove equipment so that he may perform his ADLs as well as transfer and ambulate. Name Value Range Interpretation Code Description Data Marcela rce(s) Supporting Document(s) ID Date Data Source [id number] 05/08/2020 07:04:00 AM [facility] l Name Value Range Interpretation Code Description Data Marcela rce(s) Supporting Document(s) MAGNESIUM 1.5 mg/dL 1.8-2.4 L [facility] ID Date Data Source [id number] 05/08/2020 07:04:00 AM [facility] l Name Value Range Interpretation Code Description Data Marcela e(s) Supporting Document(s) GLUCOSE 197 mg/dL 74-106 H [facility] BLOOD UREA NITROGEN 18 mg/dL 7-18 [facility] ital CREATININE 1.28 mg/dL 0.7-1.3 [facility] SODIUM 130 mmol/L 136-145 L [facility] POTASSIUM 6.3 mmol/L 3.5-5.1 H [facility] CHLORIDE 96 mmol/L 98-107 L [facility] CO2 31 mmol/L 21-32 [facility] CALCIUM 8.7 mg/dL 8.5-10.1 [facility] ANION GAP 3.0 mmol/L 5-12 L [facility] GLOMERULAR FILTRATION RATE 55 mL/min [facility] GFR IS CALCULATED IN mL/min/1.73m2 ROBERT L FUNCTION: >90MILDLY DECREASED: 60-89MILDY TO MODERATELY DECREASED: 45-59 MODERATELY TO SEVERELY DECREASED: 30-44SEVERELY DECREASED: 15-29RENAL FAILURE: <15 ID Date Data Source [id number] 05/08/2020 06:55:00 AM [facility] l Name Value Range Interpretation Code Description Data [facility] rce(s) Supporting Document(s) WHITE BLOOD COUNT 10.3 K/mm3 4.0-10.0 H [facility] RED BLOOD COUNT 3.59 M/mm3 4.50-6.00 L [facility] l HEMOGLOBIN 10.4 gm/dL 14.0-18.0 L [facility] HEMATOCRIT 31.2 % 42.0-54.0 L [facility] MEAN CELL VOLUME 86.9 fl 80-96 [facility] l MEAN CORPUSCULAR HEMOGLOBIN 29.0 pg 27.0-31.0 [facility] MEAN CORPUSCULAR HGB CONC 33.3 g/dl 32.0-36.0 [facility] RED CELL DISTRIBUTION WIDTH 14.3 % 10.0-14.5 [facility] PLATELET COUNT 412 K/mm3 172-450 [facility] MEAN PLATELET VOLUME 9.6 fl 9.0-13.0 [facility] pital GRAN % 50.9 % 50-80.0 [facility] IG% 0.4 % 0.0-0.2 H [facility] LYMPH % 17.3 % 25.0-50.0 L [facility] MONO % 4.6 % 2.0-10.0 [facility] EOS % 26.0 % 0-5.0 *H [facility] BASO % 0.8 % 0.0-2.0 [facility] GRAN # 5.2 K/mm3 2.0-8.00 [facility] IG# 0.0 K/mm3 0.0-0.2 [facility] LYMPH # 1.8 K/mm3 1.0-5.0 [facility] MONO # 0.5 K/mm3 0.10-1.20 [facility] EOS # 2.7 K/mm3 0.0-0.5 *H [facility] BASO # 0.1 K/mm3 0.0-0.2 [facility] ID Date Data Source [id number] 05/04/2020 04:14:00 PM [facility] l In-Patient NoteNote:Laboratory Tests 05/04 05/04 0625 [...] rce(s) Supporting Document(s) ID Date Data Source [id number] 05/04/2020 07:37:00 AM [facility] Name Value Range Interpretation Code Description Data [facility] rce(s) Supporting Document(s) CHOLESTEROL 93 mg/dL 0-200 [facility] TRIGLYCERIDES 130 mg/dL 0-150 [facility] LDL CHOLESTEROL 43 mg/dL 0-100 [facility] HDL CHOLESTEROL 24 mg/dL 40-60 L [facility] CHOL/HDL RATIO 3.9 0.0-5.0 [facility] ID Date Data Source [id number] 05/04/2020 07:25:00 AM EST [facility] Name Value Range Interpretation Code Description Data [facility] rce(s) Supporting Document(s) MAGNESIUM 1.3 mg/dL 1.8-2.4 L [facility] ID Date Data Source [id number] 05/04/2020 07:25:00 AM EST [facility] Name Value Range Interpretation Code Description Data [facility] rce(s) Supporting Document(s) C REACTIVE PROTEIN 10.1 mg/L 0.0-3.0 H [facility] dawn ID Date Data Source [id number] 05/04/2020 07:25:00 AM EST [facility] Name Value Range Interpretation Code Description Data Marcela rce(s) Supporting Document(s) GLUCOSE 224 mg/dL 74-106 H [facility] BLOOD UREA NITROGEN 16 mg/dL 7-18 [facility] ital CREATININE 1.34 mg/dL 0.7-1.3 H [facility] SODIUM 140 mmol/L 136-145 [facility] POTASSIUM 4.3 mmol/L 3.5-5.1 [facility] CHLORIDE 108 mmol/L 98-107 H [facility] CO2 25 mmol/L 21-32 [facility] CALCIUM 8.4 mg/dL 8.5-10.1 L [facility] ANION GAP 7.0 mmol/L 5-12 [facility] GLOMERULAR FILTRATION RATE 52 mL/min [facility] GFR IS CALCULATED IN mL/min/1.73m2 ROBERT L FUNCTION: >90MILDLY DECREASED: 60-89MILDY TO MODERATELY DECREASED: 45-59 MODERATELY TO SEVERELY DECREASED: 30-44SEVERELY DECREASED: 15-29RENAL FAILURE: <15 AST 15 U/L 15-37 [facility] ALT 19 U/L 12-78 [facility] ALKALINE PHOSPHATASE 49 U/L 46-116 [facility] TOTAL BILIRUBIN 0.2 mg/dL 0.2-1.0 [facility] TOTAL PROTEIN 4.8 g/dl 6.4-8.2 L [facility] ALBUMIN 2.0 gm/dL 3.4-5.0 L [facility] ID Date Data Source [id number] 05/04/2020 07:01:00 AM EST [facility] Name Value Range Interpretation Code Description Data Marcela rce(s) Supporting Document(s) WHITE BLOOD COUNT 13.1 K/mm3 4.0-10.0 H [facility] RED BLOOD COUNT 3.09 M/mm3 4.50-6.00 L [facility] HEMOGLOBIN 9.0 gm/dL 14.0-18.0 L [facility] HEMATOCRIT 27.4 % 42.0-54.0 L [facility] MEAN CELL VOLUME 88.7 fl 80-96 [facility] l MEAN CORPUSCULAR HEMOGLOBIN 29.1 pg 27.0-31.0 [facility] MEAN CORPUSCULAR HGB CONC 32.8 g/dl 32.0-36.0 [facility] RED CELL DISTRIBUTION WIDTH 15.2 % 10.0-14.5 H [facility] PLATELET COUNT 331 K/mm3 172-450 [facility] MEAN PLATELET VOLUME 10.0 fl 9.0-13.0 [facility] pital GRAN % 48.5 % 50-80.0 L [facility] IG% 0.7 % 0.0-0.2 H [facility] LYMPH % 15.8 % 25.0-50.0 [facility] MONO % 6.1 % 2.0-10.0 [facility] EOS % 28.1 % 0-5.0 *H [facility] BASO % 0.8 % 0.0-2.0 [facility] GRAN # 6.4 K/mm3 2.0-8.00 [facility] IG# 0.1 K/mm3 0.0-0.2 [facility] LYMPH # 2.1 K/mm3 1.0-5.0 [facility] MONO # 0.8 K/mm3 0.10-1.20 [facility] EOS # 3.7 K/mm3 0.0-0.5 *H [facility] BASO # 0.1 K/mm3 0.0-0.2 [facility] ID Date Data Source [id number] 05/02/2020 04:16:00 PM [facility] HistoryChief Complaint/Admit ReasonAmbu latory dysfunction, status [...] alone.He has no children.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 He did drink [...] Provider: Advance Care Planning* 5 minutes of nkjg-ev-voug time spent for Advance Care Planning in [...] rce(s) Supporting Document(s) ID Date Data Source [id number] 05/02/2020 03:28:00 PM [facility] Summary of HospitalizationReason for Ad missionC. 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 He did drink [...] Provider: Advance Care Planning* 3 minutes of [id number]-jm-[id number] time spent for Advance Care Planning in explanation/discussion of Advance Directives.* Following people are present during the meeting: The patient and myself.* Decisions reached: He will remain a DNR/DNI. Name Value Range Interpretation Code Description Data Marcela rce(s) Supporting Document(s) ID Date Data Source [id number] 05/02/2020 06:17:00 AM EST [facility] Name Value Range Interpretation Code Description Data [facility] rce(s) Supporting Document(s) GLUCOSE 177 mg/dL 74-106 H [facility] BLOOD UREA NITROGEN 16 mg/dL 7-18 [facility] ital CREATININE 1.14 mg/dL 0.7-1.3 [facility] SODIUM 142 mmol/L 136-145 [facility] POTASSIUM 4.0 mmol/L 3.5-5.1 [facility] CHLORIDE 110 mmol/L 98-107 H [facility] CO2 23 mmol/L 21-32 [facility] CALCIUM 8.3 mg/dL 8.5-10.1 [facility] ANION GAP 9.0 mmol/L 5-12 [facility] GLOMERULAR FILTRATION RATE 63 mL/min [facility] GFR IS CALCULATED IN mL/min/1.73m2 ROBERT L FUNCTION: >90MILDLY DECREASED: 60-89MILDY TO MODERATELY DECREASED: 45-59 MODERATELY TO SEVERELY DECREASED: 30-44SEVERELY DECREASED: 15-29RENAL FAILURE: <15 ID Date Data Source [id number] 05/02/2020 06:03:00 AM EST [facility] Name Value Range Interpretation Code Description Data Marcela rce(s) Supporting Document(s) WHITE BLOOD COUNT 11.8 K/mm3 4.0-10.0 H [facility] dawn RED BLOOD COUNT 3.02 M/mm3 4.50-6.00 L [facility] l HEMOGLOBIN 8.8 gm/dL 14.0-18.0 [facility] HEMATOCRIT 26.1 % 42.0-54.0 L [facility] MEAN CELL VOLUME 86.4 fl 80-96 [facility] MEAN CORPUSCULAR HEMOGLOBIN 29.1 pg 27.0-31.0 [facility] MEAN CORPUSCULAR HGB CONC 33.7 g/dl 32.0-36.0 [facility] RED CELL DISTRIBUTION WIDTH 15.0 % 10.0-14.5 H [facility] PLATELET COUNT 308 K/mm3 172-450 [facility] ID Date Data Source [id number] 05/01/2020 09:39:00 AM [facility] Progress Note GeneralEncounter:Chart re viewed. 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, normal mood/affect, oriented [...] rce(s) Supporting Document(s) ID Date Data Source [id number] 05/01/2020 09:20:00 AM [facility] Name Value Range Interpretation Code Description Data Marcela rce(s) Supporting Document(s) GLUCOSE 372 mg/dL 74-106 H [facility] BLOOD UREA NITROGEN 22 mg/dL 7-18 H [facility] ital CREATININE 1.26 mg/dL 0.7-1.3 [facility] SODIUM 139 mmol/L 136-145 [facility] POTASSIUM 4.3 mmol/L 3.5-5.1 [facility] CHLORIDE 109 mmol/L 98-107 H [facility] CO2 20 mmol/L 21-32 L [facility] CALCIUM 8.1 mg/dL 8.5-10.1 L [facility] ANION GAP 10.0 mmol/L 5-12 [facility] GLOMERULAR FILTRATION RATE 56 mL/min [facility] GFR IS CALCULATED IN mL/min/1.73m2 ROBERT L FUNCTION: >90MILDLY DECREASED: 60-89MILDY TO MODERATELY DECREASED: 45-59 MODERATELY TO SEVERELY DECREASED: 30-44SEVERELY DECREASED: 15-29RENAL FAILURE: <15 ID Date Data Source [id number] 05/01/2020 09:13:00 AM [facility] Name Value Range Interpretation Code Description Data [facility](s) Supporting Document(s) WHITE BLOOD COUNT 9.6 K/mm3 4.0-10.0 [facility] al RED BLOOD COUNT 3.13 M/mm3 4.50-6.00 L [facility] HEMOGLOBIN 9.2 gm/dL 14.0-18.0 [facility] HEMATOCRIT 27.7 % 42.0-54.0 [facility] MEAN CELL VOLUME 88.5 fl 80-96 [facility] MEAN CORPUSCULAR HEMOGLOBIN 29.4 pg 27.0-31.0 [facility] MEAN CORPUSCULAR HGB CONC 33.2 g/dl 32.0-36.0 [facility] RED CELL DISTRIBUTION WIDTH 15.0 % 10.0-14.5 H [facility] PLATELET COUNT 267 K/mm3 172-450 [facility] ID Date Data Source [id number] 04/30/2020 12:37:00 PM [facility] [...] no calf tenderness, no pedal edemaNeurologic/Psychiatric alert, 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 installer 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, normal mood/affect, oriented [...] Name Value Range Interpretation Code Description Data [facility](s) Supporting Document(s) ID Date Data Source [id number] 04/30/2020 07:27:00 AM EST [facility] Name Value Range Interpretation Code Description Data Marcela [facility](s) Supporting Document(s) GLUCOSE 161 mg/dL 74-106 H [facility] BLOOD UREA NITROGEN 34 mg/dL 7-18 H [facility] ital CREATININE 1.48 mg/dL 0.7-1.3 H [facility] SODIUM 138 mmol/L 136-145 [facility] POTASSIUM 3.8 mmol/L 3.5-5.1 [facility] CHLORIDE 107 mmol/L 98-107 [facility] CO2 18 mmol/L 21-32 L [facility] CALCIUM 7.7 mg/dL 8.5-10.1 [facility] ANION GAP 13.0 mmol/L 5-12 H [facility] GLOMERULAR FILTRATION RATE 46 mL/min [facility] GFR IS CALCULATED IN mL/min/1.73m2 ROBERT L FUNCTION: >90MILDLY DECREASED: 60-89MILDY TO MODERATELY DECREASED: 45-59 MODERATELY TO SEVERELY DECREASED: 30-44SEVERELY DECREASED: 15-29RENAL FAILURE: <15 AST 18 U/L 15-37 [facility] ALT 19 U/L 12-78 [facility] ALKALINE PHOSPHATASE 69 U/L 46-116 [facility] [facility] TOTAL BILIRUBIN 0.3 mg/dL 0.2-1.0 [facility] TOTAL PROTEIN 5.7 g/dl 6.4-8.2 [facility] ALBUMIN 2.5 gm/dL 3.4-5.0 [facility] ID Date Data Source [id number] 04/30/2020 07:27:00 AM [facility] Name Value Range Interpretation Code Description Data [facility](s) Supporting Document(s) C REACTIVE PROTEIN 125.8 mg/L 0.0-3.0 H [facility] ital ID Date Data Source [id number] 04/30/2020 07:03:00 AM [facility] Name Value Range Interpretation Code Description Data [facility](s) Supporting Document(s) WHITE BLOOD COUNT 19.1 K/mm3 4.0-10.0 H [facility] dawn RED BLOOD COUNT 3.34 M/mm3 4.50-6.00 L [facility] HEMOGLOBIN 9.8 gm/dL 14.0-18.0 [facility] HEMATOCRIT 29.6 % 42.0-54.0 [facility] MEAN CELL VOLUME 88.6 fl 80-96 [facility] MEAN CORPUSCULAR HEMOGLOBIN 29.3 pg 27.0-31.0 [facility] MEAN CORPUSCULAR HGB CONC 33.1 g/dl 32.0-36.0 [facility] RED CELL DISTRIBUTION WIDTH 14.8 % 10.0-14.5 H [facility] PLATELET COUNT 279 K/mm3 172-450 [facility] MEAN PLATELET VOLUME 10.4 fl 9.0-13.0 [facility] pital GRAN % 70.0 % 50-80.0 [facility] IG% 0.2 % 0.0-0.2 [facility] LYMPH % 9.7 % 25.0-50.0 L [facility] MONO % 3.4 % 2.0-10.0 [facility] EOS % 16.4 % 0-5.0 *H [facility] BASO % 0.3 % 0.0-2.0 [facility] GRAN # 13.4 K/mm3 2.0-8.00 H [facility] IG# 0.0 K/mm3 0.0-0.2 [facility] LYMPH # 1.9 K/mm3 1.0-5.0 [facility] MONO # 0.7 K/mm3 0.10-1.20 [facility] EOS # 3.1 K/mm3 0.0-0.5 *H [facility] BASO # 0.1 K/mm3 0.0-0.2 [facility] ID Date Data Source [id number] 04/29/2020 07:35:00 AM [facility] Name Value Range Interpretation Code Description Data Marcela rce(s) Supporting Document(s) C REACTIVE PROTEIN 121.8 mg/L 0.0-3.0 [facility] ital ID Date Data Source [id number] 04/29/2020 07:23:00 AM [facility] Name Value Range Interpretation Code Description Data Marcela rce(s) Supporting Document(s) GLUCOSE 292 mg/dL 74-106 H [facility] BLOOD UREA NITROGEN 48 mg/dL 7-18 H [facility] ital CREATININE 1.78 mg/dL 0.7-1.3 H [facility] SODIUM 131 mmol/L 136-145 L [facility] POTASSIUM 3.6 mmol/L 3.5-5.1 [facility] CHLORIDE 101 mmol/L 98-107 [facility] CO2 21 mmol/L 21-32 [facility] CALCIUM 7.3 mg/dL 8.5-10.1 L [facility] ANION GAP 9.0 mmol/L 5-12 [facility] GLOMERULAR FILTRATION RATE 38 mL/min [facility] GFR IS CALCULATED IN mL/min/1.73m2 ROBERT L FUNCTION: >90MILDLY DECREASED: 60-89MILDY TO MODERATELY DECREASED: 45-59 MODERATELY TO SEVERELY DECREASED: 30-44SEVERELY DECREASED: 15-29RENAL FAILURE: <15 AST 22 U/L 15-37 [facility] ALT 19 U/L 12-78 [facility] ALKALINE PHOSPHATASE 63 U/L 46-116 [facility] TOTAL BILIRUBIN 0.2 mg/dL 0.2-1.0 [facility] TOTAL PROTEIN 5.1 g/dl 6.4-8.2 L [facility] ALBUMIN 2.2 gm/dL 3.4-5.0 L [facility] ID Date Data Source [id number] 04/29/2020 06:55:00 AM EST [facility] l Name Value Range Interpretation Code Description Data Marcela rce(s) Supporting Document(s) WHITE BLOOD COUNT 25.9 K/mm3 4.0-10.0 *[facility] dawn RED BLOOD COUNT 3.05 M/mm3 4.50-6.00 L [facility] l HEMOGLOBIN 8.9 gm/dL 14.0-18.0 L [facility] HEMATOCRIT 26.9 % 42.0-54.0 [facility] MEAN CELL VOLUME 88.2 fl 80-96 [facility] MEAN CORPUSCULAR HEMOGLOBIN 29.2 pg 27.0-31.0 [facility] MEAN CORPUSCULAR HGB CONC 33.1 g/dl 32.0-36.0 [facility] RED CELL DISTRIBUTION WIDTH 14.6 % 10.0-14.5 H [facility] PLATELET COUNT 262 K/mm3 172-450 [facility] MEAN PLATELET VOLUME 10.2 fl 9.0-13.0 [facility] GRAN % 80.3 % 50-80.0 H [facility] IG% 0.5 % 0.0-0.2 H [facility] LYMPH % 8.7 % 25.0-50.0 L [facility] MONO % 5.4 % 2.0-10.0 [facility] EOS % 4.9 % 0-5.0 [facility] BASO % 0.2 % 0.0-2.0 [facility] GRAN # 20.8 K/mm3 2.0-8.00 *H [facility] IG# 0.1 K/mm3 0.0-0.2 [facility] LYMPH # 2.3 K/mm3 1.0-5.0 [facility] MONO # 1.4 K/mm3 0.10-1.20 H [facility] EOS # 1.3 K/mm3 0.0-0.5 H [facility] BASO # 0.0 K/mm3 0.0-0.2 [facility] ID Date Data Source [id number] 05/05/2020 10:20:00 AM EST [facility] Name Value Range Interpretation Code Description Data Marcela rce(s) Supporting Document(s) [facility] ID Date Data Source [id number] 05/05/2020 10:20:00 AM EST [facility] Name Value Range Interpretation Code Description Data Marcela rce(s) Supporting Document(s) [facility] ID Date Data Source [id number] 04/28/2020 08:02:00 PM EST [facility] Name Value Range Interpretation Code Description Data Marcela rce(s) Supporting Document(s) NEUTROPHILS 81 % 50-80 H [facility] LYMPHOCYTE 8 % 25-50 L [facility] MONOCYTE 6 % 2.0-10.0 [facility] Eosinophils [#/volume] in Blood by Automated count 5 % 0-5 [facility] PLATELET ESTIMATE NORMAL NORMAL [facility] RBC MORPHOLOGY EXPECTED RESULTS:NORMAL= NORMOCHROMIC, NORMOCYTIC CELLSAbnormal Morphologic Findings > or = to 1+ are reported.Clinicopathologic correlation by the provider is required todetermine significance of finding. ID Date Data Source [id number] 04/28/2020 08:49:00 PM [facility] l Name Value Range Interpretation Code Description Data Marcela rce(s) Supporting Document(s) WHITE BLOOD COUNT 28.8 K/mm3 4.0-10.0 *[facility] RED BLOOD COUNT 3.23 M/mm3 4.50-6.00 L [facility] l HEMOGLOBIN 9.5 gm/dL 14.0-18.0 L [facility] HEMATOCRIT 28.5 % 42.0-54.0 L [facility] MEAN CELL VOLUME 88.2 fl 80-96 [facility] MEAN CORPUSCULAR HEMOGLOBIN 29.4 pg 27.0-31.0 [facility] MEAN CORPUSCULAR HGB CONC 33.3 g/dl 32.0-36.0 [facility] RED CELL DISTRIBUTION WIDTH 14.7 % 10.0-14.5 H [facility] PLATELET COUNT 282 K/mm3 172-450 [facility] MEAN PLATELET VOLUME 9.5 fl 9.0-13.0 [facility] pital GRAN % 81.0 % 50-80.0 H [facility] IG% 0.2 % 0.0-0.2 [facility] LYMPH % 6.1 % 25.0-50.0 L [facility] MONO % 6.6 % 2.0-10.0 [facility] EOS % 5.9 % 0-5.0 H [facility] BASO % 0.2 % 0.0-2.0 [facility] GRAN # 23.3 K/mm3 2.0-8.00 *H [facility] IG# 0.1 K/mm3 0.0-0.2 [facility] LYMPH # 1.8 K/mm3 1.0-5.0 [facility] MONO # 1.9 K/mm3 0.10-1.20 H [facility] EOS # 1.7 K/mm3 0.0-0.5 *H [facility] BASO # 0.1 K/mm3 0.0-0.2 [facility] ID Date Data Source [id number] 04/28/2020 09:16:00 PM EST [facility] Name Value Range Interpretation Code Description Data Marcela rce(s) Supporting Document(s) GLUCOSE 146 mg/dL 74-106 H [facility] BLOOD UREA NITROGEN 47 mg/dL 7-18 H [facility] ital CREATININE 1.85 mg/dL 0.7-1.3 H [facility] SODIUM 131 mmol/L 136-145 L [facility] POTASSIUM 4.7 mmol/L 3.5-5.1 [facility] CHLORIDE 99 mmol/L 98-107 [facility] CO2 22 mmol/L 21-32 [facility] CALCIUM 7.8 mg/dL 8.5-10.1 L [facility] ANION GAP 10.0 mmol/L 5-12 [facility] GLOMERULAR FILTRATION RATE 36 mL/min [facility] GFR IS CALCULATED IN mL/min/1.73m2 ROBERT L FUNCTION: >90MILDLY DECREASED: 60-89MILDY TO MODERATELY DECREASED: 45-59 MODERATELY TO SEVERELY DECREASED: 30-44SEVERELY DECREASED: 15-29RENAL FAILURE: <15 AST 24 U/L 15-37 [facility] ALT 18 U/L 12-78 [facility] ALKALINE PHOSPHATASE 69 U/L 46-116 [facility] pital TOTAL BILIRUBIN 0.3 mg/dL 0.2-1.0 [facility] TOTAL PROTEIN 5.8 g/dl 6.4-8.2 L [facility] ALBUMIN 2.5 gm/dL 3.4-5.0 L [facility] ID Date Data Source [id number] 05/04/2020 12:05:00 PM EST [facility] Name Value [...] Note 01 Not Detected Reference Range: Not [id number]... Note 01 Not Detected Reference Range: Not [...] <- Panic Low,>-Panic High,A-Abnormal,AA-Critical Abnormal Performed at:[address] [id number] Shanda Ryan MD, ID Date Data Source [id number] 04/28/2020 02:20:00 PM [facility] l Name Value Range Interpretation Code Description Data Marcela rce(s) Supporting Document(s) STOOL FOR OCCULT BLOOD NEGATIVE NEGATIVE [facility] ospital ID Date Data Source [id number] 04/28/2020 02:20:00 PM [facility] l Name Value Range Interpretation Code Description Data Marcela rce(s) Supporting Document(s) CDIFF A/B POSITIVE NEGATIVE [facility] THIS TEST IS PERFORMED USING A RAPIDIMMU NONASSAY FOR DETECTING CLOSTRIDIUM DIFFICILE TOXINS AAND B. ID Date Data Source [id number] 04/26/2020 10:20:00 AM [facility] l Name Value Range Interpretation Code Description Data Marcela rce(s) Supporting Document(s) GLUCOSE 260 mg/dL 74-106 H [facility] BLOOD UREA NITROGEN 33 mg/dL 7-18 H [facility] ital CREATININE 1.49 mg/dL 0.7-1.3 H [facility] SODIUM 133 mmol/L 136-145 [facility] POTASSIUM 4.8 mmol/L 3.5-5.1 [facility] CHLORIDE 99 mmol/L 98-107 [facility] CO2 28 mmol/L 21-32 [facility] CALCIUM 9.3 mg/dL 8.5-10.1 [facility] ANION GAP 6.0 mmol/L 5-12 [facility] GLOMERULAR FILTRATION RATE 46 mL/min [facility] GFR IS CALCULATED IN mL/min/1.73m2 ROBERT L FUNCTION: >90MILDLY DECREASED: 60-89MILDY TO MODERATELY DECREASED: 45-59 MODERATELY TO SEVERELY DECREASED: 30-44SEVERELY DECREASED: 15-29RENAL FAILURE: <15 AST 16 U/L 15-37 [facility] ALT 22 U/L 12-78 [facility] ALKALINE PHOSPHATASE 77 U/L 46-116 [facility] pital TOTAL BILIRUBIN 0.4 mg/dL 0.2-1.0 [facility] TOTAL PROTEIN 7.2 g/dl 6.4-8.2 [facility] ALBUMIN 3.4 gm/dL 3.4-5.0 [facility] ID Date Data Source [id number] 04/26/2020 10:14:00 AM [facility] Name Value Range Interpretation Code Description Data Marcela rce(s) Supporting Document(s) WHITE BLOOD COUNT 8.7 K/mm3 4.0-10.0 [facility] RED BLOOD COUNT 3.79 M/mm3 4.50-6.00 L [facility] HEMOGLOBIN 11.1 gm/dL 14.0-18.0 [facility] HEMATOCRIT 33.8 % 42.0-54.0 [facility] MEAN CELL VOLUME 89.2 fl 80-96 [facility] MEAN CORPUSCULAR HEMOGLOBIN 29.3 pg 27.0-31.0 [facility] MEAN CORPUSCULAR HGB CONC 32.8 g/dl 32.0-36.0 [facility] RED CELL DISTRIBUTION WIDTH 14.9 % 10.0-14.5 H [facility] PLATELET COUNT 344 K/mm3 172-450 [facility] ID Date Data Source [id number] 04/24/2020 12:46:00 PM [facility] Progress Note GeneralEncounter:Chart re viewed. 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 The recommendation was to start therapy is possible but no medications at this point. Name Value Range Interpretation Code Description Data Marcela rce(s) Supporting Document(s) ID Date Data Source [id number] 04/19/2020 08:46:00 PM EST [facility] Progress Note GeneralEncounter:Chart re viewed. Patient interviewed and examined. Labs, medications and orders viewed by me. SubjectiveGeneral Condition:Mr Fleming is a 74 year old male who was transferred here from [facility] where he underwent BKA of his [...] had 2 units of PRBCs transfusion at [facility]. His Hb is 9.3. 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, normal mood/affect, no [...] PPIs Advance Care Planning* 5 minutes of [id number] time spent for Advance Care Planning in explanation/discussion of Advance Directives.* Following people are present during the meeting: Mr Alberto and myself* Decisions reached: Maintain full code VTE ProphylaxisVTE Prophylaxis: Continue heparin sc Name Value Range Interpretation Code Description Data Marcela rce(s) Supporting Document(s) ID Date Data Source [id number] 04/19/2020 06:32:00 AM [facility] l Name Value Range Interpretation Code Description Data [facility] rce(s) Supporting Document(s) GLUCOSE 250 mg/dL 74-106 H [facility] BLOOD UREA NITROGEN 24 mg/dL 7-18 H [facility] ital CREATININE 1.40 mg/dL 0.7-1.3 H [facility] SODIUM 133 mmol/L 136-145 L [facility] POTASSIUM 4.9 mmol/L 3.5-5.1 [facility] CHLORIDE 98 mmol/L 98-107 [facility] CO2 29 mmol/L 21-32 [facility] CALCIUM 8.7 mg/dL 8.5-10.1 [facility] ANION GAP 6.0 mmol/L 5-12 [facility] GLOMERULAR FILTRATION RATE 50 mL/min [facility] GFR IS CALCULATED IN mL/min/1.73m2 ROBERT L FUNCTION: >90MILDLY DECREASED: 60-89MILDY TO MODERATELY DECREASED: 45-59 MODERATELY TO SEVERELY DECREASED: 30-44SEVERELY DECREASED: 15-29RENAL FAILURE: <15 AST 17 U/L 15-37 [facility] ALT 23 U/L 12-78 [facility] ALKALINE PHOSPHATASE 59 U/L 46-116 [facility] pital TOTAL BILIRUBIN 0.3 mg/dL 0.2-1.0 [facility] TOTAL PROTEIN 6.7 g/dl 6.4-8.2 [facility] ALBUMIN 2.7 gm/dL 3.4-5.0 L [facility] ID Date Data Source [id number] 04/19/2020 06:03:00 AM [facility] Name Value Range Interpretation Code Description Data [facility] Document(s) WHITE BLOOD COUNT 8.0 K/mm3 4.0-10.0 [facility] al RED BLOOD COUNT 3.18 M/mm3 4.50-6.00 L [facility] HEMOGLOBIN 9.3 gm/dL 14.0-18.0 L [facility] HEMATOCRIT 28.1 % 42.0-54.0 L [facility] MEAN CELL VOLUME 88.4 fl 80-96 [facility] MEAN CORPUSCULAR HEMOGLOBIN 29.2 pg 27.0-31.0 [facility] MEAN CORPUSCULAR HGB CONC 33.1 g/dl 32.0-36.0 [facility] RED CELL DISTRIBUTION WIDTH 14.6 % 10.0-14.5 H [facility] PLATELET COUNT 273 K/mm3 172-450 [facility] MEAN PLATELET VOLUME 9.5 fl 9.0-13.0 [facility] pital GRAN % 69.2 % 50-80.0 [facility] IG% 0.1 % 0.0-0.2 [facility] LYMPH % 18.2 % 25.0-50.0 L [facility] MONO % 7.2 % 2.0-10.0 [facility] EOS % 4.6 % 0-5.0 [facility] BASO % 0.7 % 0.0-2.0 [facility] GRAN # 5.6 K/mm3 2.0-8.00 [facility] IG# 0.0 K/mm3 0.0-0.2 [facility] LYMPH # 1.5 K/mm3 1.0-5.0 [facility] MONO # 0.6 K/mm3 0.10-1.20 [facility] EOS # 0.4 K/mm3 0.0-0.5 [facility] BASO # 0.1 K/mm3 0.0-0.2 [facility] ID Date Data Source [id number] 04/16/2020 09:38:00 AM [facility] HistoryChief Complaint/Admit ReasonDebi llity and deconditioningSt post left below the knee amputationHistory of Presenting IllnessThis is a 74 year old male with past medical history of diabetes mellitus, PAD, st post right BKA, hyperlipidemia, hypertension, iron deficiency anemia, peripheral neuropathy,iron deficiency anemia who was treated at [facility] in February 2020 for DKA and [...] referred for acute PT/OT rehab program at [facility]. He was maintained on IV antibiotics, his insulin was adjusted and he was started on Iron supplementation. The demand of an acute rehab program were to exhausting for Mr Fleming. He was referred to [facility] for a subacute rehab. Prior to discharge his jose luis and sutures were removed. Mr Fleming has been using right leg prosthesis prior to his February leftfoot infection. He is coming to [facility] for a Subacute rehab and recoveryfrom [...] Upper extremities, St post Bilat. 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, normal mood/affect, no [...] FULL CODEPlan discussed with patientCase discussed with employment evaluator/case manager, nursing staffCopies toFamily Provider: VTE ProphylaxisVTE Prophylaxis: SQ Heparin Name Value Range Interpretation Code Description Data [facility] rce(s) Supporting Document(s) ID Date Data Source [id number] 04/16/2020 06:50:00 AM [facility] Name Value Range Interpretation Code Description Data [facility] Supporting Document(s) HGBA1C 9.6 % 3.8-5.6 H [facility] Diabetic > or = to 6.5%Prediabetes 5.7-6 .4%Normal <5.7 ESTIMATED AVERAGE GLUCOSE 228.8 mg/dL [facility] ID Date Data Source [id number] 04/16/2020 06:34:00 AM [facility] l Name Value Range Interpretation Code Description Data [facility](s) Supporting Document(s) WHITE BLOOD COUNT 7.3 K/mm3 4.0-10.0 [facility] al RED BLOOD COUNT 3.34 M/mm3 4.50-6.00 L [facility] HEMOGLOBIN 9.8 gm/dL 14.0-18.0 [facility] HEMATOCRIT 30.1 % 42.0-54.0 [facility] MEAN CELL VOLUME 90.1 fl 80-96 [facility] MEAN CORPUSCULAR HEMOGLOBIN 29.3 pg 27.0-31.0 [facility] MEAN CORPUSCULAR HGB CONC 32.6 g/dl 32.0-36.0 [facility] RED CELL DISTRIBUTION WIDTH 14.7 % 10.0-14.5 H [facility] PLATELET COUNT 301 K/mm3 172-450 [facility] MEAN PLATELET VOLUME 9.3 fl 9.0-13.0 [facility] pital GRAN % 60.9 % 50-80.0 [facility] IG% 0.1 % 0.0-0.2 [facility] LYMPH % 23.5 % 25.0-50.0 L [facility] MONO % 6.8 % 2.0-10.0 [facility] EOS % 7.7 % 0-5.0 H [facility] BASO % 1.0 % 0.0-2.0 [facility] GRAN # 4.5 K/mm3 2.0-8.00 [facility] IG# 0.0 K/mm3 0.0-0.2 [facility] LYMPH # 1.7 K/mm3 1.0-5.0 [facility] MONO # 0.5 K/mm3 0.10-1.20 [facility] EOS # 0.6 K/mm3 0.0-0.5 H [facility] BASO # 0.1 K/mm3 0.0-0.2 [facility] ID Date Data Source [id number] 04/16/2020 07:05:00 AM [facility] Name Value Range Interpretation Code Description Data Marcela rce(s) Supporting Document(s) C REACTIVE PROTEIN 12.4 mg/L 0.0-3.0 [facility] ID Date Data Source [id number] 04/16/2020 07:05:00 AM [facility] l Name Value Range Interpretation Code Description Data Marcela rce(s) Supporting Document(s) GLUCOSE 274 mg/dL 74-106 H [facility] BLOOD UREA NITROGEN 21 mg/dL 7-18 H [facility] ital CREATININE 1.29 mg/dL 0.7-1.3 [facility] SODIUM 137 mmol/L 136-145 [facility] POTASSIUM 5.2 mmol/L 3.5-5.1 H [facility] CHLORIDE 102 mmol/L 98-107 [facility] CO2 29 mmol/L 21-32 [facility] CALCIUM 9.4 mg/dL 8.5-10.1 [facility] ANION GAP 6.0 mmol/L 5-12 [facility] GLOMERULAR FILTRATION RATE 54 mL/min [facility] GFR IS CALCULATED IN mL/min/1.73m2 ROBERT L FUNCTION: >90MILDLY DECREASED: 60-89MILDY TO MODERATELY DECREASED: 45-59 MODERATELY TO SEVERELY DECREASED: 30-44SEVERELY DECREASED: 15-29RENAL FAILURE: <15 AST 21 U/L 15-37 [facility] ALT 27 U/L 12-78 [facility] ALKALINE PHOSPHATASE 63 U/L 46-116 [facility] pital TOTAL BILIRUBIN 0.4 mg/dL 0.2-1.0 [facility] TOTAL PROTEIN 7.1 g/dl 6.4-8.2 [facility] ALBUMIN 2.8 gm/dL 3.4-5.0 L [facility] ID Date Data Source [id number] 04/15/2020 01:52:00 PM EST [facility] Name Value Range Interpretation Code Description Data Marcela rce(s) Supporting Document(s) URINE RBC NONE SEEN /hpf 0-3 [facility] URINE WBC NONE SEEN /hpf 0-5 [facility] URINE EPITHELIAL CELLS 1+ /hpf 0 [facility] ospital ID Date Data Source [id number] 04/15/2020 01:44:00 PM EST [facility] Name Value Range Interpretation Code Description Data Marcela rce(s) Supporting Document(s) URINE COLOR. [facility] URINE APPEARANCE CLEAR [facility] GLU[facility]SE (UA) 500 mg[facility]IVE [facility] URINE BILIRUBIN NEGATIVE NEGATIVE [facility] URINE KETONE NEGATIVE mg/dL NEGATIVE [facility] SPECIFIC GRAVITY,URINE 1.020 1.001-1.035 [facility] URINE BLOOD TRACE NEGATIVE [facility] PH,URINE 7.0 5.0-9.0 [facility] URINE PROTEIN NEGATIVE mg/dL NEGATIVE [facility] URINE UROBILINOGEN NORMAL(0.2-1) mg/dL 0-1 [facility] URINE NITRATE NEGATIVE NEGATIVE [facility] URINE LEUKOCYTE ESTERASE NEGATIVE NEGATIVE [facility] ID Date Data Source [id number] 04/15/2020 09:23:00 AM EST [facility] Name Value Range Interpretation Code Description Data Marcela rce(s) Supporting Document(s) SARS coronavirus 2 RNA [Presence] in Res piratory specimen by ZEYAD with probe detection NEGATIVE [facility] This lab was ordered by [facility] a nd reported by [facility]. ID Date Data Source [id number] 03/25/2020 06:08:00 PM EST [facility] Name Value Range Interpretation Code Description Data Marcela rce(s) Supporting Document(s) SARS coronavirus 2 RNA [Presence] in Res piratory specimen by ZEYAD with probe detection [facility] This lab was ordered by [facility] a nd reported by [facility]. ID Date Data Source [id number] 03/18/2020 07:56:00 PM EST [facility] Name Value Range Interpretation Code Description Data Marcela rce(s) Supporting Document(s) SARS coronavirus 2 RNA [Presence] in Res piratory specimen by ZEYAD with probe detection [facility] This lab was ordered by [facility] a nd reported by [facility]. ID Date Data Source [id number] 07/26/2019 01:58:00 PM EDT [facility] Name Value Range Interpretation Code Description Data Marcela rce(s) Supporting Document(s) SODIUM 141 [facility]Q/L 135-[facility] POTASSIUM 4.8 MEQ/L 3.5-5.3 [facility] CHLORIDE 107 MEQ/L 94-110 [facility] CARBON DIOXIDE 23 MEQ/L 22-33 [facility] ANION GAP 16 5-16 N [facility] BLOOD UREA NITRO 24 MG/DL 7-25 [facility] CREATININE 1.3 MG/DL 0.6-1.4 [facility] GFR 54.1 ML/MIN [facility] Stage G3a - Mildly to moderately decrea [...] years only. BUN/CREAT RATIO 18 8-36 N [facility] GLUCOSE 261 MG/DL 70-100 H [facility] CA 9.3 MG/DL 8.7-10.5 N [facility] BILIRUBIN,TOTAL 0.3 MG/DL 0.1-1.3 N [facility] AST 12 U/L 5-40 N [facility] ALT 14 U/L 5-48 N [facility] ALKALINE PHOSPHATASE 66 U/L 40-140 N [facility] alth TOTAL PROTEIN 6.7 G/DL 5.9-8.3 N [facility] ALBUMIN 4.5 G/DL 3.0-5.1 N [facility] GLOBULIN 2.2 G/DL 1.5-3.5 N [facility] ALB/GLOB RATIO 2.0 G/DL 1.0-3.0 N [facility] ID Date Data Source [id number] 07/26/2019 01:58:00 PM EDT [facility] Name Value Range Interpretation Code Description Data Marcela rce(s) Supporting Document(s) GLYCOSYLATED HGBA1C 10.5 % 4.1-6.5 H [facility] lt ID Date Data Source [id number] 07/26/2019 01:58:00 PM EDT [facility] Name Value Range Interpretation Code Description Data Marcela rce(s) Supporting Document(s) TRIGLYCERIDES 152 MG/DL 45-150 [facility] CHOLESTEROL 146 MG/DL 125-200 N [facility] LDL CHOLESTEROL 76 MG/DL 50-130 N [facility] HDL CHOLESTEROL 40 MG/DL 39-96 N [facility] CHOL/HDL RATIO 3.7 0-4.9 N [facility] ID Date Data Source [id number] 04/16/2019 02:37:00 PM EST [facility] Name Value Range Interpretation Code Description Data Marcela rce(s) Supporting Document(s) SODIUM 142 MEQ/L 135-145 N [facility] POTASSIUM 4.5 MEQ/L 3.5-5.3 N [facility] CHLORIDE 107 MEQ/L 94-110 N [facility] CARBON DIOXIDE 26 MEQ/L 22-33 [facility] ANION GAP 14 5-16 N [facility] BLOOD UREA NITRO 17 MG/DL 7-25 N [facility] CREATININE 1.3 MG/DL 0.6-1.4 [facility] GFR 54.1 ML/MIN [facility] Stage G3a - Mildly to moderately decrea sed kidney function GFR normal is >=90 The MDRD GFR calculation is considered valid between the ages of 18 and 75 years only. The GFR is an estimate of the Glomerular Filtration Rate. It is considered accurate in evaluating patients with Chronic Kidney Disease,but may underestimate kidney function in Healthy Patients. BUN/CREAT RATIO 13 8-36 N [facility] GLUCOSE 271 MG/DL 70-100 H [facility] CA 9.0 MG/DL 8.7-10.5 N [facility] BILIRUBIN,TOTAL 0.3 MG/DL 0.1-1.3 [facility] AST 14 U/L 5-40 N [facility] ALT 16 U/L 5-48 N [facility] ALKALINE PHOSPHATASE 73 U/L 40-140 N [facility] TOTAL PROTEIN 6.4 G/DL 5.9-8.3 N [facility] ALBUMIN 4.1 G/DL 3.0-5.1 N [facility] GLOBULIN 2.3 G/DL 1.5-3.5 N [facility] ALB/GLOB RATIO 1.8 G/DL 1.0-2.7 N [facility] ID Date Data Source [id number] 04/16/2019 02:37:00 PM EST [facility] Name Value Range Interpretation Code Description Data Marcela rce(s) Supporting Document(s) GLYCOSYLATED HGBA1C 9.2 % 4.1-6.5 [facility] ID Date Data Source [id number] 04/16/2019 02:37:00 PM EST [facility] Name Value Range Interpretation Code Description Data Marcela rce(s) Supporting Document(s) TRIGLYCERIDES 97 MG/DL 45-150 N [facility] CHOLESTEROL 160 MG/DL 125-200 N [facility] LDL CHOLESTEROL 99 MG/DL 50-130 N [facility] HDL CHOLESTEROL 42 MG/DL 39-96 N [facility] CHOL/HDL RATIO 3.8 0-4.9 N [facility] Procedure Social History Code Duration Value Status Description Data Source(s ) Smoking 03/25/2020 12:00:00 AM EST Never Smoker completed Never S moker eCW1 ([facility]) Smoking 07/27/2019 12:00:00 AM EDT Never Smoker completed Never S moker eCW1 ([facility]) Smoking 07/27/2019 12:00:00 AM EDT Never Smoker completed Never S moker eCW1 ([facility]) Smoking 07/27/2019 12:00:00 AM EDT Never Smoker completed Never S moker eCW1 ([facility]) Smoking 07/27/2019 12:00:00 AM EDT Never Smoker completed Never S moker eCW1 ([facility]) Smoking 07/27/2019 12:00:00 AM EDT Never Smoker completed Never S moker eCW1 ([facility]) Smoking 07/27/2019 12:00:00 AM EDT Never Smoker completed Never S moker eCW1 ([facility]) Smoking 07/27/2019 12:00:00 AM EDT Never Smoker completed Never S moker eCW1 ([facility]) Smoking 07/27/2019 12:00:00 AM EDT Never Smoker completed Never S moker eCW1 ([facility]) Smoking 07/27/2019 12:00:00 AM EDT Never Smoker completed Never S moker eCW1 ([facility]) Smoking 07/27/2019 12:00:00 AM EDT Never Smoker completed Never S moker eCW1 ([facility]) Smoking 07/27/2019 12:00:00 AM EDT Never Smoker completed Never S moker eCW1 ([facility]) Smoking 07/27/2019 12:00:00 AM EDT Never Smoker completed Never S moker eCW1 ([facility]) Smoking 07/27/2019 12:00:00 AM EDT Never Smoker completed Never S moker eCW1 ([facility]) Smoking 07/27/2019 12:00:00 AM EDT Never Smoker completed Never S moker eCW1 ([facility]) Vital Signs ID Date Data Source UNK Name Value Range Interpretation Code Description Data Source(s) Body mass index (BMI) [Ratio] 33.04 kg/m2 33.04 kg/m2 eCW1 ([facility]) Body height 67 [in_us] 67 [in_us] eCW1 ([facility]) Body weight Measured 211 [lb_av] 211 [lb_av] eC W1 ([facility]) Body weight Measured 211.2 [lb_av] 211.2 [lb_av ] eCW1 ([facility]) Diastolic blood pressure 72 mm[Hg] 72 mm[Hg] eCW1 ([facility]) Systolic blood pressure 130 mm[Hg] 130 mm[Hg] e CW1 ([facility]) Body temperature 98.2 [degF] 98.2 [degF] eCW1 ( [facility]) Respiratory rate 18 /min 18 /min eCW1 ([facility]) Heart rate 118 /min 118 /min eCW1 ([facility]) Body mass index (BMI) [Ratio] 33.07 kg/m2 33.07 kg/m2 eCW1 ([facility]) Body height 67 [in_us] 67 [in_us] eCW1 ([facility]) Diastolic blood pressure 72 mm[Hg] 72 mm[Hg] eCW1 ([facility]) Systolic blood pressure 122 mm[Hg] 122 mm[Hg] e CW1 ([facility]) Body temperature 98.1 [degF] 98.1 [degF] eCW1 ( [facility]) Respiratory rate 18 /min 18 /min eCW1 ([facility]) Heart rate 103 /min 103 /min eCW1 ([facility]) Body mass index (BMI) [Ratio] 33.76 kg/m2 33.76 kg/m2 eCW1 ([facility]) Body height 67 [in_us] 67 [in_us] eCW1 ([facility]) Body weight Measured 215.6 [lb_av] 215.6 [lb_av ] eCW1 ([facility]) Diastolic blood pressure 56 mm[Hg] 56 mm[Hg] eCW1 ([facility]) Systolic blood pressure 138 mm[Hg] 138 mm[Hg] e CW1 ([facility]) Body temperature 99.1 [degF] 99.1 [degF] eCW1 ( [facility]) Respiratory rate 16 /min 16 /min eCW1 ([facility]) Heart rate 87 /min 87 /min eCW1 ([facility]) Body mass index (BMI) [Ratio] 35.39 kg/m2 35.39 kg/m2 eCW1 ([facility]) Body height 67 [in_us] 67 [in_us] eCW1 ([facility]) Body weight Measured 226 [lb_av] 226 [lb_av] eC W1 ([facility]) Diastolic blood pressure 65 mm[Hg] 65 mm[Hg] eCW1 ([facility]) Systolic blood pressure 144 mm[Hg] 144 mm[Hg] e CW1 ([facility]) Body temperature 98.1 [degF] 98.1 [degF] eCW1 ( [facility]) Respiratory rate 18 /min 18 /min eCW1 ([facility]) Heart rate 83 /min 83 /min eCW1 ([facility]) Body mass index (BMI) [Ratio] 35.86 kg/m2 35.86 kg/m2 eCW1 ([facility]) Body height 67 [in_us] 67 [in_us] eCW1 ([facility]) Body weight Measured 229 [lb_av] 229 [lb_av] eC W1 ([facility]) ID Date Data Source [id number] 05/14/2020 11:15:00 AM EST [facility] Name Value Range Interpretation Code Description Data Source(s) WEIGHT 75.7 kilos 75.7 kilos [facility] HEIGHT 170.[address] [facility] WEIGHT 95.8 kilos 95.8 [facility] HEIGHT 152.4 centimeters 152.4 centimeters [facility] WEIGHT 78.3 kilos 78.3 [facility] HEIGHT 170.[address] [facility] ID Date Data Source [id number] 05/07/2020 11:37:00 AM EST [facility] Name Value Range Interpretation Code Description Data Source(s) WEIGHT 78.3 kilos 78.3 [facility] HEIGHT 170.[address] [facility] ID Date Data Source [id number] 05/07/2020 11:37:00 AM EST [facility] Name Value Range Interpretation Code Description Data Source(s) WEIGHT 78.3 kilos 78.3 [facility] HEIGHT 170.18 centimeters 170.18 centimeter [facility] WEIGHT 72.4 kilos 72.4 [facility] HEIGHT 170.[address] [facility] WEIGHT 82.1 kilos 82.1 [facility] HEIGHT 170.[address] [facility] Patient Treatment Plan of Care Planned Activity Planned Date Details Description Data Source (s) Glucometer 05/13/2019 12:00:00 AM EST e CW1 ([facility]) Glucometer 05/13/2019 12:00:00 AM EST e CW1 ([facility]) Glucometer 05/13/2019 12:00:00 AM EST e CW1 ([facility]) Glucometer 05/13/2019 12:00:00 AM EST e CW1 ([facility]) Physical Therapy evaluate and treat 05/10/2019 12:00:00 AM EST eCW1 ([facility]) 3 ML Insulin, Aspart, Human 100 UNT/ML Pen Injector [N ovoLog] 05/03/2019 12:00:00 AM EST eCW1 ([facility]) Amlodipine 5 MG Oral Tablet 02/27/2019 12:00:00 AM EST [facility]
[2020-05-18] MEDS ORDERED: BRIM1OPD OU (04:19)
--- NOTE | 2020-05-18 04:47 | HPEPDOC ---
General Date of Admission May 18, 2020 at 03:59 Date of Service: May 18, 2020 Chief Complaint The patient is a 74-year-old male admitted with a reason for visit of Cdiff,Hypotension,Arf. Source: Patient History of Present Illness Mr. Knott is a 74 year old male with diabetes mellitus, bilateral BKA, and recently diagnosed C.diff who presents with worsening diarrhea and inability to care for self at home. History obtained from patient, but may need to confirm with records from [facility]. Late March he was at [facility] and was diagnosed with C.diff diarrhea. He was given PO vancomycin and his diarrhea was improving. He was recently discharged last Monday. When he arrived home, his diarrhea started to get worse and in larger volumes. He reports about 6 BM in a day. Reports fever, but denies abdominal pain, nausea, lightheadedness, dyspnea, or chest pain. In the ED, he was found to have a low grade temperature of 100.3 and tachycardia of 104. He had leukocytosis of 19.5. Patient was hypotensive at 76/40. He is currently receiving fluid to reach 30mL/kg. Otherwise, he started to become hypoxic. Initially at room air, he required 40% ventimask to maintain saturation. Patient denies dyspnea and CXR has been clear. Lungs were diminished, but clear. Patient will be admitted to the ICU for Severe C.diff colitis, BELLA, and hypotension. Home Medications Scheduled Amlodipine Besylate (Amlodipine Besylate) 5 Mg Tablet, 5 MG PO DAILY, (Reported) Brimonidine Tartrate (Alphagan P) 100 Drop/5 Ml Soln, 1 DROP OU BID, (Reported) Esomeprazole Magnesium (Esomeprazole Magnesium Dr) 40 Mg Capsule.dr, 40 MG PO DAILY, (Reported) Ezetimibe (Ezetimibe) 10 Mg Tab, 10 MG PO DAILY, (Reported) Ferrous Sulfate (Ferrous Sulfate) 325 Mg Tablet, 325 MG PO TID, (Reported) Latanoprost (Xalatan) 0.005% 2.5ML Drops, 1 DROP OU QHS, (Reported) Lisinopril (Lisinopril) 20 Mg Tablet, 20 MG PO DAILY, (Reported) Metformin HCl (Metformin HCl) 1,000 Mg Tablet, 1,000 MG PO BID, (Reported) Multivitamins (Thera M Plus Tablet) 1 Each Tablet, 1 TAB PO DAILY Sennosides/Docusate Sodium (Senna Plus Tablet) 1 Each Tablet, 2 TAB PO BID, (Reported) Torsemide (Torsemide) 20 Mg Tablet, 20 MG PO DAILY, (Reported) Miscellaneous Medications [Med Rec Comment] , (Reported) PATIENT UNSURE OF MEDICATION NAMES AND WHAT HE TOOK TODAY. USED EXTERNAL MED HISTORY Allergies Coded Allergies: Penicillins (Verified Allergy, Mild, rash, 10/14/18) Past Medical History Medical History 1. IDDM2 w polyneuropathy 2. Chronic HTN 3. DLP 4. Iron deficiency anemia 5. Hypertension 6. Peripheral arterial disease 7. Recent diagnosis for C.diff diarrhea. Surgical History 1. Appendectomy 2. Right AKA 3. Left AKA Family History Denies known family history. Denies DM, heart disease, or pulmonary disease Social History * Smoker: Denies Alcohol: Denies Drugs: denies A-FIB/CHADSVASC A-FIB History Current/History of A-Fib/PAF?: No Review of Systems Constitutional: Reports: Fever Eyes: Denies: Vision change ENT: Denies: Sore Throat Skin: Denies: Rash Pulmonary: Denies: Dyspnea Cardiovascular: Denies: Chest Pain, Lt Headedness Gastrointestinal: Denies: Nausea, Abdominal Pain Genitourinary: Reports: Dysuria (Started on same day as diarrhea) Hematologic: Denies: Bruising Psych: Reports: Anxiety Physical Examination General Exam: Positive: Alert, Cooperative, No Acute Distress Eye Exam: Positive: EOMI; Negative: Sclera icteric ENT Exam: Positive: Atraumatic Neck Exam: Positive: Supple Chest Exam: Positive: Clear to auscultation, Diminished Heart Exam: Positive: Tachycardic, Regular Rhythm Abdomen Exam: Positive: Normal bowel sounds, Soft; Negative: Tenderness Extremity Exam: Positive: Edema (mild bilateral pitting in stump) Neuro Exam: Positive: Normal Speech, Cranial Nerves 3-12 NL Psych Exam: Positive: Mental status NL, Mood NL Vital Signs Vital Signs Date Time Temp Pulse Resp B/P (MAP) Pulse Ox O2 Delivery O2 Flow Rate FiO2 05/18/20 03:30 93 18 90/44 (59) 90 Venturi Mask 15.0 40 05/18/20 02:04 99.5 Laboratory Data Labs 24H Laboratory Tests 2 05/18/20 00:30: Neutrophils (%) (Auto) , Nucleated Red Blood Cells % (auto) 0.0, Neutrophils 80H, Band Neutrophils 6, Lymphocytes (Manual) 6L, Monocytes (Manual) 8H, Platelet Estimate NORMAL, Lactic Acid Level 1.5 05/18/20 00:31: Prothrombin Time 16.4H, Prothromb Time International Ratio 1.29, Activated Partial Thromboplast Time 30.7, Anion Gap 14, Glomerular Filtration Rate 34.3L, Calcium Level 7.9L, Total Bilirubin 0.3, Direct Bilirubin 0.1, Aspartate Amino Transf (AST/SGOT) 33, Alanine Aminotransferase (ALT/SGPT) 23, Alkaline Phosphatase 66, Total Creatine Kinase 630H, Creatine Kinase MB 8.1H, Creatine Kinase MB Relative Index 1.29, Troponin I < 0.02, Total Protein 6.0L, Albumin 2.6L, Albumin/Globulin Ratio 0.8, Lipase 44L 05/18/20 01:27: Bedside Glucose (Misc Panel) 444H 05/18/20 02:22: Urine Color YELLOW, Urine Appearance HAZY, Urine pH 5.0, Urine Specific [place] 1.014, Urine Protein NEGATIVE, Urine Glucose (UA) 3+H, Urine Ketones NEGATIVE, Urine Blood NEGATIVE, Urine Nitrite NEGATIVE, Urine Bilirubin NEGATIVE, Urine U robilinogen 0.2, Urine Leukocyte Esterase TRACEH, Urine WBC (Auto) 5H, Urine RBC (Auto) 1, Urine Hyaline Casts (Auto) 4, Urine Bacteria (Auto) NEGATIVE, Urine Squamous Epithelial Cells 0, Urine Mucus (Auto) SMALL, Urine Sperm (Auto) 05/18/20 03:02: Bedside Glucose (Misc Panel) 234H 05/18/20 03:45: Blood Gas Bicarbonate Standard 17.9L, Arterial Blood pH 7.341L, Arterial Blood Partial Pressure CO2 31.5L, Arterial Blood Partial Pressure O2 217.5H, Arterial Blood Total CO2 17.6L, Arterial Blood HCO3 16.7L, Arterial Blood Base Excess - 8.1L, Arterial Blood Oxygen Saturation 98.3 CBC/BMP Laboratory Tests 05/18/20 00:30 05/18/20 00:31 Microbiology Microbiology 05/18/20 Urine Culture, Received Pending 05/18/20 Respiratory Virus Panel (PCR) ([facility]) - Final, Complete 05/18/20 Gastrointestinal Tract Panel (PCR) - Final, Complete Clostridium Difficile A/B 05/18/20 Blood Culture, Received Pending 05/18/20 Blood Culture, Received Pending Assessment/Plan Mr. Knott is a 74 year old male with diabetes mellitus, bilateral BKA, and recently diagnosed C.diff who presents with worsening diarrhea and inability to care for self at home. This is his second C.diff diarrhea episode and most likely a continuation of the previous episode. He will need pulse tapering of his PO vancomycin. Otherwise, he is very fluid depleted. Will give IV fluids for BELLA. Otherwise, concerned that his CBC is actually concentrated and his H&H may be lower than what it actually reads. Will repeat CBC after rehydration. He may need a transfusion. Plan / VTE VTE Prophylaxis Ordered?: Yes Plan Plan 1. Severe C.diff diarrhea -Elevated WBC and elevated creatinine -Vancomycin 125mg PO q6hrs -Will need pulse tapering 2. Acute renal failure -2/2 significant volume loss from diarrhea and hypotension -IVF and avoid nephrotoxic agents 3. Hypotension -Most likely secondary to volume loss from diarrhea -Hold amlodipine, lisinopril, and torsemide -IVF 4. Anemia -Hemoglobin higher than baseline -Baseline 9, on admission 9.5 -Admission CBC may be hemoconcentrated -Recheck after hydration 5. Hypoxia -Unclear etiology -Lungs clear but diminished -Denies dyspnea -Dry CT demonstrate minimal depended atelectasis -ABG O2 saturation does not match SpO2 -Recommend obtaining VQ scan in the morning 6. DM -Sliding scale insulin -carbohydrate consistent diet 7. DVT ppx -Concern for hemoconcentration. Will recheck cbc after rehydration. May need transfusion. TEDs for this time. DUNIA SKELTON DO May 18, 2020 04:47
[2020-05-18] MEDS ORDERED: DIGOXIN INJ 0.5 MG/2 ML AMP (J1160) IV STA (06:09)
[2020-05-18] MEDS ORDERED: KCL 10MEQ IN STERILE WATER 100ML As Ordered ONE (06:10)
[2020-05-18] MEDS ORDERED: DIGOXIN INJ 0.5 MG/2 ML AMP (J1160) As Ordered ONE (06:10)
[2020-05-18] MEDS ORDERED: NS 1,000 ML IV SCH (06:15)
[2020-05-18] MEDS ORDERED: NOREPINEPHRINE 4 MG/4 ML AMP As Ordered ONE (06:22)
[2020-05-18] MEDS ORDERED: NOREPINEPHRINE BITARTRATE 8 MG in D5W 492 ML IV SCH ×2 (06:30→18:30)
[2020-05-18] MEDS ORDERED: AMIODARONE HCL 150 MG in IV 1 EA IV ONE ×2 (06:30→07:30)
[2020-05-18] MEDS ORDERED: LR 1,000 ML IV SCH (06:30)
[2020-05-18] MEDS: KCL 10MEQ/100ML SWI (KRUN) 10 MEQ in IV 1 EA IV SCH ×2 (07:10→07:53)
--- NOTE | 2020-05-18 07:26 | ECGEPIP ---
[facility] - ED Test Date: 2020-05-18 Pat Name: BRITNI FLEMING Department: Room: [place] [address] Gender: Male Food Service Representative: : 1945 Requested By: ANN MARIE Dick Order Number: [id number] Reading MD: Jose Jaramillo Measurements Intervals [place] Rate: 105 P: 56 SD: 166 QRS: 26 QRSD: 84 T: 96 QT: 306 QTc: 404 Interpretive Statements Sinus tachycardia NSTTW ABNORMALITY(S) SIMILAR TO 03/18/20 Electronically Signed on 05-18-2020 7:26:08 EST by Jose Jaramillo
[2020-05-18] MEDS ORDERED: LEVEMIR (INSULIN DETEMIR) 1 UNITS/0.01ML SC ONE (07:30)
[2020-05-18] MEDS ORDERED: AMIODARONE HCL 360 MG in IV 1 EA IV SCH (07:30)
[2020-05-18] MEDS: VANCOMYCIN ORAL SOL 250MG/5ML ORAL SYRINGE PO SCH ×3 (07:53→18:16)
[2020-05-18 08:10] LABS: HEMATOCRIT 30.3 % (42.0-52.0); HEMOGLOBIN 9.5 g/dl (13.5-17.5); MEAN CORPUSCULAR HEMOGLOBIN 28.3 pg (27.0-33.0); MEAN CORPUSCULAR HGB CONC 31.4 g/dl (32.0-36.5); MEAN CORPUSCULAR VOLUME 90.2 fl (80.0-96.0); PLATELET COUNT, AUTOMATED 283 10^3/uL (150-450); RED BLOOD COUNT 3.36 10^6/uL (4.30-6.10); WHITE BLOOD COUNT 21.4 10^3/uL (4.0-10.0)
[2020-05-18] MEDS: BRIMONIDINE 0.1% OPHTH SOLN 5 ML OU SCH ×2 (08:51→21:26)
[2020-05-18] MEDS: FERROUS SULFATE 325MG TAB PO SCH ×3 (08:51→21:26)
[2020-05-18] MEDS: MULTIVITAMINS/MINERALS THERAP 1 TAB PO SCH (08:51)
[2020-05-18] MEDS: OMEPRAZOLE 20 MG CAP PO SCH (08:51)
[2020-05-18 08:54] LABS: BLOOD UREA NITROGEN 57 MG/DL (7-18); CALCIUM LEVEL 7.3 MG/DL (8.8-10.2); CARBON DIOXIDE LEVEL 14 MEQ/L (21-32); CHLORIDE LEVEL 103 MEQ/L (98-107); CREATININE FOR GFR 1.81 MG/DL (0.70-1.30); FERRITIN 680 NG/ML (26-388); GLOMERULAR FILTRATION RATE 39.2 (>42); GLUCOSE, FASTING 285 MG/DL (70-100); IRON (FE) 14 UG/DL (65-175); LDH LACTATE DEHYDROGENASE 156 U/L (87-241); MAGNESIUM LEVEL 1.9 MG/DL (1.8-2.4); PERCENT SATURATION 8.3 % (19.7-50.0); POTASSIUM SERUM 3.3 MEQ/L (3.5-5.1); SODIUM LEVEL 134 MEQ/L (136-145); TOTAL IRON BINDING CAPACITY 169 UG/DL (250-450); TROPONIN I < 0.02 NG/ML (< 0.10)
[2020-05-18] MEDS ORDERED: SENOKOT S TAB PO SCH (09:00)
[2020-05-18] MEDS: HumaLOG INSULIN (NovoLOG) PER UNIT SC SCH ×3 (09:25→21:00)
[2020-05-18 11:26] LABS: ACETONE/KETONE 45.79 MG/DL (<2.81)
--- NOTE | 2020-05-18 12:11 | RO ---
OPERATIVE NOTE DATE OF OPERATION: 05/18/2020 PREPROCEDURE DIAGNOSIS: Septic shock. POSTPROCEDURE DIAGNOSIS: Septic shock. PROCEDURE: Central line procedure. ATTENDING PHYSICIAN: Elli Dawn MD. INDICATION: Vasopressor administration. CONSENT: Due to the emergent nature of the procedure, the procedure was performed emergently, and the permission was implied. Patient was offered central line placement in the right IJ, which he refused and elected to have the placement in the femoral region instead. PROCEDURE SUMMARY: A central line insertion practices form was completed by an independent observer. A time out was performed prior to procedure. Full sterile technique was maintained throughout the procedure including surgical cap, mask with protective eye wear, full gown, and sterile gloves. The patient was placed supine. The right groin region was prepped using chlorhexidine scrub and draped in sterile fashion using a fenestrated drape and a sterile probe cover employed. The right femoral vein was identified using ultrasound. Anesthesia was achieved over the vein using 1% lidocaine. Using real-time [id number] guidance, the introducer needle was inserted into the right femoral vein under direct ultrasound visualization. Venous blood was withdrawn. The syringe was removed, and a guidewire was advanced into the introducer needle. The introducer needle was removed over the guidewire. A small incision was made at the skin surface with a scalpel, and a dilator was exchanged over the guidewire. After appropriate dilation was obtained, the dilator was exchanged over the wire for a triple lumen central venous catheter. The wire was removed, and the catheter was sutured in place. A sterile chlorhexidine impregnated dressing was placed over the catheter at the insertion site. The patient tolerated the procedure without any hemodynamic compromise. At time of procedure completion, all ports were aspirated and flushed properly. Estimated blood loss was less than 2 mL. MTDD
[2020-05-18] MEDS: HEPARIN SOD (PORCINE) 5000UNITS/ML 1ML VIAL/SYRINGE SQ SCH ×2 (13:24→21:26)
--- NOTE | 2020-05-18 13:32 | CR ---
CONSULTATION Attending, Co-signing Physician: Dr. Elli Dawn M.D. DATE: 05/18/2020 REQUESTING PHYSICIAN: Moi Aguilar DO CHIEF REASON FOR CONSULTATION: Septic shock. HISTORY OF PRESENT ILLNESS: Mr. Knott is a pleasant 74-year-old male with history of insulin-dependent diabetes mellitus with neuropathy and b/l BKA, recent C. difficile infection in March, s/p completion of oral Vancomycin dosing, hypertension, peripheral arterial disease with the b/l BKA, dyslipidemia, and iron deficiency anemia, who presented to [facility] via EMS late in the evening of 05/17 for the chief complaint of worsening diarrhea and and inability to care for himself at home. In the ED, he was borderline febrile (T 100.3), hypotensive and hypoxic on room air. His initial WBC was 19.5 with 6% bands and a GI panel was positive for C. difficile A/B toxin. The patient remained hypotensive despite fluid resuscitation and around 6 a.m. on 05/18, spontaneously went into atrial fibrillation with rapid ventricular response, that was confirmed on 12-lead EKG. The admitting provider reached out to Dr. Dawn of the Critical Care Service who recommended patient be given fluids (in the form of LR), Levophed for hypotension, and Amiodarone for rhythm control since beta blockers were avoided due to his hypotension. Dr. Dawn subsequently came in and placed a femoral line central catheter. The femoral vein was used for central access because the patient refused to have one placed in his neck/internal jugular vein. Related to the previous diagnosis of C. difficile, Mr. Knott had presented to [facility] in late March 2020 and was found to have C. diff diarrhea and completed oral Vancomycin dosing while an inpatient. His diarrhea improved and he was subsequently discharged on May 13. Over the next four days at home, his diarrhea unfortunately worsened. He reported averaging about six bowel movements a day and did report subjective fevers at home. Related to the reported hypoxia in the ED, his sats were between 88 and 93 % and he was subsequently placed on a Venturi mask with 40% FiO2 and 15 liters. An ABG was done at that time, showing metabolic acidosis with adequate respiratory compromise. Initial labs also showed hyponatremia, hypokalemia. He was also found to be in acute renal failure with a serum creatinine 2.03 and a BUN of 59. On review, his baseline creatinine appears to be about 1-1.2. His calculated GFR was 34%, and a review of records indicate no significant h/o chronic kidney disease. He had an initial lactic acid of 1.5, and his serum glucose was 488. PAST MEDICAL HISTORY: 1. C. difficile infection late March 2020 diagnosed at [facility] and status post oral Vancomycin dosing as inpatient. 2. Insulin-dependent diabetes mellitus with neuropathy and bilateral below-knee amputation. 3. Peripheral arterial disease with aforementioned below-knee bilateral amputations. 4. Hypertension. 5. Iron deficiency anemia. 6. Dyslipidemia. PAST SURGICAL HISTORY: 1. Right below-knee amputation 26 years ago. 2. Left below-knee amputation one month ago. 3. Appendectomy. FAMILY HISTORY: Negative for any known diabetes, pulmonary disease or heart disease. SOCIAL HISTORY: The patient lives alone and usually gets around at home with the assistance of right lower extremity prosthesis as well as wheelchair. He does have a friend in [place] who he calls who is able to drive him places for errands. He denies any current or former smoking history. He has not had any alcohol since being diagnosed with DM in 1997. He denies any current or former illegal drug use. ALLERGIES: REPORTED ALLERGY TO PENICILLIN IN THE FORM OF MILD RASH FROM OCTOBER 14, 2018. HOME MEDICATIONS: 1. Amlodipine 5 mg daily orally. 2. Lisinopril 20 mg daily orally. 3. Torsemide 20 mg daily orally. 4. Levemir long-acting insulin 23 units at night and 35 units every morning. 5. Metformin 1000 mg oral tablets twice a day. 6. 325 mg Ferrous Sulfate three times a day. 7. Ezetimibe 10 mg orally daily. 8. Esomeprazole 40 mg capsule orally daily. 9. Brimonidine (Alphagan P) one drop OU twice daily. 10. Latanoprost one drop OU every night. 11. Senna Plus tablets twice a day. 12. Multivitamin. REVIEW OF SYSTEMS: Constitutional: Denies fever, chills, night sweats or unintentional change in weight. HEENT: Reports his mentation is much improved from the time he called EMS yesterday evening. Denies any headache, dizziness, lightheadedness. Denies blurry vision/double vision. Denies tinnitus. Denies sore throat. Cardiovascular: Denies chest pain, chest pressure, or palpitations. Respiratory: Denies increased work of breathing, feeling short of breath, cough or pleuritic chest pain. Gastrointestinal: He tolerated breakfast just fine and denies any current abdominal pain, nausea or vomiting. He does report continued diarrhea, last two loose stool bowel movements were this morning prior to shift change. Denies any blood in the stool. Lymphatic: Denies any lumps or bumps. Hematologic: Denies any easy bleeding or bruising. PHYSICAL EXAMINATION: GENERAL: Pleasant elderly male lying in bed. No acute distress. Alert and oriented x3. HEENT: Normocephalic, atraumatic. Non-injected, anicteric sclerae. There is conjunctival pallor present. Pupils are constricted at baseline somewhat but are equal, round and reactive to light and accommodation. Mucous membranes appear moist, there is no pharyngeal erythema or exudate. Other than two lower teeth, he's edentulous. NECK: Supple, somewhat wide. No lymphadenopathy appreciated. Trachea midline. No elevated JVP. CARDIOVASCULAR: Irregularly irregular rhythm with tachycardic rate. He is on telemetry showing atrial fibrillation with heart rates ranging between 1120 and 135 while we are in the room. No chest wall tenderness. RESPIRATORY: Diminished tidal volume with no significant adventitious breath sounds appreciated. Speaking full sentences. He is breathing room air. Symmetric chest expansion. GASTROINTESTINAL: Soft, somewhat obese, nontender, non-distended. There are hyperactive bowel sounds present. No hepatosplenomegaly is appreciated. There is no rigidity. EXTREMITIES: The patient has bilateral below-knee amputations. 2+ popliteal pulses palpated bilaterally. Incision sites on both lower extremities from amputation appear to be well healed and not infected. NEUROLOGIC: He is awake, alert and oriented x3. No focal neurologic deficits appreciated. Non-dysarthric speech. LABORATORY DATA: WBC 21.4, hemoglobin 9.5, hematocrit 30.3, platelet count 283,000. Initial CBC had 6% bands. Repeat BMP showed sodium 134, potassium 3.3, chloride 103, bicarb 14, anion gap 17, BUN 57, creatinine 1.81, calculated GFR 39.2%, glucose 285 (initial was 488). Initial lactic acid was 1.5, repeat seven hours later 1.3. Serum calcium 7.3, magnesium 1.9, AST 33, ALT 23, alkaline phosphatase 66, total creatinine kinase 630. Initial troponin negative, less than 0.02 with repeat seven hours later also negative at less than 0.02. Total protein 6, albumin 2.6. ABG was performed with following results: pH 7.341, PCO2 31.5, PO2 217.5, this was drawn while patient was on the Venturi mask with settings of 40% FiO2 and 15 liters. Urinalysis showed 3+ glucose, negative nitrite, trace leukocyte esterase, 5 urine white blood cells, no urine bacteria. There is a urine culture pending. Two blood cultures are pending. The aforementioned GI panel was positive for C. difficile toxin A/B and respiratory viral panel was negative. IMAGING: Chest x-ray portable was unremarkable for any effusion, consolidation or pneumothorax, essentially was a negative study. Chest CT without contrast showed gallstones and some minimal mild atelectasis in the lower lobes bilaterally but no significant infiltrate. ASSESSMENT AND PLAN: Mr. Knott is a 74-year-old male with recent C. difficile infection in March 2020 treated with oral Vancomycin as an inpatient, insulin- dependent diabetes mellitus with neuropathy and bilateral BKA, peripheral arterial disease with bilateral BKA, hypertension, dyslipidemia, iron deficiency anemia who presented late on the evening of May 17 to the [facility] ED via EMS after he had called 911 due to worsening diarrhea since discharge home from [facility] four days prior. He also felt unable to safely care for himself at home, and was having issues concentrating. Upon presentation to the ED, he was found to be septic, as well as in acute renal failure with leukocytosis and borderline fever. He was given fluid resuscitation and he remained hypotensive despite this and around change of shift developed atrial fibrillation with RVR and subsequently given Amiodarone, a central line was placed in the femoral vein and Levophed was started and the patient was switched to maintenance lactated Ringer's fluid. At that point manager fast food team had been consulted. 1. Septic shock secondary to severe C. difficile infection. The patient recently had C. diff infection at the end of last month at [facility], and was only discharged five days ago. He presented last night with leukocytosis as well as acute renal failure indicating that his C. difficile infection is severe. He was hypotensive despite fluid resuscitation and is now receiving Levophed. His pressures have come back up and he's had consistent SBPs in low 100s with MAPS in the upper 60s to 70 thus far this morning. He is now receiving maintenance fluids in the form of lactated Ringer's 75 mL per hour. We ordered a follow up lactic acid, which was 1.3; marking two values under 2. He was started on oral Vancomycin 125 mg every 6 hours. We recommend continued repletion of electrolytes as well as monitoring of his I's and O's to watch for fluid overload. Insertion of Johnson catheter was difficult and subsequently stopped and will be attempt at placement using Coudet. 2. Atrial fibrillation with rapid ventricular response. The patient does not have a known history of atrial fibrillation. Initial troponin was negative, with repeat also coming back negative. He presented in sinus rhythm and spontaneously went into Afib with RVR near change of shift this morning. With his peripheral arterial disease, he is a vasculopath and likely does meet criteria for anticoagulation as outpatient via CHADSVASC. At this time though, we will continue to work on correcting his arrhythmia and will dose DVT prophylaxis Heparin. We would recommend discharging the patient on anticoagulation after calculating his CHADSVASC. Continue with telemetry. Of note, the patient denied any palpitations, chest pain or chest pressure. The patient was in the process of receiving his second step of Amiodarone dosing at the time of our exam. Would cont with amiodarone for rate control/conversion given septic shock 3. High anion gap metabolic acidosis with compensatory respiratory alkalosis and non-anion gap metabolic acidosis. The losses from the diarrhea would usually manifest with non-anion gap metabolic acidosis, so the elevated anion gap acidosis initiated calculation of delta-delta. The delta-delta was 0.5, indicating that he has a mixed picture. With his history of insulin-dependent diabetes, there could be an element of DKA. We have subsequently ordered beta hydroxybutyrate to check for ketones. Should ketones be elevated, we'll likely switch the patient to NPO status and begin treating the ketoacidosis at that time with DKA protocol 4. Hyponatremia. This is likely a combination of pseudohyponatremia from his significantly elevated serum glucose, as well as some mild hypovolemic hyponatremia as well. Repeat BMP showed improvement in serum sodium. He is s/p 2.5 L NS boluses and is now getting maintenance LRs. 5. Hypoxia upon presentation. This was most likely a manifestation of his hypotension rather than from a pulmonary issue such as oxygenation, ventilation or obstruction problems. He is now breathing on room air with adequate saturations in the high 90s and speaking full sentences. Imaging was relatively unremarkable. 6. Acute renal failure. Baseline creatinine is around 1-1.2 and presenting serum creatinine was 2.03. It did improve upon repeat to 1.8. He has received 2.5 liters of fluid resuscitation to this point. Urine electrolytes have yet to be obtained to further characterize the BELLA, but this was most likely a prerenal condition from significant hypotension. It is important to note that the patient is on a diuretic at home, so urine urea would be needed for BELLA work-up. 7. History of hypertension. The patient presented with hypotension in the setting of septic shock secondary to severe C. diff. Therefore, his home blood pressure medications - - amlodipine and lisinopril - - were held. His home diuretic, torsemide, was also held. 8. DVT prophylaxis. As discussed above, we have started Heparin DVT prophylaxis dosing. Of note, he will likely need to be discharged on anticoagulation should he qualify via CHADSVASC criteria. 9. Code status: Per nursing, patient is in the process of officially transferring to DNR/DNI from full code at time of documentation. Total critical care time spent not including any procedures approx 1 hr and 45 mins IElli, conducted an independent examination and history of the patient and agree with the plan as detailed by the resident and discussed during rounds. BELLE
[2020-05-18] MEDS ORDERED: INSULIN IV RATE CHANGE DOCUMENTATION ML/HR XX SCH (14:15)
[2020-05-18] MEDS: AMIODARONE HCL 360 MG in IV 1 EA IV SCH (15:16)
[2020-05-18 15:20] LABS: CALCIUM LEVEL 6.8 MG/DL (8.8-10.2); CREATININE FOR GFR 1.54 MG/DL (0.70-1.30); GLOMERULAR FILTRATION RATE 47.2 (>42); MAGNESIUM LEVEL 1.9 MG/DL (1.8-2.4); PHOSPHORUS LEVEL 1.6 MG/DL (2.5-4.9); POTASSIUM SERUM 3.1 MEQ/L (3.5-5.1)
[2020-05-18] MEDS: KCL 20MEQ IN 100ML SWI (KRUN) 20 MEQ in IV 1 EA IV SCH ×4 (15:56→17:10)
[2020-05-18] MEDS ORDERED: KCL 20MEQ IN 0.45NS 1000ML 1,000 ML IV SCH (18:00)
[2020-05-18] MEDS ORDERED: KCL 20MEQ IN D5/0.45NS 1000ML 1,000 ML IV SCH (18:00)
[2020-05-18 18:54] LABS: CALCIUM LEVEL 7.6 MG/DL (8.8-10.2); CREATININE FOR GFR 1.59 MG/DL (0.70-1.30); GLOMERULAR FILTRATION RATE 45.5 (>42); PHOSPHORUS LEVEL 1.5 MG/DL (2.5-4.9); POTASSIUM SERUM 3.8 MEQ/L (3.5-5.1)
[2020-05-18] MEDS: INSULIN REGULAR IN 0.9 % NACL 100 UNIT in IV 1 EA IV SCH ×2 (20:24)
[2020-05-18] MEDS ORDERED: VANCOMYCIN HCL 500 MG in D5W MINI-BAG PLUS 100 ML IV ONE (20:45)
[2020-05-18] MEDS ORDERED: HumaLOG INSULIN (NovoLOG) PER UNIT SC SCH (21:00)
[2020-05-18] MEDS: LATANOPROST 0.005% OPHTH SOLN 2.5 ML OU SCH (21:25)
[2020-05-18] MEDS ORDERED: D5W/0.45% SODIUM CHLORIDE 1,000 ML IV SCH (22:30)
[2020-05-18 22:52] LABS: CALCIUM LEVEL 7.7 MG/DL (8.8-10.2); CREATININE FOR GFR 1.54 MG/DL (0.70-1.30); GLOMERULAR FILTRATION RATE 47.2 (>42); MAGNESIUM LEVEL 1.8 MG/DL (1.8-2.4)
[2020-05-18] MEDS: MEROPENEM INJ 1 GM in IV 1 EA IV SCH (23:49)
[2020-05-18] MEDS: LEVEMIR (INSULIN DETEMIR) 1 UNITS/0.01ML SC SCH (23:50)
[2020-05-19] VITALS (47 sets, daily range): BP systolic 88–160; BP diastolic 45–72
[2020-05-19] MEDS: VANCOMYCIN ORAL SOL 250MG/5ML ORAL SYRINGE PO SCH ×5 (00:37→23:11)
[2020-05-19] MEDS: VANCOMYCIN HCL 1,000 MG, VIAL MATE ADAPTER 1 EACH in D5W 250 ML IV SCH ×2 (00:37→12:26)
[2020-05-19] MEDS: INSULIN REGULAR IN 0.9 % NACL 100 UNIT in IV 1 EA IV SCH ×2 (01:14)
[2020-05-19] MEDS: AMIODARONE HCL 360 MG in IV 1 EA IV SCH (01:16)
[2020-05-19] MEDS: KCL 20MEQ IN D5/0.45NS 1000ML 1,000 ML IV SCH ×2 (03:07→04:03)
[2020-05-19] MEDS: HEPARIN SOD (PORCINE) 5000UNITS/ML 1ML VIAL/SYRINGE SQ SCH ×2 (05:30→13:23)
[2020-05-19 05:42] LABS: HEMATOCRIT 28.3 % (42.0-52.0); HEMOGLOBIN 9.1 g/dl (13.5-17.5); MEAN CORPUSCULAR HEMOGLOBIN 28.3 pg (27.0-33.0); MEAN CORPUSCULAR HGB CONC 32.2 g/dl (32.0-36.5); MEAN CORPUSCULAR VOLUME 88.2 fl (80.0-96.0); PLATELET COUNT, AUTOMATED 279 10^3/uL (150-450); RED BLOOD COUNT 3.21 10^6/uL (4.30-6.10); WHITE BLOOD COUNT 13.8 10^3/uL (4.0-10.0)
[2020-05-19 06:00] LABS: CALCIUM LEVEL 7.4 MG/DL (8.8-10.2); CREATININE FOR GFR 1.43 MG/DL (0.70-1.30); GLOMERULAR FILTRATION RATE 51.5 (>42); POTASSIUM SERUM 3.3 MEQ/L (3.5-5.1)
[2020-05-19] MEDS: HumaLOG INSULIN (NovoLOG) PER UNIT SC SCH ×4 (07:47→20:36)
[2020-05-19] MEDS ORDERED: POTASSIUM CHLORIDE 10 MEQ SR TABLET PO ONE (09:15)
[2020-05-19] MEDS: MULTIVITAMINS/MINERALS THERAP 1 TAB PO SCH (09:24)
[2020-05-19] MEDS: FERROUS SULFATE 325MG TAB PO SCH ×3 (09:24→20:36)
[2020-05-19] MEDS: BRIMONIDINE 0.1% OPHTH SOLN 5 ML OU SCH ×2 (09:25→20:37)
[2020-05-19] MEDS: MEROPENEM INJ 1 GM in IV 1 EA IV SCH ×2 (09:25→22:24)
[2020-05-19] MEDS: OMEPRAZOLE 20 MG CAP PO SCH (09:25)
[2020-05-19] MEDS ORDERED: MAG SULF 1GM/100ML (MAG RUN) 1 GM in IV 1 EA IV ONE (10:00)
--- NOTE | 2020-05-19 12:02 | IPNPDOC ---
Text Note Date of Service The patient was seen on 05/19/20. NOTE Subjective: Patient is a 74-year-old male with a history of IDDMT2, bilateral BKA, and recently diagnosed C. difficile that was treated for 10 days at [facility] in late March 2020. He presented to the hospital on 05/18/2020, complaining of diarrhea, fevers, and heart palpitations. He denied dyspnea, lightheadedness, chest pain, or abdominal pain on admission. Patient was hypotensive on admission and transferred to the ICU requiring a central line. Patient requested a femoral line to be placed instead. Patient has been admitted for severe C. difficile colitis, BELLA, and hypotension. Patient was found to be in diabetic ketoacidosis. High anion gap metabolic acidosis, respiratory alkalosis, and non-anion gap metabolic acidosis were found secondary to diabetic ketoacidosis, diarrhea from C. difficile colitis, and respiratory compensation, respectively. Patient is currently normotensive and being evaluated to downgrade from the ICU at this time. He does not currently require levophed for normotensive pressures. He is currently on oral vancomycin, 25 mg by mouth every 6 hours and IV meropenem. Patient reports no diarrhea at this time. He expresses good appetite and denies shortness of breath, chest pain, abdominal pain and is sitting upright and cooperative during exam. Nursing staff does not report any overnight events. He is now on the insulin sliding scale. Objective: General: Pleasant, NAD HEENT: NC, AT. EOMI, no scleral icterus. CV: Normal S1 and S2. No murmurs, gallops, or rubs. Resp: CTAB with full breath sounds. No wheezes, crackles, or rhonchi. No dullness to percussion. Abdomen: Hyperactive bowel sounds. Soft, NT, ND. Extremities: bilateral bka Integumentary: femoral line site is clean and dry, no erythema appreciated at site. Assessment/Plan: #Septic shock 2/2 severe C. Difficile colitis - normotensive today, off Levophed. - if fluid resuscitation is required, consider small boluses at first and consider electrolyte levels. - continue oral vancomycin at this time. - Discontinue femoral line tomorrow. #Bacteremia - Continue IV meropenem due to positive blood cultures on admission. - MRSA PCR screen ordered. - DC IV vancomycin if MRSA PCR is negative. - Leukocyte count trending downward. #IDDMT2 with DKA: - pseudohyponatremia likely 2/2 hyperglycemia, has corrected with management of hyperglycemia. - Pt was initially in mixed metabolic disturbance, including high anion gap met acidosis with respiratory alkalosis 2/2 DKA with non-anion gap met acidosis 2/2 diarrhea. - Metabolic disturbance resolved, anion gap has closed. - if volume resuscitation needed, please keep electrolyte levels in mind. #Hypokalemia and hypomagnesemia - resolved. - continue to monitor levels. #New-onset Afib with RVR: - no h/o atrial fibrillation. - likely 2/2 septic shock. - Will check ECHO / Thyroid function - Amiodarone was administered with return to normal sinus rhythm. - Continue Eliquis #Acute Renal Failure likely 2/2 pre-renal etiology: - Creatinine levels improved from yesterday. Today: 1.36, 05/19/20 - Baseline Cr is 1-1.2. #Hypertension: - home BP medications (lisinopril, amlodipine, torsemide) held due to septic shock presentation. DVT Prophylaxis: - Will start Eliquis Code Status: DNR/DNI. VS,Fishbone, I+O VS, Fishbone, I+O Laboratory Tests 05/18/20 14:36 05/18/20 18:18 05/18/20 22:17 05/19/20 05:26 Vital Signs Date Time Temp Pulse Resp B/P (MAP) Pulse Ox O2 Delivery O2 Flow Rate FiO2 05/19/20 07:15 70 98/56 (74) 96 Room Air 05/19/20 04:00 98.5 20 05/18/20 06:30 6.0 05/18/20 05:01 40 I&O- Last 24 Hours up to 6 AM 05/19/20 06:00 Intake Total 3400.25 ml Output Total 2300 ml Balance 1100.25 ml GME ATTESTATION GME ATTESTATION My faculty preceptor for this patient encounter was physically present during the encounter and was fully available. All aspects of the patient interview, examination, medical decision making process, and medical care plan development were reviewed and approved by the faculty preceptor. The faculty preceptor is aware and concurs with the plan as stated in the body of this note and will attest to such by his/her cosignature. ATTENDING NOTE I, Gentry Ludwig, have independently examined this patient and performed my own physical exam, as well as reviewed the documentation and edited where necessary. I have discussed in detail with the resident / student the findings and plan of treatment as documented by the resident / student and edited their note. I agree with their findings and treatment plan and have edited their documentation. I will continue to follow the patient during this hospital stay. Stewart Wasserman DO May 19, 2020 12:02 GENTRY LUDWIG MD May 19, 2020 13:50
[2020-05-19 13:49] LABS: CALCIUM LEVEL 8.1 MG/DL (8.8-10.2); CREATININE FOR GFR 1.36 MG/DL (0.70-1.30); GLOMERULAR FILTRATION RATE 54.5 (>42); POTASSIUM SERUM 4.1 MEQ/L (3.5-5.1)
[2020-05-19] MEDS: APIXABAN 5 MG TAB (ELIQUIS) PO SCH ×2 (14:48→20:36)
[2020-05-19] MEDS: LEVEMIR (INSULIN DETEMIR) 1 UNITS/0.01ML SC SCH (20:36)
[2020-05-19] MEDS: LATANOPROST 0.005% OPHTH SOLN 2.5 ML OU SCH (20:37)
[2020-05-20] VITALS (11 sets, daily range): BP systolic 86–146; BP diastolic 42–77
[2020-05-20 05:04] LABS: HEMATOCRIT 27.1 % (42.0-52.0); HEMOGLOBIN 8.4 g/dl (13.5-17.5); MEAN CORPUSCULAR HEMOGLOBIN 27.7 pg (27.0-33.0); MEAN CORPUSCULAR VOLUME 89.4 fl (80.0-96.0); PLATELET COUNT, AUTOMATED 278 10^3/uL (150-450); RED BLOOD COUNT 3.03 10^6/uL (4.30-6.10); WHITE BLOOD COUNT 6.7 10^3/uL (4.0-10.0)
[2020-05-20] MEDS: VANCOMYCIN ORAL SOL 250MG/5ML ORAL SYRINGE PO SCH ×3 (05:37→16:28)
[2020-05-20 05:50] LABS: CREATININE FOR GFR 1.33 MG/DL (0.70-1.30)
[2020-05-20 08:00] LABS: FREE T4 1.26 NG/DL (0.76-1.46); MAGNESIUM LEVEL 2.2 MG/DL (1.8-2.4); THYROID STIMULATING HORMONE 1.48 uIU/ML (0.358-3.740)
[2020-05-20 08:45] LABS: TOTAL T3 65.2 NG/DL (60.0-181.0)
[2020-05-20] MEDS: OMEPRAZOLE 20 MG CAP PO SCH (08:59)
[2020-05-20] MEDS: APIXABAN 5 MG TAB (ELIQUIS) PO SCH ×2 (08:59→20:51)
[2020-05-20] MEDS: FERROUS SULFATE 325MG TAB PO SCH ×3 (08:59→20:51)
[2020-05-20] MEDS: MULTIVITAMINS/MINERALS THERAP 1 TAB PO SCH (08:59)
[2020-05-20] MEDS: BRIMONIDINE 0.1% OPHTH SOLN 5 ML OU SCH ×2 (09:00→20:51)
[2020-05-20] MEDS: HumaLOG INSULIN (NovoLOG) PER UNIT SC SCH ×4 (09:00→20:53)
[2020-05-20 09:45] LABS: PHOSPHORUS LEVEL 1.7 MG/DL (2.5-4.9)
[2020-05-20] MEDS ORDERED: ACETAMINOPHEN TAB 650MG DOSE (2X325MG) PO PRN (10:30)
--- NOTE | 2020-05-20 11:55 | ECHO ---
DATE OF PROCEDURE: 05/19/2020 Age: 74 Gender: Male Height: 170 cm Weight: 76 kg REFERRING PHYSICIAN: Gentry Garcia M.D. INDICATION: Abnormal EKG. MEASUREMENTS: IVS 1.3 cm LV 3.8 cm LVPW 1.3 cm LA 3.7 cm Aorta 3.2 cm IVC 1.7 cm DOPPLER MEASUREMENT Mitral E wave velocity 103 Mitral A wave 91 E prime septal 7.6 E prime lateral 8.7 FINDINGS: This study is of acceptable technical quality. Underlying sinus rhythm. Left ventricle is normal size. Mild left ventricular hypertrophy is noted. Overall normal LV systolic function with estimated LVEF approximately 60% to 65%. Right ventricle also appears grossly normal. Both atria appear normal. Aortic valve is tricuspid. It is mildly sclerotic, but mobility is preserved. There are also mild degenerative abnormalities of the mitral valve with mild mitral annular calcifications. Tricuspid and pulmonic valves appear normal. Small amount of pericardial fat pad is noted. Inferior vena cava is of normal size and appropriately collapses with inspiration indicative of normal central venous pressure. The aortic root is normal. Aortic arch and abdominal aorta were not well seen. Doppler interrogation of the aortic valve reveals trivial stenosis with mean gradient 8 mmHg and no insufficiency. Remaining cardiac valves are functionally competent. Mitral inflow pattern and tissue Doppler imaging of the mitral annulus reveal most likely normal diastolic function, even though tissue Doppler velocities of the mitral annulus and mildly reduced. CONCLUSIONS: 1. Study is of fair technical quality. Underlying sinus rhythm. 2. Normal LV size with mild LVH, normal LV systolic and probably also normal diastolic function. 3. Aortic sclerosis with trivial stenosis and no insufficiency. 4. Competent mitral, tricuspid, and pulmonic valves. 5. Small amount of pericardial fat pad. 6. Likely normal central venous pressure. 7. Unable to estimate pulmonary artery pressure. MTDD
--- NOTE | 2020-05-20 12:13 | REP ---
INDICATION: Bacteremia. COMPARISON: CT 10/14/2018, CT chest 05/18/2020 TECHNIQUE: Noncontrast scanning through the abdomen pelvis with coronal and sagittal reconstructions provided. FINDINGS: CT abdomen: Lung bases again show some minimal dependent atelectatic change without definite pleural effusion. No parenchymal nodule or mass in the lung bases. No consolidation. The liver is not enlarged. There is no hepatic mass, biliary dilatation nor adjacent ascites. Gallbladder shows 4-5 calcified gallstones in the range of up to 7 mm diameter. No calcification noted in the common duct in the arielle hepatis or pancreatic head. Pancreas with some mild fatty atrophy but no peripancreatic inflammatory change, calcification, fluid collections or adenopathy. No splenomegaly or focal splenic lesion. No adjacent ascites adrenal glands are normal. No pathologic sized periaortic, mesenteric or other retroperitoneal lymphadenopathy. There is some vague infiltration of the mesenteric fat with some edema as a nonspecific mesenteritis. Small bowel loops are not abnormally dilated and are mostly fluid-filled. Abdominal portion of the colon shows stool, gas and fluid within without signs of diverticulitis or definite colitis. There is no appendix. Diffuse atherosclerotic calcifications of the aorta noted. No aneurysm. Adrenal glands normal. Kidneys show some mild perinephric stranding without mass, cyst, hydronephrosis or hydroureter. Calcifications of the renal vessels noted at and into bilateral renal laxmi. Lung window review of all CT slices in the abdomen and pelvis show no perforation or free air. There is no ventral or umbilical bowel herniation. There is a small amount of fat herniated into the umbilicus with only omentum within. The gap measures about 7 mm and the omental fat there is about 15 mm in greatest diameter. There are degenerative changes of the lumbar lower thoracic spine and lower lumbar facets. Visualized lower ribs were unremarkable. CT pelvis: The bony sacrum, SI joints, pelvis and hips show some mild degenerative changes but no destructive lesion or fracture. Abdominal and pelvic course of the ureters unremarkable without dilatation or stone. Bladder well filled with no wall thickening, mass or stone. Distal left colon and sigmoid unremarkable. Small bowel loops without dilatation. Some ill-defined subtle haziness in the mesentery may reflect some mesenteritis. No pelvic abscess. No ventral or inguinal hernia. There is some inguinal adenopathy up to 11 mm in short axis on the right there are some slightly larger nodes on both sides that are deeper and fat replaced as a benign finding. Atherosclerotic calcifications are seen throughout the iliac and femoral vessels and their major branches. Prostate indents the bladder base. No pelvic free fluid or adenopathy. IMPRESSION: 1. Nonspecific mild infiltration of mesenteric fat adjacent to small bowel loops which may reflect some mild mesenteritis. No abscess, small bowel wall thickening, colitis or diverticulitis identified. No perforation or free air. 2. Diffuse atherosclerotic calcifications of the aorta without aneurysm. 3. Cholelithiasis without evidence for cholecystitis. Common duct and pancreas grossly unremarkable. No pathologic sized adenopathy, ascites, hydronephrosis or renal stone disease. Some perinephric stranding is noted bilaterally. 4. Some degenerative changes of the spine pelvis and hips without compression fracture or destructive lesion. 5. Mild adenopathy in the inguinal regions similar to the previous CT in 2019. <Electronically signed by Cipriano Chavez > 05/20/20 [id number]
--- NOTE | 2020-05-20 18:02 | IPNPDOC ---
Text Note Date of Service The patient was seen on 05/20/20. NOTE Subjective: Patient is a 74-year-old male with a history of IDDMT2, bilateral BKA, and recently diagnosed C. difficile that was treated for 10 days at [facility] in late March 2020. He presented to the hospital on 05/18/2020, complaining of diarrhea, fevers, and heart palpitations. He denied dyspnea, lightheadedness, chest pain, or abdominal pain on admission. Patient was hypotensive on admission and transferred to the ICU requiring a central line. Patient requested a femoral line to be placed instead. Patient has been admitted for severe C. difficile colitis, BELLA, and hypotension. Patient was found to be in diabetic ketoacidosis. High anion gap metabolic acidosis, respiratory alkalosis, and non-anion gap metabolic acidosis were found secondary to diabetic ketoacidosis, diarrhea from C. difficile colitis, and respiratory compensation, respectively. Patient is currently normotensive and being evaluated to downgrade from the ICU at this time. He does not currently require Levophed for normotensive pressures. He is currently on oral vancomycin, 25 mg by mouth every 6 hours and IV meropenem. Patient reports no diarrhea at this time. He expresses good appetite and denies shortness of breath, chest pain, abdominal pain and is sitting upright and cooperative during exam. Nursing staff does not report any overnight events. He is now on the insulin sliding scale. Objective: General: Pleasant, NAD HEENT: NC, AT. EOMI, no scleral icterus. CV: Normal S1 and S2. No murmurs, gallops, or rubs. Resp: CTAB with full breath sounds. No wheezes, crackles, or rhonchi. No dullness to percussion. Abdomen: Hyperactive bowel sounds. Soft, NT, ND. Extremities: bilateral bka Integumentary: femoral line site is clean and dry, no erythema appreciated at site. Assessment/Plan: #Septic shock 2/2 severe C. Difficile colitis - normotensive today, off Levophed. - if fluid resuscitation is required, consider small boluses at first and consider electrolyte levels. - continue oral vancomycin at this time. - Ordered CT abdomen due to pt's treatment failure on prior vancomycin 10 day course (at [facility]). - Discontinuing femoral line today. - Transfer to Med/Surg today. - Patient will benefit from outpatient infusion of Zinplava (Bezlotoxumab) #Bacteremia - Blood cultures positive for gram positive cocci highly probable that they were contaminants (2 of 2 bottles, but drawn at the same time and are coagulase negative). ; repeat cultures pending - Discontinued IV meropenem for now, pending repeat culture results. - MRSA PCR screen ordered. - DC IV vancomycin if MRSA PCR is negative. - Will get CT abdomen for completion of workup - Leukocyte count trending downward. #IDDMT2 with DKA: - Pt's glycemia is currently being managed with insulin sliding scale, his glucose has been running, high, therefore basal insulin, detemir, was re- adjusted to 15 units from 10. - pseudohyponatremia likely 2/2 hyperglycemia, has corrected with management of hyperglycemia. - Pt was initially in mixed metabolic disturbance, including high anion gap met acidosis with respiratory alkalosis 2/2 DKA with non-anion gap met acidosis 2/2 diarrhea. - Metabolic disturbance resolved, anion gap has closed. - if volume resuscitation needed, please keep electrolyte levels in mind. #Hypokalemia and hypomagnesemia - resolved. - continue to monitor levels. #New-onset Afib with RVR: - no h/o atrial fibrillation. - likely 2/2 septic shock. - ECHO noted - Thyroid function wnl - Amiodarone was administered with return to normal sinus rhythm. - Continue Eliquis #Acute Renal Failure likely 2/2 pre-renal etiology: - Creatinine levels improved from yesterday. Today: 1.33, 05/20/20 - Baseline Cr is 1-1.2. #Hypertension: - home BP medications (lisinopril, amlodipine, torsemide) held due to septic shock presentation. DVT Prophylaxis: - Will c/w Eliquis Code Status: DNR/DNI. VS,Fishbone, I+O VS, Fishbone, I+O Laboratory Tests 05/20/20 04:46 Vital Signs Date Time Temp Pulse Resp B/P (MAP) Pulse Ox O2 Delivery O2 Flow Rate FiO2 05/20/20 14:00 98.6 77 16 126/56 (79) 98 Room Air 05/18/20 06:30 6.0 05/18/20 05:01 40 I&O- Last 24 Hours up to 6 AM 05/20/20 06:00 Intake Total 3120 ml Output Total 1975 ml Balance 1145 ml GME ATTESTATION My faculty preceptor for this patient encounter was physically present during the encounter and was fully available. All aspects of the patient interview, examination, medical decision making process, and medical care plan development were reviewed and approved by the faculty preceptor. The faculty preceptor is aware and concurs with the plan as stated in the body of this note and will attest to such by his/her cosignature. GME ATTESTATION GME ATTESTATION My faculty preceptor for this patient encounter was physically present during the encounter and was fully available. All aspects of the patient interview, examination, medical decision making process, and medical care plan development were reviewed and approved by the faculty preceptor. The faculty preceptor is aware and concurs with the plan as stated in the body of this note and will attest to such by his/her cosignature. ATTENDING NOTE I, Gentry Ludwig, have independently examined this patient and performed my own physical exam, as well as reviewed the documentation and edited where necessary. I have discussed in detail with the resident / student the findings and plan of treatment as documented by the resident / student and edited their note. I agree with their findings and treatment plan and have edited their documentation. I will continue to follow the patient during this hospital stay. Stewart Wasserman DO May 20, 2020 18:02 GENTRY LUDWIG MD May 20, 2020 18:20
[2020-05-20] MEDS: LATANOPROST 0.005% OPHTH SOLN 2.5 ML OU SCH (20:51)
[2020-05-20] MEDS: LEVEMIR (INSULIN DETEMIR) 1 UNITS/0.01ML SC SCH (20:51)
[2020-05-21] MEDS: VANCOMYCIN ORAL SOL 250MG/5ML ORAL SYRINGE PO SCH ×4 (00:10→17:00)
[2020-05-21 06:00] VITALS: BP 134/55
[2020-05-21 06:15] LABS: HEMATOCRIT 27.5 % (42.0-52.0); HEMOGLOBIN 8.6 g/dl (13.5-17.5); MEAN CORPUSCULAR HEMOGLOBIN 27.8 pg (27.0-33.0); MEAN CORPUSCULAR HGB CONC 31.3 g/dl (32.0-36.5); PLATELET COUNT, AUTOMATED 291 10^3/uL (150-450); RED BLOOD COUNT 3.09 10^6/uL (4.30-6.10); WHITE BLOOD COUNT 6.3 10^3/uL (4.0-10.0)
[2020-05-21 06:28] LABS: BLOOD UREA NITROGEN 18 MG/DL (7-18); CALCIUM LEVEL 7.8 MG/DL (8.8-10.2); CARBON DIOXIDE LEVEL 23 MEQ/L (21-32); CHLORIDE LEVEL 113 MEQ/L (98-107); CREATININE FOR GFR 1.04 MG/DL (0.70-1.30); GLOMERULAR FILTRATION RATE > 60.0 (>42); GLUCOSE, FASTING 221 MG/DL (70-100); POTASSIUM SERUM 3.9 MEQ/L (3.5-5.1); SODIUM LEVEL 142 MEQ/L (136-145)
[2020-05-21] MEDS: HumaLOG INSULIN (NovoLOG) PER UNIT SC SCH ×4 (07:50→20:32)
[2020-05-21] MEDS: OMEPRAZOLE 20 MG CAP PO SCH (08:34)
[2020-05-21] MEDS: FERROUS SULFATE 325MG TAB PO SCH ×3 (08:34→20:40)
[2020-05-21] MEDS: NEUTRA-PHOS 1.5 GM PACKET PO SCH ×3 (08:34→20:40)
[2020-05-21] MEDS: BRIMONIDINE 0.1% OPHTH SOLN 5 ML OU SCH ×2 (08:34→20:42)
[2020-05-21] MEDS: MULTIVITAMINS/MINERALS THERAP 1 TAB PO SCH (08:34)
[2020-05-21] MEDS: APIXABAN 5 MG TAB (ELIQUIS) PO SCH ×2 (08:34→20:40)
[2020-05-21 10:19] LABS: APPEARANCE, URINE CLEAR (CLEAR); BACTERIA, URINE AUTO NEGATIVE (NEGATIVE); BILIRUBIN, URINE AUTO NEGATIVE (NEGATIVE); BLOOD, URINE BLOOD NEGATIVE (NEGATIVE); COLOR, URINE STRAW (YELLOW); GLUCOSE, URINE (UA) AUTO 3+ mg/dL (NEGATIVE); KETONE, URINE AUTO NEGATIVE (NEGATIVE); LEUKOCYTE ESTERASE, URINE AUTO NEGATIVE (NEGATIVE); MUCUS, URINE SMALL (NEGATIVE); NITRITE, URINE AUTO NEGATIVE (NEGATIVE); PROTEIN, URINE AUTO NEGATIVE (NEGATIVE); RBC, URINE AUTO 0 /HPF (0-3); SPECIFIC GRAVITY URINE AUTO 1.008 (1.002-1.035); SQUAMOUS EPITHELIAL CELL UR AU 0 /HPF (0-6); UROBILINOGEN, URINE AUTO 0.2 mg/dL (0.0-2.0); WBC, URINE AUTO 1 /HPF (0-3)
--- NOTE | 2020-05-21 11:07 | IPNPDOC ---
Text Note Date of Service The patient was seen on 05/21/20. NOTE Subjective: Patient is a 74-year-old male with a history of IDDMT2, bilateral BKA, and recently diagnosed C. difficile that was treated for 10 days at [facility] in late March 2020. He presented to the hospital on 05/18/2020, complaining of diarrhea, fevers, and heart palpitations. He denied dyspnea, lightheadedness, chest pain, or abdominal pain on admission. Patient was hypotensive on admission and transferred to the ICU requiring a central line. Patient requested a femoral line to be placed instead. Patient has been admitted for severe C. difficile colitis, BELLA, and hypotension. Patient was found to be in diabetic ketoacidosis. High anion gap metabolic acidosis, respiratory alkalosis, and non-anion gap metabolic acidosis were found secondary to diabetic ketoacidosis, diarrhea from C. difficile colitis, and respiratory compensation, respectively. Patient is currently normotensive and has been downgraded from the ICU at this time. He does not currently require Levophed for normotensive pressures. Pt is currently on oral vancomycin, 125 mg by mouth every 6 hours. Patient reports no diarrhea at this time. He reports two semi-formed stools today. He expresses good appetite and denies shortness of breath, chest pain, abdominal pain and is sitting upright and cooperative during exam. Nursing staff does not report any overnight events. He is now on the insulin sliding scale. Objective: General: Pleasant, NAD HEENT: NC, AT. EOMI, no scleral icterus. CV: Normal S1 and S2. No murmurs, gallops, or rubs. Resp: CTAB with full breath sounds. No wheezes, crackles, or rhonchi. No dullness to percussion. Abdomen: Hyperactive bowel sounds. Soft, NT, ND. Extremities: bilateral bka Integumentary: femoral line site is clean and dry, no erythema appreciated at site. Assessment/Plan: #Septic shock 2/2 severe C. Difficile colitis - normotensive today, off Levophed. - if fluid resuscitation is required, consider small boluses at first and consider electrolyte levels. - Ordered CT abdomen due to relapsing C. Diff after vancomycin 10 day course (at [facility]). - stopped oral vancomycin today. - start dificid tomorrow 200mg bid for 5 days. - will discharge on 200mg every other day for 20 days to decrease risk of recurrence, per ID. - Patient will benefit from outpatient infusion of Zinplava (Bezlotoxumab) (750mg IV infusion on discharge, per ID). - ID consulted, primary team appreciates input. - avoid use of antibiotics IV to avoid recurrence of C.difficile colitis #Bacteremia - Blood cultures positive for gram positive cocci highly probable that they were contaminants (2 of 2 bottles, but drawn at the same time and are coagulase negative); repeat cultures pending. - Blood culture - s/p IV meropenem for now - MRSA PCR negative; s/p IV vancomycin - CT abdomen / pelvis 05/20: 1. Nonspecific mild infiltration of mesenteric fat adjacent to small bowel loops which may reflect some mild mesenteritis. No abscess, small bowel wall thickening, colitis or diverticulitis identified. No perforation or free air. 2. Diffuse atherosclerotic calcifications of the aorta without aneurysm. 3. Cholelithiasis without evidence for cholecystitis. Common duct and pancreas grossly unremarkable. No pathologic sized adenopathy, ascites, hydronephrosis or renal stone disease. Some perinephric stranding is noted bilaterally. 4. Some degenerative changes of the spine pelvis and hips without compression fracture or destructive lesion. 5. Mild adenopathy in the inguinal regions similar to the previous CT in 2019. - Leukocyte count trending downward. #Possible UTI - urine cultures from admission came back positive for E. faecalis, Proteus Mirabilis, and E. coli. - pt stated that he before he was admitted, he was sitting in his own stool, likely contaminated culture findings - UA from admission is not consistent with urine culture results. - repeat UA negative #IDDMT2 with DKA: - Pt's glycemia is currently being managed with insulin sliding scale, his glucose has been running, high, therefore basal insulin, detemir, was re- adjusted to 15 units from 10. - pseudohyponatremia likely 2/2 hyperglycemia, has corrected with management of hyperglycemia. - Pt was initially in mixed metabolic disturbance, including high anion gap met acidosis with respiratory alkalosis 2/2 DKA with non-anion gap met acidosis 2/2 diarrhea. - Metabolic disturbance resolved, anion gap has closed. - if volume resuscitation needed, please keep electrolyte levels in mind. #Electrolyte disturbances - hypokalemia, resolved. - ordered magnesium levels, ordered - continue to monitor levels. #New-onset Afib with RVR: - no h/o atrial fibrillation. - likely 2/2 septic shock. - ECHO noted - Thyroid function wnl - Amiodarone was administered with return to normal sinus rhythm. - Continue Eliquis 5mg. #Acute Renal Failure likely 2/2 pre-renal etiology: - resolved. Creatinine levels improved from yesterday. Today: 1.04, 05/21/20 - Baseline Cr is 1-1.2. #Hypertension: - home BP medications (lisinopril, amlodipine, torsemide) held due to septic shock presentation. DVT Prophylaxis: - Will c/w Eliquis Code Status: DNR/DNI. VS,Fishbone, I+O VS, Fishbone, I+O Laboratory Tests 05/21/20 05:33 Vital Signs Date Time Temp Pulse Resp B/P (MAP) Pulse Ox O2 Delivery O2 Flow Rate FiO2 05/21/20 06:00 97.1 76 18 134/55 (81) 98 05/20/20 14:00 Room Air 05/18/20 06:30 6.0 05/18/20 05:01 40 I&O- Last 24 Hours up to 6 AM 05/21/20 06:00 Intake Total 2165 ml Output Total 2125 ml Balance 40 ml GME ATTESTATION My faculty preceptor for this patient encounter was physically present during the encounter and was fully available. All aspects of the patient interview, examination, medical decision making process, and medical care plan development were reviewed and approved by the faculty preceptor. The faculty preceptor is aware and concurs with the plan as stated in the body of this note and will attest to such by his/her cosignature. ATTENDING NOTE I, Gentry Ludwig, have independently examined this patient and performed my own physical exam, as well as reviewed the documentation and edited where necessary. I have discussed in detail with the resident / student the findings and plan of treatment as documented by the resident / student and edited their note. I agree with their findings and treatment plan and have edited their documentation. I will continue to follow the patient during this hospital stay. Stewart Wasserman DO May 21, 2020 11:07 GENTRY LUDWIG MD May 21, 2020 13:24
[2020-05-21 11:15] LABS: MAGNESIUM LEVEL 1.7 MG/DL (1.8-2.4); PHOSPHORUS LEVEL 2.6 MG/DL (2.5-4.9)
[2020-05-21 14:00] VITALS: BP 127/91
--- NOTE | 2020-05-21 14:51 | CCN ---
PULMONARY CRITICAL CARE NOTE DATE: 05/19/2020 SUBJECTIVE: Justo was seen and examined by the Pulmonary Critical Care Service this morning while sitting upright on the bedside. Since our last dictation yesterday, he was in diabetic ketoacidosis and that was appropriately treated with insulin drip during the evening and overnight - - after first correcting his potassium. Looking over the overnight orders, the patient's anion gap quickly closed and sugars came down and he is now currently off of insulin drip and is eating and drinking with no significant issues. At this time, he is currently receiving IV fluids in the form of D5-1/2 normal saline with potassium chloride added. Also, a change since yesterday's dictation is he reverted back to sinus rhythm from atrial fibrillation with RVR around 10:45 a.m. yesterday morning, 05/18. Speaking with nursing, he remained in sinus rhythm on telemetry through the overnight into this morning. One other significant update is overnight his initial blood cultures resulted with both showing preliminary results of gram positive cocci in clusters and gram positive rods in one sample, and gram positive cocci in pairs and chains and gram positive rods in the other sample. The overnight service ordered repeat blood cultures and initiated antibiotic coverage for bacteremia in the form of IV Vancomycin and IV Meropenem. Of particular note, the patient denies any fevers or chills overnight or this morning. He did report some night sweats around change of shift. Per nursing, he did have two small loose stools over the overnight period. Since we had come on consultation, he had 2-3 small watery stools yesterday around midday and now the two overnight reported stools. He denies any abdominal pain, nausea, vomiting or blood in the stools. On review this morning, in addition to the aforementioned pertinent positives and negatives, Justo also denied any chest pain, chest pressure or palpitations through the overnight or this morning. OBJECTIVE: GENERAL: Very pleasant elderly male seated comfortably at the bedside at time of exam, in no acute distress. Alert and oriented x3. HEENT: Normocephalic, atraumatic. He is wearing eyeglasses. Pupils remain somewhat constricted but are equal bilaterally, reactive to light and accommodation. No significant conjunctival pallor. Mucous membranes continue to appear moist. There is no pharyngeal erythema or exudate, other than two lower teeth he is edentulous. NECK: Supple. Trachea is midline. No lymphadenopathy appreciated. CARDIOVASCULAR: He continues to be on telemetry. Regular rate, regular sinus rhythm. Normal S1, S2. No significant murmurs or rubs are appreciated. Capillary refill between 2-3 seconds. He has fainter radial pulses bilaterally but very strong bilateral axillary pulses were palpated. RESPIRATORY: Somewhat diminished tidal volume, otherwise no adventitious breath sounds were appreciated. Symmetric chest expansion. He is breathing room air and speaking in full sentences. GASTROINTESTINAL: Soft, moderately obese, nontender and nondistended. Normoactive bowel sounds are present throughout. No hepatosplenomegaly is appreciated. No rigidity is appreciated. EXTREMITIES: The patient has bilateral below the knee amputations. It appears as though the skin at the distal aspect of his right lower extremity around the amputation site is a little bit more erythematous as compared to the left and the skin is a little bit [employer] and more coarse. NEUROLOGIC: He is awake, alert and oriented x3. No focal neurologic deficits were appreciated. Non-dysarthric speech. Responds appropriately to all questions and commands, maintains good eye contact. LABORATORIES: WBC 13.8, hemoglobin 9.1, hematocrit 28.3, platelets 279,000. Serum sodium 137, potassium 3.3, chloride 107, bicarbonate 22, BUN 36, creatinine 1.43 with a calculated GFR of 51%, and glucose of 296. Calcium is 7.4. Anion gap of 8. A phosphorus yesterday evening was 1.0 and magnesium was 1.8. Urine culture continues to be pending. As stated in subjective section, two initial blood cultures showed preliminary growth, one showing gram positive cocci in pairs, chains and clusters while the other grew gram positive cocci in clusters. There are two pending repeat blood cultures at this time. As mentioned in yesterday's documentation, gastrointestinal panel showed positive growth C. difficile A/B. IMAGING: There was no new imaging today. ASSESSMENT AND PLAN: 1. Gram positive cocci bacteremia. As discussed, one sample grew gram positive cocci in clusters and gram positive rods, while the other grew gram positive cocci in pairs and chains and gram positive rods. Repeat cultures are pending. Overnight team started patient on both IV Meropenem and IV Vancomycin. We recommended to the Hospitalist Service that a MRSA screen be ordered. In the event of a negative result on MRSA screen, we recommended to the Hospitalist service to discontinue the IV Vancomycin as the patient is currently fighting a severe C. difficile infection and is already on oral Vancomycin and this would help decrease antibiotic burden. Of note, his white count has actually gone down today versus yesterday. He remained afebrile overnight. The only positive constitutional symptom was the aforementioned night sweats. 2. Diabetic ketoacidosis, resolved. As discussed in subjective section of this note, patient's anion gap quickly closed with initiation of insulin drip and he was subsequently switched over to D5-1/2 normal saline and then was subsequently bridged from there. As of this morning, he was eating and drinking with no issues and had been started on short-acting sliding scale insulin before meals and at night as well as 10 units of long-acting insulin at night. He did have the high anion gap metabolic acidosis with compensatory respiratory alkalosis and a non-anion gap metabolic acidosis on yesterday's ABG. This prompted further investigation with a delta-delta indicating a mixed picture and subsequently beta hydroxybutyrate was ordered - - this resulted at 45, and DKA treatment was started. We discontinued his IV fluids this morning because the patient is tolerating oral intake with no issues. He maintains continual good urinary output via bedside urinal. In addition, the most recent fingerstick was elevated at 296 and he was receiving D5-1/2 Normal Saline this morning so therefore we stopped that. 3. Atrial fibrillation with rapid ventricular response, resolved. As mentioned in the subjective section, patient spontaneously reverted back to sinus rhythm around 10:45 a.m. yesterday while in the midst of getting the second step of amiodarone. He has remained in sinus rhythm since that time and continues to be on telemetry. He is receiving DVT prophylaxis Heparin dosing at this time but as discussed extensively in our consultation note yesterday, with his history, he likely would meet criteria via CHADS-VASc calculation for outpatient anticoagulation and this is recommended for calculation upon discharge to assess for that. In the meantime, he continues to deny any chest pain, chest pressure, or palpitations. 4. Septic shock secondary to severe C. difficile infection, resolved. Patient has now been off Levophed for his hypotension for almost 20 hours. While pressures are on the softer side around systolics in the low 100s, his mean arterial pressure continues to be in the 70s. He is tolerating oral intake at this time and his IV fluids were subsequently stopped this morning. Of note, in addition to possible source outside of the C. difficile infection is the potential for bacteremia with the preliminary positive cultures as discussed above. He remains on IV Meropenem at this time as well as IV Vancomycin. Should MRSA screen come back negative, we recommended to the primary service to discontinue the IV Vancomycin. He remains on the p.o. Vancomycin for the C. difficile infection. 5. Severe C. difficile infection. He remains on p.o. Vancomycin 125 mg q. 6 hours. His white count has gone down today and his renal function has improved. Also of note, the patient has had four watery small stools in the past 24 hours which is a significant decrease from the 6 to 7 he was having on a daily basis prior to presenting to the hospital. There is no reported blood in the stool. 6. Electrolyte abnormalities. Both hypokalemia and hypomagnesemia on morning labs. With the discontinuation of the KCl in D5-1/2 normal saline IV fluids, we gave an oral 40 mEq dose as well as one magnesium sulfate run in order to address this. The fluids were stopped because he is now tolerating oral intake. 7. Acute renal failure, improving. Creatinine has improved to 1.43 today - - baseline runs 1-1.2 - - with a BUN of 36 and calculated GFR is now up to 51%. He was given initial fluid resuscitation for septic shock and remained on fluids throughout the DKA treatment process yesterday. His renal functioning appears to have improved. This was initially thought to be a result of a prerenal cause likely from severe hypotension. 8. History of hypertension. His home antihypertensive medications were held in the setting of his hypotension secondary to septic shock. His pressures improved with Levophed and that has been discontinued now for almost 24 hours. His pressures are still on the softer side but a MAP is in the 70s and at this point it appears as though his home antihypertensives continue to be held. He remains on telemetry. 9. DVT prophylaxis: As discussed in the atrial fibrillation assessment section of this note, he is on Heparin DVT prophylaxis dosing at this time. With the episode of atrial fibrillation with RVR it would be prudent to calculate CHADS-VASc upon discharge from the hospital to assess whether he needs to be on outpatient anticoagulation. 10.General conditioning: Orders have been placed for consultation with patient family services as the patient lives alone, is a bilateral below the knee amputee and had been having greater difficulty caring for himself at home. The primary service this morning placed consultations with both Physical Therapy and Occupational Therapy. We did discuss this morning with the patient the possibility of needing rehabilitation prior to being sent home and he seemed to be in agreement with that. 11.Code status: Patient is now officially a do not resuscitate/do not intubate after paperwork was completed yesterday, transitioning him to DNR/DNI from full code status. At this time, the Pulmonary Critical Care Service will be signing off as Justo's emergent issues have resolved. Thank you for allowing us to participate in the care of Mr. Knott and we are available should further questions or issues arise. EBLLE
--- NOTE | 2020-05-21 17:55 | CR ---
CONSULTATION DATE: 05/21/2020 Asked to consult by Dr. Garcia for evaluation of Clostridium (C) difficile colitis. HISTORY OF PRESENT ILLNESS: Mr. Knott is a 74-year-old elderly gentleman who was hospitalized at [facility] on March 18, discharged on April 02 to acute rehabilitation, where he spent a couple weeks and discharged home on April 15. The patient had during that hospitalization below-knee amputation for group G streptococcus infection with gangrene of the left foot. He did well and has complete healing of the stump, but he developed C. difficile colitis and was admitted to [facility]. The patient states that he was discharged too early from [facility]. Was given oral vancomycin but states he did not have any more antibiotics at home, and his diarrhea got worse. He had about six bowel movements. He had fever but did not have any abdominal pain. No nausea, vomiting. The patient was in septic shock. He was admitted to the intensive care unit (ICU) and had a quick improvement. He was treated with intravenous (IV) fluids, vancomycin. Initially received also broad-spectrum antibiotics, including vancomycin IV and meropenem that were discontinued on May 20. The patient's white count has decreased from 21,000 to 6,000. Patient is irritable today and does not want to answer questions, does not want to be bothered. MEDICAL HISTORY: 1. Peripheral vascular disease, status post below-knee amputation bilateral 2. Insulin-dependent diabetes with neuropathy. 3. Hypertension. 4. Dyslipidemia. 5. Iron-deficiency anemia. 6. C. difficile diarrhea in March 2020, treated at [facility]. SURGICAL HISTORY: 1. Appendectomy. 2. Right below-knee amputation 26 years ago. 3. Left below-knee amputation in February 2020. FAMILY HISTORY: Nonrevealing. SOCIAL HISTORY: He lives in [place]. He denies smoking or alcohol use. LABORATORY DATA: White count is 6.3, hemoglobin 8.6, hematocrit 27.5, platelets 291. Sodium 142, potassium 3.9, chloride 113, bicarbonate 23, BUN 18, creatinine 1.04. On admission his creatinine had bumped up to 2.03. Calcium 7.8, phosphorus 2.6, magnesium 1.7. TSH 1.48, free T4 of 1.26, total T3 of 65.2. Beta hydroxybutyrate was 45.79. Methicillin-resistant Staphylococcus aureus (MRSA) screen was negative. Influenza A, B, and SARS-CoV was negative. Gastrointestinal (GI) panel was positive for C. difficile. Blood culture was positive for Enterococcus (E) faecalis in one set. Anther set had Staphylococcus hominis. Urine culture had Proteus mirabilis, E. coli, and E. faecalis, but urinalysis had only 1 white cell and 0 red cells. I suspect these are contaminants. Repeat blood cultures on May 18 at 6 and 2057, which was within 8 hours from admission, blood cultures are negative. CT abdomen and pelvis done on May 20 showed a nonspecific mesenteric small-bowel loop with enteritis, cholelithiasis, some degenerative changes of the spine, but no colitis noted. Chest CT: Cholelithiasis with dependent atelectasis in lower lobes. Chest x-ray showed no change, no cardiomegaly or pleural effusion. Clear lungs. PHYSICAL EXAMINATION: He is an elderly grumpy gentleman in no acute distress. Answers questions appropriately but does not want to be bothered by the physicians in the room. Temperature is 98.5. His last temperature was on May 17 at 100.3. HEART: Normal S1, S2, distant. LUNGS: Clear. No wheezes, rales, or rhonchi. ABDOMEN: Obese, soft, nontender with normal bowel sounds. BACK: No costovertebral angle (CVA) or lumbosacral tenderness. EXTREMITIES: Right below-knee amputation stump healed with erythema at the liner margin. Looks eczematous. Left stump completely healed. No tenderness or redness. GENITOURINARY: Normal for age. He has mild redness of the right groin site where he had a central line. IMPRESSION: 1. Severe Clostridium (C) difficile colitis in an elderly gentleman who was admitted with severe leukocytosis, acute kidney injury, and who did not respond to oral vancomycin. The patient needs to be switched to oral fidaxomicin, which has a much lesser rate of recurrence. 2.His blood cultures from May 18 look like they are contaminants. He had 4 blood CX in 1 day and the first 2 had 2 different pathogens when done in ER His urine culture had three pathogens with 1 white cell in the urinalysis that is not consistent with a urinary tract infection PLAN: Discontinue oral vancomycin. Switch to fidaxomicin 200 mg by mouth twice a day, which could be used for 5 days twice a day and then every other day for another 20 days. That tapering schedule decreases the risk of recurrence. Would also recommend using Zinplava upon discharge at the dose of 10 mg//kg. Patient weighs 76 kg. Infusion at 760 mg IV could be done upon discharge. Continue his probiotics. Avoid use of antibiotics IV to avoid recurrence. MTDD
[2020-05-21] MEDS: FIDAXOMICIN 200 MG TAB (DIFICID) PO SCH (20:40)
[2020-05-21] MEDS: LEVEMIR (INSULIN DETEMIR) 1 UNITS/0.01ML SC SCH (20:40)
[2020-05-21] MEDS: LATANOPROST 0.005% OPHTH SOLN 2.5 ML OU SCH (20:42)
[2020-05-21 22:00] VITALS: BP 163/71
[2020-05-22 06:00] VITALS: BP 110/53
[2020-05-22 06:00] LABS: HEMATOCRIT 27.9 % (42.0-52.0); HEMOGLOBIN 8.8 g/dl (13.5-17.5); MEAN CORPUSCULAR HGB CONC 31.5 g/dl (32.0-36.5); MEAN CORPUSCULAR VOLUME 88.9 fl (80.0-96.0); PLATELET COUNT, AUTOMATED 312 10^3/uL (150-450); RED BLOOD COUNT 3.14 10^6/uL (4.30-6.10); WHITE BLOOD COUNT 7.1 10^3/uL (4.0-10.0)
[2020-05-22 06:18] LABS: BLOOD UREA NITROGEN 17 MG/DL (7-18); CALCIUM LEVEL 7.9 MG/DL (8.8-10.2); CARBON DIOXIDE LEVEL 26 MEQ/L (21-32); CHLORIDE LEVEL 111 MEQ/L (98-107); CREATININE FOR GFR 0.95 MG/DL (0.70-1.30); GLOMERULAR FILTRATION RATE > 60.0 (>42); GLUCOSE, FASTING 213 MG/DL (70-100); SODIUM LEVEL 142 MEQ/L (136-145)
[2020-05-22 08:28] LABS: MAGNESIUM LEVEL 1.5 MG/DL (1.8-2.4); PHOSPHORUS LEVEL 3.9 MG/DL (2.5-4.9)
[2020-05-22] MEDS: OMEPRAZOLE 20 MG CAP PO SCH (09:29)
[2020-05-22] MEDS: APIXABAN 5 MG TAB (ELIQUIS) PO SCH ×2 (09:29→21:43)
[2020-05-22] MEDS: FERROUS SULFATE 325MG TAB PO SCH ×3 (09:29→21:43)
[2020-05-22] MEDS: MULTIVITAMINS/MINERALS THERAP 1 TAB PO SCH (09:29)
[2020-05-22] MEDS: HumaLOG INSULIN (NovoLOG) PER UNIT SC SCH ×4 (09:31→21:44)
[2020-05-22] MEDS: FIDAXOMICIN 200 MG TAB (DIFICID) PO SCH ×2 (09:32→21:43)
[2020-05-22] MEDS: BRIMONIDINE 0.1% OPHTH SOLN 5 ML OU SCH ×2 (09:41→21:44)
[2020-05-22] MEDS: NEUTRA-PHOS 1.5 GM PACKET PO SCH (09:42)
[2020-05-22] MEDS: MAGNESIUM OXIDE 400MG TAB (MAG-OX) PO SCH (09:44)
[2020-05-22] MEDS ORDERED: MAG SULF 1GM/100ML (MAG RUN) 1 GM in IV 1 EA IV ONE (10:00)
[2020-05-22] MEDS ORDERED: ELIQ5TAB PO (11:38)
[2020-05-22] MEDS ORDERED: DIFI200T PO (11:38)
[2020-05-22] MEDS ORDERED: TORS10TA3 PO (12:08)
[2020-05-22 14:00] VITALS: BP 119/60
--- NOTE | 2020-05-22 19:27 | IPNPDOC ---
Text Note Date of Service The patient was seen on 05/22/20. NOTE Subjective: Patient is a 74-year-old male with a history of IDDMT2, bilateral BKA, and recently diagnosed C. difficile that was treated for 10 days at [facility] in late March 2020. He presented to the hospital on 05/18/2020, complaining of diarrhea, fevers, and heart palpitations. He denied dyspnea, lightheadedness, chest pain, or abdominal pain on admission. Patient was hypotensive on admission and transferred to the ICU requiring a central line. Patient requested a femoral line to be placed instead. Patient has been admitted for severe C. difficile colitis, BELLA, and hypotension. Patient was found to be in diabetic ketoacidosis. High anion gap metabolic acidosis, respiratory alkalosis, and non-anion gap metabolic acidosis were found secondary to diabetic ketoacidosis, diarrhea from C. difficile colitis, and respiratory compensation, respectively. Patient is currently normotensive and has been downgraded from the ICU at this time. He does not currently require Levophed for normotensive pressures. Oral vancomycin was discontinued yesterday per Dr. West's consult. Pt is starting Dificid today and awaiting placement at correction. Patient reports no diarrhea at this time. He reports two semi-formed stools today. He expresses good appetite and denies shortness of breath, chest pain, abdominal pain and is sitting upright and cooperative during exam. Nursing staff does not report any overnight events. He is on the insulin sliding scale. Objective: General: Pleasant, NAD HEENT: NC, AT. EOMI, no scleral icterus. CV: Normal S1 and S2. No murmurs, gallops, or rubs. Resp: CTAB with full breath sounds. No wheezes, crackles, or rhonchi. No dullness to percussion. Abdomen: Hyperactive bowel sounds. Soft, NT, ND. Extremities: bilateral bka Integumentary: femoral line site is clean and dry, no erythema appreciated at site. Assessment/Plan: #Septic shock 2/2 severe C. Difficile colitis - normotensive today, off Levophed. - if fluid resuscitation is required, consider small boluses at first and consider electrolyte levels. - Ordered CT abdomen due to relapsing C. Diff after vancomycin 10 day course (at [facility]). - stopped oral vancomycin yesterday. - start Dificid today 200mg bid for 5 days. - will discharge on 200mg every other day for 20 days to decrease risk of re currence, per ID. - Patient will benefit from outpatient infusion of Zinplava (Bezlotoxumab) (750mg IV infusion on discharge, per ID). - ID consulted, primary team appreciates input. - avoid use of antibiotics IV to avoid recurrence of C.difficile colitis #Bacteremia - Blood cultures positive for gram positive cocci highly probable that they were contaminants (2 of 2 bottles, but drawn at the same time and are coagulase negative); repeat cultures pending. - Blood culture - s/p IV meropenem for now - MRSA PCR negative; s/p IV vancomycin - CT abdomen / pelvis 05/20: 1. Nonspecific mild infiltration of mesenteric fat adjacent to small bowel loops which may reflect some mild mesenteritis. No abscess, small bowel wall thickening, colitis or diverticulitis identified. No perforation or free air. 2. Diffuse atherosclerotic calcifications of the aorta without aneurysm. 3. Cholelithiasis without evidence for cholecystitis. Common duct and pancreas grossly unremarkable. No pathologic sized adenopathy, ascites, hydronephrosis or renal stone disease. Some perinephric stranding is noted bilaterally. 4. Some degenerative changes of the spine pelvis and hips without compression fracture or destructive lesion. 5. Mild adenopathy in the inguinal regions similar to the previous CT in 2019. - Leukocyte count trending downward. #Possible UTI - urine cultures from admission came back positive for E. faecalis, Proteus Mirabilis, and E. coli. - pt stated that before he was admitted, he was sitting in his own stool, likely contaminated culture findings - received 3 days of IV meropenem - UA from admission is not consistent with urine culture results. - repeat UA negative #IDDMT2 with DKA: - Pt's glycemia is currently being managed with insulin sliding scale, his glucose has been running, high, therefore basal insulin, detemir, was re- adjusted to 15 units from 10. - pseudohyponatremia likely 2/2 hyperglycemia, has corrected with management of hyperglycemia. - Pt was initially in mixed metabolic disturbance, including high anion gap met acidosis with respiratory alkalosis 2/2 DKA with non-anion gap met acidosis 2/2 diarrhea. - Metabolic disturbance resolved, anion gap has closed. - if volume resuscitation needed, please keep electrolyte levels in mind. #Electrolyte disturbances - hypokalemia, resolved. - ordered magnesium levels, ordered - continue to monitor levels. #New-onset Afib with RVR: - no h/o atrial fibrillation. - likely 2/2 septic shock. - ECHO noted - Thyroid function wnl - Amiodarone was administered with return to normal sinus rhythm. - Continue Eliquis 5mg. #Acute Renal Failure likely 2/2 pre-renal etiology: - resolved. Creatinine levels improved. - Baseline Cr is 1-1.2. #Hypertension: - home BP medications (lisinopril, amlodipine, torsemide) held due to septic shock presentation. - anticipating discharge tomorrow. DVT Prophylaxis: - Will c/w Eliquis Code Status: DNR/DNI. VS,Fishbone, I+O VS, Fishbone, I+O Laboratory Tests 05/22/20 05:22 Vital Signs Date Time Temp Pulse Resp B/P (MAP) Pulse Ox O2 Delivery O2 Flow Rate FiO2 05/22/20 14:00 97.6 78 18 119/60 (79) 99 05/20/20 14:00 Room Air 05/18/20 06:30 6.0 05/18/20 05:01 40 I&O- Last 24 Hours up to 6 AM 05/22/20 06:00 Intake Total 2100 ml Output Total 4075 ml Balance -1975 ml GME ATTESTATION GME ATTESTATION My faculty preceptor for this patient encounter was physically present during the encounter and was fully available. All aspects of the patient interview, examination, medical decision making process, and medical care plan development were reviewed and approved by the faculty preceptor. The faculty preceptor is aware and concurs with the plan as stated in the body of this note and will attest to such by his/her cosignature. ATTENDING NOTE I, Gentry Ludwig, have independently examined this patient and performed my own physical exam, as well as reviewed the documentation and edited where necessary. I have discussed in detail with the resident / student the findings and plan of treatment as documented by the resident / student and edited their note. I agree with their findings and treatment plan and have edited their documentation. I will continue to follow the patient during this hospital stay. Stewart Wasserman DO May 22, 2020 19:27 GENTRY LUDWIG MD May 23, 2020 09:23
[2020-05-22] MEDS: LATANOPROST 0.005% OPHTH SOLN 2.5 ML OU SCH (21:44)
[2020-05-22] MEDS: LEVEMIR (INSULIN DETEMIR) 1 UNITS/0.01ML SC SCH (21:44)
[2020-05-22 22:00] VITALS: BP 140/59
[2020-05-23 06:00] VITALS: BP 147/64
[2020-05-23 06:56] LABS: MAGNESIUM LEVEL 1.6 MG/DL (1.8-2.4); PHOSPHORUS LEVEL 4.5 MG/DL (2.5-4.9)
[2020-05-23] MEDS: HumaLOG INSULIN (NovoLOG) PER UNIT SC SCH (08:11)
[2020-05-23] MEDS: FIDAXOMICIN 200 MG TAB (DIFICID) PO SCH (08:11)
[2020-05-23] MEDS: OMEPRAZOLE 20 MG CAP PO SCH (08:11)
[2020-05-23] MEDS: FERROUS SULFATE 325MG TAB PO SCH (08:11)
[2020-05-23] MEDS: NEUTRA-PHOS 1.5 GM PACKET PO SCH (08:11)
[2020-05-23] MEDS: MAGNESIUM OXIDE 400MG TAB (MAG-OX) PO SCH (08:12)
[2020-05-23] MEDS: MULTIVITAMINS/MINERALS THERAP 1 TAB PO SCH (08:12)
[2020-05-23] MEDS: BRIMONIDINE 0.1% OPHTH SOLN 5 ML OU SCH (08:12)
[2020-05-23] MEDS: APIXABAN 5 MG TAB (ELIQUIS) PO SCH (08:12)
[2020-05-23] MEDS ORDERED: MAG SULF 1GM/100ML (MAG RUN) 1 GM in IV 1 EA IV ONE (09:00)
--- NOTE | 2020-05-23 09:15 | DS.PDOC ---
Discharge Summary General Date of Admission May 18, 2020 at 03:59 Date of Discharge 05/23/2020 Attending Physician: GENTRY GARCIA MD Specialist/Consultants Involve: Gill West MD Discharge Summary PROCEDURES PERFORMED DURING STAY: Femoral line placement, 05/18/2020. ADMITTING DIAGNOSES: 1. Severe C. difficile colitis. 2. Acute renal failure. 3. Hypotension. 4. Anemia. 5. Hypoxia. 6. Diabetes mellitus DISCHARGE DIAGNOSES: 1. Status post septic shock secondary to severe C. difficile colitis. 2. C. difficile colitis 3. Insulin-dependent diabetes mellitus, DKA, resolved. 4. Hypomagnesemia. 5. New onset A. fib with RVR. 6. Hypertension. COMPLICATIONS/CHIEF COMPLAINT: Cdiff,Hypotension,Arf. HISTORY OF PRESENT ILLNESS: Mr. Knott is a 74 year old male with diabetes mellitus, bilateral BKA, and recently diagnosed C.diff who presents with worsening diarrhea and inability to care for self at home. History obtained from patient, but may need to confirm with records from [facility]. Late March he was at [facility] and was diagnosed with C.diff diarrhea. He was given PO vancomycin and his diarrhea was improving. He was recently discharged last Monday. When he arrived home, his diarrhea started to get worse and in larger volumes. He reports about 6 BM in a day. Reports fever, but denies abdominal pain, nausea, lightheadedness, dyspnea, or chest pain. In the ED, he was found to have a low grade temperature of 100.3 and tachycardia of 104. He had leukocytosis of 19.5. Patient was hypotensive at 76/40. He is currently receiving fluid to reach 30mL/kg. Otherwise, he started to become hypoxic. Initially at room air, he required 40% ventimask to maintain saturation. Patient denies dyspnea and CXR has been clear. Lungs were diminished, but clear. Patient will be admitted to the ICU for Severe C.diff colitis, BELLA, and hypotension. HOSPITAL COURSE: Patient presented to the hospital via EMS from home on May 18 2020, complaining of diarrhea, fevers, and heart palpitations. He had been admitted to [facility] for C. difficile colitis and treated with oral vancomycin there at the end of March 2020. Upon admission, he was transferred to the ICU immediately upon admission and required a central line placement due to being in septic shock despite fluid resuscitation. Patient requested a femoral line to be placed instead of an internal jugular vein central access, despite being counseled on the risk of infection due to C. difficile colitis. Patient also spontaneously went into atrial fibrillation with RVR, confirmed by EKG and required 1 dose of amiodarone, after which patient's heart rhythm went back to normal sinus. An ABG was done in the emergency room upon admission due to patient's hypoxia and requirement of Venturi mask with 40% FiO2 to reach oxyg en saturation between 88 and 93%. Patient had high anion gap metabolic acidosis secondary to diabetic ketoacidosis. Patient was started on oral vancomycin 125 mg every 6 hours. Due to the new onset atrial fibrillation with RVR. Patient was given prophylactic dose of heparin drip and then was bridged to Apixaban 2.5 mg twice a day. Patient's creatinine on admission was 2.03 which corrected to 1 with fluid resuscitation and antibiotic administration. Patient's antihypertensive medications were held during his stay due to soft blood pressures. At first on admission, patient's blood cultures 2 were positive and urine cultures were positive for's 3 separate organisms. Patient received 3 days of IV meropenem and vancomycin. These were discontinued after these cultures were deemed to be contaminated, per discussion with ID. Blood cultures were drawn at the same time and probably from the same site. Urinalysis was not consistent with urine culture findings and he shouldn't did not have leukocytosis. CT chest and CXR also did not show any infectious etiology. Therefore, IV meropenem and vancomycin were discontinued. Upon consultation with ID, oral vancomycin was discontinued and oral Dificid was started. Throughout the patient's stay, patient developed hypokalemia, hypomagnesemia and hypo-phosphatemia. These were appropriately replaced with oral potassium, oral magnesium and magnesium runs, a nd oral phosphate, respectively. DISCHARGE MEDICATIONS: Please see below. ALLERGIES: Please see below. PHYSICAL EXAMINATION ON DISCHARGE: VITAL SIGNS: Please see below. GENERAL: In no acute distress, cooperative on exam, is aware of his pending transfer to [facility] today. HEENT: No scleral icterus, no nasal discharge, oral mucosa moist. CARDIOVASCULAR EXAMINATION: Regular rate and rhythm, no murmurs, rubs or gallops, no lower extremity edema RESPIRATORY EXAMINATION: Clear to auscultation bilaterally, no wheezes, rales or rhonchi ABDOMINAL EXAMINATION: Soft, nontender, distended EXTREMITIES: Bilateral BKA, chronic erythema of the right knee due to prosthesis, left hand mild swelling possibly due to left-sided antebrachial IV line SKIN: No open ulcers appreciated NEUROLOGICAL EXAMINATION: Good movement of upper and lower extremities PSYCHIATRIC EXAMINATION: Alert and oriented 3, cooperative LABORATORY DATA: Please see below. IMAGIN05/18/2020 chest without contrast: 1. Cholelithiasis. 2. Minimal dependent atelectasis in the lower lobes with no interval infiltrates since 08/08/2016. 05/18/2020hest x-ray: Lungs: Unremarkable. No consolidation. Pleural spaces: Unremarkable. No pleural effusion. No pneumothorax. Heart/Mediastinum: Unremarkable. No cardiomegaly. Bones/joints: Unremarkable. 05/20/2020 abdomen: 1. Nonspecific mild infiltration of mesenteric fat adjacent to small bowel loops which may reflect some mild mesenteritis. No abscess, small bowel wall thickening, colitis or diverticulitis identified. No perforation or free air. 2. Diffuse atherosclerotic calcifications of the aorta without aneurysm. 3. Cholelithiasis without evidence for cholecystitis. Common duct and pancreas grossly unremarkable. No pathologic sized adenopathy, ascites, hydronephrosis or renal stone disease. Some perinephric stranding is noted bilaterally. 4. Some degenerative changes of the spine pelvis and hips without compression fracture or destructive lesion. 5. Mild adenopathy in the inguinal regions similar to the previous CT in 2019. PROGNOSIS: Fair ACTIVITY: As tolerated. DIET: Consistent carbohydrate diet DISCHARGE PLAN: Discharge to [facility]. Continue Dificid for 23 more days. DISCHARGE INSTRUCTIONS: 1. Please follow-up with PCP within the next 2 weeks to follow-up on new onset atrial fibrillation during hospital stay and for evaluating for further workup and regimen for this condition. 2. Continue Dificid 200 mg by mouth twice a day for 3 more days after discharge. Then take Dificid 200 mg twice a day every other day for 20 days. 3. Consider IV Zemplar by at 10 mg/kg approximate effusion should be 760 mg IV as an outpatient infusion 4. Continue probiotics. 5. Cautious use of broad spectrum IV antibiotics to prevent recurrence. 6. Continue Apixaban 2.5 mg twice a day for new-onset atrial fibrillation with RVR hospital course. 7. Remain compliant with treatment plan and medications 8. Return to the ER if you experience any problems ITEMS TO FOLLOWUP ON ON OUTPATIENT: 1. Please follow-up with PCP within the next 2 weeks to follow-up on new onset atrial fibrillation during hospital stay and for evaluating for further workup and regimen for this condition. 2. Continue Dificid 200 mg by mouth twice a day for 3 more days after discharge. Then take Dificid 200 mg twice a day every other day for 20 days. 3. Consider IV Zemplar by at 10 mg/kg approximate effusion should be 760 mg IV as an outpatient infusion 4. Continue probiotics. 5. Avoid use of IV antibiotics to prevent recurrence. 6. Continue Apixaban 2.5 mg twice a day for new-onset atrial fibrillation with RVR hospital course. DISCHARGE CONDITION: Stable. TIME SPENT ON DISCHARGE: 35 minutes. Vital Signs/I&Os Vital Signs Date Time Temp Pulse Resp B/P (MAP) Pulse Ox O2 Delivery O2 Flow Rate FiO2 05/23/20 06:00 96.8 75 19 147/64 (91) 99 Room Air 05/18/20 06:30 6.0 05/18/20 05:01 40 I&O- Last 24 Hours up to 6 AM 05/23/20 06:00 Intake Total 1800 ml Output Total 4250 ml Balance -2450 ml Laboratory Data Labs 24H Laboratory Tests 2 05/22/20 08:52: Bedside Glucose (Misc Panel) 293H 05/22/20 11:49: Bedside Glucose (Misc Panel) 301H 05/22/20 16:32: Bedside Glucose (Misc Panel) 94 05/22/20 21:25: Bedside Glucose (Misc Panel) 290H 05/23/20 05:37: Phosphorus Level 4.5, Magnesium Level 1.6L 05/23/20 05:51: Bedside Glucose (Misc Panel) 214H FSBS Laboratory Tests Test 05/22/20 08:52 05/22/20 11:49 05/22/20 16:32 05/22/20 21:25 Range/Units Bedside Glucose (Misc Panel) 293 301 94 290 83-110 MG/DL Test 05/23/20 05:51 Range/Units Bedside Glucose (Misc Panel) 214 83-110 MG/DL Microbiology Microbiology 05/18/20 Blood Culture - Preliminary, Resulted No Growth after 72 hours. All specime... 05/18/20 Blood Culture - Preliminary, Resulted No Growth after 72 hours. All specime... 05/18/20 Urine Culture - Final, Complete Proteus Mirabilis Escherichia Coli Enterococcus Faecalis 05/18/20 Respiratory Virus Panel (PCR) ([facility]) - Final, Complete 05/18/20 Gastrointestinal Tract Panel (PCR) - Final, Complete Clostridium Difficile A/B 05/18/20 Blood Culture - Final, Complete Enterococcus Faecalis Actinomyces Viscosus 05/18/20 Blood Culture - Final, Complete Staphylococcus Hominis Ssp Shirlene Corynebacterium Species Discharge Medications Scheduled Apixaban (Eliquis) 5 Mg Tablet, 5 MG PO BID Brimonidine Tartrate (Alphagan P) 0.1% 5ML Drops, 1 DROP OU BID, (Reported) Esomeprazole Magnesium (Esomeprazole Magnesium Dr) 40 Mg Capsule.dr, 40 MG PO DAILY, (Reported) Ezetimibe (Ezetimibe) 10 Mg Tab, 10 MG PO DAILY, (Reported) Ferrous Sulfate (Ferrous Sulfate) 325 Mg Tablet, 325 MG PO TID, (Reported) Fidaxomicin (Dificid) 200 Mg Tablet, 200 MG PO BID Please administer fidaximin 200mg BID for four more days. Then administer 200mg BID every other day for 20 days. Latanoprost (Xalatan) 0.005% 2.5ML Drops, 1 DROP OU QHS, (Reported) Metformin HCl (Metformin HCl) 1,000 Mg Tablet, 1,000 MG PO BID, (Reported) Multivitamins (Thera M Plus Tablet) 1 Each Tablet, 1 TAB PO DAILY Sennosides/Docusate Sodium (Senna Plus Tablet) 1 Each Tablet, 2 TAB PO BID, (Reported) Torsemide (Torsemide) 10 Mg Tablet, 1 TAB PO DAILY Miscellaneous Medications [Med Rec Comment] , (Reported) PATIENT UNSURE OF MEDICATION NAMES AND WHAT HE TOOK TODAY. USED EXTERNAL MED HISTORY Allergies Coded Allergies: Penicillins (Verified Allergy, Mild, rash, 10/14/18) GME ATTESTATION My faculty preceptor for this patient encounter was physically present during the encounter and was fully available. All aspects of the patient interview, examination, medical decision making process, and medical care plan development were reviewed and approved by the faculty preceptor. The faculty preceptor is aware and concurs with the plan as stated in the body of this note and will attest to such by his/her cosignature. GME ATTESTATION GME ATTESTATION My faculty preceptor for this patient encounter was physically present during the encounter and was fully available. All aspects of the patient interview, examination, medical decision making process, and medical care plan development were reviewed and approved by the faculty preceptor. The faculty preceptor is aware and concurs with the plan as stated in the body of this note and will attest to such by his/her cosignature. ATTENDING NOTE I, Gentry Garcia, have independently examined this patient and performed my own physical exam, as well as reviewed the documentation and edited where necessary. I have discussed in detail with the resident / student the findings and plan of treatment as documented by the resident / student and edited their note. I agree with their findings and treatment plan and have edited their documentation. I will continue to follow the patient during this hospital stay. Time spent on discharge 35 minutes Stewart Wasserman DO May 23, 2020 09:15 GENTRY GARCIA MD May 23, 2020 09:26
== END 2020-05-23 13:45 | DRG 871 ==
LOC: M ED 23:06 → M ED INP 05-18 03:59 → M PCU 05-18 05:12 → M ICU 05-18 17:03 → M MSPAV 05-20 10:56
PROVIDERS: ADMIT Internal Medicine; ATTEND Internal Medicine
PROC: 06HM33Z Insertion of Infusion Device into Right Femoral Vein, Percutaneous Approach (ICD-10-PCS; principal; 2020-05-18)
DX: A41.9 Sepsis, unspecified organism (principal); R65.21 Severe sepsis with septic shock; E11.10 Type 2 diabetes mellitus with ketoacidosis without coma; A04.72 Enterocolitis due to Clostridium difficile, not specified as recurrent; N17.9 Acute kidney failure, unspecified; J98.11 Atelectasis; E87.1 Hypo-osmolality and hyponatremia; E87.2 Acidosis; E11.51 Type 2 diabetes mellitus with diabetic peripheral angiopathy without gangrene; I95.9 Hypotension, unspecified; I48.91 Unspecified atrial fibrillation; E87.6 Hypokalemia; E83.42 Hypomagnesemia; Z89.511 Acquired absence of right leg below knee; Z89.512 Acquired absence of left leg below knee; Z79.899 Other long term (current) drug therapy; Z88.0 Allergy status to penicillin; D50.9 Iron deficiency anemia, unspecified; E78.5 Hyperlipidemia, unspecified; I10 Essential (primary) hypertension; Z66 Do not resuscitate

== ENCOUNTER 2022-02-28 06:03 | Day surgery (SDC) | payer MEDICARE, MEDICAID ==
[~2022-02-28] VITALS: Ht 175.3 cm; Wt 68.0 kg
[~2022-02-28 06:03] MED LIST changes: +ASPI-569 PO; -ASPI81TAEC PO; +BASA100I SQ; +BSS IRRIG/VANCO(10MG)/TOBRA(5MG)/EPINEPH(1:1000-0.5CC)500ML BAG-ORONLY IR ONE; +CYCLOPENTOLATE 1% OPHTH SOLN 2 ML BTL OS SCH; +DIFI200T PO; +ELIQ5TAB PO; +ERGO500029 PO; +ESOM40CA35 PO; +LIDOCAINE 3.5 % 1ML OPHTH TOPICAL GEL OU ONE; +MED REC COMMENT; +NOVOINJ3 SQ; +OFLOXACIN 0.3 % (OCUFLOX) OPTH SOL 5ML OS ONE; +OMEP-173 PO; +PHENYLEPHRINE 10% OPHTH SOL 5ML OS PRN; +PHENYLEPHRINE 2.5% OPHTH SOL 2ML OS SCH; +SENN-53 PO; +SERT25TA21 PO; +TORS10TA3 PO; +TORS20TA2 PO; +TROPICAMIDE 1% OPHTH SOLN 15ML OS SCH
[2022-02-28] MEDS ORDERED: LIDOCAINE 1% 1ML PF SYRINGE (OR EYE CASES) As Ordered ONE (06:53)
[2022-02-28] MEDS ORDERED: MIDAZOLAM INJ 2MG/2ML VIAL (J2250 PER 1MG) As Ordered ONE (07:11)
[2022-02-28] MEDS ORDERED: INSULIN LISPRO (NovoLOG) PER UNIT SC PRN (07:25)
[2022-02-28 08:06] VITALS: BP 139/87
== END 2022-02-28 08:50 | disposition home or self-care (01) ==
LOC: M SDC 06:03
PROVIDERS: ATTEND Ophthalmology
DX: H25.12 Age-related nuclear cataract, left eye (principal); H57.03 Miosis; I10 Essential (primary) hypertension; E11.9 Type 2 diabetes mellitus without complications; Z79.4 Long term (current) use of insulin; I48.91 Unspecified atrial fibrillation; I50.9 Heart failure, unspecified; E78.5 Hyperlipidemia, unspecified; K21.9 Gastro-esophageal reflux disease without esophagitis; Z79.899 Other long term (current) drug therapy; Z88.0 Allergy status to penicillin
CPT/HCPCS: 66982; J1815; J2250; V2788

== ENCOUNTER → 2022-06-06 | Day surgery (SDC) | payer MEDICARE, MEDICAID ==
[~2022-06-06] VITALS: Ht 170.2 cm; Wt 82.6 kg
[~2022-06-06] MED LIST changes: -CYCLOPENTOLATE 1% OPHTH SOLN 2 ML BTL OS SCH; +CYCLOPENTOLATE 1% OPHTH SOLN 2ML BTL OD SCH; +INSU100I6 SC; +INSULIN LISPRO (NovoLOG) PER UNIT SC PRN; -LEVE1INJ5 SC; +LIDOCAINE 1% SDV 5ML VIAL As Ordered ONE; +OFLOXACIN 0.3 % (OCUFLOX) OPTH SOL 5ML OD ONE; -OFLOXACIN 0.3 % (OCUFLOX) OPTH SOL 5ML OS ONE; +PHENYLEPHRINE 10% OPHTH SOL 5ML OD PRN; -PHENYLEPHRINE 10% OPHTH SOL 5ML OS PRN; +PHENYLEPHRINE 2.5% OPHTH SOL 2ML OD SCH; -PHENYLEPHRINE 2.5% OPHTH SOL 2ML OS SCH; +ROSU5TAB5 PO; +TROPICAMIDE 1% OPHTH SOLN 15ML OD SCH; -TROPICAMIDE 1% OPHTH SOLN 15ML OS SCH; +TRUL10IN SC
[2022-06-06 07:39] VITALS: BP 165/93
== END | disposition home or self-care (01) ==
LOC: M SDC 07:14
PROVIDERS: ATTEND Ophthalmology
DX: H25.11 Age-related nuclear cataract, right eye (principal); H40.811 Glaucoma with increased episcleral venous pressure, right eye; Z53.09 Procedure and treatment not carried out because of other contraindication; Z79.01 Long term (current) use of anticoagulants

== ENCOUNTER 2022-07-25 06:04 | Day surgery (SDC) | payer MEDICARE, MEDICAID ==
[~2022-07-25] VITALS: Ht 167.6 cm; Wt 97.5 kg
[~2022-07-25 06:04] MED LIST changes: -CYCLOPENTOLATE 1% OPHTH SOLN 2ML BTL OD SCH; +INSULIN LISPRO (NovoLOG) PER UNIT SC ONE; -INSULIN LISPRO (NovoLOG) PER UNIT SC PRN; -LIDOCAINE 1% SDV 5ML VIAL As Ordered ONE; -PHENYLEPHRINE 2.5% OPHTH SOL 2ML OD SCH; -TROPICAMIDE 1% OPHTH SOLN 15ML OD SCH
[2022-07-25] MEDS: CYCLOPENTOLATE 1% OPHTH SOLN 2ML BTL OD SCH ×2 (06:49→06:50)
[2022-07-25] MEDS: TROPICAMIDE 1% OPHTH SOLN 15ML OD SCH ×2 (06:49→06:50)
[2022-07-25] MEDS: PHENYLEPHRINE 2.5% OPHTH SOL 2ML OD SCH ×2 (06:49→06:50)
[2022-07-25] MEDS ORDERED: LIDOCAINE 1% SDV 5ML VIAL As Ordered ONE (06:50)
[2022-07-25] MEDS ORDERED: LIDOCAINE 2% W/EPINEPHRINE 20ML VIAL **PRES FREE As Ordered ONE (07:02)
[2022-07-25] MEDS ORDERED: fentaNYL 100 MCG/2 ML INJECTION As Ordered ONE (07:03)
[2022-07-25] MEDS ORDERED: MIDAZOLAM INJ 2MG/2ML VIAL As Ordered ONE (07:03)
[2022-07-25] MEDS ORDERED: DUOVISC (0.50ML VISCOAT/0.85ML PROVISC) OPHTH KIT IO ONE (07:51)
[2022-07-25 12:23] VITALS: BP 155/78
[2022-07-25] MEDS ORDERED: GLUCOSE 4GM CHEW TABLET PO PRN (12:50)
[2022-07-25] MEDS ORDERED: DEXTROSE 50% 50ML SYRINGE IV PRN (12:50)
[2022-07-25] MEDS ORDERED: GLUCAGON INJ 1MG VIAL SC PRN (12:50)
== END 2022-07-25 13:10 | disposition home or self-care (01) ==
LOC: M SDC 06:04
PROVIDERS: ATTEND Ophthalmology
DX: H25.11 Age-related nuclear cataract, right eye (principal); H40.811 Glaucoma with increased episcleral venous pressure, right eye; I48.91 Unspecified atrial fibrillation; H57.03 Miosis; I50.9 Heart failure, unspecified; I10 Essential (primary) hypertension; E78.5 Hyperlipidemia, unspecified; E11.9 Type 2 diabetes mellitus without complications; K21.9 Gastro-esophageal reflux disease without esophagitis; D64.9 Anemia, unspecified; F41.9 Anxiety disorder, unspecified; F32.A Depression, unspecified; Z88.0 Allergy status to penicillin; Z79.01 Long term (current) use of anticoagulants; Z79.4 Long term (current) use of insulin; Z79.899 Other long term (current) drug therapy
CPT/HCPCS: 66183; 66987; C1783; J1815; J2250; J3010; V2632